=== PATIENT | female | born 1980 | race Caucasian/White ===

== ENCOUNTER 2016-06-01 08:57 | Emergency (ER) | payer OTHER ==
[2016-06-01 09:13] VITALS: BP 142/86
--- NOTE | 2016-06-01 10:06 | UC ---
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 today denies fever and chills left side of left neck pain that started 3 days ago has become painful with movement worse with coughing constant aching pain that radiates into top of her back taking ibuprofen for pain with some relief - History of Current Complaint Chief Complaint: UCGeneralIllness Stated Complaint: SINUS ISSUE NECK/EAR PAIN Time Seen by Provider: 06/01/16 10:04 Hx Obtained From: Patient Hx Last Menstrual Period: 05/28/16 - Allergies/Home Medications Allergies/Adverse Reactions: Allergies Allergy/AdvReac Type Severity Reaction Status Date / Time Latex Allergy Itching Verified 06/06/15 10:50 Home Medications: Home Medications Ibuprofen TAB* [Motrin TAB* 600 MG] 600 mg PO PRN 06/01/16 [History] PMH/Surg Hx/FS Hx/Imm Hx Previously Healthy: No - bronchitis Endocrine History Of: Reports: Diabetes - type 2 Denies: Thyroid Disease Cardiovascular History Of: Reports: Hypertension Denies: Cardiac Disorders, Pacemaker/ICD Respiratory History Of: Reports: Asthma, Bronchitis Denies: COPD GI/ History Of: Reports: Gall Bladder Disease - s/p cholecystectomy 2004 Denies: Gastroesophageal Reflux, Renal Disease Neurological History Of: Denies: CVA, Dementia, Seizures Psychological History Of: Reports: Depression Other History Of: Negative For: Anticoagulant Therapy - Surgical History Surgical History: Yes Surgery Procedure, Year, and Place: 1993 tonsils, 2003 , 2004 cholecystectomy, 2012 complete tooth extraction (uppers & lowers) - Family History Known Family History: Positive: None, Cardiac Disease, Other - Positive FMHx for URI Negative: Hypertension, Diabetes - Social History Occupation: Employed Full-time Lives: With Family Alcohol Use: None Substance Use Type: None Smoking Status (MU): Heavy Every Day Tobacco Smoker Amount Used/How Often: 1 pack /day Household Exposure Type: Cigarettes Cessation Counseling: Patient Advised to Stop Review of Systems Constitutional: Negative Skin: Negative Eyes: Negative ENT: Ear Ache, Nasal Discharge Respiratory: Cough Cardiovascular: Negative Gastrointestinal: Negative Genitourinary: Negative Motor: Negative Neurovascular: Negative Musculoskeletal: Negative Neurological: Negative Psychological: Negative All Other Systems Reviewed And Are Negative: Yes Physical Exam Triage Information Reviewed: Yes Appearance: No Pain Distress, Well-Nourished, Obese Vital Signs: Initial Vital Signs Temp 98.4 F 06/01/16 09:07 Pulse 80 06/01/16 09:07 Resp 18 06/01/16 09:07 BP 142/86 06/01/16 09:07 Pulse Ox 99 06/01/16 09:07 Vital Signs Reviewed: Yes Eyes: Positive: Conjunctiva Clear ENT: Positive: Pharyngeal erythema, Nasal congestion, Nasal drainage, TM bulging , TM red - left, Other: - frontal and maxillary sinus tenderness. Negative: Tonsillar swelling, Tonsillar exudate Neck: Positive: No Lymphadenopathy, Other: - Neck has no noted deformities . Curvature of cervical spine within normal limits. Spinous processes of cervical spine palpable, midline, and non-tender, No step-offs, Flexion, extension, of cervical spine causes no discomfort. turning head yto the laft causes slight discomfort, tenderness in trapezius left side Respiratory: Positive: Lungs clear, Normal breath sounds, No respiratory distress, No accessory muscle use Cardiovascular: Positive: RRR, No Murmur, Pulses Normal Abdomen Description: Positive: Nontender, Soft, Distended Bowel Sounds: Positive: Present Musculoskeletal: Positive: No Edema, Other: - see meck Neurological: Positive: Alert Psychological Exam: Normal Skin Exam: Normal Throat Pain/Nasal Course/Dx - Course Course Of Treatment: exam completed. will treat for otitis media and sinusitis secondary to viral illness, pt afebrile and lungs are clear -no imaging. neck pain - will rx for muscle relaxer NSAIDS and continue flexeril with PT followup if no improvement - Differential Dx/Diagnosis Differential Diagnosis/HQI/PQRI: Sinusitis, URI, Other - bronchitis,neck pain Provider Diagnoses: neck pain, sinusitis, otitis media-left Discharge - Discharge Plan Condition: Stable Disposition: HOME Prescriptions: Amoxicillin/Clavulanate TAB* [Augmentin TAB 875*] 875 mg PO BID #20 tab Benzonatate CAP* [Tessalon 100 MG CAP*] 100 mg PO TID PRN #30 cap PRN Reason: Cough Cyclobenzaprine TAB* [Flexeril 10 MG TAB*] 10 mg PO BID PRN #10 tab PRN Reason: Spasms - Muscle Patient Education Materials: Sinusitis (ED), Otitis Media (ED), Neck Pain (ED) Referrals: Tuyet Alvarado NP [Primary Care Provider] - Additional Instructions: Your blood pressure is elevated. Please contact your primary care provider within 1 day -4 weeks for further evaluation. Start flexeril as directed. Do not drink alcohol or drive while taking flexeril. Please call physical therapy for further evaluation and treatment if your neck pain doesn't improve apply heat, use massage or OTC icy hot patches for relief. Take ibuprofen for fever or pain. Please take antibiotic as directed Use your albuterol inhaler every 4-6 hours when needed for wheezing, shortness of breath or uncontrolled coughing. Increase fluids and rest Take acetaminophen or ibuprofen for fever or pain Please review your discharge instructions. If your symptoms do not improve please call your primary care provider or return to urgent care.
== END 2016-06-01 10:40 | disposition home or self-care (01) ==
LOC: UCEAST 08:57
DX: J32.1 Chronic frontal sinusitis (principal); J32.0 Chronic maxillary sinusitis; H66.92 Otitis media, unspecified, left ear; M54.2 Cervicalgia; E11.9 Type 2 diabetes mellitus without complications; I10 Essential (primary) hypertension; F17.210 Nicotine dependence, cigarettes, uncomplicated; Z71.6 Tobacco abuse counseling; E66.9 Obesity, unspecified; Z68.43 Body mass index [BMI] 50.0-59.9, adult; Z91.040 Latex allergy status
CPT/HCPCS: 99212; G0463

== ENCOUNTER 2016-12-04 10:33 | Emergency (ER) | payer OTHER ==
[2016-12-04 11:00] VITALS: BP 140/84
--- NOTE | 2016-12-04 11:04 | UC ---
Truncal Trauma HPI - HPI Summary HPI Summary: 36 YEAR OLD FEMALE PRESENTS WITH COMPLAINS OF LEFT RIB PAIN AFTER COUGHING. - History Of Current Complaint Chief Complaint: UCRespiratory Stated Complaint: RIB PAIN Time Seen by Provider: 12/04/16 11:03 Hx Obtained From: Patient Hx Last Menstrual Period: 11/29/16 Onset/Duration: Sudden Onset Severity Initially: Moderate Severity Currently: Moderate Pain Scale Used: 0-10 Numeric - 5 Mechanism Of Injury: Other - COUGH Aggravating Factor(s): Nothing Alleviating factor(s): Nothing Associated Signs And Symptoms: Positive: Negative - Allergies/Home Medications Allergies/Adverse Reactions: Allergies Allergy/AdvReac Type Severity Reaction Status Date / Time Hydrocodone Allergy Rash Verified 12/04/16 10:54 Latex Allergy Itching Verified 12/04/16 10:54 Home Medications: Home Medications Cetirizine* [ZyrTEC 10 MG TAB*] 5 mg PO DAILY 12/04/16 [History Confirmed ] Fluoxetine HCl [Prozac] 10 mg PO DAILY 12/04/16 [History Confirmed 12/04/16] Fluticasone-Salmeterol 500-50* [Advair Diskus 500-50*] 1 puff INH BID 12/04/16 [ History Confirmed 12/04/16] Insulin GLARGINE(*) [Lantus(*)] 0 units SUBCUT ONCE 12/04/16 [History Confirmed 12/04/16] Montelukast Sodium TAB* [Singulair TAB*] 5 mg PO DAILY 12/04/16 [History Confirmed 12/04/16] PMH/Surg Hx/FS Hx/Imm Hx Previously Healthy: Yes Other History Of: Negative For: Anticoagulant Therapy - Surgical History Surgical History: Yes Surgery Procedure, Year, and Place: 1993 tonsils, 2003 , 2004 cholecystectomy, 2013 complete tooth extraction (uppers & lowers) - Family History Known Family History: Positive: None, Cardiac Disease, Other - Positive FMHx for URI Negative: Hypertension, Diabetes - Social History Alcohol Use: None Substance Use Type: None Smoking Status (MU): Heavy Every Day Tobacco Smoker Amount Used/How Often: 1 pack /day Household Exposure Type: Cigarettes Review of Systems Constitutional: Negative Skin: Negative Eyes: Negative ENT: Negative Respiratory: Negative Cardiovascular: Negative Gastrointestinal: Negative Genitourinary: Negative Motor: Negative Neurovascular: Negative Musculoskeletal: Other: - LEFT RIB PAIN Neurological: Negative Psychological: Negative All Other Systems Reviewed And Are Negative: Yes Physical Exam Triage Information Reviewed: Yes Vital Signs: Initial Vital Signs Temp 36.6 C 12/04/16 10:55 Pulse 73 12/04/16 10:55 Resp 20 12/04/16 10:55 BP 140/84 12/04/16 10:55 Pulse Ox 100 12/04/16 10:55 Eye Exam: Normal ENT Exam: Normal Dental Exam: Normal Neck exam: Normal Neck: Positive: 1 Respiratory Exam: Normal Cardiovascular Exam: Normal Abdominal Exam: Normal Musculoskeletal: Positive: Other: - LEFT RIB PAIN Neurological Exam: Normal Psychological Exam: Normal Skin Exam: Normal Truncal Trauma Course/Dx - Differential Dx/Diagnosis Provider Diagnoses: LEFT RIB PAIN Discharge - Discharge Plan Condition: Stable Disposition: HOME Prescriptions: Methocarbamol TAB* [Robaxin 500 MG TAB*] 500 mg PO TID PRN #30 tab PRN Reason: Spasms Patient Education Materials: Rib Contusion (ED) Referrals: Tuyet Alvarado NP [Primary Care Provider] -
--- NOTE | 2016-12-04 11:49 | RAD ---
HISTORY: Left-sided rib pain, cough COMPARISONS: Chest x-ray dated November 29, 2016 VIEWS: 8, Frontal view of the chest with frontal and oblique views of the left hemithorax FINDINGS: There is no displaced rib fracture or pneumothorax. The visualized lungs are clear. IMPRESSION: NO DISPLACED RIB FRACTURE OR PNEUMOTHORAX.
== END 2016-12-04 12:09 | disposition home or self-care (01) ==
LOC: UCEAST 10:33
DX: M89.8X8 Other specified disorders of bone, other site (principal); Z79.4 Long term (current) use of insulin; F17.210 Nicotine dependence, cigarettes, uncomplicated
CPT/HCPCS: 99212; G0463

== ENCOUNTER 2016-12-04 19:58 | Emergency (ER) | payer OTHER ==
--- NOTE | 2016-12-04 20:44 | ED ---
HPI Cardiac - HPI Summary HPI Summary: Pt here w/ Lt sided rib pain s/p coughing earlier today. [place] a "pop" and has had pain w/ deep breath on Lt side of ribs since. Has had URI w/ cough this past week - cough is dry. Used nebulizer this morning to help her cough and this is when she had her incident - no pain prior to this. Was seen at and rib XR/CXR reveal no fx nor pneumothorax. She was diagnosed with a rib contusion. She is here today as she is still concerned about her pain. Denies fever, chills, chest pain, N/V/D, shortness of breath or trouble breathing. States she's fractured a rib coughing in this fashion before. - History of Current Complaint Chief Complaint: EDChestWallPain Stated Complaint: RIB PAIN Time Seen by Provider: 12/04/16 20:19 Hx Obtained From: Patient Hx Last Menstrual Period: 11/29/16 Pain Intensity: 10 - Allergy/Home Medications Allergies/Adverse Reactions: Allergies Allergy/AdvReac Type Severity Reaction Status Date / Time Hydrocodone Allergy Rash Verified 12/04/16 10:54 Latex Allergy Itching Verified 12/04/16 10:54 PMH/Surg Hx/FS Hx/Imm Hx Previously Healthy: Yes Endocrine/Hematology History: Reports: Hx Diabetes - type 2 Denies: Hx Anticoagulant Therapy, Hx Thyroid Disease Cardiovascular History: Reports: Hx Hypertension Denies: Hx Pacemaker/ICD Respiratory History: Reports: Hx Asthma - uses nebulizer treatments PRN, Other Respiratory Problems/Disorders - allergic rhinits, smoker Denies: Hx Chronic Obstructive Pulmonary Disease (COPD) GI History: Reports: Hx Gall Bladder Disease - s/p cholecystectomy 2004 History: Denies: Hx Renal Disease Musculoskeletal History: Reports: Other Musculoskeletal History - H/o rib fx - no residual Sensory History: Denies: Hx Contacts or Glasses Opthamlomology History: Denies: Hx Contacts or Glasses Neurological History: Denies: Hx Dementia, Hx Seizures Psychiatric History: Reports: Hx Depression Denies: Hx Substance Abuse - Surgical History Surgery Procedure, Year, and Place: 1993 tonsils, 2003 , 2004 cholecystectomy, 2012 complete tooth extraction (uppers & lowers) Infectious Disease History: No Infectious Disease History: Denies: Hx Clostridium Difficile, Hx Hepatitis, Hx Human Immunodeficiency Virus (HIV), Hx of Known/Suspected MRSA, Hx Shingles, Hx Tuberculosis, Hx Known/ Suspected VRE, Hx Known/Suspected VRSA, History Other Infectious Disease, Traveled Outside the [place] in Last 30 Days - Family History Known Family History: Positive: None, Cardiac Disease, Other - Positive FMHx for URI Negative: Hypertension, Diabetes - Social History Alcohol Use: None Hx Substance Use: No Substance Use Type: Reports: None Hx Tobacco Use: Yes Smoking Status (MU): Heavy Every Day Tobacco Smoker Amount Used/How Often: 1 pack /day Review of Systems Constitutional: Negative Negative: Fever, Chills, Fatigue Cardiovascular: Negative Negative: Chest Pain Positive: Cough. Negative: Shortness Of Breath Gastrointestinal: Negative Negative: Abdominal Pain, Vomiting, Diarrhea, Nausea Positive: no symptoms reported Skin: Negative Negative: Rash, Bruising Neurological: Negative Positive: Anxious - concerned All Other Systems Reviewed And Are Negative: Yes Physical Exam Triage Information Reviewed: Yes Vital Signs On Initial Exam: Initial Vitals Temp Pulse Resp BP Pulse Ox 98.8 F 78 14 147/68 98 12/04/16 20:09 12/04/16 20:09 12/04/16 20:09 12/04/16 20:09 12/04/16 20:09 Vital Signs Reviewed: Yes Appearance: Positive: Well-Appearing, No Pain Distress - tearful with anxiety but appears comfortable sitting and breathing otherwise, Obese Skin: Positive: Warm, Dry - no erythema, no ecchymosis Head/Face: Positive: Normal Head/Face Inspection Eyes: Positive: Normal, EOMI, Conjunctiva Clear. Negative: Conjunctiva Inflammed, Discharge ENT: Positive: Hearing grossly normal Respiratory/Lung Sounds: Positive: Clear to Auscultation, Breath Sounds Present , Other - Lt anterior/lateral ribs about level 9-11 TTP - no flail chest, no gross deformity. Negative: Rales, Rhonchi, Stridor, Tracheal Deviation, Wheezes Cardiovascular: Positive: Normal, RRR, S1, S2. Negative: Murmur, Rub Abdomen Description: Positive: Nontender, Soft Bowel Sounds: Positive: Present Musculoskeletal: Positive: Normal, Strength/ROM Intact - can lift arm w/o pain here Neurological: Positive: Normal, Sensory/Motor Intact, Alert, Oriented to Person Place, Time, CN Intact II-III Psychiatric: Positive: Anxious - [place] Coma Scale Coma Scale Total: 15 Diagnostics - Vital Signs Vital Signs Temp Pulse Resp BP Pulse Ox 12/04/16 20:09 98.8 F 78 14 147/68 98 - Laboratory Lab Statement: Any lab studies that have been ordered have been reviewed, and results considered in the medical decision making process. Disposition - Course Course Of Treatment: Pt appears to have intercostal rib sprain/strain. No clinical s/sx of anything more serious (ie. PE, etc). Advised supportive care and danger s/sx discussed for when to return to ED. Otherwise, f/u w/ PCP. - Diagnoses Provider Diagnoses: Intercostal muscle strain Discharge - Discharge Plan Condition: Stable Disposition: HOME Patient Education Materials: Muscle Strain (ED), Rib Contusion (ED) Forms: *Work Release Referrals: Tuyet Alvarado NP [Primary Care Provider] - Additional Instructions: Rest, ice You have received a lidoderm pain patch here tonight - if this helps, you may request more through PCP You may also take ibuprofen with food alternating with acetaminophen for pain Use a pillow to brace ribs when sneezing or coughing Follow-up with PCP this week if same or worse *If you develop shortness of breath, bloody cough, fever, chills, fatigue, chest or back pain, return to ED
[2016-12-04] MEDS ORDERED: Lidocaine PATCH 5%* 1 PATCH ONE (21:28)
[2016-12-04] MEDS ORDERED: Lidocaine PATCH 5%* 1 PATCH TRANSDERM SCH (22:00)
[2016-12-04 22:43] VITALS: BP 136/67
[2016-12-05] MEDS ORDERED: Lidocaine Patch REMOVE* 1 NOTE MISC SCH (21:00)
== END 2016-12-04 22:35 | disposition home or self-care (01) ==
LOC: ED 19:58
DX: S29.019A Strain of muscle and tendon of unspecified wall of thorax, initial encounter (principal); X50.9XXA Other and unspecified overexertion or strenuous movements or postures, initial encounter; Y92.9 Unspecified place or not applicable; E11.9 Type 2 diabetes mellitus without complications; I10 Essential (primary) hypertension; J45.909 Unspecified asthma, uncomplicated; F17.210 Nicotine dependence, cigarettes, uncomplicated
CPT/HCPCS: 99282; A9270-GY

== ENCOUNTER 2017-02-11 01:32 | Emergency (ER) | payer OTHER ==
[2017-02-11] MEDS ORDERED: Ibuprofen TAB* 600 MG PO ONE (02:08)
[2017-02-11] MEDS ORDERED: traMADol TAB* 50 MG PO ONE (02:08)
--- NOTE | 2017-02-11 02:53 | ED ---
Lower Extremity - HPI Summary HPI Summary: Patient presents to the ED with CC of right thigh redness, pain, swelling with a definite line from just below the knee extending to the anterior thigh with a palpable cord. Denies trauma or puncture wounds. Denies drug use. Patient is a smoker, on bedrest most of the time. Denies recent travel or hx of PE or DVT. PMHX significant for diabetes, obesity and HTN. She states she first noticed the erythema just below the knee on the lateral side as a small bump. In the past few days it has extended through the lateral side of the knee and to the anterior thigh. Now also having warmth and erythema surrounding suggestive of a co-existing cellulitis. She denies fevers, sweats, chills or recent illness. She has been feeling otherwise well. She denies numbness, tingling. She has been ambulating, but states the area is painful on palpation and standing. Better with rest. She has not taken anything for relief. - History of Current Complaint Chief Complaint: EDExtremityLower Stated Complaint: RT LEG PAIN Time Seen by Provider: 02/11/17 01:41 Hx Obtained From: Patient Hx Last Menstrual Period: 11/29/16 Mechanism Of Injury: Unknown Onset of Pain: Days Onset/Duration: Days Severity Initially: Severe Severity Currently: Severe Pain Intensity: 10 Pain Scale Used: 0-10 Numeric Timing: Constant Location: Is Discrete @ - right leg Associated Signs And Symptoms: Positive: Swelling, Redness Aggravating Factor(s): Standing, Ambulation Alleviating Factor(s): Rest Able to Bear Weight: No - Risk Factors Gout Risk Factors: Diabetes, Hypertension, Renal Disease, Hyperlipidemia, Obesity, Peripherial Vascular Disease DVT Risk Factors: Smoking, Recent Period Of Bedrest Septic Arthritis Risk Factor: Negative - Allergies/Home Medications Allergies/Adverse Reactions: Allergies Allergy/AdvReac Type Severity Reaction Status Date / Time Hydrocodone Allergy Rash Verified 12/04/16 10:54 Latex Allergy Itching Verified 12/04/16 10:54 PMH/Surg Hx/FS Hx/Imm Hx Previously Healthy: Yes Endocrine/Hematology History: Reports: Hx Diabetes - type 2 Denies: Hx Anticoagulant Therapy, Hx Thyroid Disease Cardiovascular History: Reports: Hx Hypertension Denies: Hx Pacemaker/ICD Respiratory History: Reports: Hx Asthma - uses nebulizer treatments PRN, Other Respiratory Problems/Disorders - allergic rhinits, smoker Denies: Hx Chronic Obstructive Pulmonary Disease (COPD) GI History: Reports: Hx Gall Bladder Disease - s/p cholecystectomy 2004 History: Denies: Hx Renal Disease Musculoskeletal History: Reports: Other Musculoskeletal History - H/o rib fx - no residual Sensory History: Denies: Hx Contacts or Glasses Opthamlomology History: Denies: Hx Contacts or Glasses Neurological History: Denies: Hx Dementia, Hx Seizures Psychiatric History: Reports: Hx Depression Denies: Hx Substance Abuse - Surgical History Surgery Procedure, Year, and Place: 1993 tonsils, 2003 , 2004 cholecystectomy, 2012 complete tooth extraction (uppers & lowers) - Immunization History Hx Pertussis Vaccination: No Immunizations Up to Date: Unable to Obtain/Confirm Infectious Disease History: No Infectious Disease History: Denies: Hx Clostridium Difficile, Hx Hepatitis, Hx Human Immunodeficiency Virus (HIV), Hx of Known/Suspected MRSA, Hx Shingles, Hx Tuberculosis, Hx Known/ Suspected VRE, Hx Known/Suspected VRSA, History Other Infectious Disease, Traveled Outside the [place] in Last 30 Days - Family History Known Family History: Positive: None, Cardiac Disease, Other - Positive FMHx for URI Negative: Hypertension, Diabetes - Social History Occupation: Unemployed Lives: Alone Alcohol Use: None Hx Substance Use: No Substance Use Type: Reports: None Hx Tobacco Use: Yes Smoking Status (MU): Heavy Every Day Tobacco Smoker Amount Used/How Often: 1 pack /day Review of Systems Constitutional: Negative Negative: Fever, Chills, Fatigue, Skin Diaphoresis Eyes: Negative Cardiovascular: Negative Respiratory: Negative Genitourinary: Negative Positive: no symptoms reported, see HPI Positive: Other - erythema and warm upper right upper thigh with swelling. Palpable cord from just below the knee to the upper thigh measruing 8inches. Psychological: Normal All Other Systems Reviewed And Are Negative: Yes Physical Exam Triage Information Reviewed: Yes Vital Signs On Initial Exam: Initial Vitals Temp Pulse Resp BP Pulse Ox 97.7 F 75 18 101/76 98 02/11/17 01:35 02/11/17 01:35 02/11/17 01:35 02/11/17 01:35 02/11/17 01:35 Vital Signs Reviewed: Yes Appearance: Positive: Well-Appearing, Well-Nourished, Obese Skin: Positive: Warm, Skin Color Reflects Adequate Perfusion, Other - erythema and warm upper right upper thigh with swelling. Palpable cord from just below the knee to the upper thigh measruing 8inches Head/Face: Positive: Normal Head/Face Inspection Eyes: Positive: EOMI, JANY, Conjunctiva Clear Neck: Positive: Supple, Nontender, No Lymphadenopathy Respiratory/Lung Sounds: Positive: Clear to Auscultation, Breath Sounds Present Cardiovascular: Positive: RRR, Pulses are Symmetrical in both Upper and Lower Extremities Musculoskeletal: Positive: Normal Neurological: Positive: Speech Normal Psychiatric: Positive: Affect/Mood Appropriate - [place] Coma Scale Coma Scale Total: 15 Diagnostics - Vital Signs Vital Signs Temp Pulse Resp BP Pulse Ox 02/11/17 01:35 97.7 F 75 18 101/76 98 - Laboratory Result Diagrams: 02/11/17 02:45 02/11/17 02:45 Lab Statement: Any lab studies that have been ordered have been reviewed, and results considered in the medical decision making process. Lower Extremity Course/Dx - Course Course Of Treatment: Patient is evaluated for superficial thrombophlebitis vs. DVT vs. suppurative thrombophlembitis or other pathology. Erythema and warm upper right upper thigh with slight swelling, although unable to definitevely say d/t obesity. Palpable cord from just below the knee to the upper thigh measruing 8 inches. Painful to palpation. Unable to complete US on the weekend/ overnights. I have informed the patient we will await labs in the hopes to begin a 3-day course of xarelto. I have also encouraged her to use ice, elevation and take ibuprofen for phlebitis. Signed out to Dr. Bahena pending d- dimer and labs. Given tramadol 50mg in ED for pain. Patient remains tearful on exam. - Diagnoses Differential Diagnosis/HQI/PQRI: Positive: Phlebitis Provider Diagnoses: Phlebitis Discharge - Discharge Plan Condition: Good Disposition: HOME Prescriptions: Rivaroxaban TAB(*) [Xarelto 15 mg(*)] 15 mg PO BID 3 Days #6 tab Patient Education Materials: Superficial Thrombophlebitis (ED) Referrals: Tuyet Alvarado NP [Primary Care Provider] - Additional Instructions: d/c ibuprofen, warm compresses, elevation ultrasound of the right leg in AM Monday
[2017-02-11 03:00] LABS: Hematocrit 40 % (35-47); Hemoglobin 13.4 g/dl (12.0-16.0); Mean Corpuscular HGB Conc 33 g/dl (31-36); Mean Corpuscular Hemoglobin 28 pg (27-31); Mean Corpuscular Volume 83 fL (80-97); Mean Platelet Volume 8 um3 (7.4-10.4); Red Blood Count 4.82 10^6/ul (4.0-5.4); Red Cell Distribution Width 14 % (10.5-15); White Blood Count 12.2 10^3/ul (3.5-10.8)
[2017-02-11 03:13] LABS: Albumin 3.6 g/dL (3.2-5.2); BUN/Creatinine Ratio 23.3 (8-20); C Reactive Protein 24.63 mg/L (< 5.00); Calcium 8.9 mg/dL (8.6-10.3); EGFR African American 95.5 (>60); EGFR Non-African American 74.2 (>60); Potassium 3.9 mmol/L (3.5-5.0); Total Bilirubin 0.5 mg/dL (0.2-1.0); Total Protein 6.6 g/dL (6.4-8.9)
[2017-02-11] MEDS ORDERED: Rivaroxaban TAB(*) 15 MG PO ONE (03:48)
[2017-02-11 04:41] VITALS: BP 110/79
== END 2017-02-11 04:39 | disposition home or self-care (01) ==
LOC: ED 01:32
DX: I80.9 Phlebitis and thrombophlebitis of unspecified site (principal); F17.210 Nicotine dependence, cigarettes, uncomplicated; E11.9 Type 2 diabetes mellitus without complications; I10 Essential (primary) hypertension; E66.9 Obesity, unspecified
CPT/HCPCS: 36415; 80053; 85025; 85379; 86140; 99285; A9270-GY

== ENCOUNTER 2017-03-03 14:23 | Emergency (ER) | payer OTHER ==
[2017-03-03 14:31] VITALS: BP 141/74
--- OUTSIDE RECORDS SUMMARY | 2017-03-03 15:03 | XMS REPORT ---
:1980 External Reference #:[id number] Author Organization [facility] Address [address] [address] Phone [phone] Care Team Providers Name Role Phone Karla Rich MD Primary Care Physician Unavailable Payers Type Date Identification Numbers Payment Provider Subscriber Commercial Effective: Policy Number: [id number] [facility] [id number] [address] [address] [place] [address] Medigap Part B Expires: 2016 Policy Number: [id number] Medicaid Marya Pina Group Name: 1 1 [address] PayID: [id number] [place] [address] Commercial Expires: 2016 Policy Number: [employer] MNG Marya Pina [id number] [facility] Group Name: [id number] [address] [address] PayID: [id number] [place] [address] Commercial Effective: 2009 Policy Number: Total Care/[place] MNG Marya Pina [id number] [facility] Expires: 2012 PayID: [id number] [address] [address] [place] [address] Problems Date Description Provider Status Onset: 05/12/2011 Type II diabetes mellitus uncontrolled Constance Larkin M.D. Active Onset: 05/12/2011 Allergic rhinitis Constance Larkin M.D. Active Onset: 05/12/2011 Morbid obesity Constance Larkin M.D. Active Onset: 05/12/2011 Tobacco user Constance Larkin M.D. Active Onset: 03/14/2012 Benign essential hypertension Cristina Garcia M.D. Active Family History Date Family Member(s) Problem(s) Comments General Diabetes General Hypertension Social History Type Date Description Comments Marital Status Lives With Son Occupation [employer] Smoking Patient is a current smoker, 15 yrs smokes every day Smoking 1 pack/day tried quitting with patches which caused allergic contact dermatitis Allergies, Adverse Reactions, Alerts Date Description Reaction Status Severity Comments 05/21/2012 Hydrocodone Pt states she itch all over. active 08/17/2015 Latex active 05/12/2011 NKDA inactive Medications Medication Date Status Form Strength Qnty SIG Indications Ordering Provider Aspirin 02/13 Active Tablets 325mg 30tab 1 by mouth Karla /2017 s every day Bereket Rich Diclofenac 01/11 Active Solution 1.5% 150ml apply 5-10 Tuyet Sodium drops to Varn, N.P. affected area, 3-4 times a day Diclofenac 01/09 Active Gel 1% 100gm Apply 4 Gms Tuyet Sodium qid prn for Varn, N.P. pain Ibuprofen 10 Active Tablets 800mg 90tab by mouth I80.02 s three times Varn, N.P. a day as needed Lidocaine 10/ Active Ointment 5% 35uni apply ts externally Varn, N.P. as needed once daily Doxepin HCL 10/ Active Cream 5% 135gm Apply 2 - 3 Gms bid _ Varn, N.P. tid prn for neuropathic pain Advair Diskus 11/29 Active Aerosol 500-50mcg 60uni inhale one J45.909 /Dose ts dose by Varn, N.P. mouth twice daily Montelukast 11/29 Active Tablets 10mg 30tab 1 by mouth J45.41 Sodium s every day Varn, N.P. Nicorette 11/29 Active Gum 4mg 160un Chew 1 piece F17.218 its and tuck in Varn, N.P. your gums as needed. Freestyle Lite 10/19 Active 300un 2 times its daily or as Varn, N.P. needed dx e11.9 Freestyle 10/19 Active Misc 300un test up to 2 Tuyet Lancets its times a day Varn, N.P. or as needed Splint Wrist 10/04 Active Misc 1unit Wear this at M79.641 [place] Brace/Left-Rig s night Varn, N.P. ht/Reversible Basaglar 09/20 Active Solution 100Unit/M 30ml 64 units sc Tuyet Kwik Pen-Inject L daily in Am Varn, N.P. Metformin HCL 07/14 Active Tablets ER 500mg 120ta 4 by mouth E11.65 Tuyet ER /2016 24HR bs with dinner Varn, N.P. Fluconazole 05/27 Active Tablets 150mg 2tabs one by mouth may repeat Varn, N.P. in 3 days as needed Simethicone 04/29 Active Capsules 180mg 30cap 1 by mouth R19.7 s after each Varn, N.P. meal Fluoxetine HCL 03/02 Active Tablets 20mg 30tab take 1 F43.23 s tablet by Varn, N.P. mouth every day Ventolin HFA 02/14 Active Aerosol 108(90Bas 18uni 2 puffs by e) ts mouth four Varn, N.P. mcg/Act times a day as needed Freestyle Lite 12/28 Active Device 1unit check E11.65 Tuyet Blood Glucose s fingerstick Varn, N.P. Monitoring three times System daily or as needed, DX - E11.65 Januvia 10/11 Active Tablets 100mg 30tab 1 by mouth s every day Varn, N.P. Ipratropium 08/16 Active Solution 0.5-2.5(3 180un 1 vial in J20.9 [place] )mg/3ML its nebulizer Varn, N.P. rol Sulfate three times a day as needed for asthma Nebulizer 08/16 Active Device 1unit use three J20.9 s times a day Varn, N.P. as needed Nexium 06/[address] 20mg 30cap 1 by mouth R10.13 s every day Varn, N.P. Senna Laxative 06/06 Active Tablets 25mg 15tab 1 tab by K59.00 Noemy s mouth 1-2 MD Graeme times as needed Compression 04/22 Active Misc 2unit knee high I80.02 Stockings s stockings 20 Varn, N.P. - 30 mm Cetirizine HCL 04/22 Active Tablets 10mg 30tab 1 by mouth J30.9 s every day Varn, N.P. Ramipril 12/17 Active Capsules 5mg 30cap 1 by mouth I10 s every day Varn, N.P. Pen [place] 09/02 Active Misc 31G X 5 90uni use with Tuyet mm ts lantus subq Varn, N.P. everyday Lantus 08/30 Active Solution 100Unit/M 15ml inject 66 E11.65 Solostar Pen-Inject L units sc Varn, N.P. once daily Fluticasone 04/25 Active Suspension 50mcg/Act 16gm 1 spray each Tuyet Propionate nostril Varn, N.P. daily as needed Nebulizer 11/28 Active Kit J45.909 Cristina Compressor/Sean /2012 sagar Garciailter/7' M.D. Tubing/Aerosol T/Mthpiece Freestyle Lite 04/12 Active 100un use as Cristina Test Strip /2012 its directed Radha, every day or M.D. as needed dx: 250.02 Methocarbamol Active Tablets 1 by mouth Unknown /0000 twice a day as needed for spasm Xarelto 02/13 Hx Tablets 15mg 30tab (Not Karla /2017 s Taking)1 by Cotton, - mouth every M.D. /2016 Diclofenac 12/23 Hx Gel 3% 100gm Apply 0.5 Gm Tuyet Sodium gel bid Varn, N.P. - 01/09 Celebrex 12/09 Hx Capsules 200mg 30cap 1 by mouth R07.89 s every day Varn, N.P. Augmentin 12/09 Hx Tablets 875-125mg 20tab one by mouth R05 s every 12 Varn, N.P. - hours for 12/19 Benzonatate 12/09 Hx Capsules 200mg 60cap one by mouth s three times Varn, N.P. - daily as 01/08 needed for cough Lidocaine-Pril 12/05 Hx Cream 2.5-2.5% 30gm apply 10 gm Tuyet ocaine-Cream every 3 Varn, N.P. Base - hours as 12/23 needed for pain Prednisone 11/11 Hx Tablets 10mg 40tab 4 tablets by J20.9 s mouth for 4 Varn, N.P. - days 3 11/27 tablets by mouth for 4 days 2 tablets by mouth for 4 days 1 tablet by mouth for 4 days Augmentin 11/11 Hx Tablets 875-125mg 20tab one by mouth J20.9 s every 12 Varn, N.P. - hours for 11/21 Benzonatate 11/11 Hx Capsules 100mg 30cap one by mouth J20.9 s three times Varn, N.P. - daily as 11/25 needed for cough Pulmicort 10/04 Hx Aerosol 180mcg/Ac 1unit 2 puffs hal t s twice daily Varn, N.P. - 11/11 Doxycycline 09/29 Hx Tablets 100mg 20tab 1 tablet by Tuyet Hyclate s mouth bid x Varn, N.P. - 10 days 10/09 Augmentin 08/22 Hx Tablets 875-125mg 20tab one by mouth J20.9 s every 12 Varn, N.P. - hours for 09/01 Benzonatate 08/22 Hx Capsules 100mg 30cap one by mouth J20.9 s three times Varn, N.P. - daily as 09/06 needed for cough Prednisone 05/12 Hx Tablets 5mg 60tab 4 tabs po qd s x 4d then 3 Varn, N.P. - tabs po qd x 05/28 3d then tabs po qd x 2d then 1 tab po qd x 1 d then 1/2 tab po qd x 2d. Azithromycin 04/29 Hx Tablets 250mg 6tabs two tabs day J20.9 one, one Varn, N.P. - daily till 05/09 Vistaril 03/02 Hx Capsules 50mg 30cap one by mouth F43.23 s at bedtime Varn, N.P. - 11/29 Lotrisone 03/02 Hx Cream 1-0.05% 15gm apply B37.3 externally Varn, N.P. - bid-tid 03/16 Fluconazole 01/25 Hx Tablets 150mg 2tabs one by mouth July repeat Varn, N.P. - in 3 days as 04/29 Azithromycin 12/30 Hx Tablets 250mg 6tabs two tabs day J20.9 one, one Varn, N.P. - daily till 01/09 Prednisone 12/30 Hx Tablets 10mg J20.9 Ordering - Provider 01/13 Azithromycin 10/25 Hx Tablets 250mg 6tabs two tabs day H66.93 one, one Varn, N.P. - daily till 11/04 Tobramycin 08/24 Hx Solution 0.3% 5ml 1 drop in affected eye Varn, N.P. - every 4hours 08/31 x 7 Nystatin 08/16 Hx Suspension [id number] 16oz 4 B37.0 t/ML milliliters Varn, N.P. - four times a 07/25 day, swi and swallow for 14 days Azithromycin 08/16 Hx Tablets 250mg 6tabs two tabs day J20.9 one, one Varn, N.P. - daily till 08/26 Fluconazole 08/16 Hx Tablets 150mg 2tabs one by mouth July repeat Varn, N.P. - in 3 days as 01/02 Prednisone 08/01 Hx Tablets 10mg 30tab 5tabx s 2days,4 [place]ach[place]ara, - uths5gmog M.D. 08/16 [id number], kgzr4rmpt,1t abxday. Azithromycin 07/23 Hx Tablets 250mg 6tabs two tabs day J20.9 one, one Varn, N.P. - daily till 08/02 Benzonatate 07/23 Hx Capsules 200mg 30cap one by mouth J20.9 s three times Varn, N.P. - daily as 09/07 needed for cough Nicotine Mini 06/14 Hx Lozenges 2mg 81uni For weeks 1 F17.210 ts to 6: One Varn, N.P. - lozenge po q 04/29 1 - 2 hours /2016 prn Colace 06/06 Hx Capsules 100mg 30cap 1 tab by K59.00 Noemy s mouth twice MD Graeme - daily 07/25 Ibuprofen 04/22 Hx Tablets 600mg 120ta 1 by mouth I80.02 bs every 6 Varn, N.P. - hours as 12/23 needed for pain Nicotine 01/20 Hx Lozenges 4mg 216un 1 lozenge F17.210 Polacrilex its every 1 - 2 Varn, N.P. - hours 04/22 Doxycycline 12/23 Hx Tablets 100mg 20tab one po bid x Hycl s 10 days Varn, N.P. - 01/02 Azithromycin 12/17 Hx Tablets 250mg 6tabs two tabs day J20.9 one, one Varn, N.P. - daily till 12/23 Benzonatate 12/17 Hx Capsules 100mg 30cap one by mouth J20.9 s three times Varn, N.P. - daily as 12/31 needed for cough Lantus 12/17 Hx Solution 100Unit/M 45ml Use 22 units J20.9 Solost Pen-Inject L daily Varn, N.P. - 01/19 Chantix 12/17 Hx Tablets 0.5mg X 1tabs take as Z72.0 Tuyet Starting 11 & directed Varn, N.P. Charlie - 1 mg X 42 (0.5 mg by 01/19 mouth daily x3 days, 0.5 mg twice a day x 4 days, then 1 mg twice a day up to three months) Paroxetine HCL 05/09 Hx Tablets 40mg 30tab 1 by mouth F32.9 s every day Varn, N.P. - 08/16 Azithromycin 05/09 Hx Tablets 250mg 6tabs two tabs day 466.0 one, one Varn, N.P. - daily till 05/19 Benzonatate 05/09 Hx Capsules 100mg 30cap one by mouth 466.0 s three times Varn, N.P. - daily as 05/19 needed cough Amoxicillin 08/30 Hx Tablets 500mg 14tab 1 by mouth 382.9 s twice a day Rebekah Garcia.DJessica 09/06 Metformin HCL 08/30 Hx Tablets ER 1000mg 60tab take 2 E11.65 Tuyet ER (Osm) 24HR s tablets once Varn, N.P. - daily 07/14 Amoxicillin/Cl 05/03 Hx Tablets 500-125mg 14tab take 1 381.4 s tablet twice Radha, Potassium - daily until M.D. 08/30 Chantix 05/03 Hx Tablets 0.5mg X QS take as 305.1 Cristina Starting 11 & directed Charlie Garcia - 1 mg X 42 M.D. 05/09 Azithromycin 04/15 Hx Tablets 250mg 6tabs two tabs day 381.4 richar, richar Garcia, - daily till M.D. 05/03 Prednisone 01/22 Hx Tablets 5mg 40tab as directed 466.0 s Varn, N.P. - 04/15 Fluticasone 01/22 Hx Suspension 50mcg/Act 16gm 2 sprays 381.81 Tuyet each nostril Varn, N.P. - daily as 02/21 needed Azithromycin 11/28 Hx Tablets 250mg 6tabs two tabs day 493.90 one, one Radha, - daily till M.D. 01/07 Gabapentin 10/29 Hx Capsules 300mg 90cap 1-2 capsules 729.5 s by mouth Radha, - three times M.D. 04/15 Escitalopram 10/29 Hx Tablets 10mg 60tab take 10mg 311 Cristina Oxalate s daily x 7 Radha, - days and M.D. 10/29 increase to 20mg daily Escitalopram 10/29 Hx Tablets 20mg 30tab Take 1 311 Tuyet Oxalate s Tablet By Varn, N.P. - Mouth Every Nicotrol 08/17 Hx Inhaler 10mg 168un inhale 1 305.1 Inhaler its cartridge Radha, - inhaled M.D. 05/03 orally repeatedly like a cigarette 7 times per day as needed for smoking cessation Chantix 06/25 Hx Tablets 1mg 60tab take one 305.1 Continuing s tablet by Jv Garcia - mouth twice M.D. 08/17 a Advair Diskus 05/21 Hx Aerosol 250-50mcg 14uni 1 puff by Radha45Lorin Benz /Dose ts mouth twice Varn, N.P. - a day 11/29 Proair HFA 05/21 Hx Aerosol 108(90Bas 1unit two puffs J45.909 Tuyet /2013 e) s every 4 Varn, N.P. - mcg/Act hours as 09/22 needed for wheeze and chest tightness. Chantix 05/21 Hx Tablets 0.5mg X QS take as 305.1 Cristina Starting 11 & directed Charlie Garcia - 1 mg X 42 M.D. 06/25 Amoxicillin/Po 05/21 Hx Tablets 875-125mg 20tab take 1 382.9 Cristina tassium s tablet by Radha Clavulanate - mouth every M.D. 08/17 12 hours /2012 Freestyle Lite 04/12 Hx 100un once daily Cristina Lanc its or as needed Radha - M.DJessica 10/19 Augmentin 04/06 Hx Tablets 500-125mg 20tab Take 1 Cristina s tablet by Radha, - mouth every M.D. 05/21 12 hours Acetaminophen/ 04/06 Hx Tablets 300-30mg 30tab 1 tab po 521.08 Cristina Codeine #3 s every 4-6 Radha, - hours as M.D. 05/21 needed for pain Clindamycin 04/04 Hx Capsules 300mg 60cap take 2 Cristina HCL s capsules by Radha, - mouth every M.D. 04/06 8 hours for 10 days Metformin HCL 03/28 Hx Tablets 500mg 60tab 1 po bid 250.02 s Radha - M.D. 05/21 Nicorette 03/28 Hx Gum 2mg 100un Chew one 305.1 Cristina Starter Kit its piece as Radha, - needed. M.D. 08/17 Oxycodone/Acet 03/14 Hx Capsules 5-500mg 10cap take 1 521.08 Cristina aminophen s tablet every Radha, - 8hrs as M.D. 04/06 needed for acute pain Fluticasone 06/12 Hx Suspension 50mcg/Act 1unit 1 squirts Constance Propionate s each nostril Chaya, - qd M.D. 03/28 Fexofenadine 05/11 Hx Tablets 180mg 90tab 1 po qd 477.9 Constance HCL /2011 s Chaya, - M.D. 03/28 Nasonex 05/11 Hx Suspension 50mcg/Act 1unit 1 squirt 477.9 Constance s intranasal Chaya, - every day M.D. 03/28 Metformin HCL 05/11 Hx Tablets 1000mg 180ta 1 po bid 250.02 bs Radha, - M.D. 08/30 Loratadine Hx Tablets 10mg 1 po qd Unknown /0000 - 03/28 Sertraline HCL Hx Tablets 50mg 90tab 1 po qd Unknown /0000 s - 03/28 Metformin HCL Hx Tablets ER 500mg 30tab 1 po qd Unknown ER /0000 24HR s - 03/14 Lisinopril Hx Tablets 5mg 30tab 1 po qd Cristina /0000 s Rebekah Garcia M.D. 08/30 Albuterol Hx Aerosol 90mcg/Act 3unit 2 puffs po 493.90 Cristina /0000 s qid prn Rebekah Garcia M.D. 05/21 Ipratropium Hx Solution 0.03% 30ml instill 2 Unknown [place] /0000 sprays in - each nostril 03/28 twice a day /2012 Nasonex Hx Suspension 50mcg/Act 1unit 2 sprays to Unknown /0000 s each nostril - twice daily 05/15 Ibuprofen Hx Tablets 800mg 30tab by mouth Cristina / s three times Radha - a day as M.DJessica 09/12 Albuterol Hx Nebulizer (2.5mg/3M 100un 1 vial via Tuyet Sulfate /0000 L) 0.083% its nebulizer 4 Varn, N.P. - times daily 11/29 as needed Hydrocodone/Ac Hx Tablets 5-500mg 30tab one or two Unknown etaminophen /0000 s po every 4 - - 6 hours prn 08/17 Vitamin C CR Hx Tablets ER 1000mg 1 po qd Unknown /0000 - 01/19 Vitamin B-12 00 Hx Tablets ER 1000mcg 1 po qd Unknown CR /0000 - 12/17 Januvia Hx Tablets 100mg 30tab take 1 Tuyet /0000 s tablet by Varn, N.P. - mouth every Amoxicillin Hx Tablets 500mg 1 tab by Unknown /0000 mouth twice - a day times 12/30 Benzonatate Hx Capsules 100mg one by mouth Unknown /0000 three times - daily as 12/09 needed for cough Immunizations CPT Code Status Date Vaccine Lot # [id number] Given 10/04/2016 Tdap - Tetanus/Diptheria/Acellular Pertussis [id number] Given 01/20/2015 Flu Vaccine Split Virus Preservative Free For [id number] Indiv 3Yr Older [id number] Given 05/21/2012 Pneumonia Vaccine [id number] Vital Signs Date Vital Result Comment 02/14/2017 Weight 313.25 lb Heart Rate 86 /min BP Systolic 140 mmHg BP Diastolic 80 mmHg Body Temperature 95.6 F O2 % BldC Oximetry 98 % 11/29/2016 Weight 314.00 lb Heart Rate 82 /min BP Systolic 130 mmHg BP Diastolic 70 mmHg Body Temperature 97.4 F O2 % BldC Oximetry 98 % 11/11/2016 Height 62.5 inches 5'2.50" Weight 301.00 lb Heart Rate 88 /min BP Systolic 118 mmHg BP Diastolic 70 mmHg Body Temperature 97.7 F O2 % BldC Oximetry 98 % BMI (Body Mass Index) 54.2 kg/m2 10/31/2016 Height 62.5 inches 5'2.50" Weight 301.00 lb BP Systolic 130 mmHg BP Diastolic 74 mmHg Body Temperature 97.8 F BMI (Body Mass Index) 54.2 kg/m2 10/04/2016 Weight 307.50 lb Heart Rate 75 /min BP Systolic 104 mmHg BP Diastolic 60 mmHg Body Temperature 97.4 F O2 % BldC Oximetry 98 % 08/22/2016 Weight 306.00 lb Heart Rate 91 /min BP Systolic 116 mmHg BP Diastolic 74 mmHg Body Temperature 98.5 F O2 % BldC Oximetry 97 % 04/29/2016 Weight 288.00 lb Heart Rate 90 /min BP Systolic Sitting 138 mmHg BP Diastolic Sitting 72 mmHg Respiratory Rate 16 /min Body Temperature 98.4 F O2 % BldC Oximetry 98 % 03/02/2016 Weight 288.00 lb with shoes Heart Rate 94 /min BP Systolic Sitting 140 mmHg BP Diastolic Sitting 94 mmHg Body Temperature 97.9 F O2 % BldC Oximetry 98 % 12/31/2015 Weight 291.00 lb Heart Rate 88 /min BP Systolic Sitting 138 mmHg BP Diastolic Sitting 84 mmHg Respiratory Rate 15 /min Body Temperature 98.5 F O2 % BldC Oximetry 98 % 10/26/2015 Weight 299.50 lb Heart Rate 77 /min BP Systolic Sitting 133 mmHg BP Diastolic Sitting 77 mmHg Body Temperature 98.2 F O2 % BldC Oximetry 99 % 08/17/2015 Weight 296.00 lb with shoes Heart Rate 113 /min BP Systolic Sitting 130 mmHg BP Diastolic Sitting 70 mmHg Body Temperature 98.8 F O2 % BldC Oximetry 99 % 07/24/2015 Weight 293.00 lb Heart Rate 90 /min BP Systolic Sitting 140 mmHg BP Diastolic Sitting 90 mmHg Respiratory Rate 15 /min O2 % BldC Oximetry 98 % 06/11/2015 Weight 291.00 lb Heart Rate 78 /min BP Systolic Sitting 124 mmHg BP Diastolic Sitting 76 mmHg Body Temperature 98.2 F 04/22/2015 Height 61.5 inches 5'1.50" Weight 310.50 lb Heart Rate 77 /min BP Systolic Sitting 130 mmHg BP Diastolic Sitting 74 mmHg Body Temperature 97.5 F O2 % BldC Oximetry 98 % BMI (Body Mass Index) 57.7 kg/m2 01/20/2015 Height 61.5 inches 5'1.50" Weight 298.50 lb Heart Rate 79 /min BP Systolic Sitting 134 mmHg BP Diastolic Sitting 86 mmHg Body Temperature 96.8 F O2 % BldC Oximetry 98 % BMI (Body Mass Index) 55.5 kg/m2 12/17/2014 Height 61.5 inches 5'1.50" Weight 301.00 lb Heart Rate 99 /min BP Systolic 146 mmHg BP Diastolic 90 mmHg O2 % BldC Oximetry 99 % BMI (Body Mass Index) 55.9 kg/m2 05/09/2014 Weight 318.00 lb Heart Rate 78 /min BP Systolic Sitting 120 mmHg BP Diastolic Sitting 74 mmHg Body Temperature 97.7 F 09/12/2013 Weight 321.50 lb Heart Rate 84 /min BP Systolic Sitting 122 mmHg BP Diastolic Sitting 78 mmHg Body Temperature 97.8 F 08/30/2013 Weight 317.00 lb Heart Rate 88 /min BP Systolic Sitting 128 mmHg BP Diastolic Sitting 80 mmHg 05/03/2013 Weight 317.00 lb Heart Rate 87 /min BP Systolic Sitting 126 mmHg BP Diastolic Sitting 80 mmHg Respiratory Rate 18 /min Body Temperature 97.6 F O2 % BldC Oximetry 98 % 04/15/2013 Weight 321.00 lb Heart Rate 80 /min BP Systolic Sitting 124 mmHg BP Diastolic Sitting 82 mmHg Body Temperature 98.0 F O2 % BldC Oximetry 98 % 01/22/2013 Weight 318.00 lb Heart Rate 80 /min BP Systolic Sitting 130 mmHg BP Diastolic Sitting 84 mmHg Body Temperature 98.3 F 01/07/2013 Weight 328.00 lb Heart Rate 79 /min BP Systolic Sitting 130 mmHg BP Diastolic Sitting 80 mmHg Body Temperature 97.5 F O2 % BldC Oximetry 98 % 11/28/2012 Weight 316.00 lb Heart Rate 81 /min BP Systolic Sitting 112 mmHg BP Diastolic Sitting 80 mmHg Body Temperature 97.0 F 11/14/2012 Weight 315.00 lb Heart Rate 80 /min BP Systolic Sitting 124 mmHg BP Diastolic Sitting 80 mmHg 10/29/2012 Weight 319.00 lb Heart Rate 80 /min BP Systolic Sitting 124 mmHg BP Diastolic Sitting 78 mmHg 08/17/2012 Weight 321.00 lb Heart Rate 80 /min BP Systolic Sitting 128 mmHg BP Diastolic Sitting 84 mmHg 06/25/2012 Weight 324.00 lb Heart Rate 80 /min BP Systolic Sitting 122 mmHg BP Diastolic Sitting 84 mmHg 05/21/2012 Height 63 inches 5'3" Weight 330.00 lb Heart Rate 110 /min BP Systolic Sitting 140 mmHg BP Diastolic Sitting 80 mmHg Body Temperature 98.1 F O2 % BldC Oximetry 98 % BMI (Body Mass Index) 58.5 kg/m2 03/28/2012 Height 63 inches 5'3" Weight 326.00 lb Heart Rate 76 /min BP Systolic Sitting 130 mmHg BP Diastolic Sitting 80 mmHg BMI (Body Mass Index) 57.7 kg/m2 03/14/2012 Height 63 inches 5'3" Weight 326.00 lb Heart Rate 80 /min BP Systolic Standing 130 mmHg lg BP Diastolic Standing 80 mmHg lg BMI (Body Mass Index) 57.7 kg/m2 01/18/2012 Height 63 inches 5'3" Weight 321.00 lb Heart Rate 70 /min BP Systolic Sitting 126 mmHg BP Diastolic Sitting 82 mmHg BMI (Body Mass Index) 56.9 kg/m2 05/12/2011 Height 63 inches 5'3" Weight 330.00 lb Heart Rate 72 /min BP Systolic Sitting 138 mmHg l BP Diastolic Sitting 68 mmHg l BMI (Body Mass Index) 58.5 kg/m2 Results Test Date Test Result H/L Range Note CBC Auto Diff 02/11/2017 White Blood Count 12.2 10^3/uL High 3.5-10.8 Red Blood Count 4.82 10^6/uL 4.0-5.4 Hemoglobin 13.4 g/dL 12.0-16.0 Hematocrit 40 % 35-47 Mean Corpuscular Volume 83 fL 80-97 Mean Corpuscular Hemoglobin 28 pg 27-31 Mean Corpuscular HGB Conc 33 g/dL 31-36 Red Cell Distribution Width 14 % 10.5-15 Platelet Count 314 10^3/uL 150-450 Mean Platelet Volume 8 um3 7.4-10.4 Abs Neutrophils 7.4 10^3/uL 1.5-7.7 Abs Lymphocytes 3.4 10^3/uL 1.0-4.8 Abs Monocytes 0.7 10^3/uL 0-0.8 Abs Eosinophils 0.5 10^3/uL 0-0.6 Abs Basophils 0.1 10^3/uL 0-0.2 Abs Nucleated RBC 0.01 10^3/uL Granulocyte % 60.9 % 38-83 Lymphocyte % 28.0 % 25-47 Monocyte % 6.0 % 1-9 Eosinophil % 4.1 % 0-6 Basophil % 1.0 % 0-2 Nucleated Red Blood Cells % 0.1 Laboratory test 02/11/2017 D Dimer Quantitative 533 ng/mL High Less Than 230 1 finding Comp Metabolic Panel 02/11/2017 Sodium 132 mmol/L Low 133-145 Potassium 3.9 mmol/L 3.5-5.0 Chloride 98 mmol/L Low 101-111 Co2 Carbon Dioxide 26 mmol/L 22-32 Anion Gap 8 mmol/L 2-11 Glucose 313 mg/dL High 70-100 Blood Urea Nitrogen 20 mg/dL 6-24 Creatinine 0.86 mg/dL 0.51-0.95 BUN/Creatinine Ratio 23.3 High 8-20 Calcium 8.9 mg/dL 8.6-10.3 Total Protein 6.6 g/dL 6.4-8.9 Albumin 3.6 g/dL 3.2-5.2 Globulin 3.0 g/dL 2-4 Albumin/Globulin Ratio 1.2 1-3 Total Bilirubin 0.50 mg/dL 0.2-1.0 Alkaline Phosphatase 108 U/L High 34-104 Alt 19 U/L 7-52 Ast 14 U/L 13-39 Egfr Non- 74.2 >60 Egfr 95.5 >60 2 Laboratory test finding 02/11/2017 C Reactive Protein 24.63 mg/L High &lt ; 5.00 3 Urine Microalbumin Random 10/04/2016 Urine Creatinine 145.66 mg/dL 4 Ur Microalbumin (mg/L) < 15.0 mg/L 4 Urine Microalbumin/Creatinine TNP ug/mg <31 4, 5 Laboratory test 10/04/2016 Hemoglobin A1c 9.8 High 5-7 finding Laboratory test 08/22/2016 Hemoglobin A1c 11.3 High 5-7 finding Laboratory test 03/02/2016 HIV 1&2 AB Self Nonreactive Nonreactive 6 finding Referred Syphillis Igg W/Reflex RPR Nonreactive Nonreactive 7 GC/Chlamydia Amplified Rna 03/02/2016 Chlamydia trachomatis Rna Negative Negative 8 Neisseria gonorrhoeae (GC) Rna Negative Negative 8 Ua Routine 12/31/2015 Ua Specific [place] 1.005 Ua PH 6 Ua Color yellow Ua Appera clear Ua WBC neg Ua Protein neg Ua Glucose 1000+ Ua Ketones neg Ua Bilirubin neg Ua Urobilinogen neg Ua Nitrite neg Ua Occult Blood small Laboratory test finding 10/26/2015 Hemoglobin A1c 9.1 High 5-7 Laboratory test finding 07/24/2015 Hemoglobin A1c 10.6 High 5-7 Laboratory test finding 06/06/2015 Point of Care 320 mg/dL High 74-106 9 Glucose Urine Culture And 06/06/2015 Urine Culture SEE RESULT 10 Sensitivities BELOW Comp Metabolic Panel 06/06/2015 Sodium 131 mmol/L Low 133-145 Potassium 4.0 mmol/L 3.5-5.0 Chloride 101 mmol/L 101-111 Co2 Carbon Dioxide 23 mmol/L 22-32 Anion Gap 7 mmol/L 2-11 Glucose 343 mg/dL High 70-100 Blood Urea Nitrogen 18 mg/dL 6-24 Creatinine 0.90 mg/dL 0.51-0.95 BUN/Creatinine Ratio 20.0 8-20 Calcium 8.7 mg/dL 8.6-10.3 Total Protein 6.1 g/dL Low 6.4-8.9 Albumin 3.4 g/dL 3.2-5.2 Globulin 2.7 g/dL 2-4 Albumin/Globulin Ratio 1.3 1-3 Total Bilirubin 0.40 mg/dL 0.2-1.0 Alkaline Phosphatase 74 U/L 34-104 Alt 22 U/L 7-52 Ast 42 U/L High 13-39 Egfr Non- 71.3 >60 Egfr 91.6 >60 11 Urinalysis Profile 06/06/2015 Urine Color Yellow Urine Appearance Clear Urine Specific [place] 1.036 High 1.010-1.030 Urine pH 5.0 5-9 Urine Urobilinogen Negative Negative Urine Ketones Trace Negative Urine Protein Negative Negative Urine Leukocytes Negative Negative Urine Blood Negative Negative Urine Nitrite Negative Negative Urine Bilirubin Negative Negative Urine Glucose 3+(>=500 mg/dL) Negative CBC Auto Diff 06/06/2015 White Blood Count 16.3 10^3/uL High 3.5-10.8 Red Blood Count 5.44 10^6/uL High 4.0-5.4 Hemoglobin 15.5 g/dL 12.0-16.0 Hematocrit 46 % 35-47 Mean Corpuscular Volume 84 fL 80-97 Mean Corpuscular Hemoglobin 28 pg 27-31 Mean Corpuscular HGB Conc 34 g/dL 31-36 Red Cell Distribution Width 13 % 10.5-15 Platelet Count 327 10^3/uL 150-450 Mean Platelet Volume 8 um3 7.4-10.4 Abs Neutrophils 13.1 10^3/uL High 1.5-7.7 Abs Lymphocytes 2.0 10^3/uL 1.0-4.8 Abs Monocytes 0.8 10^3/uL 0-0.8 Abs Eosinophils 0.1 10^3/uL 0-0.6 Abs Basophils 0.3 10^3/uL High 0-0.2 Abs Nucleated RBC 0 10^3/uL Granulocyte % 80.5 % 38-83 Lymphocyte % 12.1 % Low 25-47 Monocyte % 5.0 % 1-9 Eosinophil % 0.8 % 0-6 Basophil % 1.6 % 0-2 Nucleated Red Blood Cells % 0 Laboratory test finding 04/22/2015 Hemoglobin A1c 9.6 High 5-7 GC/Chlamydia Amplified 01/20/2015 Chlamydia trachomatis Negative Negative Rna Rna Neisseria gonorrhoeae (GC) Rna Negative Negative 12 Laboratory test 01/20/2015 Hemoglobin A1c 12.0 High 5-7 finding Laboratory test 10/01/2014 Wound Culture/Sensi SEE RESULT BELOW 13, 14 finding Lipid Profile 06/11/2014 Triglycerides 318 mg/dL 15 (Trig/Chol/HDL) Cholesterol 211 mg/dL 16 HDL Cholesterol 44.2 mg/dL 17 LDL Cholesterol 103 mg/dL 18 Comp Metabolic Panel 06/11/2014 Sodium 136 mmol/L 133-145 Potassium 4.5 mmol/L 3.5-5.0 Chloride 103 mmol/L 101-111 Co2 Carbon Dioxide 27 mmol/L 22-32 Anion Gap 6 mmol/L 2-11 Glucose 324 mg/dL High 70-100 Blood Urea Nitrogen 12 mg/dL 6-24 Creatinine 0.61 mg/dL 0.51-0.95 BUN/Creatinine Ratio 19.7 8-20 Calcium 9.3 mg/dL 8.6-10.3 Total Protein 6.3 g/dL Low 6.4-8.9 Albumin 3.7 g/dL 3.2-5.2 Globulin 2.6 g/dL 2-4 Albumin/Globulin Ratio 1.4 1-3 Total Bilirubin 0.30 mg/dL 0.2-1.0 Alkaline Phosphatase 88 U/L 34-104 Alt 26 U/L 7-52 Ast 21 U/L 13-39 Egfr Non- 112.3 >60 Egfr 144.4 >60 19 Urine Microalbumin Random 06/11/2014 Ur Microalbumin (mg/L) 20.0 mg/L Urine Creatinine 75.70 mg/dL Urine Microalbumin/Creatinine 26.4 Less Than 31 Laboratory test finding 05/09/2014 Hemoglobin A1c 13.5 High 5-7 Laboratory test finding 08/30/2013 Hemoglobin A1c 11.1 High 5-7 Lipid Profile (Trig/Chol/HDL) 04/26/2013 Triglycerides 241 mg/dL 20 Cholesterol 187 mg/dL 21 HDL Cholesterol 37.2 mg/dL 22 LDL Cholesterol 102 mg/dL 23 Laboratory test finding 04/26/2013 Hemoglobin 14.4 g/dL 12.0-16.0 Hemoglobin A1c 10.2 % High Less than 6.0 24 Comp Metabolic Panel 04/26/2013 Sodium 138 mmol/L 133-145 Potassium 4.8 mmol/L 3.7-5.6 Chloride 104 mmol/L 101-111 Co2 Carbon Dioxide 27 mmol/L 22-32 Anion Gap 7 mmol/L 2-11 Glucose 250 mg/dL High 70-100 Blood Urea Nitrogen 15 mg/dL 6-24 Creatinine 0.70 mg/dL 0.51-0.95 BUN/Creatinine Ratio 21.4 High 8-20 Calcium 8.9 mg/dL 8.6-10.3 Total Protein 6.2 g/dL Low 6.4-8.9 Albumin 3.7 g/dL 3.2-5.2 Globulin 2.5 g/dL 2-4 Albumin/Globulin Ratio 1.5 1-3 Total Bilirubin 0.30 mg/dL 0.2-1.0 Alkaline Phosphatase 74 U/L 34-104 Alt 17 U/L 7-52 Ast 14 U/L 13-39 Egfr Non- 96.4 >60 Egfr 123.9 >60 25 Urine Microalbumin Random 04/26/2013 Ur Microalbumin (mg/L) 22.0 mg/dL & lt;30 26 Urine Creatinine 113.88 mg/dL Urine Microalbumin/Creatinine 19.3 Less Than 31 Rapid Influenza A B 03/06/2013 Rapid Influenza A B (SEE NOTE) 27 Antigen Antigen Laboratory test finding 11/14/2012 Vitamin B12 388 pg/mL 180-914 Vitamin D, 25 Hydroxy 11/14/2012 25-Hydroxy Vitamin D2 <4.0 ng/mL 25-Hydroxy Vitamin D3 32 ng/mL 25-Hydroxy Vitamin D Total 32 ng/mL 28 Laboratory test finding 11/14/2012 TSH (Thyroid Stimulating 2.04 miu/mL 0.34-5.60 Horm) Free T4 0.80 ng/mL 0.61-1.24 Laboratory test finding 11/14/2012 Hemoglobin A1c 8.6 High 5-7 Laboratory test finding 05/21/2012 Hemoglobin A1c 8.8 High 5-7 Lipid Profile (Trig/Chol/HDL) 03/28/2012 Triglycerides 156 mg/dL 40-200 Cholesterol 199 mg/dL Less than 200 HDL Cholesterol 43 mg/dL 40-60 29 Cholesterol/HDL Ratio 4.6 Average High 1-4.44 LDL Cholesterol 124.8 mg/dL High Less Than 100 30 Laboratory test finding 03/28/2012 Glucose 168 mg/dL High 70-100 Comp Metabolic Panel 03/28/2012 Sodium 138 mmol/L 133-145 Potassium 4.0 mmol/L 3.5-5.0 Chloride 102 mmol/L 101-111 Co2 Carbon Dioxide 28.0 mmol/L 22-32 Anion Gap 8.0 mmol/L 2-11 Blood Urea Nitrogen 15 mg/dL 6-24 Creatinine 0.70 mg/dL 0.50-1.40 BUN/Creatinine Ratio 21.4 High 8-20 Calcium 9.0 mg/dL 8.1-9.9 Total Protein 6.8 g/dL 6.2-8.1 Albumin 3.7 g/dL 3.6-5.4 Globulin 3.1 g/dL 2-4 Albumin/Globulin Ratio 1.2 1-3 Total Bilirubin 0.6 mg/dL 0.4-1.5 Alkaline Phosphatase 79 U/L 30-110 Alt 18 U/L 14-54 Ast 19 U/L 12-42 Egfr Non- 97.0 >60 Egfr 124.7 >60 31 Urine Microalbumin Random 03/28/2012 Ur Microalbumin (Mg/L) 6.0 mg/L 32 Urine Creatinine 132.6 mg/dL Urine Microalbumin/Creatinine 4.5 ug/mg Less Than 31 Laboratory test finding 03/14/2012 Hemoglobin A1c 8.9 High 5-7 Order 03/14/2012 peak flow x 3 275,300,300 CBC Auto Diff 02/22/2012 White Blood Count 12.7 10^3/uL High 4.8-10.8 Red Blood Count 4.84 10^6/uL 4.0-5.4 Hemoglobin 13.9 g/dL 12.0-16.0 Hematocrit 43 % 35-47 Mean Corpuscular Volume 89 fL 80-97 Mean Corpuscular Hemoglobin 29 pg 27-31 Mean Corpuscular HGB Conc 32 g/dL 31-36 Red Cell Distribution Width 14 % 10.5-15 Platelet Count 288 10^3/uL 150-450 Mean Platelet Volume 8 um3 7.4-10.4 Abs Neutrophils 8.2 10^3/uL High 1.5-7.7 Abs Lymphocytes 3.4 10^3/uL 1.0-4.8 Abs Monocytes 0.6 10^3/uL 0-0.8 Abs Eosinophils 0.3 10^3/uL 0-0.6 Abs Basophils 0.2 10^3/uL 0-0.2 Abs Nucleated RBC 0 10^3/uL Granulocyte % 64.5 % 38-83 Lymphocyte % 26.9 % 25-47 Monocyte % 4.9 % 1-9 Eosinophil % 2.2 % 0-6 Basophil % 1.5 % 0-2 Nucleated Red Blood Cells % 0 Comp Metabolic Panel 02/22/2012 Sodium 136 mmol/L 133-145 Potassium 4.1 mmol/L 3.5-5.0 Chloride 103 mmol/L 101-111 Co2 Carbon Dioxide 25.0 mmol/L 22-32 Anion Gap 8.0 mmol/L 2-11 Glucose 220 mg/dL High 70-100 Blood Urea Nitrogen 14 mg/dL 6-24 Creatinine 0.80 mg/dL 0.50-1.40 BUN/Creatinine Ratio 17.5 8-20 Calcium 8.4 mg/dL 8.1-9.9 Total Protein 6.4 g/dL 6.2-8.1 Albumin 3.5 g/dL Low 3.6-5.4 Globulin 2.9 g/dL 2-4 Albumin/Globulin Ratio 1.2 1-3 Total Bilirubin 0.5 mg/dL 0.4-1.5 Alkaline Phosphatase 73 U/L 30-110 Alt 20 U/L 14-54 Ast 22 U/L 12-42 Egfr Non- 83.1 >60 Egfr 106.9 >60 33 Rapid Influenza A B 02/22/2012 Rapid Influenza A B (SEE NOTE) 34 Antigen Antigen Laboratory test finding 05/12/2011 Hemoglobin A1c 7.3 High 5-7 1 Please note: The following may produce a false positive D Dimer test: - Rheumatoid factor greater than 60 IU/ml - Plasma hemoglobin greater than 0.05 gm/dl - Bilirubin greater than 50 mg/dl - Lipids greater than 1000 mg/dl - FDP greater than 20 ug/ml 2 Because ethnic data is not always readily available, this report includes an eGFR for both -Americans and non- Americans. The National Kidney Disease Education Program (NKDEP) does not endorse the use of the MDRD equation for patients that are not between the ages of 18 and 70, are , have extremes of body size, muscle mass, or nutritional status, or are non- or non-. According to the National Kidney Foundation, irrespective of diagnosis, the stage of the disease is based on the level of kidney function: Stage Description GFR(mL/min/1.73 m(2)) 1 Kidney damage with normal or decreased GFR 90 2 Kidney damage with mild decrease in GFR 60-89 3 Moderate decrease in GFR 30-59 4 Severe decrease in GFR 15-29 5 Kidney failure <15 (or dialysis) 3 Acute inflammation: >10.00 4 [id number] Unable to calculate due to low microalbumin 6 It is recognized that currently available assays for the detection of antibodies to HIV-1 and/or HIV-2 may not detect all infected individuals. HIV antibodies may be undetectable in some stages of the infection and in some clinical conditions. The performance of this assay has not been established for populations of infants or children. Assayed by Chemiluminescence Microparticle Immunoassay on the Siemens Advia Centaur CP. Values obtained with different methods or kits cannot be used interchangeably.The diagnostic specificity of the ADVIA Centaur 1/O/2 Enhanced assay in the low risk population was 99.90% (6052/6058) with a 95% confidence interval of 99.78 to 99.96%. 7 Warning: A positive result is not useful for establishing a diagnosis of syphilis. In most situations, such a result may reflect a prior treated infection; a negative result can exclude a diagnosis of syphilis except for incubating or early primary disease. 8 [id number] RYLEE JOHNSON to be notified Furnace Loader: [id number] CHUY STEPHEN 10 SEE RESULT BELOW Name: MARYA PINA I : [address]: Ana Jeffers MD Acct: [id number] Unit: [id number] AGE: 34 Location: ED Re06/06/15 SEX: F Status: DEP ER SPEC: [id number] LAMBERTO: 06/06/[address] [facility] [address]: Heidi Avery MD REQ: [id number] RECD: 06/06/15 STATUS: EDUARDO LANGFORD DR: [facility] Karla Rich MD _ SOURCE: URINE SPDESC: ORDERED: Urine Culture Procedure Result Reported Site Urine Culture Final 06/07/15- 1122 ML No growth of clinically significant organisms * ML - MAIN LAB ([facility]) . END OF REPORT * ML=Testing performed at Main Lab DEPARTMENT OF PATHOLOGY, [address] [place] [address] Reese Fu M.D. Director [facility] # [id number] 11 Because ethnic data is not always readily available, this report includes an eGFR for both -Americans and non- Americans. The National Kidney Disease Education Program (NKDEP) does not endorse the use of the MDRD equation for patients that are not between the ages of 18 and 70, are , have extremes of body size, muscle mass, or nutritional status, or are non- or non-. According to the National Kidney Foundation, irrespective of diagnosis, the stage of the disease is based on the level of kidney function: Stage Description GFR(mL/min/1.73 m(2)) 1 Kidney damage with normal or decreased GFR 90 2 Kidney damage with mild decrease in GFR 60-89 3 Moderate decrease in GFR 30-59 4 Severe decrease in GFR 15-29 5 Kidney failure <15 (or dialysis) 12 Female urine specimens have been self-validated by [facility] and have been granted conditional assay approval by [facility]. 13 Comment: right armpit abscess 14 SEE RESULT BELOW Name: MARYA PINA I : [address]: Ana Jeffers MD Acct: [id number] Unit: [id number] AGE: 34 Location: ED Re10/01/14 SEX: F Status: DEP ER SPEC: [id number] LAMBERTO: 10/01/14-[address]: Brian ELIZABETH REQ: [id number] RECD: 10/01/14 STATUS: EDUARDO LANGFORD DR: Ana Jeffers MD _ SOURCE: ALEXANDRE SHEFFIELD SPDC: ORDERED: Culture Stain COMMENTS: Comment: right armpit abscess Procedure Result Verified Site Wound/Misc Gram Stain Final 10/02/14- 0840 ML 4+ Neutrophils 3+ Gram Positive Cocci Wound/Misc Culture Final 10/03/14- 1001 ML Organism 1 STAPHYLOCOCCUS AUREUS Quantity 2+ 1. STAPHYLOCOCCUS AUREUS M.I.C. RX --------- ------ Penicillin >=0.5 R Clindamycin <=0.25 S Erythromycin <=0.25 S Gentamicin <=0.5 S Linezolid 2 S Nitrofurantoin <=16 S Oxacillin 0.5 S * Quinupristin/Dalfopristin <=0.25 S Rifampin <=0.5 S Tetracycline <=1 S Doxycycline - Deduced S * Minocycline - Deduced S Trimethoprim/Sulfamethoxazole <=10 S Vancomycin 1 S CONTINUED ON NEXT PAGE * ML=Testing performed at Main Lab DEPARTMENT OF PATHOLOGY, [address] [place] [address] Reese Fu M.D. Director [facility] # [id number] Patient: MARYA PINA I [id number] (Continued) Specimen: [id number] Collected: 10/01/14 Received: 10/01/14 (Continued) Procedure Result Verified Site Wound/Misc Culture Final (continued) 10/03/14- 100 1. STAPHYLOCOCCUS AUREUS (continued) M.I.C. RX --------- ------ Imipenem-Deduced S * Ampicillin/Sulbactam-Deduced S Cefazolin-Deduced S * These antibiotics are not available in the [facility] Formulary Contact the Microbiology Department for any additional antibiotic reporting. * ML - MAIN LAB ([facility]) . END OF REPORT * ML=Testing performed at Main Lab DEPARTMENT OF PATHOLOGY, [address] [place] [address] Reese Fu M.D. Director [facility] # [id number] 15 Desirable <150 Borderline high 150-199 High 200-499 Very High >500 16 Desirable <200 Borderline high 200-239 High >239 17 Low <40 Desirable: 40-60 High: >60 18 Desirable: <100 mg/dL Near Optimal: 100-129 mg/dL Borderline High: 130-159 mg/dL High: 160-189 mg/dL Very High: >189 mg/dL 19 Because ethnic data is not always readily available, this report includes an eGFR for both -Americans and non- Americans. The National Kidney Disease Education Program (NKDEP) does not endorse the use of the MDRD equation for patients that are not between the ages of 18 and 70, are , have extremes of body size, muscle mass, or nutritional status, or are non- or non-. According to the National Kidney Foundation, irrespective of diagnosis, the stage of the disease is based on the level of kidney function: Stage Description GFR(mL/min/1.73 m(2)) 1 Kidney damage with normal or decreased GFR 90 2 Kidney damage with mild decrease in GFR 60-89 3 Moderate decrease in GFR 30-59 4 Severe decrease in GFR 15-29 5 Kidney failure <15 (or dialysis) 20 Desirable <150 Borderline high 150-199 High 200-499 Very High >500 21 Desirable <200 Borderline high 200-239 High >239 22 Low <40 Desirable: 40-60 High: >60 23 Desirable <100 Near Optimal 100-129 Borderline high 130-159 High 160-189 Very High >189 24 Therapeutic target for the treatment of diabetes Mellitus patients is <7% HBA1C, and in selective patients <6.0%.Please refer to [place] [employer] Diabetic care guidelines for further information. 25 Because ethnic data is not always readily available, this report includes an eGFR for both -Americans and non- Americans. The National Kidney Disease Education Program (NKDEP) does not endorse the use of the MDRD equation for patients that are not between the ages of 18 and 70, are , have extremes of body size, muscle mass, or nutritional status, or are non- or non-. According to the National Kidney Foundation, irrespective of diagnosis, the stage of the disease is based on the level of kidney function: Stage Description GFR(mL/min/1.73 m(2)) 1 Kidney damage with normal or decreased GFR 90 2 Kidney damage with mild decrease in GFR 60-89 3 Moderate decrease in GFR 30-59 4 Severe decrease in GFR 15-29 5 Kidney failure <15 (or dialysis) 26 Microalbuminuria in a random sample is defined as: Microalbumin/Creatinine ratio of 30-299 ug/mg. 27 RUN DATE: 03/06/13 [facility] LIVE PAGE 1 RUN TIME: [address] [place] [id number] Specimen Inquiry Name: MARYA PINA I : [address]: Popeye Argueta DO Acct: [id number] Unit: [id number] AGE: 32 Location: ED Re03/06/13 SEX: F Status: REG ER SPEC: [id number] LAMBERTO: 03/06/13-[address]: Babs ARTHUR REQ: [id number] RECD: 03/06/13 STATUS: EDUARDO LANGFORD DR: Popeye Doan MD _ SOURCE: [facility]: ORDERED: Rapid Flu A B Procedure Result Verified Site Rapid Influenza A B Antigen Final 03/06/13- 1241 ML Organism 1 Negative Influenza A B Antigen testing by enzyme immunoassay. Cell culture testing can be performed to confirm negative test results and to assist in detecting other viruses that can produce similar clinical symptoms. Please notify Microbiology Lab if further testing is desired. END OF REPORT * ML=Testing performed at Main Lab DEPARTMENT OF PATHOLOGY, [address] [place] [address] Reese Fu M.D. Director [facility] Permit #[id number] 28 -- REFERENCE VALUE -- 25-HYDROXY D TOTAL (D2+D3) Optimum levels in the healthy population are 20-50, patients with bone disease may benefit from higher levels within this range. Test Performed by: [address] [address] Skull Grinder: Krish Mckinnon III, M.D. 29 HDL Interpretation: Undesirable: High Risk: Less than 40 MG/DL Desirable: Low Risk: Greater than 60 MG/DL 30 LDL Interpretation: Low Risk Optimal Level: LDL Less than 100 MG/DL Near or Above Optimal: LDL 100-129 MG/DL Borderline High Risk: LDL 130-159 MG/DL High Risk: LDL 160-189 MG/DL Very High Risk: LDL Greater than 189 MG/DL 31 Because ethnic data is not always readily available, this report includes an eGFR for both -Americans and non- Americans. The National Kidney Disease Education Program (NKDEP) does not endorse the use of the MDRD equation for patients that are not between the ages of 18 and 70, are , have extremes of body size, muscle mass, or nutritional status, or are non- or non-. According to the National Kidney Foundation, irrespective of diagnosis, the stage of the disease is based on the level of kidney function: Stage Description GFR(mL/min/1.73 m(2)) 1 Kidney damage with normal or decreased GFR 90 2 Kidney damage with mild decrease in GFR 60-89 3 Moderate decrease in GFR 30-59 4 Severe decrease in GFR 15-29 5 Kidney failure <15 (or dialysis) 32 Microalbuminuria in a random sample is defined as: Microalbumin/Creatinine ratio of 30-299 ug/mg. 33 Because ethnic data is not always readily available, this report includes an eGFR for both -Americans and non- Americans. The National Kidney Disease Education Program (NKDEP) does not endorse the use of the MDRD equation for patients that are not between the ages of 18 and 70, are , have extremes of body size, muscle mass, or nutritional status, or are non- or non-. According to the National Kidney Foundation, irrespective of diagnosis, the stage of the disease is based on the level of kidney function: Stage Description GFR(mL/min/1.73 m(2)) 1 Kidney damage with normal or decreased GFR 90 2 Kidney damage with mild decrease in GFR 60-89 3 Moderate decrease in GFR 30-59 4 Severe decrease in GFR 15-29 5 Kidney failure <15 (or dialysis) 34 RUN DATE: 02/22/12 [facility] LIVE PAGE 1 RUN TIME: 1631 [address] [facility], [place], [place] [address] Specimen Inquiry Name: MARYA PINA I : [address]: Sukumar Madera DO Acct: [id number] Unit: [id number] AGE: 31 Location: ED Re02/22/12 SEX: F Status: REG ER SPEC: [id number] LAMBERTO: 02/22/12-[address] [facility] [address]: Deepthi Corona RPA REQ: [id number] RECD: 02/22/12 STATUS: EDUARDO LANGFORD DR: Sukumar Madera DO, MD,[facility] _ SOURCE: [facility]: ORDERED: Rapid Flu A B Procedure Result Verified Site Rapid Influenza A B Antigen Final 02/22/12- 1631 ML Influenza A Antigen Negative by Enzyme Immunoassay Influenza B Antigen Negative by Enzyme Immunoassay Cell culture testing can be performed to confirm negative test results and to assist in detecting other viruses that can produce similar clinical symptoms. Please notify Microbiology Lab if further testing is desired. END OF REPORT * ML=Testing performed at Main Lab DEPARTMENT OF PATHOLOGY, [address] [place] [address] Reese Fu M.D. Director [facility] Permit #[id number] Procedures Date CPT Code Description Status 04/25/2016 Diabetic Retinal Eye Exam Completed 01/21/2015 Diabetic Retinal Eye Exam Completed 09/20/2012 01625 Polysomnography Sleep Staging 4+ Parameters Completed 03/28/2012 48295 Pulmonary Function><Bronchodilator Completed Encounters Type Date Location Provider CPT E/M Dx Office Visit 12/09/2016 11:40a [facility] Tuyet Alvarado, N.P. 12568 R05 - [place] R07.89 Office Visit 11/29/2016 10:20a [facility] Tuyet Alvarado, N.P. 75327 J45.41 - [place] E11.65 F17.218 Office Visit 11/11/2016 10:20a [facility] Tuyet Alvarado, N.P. 02635 J20.9 - [place] Office Visit 10/31/2016 10:30a [facility] Yennifer Naylor, 19419 G56.03 Of [place] G56.23 Office Visit 10/04/2016 1:00p [facility] Tuyet Alvarado, N.P. 47407 E11.65 - [place] J45.30 J30.9 M79.641 Z23 Office Visit 08/22/2016 2:00p [facility] Tuyet Alvarado, N.P. 16745 E11.65 - [place] J20.9 Office Visit 04/29/2016 1:00p [facility] Tuyet Alvarado, N.P. 44698 R19.7 - [place] J20.9 Office Visit 03/02/2016 11:20a [facility] Tuyet Alvarado, N.P. 86287 F43.23 - [place] B37.3 Z11.3 R19.7 Office Visit 12/31/2015 10:40a [facility] Tuyet Alvarado, N.P. 26635 J20.9 - [place] M54.89 Office Visit 10/26/2015 10:00a [facility] Tuyet Alvarado, N.P. 94763 Z79.4 - [place] E11.65 F17.210 H66.93 Office Visit 08/17/2015 11:40a [facility] Tuyet Alvarado, N.P. 97863 B37.0 - [place] J20.9 J45.901 Office Visit 07/24/2015 10:00a [facility] Tuyet Alvarado, N.P. 10652 J20.9 - [place] E11.65 Office Visit 06/11/2015 2:40p [facility] Wilfredo Patel, 50642 R10.13 - [place] M.D. Office Visit 04/22/2015 10:00a [facility] Tuyet Alvarado, N.P. 79672 E11.65 - [place] I80.02 J30.9 F17.210 Office Visit 01/20/2015 11:20a [facility] Tuyet Alvarado, N.P. 96596 Z11.3 - [place] E11.65 I10 F17.210 Z23 Office Visit 12/17/2014 11:20a [facility] Tuyet Alvarado, N.P. 43166 Z79.4 - [place] E11.65 J20.9 I10 L02.421 L02.422 F17.210 Office Visit 05/09/2014 1:00p [facility] Tuyet Alvarado, N.P. 59710 250.02 - [place] 401.1 305.1 311 493.90 477.9 110.1 466.0 493.92 V58.67 Office Visit 09/12/2013 10:30a [facility] Cassidy Lua, N.P. 55440 250.02 - [place] 278.01 Office Visit 08/30/2013 11:20a [facility] - Cristina Garcia M.D. 52413 250.02 [place] 382.9 477.9 Office Visit 05/03/2013 11:00a [facility] - Cristina Garcia M.D. 18966 250.02 [place] 381.4 278.01 305.1 327.23 Office Visit 04/15/2013 10:20a [facility] - Cristina Garcia M.D. 83254 493.90 [place] 466.0 381.4 250.02 Office Visit 01/22/2013 11:20a [facility] Tuyet Alvarado, N.P. 18752 466.0 - [place] 381.81 Office Visit 01/07/2013 9:40a [facility] Tuyet Alvarado N.P. 87362 466.0 - [place] 686.8 727.03 Office Visit 11/28/2012 11:00a [facility] - Cristina Garcia M.D. 93199 493.90 [place] Office Visit 11/14/2012 2:40p [facility] - Cristina Garcia M.D. 76924 250.02 [place] 278.01 311 782.0 Office Visit 10/29/2012 8:40a [facility] - Cristina Garcia M.D. 64036 278.01 [place] 729.5 250.02 311 Office Visit 08/17/2012 11:00a [facility] - Cristina Garcia M.D. 64438 305.1 [place] 278.01 729.5 Office Visit 07/18/2012 4:17p [facility] Emanuel [place], 32334 786.09 [facility] [place] Office Visit 06/25/2012 11:40a [facility] Cristina Garcia M.D. 91850 278.01 - [place] 305.1 250.02 Office Visit 05/21/2012 9:20a [facility] - Cristina Garcia M.D. 17907 250.02 [place] 493.90 305.1 278.01 401.1 307.49 382.9 V03.82 Office Visit 03/28/2012 1:40p [facility] - Cristina Garcia M.D. 63113 250.02 [place] 493.90 305.1 Office Visit 03/14/2012 2:20p [facility] - Cristina Garcia M.D. 89117 250.02 [place] 278.01 305.1 493.90 401.1 307.49 521.08 Office Visit 01/18/2012 9:40a [facility] Tuyte Alvarado, N.P. 15143 682.8 - [place] Office Visit 05/12/2011 9:30a [facility] Constance Larkin M.D. 14212 278.01 - [place] 477.9 250.02 305.1 Plan of Care 02/14/2017 - Karla Rich M.D.I82.819 Embolism and thrombosis of superficial vn unsp low extrmComments:Start on aspirin - 325 mg once daily Walking is fineStanding is going to be uncomfortable Call me ifthe redness and swelling spreads above the line I popeye on your legFollow up:Monday add on at 8: 00 AME11.65 Type 2 diabetes mellitus with hyperglycemiaNew Labs:Comp Metabolic PanelLipid Profile (Trig/Chol/HDL)Hemoglobin A1c (Glyco HGB)Comments:Please do fasting blood test
--- OUTSIDE RECORDS SUMMARY | 2017-03-03 15:04 | XMS REPORT ---
:1980 External Reference #:[id number] Author Organization [facility] Address [address] [address] Phone [phone] Care Team Providers Name Role Phone Karla Rich MD Primary Care Physician Unavailable Payers Type Date Identification Numbers Payment Provider Subscriber Commercial Effective: Policy Number: [id number] [facility] [facility] [id number] [address] [address] [place] [address] Medigap Part B Expires: 2016 Policy Number: [id number] Medicaid Marya Pina Group Name: 1 1 [address] PayID: [id number] [place] [address] Commercial Expires: 2016 Policy Number: Total Care/[place] MNG Marya Pina [id number] [facility] Group Name: [id number] [address] [address] PayID: [id number] [place] [address] Commercial Effective: 2009 Policy Number: Total Care/[place] MNG Marya Pina [id number] [facility] Expires: 2012 PayID: [id number] [address] [address] [place] [address] Problems Date Description Provider Status Onset: 05/12/2011 [...] Comments Marital Status Lives With Son 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 ht/Reversible Basaglar [...] Solution 0.5-2.5(3 180un 1 vial in J20.9 [place] Stout/[place] )mg/3ML its nebulizer Varn, N.P. rol Sulfate [...] I10 s every day Varn, N.P. Pen [place] 09/02 Active Misc 31G X 5 90uni [...] 08/31 x 7 Nystatin 08/16 Hx Suspension 212963Uqh 16oz 4 B37.0 t/ML milliliters Varn, N.P. [...] 10mg 30tab 5tabx s 2days,4 [place], - prnq3yytr M.D. 08/16 5xgdk6jywp, elzd7kgao,1t abxday. Azithromycin 07/23 Hx Tablets 250mg 6tabs [...] Hx Solution 0.03% 30ml instill 2 Unknown Stout /0000 sprays in - each nostril 03/28 [...] CPT Code Status Date Vaccine Lot # [id number] Given 10/04/2016 Tdap - Tetanus/Diptheria/Acellular Pertussis [id number] Given 01/20/2015 Flu Vaccine Split Virus Preservative Free For [id number] Indiv 3Yr Older [id number] Given 05/21/2012 Pneumonia Vaccine [id number] Vital Signs Date Vital Result Comment 02/14/2017 [...] Negative 8 Ua Routine 12/31/2015 Ua Specific Parrish 1.005 Ua PH 6 Ua Color yellow [...] Color Yellow Urine Appearance Clear Urine Specific Parrish 1.036 High 1.010-1.030 Urine pH 5.0 5-9 [...] (or dialysis) 3 Acute inflammation: >10.00 4 [id number] Unable to calculate due to low [...] for incubating or early primary disease. 8 [id number] RYLEE JOHNSON to be notified Water Filtration Technician: [id number] CHUY STEPHEN 10 SEE RESULT BELOW Name: MARYA PINA I : [address]: Ana Jeffers MD Acct: [id number] Unit: [id number] AGE: 34 Location: ED Re06/06/15 SEX: F Status: DEP ER SPEC: [id number] LAMBERTO: 06/06/[address] [facility] [address]: Heidi Avery MD REQ: [id number] RECD: 06/06/15 STATUS: EDUARDO LANGFORD DR: Damon Physicians Karla Rich MD _ SOURCE: URINE SPDESC: ORDERED: Urine Culture Procedure Result Reported Site Urine Culture Final 06/07/15- 1122 ML No growth of clinically significant organisms * ML - MAIN LAB ([facility]) . END OF REPORT * ML=Testing performed at Main Lab DEPARTMENT OF PATHOLOGY, [address] [place] [address] Reese Fu M.D. Director [facility] # [id number] 11 Because ethnic data is not always [...] Female urine specimens have been self-validated by [facility] and have been granted conditional assay approval by [facility]. 13 Comment: right armpit abscess 14 SEE RESULT BELOW Name: MARYA PINA I : [address]: Ana Jeffers MD Acct: [id number] Unit: [id number] AGE: 34 Location: ED Re10/01/14 SEX: F Status: DEP ER SPEC: [id number] LAMBERTO: 10/01/14-[address]: Brian ELIZABETH REQ: [id number] RECD: 10/01/14 STATUS: EDUARDO LANGFORD DR: Ana [...] performed at Main Lab DEPARTMENT OF PATHOLOGY, [address] [place] [address] Reese Fu M.D. Director EUGENIE # [id number] Patient: MARYA PINA I [id number] (Continued) Specimen: [id number] Collected: 10/01/14 Received: 10/01/14 (Continued) Procedure Result Verified Site Wound/Misc Culture Final (continued) 10/03/14- 100 1. STAPHYLOCOCCUS AUREUS (continued) M.I.C. RX --------- ------ Imipenem-Deduced S * Ampicillin/Sulbactam-Deduced S Cefazolin-Deduced S * These antibiotics are not available in the [facility] Contact the Microbiology Department for any additional antibiotic reporting. * ML - MAIN LAB ([facility]) . END OF REPORT * ML=Testing performed at Main Lab DEPARTMENT OF PATHOLOGY, [address] [place] [address] Resee Fu M.D. Director [facility] # [id number] 15 Desirable <150 Borderline high 150-199 High [...] and in selective patients <6.0%.Please refer to [place] [employer] Diabetic care guidelines for further [...] of 30-299 ug/mg. 27 RUN DATE: 03/06/13 [facility] LIVE PAGE 1 RUN TIME: [address] [place] [address] Specimen Inquiry Name: MARYA PINA I : [address]: Popeye Argueta DO Acct: [id number] Unit: [id number] AGE: 32 Location: ED Re03/06/13 SEX: F Status: REG ER SPEC: [id number] LAMBERTO: 03/06/13-[address]: Babs ARTHUR REQ: [id number] RECD: 03/06/13 STATUS: EDUARDO LANGFORD DR: Popeye Doan MD _ SOURCE: [facility]: ORDERED: Rapid Flu A B Procedure Result [...] performed at Main Lab DEPARTMENT OF PATHOLOGY, [address] [place] [address] Reese Fu M.D. Director [facility] Permit #[id number] 28 -- REFERENCE VALUE -- 25-HYDROXY D TOTAL (D2+D3) Optimum levels in the healthy population are 20-50, patients with bone disease may benefit from higher levels within this range. Test Performed by: [address] [address] Extruding Press Adjuster: Krish Mckinnon III, M.D. 29 HDL Interpretation: [...] <15 (or dialysis) 34 RUN DATE: 02/22/12 [facility] LIVE PAGE 1 RUN TIME: 1631 [address], [place], [place] [address] Specimen Inquiry Name: MARYA PINA I : [address]: Sukumar Madera DO Acct: [id number] Unit: [id number] AGE: 31 Location: ED Re02/22/12 SEX: F Status: REG ER SPEC: [id number] LAMBERTO: 02/22/12-[address] [facility] [address]: Deepthi Corona RPA REQ: [id number] RECD: 02/22/12 STATUS: EDUARDO LANGFORD DR: Sukumar Madera DO, MD,[facility] _ SOURCE: [facility]: ORDERED: Rapid Flu A B Procedure Result [...] performed at Main Lab DEPARTMENT OF PATHOLOGY, [address] [place] [address] Reese Fu M.D. Director [facility] Permit #[id number] Procedures Date CPT Code Description Status 04/25/2016 Diabetic Retinal Eye Exam Completed 01/21/2015 Diabetic Retinal Eye Exam Completed 09/20/2012 98028 Polysomnography Sleep Staging 4+ Parameters Completed 03/28/2012 24348 Pulmonary Function><Bronchodilator Completed Encounters Type Date Location Provider CPT E/M Dx Office Visit 12/09/2016 11:40a [facility] Internal Medicine Tuyet Alvarado, N.P. 65146 R05 - [place] R07.89 Office Visit 11/29/2016 10:20a [facility] Internal Medicine Tuyet Alvarado, N.P. 19844 J45.41 - [place] E11.65 F17.218 Office Visit 11/11/2016 10:20a [facility] Internal Medicine Tuyet Alvarado, N.P. 07055 J20.9 - [place] Office Visit 10/31/2016 10:30a [facility] Yennifer Naylor, 49774 G56.03 Of [place]a [place] G56.23 Office Visit 10/04/2016 1:00p [facility] Internal Medicine Tuyet Alvarado, N.P. 19706 E11.65 - [place] J45.30 J30.9 M79.641 Z23 Office Visit 08/22/2016 2:00p [facility] Internal Medicine Tuyet Alvarado, N.P. 09096 E11.65 - [place] J20.9 Office Visit 04/29/2016 1:00p [facility] Internal Medicine Tuyet Alvarado, N.P. 81281 R19.7 - [place] J20.9 Office Visit 03/02/2016 11:20a [facility] Internal Medicine Tuyet Alvarado, N.P. 07148 F43.23 - [place] B37.3 Z11.3 R19.7 Office Visit 12/31/2015 10:40a [facility] Internal Medicine Tuyet Alvarado, N.P. 25941 J20.9 - [place] M54.89 Office Visit 10/26/2015 10:00a [facility] Internal Medicine Tuyet Alvarado, N.P. 09526 Z79.4 - [place] E11.65 F17.210 H66.93 Office Visit 08/17/2015 11:40a [facility] Internal Medicine Tuyet Alvarado, N.P. 00933 B37.0 - [place] J20.9 J45.901 Office Visit 07/24/2015 10:00a [facility] Internal Medicine Tuyet Alvarado, N.P. 63403 J20.9 - [place] E11.65 Office Visit 06/11/2015 2:40p [facility] Internal Medicine Wilfredo Patel, 91482 R10.13 - [place] M.D. Office Visit 04/22/2015 10:00a [facility] Internal Medicine Tuyet Alvarado, N.P. 19259 E11.65 - [place] I80.02 J30.9 F17.210 Office Visit 01/20/2015 11:20a [facility] Internal Medicine Tuyet Alvarado, N.P. 40687 Z11.3 - [place] E11.65 I10 F17.210 Z23 Office Visit 12/17/2014 11:20a [facility] Internal Medicine Tuyet Alvarado, N.P. 34924 Z79.4 - [place] E11.65 J20.9 I10 L02.421 L02.422 F17.210 Office Visit 05/09/2014 1:00p [facility] Internal Medicine Tuyet Alvarado, N.P. 45910 250.02 - [place] 401.1 305.1 311 493.90 477.9 110.1 466.0 493.92 V58.67 Office Visit 09/12/2013 10:30a [facility] Internal Medicine Cassidy Lua, N.P. 59475 250.02 - [place] 278.01 Office Visit 08/30/2013 11:20a [facility] Internal Medicine - Cristina Garcia M.D. 05870 250.02 [place] 382.9 477.9 Office Visit 05/03/2013 11:00a [facility] Internal Medicine - Cristina Garcia M.D. 45994 250.02 [place] 381.4 278.01 305.1 327.23 Office Visit 04/15/2013 10:20a [facility] Internal Medicine - Cristina Garcia M.D. 10206 493.90 [place] 466.0 381.4 250.02 Office Visit 01/22/2013 11:20a [facility] Internal Medicine Tuyet Alvarado, N.P. 96269 466.0 - [place] 381.81 Office Visit 01/07/2013 9:40a [facility] Internal Medicine Tuyet Alvarado N.P. 77962 466.0 - [place] 686.8 727.03 Office Visit 11/28/2012 11:00a [facility] Internal Medicine - Cristina Garcia M.D. 06267 493.90 [place] Office Visit 11/14/2012 2:40p [facility] Internal Medicine - Cristina Garcia M.D. 59375 250.02 [place] 278.01 311 782.0 Office Visit 10/29/2012 8:40a [facility] Internal Medicine - Cristina Garcia M.D. 38073 278.01 [place] 729.5 250.02 311 Office Visit 08/17/2012 11:00a [facility] Internal Medicine - Cristina Garcia M.D. 21795 305.1 [place] 278.01 729.5 Office Visit 07/18/2012 4:17p [facility] Emanuel [place], 62182 786.09 [facility] [place] Office Visit 06/25/2012 11:40a [facility] Internal Medicine Cristina Garcia M.D. 48423 278.01 - [place] 305.1 250.02 Office Visit 05/21/2012 9:20a [facility] Internal Medicine - Cristina Garcia M.D. 61000 250.02 [place] 493.90 305.1 278.01 401.1 307.49 382.9 V03.82 Office Visit 03/28/2012 1:40p [facility] Internal Medicine - Cristina Garcia M.D. 70622 250.02 [place] 493.90 305.1 Office Visit 03/14/2012 2:20p [facility] Internal Medicine - Cristina Garcia M.D. 57156 250.02 [place] 278.01 305.1 493.90 401.1 307.49 521.08 Office Visit 01/18/2012 9:40a [facility] Internal Medicine Tuyet Alvarado, N.P. 80286 682.8 - [place] Office Visit 05/12/2011 9:30a [facility] Internal Medicine Constance Larkin M.D. 66471 278.01 - [place] 477.9 250.02 305.1 Plan of Care 02/14/2017 [...]
--- NOTE | 2017-03-03 15:57 | ED ---
Xander Mello Natalie, scribed for Avery Colorado MD on 03/03/17 at 1444 . Lower Extremity - HPI Summary HPI Summary: The pt is a 36 y/o F presenting to the ED c/o edema in BLE after waking up this morning. Starting in the beginning of February, she has had BLE blood clots and varicose veins, for which she was prescribed Xarelto. The pain is rated 3/10 in severity. The clots are described as red, hot to touch. Pt additionally c/o cold feet and hardness in BLE. Pt denies CP, SOB, erythema. She is a smoker. - History of Current Complaint Chief Complaint: EDExtremityLower Stated Complaint: BOTH LEGS SWOLLEN Time Seen by Provider: 03/03/17 14:29 Hx Obtained From: Patient Hx Last Menstrual Period: 11/29/16 Mechanism Of Injury: Other - previous history of BLE blood clots Onset/Duration: Worse Since - this morning Pain Intensity: 3 Pain Scale Used: 0-10 Numeric Associated Signs And Symptoms: Positive: Other - POSITIVE Aggravating Factor(s): Nothing Alleviating Factor(s): Nothing - Allergies/Home Medications Allergies/Adverse Reactions: Allergies Allergy/AdvReac Type Severity Reaction Status Date / Time Hydrocodone Allergy Rash Verified 03/03/17 14:31 Latex Allergy Itching Verified 03/03/17 14:31 PMH/Surg Hx/FS Hx/Imm Hx Previously Healthy: No Endocrine/Hematology History: Reports: Hx Diabetes - type 2 Denies: Hx Anticoagulant Therapy, Hx Thyroid Disease Cardiovascular History: Reports: Hx Hypertension Denies: Hx Pacemaker/ICD Respiratory History: Reports: Hx Asthma - uses nebulizer treatments PRN, Other Respiratory Problems/Disorders - allergic rhinits, smoker Denies: Hx Chronic Obstructive Pulmonary Disease (COPD) GI History: Reports: Hx Gall Bladder Disease - s/p cholecystectomy 2004 History: Denies: Hx Renal Disease Musculoskeletal History: Reports: Other Musculoskeletal History - H/o rib fx - no residual Sensory History: Denies: Hx Contacts or Glasses Opthamlomology History: Denies: Hx Contacts or Glasses Neurological History: Denies: Hx Dementia, Hx Seizures Psychiatric History: Reports: Hx Depression Denies: Hx Substance Abuse - Surgical History Surgery Procedure, Year, and Place: 1993 tonsils, 2003 , 2004 cholecystectomy, 2012 complete tooth extraction (uppers & lowers) Infectious Disease History: No Infectious Disease History: Denies: Hx Clostridium Difficile, Hx Hepatitis, Hx Human Immunodeficiency Virus (HIV), Hx of Known/Suspected MRSA, Hx Shingles, Hx Tuberculosis, Hx Known/ Suspected VRE, Hx Known/Suspected VRSA, History Other Infectious Disease, Traveled Outside the [place] in Last 30 Days - Family History Known Family History: Positive: Cardiac Disease, Other - Positive FMHx for URI Negative: Hypertension, Diabetes - Social History Alcohol Use: None Hx Substance Use: No Substance Use Type: Reports: None Hx Tobacco Use: Yes Smoking Status (MU): Heavy Every Day Tobacco Smoker Amount Used/How Often: 1 pack /day Review of Systems Negative: Chest Pain Negative: Shortness Of Breath Positive: Other - POSITIVE: cold feed, hardness in BLE; NEGATIVE: erythema All Other Systems Reviewed And Are Negative: Yes Physical Exam Triage Information Reviewed: Yes Vital Signs On Initial Exam: Initial Vitals Temp Pulse Resp BP Pulse Ox 98.2 F 74 18 141/74 100 03/03/17 14:30 03/03/17 14:30 03/03/17 14:30 03/03/17 14:30 03/03/17 14:30 Vital Signs Reviewed: Yes Appearance: Positive: No Pain Distress, Obese Skin: Positive: Warm, Skin Color Reflects Adequate Perfusion, Dry Head/Face: Positive: Normal Head/Face Inspection Eyes: Positive: EOMI, JANY ENT: Positive: Normal ENT inspection Neck: Positive: Supple, Nontender Respiratory/Lung Sounds: Positive: Clear to Auscultation, Breath Sounds Present Cardiovascular: Positive: RRR, Pulses are Symmetrical in both Upper and Lower Extremities Abdomen Description: Positive: Nontender, Soft Bowel Sounds: Positive: Present Musculoskeletal: Positive: Other - discolored palpable cord to anterior thigh which does not extend to proximal thigh, no edema to lower extremeties, no tenderness to palpitation Neurological: Positive: Normal, Sensory/Motor Intact, Alert, Oriented to Person Place, Time - Nedra Coma Scale Coma Scale Total: 15 Diagnostics - Vital Signs Vital Signs Temp Pulse Resp BP Pulse Ox 03/03/17 14:30 98.2 F 74 18 141/74 100 - Laboratory Lab Statement: Any lab studies that have been ordered have been reviewed, and results considered in the medical decision making process. - Additional Comments Diagnostic Additional Comments: reviewed last 2 vasc US both done this month. +SVT only, involves only superficial branches of the saphenous. Lower Extremity Course/Dx - Course Course Of Treatment: pt referred here for reeval of possbile enlarging blood clot. This pt has had 2 similar US this month, neither demonstrating a DVT. She is on Xarelto regardless. She has palp cord which stops in the mid thigh. Will add keflex, warm compresses and compression socks. - Diagnoses Provider Diagnoses: Bilateral lower extremity pain, superficial venous thrombosis Discharge - Discharge Plan Condition: Good Disposition: HOME Prescriptions: Cephalexin CAP* [Keflex CAP*] 500 mg PO TID #30 cap Patient Education Materials: Varicose Veins (ED) Referrals: Tuyet Alvarado NP [Primary Care Provider] - Additional Instructions: there is no deep venous thrombosis. Use warm compresses, compression socks/ stockings, massage to the area. Your doctor will likely stop blood thinner quickly. Ibuprofen for discomfort. Return if worse, new symptoms or other concerns. The documentation as recorded by the Xander hensley Natalie accurately reflects the service I personally performed and the decisions made by me, Avery [place] MD.
== END 2017-03-03 15:00 | disposition home or self-care (01) ==
LOC: ED 14:23
DX: I82.813 Embolism and thrombosis of superficial veins of lower extremities, bilateral (principal); F17.200 Nicotine dependence, unspecified, uncomplicated; Z79.01 Long term (current) use of anticoagulants; Z88.5 Allergy status to narcotic agent
CPT/HCPCS: 99282

== ENCOUNTER 2017-06-03 13:51 | Emergency (ER) | payer OTHER ==
[2017-06-03 15:46] VITALS: BP 155/89
--- OUTSIDE RECORDS SUMMARY | 2017-06-03 15:46 | XMS REPORT ---
:1980 External Reference #:[id number] Author Organization [facility] Address [address] [address] Phone [phone] Care Team Providers Name Role Phone Karla Rich MD Primary Care Physician Unavailable Payers Type Date Identification Numbers Payment Provider Subscriber Commercial Effective: Policy Number: [id number] Castellano/[employer] Marya Bates Silvana 2016 Medicaid PayID: [id number] [address] [address] [place] [address] Medigap Part B Expires: 2016 Policy Number: [id number] Medicaid Marya Pina Group Name: 1 1 [address] PayID: [id number] [place] [address] Commercial Expires: 2016 Policy Number: Gray/[employer]care Marya Pina [id number] Medicaid Group Name: [id number] [address] [address] PayID: [id number] [place] [address] Commercial Effective: Policy Number: Gray/[employer] Marya Bates Silvana 2009 [id number] Medicaid Expires: 2012 PayID: [id number] [address] [address] [place] [address] Problems Date Description Provider Status Onset: 05/12/2011 Type II diabetes mellitus Constance Larkin M.D. Active uncontrolled Onset: 05/12/2011 Allergic rhinitis Constance Larkin M.D. Active Onset: 05/12/2011 Morbid obesity Constance Larkin M.D. Active Onset: 05/12/2011 Tobacco user Constance Larkin M.D. Active Onset: 03/14/2012 Benign essential hypertension Cristina Garcia M.D. Active Onset: 03/06/2012 Sleep apnea Karla Rich M.D. Active Onset: 02/21/2017 Asthma Karla Rich M.D. Active Onset: 02/21/2017 Superficial thrombophlebitis Karla Rich M.D. 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 Has tried quitting with patches which caused allergic contact dermatitis Allergies, Adverse Reactions, Alerts Date Description Reaction Status Severity Comments 05/21/2012 Hydrocodone Pt states she itch all over. active 08/17/2015 Latex active 05/12/2011 NKDA inactive Medications Medication Date Status Form Strength Qnty SIG Indications Ordering Provider Doxycycline 05/22 Hx Capsules 100mg 20cap one tablet J01.90 Shane Hyclate /2017 s twice daily LORI Anderson - for 10 days. 06/01 Xarelto 04/04 Active Tablets 15mg 28tab 1 by mouth I82.819 s every day Bereket Rich Omeprazole 03/[address] 20mg 30cap 1 by mouth R10.13 s every day Varn, N.P. Diclofenac 01/11 Active Solution 1.5% 150ml apply 5-10 Sodium drops to Varn, N.P. affected area, 3-4 times a day Diclofenac 01/09 Active Gel 1% 100gm Apply 4 Gms Tuyet Sodium qid prn for Varn, N.P. pain Lidocaine 12/23 Active Ointment 5% 35uni apply ts externally Varn, N.P. as needed once daily Doxepin HCL 10/20 Active Cream 5% 135gm Apply 2 - [...] Freestyle Lite 10/19 Active 300un 2 times Lanc its daily or as Varn, N.P. needed dx e11.9 Freestyle 10/19 Active Misc 300un test up to 2 Lanc its times a day Varn, N.P. or as needed Splint Wrist 10/04 Active Misc 1unit Wear this at M79.641 Brace/Left-Rig s night Varn, N.P. ht/Reversible Basaglar 09/20 Active Solution 100Unit/M 30ml 78 units sc E11.65 Pen-Inject L daily in Am Julio Rich. Metformin HCL 07/14 Active Tablets ER 500mg 120ta 4 by mouth E11.65 ER 24HR bs with dinner Varn, N.P. Fluconazole 05/27 Active Tablets 150mg 2tabs one by mouth July repeat Varn, N.P. in 3 days as needed Simethicone 04/29 Active Capsules 180mg 30cap 1 by mouth R19.7 s after each Varn, N.P. meal Fluoxetine HCL 03/02 Active Tablets 20mg 30tab take 1 F43.23 s tablet by Varn, N.P. mouth every day Ventolin HFA 02/14 Active Aerosol 108(90Bas 18uni 2 puffs by e) ts mouth four Cotton, mcg/Act times a day M.D. as needed Freestyle Lite 12/28 Active Device 1unit check E11.65 Blood Glucose s fingerstick Varn, N.P. Monitoring three times System daily or as needed, DX - E11.65 Januvia 10/11 Active Tablets 100mg 30tab 1 by mouth E11.65 s every day Varn, N.P. Ipratropium 08/16 Active Solution 0.5-2.5(3 180un 1 vial in J20.9 Shane [place] )mg/3ML its nebulizer LORI Anderson rol Sulfate three times a day as needed for asthma Nebulizer 08/16 Active Device 1unit use three J20.9 s times a day Varn, N.P. as needed Senna Laxative 06/06 Active Tablets 25mg 15tab 1 tab by K59.00 Noemy s mouth 1-2 MD Graeme times as needed Compression 04/22 Active Misc 2unit knee high I80.02 Tuyet Stockings s stockings 20 Varn, N.P. - 30 mm Cetirizine HCL 04/22 Active Tablets 10mg 30tab 1 by mouth J30.9 s every day Varn, N.P. Ramipril 12/17 Active Capsules 5mg 30cap 1 by mouth I10 s every day Varn, N.P. Pen Mohall 09/02 Active Misc 31G X 5 90uni use with Tuyet 05/19" mm ts insulin pen Varn, N.P. subq everyday Fluticasone 04/25 Active Suspension 50mcg/Act 16gm 1 spray each nostril Cotton, daily as M.D. needed Nebulizer 11/28 Active Kit J45.909 Cristina Compressor/Sean /2012 sagar Garciailter/7' M.D. Tubing/Aerosol T/Mthpiece Freestyle Lite 04/12 Active 100un use as Cristina Test Strip /2012 its directed Radha, every day or M.D. as needed dx: 250.02 Methocarbamol Active Tablets 1 by mouth Unknown /0000 twice a day as needed for spasm Prednisone 04/13 Hx Tablets 10mg 40tab 4 tablets by J20.9 s mouth for 4 Varn, N.P. - days 3 04/29 tablets by /2017 mouth for 4 days 2 tablets by mouth for 4 days 1 tablet by mouth for 4 days Levaquin 04/13 Hx Tablets 500mg 10tab 1 by mouth J20.9 s daily for 10 Varn, N.P. - days 04/23 Augmentin 03/30 Hx Tablets 875-125mg 20tab 1 tablet by J01.90 Shane s mouth q12 Monica, [facility] - hours for Xarelto 02/17 Hx Tablets 10mg 30tab 1 by mouth I82.819 s every day, Hilario, - take with M.D. 04/04 evening meal Xarelto 02/13 Hx Tablets 15mg 30tab (Not s Taking)1 by Cotton, - mouth every M.D. Aspirin 02/13 Hx Tablets 325mg 30tab 1 by mouth s every day Cotton, - M.D. 02/17 Ibuprofen 12/23 Hx Tablets 800mg 90tab by mouth I80.02 s three times Varn, N.P. - a day as 04/26 needed Diclofenac 12/23 Hx Gel 3% 100gm Apply [...] 2.5-2.5% 30gm apply 10 gm Tuyet ocaine-Cream /2016 every 3 Varn, N.P. Base - hours as 12/23 needed pain Prednisone 11/11 Hx Tablets 10mg 40tab [...] 10/04 Hx Aerosol 180mcg/Ac 1unit 2 puffs Flexhaler t s twice daily Varn, N.P. - 11/11 Doxycycline 09/29 Hx Tablets 100mg 20tab 1 tablet by Tuyet Hyclate /2016 s mouth bid x Varn, N.P. - [...] 08/31 x 7 Nystatin 08/16 Hx Suspension [id number] 16oz 4 B37.0 t/ML milliliters Varn, N.P. [...] 10mg 30tab 5tabx s 2days,4 Pachikara, - [id number] M.D. 08/16 [id number], isyl2advs,1t abxday. Azithromycin 07/23 Hx Tablets 250mg 6tabs two tabs day J20.9 one, one Varn, N.P. - daily till 08/02 Benzonatate 07/23 Hx Capsules 200mg 30cap one by mouth J20.9 s three times Varn, N.P. - daily as 09/07 needed cough Nexium 06/[address] 20mg 30cap 1 by mouth R10.13 s every day Varn, N.P. - 03/21 Nicotine Mini 06/14 Hx Lozenges 2mg 81uni [...] Solution 100Unit/M 45ml Use 22 units J20.9 Pen-Inject L daily Varn, N.P. - 01/19 Chantix 12/17 Hx Tablets 0.5mg X 1tabs take as Z72.0 Whitecone Starting 11 & directed Varn, N.P. Charlie - 1 mg X 42 (0.5 mg by 01/19 mouth daily /2014 x3 days, 0.5 mg twice a day [...] Varn, N.P. - daily as 05/19 needed for cough Amoxicillin 08/30 Hx Tablets 500mg 14tab 1 by mouth 382.9 s twice a day Radha, - M.D. 09/06 Lantus 08/30 Hx Solution 100Unit/M 15ml inject 66 E11.65 Tuyet Solostar Pen-Inject L units sc Varn, N.P. - once daily 02/21 Metformin HCL 08/30 Hx Tablets ER 1000mg 60tab take 2 E11.65 Tuyet ER (Osm) 24HR s tablets once Varn, N.P. - daily 07/14 Amoxicillin/Cl 05/03 Hx Tablets 500-125mg 14tab take 1 381.4 Cristina avulanate s tablet twice Radha, Potassium - daily until M.D. 08/30 Chantix 05/03 Hx Tablets 0.5mg X QS take as 305.1 Cristina Starting 11 & directed Charlie Garcai - 1 mg X 42 M.D. 05/09 Azithromycin 04/15 Hx Tablets 250mg 6tabs two tabs day 381.4 richar mcqueen, - daily till M.D. 05/03 Prednisone 01/22 Hx Tablets 5mg 40tab as directed 466.0 s Varn, N.P. - 04/15 Fluticasone 01/22 Hx Suspension 50mcg/Act 16gm 2 sprays 381.81 each nostril Varn, N.P. - daily as 02/21 needed Azithromycin 11/28 Hx Tablets 250mg 6tabs two tabs day 493.90 richar mcqueen, - daily till M.D. 01/07 Gabapentin 10/29 Hx Capsules 300mg 90cap 1-2 capsules 729.5 s by mouth Rebekah Garcia three times M.D. 04/15 daily /2013 Escitalopram 10/29 Hx Tablets 10mg 60tab take 10mg 311 Cristina Oxalate s daily x 7 Rebekah Garcia and M.D. 10/29 increase to 20mg daily Escitalopram 10/29 Hx Tablets 20mg 30tab Take 1 311 Tuyet Oxalate s Tablet By Varn, N.P. - Mouth Every 05/09 Day /2014 Nicotrol 08/17 Hx Inhaler 10mg 168un inhale 1 305.1 Cristina Inhaler /2012 its cartridge Rebekah Garcia inhaled M.D. 05/03 orally repeatedly like a cigarette 7 times per day as needed for smoking cessation Chantix 06/25 Hx Tablets 1mg 60tab take one 305.1 Cristina Continuing s tablet by Jv Garcia Charlie - mouth twice M.D. 08/17 a day /2012 Advair Diskus 05/21 Hx Aerosol 250-50mcg 14uni 1 puff by J45.909 Tuyet /Dose ts mouth twice Varn, N.P. - [...] Lite 04/12 Hx 100un once daily Cristina Lancets its or as needed Rebekah Garcia M.D. 10/19 Augmentin 04/06 Hx Tablets 500-125mg 20tab Take 1 s tablet by Radha - mouth every M.D. 05/21 12 hours /2012 Acetaminophen/ 04/06 Hx Tablets 300-30mg 30tab 1 tab po 521.08 Cristina Codeine #3 s every 4-6 Garcia, - hours as M.D. 05/21 needed for pain Clindamycin 04/04 Hx Capsules 300mg 60cap take 2 Cristina HCL s capsules by Radha, - mouth every M.D. 04/06 8 hours for 10 days Metformin HCL 03/28 Hx Tablets 500mg 60tab 1 po bid 250.02 Cristina s Radha, - M.D. 05/21 Nicorette 03/28 Hx Gum [...] Suspension 50mcg/Act 1unit 1 squirt 477.9 Constance /2011 s intranasal Chaya, - every day M.D. 03/28 Metformin HCL 05/11 Hx Tablets 1000mg 180ta 1 po bid 250.02 bs Rebekah Garcia M.DJessica 08/30 Loratadine Hx Tablets 10mg 1 po qd Unknown /0000 - 03/28 Sertraline HCL Hx Tablets 50mg 90tab 1 po qd Unknown / s - 03/28 Metformin HCL Hx Tablets ER 500mg 30tab 1 po qd Unknown ER /0000 24HR s - 03/14 Lisinopril Hx Tablets 5mg 30tab 1 po qd Cristina / s Rebekah Garcia M.D. 08/30 Albuterol Hx Aerosol 90mcg/Act 3unit 2 puffs po 493.90 Cristina / s qid prn Rebekah Garcia M.D. 05/21 Ipratropium Hx Solution 0.03% 30ml instill 2 Unknown [place] /0000 sprays in - each nostril 03/28 twice a day /2012 Nasonex Hx Suspension 50mcg/Act 1unit 2 sprays to Unknown /0000 s each nostril - twice daily 05/15 Ibuprofen Hx Tablets 800mg 30tab by mouth Cristina /0000 s three times Radha, - a day as M.DJessica 09/12 needed Albuterol Hx Nebulizer (2.5mg/3M 100un 1 vial via Tuyet Sulfate /0000 L) 0.083% its nebulizer 4 Varn, N.P. - times daily 11/29 as needed Hydrocodone/Ac Hx Tablets 5-500mg 30tab one or two Unknown etaminophen /0000 s po every 4 - - 6 hours prn 08/17 pain Vitamin C CR Hx Tablets ER 1000mg 1 po qd Unknown /0000 - 01/19 Vitamin B-12 Hx Tablets ER 1000mcg 1 po qd Unknown CR /0000 - 12/17 Januvia Hx Tablets 100mg 30tab take 1 Tuyet /0000 s tablet by Varn, N.P. - mouth every Amoxicillin Hx Tablets 500mg 1 tab by Unknown /0000 mouth twice - a day times 12/30 Benzonatate Hx Capsules 100mg one by mouth Unknown /0000 three times - daily as 12/09 needed for /2016 cough Immunizations CPT Code Status Date Vaccine Lot # [id number] Given 10/04/2016 Tdap - Tetanus/Diptheria/Acellular Pertussis [id number] Given 01/20/2015 Flu Vaccine Split Virus Preservative Free For [id number] Indiv [id number] Older [id number] Given 05/21/2012 Pneumonia Vaccine [id number] Vital Signs Date Vital Result Comment 05/22/2017 Weight 313.50 lb Heart Rate 83 /min BP Systolic 118 mmHg BP Diastolic 64 mmHg Body Temperature 98.4 F O2 % BldC Oximetry 98 % 04/13/2017 Weight 318.75 lb Heart Rate 84 /min BP Systolic 96 mmHg BP Diastolic 62 mmHg Body Temperature 98.3 F O2 % BldC Oximetry 97 % 03/30/2017 Weight 312.00 lb Heart Rate 72 /min BP Systolic 132 mmHg BP Diastolic 70 mmHg Body Temperature 97.5 F O2 % BldC Oximetry 98 % 02/21/2017 Height 61.5 inches 5'1.50" Weight 312.00 lb Heart Rate 79 /min BP Systolic Sitting 120 mmHg BP Diastolic Sitting 84 mmHg Body Temperature 97.0 F O2 % BldC Oximetry 97 % BMI (Body Mass Index) 58.0 kg/m2 02/14/2017 Weight 313.25 lb Heart Rate 86 [...] Test Date Test Result H/L Range Note Rapid Influenza A & 04/13/2017 Influenza A Molecular NEGATIVE Negative 1 B Molecular Influenza B Molecular NEGATIVE Negative Laboratory test 04/13/2017 Rapid Influenza A B SEE RESULT 2, 3 finding Antigen BELOW Laboratory test 02/21/2017 Cytology SEE RESULT 4, 5 finding BELOW Laboratory test 02/21/2017 Hemoglobin A1c 12.9 High 5-7 finding CBC Auto Diff 02/11/2017 White Blood Count [...] Quantitative 533 ng/mL High Less Than 230 6 finding Comp Metabolic Panel 02/11/2017 Sodium 132 [...] Egfr Non- 74.2 >60 Egfr 95.5 >60 7 Laboratory test finding 02/11/2017 C Reactive Protein 24.63 mg/L High &lt ; 5.00 8 Urine Microalbumin Random 10/04/2016 Urine Creatinine 145.66 mg/dL 9 Ur Microalbumin (mg/L) < 15.0 mg/L 9 Urine Microalbumin/Creatinine TNP ug/mg <31 9, 10 Laboratory test 10/04/2016 Hemoglobin A1c 9.8 High 5-7 finding Laboratory test 08/22/2016 Hemoglobin A1c 11.3 High 5-7 finding Laboratory test 03/02/2016 HIV 1&2 AB Self Nonreactive Nonreactive 11 finding Referred Syphillis Igg W/Reflex RPR Nonreactive Nonreactive 12 GC/Chlamydia Amplified Rna 03/02/2016 Chlamydia trachomatis Negative Negative 13 Rna Neisseria gonorrhoeae (GC) Rna Negative Negative 13 Ua Routine 12/31/2015 Ua Specific [place] 1.005 Ua PH 6 Ua Color yellow [...] Point of Care 320 mg/dL High 74-106 14 Glucose Urine Culture And 06/06/2015 Urine Culture SEE RESULT 15 Sensitivities BELOW Comp Metabolic Panel 06/06/2015 Sodium [...] Egfr Non- 71.3 >60 Egfr 91.6 >60 16 Urinalysis Profile 06/06/2015 Urine Color Yellow Urine Appearance Clear Urine Specific [place] 1.036 High 1.010-1.030 Urine pH 5.0 5-9 [...] Rna Neisseria gonorrhoeae (GC) Rna Negative Negative 17 Laboratory test 01/20/2015 Hemoglobin A1c 12.0 High 5-7 finding Laboratory test 10/01/2014 Wound Culture/Sensi SEE RESULT BELOW 18, 19 finding Lipid Profile 06/11/2014 Triglycerides 318 mg/dL 20 (Trig/Chol/HDL) Cholesterol 211 mg/dL 21 HDL Cholesterol 44.2 mg/dL 22 LDL Cholesterol 103 mg/dL 23 Comp Metabolic Panel 06/11/2014 Sodium 136 mmol/L [...] Egfr Non- 112.3 >60 Egfr 144.4 >60 24 Urine Microalbumin Random 06/11/2014 Ur Microalbumin (mg/L) 20.0 mg/L Urine Creatinine 75.70 mg/dL Urine Microalbumin/Creatinine 26.4 Less Than 31 Laboratory test finding 05/09/2014 Hemoglobin A1c 13.5 High 5-7 Laboratory test finding 08/30/2013 Hemoglobin A1c 11.1 High 5-7 Lipid Profile (Trig/Chol/HDL) 04/26/2013 Triglycerides 241 mg/dL 25 Cholesterol 187 mg/dL 26 HDL Cholesterol 37.2 mg/dL 27 LDL Cholesterol 102 mg/dL 28 Laboratory test finding 04/26/2013 Hemoglobin 14.4 g/dL 12.0-16.0 Hemoglobin A1c 10.2 % High Less than 6.0 29 Comp Metabolic Panel 04/26/2013 Sodium 138 mmol/L [...] Egfr Non- 96.4 >60 Egfr 123.9 >60 30 Urine Microalbumin Random 04/26/2013 Ur Microalbumin (mg/L) 22.0 mg/dL & lt;30 31 Urine Creatinine 113.88 mg/dL Urine Microalbumin/Creatinine 19.3 Less Than 31 Rapid Influenza A B 03/06/2013 Rapid Influenza A B (SEE NOTE) 32 Antigen Antigen Laboratory test finding 11/14/2012 Vitamin B12 388 pg/mL 180-914 Vitamin D, 25 Hydroxy 11/14/2012 25-Hydroxy Vitamin D2 <4.0 ng/mL 25-Hydroxy Vitamin D3 32 ng/mL 25-Hydroxy Vitamin D Total 32 ng/mL 33 Laboratory test finding 11/14/2012 TSH (Thyroid Stimulating 2.04 miu/mL 0.34-5.60 Horm) Free T4 0.80 ng/mL 0.61-1.24 Laboratory test finding 11/14/2012 Hemoglobin A1c 8.6 High 5-7 Laboratory test finding 05/21/2012 Hemoglobin A1c 8.8 High 5-7 Lipid Profile (Trig/Chol/HDL) 03/28/2012 Triglycerides 156 mg/dL 40-200 Cholesterol 199 mg/dL Less than 200 HDL Cholesterol 43 mg/dL 40-60 34 Cholesterol/HDL Ratio 4.6 Average High 1-4.44 LDL Cholesterol 124.8 mg/dL High Less Than 100 35 Laboratory test finding 03/28/2012 Glucose 168 mg/dL [...] Egfr Non- 97.0 >60 Egfr 124.7 >60 36 Urine Microalbumin Random 03/28/2012 Ur Microalbumin (Mg/L) 6.0 mg/L 37 Urine Creatinine 132.6 mg/dL Urine Microalbumin/Creatinine 4.5 [...] Egfr Non- 83.1 >60 Egfr 106.9 >60 38 Rapid Influenza A B 02/22/2012 Rapid Influenza A B (SEE NOTE) 39 Antigen Antigen Laboratory test finding 05/12/2011 Hemoglobin A1c 7.3 High 5-7 1 Burn Out Tender Lace: [id number] SEE RESULT BELOW Name: SILVANAANNYFN Bates : [address]: Tuyet Alvarado NP Acct: [id number] Unit: [id number] AGE: 36 Location: [facility] Re04/13/17 SEX: F Status: REG REF SPEC: [id number] LAMBERTO: 04/13/[address]: Tuyet Alvarado NP REQ: [id number] RECD: 04/13/17 STATUS: COMP _ SOURCE: JOSHUAMelany [facility]: ORDERED: Flu A B Request COMMENTS: [id number] Procedure Result Reported Site Rapid Influenza A B Request Final 04/13/17- 1950 ML Specimen received for Influenza A/B Molecular testing * ML - MAIN LAB ([facility]) . END OF REPORT * ML=Testing performed at Main Lab DEPARTMENT OF PATHOLOGY, [address] [place] [address] eRese Fu M.D. Director [facility] # [id number] 4 [id number] SEE RESULT BELOW Name: SILVANAANNYFN Mello : [address]: Karla Rich MD Acct: [id number] Unit: [id number] AGE: 36 Location: [facility] Re02/21/17 SEX: F Status: REG REF SPEC: [id number] LAMBERTO: 02/21/[address]: Karla Rich MD REQ: [id number] RECD: 02/21/17 STATUS: SOUT _ ORDERED: TP IMAGE ANAL, HPV/Thin Prep, HPV 16/18 GENE COMMENTS: [id number] Negative for Intraepithelial lesion or Malignancy A. Ectocervical/Endocervical Specimen Adequacy: Satisfactory of evaluation Transformation zone component identified Patient Information: HPV: High risk HPV RNA testing regardless of pap results. HPV 16/18 Genotype Reflex Actual Specimen Date: 02/21/17 LMP If Unknown: 02/17 Spec Date if unknown: 2010 ?: N Post Menopausal?: N Hysterectomy?: N Date Time Test Result Flag (u) Normal Range 02/21/17 0904 @ HPV RNA RFLX GE Negative Negative @ @ The high-risk HPV types detected by the assay include: 16, @ 18, 31, 33, 35, 39, 45, 51, 52, 56, 58, 59, 66, and 68. Signed (signature on file) SUHAIL Krause(ASCP) 02/22 1318 This Pap test was evaluated with the assistance of the MIOXPrep Test Imaging System. Due to cytologic findings at the part time receptionist microscope, comprehensive manual rescreening by a Bird Keeper may be required. The Pap Smear is a screening test designed to aid in the detection of premalignant and malignant conditions of the uterine cervix. It is not a diagnostic procedure and should not be used as the sole means of detecting cervical cancer. Both false- positive and false- negative reports do occur. Depending on your risk status, a Pap smear should be obtained and evaluated every 1-3 years. END OF REPORT * ML=Testing performed at Main Lab DEPARTMENT OF PATHOLOGY, [address] [place] [address] Reese Fu M.D. Director [facility] # [id number] Please note: The following may produce a false positive D Dimer test: - Rheumatoid factor greater than 60 IU/ml - Plasma hemoglobin greater than 0.05 gm/dl - Bilirubin greater than 50 mg/dl - Lipids greater than 1000 mg/dl - FDP greater than 20 ug/ml 7 Because ethnic data is not always readily [...] 15-29 5 Kidney failure <15 (or dialysis) 8 Acute inflammation: >10.00 9 [id number] 10 Unable to calculate due to low microalbumin 11 It is recognized that currently available assays [...] 95% confidence interval of 99.78 to 99.96%. 12 Warning: A positive result is not useful for establishing a diagnosis of syphilis. In most situations, such a result may reflect a prior treated infection; a negative result can exclude a diagnosis of syphilis except for incubating or early primary disease. 13 [id number] 14 RYLEE JOHNSON to be notified Burn Out Tender Lace: [id number] CHUY STEPHEN 15 SEE RESULT BELOW Name: MARYA PINA I : [address]: Ana Jeffers MD Acct: [id number] Unit: [id number] AGE: 34 Location: ED Re06/06/15 SEX: F Status: DEP ER SPEC: [id number] LAMBERTO: 06/06/15 [facility] DR: Heidi Avery MD REQ: [id number] RECD: 06/06/15 STATUS: EDUARDO LANGFORD DR: [facility]on [facility] Karla Rich MD _ SOURCE: URINE SPDESC: ORDERED: Urine Culture Procedure Result Reported Site Urine Culture Final 06/07/15- 1122 ML No growth of clinically significant organisms * ML - MAIN LAB ([facility]) . END OF REPORT * ML=Testing performed at Main Lab DEPARTMENT OF PATHOLOGY, [address] [place] [address] Reese Fu M.D. Director [facility] # [id number] 16 Because ethnic data is not always readily [...] 15-29 5 Kidney failure <15 (or dialysis) 17 Female urine specimens have been self-validated by [facility] and have been granted conditional assay approval by [facility]. 18 Comment: right félix martinez 19 SEE RESULT BELOW Name: MARYA PINA I : [address]: Ana Jeffers MD Acct: [id number] Unit: [id number] AGE: 34 Location: ED Re10/01/14 SEX: F Status: DEP ER SPEC: [id number] LAMBERTO: 10/01/14-1729 [facility] DR: Brian ELIZABETH REQ: [id number] RECD: 10/01/14-1810 STATUS: EDUARDO LANGFORD DR: Ana Jeffers MD _ SOURCE: ALEXANDRE SHEFF[place] SPDESC: ORDERED: Culture Stain COMMENTS: Comment: right armpit [...] performed at Main Lab DEPARTMENT OF PATHOLOGY, [address] [place] [address] Bereket Harper [facility] # [id number] Patient: MARYA PINA I [id number] (Continued) Specimen: [id number] Collected: 10/01/14 Received: 10/01/14 (Continued) Procedure Result Verified Site Wound/Misc Culture Final (continued) 10/03/14- 1000 1. STAPHYLOCOCCUS AUREUS (continued) M.I.C. RX --------- ------ Imipenem-Deduced S * Ampicillin/Sulbactam-Deduced S Cefazolin-Deduced S * These antibiotics are not available in the [facility] Formulary Contact the Microbiology Department for any additional antibiotic reporting. * ML - MAIN LAB ([facility]) . END OF REPORT * ML=Testing performed at Main Lab DEPARTMENT OF PATHOLOGY, [address] [place] [address] Reese Fu M.D. Director [facility] # [id number] 20 Desirable <150 Borderline high 150-199 High 200-499 Very High >500 21 Desirable <200 Borderline high 200-239 High >239 22 Low <40 Desirable: 40-60 High: >60 23 Desirable: <100 mg/dL Near Optimal: 100-129 mg/dL Borderline High: 130-159 mg/dL High: 160-189 mg/dL Very High: >189 mg/dL 24 Because ethnic data is not always readily [...] 15-29 5 Kidney failure <15 (or dialysis) 25 Desirable <150 Borderline high 150-199 High 200-499 Very High >500 26 Desirable <200 Borderline high 200-239 High >239 27 Low <40 Desirable: 40-60 High: >60 28 Desirable <100 Near Optimal 100-129 Borderline high 130-159 High 160-189 Very High >189 29 Therapeutic target for the treatment of diabetes Mellitus patients is <7% HBA1C, and in selective patients <6.0%.Please refer to [place] Diabetes Association Diabetic care guidelines for further information. 30 Because ethnic data is not always readily [...] 15-29 5 Kidney failure <15 (or dialysis) 31 Microalbuminuria in a random sample is defined as: Microalbumin/Creatinine ratio of 30-299 ug/mg. 32 RUN DATE: 03/06/13 [facility] LAB LIVE PAGE 1 RUN TIME: [address] [place] [id number] Specimen Inquiry Name: MARYA PINA I : [address]: Damien rAgueta DO Acct: [id number] Unit: [id number] AGE: 32 Location: ED Re03/06/13 SEX: F Status: REG ER SPEC: [id number] LAMBERTO: 03/06/13-1215 [facility] DR: Babs ARTHUR REQ: [id number] RECD: 03/06/13 STATUS: EDUARDO LANGFORD DR: Damien Doan MD _ SOURCE: FAROOQ [facility]: ORDERED: Rapid Flu A B Procedure Result [...] performed at Main Lab DEPARTMENT OF PATHOLOGY, [address] [place] [address] Reese Fu M.D. Director [facility] Permit #[id number] 33 -- REFERENCE VALUE -- 25-HYDROXY D TOTAL (D2+D3) [employer] levels in the healthy population are 20-50, patients with bone disease may benefit from higher levels within this range. Test Performed by: [address] [address] [employer] Machine Operator Helper: Krish Mckinnon III, M.D. 34 HDL Interpretation: Undesirable: High Risk: Less than 40 MG/DL Desirable: Low Risk: Greater than 60 MG/DL 35 LDL Interpretation: Low Risk Optimal Level: LDL Less than 100 MG/DL Near or Above Optimal: LDL 100-129 MG/DL Borderline High Risk: LDL 130-159 MG/DL High Risk: LDL 160-189 MG/DL Very High Risk: LDL Greater than 189 MG/DL 36 Because ethnic data is not always readily [...] 15-29 5 Kidney failure <15 (or dialysis) 37 Microalbuminuria in a random sample is defined as: Microalbumin/Creatinine ratio of 30-299 ug/mg. 38 Because ethnic data is not always readily [...] 15-29 5 Kidney failure <15 (or dialysis) 39 RUN DATE: 02/22/12 [facility] LAB LIVE PAGE 1 RUN TIME: [address] [place] [id number] Specimen Inquiry Name: MARYA PINA DOB: [address]: Sukumar Madera DO Acct: [id number] Unit: [id number] AGE: 31 Location: ED Re02/22/12 SEX: F Status: REG ER SPEC: [id number] LAMBERTO: 02/22/12-152 [facility] DR: Deepthi Corona RPA REQ: [id number] RECD: 02/22/12-1607 STATUS: EDUARDO LANGFORD DR: Sukumar Madera DO, MD,[facility] _ SOURCE: FAROOQ [facility]: ORDERED: Rapid Flu A B Procedure Result [...] performed at Main Lab DEPARTMENT OF PATHOLOGY, [address] [place] [address] Reese Fu M.D. Director [facility] Permit #[id number] Procedures Date CPT Code Description Status 04/25/2016 Diabetic Retinal Eye Exam Completed 01/21/2015 Diabetic Retinal Eye Exam Completed 09/20/2012 03817 Polysomnography Sleep Staging 4+ Parameters Completed 03/28/2012 62217 Pulmonary Function><Bronchodilator Completed Encounters Type Date Location Provider CPT E/M Dx Office Visit 04/13/2017 [facility] Internal Medicine Tuyet Alvarado, N.PJessica 34808 F17.200 11:40a - [place] J20.9 E11.65 Office Visit 03/30/2017 9:00a [facility] [place] [address] I82.819 [place] J01.90 Office Visit 02/21/2017 8:00a [facility] Internal Medicine Karla Rich 79079 Z00.00 - [place] Z12.4 E11.65 Z72.0 I82.819 R05 F32.89 Office Visit 02/14/2017 8:40a [facility] Internal Karla Rich 98333 I82.819 Medicine - Linette [place] E11.65 Office Visit 12/09/2016 11:40a [facility] Internal Medicine - Tuyet Alvarado N.PJessica 88190 R05 [place] R07.89 Office Visit 11/29/2016 10:20a [facility] Internal Medicine Tuyet Alvarado N.PJessica 70588 J45.41 - [place] E11.65 F17.218 Office Visit 11/11/2016 10:20a [facility] Internal Medicine Tuyet Alvarado N.PJessica 47870 J20.9 - [place] Office Visit 10/31/2016 10:30a [facility] Yennifer Naylor, 31990 G56.03 Of [place]a [place] G56.23 Office Visit 10/04/2016 1:00p [facility] Internal Medicine Tuyet Alvarado, N.P. 61575 E11.65 - [place] J45.30 J30.9 M79.641 Z23 Office Visit 08/22/2016 2:00p [facility] Internal Medicine Tuyet Alvarado, N.P. 96921 E11.65 - [place] J20.9 Office Visit 04/29/2016 1:00p [facility] Internal Medicine Tuyet Alvarado, N.P. 65287 R19.7 - [place] J20.9 Office Visit 03/02/2016 11:20a [facility] Internal Medicine Tuyet Alvarado, N.P. 32122 F43.23 - [place] B37.3 Z11.3 R19.7 Office Visit 12/31/2015 10:40a [facility] Internal Medicine Tuyet Alvarado, N.P. 24168 J20.9 - [place] M54.89 Office Visit 10/26/2015 10:00a [facility] Internal Medicine Tuyet Alvarado, N.P. 48426 Z79.4 - [place] E11.65 F17.210 H66.93 Office Visit 08/17/2015 11:40a [facility] Internal Medicine Tuyet Alvarado, N.P. 96032 B37.0 - [place] J20.9 J45.901 Office Visit 07/24/2015 10:00a [facility] Internal Medicine Tuyet Alvarado, N.P. 81742 J20.9 - [place] E11.65 Office Visit 06/11/2015 2:40p [facility] Internal Medicine Wilfredo Patel, 10753 R10.13 - [place] M.D. Office Visit 04/22/2015 10:00a [facility] Internal Medicine Tuyet Alvarado, N.P. 99409 E11.65 - [place] I80.02 J30.9 F17.210 Office Visit 01/20/2015 11:20a [facility] Internal Medicine Tuyet Alvarado, N.P. 53391 Z11.3 - [place] E11.65 I10 F17.210 Z23 Office Visit 12/17/2014 11:20a [facility] Internal Medicine Tuyet Alvarado N.P. 05802 Z79.4 - [place] E11.65 J20.9 I10 L02.421 L02.422 F17.210 Office Visit 05/09/2014 1:00p [facility] Internal Medicine Tuyet Alvarado, N.P. 34225 250.02 - [place] 401.1 305.1 311 493.90 477.9 110.1 466.0 493.92 V58.67 Office Visit 09/12/2013 10:30a [facility] Internal Medicine Cassidy Lua N.P. 30426 250.02 - [place] 278.01 Office Visit 08/30/2013 11:20a [facility] Internal Medicine - Cristina Garcia M.D. 06865 250.02 [place] 382.9 477.9 Office Visit 05/03/2013 11:00a [facility] Internal Medicine - Cristina Garcia M.D. 19099 250.02 [place] 381.4 278.01 305.1 327.23 Office Visit 04/15/2013 10:20a [facility] Internal Medicine - Cristina Garcia M.D. 20667 493.90 [place] 466.0 381.4 250.02 Office Visit 01/22/2013 11:20a [facility] Internal Medicine Tuyet Alvarado, N.P. 69622 466.0 - [place] 381.81 Office Visit 01/07/2013 9:40a [facility] Internal Medicine Tuyet Alvarado, N.P. 48635 466.0 - [place] 686.8 727.03 Office Visit 11/28/2012 11:00a [facility] Internal Medicine - Cristina Garcia M.D. 72592 493.90 [place] Office Visit 11/14/2012 2:40p [facility] Internal Medicine - Cristina Garcia M.D. 81594 250.02 [place] 278.01 311 782.0 Office Visit 10/29/2012 8:40a [facility] Internal Medicine - Cristina Garcia M.D. 77656 278.01 [place] 729.5 250.02 311 Office Visit 08/17/2012 11:00a [facility] Internal Medicine - Cristina Garcia M.D. 66672 305.1 [place] 278.01 729.5 Office Visit 07/18/2012 4:17p [facility] Emanuel [place], 31256 786.09 [facility] [place] Office Visit 06/25/2012 11:40a [facility] Internal Medicine Cristina Garcia M.D. 80999 278.01 - [place] 305.1 250.02 Office Visit 05/21/2012 9:20a [facility] Internal Medicine - Cristina Garcia M.D. 01936 250.02 [place] 493.90 305.1 278.01 401.1 307.49 382.9 V03.82 Office Visit 03/28/2012 1:40p [facility] Internal Medicine - Cristina Garcia M.D. 82374 250.02 [place] 493.90 305.1 Office Visit 03/14/2012 2:20p [facility] Internal Medicine - Cristina Garcia M.D. 53862 250.02 [place] 278.01 305.1 493.90 401.1 307.49 521.08 Office Visit 01/18/2012 9:40a [facility] Internal Medicine Tuyet Alvarado, N.P. 27043 682.8 - [place] Office Visit 05/12/2011 9:30a [facility] Internal Medicine Constance Larkin M.D. 31556 278.01 - [place] 477.9 250.02 305.1 Plan of Care 05/22/2017 - Shane Anderson, NPJ01.90 Acute sinusitis, unspecifiedNew Medication: Doxycycline Hyclate 100 mgComments:Complete the entire course of antibiotics, even if feeling better.Continue to use the Flonase. You can use the benzonatate that you have for the cough.Follow up:prnJ20.9 Acute bronchitis, unspecifiedComments:Continue using your Advair daily.Try to increase the nebulizer treatments to three times daily whileyou are sick.
--- NOTE | 2017-06-03 16:23 | UC ---
Lower Extremity/Ankle HPI - HPI Summary HPI Summary: Patient states she had right lower extremity vein surgery on 05-31-17, she applied a band-aid that possibly had latex on it (she is allergic to it) and later developed a rash and soreness on the area. Has been applying bacitracin ointment ever since. Denies fever, induration of the area or problems with ambulation, although area is in the inner thigh and when she walks there is some chaffing of the skin. She also states she is about to start her second course of antibiotics due to b/l ear infection. - History of Current Complaint Chief Complaint: Ramón Stated Complaint: WOUND RECHECK Time Seen by Provider: 06/03/17 15:50 Hx Obtained From: Patient Hx Last Menstrual Period: one week ago ?: No Onset/Duration: Sudden Onset, Lasting Days Severity Initially: Mild Severity Currently: Moderate Pain Intensity: 8 Aggravating Factor(s): Ambulation - Risk Factors Gout Risk Factors: Negative DVT Risk Factors: Negative Septic Arthritis Risk Factor: Negative - Allergies/Home Medications Allergies/Adverse Reactions: Allergies Allergy/AdvReac Type Severity Reaction Status Date / Time hydrocodone Allergy Rash Verified 06/03/17 15:47 latex Allergy Itching Verified 06/03/17 15:47 PMH/Surg Hx/FS Hx/Imm Hx Previously Healthy: Yes Endocrine History: Diabetes, Dyslipidemia Respiratory History: Asthma Psychological History: Depression Other History Of: Negative For: Anticoagulant Therapy - Surgical History Surgical History: Yes Surgery Procedure, Year, and Place: 1993 tonsils, 2003 , 2004 cholecystectomy, 2012 complete tooth extraction (uppers & lowers). 05/31/17 vein - Family History Known Family History: Positive: None, Cardiac Disease, Other - Positive FMHx for URI Negative: Hypertension, Diabetes - Social History Alcohol Use: None Substance Use Type: None Smoking Status (MU): Heavy Every Day Tobacco Smoker Amount Used/How Often: 1 pack /day Household Exposure Type: Cigarettes Review of Systems Constitutional: Negative Skin: Rash, Bruising Musculoskeletal: Myalgia All Other Systems Reviewed And Are Negative: Yes Physical Exam Triage Information Reviewed: Yes Appearance: Well-Appearing, No Pain Distress, Obese Vital Signs: Initial Vital Signs Temp 98 F 06/03/17 15:42 Pulse 92 06/03/17 15:42 Resp 18 06/03/17 15:42 BP 155/89 06/03/17 15:42 Pulse Ox 99 06/03/17 15:42 Vital Signs Reviewed: Yes Eyes: Positive: Conjunctiva Clear ENT: Positive: Hearing grossly normal, Pharynx normal, TMs normal, Uvula midline Neck: Positive: Supple, Nontender, No Lymphadenopathy Respiratory: Positive: Chest non-tender, Lungs clear, Normal breath sounds, No respiratory distress Cardiovascular: Positive: RRR, No Murmur, Pulses Normal, Brisk Capillary Refill Abdomen Description: Positive: Nontender, No Organomegaly, Soft Bowel Sounds: Positive: Present Musculoskeletal: Positive: Other: - tender on insertion of medial tendons of thigh adductors on pubis ramus right LE Skin Exam: Other - echymosis on dermis on right medial thigh, no induration, non tender to palpation. A suture noted on area, no surrounding erythema Lower Extremity Course/Dx - Differential Dx/Diagnosis Provider Diagnoses: Tendinitis. Hematoma. Latex allergy Discharge - Sign-Out/Discharge Documenting (check all that apply): Discharge - Discharge Plan Condition: Stable Disposition: HOME Patient Education Materials: Latex Allergy (ED), Hematoma (ED), Tendinitis (ED) Referrals: Tuyet Alvarado NP [Primary Care Provider] - - Billing Disposition and Condition Condition: STABLE Disposition: HOME
== END 2017-06-03 16:15 | disposition home or self-care (01) ==
LOC: UCEAST 13:51
DX: L76.32 Postprocedural hematoma of skin and subcutaneous tissue following other procedure (principal); M76.9 Unspecified enthesopathy, lower limb, excluding foot; T65.811A Toxic effect of latex, accidental (unintentional), initial encounter; L23.1 Allergic contact dermatitis due to adhesives; Y92.9 Unspecified place or not applicable; E11.9 Type 2 diabetes mellitus without complications; Z79.84 Long term (current) use of oral hypoglycemic drugs; E78.5 Hyperlipidemia, unspecified; J45.909 Unspecified asthma, uncomplicated; F32.9 Major depressive disorder, single episode, unspecified; Z88.5 Allergy status to narcotic agent; Z91.040 Latex allergy status; F17.210 Nicotine dependence, cigarettes, uncomplicated
CPT/HCPCS: 99212; G0463

== ENCOUNTER 2017-12-16 09:05 | Emergency (ER) | payer OTHER ==
[2017-12-16 09:13] VITALS: BP 128/85
--- NOTE | 2017-12-16 09:32 | UC ---
Lower Extremity/Ankle HPI - HPI Summary HPI Summary: Pt c/o worening lower leg edema. Pt has known hx of lymphadema and has hx DVT. Pt has hx of Von willebrand. Denies fever or chills or abnormal bleeding. Pt denies SOB or chest pain. - History of Current Complaint Chief Complaint: UCLowerExtremity Stated Complaint: SWELLING BOTH LEGS W/ RED SPOTS Time Seen by Provider: 12/16/17 09:23 Hx Obtained From: Patient Hx Last Menstrual Period: 11/24/17 ?: No Onset/Duration: Gradual Onset, Lasting Days, Still Present, Worse Since - onset Severity Initially: Mild Severity Currently: Severe Pain Intensity: 10 Aggravating Factor(s): Standing, Ambulation Alleviating Factor(s): Nothing Able to Bear Weight: No - Risk Factors Gout Risk Factors: Obesity DVT Risk Factors: Prior DVT, Family Hx of Clotting Disorder Septic Arthritis Risk Factor: Negative - Allergies/Home Medications Allergies/Adverse Reactions: Allergies Allergy/AdvReac Type Severity Reaction Status Date / Time hydrocodone Allergy Rash Verified 12/16/17 09:14 latex Allergy Itching Verified 12/16/17 09:14 Home Medications: Home Medications Acetaminophen TAB* [Tylenol TAB*] 650 mg PO Q4H PRN 12/16/17 [History Confirmed 12/16/17] Aspirin [Aspirin Childrens 81 MG] 81 mg PO DAILY 12/16/17 [History Confirmed ] Sitagliptin Phosphate [Januvia] 100 mg PO DAILY 12/16/17 [History Confirmed ] PMH/Surg Hx/FS Hx/Imm Hx Previously Healthy: Yes - obese Other History Of: Negative For: Anticoagulant Therapy - DVT and VIII (von willebrand) - Surgical History Surgical History: Yes Surgery Procedure, Year, and Place: 1993 tonsils, 2003 , 2004 cholecystectomy, 2013 complete tooth extraction (uppers & lowers). 05/31/17 vein - Family History Known Family History: Positive: None, Cardiac Disease, Other - Positive FMHx for URI Negative: Hypertension, Diabetes - Social History Occupation: Works From/At Home Lives: With Family Alcohol Use: None Substance Use Type: None Smoking Status (MU): Heavy Every Day Tobacco Smoker Amount Used/How Often: 1 pack /day Have You Smoked in the Last Year: Yes Household Exposure Type: Cigarettes - Immunization History Vaccination Up to Date: No Review of Systems Constitutional: Negative, Fatigue - states she is alwasy tired Skin: Other - erythema bilateral lower extremities ENT: Negative Respiratory: Negative Cardiovascular: Negative Gastrointestinal: Negative Genitourinary: Negative Motor: Negative Neurovascular: Negative Musculoskeletal: Edema - bilateral lower extremities and feet Neurological: Negative Psychological: Negative Is Patient Immunocompromised?: No All Other Systems Reviewed And Are Negative: Yes Physical Exam Triage Information Reviewed: Yes Appearance: Well-Appearing, Obese Vital Signs: Initial Vital Signs Temp 97.8 F 12/16/17 09:09 Pulse 86 12/16/17 09:09 Resp 16 12/16/17 09:09 BP 128/85 12/16/17 09:09 Pulse Ox 99 12/16/17 09:09 Vital Signs Reviewed: Yes Eye Exam: Normal ENT: Positive: Hearing grossly normal Dental Exam: Normal Neck exam: Normal Respiratory Exam: Normal Respiratory: Positive: Normal breath sounds Cardiovascular Exam: Normal Cardiovascular: Positive: RRR, No Murmur Musculoskeletal: Positive: Strength Intact - at baseline, ROM Intact - at baseline, Edema @ - bilateral lower extremities non pitting edema. bialteral lower feet significant sweling to "top of feet". skin mild erythematous. Neurological Exam: Normal Psychological Exam: Normal Skin Exam: Other - mild erythema bilateral lower extremities "tops of bilateral feet" and distal lower leg/anterior. No calf tenderness. Erythema is blanchable. not evidence of ITP. Lower Extremity Course/Dx - Course Course Of Treatment: Pt was instructed to monitor for worsening condition including but not limited to: swelling, SOB, chest pain, fever, chills or increased in pain. If symptoms worsen, pt was instructed ot go directly to ER. Pt was also instructed to elevate lower extremities above heart for prolonged periods of time but to make sure she is not sedemtary for long periods of time. Pt verbalized understanding and agreed to plan of care. - Differential Dx/Diagnosis Differential Diagnosis/HQI/PQRI: Cellulitis, DVT, Phlebitis, Other - ITP Provider Diagnoses: exacerbation of lylmphedema. cellulitis Discharge - Sign-Out/Discharge Documenting (check all that apply): Patient Departure All imaging exams completed and their final reports reviewed: No Studies - Discharge Plan Condition: Stable Disposition: HOME Prescriptions: Cephalexin CAP* [Keflex 500 CAP*] 500 mg PO Q8H #21 cap Compress.stocking,Knee,Reg,Lrg [Truform Compression Stocking] 1 each MC DAILY # 1 each Patient Education Materials: Cellulitis (ED), Leg Edema (ED) Referrals: Tuyet Alvarado NP [Nurse Practitioner] - As Soon As Possible Galo De Paz MD [Primary Care Provider] - - Billing Disposition and Condition Condition: STABLE Disposition: Home
== END 2017-12-16 09:38 | disposition home or self-care (01) ==
LOC: UCEAST 09:05
DX: L03.116 Cellulitis of left lower limb (principal); L03.115 Cellulitis of right lower limb; R59.0 Localized enlarged lymph nodes; D68.0 Von Willebrand disease; E66.9 Obesity, unspecified; F17.210 Nicotine dependence, cigarettes, uncomplicated; Z91.040 Latex allergy status; Z88.5 Allergy status to narcotic agent; Z79.82 Long term (current) use of aspirin; Z86.79 Personal history of other diseases of the circulatory system; Z79.84 Long term (current) use of oral hypoglycemic drugs
CPT/HCPCS: 99212; G0463

== ENCOUNTER 2018-05-16 11:24 | Emergency (ER) | payer OTHER ==
--- NOTE | 2018-05-16 13:52 | UC ---
Neck Pain HPI - HPI Summary HPI Summary: 37-year-old female presents with complaints of right neck and shoulder pain after accidentally falling off of her couch 5 days ago. States pain has progressively worsened over the last 5 days and is a constant ache that worsens with any movement. She took one dose of acetaminophen and ibuprofen at around 8 :00 this morning with no relief in the pain. Denies hitting head, loss of consciousness, visual disturbances, dizziness, numbness or tingling in the extremities, chest pain, palpitations, shortness of breath, abdominal pain, nausea, vomiting. - History of Current Complaint Chief Complaint: UCUpperExtremity Stated Complaint: SHOULDER AND NECK PAIN Time Seen by Provider: 05/16/18 13:22 Hx Obtained From: Patient Hx Last Menstrual Period: 05/14/18 Pain Intensity: 10 - Allergies/Home Medications Allergies/Adverse Reactions: Allergies Allergy/AdvReac Type Severity Reaction Status Date / Time hydrocodone Allergy Rash Verified 05/16/18 12:52 latex Allergy Itching Verified 05/16/18 12:52 Home Medications: Home Medications Ibuprofen TAB* [Motrin TAB* 400 MG] 400 mg PO Q6H PRN 05/16/18 [History Confirmed 05/16/18] PMH/Surg Hx/FS Hx/Imm Hx - Additional Past Medical History Additional PMH: Environmental allergies Endocrine History: Diabetes Respiratory History: COPD Psychological History: Depression Other History Of: Negative For: Anticoagulant Therapy - DVT and VIII (von willebrand) - Surgical History Surgical History: Yes Surgery Procedure, Year, and Place: 1993 tonsils, 2003 , 2004 cholecystectomy, 2012 complete tooth extraction (uppers & lowers). 05/31/17 vein - Family History Known Family History: Positive: None, Cardiac Disease, Other - Positive FMHx for URI Negative: Hypertension, Diabetes - Social History Occupation: Unemployed Lives: Alone Alcohol Use: None Substance Use Type: None Smoking Status (MU): Heavy Every Day Tobacco Smoker Amount Used/How Often: 1 pack /day Have You Smoked in the Last Year: Yes Household Exposure Type: Cigarettes - Immunization History Vaccination Up to Date: No Review of Systems All Other Systems Reviewed And Are Negative: Yes Constitutional: Positive: Negative Skin: Negative: Bruising Respiratory: Negative: Shortness Of Breath, Cough Cardiovascular: Negative: Palpitations, Chest Pain Gastrointestinal: Negative: Abdominal Pain, Vomiting, Diarrhea, Nausea Genitourinary: Positive: Negative Musculoskeletal: Positive: Other: - See HPI Neurological: Positive: Negative Is Patient Immunocompromised?: No Physical Exam - Summary Physical Exam Summary: GENERAL APPEARANCE: Well developed, obese, alert and cooperative, and appears to be in no acute distress. HEAD: Atraumatic. normocephalic. NECK: Neck supple. No tenderness or deformity of the cervical spine. Tenderness with mild spasm over the right trapezius. CARDIAC: Normal S1 and S2. No S3, S4 or murmurs. Rhythm is regular. There is no peripheral edema, cyanosis or pallor. Extremities are warm and well perfused. Capillary refill is less than 2 seconds. Peripheral pulses intact. LUNGS: Clear to auscultation without rales, rhonchi, wheezing or diminished breath sounds. ABDOMEN: Positive bowel sounds. Soft, nondistended, nontender. No guarding or rebound. No masses or hepatosplenomegally. MUSKULOSKELETAL: Normal muscular development. Normal gait. BACK: Examination of the spine reveals normal posture, no spinal deformity or tenderness, decreased range of motion or muscular spasm. EXTREMITIES: Full passive ROM to right shoulder with mild discomfort especially with abduction. No deformity or crepitus noted. NEUROLOGICAL: Strength and sensation symmetric and intact throughout. SKIN: Skin normal color, texture and turgor with no lesions or eruptions. Triage Information Reviewed: Yes Vital Signs: Initial Vital Signs Temp 98 F 05/16/18 12:48 Pulse 100 05/16/18 12:48 Resp 20 05/16/18 12:48 BP 120/64 05/16/18 12:48 Pulse Ox 100 05/16/18 12:48 Vital Signs Reviewed: Yes Diagnostics - Radiology No standard instances Radiology Interpretation Completed By: Radiologist Summary of Radiographic Findings: Order Information: SP CERVICAL 4+VWS. Accession Number: [id number]. CPT: 32982. HISTORY: pain s/p fall from couch. COMPARISONS: None relevant available at the time of dictation. VIEWS: 6, Frontal, lateral, swimmer's, open-mouth odontoid, and bilateral oblique views of the cervical spine. FINDINGS: The cervical spine is visualized from the skull base through C7-T1. ALIGNMENT: There is straightening of the normal cervical lordosis. VERTEBRAL BODIES: The odontoid process is intact. The atlantoaxial intervals are symmetric. JOINTS: There is no subluxation or dislocation. The facet joints are unremarkable. INTERVERTEBRAL DISCS: There is mild diffuse loss of intervertebral disc height. SOFT TISSUE: The prevertebral soft tissues are normal. OTHER: The skull base is normal. The lung apices are clear. IMPRESSION: STRAIGHTENING OF THE CERVICAL LORDOSIS. NO ACUTE OSSEOUS INJURY TO THE CERVICAL SPINE. Order Information: SHOULDER RIGHT 2+ VWS. Accession Number: [id number]. CPT: 82124. INDICATION: Right shoulder injury. TECHNIQUE: 4 views of the right shoulder were obtained. FINDINGS: The bones are in normal alignment. No fracture is seen. There is a calcification adjacent to the superior lateral aspect of the humeral head suggestive of calcific tendinitis. There is moderate osteoarthritic change in the acromioclavicular joint. IMPRESSION: NO EVIDENCE OF FRACTURE. Neck Pain Course/Dx - Course Course Of Treatment: 37-year-old female presents with complaints of right neck and shoulder pain after accidentally falling off of her couch 5 days ago. States pain has progressively worsened over the last 5 days and is a constant ache that worsens with any movement. She took one dose of acetaminophen and ibuprofen at around 8:00 this morning with no relief in the pain. Denies hitting head, loss of consciousness, visual disturbances, dizziness, numbness or tingling in the extremities, chest pain, palpitations, shortness of breath, abdominal pain, nausea, vomiting. Afebrile. Vital signs stable. Exam reveals an adult female in no acute distress with mild tenderness over the right trapezius with mild spasm, no tenderness or deformities noticed over the cervical spine, cervical range of motion is mildly decreased especially with rotation to the left due to pain, no gross deformity to the right shoulder, full passive range of motion without crepitus although some pain is elicited particularly with abduction, no erythema or bruising is noted, and otherwise unremarkable exam. Patient was given Toradol 30 mg IM and cyclobenzaprine 10 mg by mouth for pain. Cervical spine x-ray showed no acute osseous injury. Right shoulder x-ray showed no evidence of acute fracture or dislocation. Recommending conservative treatment for a cervical and right shoulder strain including NSAIDs, muscle relaxant, and heat therapy. She is to follow-up with her primary care provider in 5-7 days if symptoms do not improve. Anticipatory guidance warning symptoms were reviewed with the patient. Verbalizes understanding and agrees with plan of care. - Differential Dx/Diagnosis Differential Dx/HQI/PQRI: Cervical Fracture, Sprain, Strain, Torticollis Provider Diagnosis: Cervical strain, acute, Sprain of right shoulder Discharge - Sign-Out/Discharge Documenting (check all that apply): Patient Departure All imaging exams completed and their final reports reviewed: Yes - Discharge Plan Condition: Stable Disposition: HOME Prescriptions: Cyclobenzaprine TAB* [Flexeril 10 MG TAB*] 10 mg PO TID PRN #30 tab PRN Reason: Spasms Naproxen [Naproxen 500 mg tab] 500 mg PO Q12HR #30 tablet Patient Education Materials: Cervical Strain (ED), Shoulder Sprain (ED) Referrals: Galo De Paz MD [Primary Care Provider] - 7 Days (If no improvement.) Additional Instructions: The x-rays of your neck and shoulder performed in the clinic today showed no evidence of fracture or dislocation. I suspect that you have a cervical strain and right shoulder sprain. You were given an anti-inflammatory pain medication called ketoralac (Toradol) in the clinic. Do not take any other anti-inflammatory medications such as ibuprofen (Advil, Motrin), naproxen (Aleve), or aspirin for at least 8 hours after receiving. You received your injection around 2:30 pm. Take naproxen 1 tab with food every 12 hours for next 5-7 days then may take every 12 hours as needed for pain. Use cyclobenzaprine 1 tab every 8 hours as needed for severe pain or spasm. Your received a dose of this at 2:30 pm. This medication will cause drowsiness so do not take and drive or operate machinery. Use a heating pad to the affected area for 15-20 minutes at least 4 times a day to help relax the muscles and improve the pain. Follow up with your primary care provider in 5-7 days if no improvement in symptoms. Seek immediate medical attention in the emergency room if you have severe pain that is not managed with your pain medication, develop numbness or tingling in your extremities, lose function of the arm, have chest pain, shortness of breath , abdominal pain, or any worsening of symptoms. - Billing Disposition and Condition Condition: STABLE Disposition: Home
[2018-05-16] MEDS ORDERED: Ketorolac INJ* 30 MG/ML 1 ML VIAL IM ONE (13:55)
[2018-05-16] MEDS ORDERED: Cyclobenzaprine TAB* 10 MG PO ONE (13:55)
[2018-05-16 15:05] VITALS: BP 169/82
== END 2018-05-16 15:02 | disposition home or self-care (01) ==
LOC: UCEAST 11:24
DX: S16.1XXA Strain of muscle, fascia and tendon at neck level, initial encounter (principal); S43.401A Unspecified sprain of right shoulder joint, initial encounter; E11.9 Type 2 diabetes mellitus without complications; J44.9 Chronic obstructive pulmonary disease, unspecified; E66.9 Obesity, unspecified; F17.210 Nicotine dependence, cigarettes, uncomplicated; Z91.040 Latex allergy status; Z88.5 Allergy status to narcotic agent; Z91.09 Other allergy status, other than to drugs and biological substances; W08.XXXA Fall from other furniture, initial encounter; Y92.9 Unspecified place or not applicable
CPT/HCPCS: 72050; 99212; A9270-GY; G0463; J1885

== ENCOUNTER 2018-05-19 13:45 | Emergency (ER) | payer OTHER ==
[2018-05-19 14:51] VITALS: BP 138/80
--- NOTE | 2018-05-19 15:34 | UC ---
Skin Complaint HPI - HPI Summary HPI Summary: PATIENT NOTICED A SMALL SPOT ON HER RIGHT JOHNSON A COUPLE OF DAYS AGO THAT HAS BEEN OOZING CLEAR FLUID. NO SURROUNDING REDNESS OF THE SKIN. NO FEVER. ONLY MILD TENDERNESS. HAS A HISTORY OF OBESITY, UNCONTROLLED DIABETES AND LYMPHEDEMA. NO KNOWN TRAUMA. - History of Current Complaint Chief Complaint: UCSkin Time Seen by Provider: 05/19/18 15:27 Stated Complaint: WOUND ON LEG THAT IS LEAKING Hx Obtained From: Patient Hx Last Menstrual Period: one week ago Onset/Duration: Lasting Days, Still Present Timing: Constant Onset Severity: Mild Current Severity: Mild Pain Intensity: 0 Pain Scale Used: 0-10 Numeric Character: Swelling Aggravating Factor(s): Nothing Alleviating Factor(s): Nothing Associated Signs & Symptoms: Positive: Drainage. Negative: Fever, Chills, Tenderness, Red Streaks - Allergy/Home Medications Allergies/Adverse Reactions: Allergies Allergy/AdvReac Type Severity Reaction Status Date / Time hydrocodone Allergy Rash Verified 05/16/18 12:52 latex Allergy Itching Verified 05/16/18 12:52 PMH/Surg Hx/FS Hx/Imm Hx Endocrine History: Diabetes Cardiovascular History: Hypertension Respiratory History: Asthma Other History Of: Negative For: Anticoagulant Therapy - DVT and VIII (von willebrand) - Surgical History Surgical History: Yes Surgery Procedure, Year, and Place: 1993 tonsils, 2003 , 2004 cholecystectomy, 2012 complete tooth extraction (uppers & lowers). 05/31/17 vein - Family History Known Family History: Positive: Cardiac Disease, Other - Positive FMHx for URI Negative: Hypertension, Diabetes - Social History Alcohol Use: None Substance Use Type: None Smoking Status (MU): Heavy Every Day Tobacco Smoker Amount Used/How Often: 1 pack /day Have You Smoked in the Last Year: Yes Household Exposure Type: Cigarettes - Immunization History Vaccination Up to Date: No Review of Systems All Other Systems Reviewed And Are Negative: Yes Constitutional: Positive: Negative Skin: Positive: Other - WOUND RIGHT JOHNSON Respiratory: Positive: Negative Cardiovascular: Positive: Negative Gastrointestinal: Positive: Negative Musculoskeletal: Positive: Edema Physical Exam Triage Information Reviewed: Yes Appearance: Well-Appearing, No Pain Distress, Well-Nourished Vital Signs: Initial Vital Signs Temp 97.9 F 05/19/18 14:49 Pulse 80 05/19/18 14:49 Resp 18 05/19/18 14:49 BP 138/80 05/19/18 14:49 Pulse Ox 99 05/19/18 14:49 Vital Signs Reviewed: Yes Eyes: Positive: Conjunctiva Clear ENT: Positive: Hearing grossly normal Neck: Positive: Supple Respiratory: Positive: No respiratory distress, No accessory muscle use Cardiovascular: Positive: Pulses Normal Abdomen Description: Positive: Soft Musculoskeletal: Positive: Edema @ - 2+ PITTING EDEMA BILATERAL ANKLES Neurological: Positive: Alert Psychological: Positive: Age Appropriate Behavior Skin: Positive: Other - 3MM WOUND OOZING CLEAR FLUID RIGHT SJIN.. Negative: Rashes Course/Dx - Course Course Of Treatment: SMALL WOUND ON RIGHT JOHNSON OOZING CLEAR FLUID. NO SIGN ON INFECTION. CLOSED WITH GLUE AND STERISTRIPS. PT WITH LYMPHEDEMA AND UNCONTROLLED DM. PT TO KEEP LEGS ELEVATED. WILL GIVE ABX TO HELP PREVENT INFECTION. FOLLOW-UP WITH SENIOR FINANCIAL REPORTING ACCOUNTANT SCHEDULED. - Diagnoses Provider Diagnosis: Leg wound, right Discharge - Sign-Out/Discharge Documenting (check all that apply): Patient Departure All imaging exams completed and their final reports reviewed: No Studies - Discharge Plan Condition: Stable Disposition: HOME Prescriptions: Cephalexin CAP* [Keflex 500 CAP*] 500 mg PO BID #10 cap Patient Education Materials: Abrasion (ED) Referrals: Galo De Paz MD [Primary Care Provider] - Additional Instructions: YOU HAVE A SMALL OPENING IN THE SKIN OF YOUR RIGHT JOHNSON THAT IS OOZING CLEAR FLUID. THERE IS NO SIGN OF INFECTION AT PRESENT. WOUND WAS CLOSED WITH GLUE AND STERI-STRIPS. KEEP YOUR LEGS ELEVATED WHENEVER SEATED. ANTIBIOTICS TO HELP PREVENT INFECTION. IDEALLY THE WOUND WILL HEAL OVER AND YOU WILL NOT EXPERIENCE ANY COMPLICATIONS. SEEK REEVALUATION IF YOU DEVELOP INCREASING PAIN , FEVER, PURULENT DRAINAGE, SPREADING REDNESS OF THE SKIN OR ANY OTHER CONCERNING SYMPTOMS. WITH UNCONTROLLED DIABETES YOU ARE MORE AT RISK FOR DEVELOPING SECONDARY INFECTION. KEEP YOUR APPOINTMENT WITH YOUR SENIOR FINANCIAL REPORTING ACCOUNTANT. - Billing Disposition and Condition Condition: STABLE Disposition: Home
== END 2018-05-19 16:00 | disposition home or self-care (01) ==
LOC: UCEAST 13:45
DX: S81.801A Unspecified open wound, right lower leg, initial encounter (principal); I10 Essential (primary) hypertension; J45.909 Unspecified asthma, uncomplicated; E11.9 Type 2 diabetes mellitus without complications; F17.210 Nicotine dependence, cigarettes, uncomplicated; Z91.040 Latex allergy status; Z88.5 Allergy status to narcotic agent; X58.XXXA Exposure to other specified factors, initial encounter; Y92.9 Unspecified place or not applicable
CPT/HCPCS: 99212; G0463

== ENCOUNTER 2018-09-30 17:51 | Emergency (ER) | payer OTHER ==
--- OUTSIDE RECORDS SUMMARY | 2018-09-30 18:05 | XMS REPORT | Continuity of Care Document ---
:1980 External Reference #:[id number] Author Name Mellissa Magaña Care Team Providers Name Role Phone Karla Rich MD Primary Care Physician Unavailable Payers Date Identification Numbers Payment Provider Subscriber Policy Number: [id number] [employer] Marya Pina Group Name: [id number] [address] [address] PayID: [id number] [place] [address] Expires: 2017 Policy Number: [id number] Medicaid Marya Pina Group Name: 1 1 [address] PayID: [id number] [place] [address] Effective: 2016 Policy Number: [id number] [employer] Marya Pina Expires: 2017 PayID: [id number] [address] [address] [place] [address] Problems Active Problems Provider Date Type II diabetes mellitus uncontrolled Constance Larkin M.D. Onset: 05/12/2011 Note: on insulin since 2018 Blood coagulation disorder Tuyet Alvarado, N.PJessica Onset: 07/18/2017 Morbid obesity Constance Larkin M.D. Onset: 05/12/2011 Tobacco user Constance Larkin M.D. Onset: 05/12/2011 Benign essential hypertension Cristina Garcia M.D. Onset: 03/14/2012 Sleep apnea Karla Rich M.D. Onset: 03/06/2012 Note: PFTs October 2017 normal with FVC 105% DLCO 70%; Asthma Karla Rich M.D. Onset: 02/21/2017 Lymphedema Tuyet Alvarado, N.Lori Onset: 09/04/2017 Allergic rhinitis Constance Larkin M.D. Onset: 05/12/2011 Gastroesophageal reflux disease Joshua Arita MD Onset: 09/13/2010 Resolved Problems Superficial thrombophlebitis Karla Rich M.D. 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 Has tried quitting with patches which caused allergic contact dermatitis Smoking Status Reviewed: 09/21/18 1 pack/day variable amounts. Has tried quitting with patches which caused allergic contact dermatitis Exercise Type/Frequency Exercises regularly walking, limited by leg swelling Allergies, Adverse Reactions, Alerts Active Allergies Reaction Severity Comments Date Hydrocodone Pt states she itch all over. 05/21/2012 Latex itchy and rash 08/17/2015 Inactive Allergies NKDA 05/12/2011 Medications Active Medications SIG Qnty Indications Ordering Date Provider Topiramate 1 qhs for 1 week 120tabs G43.009 Felice Jessica 25mg Tablets then 2 qhs for 1 Bereket Billingsley 9 week then 3 qhs for 1 week then 4 qhs Lyrica 1 by mouth twice 120caps G62.9 Felice Oconnell 50mg Capsules a day for 2 weeks Bereket Billingsley 9 then 2 twice a day Atorvastatin Calcium take 1 tablet by 90tabs E78.00 Langley 20mg mouth at bedtime Varn, N.P. 9 Tablets Ibuprofen 1 by mouth every 90tabs M54.5 Langley 600mg Tablets 6 hours as needed Varn, N.P. 9 for pain Advair Diskus inhale 1 dose by 60units J45.41 Langley 06/14/201 500-50mcg/Dose mouth twice daily Varn, N.P. 9 Aerosol (not taking) Humulin N 40 units QHS or 20ml E11.65 [facility], 100Unit/ML Suspension as directed, MDD 9 60 Humulin R 40 units tid-ac 50ml [facility], 100Unit/ML Solution or as directed, MD Blake MDD 180 Onetouch Verio test four times 150units [facility], Strips daily and as MD Blake needed Onetouch Ultrasoft use to test blood 300units [facility], Lancets glucose three MD Blake Misc times a day and as needed Ozempic Hold On File, 1mg 3ml E11.65 [facility], 1mg/Dose Solution injection once MD Blake Pen-Inject weekly, hold on file for second month Amitriptyline HCL 2 tablets, (20 60tabs E11.40 [facility], 10mg Tablets mg) at bedtime MD Blake Insulin Syringe/0.5ML/30G 4 times daily for 150units E11.40 [facility], X 1/2" insulin MD Blake 30G X 1/2" [facility].5 [facility] Gl[facility] test blood sugars 1units E11.65 Tuyet System once fasting and Varn, N.P. 9 W/Device Kit 2 hours after dinner meal Blood Glucose Test test blood sugar 100units E11.65 Langley Strips fasting in in the Varn, N.P. 9 morning and 2 hours after dinner meal Lancet Device use when testing 100units E11.65 Tuyet Misc blood gluose Varn, N.P. 9 Pantoprazole Sodium Take One Tablet 30tabs Tuyet 20mg By Mouth Every Varn, N.P. [address] Day SM Aspirin Adult Low Take One Tablet 30tabs Tuyet Strength By Mouth Every Varn, N.P. [address] Day Mucinex twice a day as 20tabs J20.9 Tuyet 600mg Tablets ER 12HR needed Varn, N.P. 8 Ranitidine HCL Take One Tablet 60tabs Langley 150mg Tablets By Mouth Twice A Varn, N.P. 8 Day Hydrochlorothiazide Take One Tablet 30tabs Langley 25mg By Mouth Every Varn, N.P. 8 Tablets Day Glucose Meter Test Strips for use 3-4 times 100units Langley Advanced daily Varn, N.P. 8 Strips Gabapentin 2 capsules 3 180caps E11.40 Langley 300mg Capsules times Varn, N.P. 8 daily(coming off of) Nebulizer use three times a 1units Langley Kit/Tubing/Mouthpiece day as needed Varn, N.P. 8 Kit Fluoxetine HCL Take One Capsule 30caps F43.23 Langley 20mg Capsules By Mouth Every Varn, N.P. 8 Day Montelukast Sodium Take One Tablet 30tabs J45.41 Langley 10mg Tablets By Mouth Every Varn, N.P. 7 Day Freestyle Lancets test up to 2 300units L[place]y Misc times a day or as Varn, N.P. 7 needed Metformin HCL ER Take 4 Tablets By 120tabs E11.65 Langley 500mg Tablets Mouth With Dinner Varn, N.P. 7 ER 24HR Fluconazole Take 1 Tablet By 2tabs Langley 150mg Tablets Mouth Then May Varn, N.P. 7 Repeat In 3 Days as Needed Simethicone 1 by mouth after 30caps R19.7 Langley 180mg Capsules each meal as Varn, N.P. 7 needed Ventolin HFA Inhale Two Puffs 18units Langley 108(90Base) By Mouth Four Varn, N.P. 6 mcg/Act Aerosol Times A Day as Needed Freestyle Lite Blood check fingerstick 1units E11.65 Langley Glucose Monitoring System three times daily Varn, N.P. 6 or as needed, DX Device - E11.65 Ipratropium inhale the 180units J20.9 Langley [place]/Albuterol Sulfate contents of one Varn, N.P. 6 vial via 0.5-2.5(3)mg/3ML Solution nebulizer three times a day as needed for asthma Nebulizer use three times a 1units J20.9 L[place]y Device day as needed Varn, N.P. 6 Senna Laxative 1 tab by mouth 15tabs K59.00 Noemy 25mg Tablets 1-2 times as MD Graeme 6 needed Compression Stockings knee high 2units I80.02 Langley Misc stockings 20 - 30 Varn, N.P. 6 mm Cetirizine HCL 1 by mouth every 30tabs J30.9 Langley 10mg Tablets day Varn, N.P. 6 Ramipril Take One Capsule 30caps I10 L[place]y 5mg Capsules By Mouth Every Varn, N.P. 5 Day Fluticasone Propionate Thornton One Thornton 16units Langley In Each Nostril Varn, N.P. 4 50mcg/Act Suspension Every Day as Needed Nebulizer J45.909 Cristina Garcia, Compressor/Dualfilter/7' M.DJessica 3 Tubing/Aerosol T/Mthpiece Kit Methocarbamol 1 by mouth twice Unknown 00/00/000 Tablets a day as needed 0 for spasm History Medications Lyrica 1 by mouth every 120caps G62.9 Felice SJessica 09/17/2018 - 25mg night at bedtime Bereket Billingsley 09/17/2018 Capsules for 1 week then 1 twice a day for 1 week then 2 twice a day mdd 4 Pen [place] 1/2" use 1 pen needle 3 100units E11.65 Luis Murdock MD 2018 - times daily with 08/07/2018 29G X 12mm Misc insulin and Ozempic Humulin 70/30 50 units Am, 30 30ml E11.65 Luis Murdock MD 08/02/2018 - Kwikpen units PM, MDD 100 08/07/2018 (70-30)100Unit/ML Supn Ozempic inject 0.25mg 1.500ml E11.40 Luis Murdock MD 07/09/2018 - 0.25or 0.5 weekly for 2 08/02/2018 mg/Dose Solution weeks, then Pen-Inject increase to 0.5mg weekly Novolin N 30 units at 10ml E11.40 Luis Murdock MD 06/21/2018 - bedtime 08/02/2018 100Unit/ML Suspension Novolin R 30 units with 30ml E11.40 Luis Murdock MD 06/21/2018 - meals, MDD 100 08/02/2018 100Unit/ML Solution Byetta 5 mcg Pen 5mcg injection 1.200ml E11.40 Luis Murdock MD 06/21/2018 - twice daily 07/09/2018 5mcg/0.02ML Solution Pen-Inject Doxycycline 1 by mouth twice a 20tabs L08.9 Tuyet Alvarado, 05/03/2018 - Monohydrate day x 10 days N.P. 05/13/2018 100mg Tablets Sulfamethoxazole/Tr one by mouth twice 20tabs Tuyet Alvarado, 12/22/2017 - imethoprim DS a day for 10 days N.P. 01/01/2018 800-160mg Tablets Prednisone 4 tablets by mouth 40tabs Tuyet Alvarado, 11/23/2017 - 10mg for 4 days 3 N.P. 12/09/2017 Tablets tablets by mouth for 4 days 2 tablets by mouth for 4 days 1 tablet by mouth for 4 days Azithromycin two tabs day one, 6tabs Tuyet Alvarado, 11/17/2017 - 250mg one daily till N.P. 11/27/2017 Tablets gone Azithromycin two tabs day one, 6tabs J20.9 Tuyet Alvarado, 11/02/2017 - 250mg one daily till N.P. 11/12/2017 Tablets gone Pantoprazole Sodium 1 by mouth every 30tabs K21.9 Tuyet Alvarado, 2017 - day N.P. 09/04/2017 20mg Tablets Aspirin Low Dose One po daily 30tabs Tuyet Alvarado, 07/28/2017 - N.P. 02/09/2018 81mg Tablets Leg Compression use this every 1units I89.0 Tuyet Alvarado, 07/14/2017 - Machine evening N.P. 09/13/2018 Azithromycin two tabs day one, 6tabs J20.9 Tuyet Castrejoncarlin, 07/14/2017 - 250mg one daily till N.P. 07/24/2017 Tablets gone Benzonatate one by mouth three 30caps J20.9 Tuyet Castrejoncarlin, 07/14/2017 - 100mg times daily as N.P. 07/28/2017 Capsules needed for cough Augmentin one by mouth every 14tabs Tuyet Christiano, 06/02/2017 - 875-125mg 12 hours for 7 N.P. 06/09/2017 Tablets days Doxycycline Hyclate one tablet twice 20caps J01.90 Shane Anderson NP 2017 - daily for 10 days. 06/01/2017 100mg Capsules Prednisone 4 tablets by mouth 40tabs J20.9 Tuyet Castrejoncarlin, 04/13/2017 - 10mg for 4 days 3 N.P. 04/29/2017 Tablets tablets by mouth for 4 days 2 tablets by mouth for 4 days 1 tablet by mouth for 4 days Levaquin 1 by mouth daily 10tabs J20.9 Tuyet Castrejoncarlin, 04/13/2017 - 500mg for 10 days N.P. 04/23/2017 Tablets Xarelto 1 by mouth every 35tabs I82.819 Tuyet Alvarado, 04/04/2017 - 15mg day N.P. 07/28/2017 Tablets Augmentin 1 tablet by mouth 20tabs J01.90 Shane Anderson NP 03/30/2017 - 875-125mg q12 hours for 10 04/05/2017 Tablets days Omeprazole 1 by mouth every 30caps R10.13 Tuyet Alvarado, 03/21/2017 - 20mg day N.P. 08/24/[address] Andujar 1 by mouth every 30tabs I82.819 Karla 02/17/2017 - 10mg day, take with Bereket Rich 04/04/2017 Tablets evening meal Xarelto (Not Taking)1 by 30tabs Karla 02/13/2017 - 15mg mouth every day Bereket Rich 02/14/2017 Tablets Aspirin 1 by mouth every 30tabs Karla 02/13/2017 - 325mg day Bereket Rich 02/17/2017 Tablets Diclofenac Sodium apply 5-10 drops 150ml Tuyet Christiano, 01/11/2017 - to affected area, N.P. 11/02/2017 1.5% Solution 3-4 times a day Diclofenac Sodium Apply 4 Gms qid 100gm Tuyet Christiano, 01/09/2017 - prn for pain N.P. 05/23/2017 1% Gel Ibuprofen by mouth three 90tabs I80.02 Tuyet Alvarado, 12/23/2016 - 800mg times a day as N.P. 04/26/2017 Tablets needed Diclofenac Sodium Apply 0.5 Gm gel 100gm Tuyet Alvarado, 12/23/2016 - bid N.P. 01/09/2017 3% Gel Lidocaine apply externally 35units Tuyet Alvarado, 12/23/2016 - 5% as needed once N.P. 05/23/2017 Ointment daily Doxepin HCL Apply 2 - 3 Gms 135gm Tuyet Christiano, 12/23/2016 - 5% bid _ tid prn for N.P. 11/02/2017 Cream neuropathic pain Benzonatate one by mouth three 60caps Tuyet Christiano, 12/09/2016 - 200mg times daily as N.P. 01/08/2017 Capsules needed for cough Augmentin one by mouth every 20tabs R05 Tuyet Christiano, 12/09/2016 - 875-125mg 12 hours for ten N.P. 12/19/2016 Tablets days Celebrex 1 by mouth every 30caps R07.89 Tuyet Varcarlin, 12/09/2016 - 200mg day N.P. Unknown Capsules Lidocaine-Prilocain apply 10 gm every 30gm Tuyet Christiano, 12/05/2016 - e-Cream Base 3 hours as needed N.P. 12/23/2016 for pain 2.5-2.5% Cream Advair Diskus inhale one dose by 60units J45.909 Tuyet Alvarado, 2016 - mouth twice daily N.P. 08/17/2018 500-50mcg/Dose Aerosol Nicorette Chew 1 piece and 160units F17.218 Tuyet Alvarado, 11/29/2016 - 4mg Gum tuck in your gums N.P. 11/02/2017 as needed. Prednisone 4 tablets by mouth 40tabs J20.9 Tuyet Christiano, 11/11/2016 - 10mg for 4 days 3 N.P. 11/27/2016 Tablets tablets by mouth for 4 days 2 tablets by mouth for 4 days 1 tablet by mouth for 4 days Augmentin one by mouth every 20tabs J20.9 Tuyet Christiano, 11/11/2016 - 875-125mg 12 hours for ten N.P. 11/21/2016 Tablets days Benzonatate one by mouth three 30caps J20.9 Tuyet Varn, 11/11/2016 - 100mg times daily as N.P. 11/25/2016 Capsules needed for cough Freestyle Lite 2 times daily or 300units Tuyet Alvarado, 10/19/2016 - Lancets as needed dx e11.9 N.P. 06/20/2018 Pulmicort Flexhaler 2 puffs twice 1units Tuyet Alvarado, 10/04/2016 - daily N.P. 11/11/2016 180mcg/Act Aerosol Splint Wrist Wear this at night 1units M79.641 Tuyet Alvarado, 10/04/2016 - Brace/Left-Right/Re N.P. 10/05/2016 versible Misc Doxycycline Hyclate 1 tablet by mouth 20tabs Tuyet Alvarado, 09/29/2016 - bid x 10 days N.P. 10/09/2016 100mg Tablets Basaglar Kwikpen inject 84 units 6ml E11.65 Tuyet Alvarado, 09/20/2016 - under the skin N.P. 06/21/2018 100Unit/ML Solution every morning Pen-Inject Augmentin one by mouth every 20tabs J20.9 Tuyet Varn, 08/22/2016 - 875-125mg 12 hours for ten N.P. 09/01/2016 Tablets days Benzonatate one by mouth three 30caps J20.9 Tuyet Varcarlin, 08/22/2016 - 100mg times daily as N.P. 09/06/2016 Capsules needed for cough Prednisone 4 tabs po qd x 4d 60tabs Tuyet Alvarado, 05/12/2016 - 5mg then 3 tabs po qd N.P. 05/28/2016 Tablets x 3d then 2 tabs po qd x 2d then 1 tab po qd x 1 d then 1/2 tab po qd x 2d. Azithromycin two tabs day one, 6tabs J20.9 Tuyet Alvarado, 04/29/2016 - 250mg one daily till N.P. 05/09/2016 Tablets gone Vistaril one by mouth at 30caps F43.23 Tuyet Castrejoncarlin, 03/02/2016 - 50mg bedtime N.P. 11/29/2016 Capsules Lotrisone apply externally 15gm B37.3 Tuyet Castrejoncarlin, 03/02/2016 - 1-0.05% bid-tid N.P. 03/16/2016 Cream Fluoxetine HCL take 1 tablet by 30tabs F43.23 Tuyet Castrejoncarlin, 03/02/2016 - 20mg mouth every day N.P. 05/23/2017 Tablets Fluconazole one by mouth may 2tabs Tuyet Castrejoncarlin, 01/26/2016 - 150mg repeat in 3 days N.P. 04/29/2016 Tablets as needed Azithromycin two tabs day one, 6tabs J20.9 Tuyet Castrejoncarlin, 12/31/2015 - 250mg one daily till N.P. 01/10/2016 Tablets gone Prednisone J20.9 Other Ordering 12/31/2015 - 10mg Provider 01/14/2016 Tablets Azithromycin two tabs day one, 6tabs H66.93 Tuyet Castrejoncarlin, 10/26/2015 - 250mg one daily till N.P. 11/05/2015 Tablets gone Januvia Take One Tablet By 30tabs E11.65 Tuyet Varcarlin, 10/12/2015 - 100mg Mouth Every Day N.P. 06/21/2018 Tablets Tobramycin 1 drop in affected 5ml Tuyet Christiano, 08/25/2015 - 0.3% eye every 4hours x N.P. 09/01/2015 Solution 7 days Nystatin 4 milliliters four 16oz B37.0 Tuyet Varcarlin, 08/17/2015 - times a day, swish N.P. 07/26/2015 720791Dzny/ML and swallow for 14 Suspension days Azithromycin two tabs day one, 6tabs J20.9 Tuyet Castrejoncarlin, 08/17/2015 - 250mg one daily till N.P. 08/27/2015 Tablets gone Fluconazole one by mouth july 2tabs Tuyet Castrejoncarlin, 08/17/2015 - 150mg repeat in 3 days N.P. 01/03/2016 Tablets as needed Prednisone 5tabx 2days,4 30tabs John 08/02/2015 - 10mg [id number] Bereket Rubin 08/17/2015 Tablets [id number] ays,1tabxday. Benzonatate one by mouth three 30caps J20.9 Tuyet Christiano, 07/24/2015 - 200mg times daily as N.P. 09/08/2015 Capsules needed for cough Azithromycin two tabs day one, 6tabs J20.9 Tuyet Christiano, 07/24/2015 - 250mg one daily till N.P. 08/03/2015 Tablets gone Nexium 1 by mouth every 30caps R10.13 Tuyet Alvarado, 06/22/2015 - 20mg day N.P. 03/21/[address] Jose Gupta For weeks 1 to 6: 81units F17.210 Tuyet Alvarado, 2015 - 2mg One lozenge po q 1 N.P. 04/29/2016 Lozenges - 2 hours prn Colace 1 tab by mouth 30caps K59.00 Noemy Graeme, 06/07/2015 - 100mg twice daily MD 07/26/2015 Capsules Ibuprofen 1 by mouth every 6 120tabs I80.02 Tuyet Alvarado, 04/22/2015 - 600mg hours as needed N.P. 12/23/2016 Tablets for pain Nicotine Polacrilex 1 lozenge every 1 216units F17.210 Tuyet Alvarado, - - 2 hours N.P. 04/22/2015 4mg Lozenges Doxycycline Hyclate one po bid x 10 20tabs Tuyet Alvarado, 12/23/2014 - days N.P. 01/02/2015 100mg Tablets Chantix Starting take as directed 1tabs Z72.0 Tuyet Alvarado, 12/17/2014 - Month Charlie (0.5 mg by mouth N.P. 01/19/2015 0.5mg X daily x3 days, 0.5 11 & 1 mg X 42 mg twice a day x 4 Tablets days, then 1 mg twice a day up to three months) Lantus Solostar Use 22 units daily 45ml J20.9 Tuyet Christiano, 12/17/2014 - N.P. 01/19/2015 100Unit/ML Solution Pen-Inject Benzonatate one by mouth three 30caps J20.9 Tuyet Christiano, 12/17/2014 - 100mg times daily as N.P. 12/31/2014 Capsules needed for cough Azithromycin two tabs day one, 6tabs J20.9 Tuyet Christiano, 12/17/2014 - 250mg one daily till N.P. 12/23/2014 Tablets gone Paroxetine HCL 1 by mouth every 30tabs F32.9 Tuyet Alvarado, 05/09/2014 - 40mg day N.P. 08/17/2015 Tablets Azithromycin two tabs day one, 6tabs 466.0 Tuyet Christiano, 05/09/2014 - 250mg one daily till N.P. 05/19/2014 Tablets gone Benzonatate one by mouth three 30caps 466.0 Tuyet Christiano, 05/09/2014 - 100mg times daily as N.P. 05/19/2014 Capsules needed for cough Pen [place] 05/19" use with insulin 90units Tuyet Alvarado, 09/02/2013 - pen subq everyday N.P. 08/07/2018 31G X 5 mm Misc Amoxicillin 1 by mouth twice a 14tabs 382.9 Cristina Garcia, 08/30/2013 - 500mg day M.D. 09/06/2013 Tablets Lantus Solostar inject 66 units sc 15ml E11.65 Tuyet Alvarado, 08/30/2013 - once daily N.P. 02/21/2017 100Unit/ML Solution Pen-Inject Metformin HCL ER take 2 tablets 60tabs E11.65 Tuyet Alvarado, 08/30/2013 - (Osm) once daily N.P. 07/14/2016 1000mg Tablets ER 24HR Amoxicillin/Clavula take 1 tablet 14tabs 381.4 Cristina Garcia, 05/03/2013 - davie Potassium twice daily until M.D. 08/30/2013 gone. 500-125mg Tablets Chantix Starting take as directed QS 305.1 Cristina Garcia, 05/03/2013 - Month Charlie M.D. 05/09/2014 0.5mg X 11 & 1 mg X 42 Tablets Azithromycin two tabs day one, 6tabs 381.4 Cristina Garcia, 04/15/2013 - 250mg one daily till M.D. 05/03/2013 Tablets gone Prednisone as directed 40tabs 466.0 Tuyet Alvarado, 01/22/2013 - 5mg N.P. 04/15/2013 Tablets Fluticasone 2 sprays each 16gm 381.81 Tuyet Alvarado, 01/22/2013 - Propionate nostril daily as N.P. 02/21/2013 needed 50mcg/Act Suspension Azithromycin two tabs day one, 6tabs 493.90 Cristina Garcia, 11/28/2012 - 250mg one daily till M.D. 01/07/2013 Tablets gone Gabapentin 1-2 capsules by 90caps 729.5 Cristina Garcia, 10/29/2012 - 300mg mouth three times M.D. 04/15/2013 Capsules daily Escitalopram take 10mg daily x 60tabs 311 Cristina Garcia, 10/29/2012 - Oxalate 7 days and then M.D. 10/29/2012 10mg increase to 20mg Tablets daily Escitalopram Take 1 Tablet By 30tabs 311 Tuyet Alvarado, 10/29/2012 - Oxalate Mouth Every Day N.P. 05/09/2014 20mg Tablets Nicotrol Inhaler inhale 1 cartridge 168units 305.1 Cristina Garcia, 2012 - inhaled orally M.D. 05/03/2013 10mg Inhaler repeatedly like a cigarette 7 times per day as needed for smoking cessation Chantix Continuing take one tablet by 60tabs 305.1 Cristina Garcia, 2012 - Month Charlie mouth twice a day M.D. 08/17/2012 1mg Tablets Amoxicillin/Potassi take 1 tablet by 20tabs 382.9 Cristina Garcia, 05/21/2012 - um Clavulanate mouth every 12 M.D. 08/17/2012 hours 875-125mg Tablets Chantix Starting take as directed QS 305.1 Cristina Garcia, 05/21/2012 - Month Charlie M.D. 06/25/2012 0.5mg X 11 & 1 mg X 42 Tablets Proair HFA two puffs every 4 1units J45.909 Tuyet Christiano, 05/21/2012 - hours as needed N.P. 09/22/2016 108(90Base) mcg/Act for wheeze and Aerosol chest tightness. Advair Diskus 1 puff by mouth 14units J45.909 Tuyet Christiano, 05/21/2012 - twice a day N.P. 11/29/2016 250-50mcg/Dose Aerosol Freestyle Lite Test use as directed 100units Tuyet Alvarado, 04/12/2012 - Strip every day or as N.P. 08/07/2017 needed dx: 250.02 Freestyle Lite once daily or as 100units Cristina Garcia, 04/12/2012 - Lancets needed M.D. 10/19/2016 Augmentin Take 1 tablet by 20tabs Cristina Garcia, 04/06/2012 - 500-125mg mouth every 12 M.D. 05/21/2012 Tablets hours Acetaminophen/Codei 1 tab po every 4-6 30tabs 521.08 Cristina Garcia, 2012 - ne #3 hours as needed M.D. 05/21/2012 300-30mg for pain Tablets Clindamycin HCL take 2 capsules by 60caps Cristina Garcia, 04/04/2012 - mouth every 8 M.D. 04/06/2012 300mg Capsules hours for 10 days Metformin HCL 1 po bid 60tabs 250.02 Cristina Garcia, 03/28/2012 - 500mg M.D. 05/21/2012 Tablets Nicorette Starter Chew one piece as 100units 305.1 Cristina Garcia, 2012 - Kit needed. M.D. 08/17/2012 2mg Gum Oxycodone/Acetamino take 1 tablet 10caps 521.08 Cristina Garcia, 03/14/2012 - phen every 8hrs as M.D. 04/06/2012 5-500mg needed for acute Capsules pain Fluticasone 1 squirts each 1units Constance Larkin, 06/13/2011 - Propionate nostril qd M.D. 03/28/2012 50mcg/Act Suspension Fexofenadine HCL 1 po qd 90tabs 477.9 Constance Beltranan, 05/12/2011 - M.D. 03/28/2012 180mg Tablets Nasonex 1 squirt 1units 477.9 Constance Larkin, 05/12/2011 - 50mcg/Act intranasal every M.D. 03/28/2012 Suspension day morning Metformin HCL 1 po bid 180tabs 250.02 Cristina Garcia, 05/12/2011 - M.D. 08/30/2013 1000mg Tablets Cephalexin Unknown - 500mg 05/03/2018 Capsules Benzonatate one by mouth three Unknown - 100mg times daily as 12/09/2016 Capsules needed for cough Amoxicillin 1 tab by mouth Unknown - 500mg twice a day times 12/31/2015 Tablets 7 days Januvia take 1 tablet by 30tabs Tuyet Alvarado, - 100mg mouth every day N.P. 06/11/2015 Tablets Vitamin B-12 CR 1 po qd Unknown - 12/17/2014 1000mcg Tablets ER Vitamin C CR 1 po qd Unknown - 1000mg 01/19/2015 Tablets ER Hydrocodone/Acetami one or two po 30tabs Unknown - nophen every 4 - 6 hours 08/17/2012 5-500mg prn pain Tablets Albuterol Sulfate 1 vial via 100units Tuyet Alvarado, - nebulizer 4 times N.P. 11/29/2016 (2.5mg/3ML) 0.083% daily as needed Nebulizer Ibuprofen by mouth three 30tabs Cristina Garcia, - 800mg times a day as M.D. 09/12/2013 Tablets needed Nasonex 2 sprays to each 1units Unknown - 50mcg/Act nostril twice 05/16/2011 Suspension daily Ipratropium [place] instill 2 sprays 30ml Unknown - in each nostril 03/28/2012 0.03% Solution twice a day Albuterol 2 puffs po qid prn 3units 493.90 Cristina Garcia, - 90mcg/Act M.D. 05/21/2012 Aerosol Lisinopril 1 po qd 30tabs Cristina Garcia, - 5mg M.D. 08/30/2013 Tablets Metformin HCL ER 1 po qd 30tabs Unknown - 03/14/2012 500mg Tablets ER 24HR Sertraline HCL 1 po qd 90tabs Unknown - 50mg 03/28/2012 Tablets Loratadine 1 po qd Unknown - 10mg 03/28/2012 Tablets Medications Administered in Office Medication SIG Qnty Indications Ordering Provider Date Records Fee Carlin Breen.Lori 08/29/2018 Injection Immunizations CPT Code Status Date Vaccine Lot # [id number] Given 10/04/2016 Tdap - Tetanus/Diptheria/Acellular Pertussis [id number] Given 01/20/2015 Flu Vaccine Split Virus Preservative Free For [id number] Indiv [id number] Older [id number] Given 05/21/2012 Pneumonia Vaccine [id number] Vital Signs Date Vital Result Comment 09/21/2018 8:58am Height 62.75 inches 5'2.75" Weight 313.00 lb Heart Rate 86 /min BP Systolic 124 mmHg BP Diastolic 82 mmHg Respiratory Rate 18 /min O2 % BldC Oximetry 97 % BMI (Body Mass Index) 55.9 kg/m2 09/17/2018 9:39am Height 62.75 inches 5'2.75" Weight 311.25 lb Heart Rate 80 /min BP Systolic 122 mmHg BP Diastolic 86 mmHg BMI (Body Mass Index) 55.6 kg/m2 09/13/2018 2:51pm Height 62.75 inches 5'2.75" Weight 313.00 lb Heart Rate 82 /min BP Systolic 131 mmHg BP Diastolic 79 mmHg O2 % BldC Oximetry 97 % BMI (Body Mass Index) 55.9 kg/m2 08/17/2018 10:21am Height 62.75 inches 5'2.75" Weight 319.50 lb Heart Rate 81 /min BP Systolic 120 mmHg BP Diastolic 85 mmHg Body Temperature 97.3 F O2 % BldC Oximetry 96 % BMI (Body Mass Index) 57.0 kg/m2 08/02/2018 8:37am Height 62.75 inches 5'2.75" Weight 313.00 lb w/ shoes Heart Rate 94 /min BP Systolic Sitting 139 mmHg BP Diastolic Sitting 72 mmHg BMI (Body Mass Index) 55.9 kg/m2 06/21/2018 10:29am Height 62.75 inches 5'2.75" Weight 322.00 lb w shoes Heart Rate 80 /min BP Systolic Sitting 123 mmHg BP Diastolic Sitting 81 mmHg BMI (Body Mass Index) 57.5 kg/m2 05/03/2018 11:11am Height 62.75 inches 5'2.75" Weight 316.00 lb Heart Rate 88 /min BP Systolic 116 mmHg BP Diastolic 66 mmHg Body Temperature 98.3 F O2 % BldC Oximetry 97 % BMI (Body Mass Index) 56.4 kg/m2 12/19/2017 1:30pm Height 63 inches 5'3" Weight 315.00 lb Heart Rate 91 /min BP Systolic 122 mmHg BP Diastolic 76 mmHg Body Temperature 98.7 F O2 % BldC Oximetry 98 % BMI (Body Mass Index) 55.8 kg/m2 11/02/2017 10:45am Height 63 inches 5'3" Weight 311.00 lb Heart Rate 86 /min BP Systolic Sitting 127 mmHg BP Diastolic Sitting 77 mmHg Body Temperature 97.6 F O2 % BldC Oximetry 95 % BMI (Body Mass Index) 55.1 kg/m2 09/28/2017 12:51pm Height 63 inches 5'3" Weight 315.00 lb Heart Rate 88 /min BP Systolic Sitting 108 mmHg BP Diastolic Sitting 84 mmHg Respiratory Rate 14 /min O2 % BldC Oximetry 98 % BMI (Body Mass Index) 55.8 kg/m2 Neck Circumference in inches 16.5 09/13/2017 2:15pm Height 63 inches 5'3" Weight 329.75 lb Heart Rate 93 /min BP Systolic 122 mmHg BP Diastolic 66 mmHg Body Temperature 97.5 F O2 % BldC Oximetry 97 % BMI (Body Mass Index) 58.4 kg/m2 08/24/2017 9:33am Weight 318.00 lb Heart Rate 103 /min BP Systolic 122 mmHg BP Diastolic 70 mmHg Body Temperature 98.0 F O2 % BldC Oximetry 97 % 08/07/2017 11:00am Weight 324.00 lb Heart Rate 88 /min BP Systolic 100 mmHg BP Diastolic 60 mmHg Body Temperature 97.6 F O2 % BldC Oximetry 96 % 07/14/2017 1:16pm Weight 329.75 lb Heart Rate 100 /min BP Systolic 120 mmHg BP Diastolic 68 mmHg Body Temperature 98.3 F O2 % BldC Oximetry 95 % 05/22/2017 1:59pm Weight 313.50 lb Heart Rate 83 /min BP Systolic 118 mmHg BP Diastolic 64 mmHg Body Temperature 98.4 F O2 % BldC Oximetry 98 % 04/13/2017 11:59am Weight 318.75 lb Heart Rate 84 /min BP Systolic 96 mmHg BP Diastolic 62 mmHg Body Temperature 98.3 F O2 % BldC Oximetry 97 % 03/30/2017 8:50am Weight 312.00 lb Heart Rate 72 /min BP Systolic 132 mmHg BP Diastolic 70 mmHg Body Temperature 97.5 F O2 % BldC Oximetry 98 % 02/21/2017 8:12am Height 61.5 inches 5'1.50" Weight 312.00 lb Heart Rate 79 /min BP Systolic Sitting 120 mmHg BP Diastolic Sitting 84 mmHg Body Temperature 97.0 F O2 % BldC Oximetry 97 % BMI (Body Mass Index) 58.0 kg/m2 02/14/2017 8:42am Weight 313.25 lb Heart Rate 86 /min BP Systolic 140 mmHg BP Diastolic 80 mmHg Body Temperature 95.6 F O2 % BldC Oximetry 98 % 11/29/2016 10:17am Weight 314.00 lb Heart Rate 82 /min BP Systolic 130 mmHg BP Diastolic 70 mmHg Body Temperature 97.4 F O2 % BldC Oximetry 98 % 11/11/2016 10:49am Height 62.5 inches 5'2.50" Weight 301.00 lb Heart Rate 88 /min BP Systolic 118 mmHg BP Diastolic 70 mmHg Body Temperature 97.7 F O2 % BldC Oximetry 98 % BMI (Body Mass Index) 54.2 kg/m2 10/31/2016 10:22am Height 62.5 inches 5'2.50" Weight 301.00 lb BP Systolic 130 mmHg BP Diastolic 74 mmHg Body Temperature 97.8 F BMI (Body Mass Index) 54.2 kg/m2 10/04/2016 12:01pm Weight 307.50 lb Heart Rate 75 /min BP Systolic 104 mmHg BP Diastolic 60 mmHg Body Temperature 97.4 F O2 % BldC Oximetry 98 % 08/22/2016 1:48pm Weight 306.00 lb Heart Rate 91 /min BP Systolic 116 mmHg BP Diastolic 74 mmHg Body Temperature 98.5 F O2 % BldC Oximetry 97 % 04/29/2016 12:50pm Weight 288.00 lb Heart Rate 90 /min BP Systolic Sitting 138 mmHg BP Diastolic Sitting 72 mmHg Respiratory Rate 16 /min Body Temperature 98.4 F O2 % BldC Oximetry 98 % 03/02/2016 11:23am Weight 288.00 lb with shoes Heart Rate 94 /min BP Systolic Sitting 140 mmHg BP Diastolic Sitting 94 mmHg Body Temperature 97.9 F O2 % BldC Oximetry 98 % 12/31/2015 10:45am Weight 291.00 lb Heart Rate 88 /min BP Systolic Sitting 138 mmHg BP Diastolic Sitting 84 mmHg Respiratory Rate 15 /min Body Temperature 98.5 F O2 % BldC Oximetry 98 % 10/26/2015 9:49am Weight 299.50 lb Heart Rate 77 /min BP Systolic Sitting 133 mmHg BP Diastolic Sitting 77 mmHg Body Temperature 98.2 F O2 % BldC Oximetry 99 % 08/17/2015 11:32am Weight 296.00 lb with shoes Heart Rate 113 /min BP Systolic Sitting 130 mmHg BP Diastolic Sitting 70 mmHg Body Temperature 98.8 F O2 % BldC Oximetry 99 % 07/24/2015 10:30am Weight 293.00 lb Heart Rate 90 /min BP Systolic Sitting 140 mmHg BP Diastolic Sitting 90 mmHg Respiratory Rate 15 /min O2 % BldC Oximetry 98 % 06/11/2015 2:49pm Weight 291.00 lb Heart Rate 78 /min BP Systolic Sitting 124 mmHg BP Diastolic Sitting 76 mmHg Body Temperature 98.2 F 04/22/2015 9:41am Height 61.5 inches 5'1.50" Weight 310.50 lb Heart Rate 77 /min BP Systolic Sitting 130 mmHg BP Diastolic Sitting 74 mmHg Body Temperature 97.5 F O2 % BldC Oximetry 98 % BMI (Body Mass Index) 57.7 kg/m2 01/20/2015 11:22am Height 61.5 inches 5'1.50" Weight 298.50 lb Heart Rate 79 /min BP Systolic Sitting 134 mmHg BP Diastolic Sitting 86 mmHg Body Temperature 96.8 F O2 % BldC Oximetry 98 % BMI (Body Mass Index) 55.5 kg/m2 12/17/2014 11:31am Height 61.5 inches 5'1.50" Weight 301.00 lb Heart Rate 99 /min BP Systolic 146 mmHg BP Diastolic 90 mmHg O2 % BldC Oximetry 99 % BMI (Body Mass Index) 55.9 kg/m2 05/09/2014 1:08pm Weight 318.00 lb Heart Rate 78 /min BP Systolic Sitting 120 mmHg BP Diastolic Sitting 74 mmHg Body Temperature 97.7 F 09/12/2013 10:22am Weight 321.50 lb Heart Rate 84 /min BP Systolic Sitting 122 mmHg BP Diastolic Sitting 78 mmHg Body Temperature 97.8 F 08/30/2013 11:40am Weight 317.00 lb Heart Rate 88 /min BP Systolic Sitting 128 mmHg BP Diastolic Sitting 80 mmHg 05/03/2013 10:26am Weight 317.00 lb Heart Rate 87 /min BP Systolic Sitting 126 mmHg BP Diastolic Sitting 80 mmHg Respiratory Rate 18 /min Body Temperature 97.6 F O2 % BldC Oximetry 98 % 04/15/2013 9:53am Weight 321.00 lb Heart Rate 80 /min BP Systolic Sitting 124 mmHg BP Diastolic Sitting 82 mmHg Body Temperature 98.0 F O2 % BldC Oximetry 98 % 01/22/2013 11:03am Weight 318.00 lb Heart Rate 80 /min BP Systolic Sitting 130 mmHg BP Diastolic Sitting 84 mmHg Body Temperature 98.3 F 01/07/2013 9:50am Weight 328.00 lb Heart Rate 79 /min BP Systolic Sitting 130 mmHg BP Diastolic Sitting 80 mmHg Body Temperature 97.5 F O2 % BldC Oximetry 98 % 11/28/2012 10:55am Weight 316.00 lb Heart Rate 81 /min BP Systolic Sitting 112 mmHg BP Diastolic Sitting 80 mmHg Body Temperature 97.0 F 11/14/2012 1:49pm Weight 315.00 lb Heart Rate 80 /min BP Systolic Sitting 124 mmHg BP Diastolic Sitting 80 mmHg 10/29/2012 8:41am Weight 319.00 lb Heart Rate 80 /min BP Systolic Sitting 124 mmHg BP Diastolic Sitting 78 mmHg 08/17/2012 11:04am Weight 321.00 lb Heart Rate 80 /min BP Systolic Sitting 128 mmHg BP Diastolic Sitting 84 mmHg 06/25/2012 10:41am Weight 324.00 lb Heart Rate 80 /min BP Systolic Sitting 122 mmHg BP Diastolic Sitting 84 mmHg 05/21/2012 9:44am Height 63 inches 5'3" Weight 330.00 lb Heart Rate 110 /min BP Systolic Sitting 140 mmHg BP Diastolic Sitting 80 mmHg Body Temperature 98.1 F O2 % BldC Oximetry 98 % BMI (Body Mass Index) 58.5 kg/m2 03/28/2012 2:20pm Height 63 inches 5'3" Weight 326.00 lb Heart Rate 76 /min BP Systolic Sitting 130 mmHg BP Diastolic Sitting 80 mmHg BMI (Body Mass Index) 57.7 kg/m2 03/14/2012 2:41pm Height 63 inches 5'3" Weight 326.00 lb Heart Rate 80 /min BP Systolic Standing 130 mmHg lg BP Diastolic Standing 80 mmHg lg BMI (Body Mass Index) 57.7 kg/m2 01/18/2012 9:42am Height 63 inches 5'3" Weight 321.00 lb Heart Rate 70 /min BP Systolic Sitting 126 mmHg BP Diastolic Sitting 82 mmHg BMI (Body Mass Index) 56.9 kg/m2 05/12/2011 8:55am Height 63 inches 5'3" Weight 330.00 lb Heart Rate 72 /min BP Systolic Sitting 138 mmHg l BP Diastolic Sitting 68 mmHg l BMI (Body Mass Index) 58.5 kg/m2 Results Test Date Facility Test Result H/L Range Note Lipid Profile 09/17/2018 [facility] Triglycerides 173 mg/dL 1 (Trig/Chol/HDL) [place] [address] [phone] Cholesterol 128 mg/dL 2 HDL Cholesterol 34.8 mg/dL 3 LDL Cholesterol 59 mg/dL 4 Liver Function 09/17/2018 [facility] Total Protein 6.5 g/dL N 6.4-8.[address] [place] [address] [phone] Albumin 3.8 g/dL N 3.2-5.2 Globulin 2.7 g/dL N 2-4 Albumin/Globulin Ratio 1.4 N 1-3 Total Bilirubin 0.50 mg/dL N 0.2-1.0 Direct Bilirubin 0.10 mg/dL N 0.03-0.18 Indirect Bilirubin 0.4 mg/dL N 0.3-1.0 Alkaline Phosphatase 91 U/L N 34-104 Alt 14 U/L N 7-52 Ast 14 U/L N 13-39 Laboratory test 09/17/2018 [facility] Folic Acid 11.94 ng/mL >3.[address] (Folate) [place] [address] [phone] Vitamin B12 398 pg/mL N 180-914 6 Lyme Screen W/ Reflex To WB Negative Negative 7 Methylmalonic Acid Mma 0.20 nmol/mL <=0.40 8 Protein 09/17/2018 [facility] Total 6.5 g/dL 6.3 - Electrophoresis [address] Protein(Pep) 7.9 [place] [address] [phone] Albumin 3.0 g/dL Abnormal 3.4-4.7 Alpha-1 Globulin 0.3 g/dL 0.1-0.3 Alpha-2 Globulin 1.2 g/dL Abnormal 0.6-1.0 Beta Globulin 1.2 g/dL 0.7-1.2 Gamma Globulin 0.9 g/dL 0.6-1.6 Albumin/Globulin Ratio 0.85 Impression See Comment 9 Lipid Panel - 08/17/2018 [facility] Creatine 172 U/L N 10-[address] Kinase(CK) [place] [address] [phone] Comp Metabolic 08/17/2018 [facility] Sodium 138 N 135-[address] mmol/[place] [address] [phone] Potassium 4.5 mmol/L N 3.5-5.0 Chloride 103 mmol/L N 101-111 Co2 Carbon Dioxide 28 mmol/L N 22-32 Anion Gap 7 mmol/L N 2-11 Glucose 185 mg/dL High 70-100 Blood Urea Nitrogen 16 mg/dL N 6-24 Creatinine 0.77 mg/dL N 0.51-0.95 BUN/Creatinine Ratio 20.8 High 8-20 Calcium 9.2 mg/dL N 8.6-10.3 Total Protein 6.7 g/dL N 6.4-8.9 Albumin 3.7 g/dL N 3.2-5.2 Globulin 3.0 g/dL N 2-4 Albumin/Globulin Ratio 1.2 N 1-3 Total Bilirubin 0.40 mg/dL N 0.2-1.0 Alkaline Phosphatase 93 U/L N 34-104 Alt 17 U/L N 7-52 Ast 14 U/L N 13-39 Egfr Non- 83.5 >60 Egfr 101.0 >60 10 Lipid Profile 08/17/2018 [facility] Triglycerides 180 mg/dL 11 (Trig/Chol/HDL) [address] [place], [place] [id number] [phone] Cholesterol 209 mg/dL 12 HDL Cholesterol 42.0 mg/dL 13 LDL Cholesterol 131 mg/dL 14 Liver 08/17/2018 [facility] Direct Bilirubin 0.00 Low 0.03- 0.18 Function mg/[place] [address] [phone] Lipid Profile 08/02/2018 [facility] Triglycerides 208 mg/dL 15 (Trig/Chol/HD DRIVE L) [place] [address] [phone] Cholesterol 200 mg/dL 16 HDL Cholesterol 38.1 mg/dL 17 LDL Cholesterol 120 mg/dL 18 Comp Metabolic Panel 08/02/2018 [facility] Sodium 136 mmol/L N 135-145 [place] [address] [phone] Potassium 4.4 mmol/L N 3.5-5.0 Chloride 103 mmol/L N 101-111 Co2 Carbon Dioxide 25 mmol/L N 22-32 Anion Gap 8 mmol/L N 2-11 Glucose 232 mg/dL High 70-100 Blood Urea Nitrogen 22 mg/dL N 6-24 Creatinine 0.86 mg/dL N 0.51-0.95 BUN/Creatinine Ratio 25.6 High 8-20 Calcium 9.0 mg/dL N 8.6-10.3 Total Protein 6.9 g/dL N 6.4-8.9 Albumin 3.9 g/dL N 3.2-5.2 Globulin 3.0 g/dL N 2-4 Albumin/Globulin Ratio 1.3 N 1-3 Total Bilirubin 0.60 mg/dL N 0.2-1.0 Alkaline Phosphatase 101 U/L N 34-104 Alt 18 U/L N 7-52 Ast 17 U/L N 13-39 Egfr Non- 73.8 >60 Egfr 89.4 >60 19 Laboratory test 08/02/2018 [facility] Hemoglobin A1c 9.0 % High 4.0-5.6 20 finding (Glyco HGB) [place] [address] [phone] Laboratory test 06/21/2018 [facility] TSH (Thyroid 2.14 N 0.34 -5.[address] Stim Horm) mcIU/[place] [address] [phone] Comp Metabolic 06/21/2018 [facility] Sodium 137 N 135-[address] mmol/[place] [address] [phone] Potassium 4.2 mmol/L N 3.5-5.0 Chloride 101 mmol/L N 101-111 Co2 Carbon Dioxide 26 mmol/L N 22-32 Anion Gap 10 mmol/L N 2-11 Glucose 146 mg/dL High 70-100 Blood Urea Nitrogen 17 mg/dL N 6-24 Creatinine 0.71 mg/dL N 0.51-0.95 BUN/Creatinine Ratio 23.9 High 8-20 Calcium 9.3 mg/dL N 8.6-10.3 Total Protein 6.6 g/dL N 6.4-8.9 Albumin 3.8 g/dL N 3.2-5.2 Globulin 2.8 g/dL N 2-4 Albumin/Globulin Ratio 1.4 N 1-3 Total Bilirubin 0.40 mg/dL N 0.2-1.0 Alkaline Phosphatase 93 U/L N 34-104 Alt 22 U/L N 7-52 Ast 19 U/L N 13-39 Egfr Non- 92.1 >60 Egfr 111.5 >60 21 Laboratory test 06/21/2018 [facility] C-Peptide 2.2 ng/mL 1.1 - 4.4 [address] [place] [address] [phone] Lipid Profile 06/21/2018 [facility] Triglycerides 186 mg/dL 23 (Trig/Chol/HDL) [address] [place] [address] [phone] Cholesterol 211 mg/dL 24 HDL Cholesterol 44.1 mg/dL 25 LDL Cholesterol 130 mg/dL 26 Laboratory test 06/21/2018 [facility] Cortisol 5.08 [address] g/[place] [address] [phone] Laboratory test 05/03/2018 [facility] Hemoglobin A1c 11.1 High 5-7 finding Laboratory test 11/02/2017 [facility] Hemoglobin A1c 14 High 5-7 finding Urine 11/02/2017 [facility] Ur Microalbumin 46.[address] (mg/L) [place] [address] [phone] Urine Creatinine 86.59 mg/dL Urine Microalbumin/Creatinine 53.1 High <31 Laboratory 08/02/2017 [facility] Hemoglobin 11.2 % High 4.0- 5.6 28 test finding [address] A1c ([place] [address] HGB) [phone] Laboratory 04/13/2017 [facility] Rapid SEE RESULT 29, test finding [address] Influenza A B BELOW 30 [place] [address] Antigen [phone] Rapid 04/13/2017 [facility] Influenza A NEGATIVE Negative 31 Influenza A & [address] [place] [place] [address] [phone] Influenza B Molecular NEGATIVE Negative Laboratory test 02/21/2017 [facility] Cytology SEE RESULT 32, [address] [place] [address] [phone] Laboratory test 02/21/2017 [facility] Hemoglobin A1c 12.9 High 5-7 finding CBC Auto Diff 02/11/2017 [facility] White Blood 12.2 High 3.5 - [address] Count 10^3/uL 10.8 [place] [address] [phone] Red Blood Count 4.82 10^6/uL N 4.0-5.4 Hemoglobin 13.4 g/dL N 12.0-16.0 Hematocrit 40 % N 35-47 Mean Corpuscular Volume 83 fL N 80-97 Mean Corpuscular Hemoglobin 28 pg N 27-31 Mean Corpuscular HGB Conc 33 g/dL N 31-36 Red Cell Distribution Width 14 % N 10.5-15 Platelet Count 314 10^3/uL N 150-450 Mean Platelet Volume 8 um3 N 7.4-10.4 Abs Neutrophils 7.4 10^3/uL N 1.5-7.7 Abs Lymphocytes 3.4 10^3/uL N 1.0-4.8 Abs Monocytes 0.7 10^3/uL N 0-0.8 Abs Eosinophils 0.5 10^3/uL N 0-0.6 Abs Basophils 0.1 10^3/uL N 0-0.2 Abs Nucleated RBC 0.01 10^3/uL Granulocyte % 60.9 % N 38-83 Lymphocyte % 28.0 % N 25-47 Monocyte % 6.0 % N 1-9 Eosinophil % 4.1 % N 0-6 Basophil % 1.0 % N 0-2 Nucleated Red Blood Cells % 0.1 Laboratory test 02/11/2017 [facility] D Dimer 533 ng/mL High Less [address] Quantitative Than 230 [place] [address] [phone] Comp Metabolic 02/11/2017 [facility] Sodium 132 Low 133-[address] mmol/[place] [address] [phone] Potassium 3.9 mmol/L N 3.5-5.0 Chloride 98 mmol/L Low 101-111 Co2 Carbon Dioxide 26 mmol/L N 22-32 Anion Gap 8 mmol/L N 2-11 Glucose 313 mg/dL High 70-100 Blood Urea Nitrogen 20 mg/dL N 6-24 Creatinine 0.86 mg/dL N 0.51-0.95 BUN/Creatinine Ratio 23.3 High 8-20 Calcium 8.9 mg/dL N 8.6-10.3 Total Protein 6.6 g/dL N 6.4-8.9 Albumin 3.6 g/dL N 3.2-5.2 Globulin 3.0 g/dL N 2-4 Albumin/Globulin Ratio 1.2 N 1-3 Total Bilirubin 0.50 mg/dL N 0.2-1.0 Alkaline Phosphatase 108 U/L High 34-104 Alt 19 U/L N 7-52 Ast 14 U/L N 13-39 Egfr Non- 74.2 >60 Egfr 95.5 >60 35 Laboratory test 02/11/2017 [facility] C Reactive 24.63 High < 5.00 [address] Protein mg/[place] [address] [phone] Urine 10/04/2016 [facility] Urine 145.66 N [address] Creatinine mg/[place] [address] [phone] Ur Microalbumin (mg/L) < 15.0 mg/L N Urine Microalbumin/Creatinine TNP ug/mg N <31 38 Laboratory test 10/04/2016 [facility] Hemoglobin A1c 9.8 High 5-7 finding Laboratory test 08/22/2016 [facility] Hemoglobin A1c 11.3 High 5-7 finding GC/Chlamydia 03/02/2016 [facility] Chlamydia Negative N Negative 39 [address] [place] [address] [phone] Neisseria gonorrhoeae (GC) Rna Negative N Negative Laboratory 03/02/2016 [facility] HIV 1&2 AB Nonreactive N Nonreactive 40 test finding [address] [place] [address] Referred [phone] Syphillis Igg W/Reflex RPR Nonreactive N Nonreactive 41 Ua Routine 12/31/2015 [facility] Ua Specific Maurice 1.005 Ua PH 6 Ua Color yellow Ua Appera clear Ua WBC neg Ua Protein neg Ua Glucose 1000+ Ua Ketones neg Ua Bilirubin neg Ua Urobilinogen neg Ua Nitrite neg Ua Occult Blood small Laboratory test 10/26/2015 [facility] Hemoglobin A1c 9.1 High 5-7 finding Laboratory test 07/24/2015 [facility] Hemoglobin A1c 10.6 High 5-7 finding Laboratory test 06/06/2015 [facility] Point of Care 320 mg/dL High 74-106 [address] Glucose [place], [place] [id number] [phone] Urine Culture And 06/06/2015 [facility] Urine Culture SEE RESULT [address] [place] [address] [phone] Comp Metabolic 06/06/2015 [facility] Sodium 131 mmol/L Low 133 -[address] [place], [place] [id number] [phone] Potassium 4.0 mmol/L N 3.5-5.0 Chloride 101 mmol/L N 101-111 Co2 Carbon Dioxide 23 mmol/L N 22-32 Anion Gap 7 mmol/L N 2-11 Glucose 343 mg/dL High 70-100 Blood Urea Nitrogen 18 mg/dL N 6-24 Creatinine 0.90 mg/dL N 0.51-0.95 BUN/Creatinine Ratio 20.0 N 8-20 Calcium 8.7 mg/dL N 8.6-10.3 Total Protein 6.1 g/dL Low 6.4-8.9 Albumin 3.4 g/dL N 3.2-5.2 Globulin 2.7 g/dL N 2-4 Albumin/Globulin Ratio 1.3 N 1-3 Total Bilirubin 0.40 mg/dL N 0.2-1.0 Alkaline Phosphatase 74 U/L N 34-104 Alt 22 U/L N 7-52 Ast 42 U/L High 13-39 Egfr Non- 71.3 N >60 Egfr 91.6 N >60 44 Urinalysis Profile 06/06/2015 [facility] Urine Color Yellow N [address] [place] [address] [phone] Urine Appearance Clear N Urine Specific Maurice 1.036 High 1.010-1.030 Urine pH 5.0 N 5-9 Urine Urobilinogen Negative N Negative Urine Ketones Trace Abnormal Negative Urine Protein Negative N Negative Urine Leukocytes Negative N Negative Urine Blood Negative N Negative Urine Nitrite Negative N Negative Urine Bilirubin Negative N Negative Urine Glucose 3+(>=500 mg/dL) Abnormal Negative CBC Auto 06/06/2015 [facility] White Blood 16.3 10^3/uL High 3.5-10.[address] [place] [address] [phone] Red Blood Count 5.44 10^6/uL High 4.0-5.4 Hemoglobin 15.5 g/dL N 12.0-16.0 Hematocrit 46 % N 35-47 Mean Corpuscular Volume 84 fL N 80-97 Mean Corpuscular Hemoglobin 28 pg N 27-31 Mean Corpuscular HGB Conc 34 g/dL N 31-36 Red Cell Distribution Width 13 % N 10.5-15 Platelet Count 327 10^3/uL N 150-450 Mean Platelet Volume 8 um3 N 7.4-10.4 Abs Neutrophils 13.1 10^3/uL High 1.5-7.7 Abs Lymphocytes 2.0 10^3/uL N 1.0-4.8 Abs Monocytes 0.8 10^3/uL N 0-0.8 Abs Eosinophils 0.1 10^3/uL N 0-0.6 Abs Basophils 0.3 10^3/uL High 0-0.2 Abs Nucleated RBC 0 10^3/uL N Granulocyte % 80.5 % N 38-83 Lymphocyte % 12.1 % Low 25-47 Monocyte % 5.0 % N 1-9 Eosinophil % 0.8 % N 0-6 Basophil % 1.6 % N 0-2 Nucleated Red Blood Cells % 0 N Laboratory test 04/22/2015 [facility] Hemoglobin A1c 9.6 High 5-7 finding GC/Chlamydia 01/20/2015 [facility] Chlamydia Negative N Negative Amplified Rna [address] [place] [address] [phone] Neisseria gonorrhoeae (GC) Rna Negative N Negative 45 Laboratory test 01/20/2015 [facility] Hemoglobin A1c 12.0 High 5-7 finding Laboratory test 10/01/2014 [facility] Wound SEE RESULT 46, [address] Culture/[place] [address] [phone] Urine Microalbumin 06/11/2014 [facility] Ur Microalbumin 20.0 mg /L N Random [address] (mg/L) [place] [address] [phone] Urine Creatinine 75.70 mg/dL N Urine Microalbumin/Creatinine 26.4 N Less Than 31 Comp Metabolic Panel 06/11/2014 [facility] Sodium 136 mmol/L N 133-[address] [place] [address] [phone] Potassium 4.5 mmol/L N 3.5-5.0 Chloride 103 mmol/L N 101-111 Co2 Carbon Dioxide 27 mmol/L N 22-32 Anion Gap 6 mmol/L N 2-11 Glucose 324 mg/dL High 70-100 Blood Urea Nitrogen 12 mg/dL N 6-24 Creatinine 0.61 mg/dL N 0.51-0.95 BUN/Creatinine Ratio 19.7 N 8-20 Calcium 9.3 mg/dL N 8.6-10.3 Total Protein 6.3 g/dL Low 6.4-8.9 Albumin 3.7 g/dL N 3.2-5.2 Globulin 2.6 g/dL N 2-4 Albumin/Globulin Ratio 1.4 N 1-3 Total Bilirubin 0.30 mg/dL N 0.2-1.0 Alkaline Phosphatase 88 U/L N 34-104 Alt 26 U/L N 7-52 Ast 21 U/L N 13-39 Egfr Non- 112.3 N >60 Egfr 144.4 N >60 48 Lipid Profile 06/11/2014 [facility] Triglycerides 318 mg/dL N 49 (Trig/Chol/HDL) [address] [place] [address] [phone] Cholesterol 211 mg/dL N 50 HDL Cholesterol 44.2 mg/dL N 51 LDL Cholesterol 103 mg/dL N 52 Laboratory test 05/09/2014 [facility] Hemoglobin A1c 13.5 High 5-7 finding Laboratory test 08/30/2013 [facility] Hemoglobin A1c 11.1 High 5-7 finding Lipid Profile 04/26/2013 [facility] Triglycerides 241 mg/dL 53 (Trig/Chol/HDL) [address] [place] [address] [phone] Cholesterol 187 mg/dL 54 HDL Cholesterol 37.2 mg/dL 55 LDL Cholesterol 102 mg/dL 56 Laboratory test 04/26/2013 [facility] Hemoglobin 14.4 g/dL 12.0-16.[address] [place] [address] [phone] Hemoglobin A1c 10.2 % High Less than 6.0 57 Comp Metabolic Panel 04/26/2013 [facility] Sodium 138 mmol/L 133-[address] [place] [address] [phone] Potassium 4.8 mmol/L 3.7-5.6 Chloride 104 mmol/L [...] Egfr Non- 96.4 >60 Egfr 123.9 >60 58 Urine Microalbumin 04/26/2013 [facility] Ur Microalbumin 22.0 mg /dL <30 [address] (mg/L) [place] [address] [phone] Urine Creatinine 113.88 mg/dL Urine Microalbumin/Creatinine 19.3 Less Than 31 Rapid Influenza A 03/06/2013 [facility] Rapid Influenza (SEE NOTE) 60 B [address] A B Antigen [place], [place] [address] [phone] Laboratory test 11/14/2012 [facility] Vitamin B12 388 pg/mL 180-[address] [place] [address] [phone] Vitamin D, 25 11/14/2012 [facility] 25-Hydroxy <4.0 ng/mL Hydroxy [address] Vitamin [place]2 [place] [address] [phone] 25-Hydroxy Vitamin D3 32 ng/mL 25-Hydroxy Vitamin D Total 32 ng/mL 61 Laboratory test 11/14/2012 [facility] TSH (Thyroid 2.04 0.34- 5.[address] Stimulating miu/mL [place] [id number] Horm) [phone] Free T4 0.80 ng/mL 0.61-1.24 Laboratory test 11/14/2012 [facility] Hemoglobin A1c 8.6 High 5-7 finding Laboratory test 05/21/2012 [facility] Hemoglobin A1c 8.8 High 5-7 finding Urine Microalbumin 03/28/2012 [facility] Ur Microalbumin 6.0 mg/ L [address] (Mg/L) [place] [address] [phone] Urine Creatinine 132.6 mg/dL Urine Microalbumin/Creatinine 4.5 ug/mg Less Than 31 Comp Metabolic Panel 03/28/2012 [facility] Sodium 138 mmol/L 133-[address] [place] [address] [phone] Potassium 4.0 mmol/L 3.5-5.0 Chloride 102 mmol/L [...] Egfr Non- 97.0 >60 Egfr 124.7 >60 63 Laboratory test 03/28/2012 [facility] Glucose 168 mg/dL High 70-[address] [place] [address] [phone] Lipid Profile 03/28/2012 [facility] Triglycerides 156 mg/dL 40-200 (Trig/Chol/HDL) [address] [place] [address] [phone] Cholesterol 199 mg/dL Less than 200 HDL Cholesterol 43 mg/dL 40-60 64 Cholesterol/HDL Ratio 4.6 Average High 1-4.44 LDL Cholesterol 124.8 mg/dL High Less Than 100 65 Order 03/14/2012 [facility] In-House peak flow x 3 [phone] Laboratory test 03/14/2012 [facility] In House Hemoglobin A1c 8.9 High 5-7 finding Rapid Influenza A 02/22/2012 [facility] Rapid Influenza (SEE NOTE) 66 [address]igen [address] [place] [address] [phone] Comp Metabolic 02/22/2012 [facility] Sodium 136 mmol/L 133- [address] [place] [address] [phone] Potassium 4.1 mmol/L 3.5-5.0 Chloride 103 mmol/L [...] Egfr Non- 83.1 >60 Egfr 106.9 >60 67 CBC Auto 02/22/2012 [facility] White Blood 12.7 10^3/uL High 4.8-10.[address] Count [place], [place] [id number] [phone] Red Blood Count 4.84 10^6/uL 4.0-5.4 Hemoglobin [...] Blood Cells % 0 Laboratory test finding 05/12/2011 [facility] In House Hemoglobin A1c 7.3 High 5 -7 1 Desirable: <150 Borderline High: 150-199 High: 200-499 Very High: >500 2 Desirable: <200 Borderline High: 200-239 High: >239 3 Low: <40 Desirable: 40-60 High: >60 4 Desirable: <100 Near Optimal: 100-129 Borderline High: 130-159 High: 160-189 Very High: >189 5 accidently received on batch 18. but specimen was not sent with batch 18. 6 Normal Range 180 to 914 Indeterminate Range 145 to 180 Deficient Range <145 7 accidently received on batch 18. but specimen was not sent with batch 18. 8 ADDITIONAL INFORMATION This test was developed and its performance characteristics determined by [facility] in a manner consistent with CLIA requirements. This test has not been cleared or approved by the U.S. Food and Drug Administration. Test Performed by: [facility] [address] [place] [address] 9 RESULT: No apparent monoclonal protein on serum electrophoresis. Test Performed by: [facility] [address] [place] [address] 10 Because ethnic data is not always readily [...] 15-29 5 Kidney failure <15 (or dialysis) 11 Desirable: <150 Borderline High: 150-199 High: 200-499 Very High: >500 12 Desirable: <200 Borderline High: 200-239 High: >239 13 Low: <40 Desirable: 40-60 High: >60 14 Desirable: <100 Near Optimal: 100-129 Borderline High: 130-159 High: 160-189 Very High: >189 15 Desirable: <150 Borderline High: 150-199 High: 200-499 Very High: >500 16 Desirable: <200 Borderline High: 200-239 High: >239 17 Low: <40 Desirable: 40-60 High: >60 18 Desirable: <100 Near Optimal: 100-129 Borderline High: 130-159 High: 160-189 Very High: >189 19 Because ethnic data is not always [...] 5 Kidney failure <15 (or dialysis) 20 Therapeutic target for the treatment of diabetes mellitus patients is <7% HBA1C, and in selective patients <6.0%. Please refer to [place] [employer] diabetic care guidelines for further information. 21 Because ethnic data is not always readily [...] 15-29 5 Kidney failure <15 (or dialysis) 22 Test Performed by: [facility] [address] [place] [address] 23 Desirable: <150 Borderline High: 150-199 High: 200-499 Very High: >500 24 Desirable: <200 Borderline High: 200-239 High: >239 25 Low: <40 Desirable: 40-60 High: >60 26 Desirable: <100 Near Optimal: 100-129 Borderline High: 130-159 High: 160-189 Very High: >189 27 AM 8.7-22.4 PM <10 28 Therapeutic target for the treatment of diabetes mellitus patients is <7% HBA1C, and in selective patients <6.0%. Please refer to [place] [employer] diabetic care guidelines for further information. 29 [id number] 30 SEE RESULT BELOW Name: MARYA PINA : [address]: Tuyet Alvarado NP Acct: [id number] Unit: [id number] AGE: 36 Location: [facility] Re04/13/17 SEX: F Status: REG REF SPEC: [id number] LAMBERTO: 04/13/17-[address]: Tuyet Alvarado NP REQ: [id number] RECD: 04/13/17 STATUS: COMP _ SOURCE: [facility]: ORDERED: Kiana Smith Request COMMENTS: [id number] Procedure Result Reported Site Rapid Influenza A B Request Final 04/13/17- 1950 ML Specimen received for Influenza A/B Molecular testing * ML - MAIN LAB ([facility]) . END OF REPORT * ML=Testing performed at Main Lab DEPARTMENT OF PATHOLOGY, [address] [place] [address] Reese Fu M.D. Director [place] # [id number] [employer] Tinning Supervisor: [id number] SEE RESULT BELOW Name: MARYA PINA I : [address]: Karla Rich MD Acct: [id number] Unit: [id number] AGE: 36 Location: [facility] Re02/21/17 SEX: F Status: REG REF SPEC: [id number] LAMBERTO: 02/21/17-[address] [facility] [address]: Karla Rich MD REQ: [id number] RECD: 02/21/17-1013 STATUS: SOUT _ ORDERED: TP IMAGE ANAL, HPV/Thin Prep, HPV 16/18 GENE COMMENTS: [id number] Negative for Intraepithelial lesion or Malignancy A. [...] Signed (signature on file) SUHAIL Krause(ASCP) 02/22 9004 This Pap test was evaluated with the assistance of the Om[employer], [employer] Test Imaging System. Due to cytologic findings at the polymer tester microscope, comprehensive manual rescreening by a Hotel Maid may be required. The Pap Smear is [...] performed at Main Lab DEPARTMENT OF PATHOLOGY, [address] [place] [address] Reese Fu M.D. Director [facility] # [id number] 34 Please note: The following may produce a false positive D Dimer test: - Rheumatoid factor greater than 60 IU/ml - Plasma hemoglobin greater than 0.05 gm/dl - Bilirubin greater than 50 mg/dl - Lipids greater than 1000 mg/dl - FDP greater than 20 ug/ml 35 Because ethnic data is not always readily [...] 15-29 5 Kidney failure <15 (or dialysis) 36 Acute inflammation: >10.00 37 [id number] 38 Unable to calculate due to low microalbumin 39 [id number] 40 It is recognized that currently available assays [...] 95% confidence interval of 99.78 to 99.96%. 41 Warning: A positive result is not useful for establishing a diagnosis of syphilis. In most situations, such a result may reflect a prior treated infection; a negative result can exclude a diagnosis of syphilis except for incubating or early primary disease. 42 RYLEE JOHNSON to be notified Hot Dip Tinning Supervisor: [id number] CHUY STEPHEN 43 SEE RESULT BELOW Name: MARYA PINA I : [address]: Ana Jeffers MD Acct: [id number] Unit: [id number] AGE: 34 Location: ED Re06/06/15 SEX: F Status: DEP ER SPEC: [id number] LAMBERTO: 06/06/15-[address]: Heidi Avery MD REQ: [id number] RECD: 06/06/15 STATUS: EDUARDO LANGFORD DR: [facility] Karla Rich MD _ SOURCE: URINE SPDESC: ORDERED: Urine Culture Procedure Result Reported Site Urine Culture Final 06/07/15- 1122 ML No growth of clinically significant organisms * ML - MAIN LAB ([facility]) . END OF REPORT * ML=Testing performed at Main Lab DEPARTMENT OF PATHOLOGY, [address] [place] [address] Reese Fu M.D. Director [facility] # [id number] 44 Because ethnic data is not always readily [...] 15-29 5 Kidney failure <15 (or dialysis) 45 Female urine specimens have been self-validated by [facility] and have been granted conditional assay approval by [facility]. 46 Comment: right armpit abscess 47 SEE RESULT BELOW Name: MARYA PINA I : [address]: Ana Jeffers MD Acct: [id number] Unit: [id number] AGE: 34 Location: ED Re10/01/14 SEX: F Status: DEP ER SPEC: [id number] LAMBERTO: 10/01/14-[address]: Brian ELIZABETH REQ: [id number] RECD: 10/01/14-1810 STATUS: EDUARDO LANGFORD DR: Ana Jeffers MD _ SOURCE: [facility]: ORDERED: Culture Stain COMMENTS: Comment: right armpit [...] performed at Main Lab DEPARTMENT OF PATHOLOGY, [address] [place] [address] Reese Fu M.D. Director EUGENIE # [id number] Patient: MARYA PINA I [id number] (Continued) Specimen: [id number] Collected: 10/01/14 Received: 10/01/14 (Continued) Procedure Result Verified Site Wound/Misc Culture Final (continued) 10/03/14- 100 1. STAPHYLOCOCCUS AUREUS (continued) M.I.C. RX --------- ------ Imipenem-Deduced S * Ampicillin/Sulbactam-Deduced S Cefazolin-Deduced S * These antibiotics are not available in the [facility] Formulary Contact the Microbiology Department for any additional antibiotic reporting. * ML - MAIN LAB ([facility]) . END OF REPORT * ML=Testing performed at Main Lab DEPARTMENT OF PATHOLOGY, [address] [place] [address] Reese Fu M.D. Director [facility] # [id number] 48 Because ethnic data is not always readily [...] 15-29 5 Kidney failure <15 (or dialysis) 49 Desirable <150 Borderline high 150-199 High 200-499 Very High >500 50 Desirable <200 Borderline high 200-239 High >239 51 Low <40 Desirable: 40-60 High: >60 52 Desirable: <100 mg/dL Near Optimal: 100-129 mg/dL Borderline High: 130-159 mg/dL High: 160-189 mg/dL Very High: >189 mg/dL 53 Desirable <150 Borderline high 150-199 High 200-499 Very High >500 54 Desirable <200 Borderline high 200-239 High >239 55 Low <40 Desirable: 40-60 High: >60 56 Desirable <100 Near Optimal 100-129 Borderline high 130-159 High 160-189 Very High >189 57 Therapeutic target for the treatment of diabetes Mellitus patients is <7% HBA1C, and in selective patients <6.0%.Please refer to [place] [employer] Diabetic care guidelines for further information. 58 Because ethnic data is not always readily [...] 15-29 5 Kidney failure <15 (or dialysis) 59 Microalbuminuria in a random sample is defined as: Microalbumin/Creatinine ratio of 30-299 ug/mg. 60 RUN DATE: 03/06/13 [facility] LAB LIVE PAGE 1 RUN TIME: [address] [place] [address] Specimen Inquiry Name: MARYA PINA I : [address]: Damien Argueta DO Acct: [id number] Unit: [id number] AGE: 32 Location: ED Re03/06/13 SEX: F Status: REG ER SPEC: [id number] LAMBERTO: 03/06/13-[address] [facility] [address]: Babs ARTHUR REQ: [id number] RECD: 03/06/13-1220 STATUS: EDUARDO LANGFORD DR: Damien Doan MD _ SOURCE: [facility]: ORDERED: Rapid Flu A B Procedure [...] performed at Main Lab DEPARTMENT OF PATHOLOGY, [address] [place] [address] Reese Fu M.D. Director [facility] Permit #[id number] 61 -- REFERENCE VALUE -- 25-HYDROXY D TOTAL (D2+D3) Optimum levels in the healthy population are 20-50, patients with bone disease may benefit from higher levels within this range. Test Performed by: [address] [address] Rocket Engine Tester: Krish Mckinnon III, M.D. 62 Microalbuminuria in a random sample is defined as: Microalbumin/Creatinine ratio of 30-299 ug/mg. 63 Because ethnic data is not always readily [...] 15-29 5 Kidney failure <15 (or dialysis) 64 HDL Interpretation: Undesirable: High Risk: Less than 40 MG/DL Desirable: Low Risk: Greater than 60 MG/DL 65 LDL Interpretation: Low Risk Optimal Level: LDL Less than 100 MG/DL Near or Above Optimal: LDL 100-129 MG/DL Borderline High Risk: LDL 130-159 MG/DL High Risk: LDL 160-189 MG/DL Very High Risk: LDL Greater than 189 MG/DL 66 RUN DATE: 02/22/12 [facility] LAB LIVE PAGE 1 RUN TIME: [address] [place] [address] Specimen Inquiry Name: MARYA PINA I : [address]: Sukumar Madera DO Acct: [id number] Unit: [id number] AGE: 31 Location: ED Re02/22/12 SEX: F Status: REG ER SPEC: [id number] LAMBERTO: 02/22/12-[address] [facility] [address]: Chloe Deepthi ALAS REQ: [id number] RECD: 02/22/12 STATUS: EDUARDO LANGFORD DR: Santy GODWIN,Sukumar Larkin MD,[facility] _ SOURCE: [facility]: ORDERED: Rapid Flu A B Procedure [...] performed at Main Lab DEPARTMENT OF PATHOLOGY, [address] [place] [address] Reese Fu M.D. Director [facility] Permit #[id number] 67 Because ethnic data is not always readily [...] 15-29 5 Kidney failure <15 (or dialysis) Procedures Date Code Description Status 10/12/2017 99164 Diffusing Capacity Completed 10/12/2017 57803 Plethysmography Determination Lung Volumes & Per Completed Airway Resist 10/12/2017 61093 Pulmonary Function><Bronchodil Completed 08/10/2017 782211722 Diabetic Retinal Eye Exam Completed 08/02/2017 88271 ECHO Transthorasic Realtime 2D W Doppler & Color Flow Completed Hosp 04/25/2016 [id number] Diabetic Retinal Eye Exam Completed 01/21/2015 733316307 Diabetic Retinal Eye Exam Completed 09/20/2012 65569 Polysomnography Sleep Staging 4+ Parameters Completed 03/28/2012 10283 Pulmonary Function><Bronchodilator Completed Encounters Type Date Location Provider Dx Diagnosis Office Visit 09/21/2018 Pulmonology And Sleep Noemy Bedolla MD R06.83 Snoring 9:15a [facility] J45.909 Unspecified asthma, uncomplicated F17.210 Nicotine dependence, cigarettes, uncomplicated Office Visit 09/13/2018 [facility] Gastroenterology Joshua Aguayo E66.01 Morbid 2:45p MD Juan J (severe) obesity due to excess calories E11.65 Type 2 diabetes mellitus with hyperglycemia K21.9 Gastro-esophageal reflux disease without esophagitis Office 08/17/2018 [facility] Internal Tuyet E78.00 Pure hypercholesterolemia, Visit 10:20a Medicine - Varn, N.P. unspecified Ccmob E11.65 Type 2 diabetes mellitus with hyperglycemia M25.569 Pain in unspecified knee M54.5 Low back pain J45.41 Moderate persistent asthma with (acute) exacerbation F17.210 Nicotine dependence, cigarettes, uncomplicated Office Visit 08/02/2018 8:40a [facility] Luis Murdock, Z79.4 senior living Endocrinology [facility] (current) use of insulin E11.65 Type 2 diabetes mellitus with hyperglycemia Office Visit 06/21/2018 11:00a [facility] Luis Murdock, E11.40 Type 2 diabetes Endocrinology of mellitus with [facility] diabetic neuropathy, unsp E11.65 Type 2 diabetes mellitus with hyperglycemia E04.9 Nontoxic goiter, unspecified Office Visit 05/03/2018 11:20a [facility] Internal Tuyet Alvarado, Z00.01 Encounter for Medicine - Ccmob N.P. general adult medical exam w abnormal findings E11.40 Type 2 diabetes mellitus with diabetic neuropathy, unsp E11.65 Type 2 diabetes mellitus with hyperglycemia J45.901 Unspecified asthma with (acute) exacerbation L03.116 Cellulitis of left lower limb L02.416 Cutaneous abscess of left lower limb F17.210 Nicotine dependence, cigarettes, uncomplicated Z79.4 senior living (current) use of insulin E66.01 Morbid (severe) obesity due to excess calories Z68.43 Body mass index (BMI) 50-59.9, adult G47.33 Obstructive sleep apnea (adult) (pediatric) I89.0 Lymphedema, not elsewhere classified Office Visit 12/19/2017 1:40p [facility] Internal Tuyet Alvarado, I89.0 Lymphedema, not Medicine - N.P. elsewhere Ccmob classified L03.818 Cellulitis of other sites Office Visit 11/02/2017 10:40a [facility] Emiliano Alvarado Z79.84 senior living Medicine - N.P. 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 elsewhere Ccmob classified E11.65 Type 2 diabetes mellitus with hyperglycemia Office Visit 08/24/2017 9:40a [facility] Internal Tuyet Christiano, I89.0 Lymphedema, not Medicine - N.P. elsewhere Ccmob classified E11.65 Type 2 diabetes mellitus with hyperglycemia J45.22 Mild intermittent asthma with status asthmaticus K21.9 Gastro-esophageal reflux disease without esophagitis Office Visit 08/07/2017 11:20a [facility] Internal Tuyet Castrejonn, E11.65 Type 2 diabetes Medicine - N.P. mellitus with Ccmob hyperglycemia H92.09 Otalgia, unspecified ear Z68.44 Body mass index (BMI) 60.0-69.9, adult Office Visit 07/14/2017 1:40p [facility] Internal Tuyet Castrejonn, E11.65 Type 2 diabetes Medicine - N.P. mellitus with Ccmob hyperglycemia E11.40 Type 2 diabetes mellitus with diabetic neuropathy, unsp I89.0 Lymphedema, not elsewhere classified J45.40 Moderate persistent asthma, uncomplicated J20.9 Acute bronchitis, unspecified Office Visit 05/22/2017 2:20p [facility] Internal Shane Anderson, J01.90 Acute sinusitis, Medicine - [facility] OBSTETRICS GYN unspecified J20.9 Acute bronchitis, unspecified Office Visit 04/13/2017 11:40a [facility] Internal Tuyet Alvarado, F17.200 Nicotine Medicine - N.P. dependence, Ccmob unspecified, uncomplicated J20.9 Acute bronchitis, unspecified E11.65 Type 2 diabetes mellitus with hyperglycemia Office Visit 03/30/2017 9:00a [facility] Internal Shane Anderson, I82.819 Embolism and Medicine - [facility] OBSTETRICS GYN thrombosis of superficial vn unsp low extrm J01.90 Acute sinusitis, unspecified Office Visit 02/21/2017 8:00a [facility] Internal Karla Z00.00 Encntr for Medicine - [facility] Cotton, M.D. general adult medical exam w/o abnormal findings Z12.4 Encounter for screening for malignant neoplasm of cervix E11.65 Type 2 diabetes mellitus with hyperglycemia Z72.0 Tobacco use I82.819 Embolism and thrombosis of superficial vn unsp low extrm R05 Cough F32.89 Other specified depressive episodes Office Visit 02/14/2017 8:40a [facility] Internal Karla I82.819 Embolism and Medicine - [place]re[place] Rich thrombosis of Ccmob superficial vn unsp low extrm E11.65 Type 2 diabetes mellitus with hyperglycemia Office Visit 12/09/2016 11:40a [facility] Internal Medicine - Tuyet Varcarlin, N.P. R05 Cough Ccmob R07.89 Other chest pain Office Visit 11/29/2016 10:20a [facility] Internal Tuyet Alvarado, J45.41 Moderate Medicine - N.P. persistent asthma Ccmob with (acute) exacerbation E11.65 Type 2 diabetes mellitus with hyperglycemia F17.218 Nicotine dependence, cigarettes, w oth disorders Office Visit 11/11/2016 10:20a [facility] Internal Tuyet Alvarado, J20.9 Acute bronchitis, Medicine - Ccmob N.P. 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 bilateral upper limbs G56.23 Lesion of ulnar nerve, bilateral upper limbs Office Visit 10/04/2016 1:00p [facility] Internal Tuyet Alvarado, E11.65 Type 2 diabetes Medicine - N.P. mellitus with Ccmob hyperglycemia J45.30 Mild persistent asthma, uncomplicated J30.9 Allergic rhinitis, unspecified M79.641 Pain in right hand Z23 Encounter for immunization Office Visit 08/22/2016 2:00p [facility] Internal Tuyet Alvarado, E11.65 Type 2 diabetes Medicine - N.P. mellitus with Ccmob hyperglycemia J20.9 Acute bronchitis, unspecified Office Visit 04/29/2016 1:00p [facility] Internal Tuyet Alvarado, R19.7 Diarrhea, Medicine - N.P. unspecified Ccmob J20.9 Acute bronchitis, unspecified Office Visit 03/02/2016 11:20a [facility] Internal Tuyet Alvarado, F43.23 Adjustment Medicine - N.P. disorder with Ccmob mixed anxiety and depressed mood B37.3 Candidiasis of vulva and vagina Z11.3 Encntr screen for infections w sexl mode of transmiss R19.7 Diarrhea, unspecified Office Visit 12/31/2015 10:40a [facility] Internal Tuyet Christiano, J20.9 Acute bronchitis, Medicine - N.P. unspecified Ccmob M54.89 Other dorsalgia Office Visit 10/26/2015 10:00a [facility] Internal Tuyet Alvarado, Z79.4 emt intermediate Medicine - Ccmob N.P. (current) use of insulin E11.65 Type 2 diabetes mellitus with hyperglycemia F17.210 Nicotine dependence, cigarettes, uncomplicated H66.93 Otitis media, unspecified, bilateral Office Visit 08/17/2015 11:40a [facility] Internal Tuyet Alvarado, B37.0 Candidal Medicine - Ccmob N.P. stomatitis J20.9 Acute bronchitis, unspecified J45.901 Unspecified asthma with (acute) exacerbation Office Visit 07/24/2015 10:00a [facility] Internal Tuyet Alvarado, J20.9 Acute bronchitis, Medicine - N.P. unspecified Ccmob E11.65 Type 2 diabetes mellitus with hyperglycemia Office Visit 06/11/2015 2:40p [facility] Internal Wilfredo Haile R10.13 Epigastric pain Roberto Patel M.D. Ccmob Office Visit 04/22/2015 10:00a [facility] Internal Tuyet Christiano, E11.65 Type 2 diabetes Medicine - N.P. mellitus with Ccmob hyperglycemia I80.02 Phlebitis and thombophlb of superfic vessels of l low extrem J30.9 Allergic rhinitis, unspecified F17.210 Nicotine dependence, cigarettes, uncomplicated Office Visit 01/20/2015 11:20a [facility] Internal Tuyet Alvarado, Z11.3 Encntr screen for Medicine - Ccmob N.P. infections w sexl mode of transmiss E11.65 Type 2 diabetes mellitus with hyperglycemia I10 Essential (primary) hypertension F17.210 Nicotine dependence, cigarettes, uncomplicated Z23 Encounter for immunization Office Visit 12/17/2014 11:20a [facility] Internal Tuyet Alvarado, Z79.4 senior living Medicine - Ccmob N.P. (current) use of insulin E11.65 Type 2 diabetes mellitus with hyperglycemia J20.9 Acute bronchitis, unspecified I10 Essential (primary) hypertension L02.421 Furuncle of right axilla L02.422 Furuncle of left axilla F17.210 Nicotine dependence, cigarettes, uncomplicated Office Visit 05/09/2014 1:00p [facility] Internal Tuyet Alavrado, 250.02 Diabetes Medicine - Ccmob N.P. Mellitus W/O Compl Type II Or Unspec Type Uncontrol 401.1 Hypertension Benign 305.1 Tobacco Use Disorder 311 Depressive Disorder Not Elsewhere Spec 493.90 Asthma Unspec W/O Status Asthmaticus 477.9 Rhinitis Allergic Cause Unspec 110.1 Dermatophytosis Nail 466.0 Bronchitis Acute 493.92 Asthma Unspec W/ Acute Exacerbation V58.67 Long-Term Use Of Insulin Office Visit 09/12/2013 10:30a [facility] Internal Cassidy Lua, 250.02 Diabetes Medicine - N.P. Mellitus W/O Ccmob Compl Type II Or Unspec Type Uncontrol 278.01 Obesity Morbid Office Visit 08/30/2013 11:20a [facility] Internal Cristina Garcia, 250.02 Diabetes Medicine - Ccm[facility] M.D. Mellitus W/O Compl Type II Or Unspec Type Uncontrol 382.9 Otitis Media Unspec 477.9 Rhinitis Allergic Cause Unspec Office Visit 05/03/2013 11:00a [facility] Internal Cristina Garcia, 250.02 Diabetes Medicine - Ccmob M.D. Mellitus W/O Compl Type II Or Unspec Type Uncontrol 381.4 Otitis Media Acute Or Chronic Nonsuppurative 278.01 Obesity Morbid 305.1 Tobacco Use Disorder 327.23 Obstructive Sleep Apnea Adult & Pediatric Office Visit 04/15/2013 10:20a [facility] Internal Cristina Garcia, 493.90 Asthma Unspec W/O Medicine - M.D. Status Asthmaticus Ccmob 466.0 Bronchitis Acute 381.4 Otitis Media Acute Or Chronic Nonsuppurative 250.02 Diabetes Mellitus W/O Compl Type II Or Unspec Type Uncontrol Office Visit 01/22/2013 11:20a [facility] Internal Tuyet Alvarado, 466.0 Bronchitis Acute Medicine - Ccmob N.P. 381.81 Eustachian Tube Dysfunction Office Visit 01/07/2013 9:40a [facility] Internal Tuyet Alvarado, 466.0 Bronchitis Acute Medicine - Ccmob N.P. 686.8 Local Infection Skin & Subcutaneous Tissue Other Spec 727.03 Trigger Finger Acquired Office Visit 11/28/2012 11:00a [facility] Internal Cristina Garcia, 493.90 Asthma Unspec W/O Medicine - M.D. Status Asthmaticus Ccmob Office Visit 11/14/2012 2:40p [facility] Cristina Garcia, 250.02 Diabetes Mellitus Roberto Welch M.D. W/O Compl Type II Ccmob Or Unspec Type Uncontrol 278.01 Obesity Morbid 311 Depressive Disorder Not Elsewhere Spec 782.0 Skin Sensation Disturbance Office Visit 10/29/2012 8:40a [facility] Emiliano Garcia, 278.01 Obesity Morbid Medicine - Amanda Melendrez.Zahra 729.5 Pain In Limb 250.02 Diabetes Mellitus W/O Compl Type II Or Unspec Type Uncontrol 311 Depressive Disorder Not Elsewhere Spec Office Visit 08/17/2012 11:00a [facility] Cristina Garcia, 305.1 Tobacco Use Medicine - Amanda [place] Disorder 278.01 Obesity Morbid 729.5 Pain In Limb Office Visit 07/18/2012 4:17p Alethea Castellanos 786.09 Dyspnea & Disorder [facility] Abnormalities Other Office Visit 06/25/2012 11:40a [facility] Emiliano Garcia, 278.01 Obesity Morbid Medicine - [place] Ccmob 305.1 Tobacco Use Disorder 250.02 Diabetes Mellitus W/O Compl Type II Or Unspec Type Uncontrol Office Visit 05/21/2012 9:20a [facility] Emiliano Garcia, 250.02 Diabetes Medicine - Amanda [place] Mellitus W/O Compl Type II Or Unspec Type Uncontrol 493.90 Asthma Unspec W/O Status Asthmaticus 305.1 Tobacco Use Disorder 278.01 Obesity Morbid 401.1 Hypertension Benign 307.49 Sleep Disorder Other 382.9 Otitis Media Unspec V03.82 Streptococcus Pneumoniae Vaccination Spec Other Office Visit 03/28/2012 1:40p [facility] Emiliano Garcia, 250.02 Diabetes Medicine - Amanda Melendrez.DJessica Mellitus W/O Compl Type II Or Unspec Type Uncontrol 493.90 Asthma Unspec W/O Status Asthmaticus 305.1 Tobacco Use Disorder Office Visit 03/14/2012 2:20p [facility] Emiliano Garcia 250.02 Diabetes Medicine - Amanda PiñaDJessica Mellitus W/O Compl Type II Or Unspec Type Uncontrol 278.01 Obesity Morbid 305.1 Tobacco Use Disorder 493.90 Asthma Unspec W/O Status Asthmaticus 401.1 Hypertension Benign 307.49 Sleep Disorder Other 521.08 Dental Caries-Root Surface Office Visit 01/18/2012 9:40a [facility] Emiliano Galdameze Varn, 682.8 Cellulitis & Medicine - N.P. Abscess Other [facility] Spec Sites Office Visit 05/12/2011 9:30a [facility] Constance Larkin, 278.01 Obesity Morbid Medicine - M.DJessica Ccmob 477.9 Rhinitis Allergic Cause Unspec 250.02 Diabetes Mellitus W/O Compl Type II Or Unspec Type Uncontrol 305.1 Tobacco Use Disorder Plan of Treatment Future Appointment(s):11/08/2018 9:30 am - Yennifer Painting NP at [facility]10/23/2018 2:30 pm - Felice Billingsley M.D. at [facility]10/09/2018 8:15 am - Joshua Arita MD at [facility] Iffktcvdwnkqprfg70/19/2019 11:00 am - Tuyet Alvarado, N.P. at [facility] 9:40 am - Luis Murdock MD at [facility]09/21/2018 - Noemy Bedolla, MDR06.83 SnoringNew Orders:Sleep Study, Ordered: 09/21/18Follow up:6 weeks SMJ45.909 Unspecified asthma, [id number] Nicotine dependence, cigarettes, uncomplicated
--- OUTSIDE RECORDS SUMMARY | 2018-09-30 18:06 | XMS REPORT | Continuity of Care Document ---
:1980 External Reference #:[id number] Author Name Yenifer Bauman Care Team Providers Name Role Phone Karla Rich MD Primary Care Physician Unavailable Payers Date Identification Numbers Payment Provider Subscriber Policy Number: [id number] [employer] Marya Pina Group Name: [id number] [address] [address] PayID: [id number] [place] [address] Expires: 2017 Policy Number: [id number] Medicaid Marya Pina Group Name: 1 1 [address] PayID: [id number] [place] [address] Effective: 2016 Policy Number: [id number] [employer] Marya Pina Expires: 2017 PayID: [id number] [address] [address] [place] [address] Problems Active Problems Provider Date Type II diabetes mellitus uncontrolled Constance Larkin M.D. Onset: 05/12/2011 Note: on insulin since 2018 Blood coagulation disorder Tuyet Alvarado N.Lori Onset: 07/18/2017 Morbid obesity Constance Larkin M.D. Onset: 05/12/2011 Tobacco user Constance Larkin M.D. Onset: 05/12/2011 Benign essential hypertension Cristina Garcia M.D. Onset: 03/14/2012 Sleep apnea Karla Rich M.D. Onset: 03/06/2012 Note: PFTs October 2017 normal with FVC 105% DLCO 70%; Asthma Karla Rich M.D. Onset: 02/21/2017 Lymphedema Tuyet Alvarado N.P. Onset: 09/04/2017 Allergic rhinitis Constance Larkin M.D. 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 Has tried quitting with patches which caused allergic contact dermatitis Smoking Status Reviewed: 09/17/18 1 pack/day variable amounts. Has tried quitting [...] Calcium take 1 tablet by 90tabs E78.00 [place] 20mg mouth at bedtime Varn, N.P. 9 Tablets Ibuprofen 1 by mouth every 90tabs M54.5 [place] 600mg Tablets 6 hours as needed Varn, N.P. 9 for pain Advair Diskus inhale 1 dose by 60units J45.41 [place] 500-50mcg/Dose mouth twice daily Varn, N.P. 9 Aerosol (not taking) Humulin N 40 units QHS or 20ml E11.65 [facility], 100Unit/ML Suspension as directed, MDD 9 60 Humulin R 40 units tid-ac 50ml [facility], 100Unit/ML Solution or as directed, MD Blake MDD 180 Onet[employer] Verio test four times 150units [facility], Strips daily and as MD Blake needed Onetouch Ultrasoft use to test blood 300units [facility], Lancets glucose three MD Blake Misc times a day and as needed Ozempic Hold On File, 1mg 3ml E11.65 [facility], 1mg/Dose Solution injection once MD Blake Pen-Inject weekly, hold on file for second month Amitriptyline HCL 2 tablets, (20 60tabs E11.40 [facility], 10mg Tablets mg) at bedtime MD Blake Insulin Syringe/0.5ML/30G 4 times daily for 150units E11.40 [facility], X 1/2" insulin MD Blake 30G X 1/2" 0.5 ML [facility] Blood [facility]ucose Monitoring test blood sugars 1units E11.65 [place] System once fasting and Varn, N.P. 9 W/Device Kit 2 hours after dinner meal Blood Glucose Test test blood sugar 100units E11.65 Tuyet Strips fasting in in the Varn, N.P. 9 morning and 2 hours after dinner meal Lancet Device use when testing 100units E11.65 [facility] blood gluose Varn, N.P. 9 Pantoprazole Sodium [...] 8 Ranitidine HCL Take One Tablet 60tabs Tuyet 150mg Tablets By Mouth Twice A Varn, N.P. 8 Day Hydrochlorothiazide Take One Tablet 30tabs [place] 25mg By Mouth Every Varn, N.P. 8 Tablets Day Glucose Meter Test Strips for use 3-4 times 100units [employer] Advanced daily Varn, N.P. 8 Strips Gabapentin 2 capsules 3 180caps E11.40 [place] [employer] 300mg Capsules times daily Varn, N.P. 8 Nebulizer use three times a 1units [place] Kit/Tubing/Mouthpiece day as needed Varn, N.P. 8 Kit Fluoxetine HCL Take One Capsule 30caps F43.23 [place] 20mg Capsules By Mouth Every Varn, N.P. 8 Day Montelukast Sodium Take One Tablet 30tabs J45.41 [place] 10mg Tablets By Mouth Every Varn, N.P. 7 Day Freestyle Lancets test up to 2 300units [place] [employer] Misc times a day or as Varn, N.P. 7 needed Metformin HCL ER Take 4 Tablets By 120tabs E11.65 [place] [employer] 500mg Tablets Mouth With Dinner Varn, N.P. 7 ER 24HR Fluconazole Take 1 Tablet By 2tabs [place] 150mg Tablets Mouth Then May Varn, N.P. 7 Repeat In 3 Days as Needed Simethicone 1 by mouth after 30caps R19.7 [place] [employer] 180mg Capsules each meal Varn, N.P. 7 Ventolin HFA Inhale Two Puffs 18units [place] [employer] 108(90Base) By Mouth Four Varn, N.P. 6 mcg/Act Aerosol Times A Day as Needed Freestyle Lite Blood check fingerstick 1units E11.65 [place] [employer] Glucose Monitoring System three times daily Varn, N.P. 6 or as needed, DX Device - E11.65 Ipratropium inhale the 180units J20.9 [place] [employer]/Albuterol Sulfate contents of one Varn, N.P. 6 vial via 0.5-2.5(3)mg/3ML Solution nebulizer three times a day as needed for asthma Nebulizer use three times a 1units J20.9 [place] Device day as needed Varn, N.P. 6 Senna Laxative 1 tab by mouth 15tabs K59.00 Noemy 25mg Tablets 1-2 times as MD Graeme 6 needed Compression Stockings knee high 2units I80.02 [place] [employer] Misc stockings 20 - 30 Varn, N.P. 6 mm Cetirizine HCL 1 by mouth every 30tabs J30.9 [place] 10mg Tablets day Varn, N.P. 6 Ramipril Take One Capsule 30caps I10 [place] 5mg Capsules By Mouth Every Varn, N.P. 5 Day Fluticasone Propionate [place] One [place] 16units [place] [employer] In Each Nostril Varn, N.P. 4 50mcg/Act Suspension Every Day as Needed Nebulizer J45.909 Cristina Garcia, Compressor/Dualfilter/7' MJessicaDJessica 3 Tubing/Aerosol T/Mthpiece Kit Methocarbamol 1 by mouth twice Unknown 00/00/000 Tablets a day as needed 0 for spasm History Medications Lyrica 1 by mouth every 120caps G62.9 Felice SJessica 09/17/2018 - 25mg night at bedtime Bereket Billingsley 09/17/2018 Capsules for 1 week then 1 twice a day for 1 week then 2 twice a day mdd 4 Pen [place] 1/2" use 1 pen needle 3 100units [...] Novolin R 30 units with 30ml E11.40 Lius Murdock MD 06/21/2018 - meals, MDD 100 [...] Tablets Prednisone 4 tablets by mouth 40tabs Tyuet Alvarado, 11/23/2017 - 10mg for 4 days [...] tabs day one, 6tabs J20.9 Tuyet Christiano, 07/14/2017 - 250mg one daily till N.P. 07/24/2017 Tablets gone Benzonatate one by mouth three 30caps J20.9 Tuyet Christiano, 07/14/2017 - 100mg times daily as N.P. 07/28/2017 Capsules needed for cough Augmentin one by mouth every 14tabs Tuyet Alvarado, 06/02/2017 - 875-125mg 12 hours for 7 N.P. 06/09/2017 Tablets days Doxycycline Hyclate one tablet twice 20caps J01.90 Shane Anderson NP 2017 - daily for 10 days. 06/01/2017 100mg Capsules Prednisone 4 tablets by mouth 40tabs J20.9 Tuyet Alvarado, 04/13/2017 - 10mg for 4 days 3 N.P. 04/29/2017 Tablets tablets by mouth for 4 days 2 tablets by mouth for 4 days 1 tablet by mouth for 4 days Levaquin 1 by mouth daily 10tabs J20.9 Tuyet Alvarado, 04/13/2017 - 500mg for 10 days N.P. [...] Sodium Apply 4 Gms qid 100gm Tuyet Castrejoncarlin, 01/09/2017 - prn for pain N.P. 05/23/2017 1% Gel Ibuprofen by mouth three 90tabs I80.02 Tuyet Christiano, 12/23/2016 - 800mg times a day as N.P. 04/26/2017 Tablets needed Diclofenac Sodium Apply 0.5 Gm gel 100gm Tuyet Castrejoncarlin, 12/23/2016 - bid N.P. 01/09/2017 3% Gel Lidocaine apply externally 35units Tuyet Christiano, 12/23/2016 - 5% as needed once N.P. 05/23/2017 Ointment daily Doxepin HCL Apply 2 - 3 Gms 135gm Tuyet Castrejoncarlin, 12/23/2016 - 5% bid _ tid prn for N.P. 11/02/2017 Cream neuropathic pain Benzonatate one by mouth three 60caps Tuyet Christiano, 12/09/2016 - 200mg times daily as N.P. 01/08/2017 Capsules needed for cough Augmentin one by mouth every 20tabs R05 Tuyet Christiano, 12/09/2016 - 875-125mg 12 hours for ten N.P. 12/19/2016 Tablets days Celebrex 1 by mouth every 30caps R07.89 Tuyet Christiano, 12/09/2016 - 200mg day N.P. Unknown Capsules [...] 4 tablets by mouth 40tabs J20.9 Tuyet Cashn, 11/11/2016 - 10mg for 4 days 3 N.P. 11/27/2016 Tablets tablets by mouth for 4 days 2 tablets by mouth for 4 days 1 tablet by mouth for 4 days Augmentin one by mouth every 20tabs J20.9 Tuyet Varn, 11/11/2016 - 875-125mg 12 hours for ten N.P. 11/21/2016 Tablets days Benzonatate one by mouth three 30caps J20.9 Tuyet Varn, 11/11/2016 - 100mg times daily as N.P. 11/25/2016 Capsules needed for cough Freestyle Lite 2 times daily or 300units Tuyet Christiano, 10/19/2016 - Lancets as needed dx e11.9 N.P. 06/20/2018 Pulmicort Flexhaler 2 puffs twice 1units Tuyet Christiano, 10/04/2016 - daily N.P. 11/11/2016 180mcg/Act Aerosol Splint Wrist Wear this at night 1units M79.641 Tuyet Christiano, 10/04/2016 - Brace/Left-Right/Re N.P. 10/05/2016 versible Misc Doxycycline Hyclate 1 tablet by mouth 20tabs Tuyet Christiano, 09/29/2016 - bid x 10 days N.P. 10/09/2016 100mg Tablets Basaglar Kwikpen inject 84 units 6ml E11.65 Tuyet Christiano, 09/20/2016 - under the skin N.P. 06/21/2018 100Unit/ML Solution every morning Pen-Inject Augmentin one by mouth every 20tabs J20.9 Tuyet Varn, 08/22/2016 - 875-125mg 12 hours for ten N.P. 09/01/2016 Tablets days Benzonatate one by mouth three 30caps J20.9 Tuyet Varn, 08/22/2016 - 100mg times daily as N.P. 09/06/2016 Capsules needed for cough Prednisone 4 tabs po qd x 4d 60tabs Tuyet Christiano, 05/12/2016 - 5mg then 3 tabs po qd N.P. 05/28/2016 Tablets x 3d then 2 tabs po qd x 2d then 1 tab po qd x 1 d then 1/2 tab po qd x 2d. Azithromycin two tabs day one, 6tabs J20.9 Tuyet Castrejoncarlin, 04/29/2016 - 250mg one daily till N.P. 05/09/2016 Tablets gone Vistaril one by mouth at 30caps F43.23 Tuyet Castrejoncarlin, 03/02/2016 - 50mg bedtime N.P. 11/29/2016 Capsules Lotrisone apply externally 15gm B37.3 Tuyet Varcarlin, 03/02/2016 - 1-0.05% bid-tid N.P. 03/16/2016 Cream Fluoxetine HCL take 1 tablet by 30tabs F43.23 Tuyet Castrejoncarlin, 03/02/2016 - 20mg mouth every day N.P. 05/23/2017 Tablets Fluconazole one by mouth july 2tabs Tuyet Varcarlin, 01/26/2016 - 150mg repeat in 3 days N.P. 04/29/2016 Tablets as needed Azithromycin two tabs day one, 6tabs J20.9 Tuyet Castrejoncarlin, 12/31/2015 - 250mg one daily till N.P. 01/10/2016 Tablets gone Prednisone J20.9 Other Ordering 12/31/2015 - 10mg Provider 01/14/2016 Tablets Azithromycin two tabs day one, 6tabs H66.93 Tuyet Varcarlin, 10/26/2015 - 250mg one daily till N.P. 11/05/2015 Tablets gone Januvia Take One Tablet By 30tabs E11.65 Tuyet Christiano, 10/12/2015 - 100mg Mouth Every Day N.P. 06/21/2018 Tablets Tobramycin 1 drop in affected 5ml Tuyet Christiano, 08/25/2015 - 0.3% eye every 4hours x N.P. 09/01/2015 Solution 7 days Nystatin 4 milliliters four 16oz B37.0 Tuyet Christiano, 08/17/2015 - times a day, swish N.P. 07/26/2015 [id number]/ML and swallow for 14 Suspension days Azithromycin two tabs day one, 6tabs J20.9 Tuyet Christiano, 08/17/2015 - 250mg one daily till N.P. 08/27/2015 Tablets gone Fluconazole one by mouth july 2tabs Tuyet Castrejoncarlin, 08/17/2015 - 150mg repeat in 3 days N.P. 01/03/2016 Tablets as needed Prednisone 5tabx 2days,4 30tabs [place] 08/02/2015 - 10mg [id number] Bereket Rubin 08/17/2015 Tablets [id number] ays,1tabxday. Benzonatate one by mouth three 30caps J20.9 Tuyet Castrejoncarlin, 07/24/2015 - 200mg times daily as N.P. 09/08/2015 Capsules needed for cough Azithromycin two tabs day one, 6tabs J20.9 Tuyet Christiano, 07/24/2015 - 250mg one daily till N.P. 08/03/2015 Tablets gone Nexium 1 by mouth every 30caps R10.13 Tuyet Christiano, 06/22/2015 - 20mg day N.P. 03/21/[address] Jose Gupta For weeks 1 to 6: 81units F17.210 Tuyet Christiano, 2015 - 2mg One lozenge po q 1 N.P. 04/29/2016 Lozenges - 2 hours prn Colace 1 tab by mouth 30caps K59.00 Noemyanastacia Bedolla, 06/07/2015 - 100mg twice daily MD 07/26/2015 Capsules Ibuprofen 1 by mouth every 6 120tabs I80.02 Tuyet Christiano, 04/22/2015 - 600mg hours as needed N.P. 12/23/2016 Tablets for pain Nicotine Polacrilex 1 lozenge every 1 216units F17.210 Tuyet Christiano, - - 2 hours N.P. 04/22/2015 4mg [...] Use 22 units daily 45ml J20.9 Tuyet Castrejoncarlin, 12/17/2014 - N.P. 01/19/2015 100Unit/ML Solution Pen-Inject Benzonatate one by mouth three 30caps J20.9 Tuyet Castrejoncarlin, 12/17/2014 - 100mg times daily as N.P. 12/31/2014 Capsules needed for cough Azithromycin two tabs day one, 6tabs J20.9 Tuyet Castrejoncarlin, 12/17/2014 - 250mg one daily till N.P. 12/23/2014 Tablets gone Paroxetine HCL 1 by mouth every 30tabs F32.9 Tuyet Castrejoncarlin, 05/09/2014 - 40mg day N.P. 08/17/2015 Tablets Azithromycin two tabs day one, 6tabs 466.0 Tuyet Christiano, 05/09/2014 - 250mg one daily till N.P. 05/19/2014 Tablets gone Benzonatate one by mouth three 30caps 466.0 Tuyet Castrejoncarlin, 05/09/2014 - 100mg times daily as N.P. 05/19/2014 Capsules needed for cough Pen [place] 05/19" use with insulin 90units Tuyet Alvarado, [...] Starting take as directed QS 305.1 Cristina Garcai, 05/21/2012 - Month Charlie M.D. 06/25/2012 0.5mg X 11 & 1 mg X 42 Tablets Proair HFA two puffs every 4 1units J45.909 Tuyet Alvarado, 05/21/2012 - hours as needed N.P. 09/22/2016 108(90Base) mcg/Act for wheeze and Aerosol chest tightness. Advair Diskus 1 puff by mouth 14units J45.909 Tuyet Alvarado, 05/21/2012 - twice a day N.P. 11/29/2016 [...] 50mcg/Act nostril twice 05/16/2011 Suspension daily Ipratropium [place] instill 2 sprays 30ml Unknown - in each nostril 03/28/2012 0.03% Solution twice a day Albuterol 2 puffs po qid prn 3units 493.90 Cristina Garcia, - 90mcg/Act M.D. 05/21/2012 Aerosol Lisinopril 1 po qd 30tabs Cristina Radha, - 5mg M.D. 08/30/2013 Tablets Metformin HCL ER 1 po qd 30tabs Unknown - 03/14/2012 500mg Tablets ER 24HR Sertraline HCL 1 po qd 90tabs Unknown - 50mg 03/28/2012 Tablets Loratadine 1 po qd Unknown - 10mg 03/28/2012 Tablets Medications Administered in Office Medication SIG Qnty Indications Ordering Provider Date Records Fee Tuyet Alvarado N.P. 08/29/2018 Injection Immunizations CPT Code Status Date Vaccine Lot # [id number] Given 10/04/2016 Tdap - Tetanus/Diptheria/Acellular Pertussis [id number] Given 01/20/2015 Flu Vaccine Split Virus Preservative Free For [id number] Indiv [id number] Older [id number] Given 05/21/2012 Pneumonia Vaccine [id number] Vital Signs Date Vital Result Comment 09/17/2018 9:39am Height 62.75 inches 5'2.75" Weight [...] Facility Test Result H/L Range Note Lipid Panel - 08/17/2018 [facility] Creatine 172 U/L N 10-[address] Kinase(CK) [place] [address] [phone] Comp Metabolic 08/17/2018 [facility] Sodium 138 mmol/L N 135- [address] [place] [address] [phone] Potassium 4.5 mmol/L N 3.5-5.0 Chloride 103 [...] Egfr Non- 83.5 >60 Egfr 101.0 >60 1 Lipid Profile 08/17/2018 [facility] Triglycerides 180 mg/dL 2 (Trig/Chol/HDL) [address] [place] [address] [phone] Cholesterol 209 mg/dL 3 HDL Cholesterol 42.0 mg/dL 4 LDL Cholesterol 131 mg/dL 5 Liver 08/17/2018 [facility] Direct Bilirubin 0.00 Low 0.03- 0.[address] mg/[place] [address] [phone] Lipid Profile 08/02/2018 [facility] Triglycerides 208 mg/dL 6 (Trig/Chol/HD [address] L) [place] [address] [phone] Cholesterol 200 mg/dL 7 HDL Cholesterol 38.1 mg/dL 8 LDL Cholesterol 120 mg/dL 9 Comp Metabolic Panel 08/02/2018 [facility] Sodium 136 mmol/L N 135-[address] [place] [address] [phone] Potassium 4.4 mmol/L N 3.5-5.0 Chloride 103 [...] Egfr Non- 73.8 >60 Egfr 89.4 >60 10 Laboratory test 08/02/2018 [facility] Hemoglobin A1c 9.0 % High 4.0-5.[address] (Glyco HGB) [place] [address] [phone] Laboratory test 06/21/2018 [facility] TSH (Thyroid 2.14 N 0.34 -5.[address] Stim Horm) mcIU/[place] [address] [phone] Comp Metabolic 06/21/2018 [facility] Sodium 137 N 135-[address] mmol/[place] [address] [phone] Potassium 4.2 mmol/L N 3.5-5.0 Chloride 101 [...] Egfr Non- 92.1 >60 Egfr 111.5 >60 12 Laboratory test 06/21/2018 [facility] C-Peptide 2.2 ng/mL 1.1 - 4.4 [address] [place] [address] [phone] Lipid Profile 06/21/2018 [facility] Triglycerides 186 mg/dL 14 (Trig/Chol/HDL) [address] [place] [address] [phone] Cholesterol 211 mg/dL 15 HDL Cholesterol 44.1 mg/dL 16 LDL Cholesterol 130 mg/dL 17 Laboratory test 06/21/2018 [facility] Cortisol 5.08 [address] g/[place] [address] [phone] Laboratory test 05/03/2018 [facility] Hemoglobin A1c 11.1 High 5-7 finding Laboratory test 11/02/2017 [facility] Hemoglobin A1c 14 High 5-7 finding Urine 11/02/2017 [facility] Ur Microalbumin 46.[address] (mg/L) [place] [address] [phone] Urine Creatinine 86.59 mg/dL Urine Microalbumin/Creatinine 53.1 High <31 Laboratory 08/02/2017 [facility] Hemoglobin 11.2 % High 4.0- 5.6 19 test finding [address] A1c ([place] [address] HGB) [phone] Laboratory 04/13/2017 [facility] Rapid SEE RESULT 20, test finding [address] Influenza A B BELOW 21 [place] [address] Antigen [phone] Rapid 04/13/2017 [facility] Influenza A NEGATIVE Negative 22 Influenza A & [address] [place] [place] [address] [phone] Influenza B Molecular NEGATIVE Negative Laboratory test 02/21/2017 [facility] Cytology SEE RESULT 23, [address] [place] [address] [phone] Laboratory test 02/21/2017 [facility] Hemoglobin A1c 12.9 High 5-7 finding CBC Auto Diff 02/11/2017 [facility] White Blood 12.2 High 3.5 - [address] Count 10^3/uL 10.8 [place] [address] [phone] Red Blood Count 4.82 10^6/uL N 4.0-5.4 [...] Blood Cells % 0.1 Laboratory test 02/11/2017 [facility] D Dimer 533 ng/mL High Less [address] Quantitative Than 230 [place] [address] [phone] Comp Metabolic 02/11/2017 [facility] Sodium 132 Low 133-[address] mmol/[place] [address] [phone] Potassium 3.9 mmol/L N 3.5-5.0 Chloride 98 [...] Egfr Non- 74.2 >60 Egfr 95.5 >60 26 Laboratory test 02/11/2017 [facility] C Reactive 24.63 High < 5.00 [address] Protein mg/[place] [address] [phone] Urine 10/04/2016 [facility] Urine 145.66 N [address] Creatinine mg/[place] [address] [phone] Ur Microalbumin (mg/L) < 15.0 mg/L N Urine Microalbumin/Creatinine TNP ug/mg N <31 29 Laboratory test 10/04/2016 [facility] Hemoglobin A1c 9.8 High 5-7 finding Laboratory test 08/22/2016 [facility] Hemoglobin A1c 11.3 High 5-7 finding Laboratory test 03/02/2016 [facility] HIV 1&2 AB Nonreactive N Nonreactive [address] [place] [address] [phone] Syphillis Igg W/Reflex RPR Nonreactive N Nonreactive 31 GC/Chlamydia 03/02/2016 [facility] Chlamydia Negative N Negative 32 Amplified Rna [address] [place] [address] [phone] Neisseria gonorrhoeae (GC) Rna Negative N Negative Ua Routine 12/31/2015 [facility] Ua Specific [place] 1.005 Ua PH 6 Ua Color yellow Ua Appera clear Ua WBC neg Ua Protein neg Ua Glucose 1000+ Ua Ketones neg Ua Bilirubin neg Ua Urobilinogen neg Ua Nitrite neg Ua Occult Blood small Laboratory test 10/26/2015 [facility] Hemoglobin A1c 9.1 High 5-7 finding Laboratory test 07/24/2015 [facility] Hemoglobin A1c 10.6 High 5-7 finding CBC Auto Diff 06/06/2015 [facility] White Blood Count 16.3 High 3.5-10.[address] 10^3/[place] [address] [phone] Red Blood Count 5.44 10^6/uL High 4.0-5.4 [...] Nucleated Red Blood Cells % 0 N Urinalysis Profile 06/06/2015 [facility] Urine Color Yellow N [address] [place] [address] [phone] Urine Appearance Clear N Urine Specific [place] 1.036 High 1.010-1.030 Urine pH 5.0 N 5-9 Urine Urobilinogen Negative N Negative Urine Ketones Trace Abnormal Negative Urine Protein Negative N Negative Urine Leukocytes Negative N Negative Urine Blood Negative N Negative Urine Nitrite Negative N Negative Urine Bilirubin Negative N Negative Urine Glucose 3+(>=500 mg/dL) Abnormal Negative Comp Metabolic Panel 06/06/2015 [facility] Sodium 131 mmol/L Low 133-[address] [place] [address] [phone] Potassium 4.0 mmol/L N 3.5-5.0 Chloride 101 [...] 71.3 N >60 Egfr 91.6 N >60 33 Urine Culture 06/06/2015 [facility] Urine Culture SEE RESULT [address] [place] [address] [phone] Laboratory test 06/06/2015 [facility] Point of Care 320 mg/dL High 74-106 [address] [place] [address] [phone] Laboratory test 04/22/2015 [facility] Hemoglobin A1c 9.6 High 5-7 finding GC/Chlamydia 01/20/2015 [facility] Chlamydia Negative N Negative Amplified Rna [address] [place] [address] Rna [phone] Neisseria gonorrhoeae (GC) Rna Negative N Negative 36 Laboratory test 01/20/2015 [facility] Hemoglobin A1c 12.0 High 5-7 finding Laboratory test 10/01/2014 [facility] Wound SEE RESULT 37, [address] Culture/[place] [address] [phone] Lipid Profile 06/11/2014 [facility] Triglycerides 318 mg/dL N 39 (Trig/Chol/HDL) [address] [place] [address] [phone] Cholesterol 211 mg/dL N 40 HDL Cholesterol 44.2 mg/dL N 41 LDL Cholesterol 103 mg/dL N 42 Comp Metabolic Panel 06/11/2014 [facility] Sodium 136 mmol/L N 133-[address] [place] [address] [phone] Potassium 4.5 mmol/L N 3.5-5.0 Chloride 103 [...] 112.3 N >60 Egfr 144.4 N >60 43 Urine Microalbumin 06/11/2014 [facility] Ur Microalbumin 20.0 mg /L N Random [address] (mg/L) [place] [address] [phone] Urine Creatinine 75.70 mg/dL N Urine Microalbumin/Creatinine 26.4 N Less Than 31 Laboratory test 05/09/2014 [facility] Hemoglobin A1c 13.5 High 5-7 finding Laboratory test 08/30/2013 [facility] Hemoglobin A1c 11.1 High 5-7 finding Lipid Profile 04/26/2013 [facility] Triglycerides 241 mg/dL 44 (Trig/Chol/HDL) [address] [place] [address] [phone] Cholesterol 187 mg/dL 45 HDL Cholesterol 37.2 mg/dL 46 LDL Cholesterol 102 mg/dL 47 Laboratory test 04/26/2013 [facility] Hemoglobin 14.4 g/dL 12.0-16.[address] [place] [address] [phone] Hemoglobin A1c 10.2 % High Less than 6.0 48 Comp Metabolic Panel 04/26/2013 [facility] Sodium 138 mmol/L 133-[address] [place] [address] [phone] Potassium 4.8 mmol/L 3.7-5.6 Chloride 104 mmol/L [...] Egfr Non- 96.4 >60 Egfr 123.9 >60 49 Urine Microalbumin 04/26/2013 [facility] Ur Microalbumin 22.0 mg /dL <[address] (mg/L) [place] [address] [phone] Urine Creatinine 113.88 mg/dL Urine Microalbumin/Creatinine 19.3 Less Than 31 Rapid Influenza 03/06/2013 [facility] Rapid Influenza A (SEE NOTE) 51 A B Antigen [address] [place] [address] [phone] Laboratory test 11/14/2012 [facility] TSH (Thyroid 2.04 miu/mL 0.34- finding [address] Stimulating Horm) 5.60 [place] [address] [phone] Free T4 0.80 ng/mL 0.61-1.24 Laboratory test 11/14/2012 [facility] Hemoglobin A1c 8.6 High 5-7 finding Vitamin D, 25 11/14/2012 [facility] 25-Hydroxy Vitamin <4.0 ng/ mL [address] D2 [place] [address] [phone] 25-Hydroxy Vitamin D3 32 ng/mL 25-Hydroxy Vitamin D Total 32 ng/mL 52 Laboratory test 11/14/2012 [facility] Vitamin B12 388 [address] pg/[place] [address] [phone] Laboratory test 05/21/2012 [facility] In House Hemoglobin A1c 8.8 High 5-7 finding Urine 03/28/2012 [facility] Ur Microalbumin 6.0 mg/L [address] (Mg/L) [place] [address] [phone] Urine Creatinine 132.6 mg/dL Urine Microalbumin/Creatinine 4.5 ug/mg Less Than 31 Comp Metabolic Panel 03/28/2012 [facility] Sodium 138 mmol/L 133-[address] [place] [address] [phone] Potassium 4.0 mmol/L 3.5-5.0 Chloride 102 mmol/L [...] Egfr Non- 97.0 >60 Egfr 124.7 >60 54 Laboratory test 03/28/2012 [facility] Glucose 168 mg/dL High 70-100 finding [address] [place] [address] [phone] Lipid Profile 03/28/2012 [facility] Triglycerides 156 mg/dL 40-200 (Trig/Chol/HDL) [address] [place] [address] [phone] Cholesterol 199 mg/dL Less than 200 HDL Cholesterol 43 mg/dL 40-60 55 Cholesterol/HDL Ratio 4.6 Average High 1-4.44 LDL Cholesterol 124.8 mg/dL High Less Than 100 56 Laboratory test 03/14/2012 [facility] In House Hemoglobin A1c 8.9 High 5-7 finding Order 03/14/2012 [facility] In-House peak flow x 3 275,300,30 0 Rapid Influenza A 02/22/2012 [facility] Rapid Influenza A (SEE NOTE) 57 B Antigen 101 [facility] [place] [address] [phone] Comp Metabolic 02/22/2012 [facility] Sodium 136 mmol/L 133- 145 Panel [address] [place] [address] [phone] Potassium 4.1 mmol/L 3.5-5.0 Chloride 103 mmol/L [...] Egfr Non- 83.1 >60 Egfr 106.9 >60 58 CBC Auto 02/22/2012 [facility] White Blood 12.7 10^3/uL High 4.8-10.[address] [place] [address] [phone] Red Blood Count 4.84 10^6/uL 4.0-5.4 Hemoglobin [...] Cells % 0 Laboratory test finding 05/12/2011 [facility] In House Hemoglobin A1c 7.3 High 5 -7 1 Because ethnic data is not always readily [...] 15-29 5 Kidney failure <15 (or dialysis) 2 Desirable: <150 Borderline High: 150-199 High: 200-499 Very High: >500 3 Desirable: <200 Borderline High: 200-239 High: >239 4 Low: <40 Desirable: 40-60 High: >60 5 Desirable: <100 Near Optimal: 100-129 Borderline High: 130-159 High: 160-189 Very High: >189 6 Desirable: <150 Borderline High: 150-199 High: 200-499 Very High: >500 7 Desirable: <200 Borderline High: 200-239 High: >239 8 Low: <40 Desirable: 40-60 High: >60 9 Desirable: <100 Near Optimal: 100-129 Borderline High: 130-159 High: 160-189 Very High: >189 10 Because ethnic data is not always [...] 5 Kidney failure <15 (or dialysis) 11 Therapeutic target for the treatment of diabetes mellitus patients is <7% HBA1C, and in selective patients <6.0%. Please refer to [place] [employer] diabetic care guidelines for further information. 12 Because ethnic data is not always readily [...] 15-29 5 Kidney failure <15 (or dialysis) 13 Test Performed by: [facility] [address] [place] [address] 14 Desirable: <150 Borderline High: 150-199 High: 200-499 Very High: >500 15 Desirable: <200 Borderline High: 200-239 High: >239 16 Low: <40 Desirable: 40-60 High: >60 17 Desirable: <100 Near Optimal: 100-129 Borderline High: 130-159 High: 160-189 Very High: >189 18 AM 8.7-22.4 PM <10 19 Therapeutic target for the treatment of diabetes mellitus patients is <7% HBA1C, and in selective patients <6.0%. Please refer to [place] [employer] diabetic care guidelines for further information. 20 [id number] 21 SEE RESULT BELOW Name: MARYA PINA : [address]: Tuyet Alvarado NP Acct: [id number] Unit: [id number] AGE: 36 Location: [facility] Re04/13/17 SEX: F Status: REG REF SPEC: [id number] LAMBERTO: 04/13/17-[address]: Tuyet Alvarado NP REQ: [id number] RECD: 04/13/17 STATUS: COMP _ SOURCE: FAROOQ SPDESC: ORDERED: Flu A B Request COMMENTS: [id number] Procedure Result Reported Site Rapid Influenza A B Request Final 04/13/17- 1950 ML Specimen received for Influenza A/B Molecular testing * ML - MAIN LAB ([facility]) . END OF REPORT * ML=Testing performed at Main Lab DEPARTMENT OF PATHOLOGY, [address] [place] [address] Reese Fu M.D. Director [facility] # [id number] 22 [employer]: [id number] SEE RESULT BELOW Name: MARYA PINA I : [address]: Karla Rich MD Acct: [id number] Unit: [id number] AGE: 36 Location: [facility] Re02/21/17 SEX: F Status: REG REF SPEC: [id number] LAMBERTO: 02/21/[address]: Karla Rich MD REQ: [id number] RECD: 02/21/17 STATUS: SOUT _ ORDERED: TP IMAGE ANAL, HPV/Thin Prep, HPV 16/18 GENE COMMENTS: [id number] Negative for Intraepithelial lesion or Malignancy A. [...] was evaluated with the assistance of the ThinPrep Test Imaging System. Due to cytologic findings at the food stand manager microscope, comprehensive manual rescreening by a Food Preparation Worker may be required. The Pap Smear is [...] performed at Main Lab DEPARTMENT OF PATHOLOGY, [address] [place] [address] Reese Fu M.D. Director [facility] # [id number] 25 Please note: The following may produce a false positive D Dimer test: - Rheumatoid factor greater than 60 IU/ml - Plasma hemoglobin greater than 0.05 gm/dl - Bilirubin greater than 50 mg/dl - Lipids greater than 1000 mg/dl - FDP greater than 20 ug/ml 26 Because ethnic data is not always readily [...] 15-29 5 Kidney failure <15 (or dialysis) 27 Acute inflammation: >10.00 28 [id number] 29 Unable to calculate due to low microalbumin 30 It is recognized that currently available assays [...] 95% confidence interval of 99.78 to 99.96%. 31 Warning: A positive result is not useful for establishing a diagnosis of syphilis. In most situations, such a result may reflect a prior treated infection; a negative result can exclude a diagnosis of syphilis except for incubating or early primary disease. 32 [id number] 33 Because ethnic data is not always [...] 5 Kidney failure <15 (or dialysis) 34 SEE RESULT BELOW Name: MARYA PINA I : [address]: Ana Jeffers MD Acct: [id number] Unit: [id number] AGE: 34 Location: ED Re06/06/15 SEX: F Status: DEP ER SPEC: [id number] LAMBERTO: 06/06/[address] [facility] DR: Heidi [place] MD REQ: [id number] RECD: 06/06/15 STATUS: EDUARDO LANGFORD DR: [facility] Karla Rich MD _ SOURCE: URINE SPDESC: ORDERED: Urine Culture Procedure Result Reported Site Urine Culture Final 06/07/15- 1122 ML No growth of clinically significant organisms * ML - MAIN LAB ([facility]) . END OF REPORT * ML=Testing performed at Main Lab DEPARTMENT OF PATHOLOGY, [address] [place] [address] Reese Fu M.D. Director [facility] # [id number] 35 RYLEE JOHNSON to be notified [employer]: [id number] CHUY STEPHEN 36 Female urine specimens have been self-validated by [facility] and have been granted conditional assay approval by [facility]. 37 Comment: right félix martinez 38 SEE RESULT BELOW Name: MARYA PINA I : [address]: Ana Jeffers MD Acct: [id number] Unit: [id number] AGE: 34 Location: ED Re10/01/14 SEX: F Status: DEP ER SPEC: [id number] LAMBERTO: 10/01/[address] [facility] DR: Brian ELIZABETH REQ: [id number] RECD: 10/01/14 STATUS: EDUARDO CHO DR: Ana Jeffers MD _ SOURCE: ALEXANDRE SHEFF[facility]: ORDERED: Culture Stain COMMENTS: Comment: right armpit [...] performed at Main Lab DEPARTMENT OF PATHOLOGY, [address], [place], [place] [address] Reese Fu M.D. Director [facility] # [id number] Patient: MARYA PINA Funmilayo [id number] (Continued) Specimen: [id number] Collected: 10/01/14-1729 Received: 10/01/14-1810 (Continued) Procedure Result Verified Site Wound/Misc Culture Final (continued) 10/03/14- 1001 1. STAPHYLOCOCCUS AUREUS (continued) M.I.C. RX --------- ------ Imipenem-Deduced S * Ampicillin/Sulbactam-Deduced S Cefazolin-Deduced S * These antibiotics are not available in the [facility] Formulary Contact the Microbiology Department for any additional antibiotic reporting. * ML - MAIN LAB ([facility]) . END OF REPORT * ML=Testing performed at Main Lab DEPARTMENT OF PATHOLOGY, [address] [place] [address] Reese Fu M.D. Director [facility] # [id number] 39 Desirable <150 Borderline high 150-199 High 200-499 Very High >500 40 Desirable <200 Borderline high 200-239 High >239 41 Low <40 Desirable: 40-60 High: >60 42 Desirable: <100 mg/dL Near Optimal: 100-129 mg/dL Borderline High: 130-159 mg/dL High: 160-189 mg/dL Very High: >189 mg/dL 43 Because ethnic data is not always readily [...] 15-29 5 Kidney failure <15 (or dialysis) 44 Desirable <150 Borderline high 150-199 High 200-499 Very High >500 45 Desirable <200 Borderline high 200-239 High >239 46 Low <40 Desirable: 40-60 High: >60 47 Desirable <100 Near Optimal 100-129 Borderline high 130-159 High 160-189 Very High >189 48 Therapeutic target for the treatment of diabetes Mellitus patients is <7% HBA1C, and in selective patients <6.0%.Please refer to [place] [employer] Diabetic care guidelines for further information. 49 Because ethnic data is not always readily [...] 15-29 5 Kidney failure <15 (or dialysis) 50 Microalbuminuria in a random sample is defined as: Microalbumin/Creatinine ratio of 30-299 ug/mg. 51 RUN DATE: 03/06/13 [facility] LAB LIVE PAGE 1 RUN TIME: 99[address] [place], [place] [address] Specimen Inquiry Name: MARYA PINA I : [address]: Damien Argueta DO Acct: [id number] Unit: [id number] AGE: 32 Location: ED Re03/06/13 SEX: F Status: REG ER SPEC: [id number] LAMBERTO: 03/06/13-[address] [facility] DR: Babs ARTHUR REQ: [id number] RECD: 03/06/13 STATUS: EDUARDO LANGFORD DR: Damien Doan MD _ SOURCE: FAROOQ [facility]: ORDERED: Rapid Flu A B Procedure Result [...] performed at Main Lab DEPARTMENT OF PATHOLOGY, [address] [place], [place] [address] Reese Fu M.D. Director [facility] Permit #[id number] 52 -- REFERENCE VALUE -- 25-HYDROXY D TOTAL (D2+D3) Optimum levels in the healthy population are 20-50, patients with bone disease may benefit from higher levels within this range. Test Performed by: [facility] - [address] [address] [facility] [employer]: Krish Mckinnon III, M.D. 53 Microalbuminuria in a random sample is defined as: Microalbumin/Creatinine ratio of 30-299 ug/mg. 54 Because ethnic data is not always readily [...] 15-29 5 Kidney failure <15 (or dialysis) 55 HDL Interpretation: Undesirable: High Risk: Less than 40 MG/DL Desirable: Low Risk: Greater than 60 MG/DL 56 LDL Interpretation: Low Risk Optimal Level: LDL Less than 100 MG/DL Near or Above Optimal: LDL 100-129 MG/DL Borderline High Risk: LDL 130-159 MG/DL High Risk: LDL 160-189 MG/DL Very High Risk: LDL Greater than 189 MG/DL 57 RUN DATE: 02/22/12 [facility] LAB LIVE PAGE 1 RUN TIME: [address] [place], [place] [address] Specimen Inquiry Name: MARYA PINA I : [address]: Sukumar Madera DO Acct: [id number] Unit: [id number] AGE: 31 Location: ED Re02/22/12 SEX: F Status: REG ER SPEC: [id number] LAMBERTO: 02/22/12-[address] [facility] DR: Deepthi Corona RPA REQ: [id number] RECD: 02/22/12 STATUS: EDUARDO LANGFORD DR: Sukumar Madera DO, MD,[facility] _ SOURCE: FAROOQ [facility]: ORDERED: Rapid Flu A B Procedure Result [...] performed at Main Lab DEPARTMENT OF PATHOLOGY, [address] [place] [address] Reese Fu M.D. Director [facility] Permit #[id number] 58 Because ethnic data is not always [...] dialysis) Procedures Date Code Description Status 10/12/2017 35968 Diffusing Capacity Completed 10/12/2017 24360 Plethysmography Determination Lung Volumes & Per Completed Airway Resist 10/12/2017 92687 Pulmonary Function><Bronchodil Completed 08/10/2017 [id number] Diabetic Retinal Eye Exam Completed 08/02/2017 08804 ECHO Transthorasic Realtime 2D W Doppler & Color Flow Completed Hosp 04/25/2016 [id number] Diabetic Retinal Eye Exam Completed 01/21/2015 [id number] Diabetic Retinal Eye Exam Completed 09/20/2012 79581 Polysomnography Sleep Staging 4+ Parameters Completed 03/28/2012 84853 Pulmonary Function><Bronchodilator Completed Encounters Type Date Location Provider Dx Diagnosis Office Visit 08/17/2018 [facility] Internal Tuyet Alvarado, E78.00 Pure 10:20a Medicine - [facility] N.P. 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 general adult medical exam w abnormal findings E11.40 Type 2 diabetes mellitus with diabetic neuropathy, unsp E11.65 Type 2 diabetes mellitus with hyperglycemia J45.901 Unspecified asthma with (acute) exacerbation L03.116 Cellulitis of left lower limb L02.416 Cutaneous abscess of left lower limb F17.210 Nicotine dependence, cigarettes, uncomplicated Z79.4 [facility] (current) use of insulin E66.01 Morbid (severe) obesity due to excess calories Z68.43 Body mass index (BMI) 50-59.9, adult G47.33 Obstructive sleep apnea (adult) (pediatric) I89.0 Lymphedema, not elsewhere classified Office Visit 12/19/2017 1:40p [facility] Internal Tuyet Alvarado, I89.0 Lymphedema, not Medicine - N.P. elsewhere [facility] classified L03.818 Cellulitis of other sites Office Visit 11/02/2017 10:40a [facility] Internal Tuyet Alvarado, Z79.84 [facility] Medicine - N.P. (current) use of [facility] oral hypoglycemic drugs Z79.4 [facility] (current) use of insulin E11.65 Type 2 diabetes mellitus with hyperglycemia J20.9 Acute bronchitis, unspecified Office Visit 09/28/2017 [facility] J45.909 Unspecified asthma , 1:00p [facility] uncomplicated [facility] F17.200 Nicotine dependence, unspecified, uncomplicated G47.33 Obstructive sleep apnea (adult) (pediatric) E66.01 Morbid (severe) obesity due to excess calories Z68.43 Body mass index (BMI) 50-59.9 , adult Office Visit 09/13/2017 2:20p [facility] Tuyet Alvarado, I89.0 Lymphedema, not Medicine - N.P. elsewhere [facility] classified E11.65 Type 2 diabetes mellitus with hyperglycemia Office Visit 08/24/2017 9:40a [facility] Tuyet Alvarado, I89.0 Lymphedema, not Medicine - N.P. elsewhere [facility] classified E11.65 Type 2 diabetes mellitus with hyperglycemia J45.22 Mild intermittent asthma with status asthmaticus K21.9 Gastro-esophageal reflux disease without esophagitis Office Visit 08/07/2017 11:20a [facility] Tuyet Alvarado, E11.65 Type 2 diabetes Medicine - N.P. mellitus with [facility] hyperglycemia H92.09 Otalgia, unspecified ear Z68.44 Body mass index (BMI) 60.0-69.9, adult Office Visit 07/14/2017 1:40p [facility] Tuyet Alvarado, E11.65 Type 2 diabetes Medicine - N.P. mellitus with [facility] hyperglycemia E11.40 Type 2 diabetes mellitus with diabetic neuropathy, unsp I89.0 Lymphedema, not elsewhere classified J45.40 Moderate persistent asthma, uncomplicated J20.9 Acute bronchitis, unspecified Office Visit 05/22/2017 2:20p [facility] Shane Anderson, J01.90 Acute sinusitis, Medicine - [facility] SLINGER SEQUINS unspecified J20.9 Acute bronchitis, unspecified Office Visit 04/13/2017 11:40a [facility] Tuyet Alvarado, F17.200 Nicotine Medicine - N.P. dependence, [facility] unspecified, uncomplicated J20.9 Acute bronchitis, unspecified E11.65 Type 2 diabetes mellitus with hyperglycemia Office Visit 03/30/2017 9:00a [facility] Shane Monica, I82.819 Embolism and Medicine - [facility] SLINGER SEQUINS thrombosis of superficial vn unsp low extrm J01.90 Acute sinusitis, unspecified Office Visit 02/21/2017 8:00a [facility] Karla Z00.00 Encntr for Medicine - [facility]anche[facility]a Rich M.D. general adult medical exam w/o abnormal findings Z12.4 Encounter for screening for malignant neoplasm of cervix E11.65 Type 2 diabetes mellitus with hyperglycemia Z72.0 Tobacco use I82.819 Embolism and thrombosis of superficial vn unsp low extrm R05 Cough F32.89 Other specified depressive episodes Office Visit 02/14/2017 8:40a [facility] Karla I82.819 Embolism and Medicine - [place] Rich thrombosis of [facility] superficial vn unsp low extrm E11.65 Type 2 diabetes mellitus with hyperglycemia Office Visit 12/09/2016 11:40a [facility] Internal Medicine - Tuyet Alvarado, N.P. R05 Cough [facility] R07.89 Other chest pain Office Visit 11/29/2016 10:20a [facility] Tuyet Alvarado, J45.41 Moderate Medicine - N.P. persistent asthma [facility] with (acute) exacerbation E11.65 Type 2 diabetes mellitus with hyperglycemia F17.218 Nicotine dependence, cigarettes, w oth disorders Office Visit 11/11/2016 10:20a [facility] Tuyet Alvarado, J20.9 Acute bronchitis, Medicine - [facility] N.P. 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 bilateral upper limbs G56.23 Lesion of ulnar nerve, bilateral upper limbs Office Visit 10/04/2016 1:00p [facility] Internal Tuyet Alvarado, E11.65 Type 2 diabetes Medicine - N.P. mellitus with [facility] hyperglycemia J45.30 Mild persistent asthma, uncomplicated J30.9 Allergic rhinitis, unspecified M79.641 Pain in right hand Z23 Encounter for immunization Office Visit 08/22/2016 2:00p [facility] Tuyet Alvarado, E11.65 Type 2 diabetes Medicine - N.P. mellitus with [facility] hyperglycemia J20.9 Acute bronchitis, unspecified Office Visit 04/29/2016 1:00p [facility] Tuyet Alvarado, R19.7 Diarrhea, Medicine - N.P. unspecified [facility] J20.9 Acute bronchitis, unspecified Office Visit 03/02/2016 11:20a [facility] Tuyet Alvarado, F43.23 Adjustment Medicine - N.P. disorder with [facility] mixed anxiety and depressed mood B37.3 Candidiasis of vulva and vagina Z11.3 Encntr screen for infections w sexl mode of transmiss R19.7 Diarrhea, unspecified Office Visit 12/31/2015 10:40a [facility] Tuyet Castrejoncarlin, J20.9 Acute bronchitis, Medicine - N.P. unspecified [facility] M54.89 Other dorsalgia Office Visit 10/26/2015 10:00a [facility] Tuyet Castrejoncarlin, Z79.4 [facility] Medicine - [facility] N.P. (current) use of insulin E11.65 Type 2 diabetes mellitus with hyperglycemia F17.210 Nicotine dependence, cigarettes, uncomplicated H66.93 Otitis media, unspecified, bilateral Office Visit 08/17/2015 11:40a [facility] Tuyet Castrejoncarlin, B37.0 Candidal Medicine - [facility] N.P. stomatitis J20.9 Acute bronchitis, unspecified J45.901 Unspecified asthma with (acute) exacerbation Office Visit 07/24/2015 10:00a [facility] Tuyet Castrejoncarlin, J20.9 Acute bronchitis, Medicine - N.P. unspecified [facility] E11.65 Type 2 diabetes mellitus with hyperglycemia Office Visit 06/11/2015 2:40p [facility] Wilfredo Haile R10.13 Epigastric pain Roberto Patel M.D. [facility] Office Visit 04/22/2015 10:00a [facility] Tuyet Christiano, E11.65 Type 2 diabetes Medicine - N.P. mellitus with [facility] hyperglycemia I80.02 Phlebitis and thombophlb of superfic vessels of l low extrem J30.9 Allergic rhinitis, unspecified F17.210 Nicotine dependence, cigarettes, uncomplicated Office Visit 01/20/2015 11:20a [facility] Tuyet Christiano, Z11.3 Encntr screen for Medicine - [facility] N.P. infections w sexl mode of transmiss E11.65 Type 2 diabetes mellitus with hyperglycemia I10 Essential (primary) hypertension F17.210 Nicotine dependence, cigarettes, uncomplicated Z23 Encounter for immunization Office Visit 12/17/2014 11:20a [facility] Tuyet Christiano, Z79.4 [facility] Medicine - [facility] N.P. (current) use of insulin E11.65 Type 2 diabetes mellitus with hyperglycemia J20.9 Acute bronchitis, unspecified I10 Essential (primary) hypertension L02.421 Furuncle of right axilla L02.422 Furuncle of left axilla F17.210 Nicotine dependence, cigarettes, uncomplicated Office Visit 05/09/2014 1:00p [facility] Tuyet Alvarado, 250.02 Diabetes Medicine - [facility] N.P. Mellitus W/O Compl Type II Or Unspec Type Uncontrol 401.1 Hypertension Benign 305.1 Tobacco Use Disorder 311 Depressive Disorder Not Elsewhere Spec 493.90 Asthma Unspec W/O Status Asthmaticus 477.9 Rhinitis Allergic Cause Unspec 110.1 Dermatophytosis Nail 466.0 Bronchitis Acute 493.92 Asthma Unspec W/ Acute Exacerbation V58.67 Long-Term Use Of Insulin Office Visit 09/12/2013 10:30a [facility] Cassidy Lua, 250.02 Diabetes Medicine - N.P. Mellitus W/O [facility] Compl Type II Or Unspec Type Uncontrol 278.01 Obesity Morbid Office Visit 08/30/2013 11:20a [facility] Cristina Garcia, 250.02 [facility] Mellitus W/O Compl Type II Or Unspec Type Uncontrol 382.9 Otitis Media Unspec 477.9 Rhinitis Allergic Cause Unspec Office Visit 05/03/2013 11:00a [facility] Cristina Garcia, 250.02 Diabetes Medicine - [facility] M.D. Mellitus W/O Compl Type II Or Unspec Type Uncontrol 381.4 Otitis Media Acute Or Chronic Nonsuppurative 278.01 Obesity Morbid 305.1 Tobacco Use Disorder 327.23 Obstructive Sleep Apnea Adult & Pediatric Office Visit 04/15/2013 10:20a [facility] Cristina Garcia, 493.90 Asthma Unspec W/O Medicine - M.D. Status Asthmaticus [facility] 466.0 Bronchitis Acute 381.4 Otitis Media Acute Or Chronic Nonsuppurative 250.02 Diabetes Mellitus W/O Compl Type II Or Unspec Type Uncontrol Office Visit 01/22/2013 11:20a [facility] Tuyet Alvarado, 466.0 Bronchitis Acute Medicine - [facility] N.P. 381.81 Eustachian Tube Dysfunction Office Visit 01/07/2013 9:40a [facility] Tuyet Alvarado, 466.0 Bronchitis Acute Medicine - [facility] N.P. 686.8 Local Infection Skin & Subcutaneous Tissue Other Spec 727.03 Trigger Finger Acquired Office Visit 11/28/2012 11:00a [facility] Cristina Garcia, 493.90 Asthma Unspec W/O Medicine - M.D. Status Asthmaticus [facility] Office Visit 11/14/2012 2:40p [facility] Cristina Garcia, 250.02 Diabetes Mellitus Medicine - M.D. W/O Compl Type II [facility] Or Unspec Type Uncontrol 278.01 Obesity Morbid 311 Depressive Disorder Not Elsewhere Spec 782.0 Skin Sensation Disturbance Office Visit 10/29/2012 8:40a [facility] Cristina Garcia, 278.01 Obesity Morbid Medicine - [facility] M.D. 729.5 Pain In Limb 250.02 Diabetes Mellitus W/O Compl Type II Or Unspec Type Uncontrol 311 Depressive Disorder Not Elsewhere Spec Office Visit 08/17/2012 11:00a [facility] Cristina Garcia, 305.1 Tobacco Use Medicine - [facility] M.D. Disorder 278.01 Obesity Morbid 729.5 Pain In Limb Office Visit 07/18/2012 4:17p Alethea Castellanos 786.09 Dyspnea & Disorder [facility] Abnormalities Other Office Visit 06/25/2012 11:40a [facility] Internal Cristina Garcia, 278.01 Obesity Morbid Medicine - M.D. [facility] 305.1 Tobacco Use Disorder 250.02 Diabetes Mellitus W/O Compl Type II Or Unspec Type Uncontrol Office Visit 05/21/2012 9:20a [facility] Cristina Garcia, 250.02 Diabetes Medicine - [facility] M.DJessica Mellitus W/O Compl Type II Or Unspec Type Uncontrol 493.90 Asthma Unspec W/O Status Asthmaticus 305.1 Tobacco Use Disorder 278.01 Obesity Morbid 401.1 Hypertension Benign 307.49 Sleep Disorder Other 382.9 Otitis Media Unspec V03.82 Streptococcus Pneumoniae Vaccination Spec Other Office Visit 03/28/2012 1:40p [facility] Emiliano Garcia, 250.02 Diabetes Medicine - [facility] M.D. Mellitus W/O Compl Type II Or Unspec Type Uncontrol 493.90 Asthma Unspec W/O Status Asthmaticus 305.1 Tobacco Use Disorder Office Visit 03/14/2012 2:20p [facility] Cristina Garcia, 250.02 Diabetes Medicine - [facility] M.D. Mellitus W/O Compl Type II Or Unspec Type Uncontrol 278.01 Obesity Morbid 305.1 Tobacco Use Disorder 493.90 Asthma Unspec W/O Status Asthmaticus 401.1 Hypertension Benign 307.49 Sleep Disorder Other 521.08 Dental Caries-Root Surface Office Visit 01/18/2012 9:40a [facility] Tuyet Alvarado, 682.8 Cellulitis & Medicine - N.P. Abscess Other [facility] Spec Sites Office Visit 05/12/2011 9:30a [facility] Constance Larkin, 278.01 Obesity Morbid Medicine - M.D. [facility] 477.9 Rhinitis Allergic Cause Unspec 250.02 Diabetes Mellitus W/O Compl Type II Or Unspec Type Uncontrol 305.1 Tobacco Use Disorder Plan of Treatment Future Appointment(s):10/23/2018 2:30 pm - Felice Billingsley M.D. at [facility]10/09/2018 8:15 am - Joshua Arita MD at [facility]04/19/2019 11:00 am - Tuyet Alvarado NJessicaPJessica at [facility] 9:40 am - Luis Murdock MD at [facility]09/17/2018 - Felice Billingsley M.D.G62.9 Polyneuropathy, unspecifiedNew Medication:Lyrica 50 mg - 1 by mouth twice a day for 2 weeks then 2 twice a dayLyrica 25 mg - 1 by mouth every night at bedtime for 1 week then 1 twice a day for 1 week then 2 twice a day mdd 4New Orders:EMG w/Nerve Conduct Study, Lower, Ordered: 09/17/18EMG w/Nerve Conduct Study, Upper, Ordered : 09/17/18Follow up:1-2 MONTHSRecommendations:Titrate Gabapentin 300 mg to one capsule three times a day for one week, then decrease to one capsule twice a day for one week, then [id number] Migraine without aura, not intractable , without status migraNew Medication:Topiramate 25 mg - 1 qhs for 1 week then 2 qhs for 1 week then 3 qhs for 1 week then 4 qhs
--- OUTSIDE RECORDS SUMMARY | 2018-09-30 18:07 | XMS REPORT | Continuity of Care Document ---
:1980 External Reference #:[id number] Author Name Yenifer Bauman Care Team Providers Name Role Phone Karla Rich MD Primary Care Physician Unavailable Payers Date Identification Numbers Payment Provider Subscriber Policy Number: [id number] [employer] Medicaid Marya Pina Group Name: [id number] [address] [address] PayID: [id number] [place] [address] Expires: 2017 Policy Number: [id number] Medicaid Marya Pina Group Name: 1 1 [address] PayID: [id number] [place] [address] Effective: 2016 Policy Number: [id number] [employer] Medicaid Marya Pina Expires: 2017 PayID: [id number] [address] [address] [place] [address] Problems Active Problems Provider Date Type II [...] Calcium take 1 tablet by 90tabs E78.00 [place] 20mg mouth at bedtime Varn, N.P. 9 Tablets Ibuprofen 1 by mouth every 90tabs M54.5 [place] 600mg Tablets 6 hours as needed Varn, N.P. 9 for pain Advair Diskus inhale 1 dose by 60units J45.41 [place] 500-50mcg/Dose mouth twice daily Varn, N.P. 9 Aerosol (not taking) Humulin N 40 units QHS or 20ml E11.65 [facility], 100Unit/ML Suspension as directed, MDD 9 60 Humulin R 40 units tid-ac 50ml [facility], 100Unit/ML Solution or as directed, MD Blake MDD 180 Onetouch Verio test four times 150units [facility], Strips daily and as MD Blake needed Onetouch Ultrasoft use to test blood 300units [facility], Lancets glucose three MD Blake Misc times a day and as needed Ozempic Hold On File, 1mg 3ml E11.65 [facility], 1mg/Dose Solution injection once MD Blake Pen-Inject weekly, hold on file for second month Amitriptyline HCL 2 tablets, (20 60tabs E11.40 [facility], 10mg Tablets mg) at bedtime MD Blake Insulin Syringe/0.5ML/30G 4 times daily for 150units E11.40 [facility], X 1/2" insulin MD Blake 30G X 1/2" 0.5 ML [facility] Gl[facility] Monitoring test blood sugars 1units E11.65 [place] System once fasting and Varn, N.P. 9 W/Device Kit 2 hours after dinner meal Blood Glucose Test test blood sugar 100units E11.65 Tuyet Strips fasting in in the Varn, N.P. 9 morning and 2 hours after dinner meal Lancet Device use when testing 100units E11.65 Tuyet [facility] blood gluose Varn, N.P. 9 Pantoprazole Sodium [...] 8 Day Hydrochlorothiazide Take One Tablet 30tabs [place] 25mg By Mouth Every Varn, N.P. 8 Tablets Day Glucose Meter Test Strips for use 3-4 times 100units [place] Advanced daily Varn, N.P. 8 Strips Gabapentin 2 capsules 3 180caps E11.40 [place] 300mg Capsules times daily Varn, N.P. 8 Nebulizer use three times a 1units [place] Kit/Tubing/Mouthpiece day as needed Varn, N.P. 8 Kit Fluoxetine HCL Take One Capsule 30caps F43.23 [place] 20mg Capsules By Mouth Every Varn, N.P. 8 Day Montelukast Sodium Take One Tablet 30tabs J45.41 [place] 10mg Tablets By Mouth Every Varn, N.P. 7 Day Freestyle Lancets test up to 2 300units [place] Misc times a day or as Varn, N.P. 7 needed Metformin HCL ER Take 4 Tablets By 120tabs E11.65 [place] 500mg Tablets Mouth With Dinner Varn, N.P. 7 ER 24HR Fluconazole Take 1 Tablet By 2tabs [place] 150mg Tablets Mouth Then May Varn, N.P. 7 Repeat In 3 Days as Needed Simethicone 1 by mouth after 30caps R19.7 [place] 180mg Capsules each meal Varn, N.P. 7 Ventolin HFA Inhale Two Puffs 18units [place] 108(90Base) By Mouth Four Varn, N.P. 6 mcg/Act Aerosol Times A Day as Needed Freestyle Lite Blood check fingerstick 1units E11.65 [place] Glucose Monitoring System three times daily Varn, N.P. 6 or as needed, DX Device - E11.65 Ipratropium inhale the 180units J20.9 [place]/Albuterol Sulfate contents of one Varn, N.P. 6 vial via 0.5-2.5(3)mg/3ML Solution nebulizer three times a day as needed for asthma Nebulizer use three times a 1units J20.9 [place] Device day as needed Varn, N.P. 6 Senna Laxative 1 tab by mouth 15tabs K59.00 Noemy 25mg Tablets 1-2 times as MD Graeme 6 needed Compression Stockings knee high 2units I80.02 [place] Misc stockings 20 - 30 Varn, N.P. 6 mm Cetirizine HCL 1 by mouth every 30tabs J30.9 [place] 10mg Tablets day Varn, N.P. 6 Ramipril Take One Capsule 30caps I10 [place] 5mg Capsules By Mouth Every Varn, N.P. 5 Day Fluticasone Propionate [place] One [place] 16units [place] In Each Nostril Varn, N.P. 4 50mcg/Act [...] 2 twice a day mdd 4 Pen [place] 1/2" use 1 pen needle 3 100units [...] Doxycycline Hyclate one tablet twice 20caps J01.90 hSane Anderson NP 2017 - daily for 10 [...] - times a day, swish N.P. 07/26/2015 [id number] and swallow for 14 Suspension days Azithromycin two tabs day one, 6tabs J20.9 Tuyet Christiano, 08/17/2015 - 250mg one daily till N.P. 08/27/2015 Tablets gone Fluconazole one by mouth july 2tabs Tuyet Castrejoncarlin, 08/17/2015 - 150mg repeat in 3 days N.P. 01/03/2016 Tablets as needed Prednisone 5tabx 2days,4 30tabs [place] 08/02/2015 - 10mg [id number] Bereket Rubin 08/17/2015 Tablets [id number] ays,1tabxday. Benzonatate one by mouth three 30caps [...] N.P. 05/19/2014 Capsules needed for cough Pen [place] 05/19" use with insulin 90units Tuyet Alvarado, [...] 50mcg/Act nostril twice 05/16/2011 Suspension daily Ipratropium [place] instill 2 sprays 30ml Unknown - in [...] CPT Code Status Date Vaccine Lot # [id number] Given 10/04/2016 Tdap - Tetanus/Diptheria/Acellular Pertussis [id number] Given 01/20/2015 Flu Vaccine Split Virus Preservative Free For [id number] Indiv [id number] Older [id number] Given 05/21/2012 Pneumonia Vaccine [id number] Vital Signs Date Vital Result Comment 09/17/2018 [...] H/L Range Note Lipid Panel - 08/17/2018 [facility] Creatine 172 U/L N 10-[address] Kinase(CK) [place] [address] [phone] Comp Metabolic 08/17/2018 [facility] Sodium 138 mmol/L N 135- [address] [place] [address] [phone] Potassium 4.5 mmol/L N 3.5-5.0 Chloride 103 [...] Egfr 101.0 >60 1 Lipid Profile 08/17/2018 [facility] Triglycerides 180 mg/dL 2 (Trig/Chol/HDL) [address] [place] [address] [phone] Cholesterol 209 mg/dL 3 HDL Cholesterol 42.0 mg/dL 4 LDL Cholesterol 131 mg/dL 5 Liver 08/17/2018 [facility] Direct Bilirubin 0.00 Low 0.03- 0.[address] mg/[place] [address] [phone] Lipid Profile 08/02/2018 [facility] Triglycerides 208 mg/dL 6 (Trig/Chol/HD [address] L) [place] [address] [phone] Cholesterol 200 mg/dL 7 HDL Cholesterol 38.1 mg/dL 8 LDL Cholesterol 120 mg/dL 9 Comp Metabolic Panel 08/02/2018 [facility] Sodium 136 mmol/L N 135-[address] [place] [address] [phone] Potassium 4.4 mmol/L N 3.5-5.0 Chloride 103 [...] Egfr 89.4 >60 10 Laboratory test 08/02/2018 [facility] Hemoglobin A1c 9.0 % High 4.0-5.6 [address] (Glyco HGB) [place] [address] [phone] Laboratory test 06/21/2018 [facility] TSH (Thyroid 2.14 N 0.34 -5.[address] Stim Horm) mcIU/[place] [address] [phone] Comp Metabolic 06/21/2018 [facility] Sodium 137 N 135-[address] mmol/[place] [address] [phone] Potassium 4.2 mmol/L N 3.5-5.0 Chloride 101 [...] Egfr 111.5 >60 12 Laboratory test 06/21/2018 [facility] C-Peptide 2.2 ng/mL 1.1 - 4.4 [address] [place] [address] [phone] Lipid Profile 06/21/2018 [facility] Triglycerides 186 mg/dL 14 (Trig/Chol/HDL) [address] [place] [address] [phone] Cholesterol 211 mg/dL 15 HDL Cholesterol 44.1 mg/dL 16 LDL Cholesterol 130 mg/dL 17 Laboratory test 06/21/2018 [facility] Cortisol 5.08 [address] g/[place] [address] [phone] Laboratory test 05/03/2018 [facility] Hemoglobin A1c 11.1 High 5-7 finding Laboratory test 11/02/2017 [facility] Hemoglobin A1c 14 High 5-7 finding Urine 11/02/2017 [facility] Ur Microalbumin 46.[address] (mg/L) [place] [address] [phone] Urine Creatinine 86.59 mg/dL Urine Microalbumin/Creatinine 53.1 High <31 Laboratory 08/02/2017 [facility] Hemoglobin 11.2 % High 4.0- 5.6 19 test finding [address] A1c ([place] [address] HGB) [phone] Laboratory 04/13/2017 [facility] Rapid SEE RESULT 20, test finding [address] Influenza A B BELOW 21 [place] [address] Antigen [phone] Rapid 04/13/2017 [facility] Influenza A NEGATIVE Negative 22 Influenza A & [address] Molecular [place] [address] [phone] Influenza B Molecular NEGATIVE Negative Laboratory test 02/21/2017 [facility] Cytology SEE RESULT 23, [address] [place] [address] [phone] Laboratory test 02/21/2017 [facility] Hemoglobin A1c 12.9 High 5-7 finding CBC Auto Diff 02/11/2017 [facility] White Blood 12.2 High 3.5 - [address] Count 10^3/uL 10.8 [place] [address] [phone] Red Blood Count 4.82 10^6/uL N 4.0-5.4 [...] Blood Cells % 0.1 Laboratory test 02/11/2017 [facility] D Dimer 533 ng/mL High Less [address] Quantitative Than 230 [place] [address] [phone] Comp Metabolic 02/11/2017 [facility] Sodium 132 Low 133-[address] mmol/[place] [address] [phone] Potassium 3.9 mmol/L N 3.5-5.0 Chloride 98 [...] Egfr 95.5 >60 26 Laboratory test 02/11/2017 [facility] C Reactive 24.63 High < 5.00 [address] Protein mg/[place] [address] [phone] Urine 10/04/2016 [facility] Urine 145.66 N [address] Creatinine mg/[place] [address] [phone] Ur Microalbumin (mg/L) < 15.0 mg/L N Urine Microalbumin/Creatinine TNP ug/mg N <31 29 Laboratory test 10/04/2016 [facility] Hemoglobin A1c 9.8 High 5-7 finding Laboratory test 08/22/2016 [facility] Hemoglobin A1c 11.3 High 5-7 finding Laboratory test 03/02/2016 [facility] HIV 1&2 AB Nonreactive N Nonreactive [address] [place] [address] [phone] Syphillis Igg W/Reflex RPR Nonreactive N Nonreactive 31 GC/Chlamydia 03/02/2016 [facility] Chlamydia Negative N Negative 32 Amplified Rna [address] [place] [address] [phone] Neisseria gonorrhoeae (GC) Rna Negative N Negative Ua Routine 12/31/2015 [facility] Ua Specific [place] 1.005 Ua PH 6 Ua Color yellow Ua Appera clear Ua WBC neg Ua Protein neg Ua Glucose 1000+ Ua Ketones neg Ua Bilirubin neg Ua Urobilinogen neg Ua Nitrite neg Ua Occult Blood small Laboratory test 10/26/2015 [facility] Hemoglobin A1c 9.1 High 5-7 finding Laboratory test 07/24/2015 [facility] Hemoglobin A1c 10.6 High 5-7 finding CBC Auto Diff 06/06/2015 [facility] White Blood Count 16.3 High 3.5-10.[address] 10^3/[place] [address] [phone] Red Blood Count 5.44 10^6/uL High 4.0-5.4 [...] Cells % 0 N Urinalysis Profile 06/06/2015 [facility] Urine Color Yellow N [address] [place] [address] [phone] Urine Appearance Clear N Urine Specific [place] 1.036 High 1.010-1.030 Urine pH 5.0 N 5-9 Urine Urobilinogen Negative N Negative Urine Ketones Trace Abnormal Negative Urine Protein Negative N Negative Urine Leukocytes Negative N Negative Urine Blood Negative N Negative Urine Nitrite Negative N Negative Urine Bilirubin Negative N Negative Urine Glucose 3+(>=500 mg/dL) Abnormal Negative Comp Metabolic Panel 06/06/2015 [facility] Sodium 131 mmol/L Low 133-[address] [place] [address] [phone] Potassium 4.0 mmol/L N 3.5-5.0 Chloride 101 [...] 91.6 N >60 33 Urine Culture 06/06/2015 [facility] Urine Culture SEE RESULT [address] [place] [address] [phone] Laboratory test 06/06/2015 [facility] Point of Care 320 mg/dL High 74-106 [address] [place] [address] [phone] Laboratory test 04/22/2015 [facility] Hemoglobin A1c 9.6 High 5-7 finding GC/Chlamydia 01/20/2015 [facility] Chlamydia Negative N Negative Amplified Rna [address] [place] [place] [address] Rna [phone] Neisseria gonorrhoeae (GC) Rna Negative N Negative 36 Laboratory test 01/20/2015 [facility] Hemoglobin A1c 12.0 High 5-7 finding Laboratory test 10/01/2014 [facility] Wound SEE RESULT 37, [address] Culture/[place] [address] [phone] Lipid Profile 06/11/2014 [facility] Triglycerides 318 mg/dL N 39 (Trig/Chol/HDL) [address] [place] [address] [phone] Cholesterol 211 mg/dL N 40 HDL Cholesterol 44.2 mg/dL N 41 LDL Cholesterol 103 mg/dL N 42 Comp Metabolic Panel 06/11/2014 [facility] Sodium 136 mmol/L N 133-[address] [place] [address] [phone] Potassium 4.5 mmol/L N 3.5-5.0 Chloride 103 [...] 144.4 N >60 43 Urine Microalbumin 06/11/2014 [facility] Ur Microalbumin 20.0 mg /L N Random [address] (mg/L) [place] [address] [phone] Urine Creatinine 75.70 mg/dL N Urine Microalbumin/Creatinine 26.4 N Less Than 31 Laboratory test 05/09/2014 [facility] Hemoglobin A1c 13.5 High 5-7 finding Laboratory test 08/30/2013 [facility] Hemoglobin A1c 11.1 High 5-7 finding Lipid Profile 04/26/2013 [facility] Triglycerides 241 mg/dL 44 (Trig/Chol/HDL) [address] [place] [address] [phone] Cholesterol 187 mg/dL 45 HDL Cholesterol 37.2 mg/dL 46 LDL Cholesterol 102 mg/dL 47 Laboratory test 04/26/2013 [facility] Hemoglobin 14.4 g/dL 12.0-16.[address] [place] [address] [phone] Hemoglobin A1c 10.2 % High Less than 6.0 48 Comp Metabolic Panel 04/26/2013 [facility] Sodium 138 mmol/L 133-[address] [place] [address] [phone] Potassium 4.8 mmol/L 3.7-5.6 Chloride 104 mmol/L [...] Egfr 123.9 >60 49 Urine Microalbumin 04/26/2013 [facility] Ur Microalbumin 22.0 mg /dL <[address] (mg/L) [place] [address] [phone] Urine Creatinine 113.88 mg/dL Urine Microalbumin/Creatinine 19.3 Less Than 31 Rapid Influenza 03/06/2013 [facility] Rapid Influenza A (SEE NOTE) 51 A B Antigen [address] [place] [place] [address] [phone] Laboratory test 11/14/2012 [facility] TSH (Thyroid 2.04 miu/mL 0.34- finding [address] Stimulating Horm) 5.60 [place] [address] [phone] Free T4 0.80 ng/mL 0.61-1.24 Laboratory test 11/14/2012 [facility] Hemoglobin A1c 8.6 High 5-7 finding Vitamin D, 25 11/14/2012 [facility] 25-Hydroxy Vitamin <4.0 ng/ mL Hydroxy DRIVE D2 [place] [address] [phone] 25-Hydroxy Vitamin D3 32 ng/mL 25-Hydroxy Vitamin D Total 32 ng/mL 52 Laboratory test 11/14/2012 [facility] Vitamin B12 [phone] pg/[place] [address] [phone] Laboratory test 05/21/2012 [facility] Hemoglobin A1c 8.8 High 5-7 finding Urine 03/28/2012 [facility] Ur Microalbumin 6.0 mg/L [address] (Mg/L) [place] [address] [phone] Urine Creatinine 132.6 mg/dL Urine Microalbumin/Creatinine 4.5 ug/mg Less Than 31 Comp Metabolic Panel 03/28/2012 [facility] Sodium 138 mmol/L 133-[address] [place] [address] [phone] Potassium 4.0 mmol/L 3.5-5.0 Chloride 102 mmol/L [...] Egfr 124.7 >60 54 Laboratory test 03/28/2012 [facility] Glucose 168 mg/dL High 70-100 finding [address] [place] [address] [phone] Lipid Profile 03/28/2012 [facility] Triglycerides 156 mg/dL 40-200 (Trig/Chol/HDL) [address] [place] [address] [phone] Cholesterol 199 mg/dL Less than 200 HDL Cholesterol 43 mg/dL 40-60 55 Cholesterol/HDL Ratio 4.6 Average High 1-4.44 LDL Cholesterol 124.8 mg/dL High Less Than 100 56 Laboratory test 03/14/2012 [facility] Hemoglobin A1c 8.9 High 5-7 finding Order 03/14/2012 [facility] peak flow x 3 275,300,30 0 Rapid Influenza A 02/22/2012 [facility] Rapid Influenza A (SEE NOTE) 57 B Antigen 101 [facility] [place] [address] [phone] Comp Metabolic 02/22/2012 [facility] Sodium 136 mmol/L 133- 145 Panel [address] [place] [address] [phone] Potassium 4.1 mmol/L 3.5-5.0 Chloride 103 mmol/L [...] Egfr 106.9 >60 58 CBC Auto 02/22/2012 [facility] White Blood 12.7 10^3/uL High 4.8-10.[address] [place] [address] [phone] Red Blood Count 4.84 10^6/uL 4.0-5.4 Hemoglobin [...] Cells % 0 Laboratory test finding 05/12/2011 [facility] Hemoglobin A1c 7.3 High 5 [...] in selective patients <6.0%. Please refer to [place] [employer] diabetic care guidelines for further [...] <15 (or dialysis) 13 Test Performed by: [facility] [address] [place] [address] 14 Desirable: <150 Borderline High: 150-199 High: [...] in selective patients <6.0%. Please refer to [place] [employer] diabetic care guidelines for further information. 20 [id number] 21 SEE RESULT BELOW Name: MARYA PINA : [address]: Tuyet Alvarado NP Acct: [id number] Unit: [id number] AGE: 36 Location: [facility] Re04/13/17 SEX: F Status: REG REF SPEC: [id number] LAMBERTO: 04/13/17-[address]: Tuyet Alvarado NP REQ: [id number] RECD: 04/13/17 STATUS: COMP _ SOURCE: FAROOQ SPDESC: ORDERED: Flu A B Request COMMENTS: [id number] Procedure Result Reported Site Rapid Influenza A B Request Final 04/13/17- 1950 ML Specimen received for Influenza A/B Molecular testing * ML - MAIN LAB ([facility]) . END OF REPORT * ML=Testing performed at Main Lab DEPARTMENT OF PATHOLOGY, [address] [place] [address] Reese Fu M.D. Director [facility] # [id number] 22 Field Radio Technician: [id number] 24 SEE RESULT BELOW Name: MARYA PINA I : [address]: Karla Rich MD Acct: [id number] Unit: [id number] AGE: 36 Location: [facility] Re02/21/17 SEX: F Status: REG REF SPEC: [id number] LAMBERTO: 02/21/[address]: Karla Rich MD REQ: [id number] RECD: 02/21/17 STATUS: SOUT _ ORDERED: TP IMAGE ANAL, HPV/Thin Prep, HPV 16/18 GENE COMMENTS: [id number] Negative for Intraepithelial lesion or Malignancy A. [...] System. Due to cytologic findings at the rotary surface grinder microscope, comprehensive manual rescreening by a Game Engineer may be required. The Pap Smear is [...] performed at Main Lab DEPARTMENT OF PATHOLOGY, [address] [place] [address] Reese Fu M.D. Director [facility] # [id number] 25 Please note: The following may produce [...] (or dialysis) 27 Acute inflammation: >10.00 28 [id number] 29 Unable to calculate due to low [...] for incubating or early primary disease. 32 [id number] 33 Because ethnic data is not always [...] [address]: Ana Jeffers MD Acct: [id number] Unit: [id number] AGE: 34 Location: ED Re06/06/15 SEX: F Status: DEP ER SPEC: [id number] LAMBERTO: 06/06/[address] [facility] [address]: Heidi Avery MD REQ: [id number] RECD: 06/06/15 STATUS: EDUARDO LANGFORD DR: [facility] Karla Rich MD _ SOURCE: URINE SPDESC: ORDERED: Urine Culture Procedure Result Reported Site Urine Culture Final 06/07/15- 1122 ML No growth of clinically significant organisms * ML - MAIN LAB ([facility]) . END OF REPORT * ML=Testing performed at Main Lab DEPARTMENT OF PATHOLOGY, [address] [place] [address] Reese Fu M.D. Director [facility] # [id number] 35 RYLEE JOHNSON to be notified Field Radio Technician: [id number] CHUY STEPHEN 36 Female urine specimens have been self-validated by [facility] Laboratory and have been granted conditional assay approval by [facility]. 37 Comment: right félix martinez 38 SEE RESULT BELOW Name: MARYA PINA I : [address]: Ana Jeffers MD Acct: [id number] Unit: [id number] AGE: 34 Location: ED Re10/01/14 SEX: F Status: DEP ER SPEC: [id number] LAMBERTO: 10/01/[address] [facility] [address]: Brian ELIZABETH REQ: [id number] RECD: 10/01/14 STATUS: EDUARDO CHO DR: Ana Jeffers MD _ SOURCE: [facility]: ORDERED: Culture Stain COMMENTS: Comment: [...] PATHOLOGY, [address], [place], [place] [address] Reese uF M.D. Director [facility] # [id number] Patient: MARYA PINA Funmilayo [id number] (Continued) Specimen: [id number] Collected: 10/01/14-1729 Received: 10/01/14-1810 (Continued) Procedure Result Verified Site Wound/Misc Culture Final (continued) 10/03/14- 1001 1. STAPHYLOCOCCUS AUREUS (continued) M.I.C. RX --------- ------ Imipenem-Deduced S * Ampicillin/Sulbactam-Deduced S Cefazolin-Deduced S * These antibiotics are not available in the [facility] Formulary Contact the Microbiology Department for any additional antibiotic reporting. * ML - MAIN LAB ([facility]) . END OF REPORT * ML=Testing performed at Main Lab DEPARTMENT OF PATHOLOGY, [address] [place] [address] Reese Fu M.D. Director [facility] # [id number] 39 Desirable <150 Borderline high 150-199 High [...] and in selective patients <6.0%.Please refer to [place] [employer] Diabetic care guidelines for further [...] of 30-299 ug/mg. 51 RUN DATE: 03/06/13 [facility] LAB LIVE PAGE 1 RUN TIME: 4532 [address] [place], [place] [address] Specimen Inquiry Name: MARYA PINA I : [address]: Damien Argueta DO Acct: [id number] Unit: [id number] AGE: 32 Location: ED Re03/06/13 SEX: F Status: REG ER SPEC: [id number] LAMBERTO: 03/06/13-[address] [facility] [address]: Babs ARTHUR REQ: [id number] RECD: 03/06/13 STATUS: EDUARDO LANGFORD DR: Damien Doan MD _ SOURCE: [facility]AROOQ [facility]: ORDERED: Rapid Flu A B [...] performed at Main Lab DEPARTMENT OF PATHOLOGY, [address] [place], [place] [address] Reese Fu M.D. Director [facility] Permit #[id number] 52 -- REFERENCE VALUE -- 25-HYDROXY D TOTAL (D2+D3) Optimum levels in the healthy population are 20-50, patients with bone disease may benefit from higher levels within this range. Test Performed by: [facility] - [address] [address] Boilers And Pressure Vessels Inspector: Krish Mckinnon III, M.D. 53 Microalbuminuria in [...] than 189 MG/DL 57 RUN DATE: 02/22/12 [facility] LAB LIVE PAGE 1 RUN TIME: 1630 [employer] [place], [place] [address] Specimen Inquiry Name: MARYA PINA I : [address]: Sukumar Madera DO Acct: [id number] Unit: [id number] AGE: 31 Location: ED Re02/22/12 SEX: F Status: REG ER SPEC: [id number] LAMBERTO: 02/22/12-[address] [facility] [address]: Deepthi Corona RPA REQ: [id number] RECD: 02/22/12 STATUS: EDUARDO LANGFORD DR: Sukumar Madera DO, MD,[facility] _ SOURCE: FAROOQ [facility]: ORDERED: Rapid Flu A B [...] performed at Main Lab DEPARTMENT OF PATHOLOGY, [address] [place] [address] Reese Fu M.D. Director [facility] Permit #[id number] Because ethnic data is not always [...] dialysis) Procedures Date Code Description Status 10/12/2017 46097 Diffusing Capacity Completed 10/12/2017 43713 Plethysmography Determination Lung Volumes & Per Completed Airway Resist 10/12/2017 81613 Pulmonary Function><Bronchodil Completed 08/10/2017 [id number] Diabetic Retinal Eye Exam Completed 08/02/2017 80980 ECHO Transthorasic Realtime 2D W Doppler & Color Flow Completed Hosp 04/25/2016 [id number] Diabetic Retinal Eye Exam Completed 01/21/2015 [id number] Diabetic Retinal Eye Exam Completed 09/20/2012 90729 Polysomnography Sleep Staging 4+ Parameters Completed 03/28/2012 04853 Pulmonary Function><Bronchodilator Completed Encounters Type Date Location Provider Dx Diagnosis Office Visit 08/17/2018 [facility] Tuyet Alvarado, E78.00 Pure 10:20a Medicine - [facility] N.P. 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 general adult medical exam w abnormal findings E11.40 Type 2 diabetes mellitus with diabetic neuropathy, unsp E11.65 Type 2 diabetes mellitus with hyperglycemia J45.901 Unspecified asthma with (acute) exacerbation L03.116 Cellulitis of left lower limb L02.416 Cutaneous abscess of left lower limb F17.210 Nicotine dependence, cigarettes, uncomplicated Z79.4 [facility] (current) use of insulin E66.01 Morbid (severe) obesity due to excess calories Z68.43 Body mass index (BMI) 50-59.9, adult G47.33 Obstructive sleep apnea (adult) (pediatric) I89.0 Lymphedema, not elsewhere classified Office Visit 12/19/2017 1:40p [facility] Tuyet Alvarado, I89.0 Lymphedema, not Medicine - N.P. elsewhere [facility] classified L03.818 Cellulitis of other sites Office Visit 11/02/2017 10:40a [facility] Tuyet Alvarado, Z79.84 [facility] Medicine - N.P. (current) use of [facility] oral hypoglycemic drugs Z79.4 [facility] (current) use of insulin E11.65 Type 2 diabetes mellitus with hyperglycemia J20.9 Acute bronchitis, unspecified Office Visit 09/28/2017 [facility] J45.909 Unspecified asthma , 1:00p [facility] uncomplicated [facility] F17.200 Nicotine dependence, unspecified, uncomplicated G47.33 Obstructive sleep apnea (adult) (pediatric) E66.01 Morbid (severe) obesity due to excess calories Z68.43 Body mass index (BMI) 50-59.9 , adult Office Visit 09/13/2017 2:20p [facility] Tuyet Alvarado, I89.0 Lymphedema, not Medicine - N.P. elsewhere [facility] classified E11.65 Type 2 diabetes mellitus with hyperglycemia Office Visit 08/24/2017 9:40a [facility] Tuyet Alvarado, I89.0 Lymphedema, not Medicine - N.P. elsewhere [facility] classified E11.65 Type 2 diabetes mellitus with hyperglycemia J45.22 Mild intermittent asthma with status asthmaticus K21.9 Gastro-esophageal reflux disease without esophagitis Office Visit 08/07/2017 11:20a [facility] Tuyet Alvarado, E11.65 Type 2 diabetes Medicine - N.P. mellitus with [facility] hyperglycemia H92.09 Otalgia, unspecified ear Z68.44 Body mass index (BMI) 60.0-69.9, adult Office Visit 07/14/2017 1:40p [facility] Tuyet Alvarado, E11.65 Type 2 diabetes Medicine - N.P. mellitus with [facility] hyperglycemia E11.40 Type 2 diabetes mellitus with diabetic neuropathy, unsp I89.0 Lymphedema, not elsewhere classified J45.40 Moderate persistent asthma, uncomplicated J20.9 Acute bronchitis, unspecified Office Visit 05/22/2017 2:20p [facility] Shane Anderson, J01.90 Acute sinusitis, Medicine - [facility] FRONT FACER unspecified J20.9 Acute bronchitis, unspecified Office Visit 04/13/2017 11:40a [facility] Tuyet Alvarado, F17.200 Nicotine Medicine - N.P. dependence, [facility] unspecified, uncomplicated J20.9 Acute bronchitis, unspecified E11.65 Type 2 diabetes mellitus with hyperglycemia Office Visit 03/30/2017 9:00a [facility] Shane Monica, I82.819 Embolism and Medicine - [facility] FRONT FACER thrombosis of superficial vn unsp low extrm J01.90 Acute sinusitis, unspecified Office Visit 02/21/2017 8:00a [facility] Karla Z00.00 Encntr for Medicine - Ccm[facility]anchesca Rich M.D. general adult medical exam w/o abnormal findings Z12.4 Encounter for screening for malignant neoplasm of cervix E11.65 Type 2 diabetes mellitus with hyperglycemia Z72.0 Tobacco use I82.819 Embolism and thrombosis of superficial vn unsp low extrm R05 Cough F32.89 Other specified depressive episodes Office Visit 02/14/2017 8:40a [facility] Karla I82.819 Embolism and Medicine - [place] Rich thrombosis of [facility] superficial vn unsp low extrm E11.65 Type 2 diabetes mellitus with hyperglycemia Office Visit 12/09/2016 11:40a [facility] Medicine - Tuyet Alvarado, N.P. R05 Cough [facility] R07.89 Other chest pain Office Visit 11/29/2016 10:20a [facility] Tuyet Alvarado, J45.41 Moderate Medicine - N.P. persistent asthma [facility] with (acute) exacerbation E11.65 Type 2 diabetes mellitus with hyperglycemia F17.218 Nicotine dependence, cigarettes, w oth disorders Office Visit 11/11/2016 10:20a [facility] Tuyet Alvarado, J20.9 Acute bronchitis, Medicine - [facility] N.P. 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 bilateral upper limbs G56.23 Lesion of ulnar nerve, bilateral upper limbs Office Visit 10/04/2016 1:00p [facility] Tuyet Alvarado, E11.65 Type 2 diabetes Medicine - N.P. mellitus with [facility] hyperglycemia J45.30 Mild persistent asthma, uncomplicated J30.9 Allergic rhinitis, unspecified M79.641 Pain in right hand Z23 Encounter for immunization Office Visit 08/22/2016 2:00p [facility] Tuyet Alvarado, E11.65 Type 2 diabetes Medicine - N.P. mellitus with [facility] hyperglycemia J20.9 Acute bronchitis, unspecified Office Visit 04/29/2016 1:00p [facility] Tuyet Alvarado, R19.7 Diarrhea, Medicine - N.P. unspecified [facility] J20.9 Acute bronchitis, unspecified Office Visit 03/02/2016 11:20a [facility] Tuyet Alvarado, F43.23 Adjustment Medicine - N.P. disorder with [facility] mixed anxiety and depressed mood B37.3 Candidiasis of vulva and vagina Z11.3 Encntr screen for infections w sexl mode of transmiss R19.7 Diarrhea, unspecified Office Visit 12/31/2015 10:40a [facility] Tuyet Castrejoncarlin, J20.9 Acute bronchitis, Medicine - N.P. unspecified [facility] M54.89 Other dorsalgia Office Visit 10/26/2015 10:00a [facility] Tuyet Castrejoncarlin, Z79.4 [facility] Medicine - [facility] N.P. (current) use of insulin E11.65 Type 2 diabetes mellitus with hyperglycemia F17.210 Nicotine dependence, cigarettes, uncomplicated H66.93 Otitis media, unspecified, bilateral Office Visit 08/17/2015 11:40a [facility] Tuyet Castrejoncarlin, B37.0 Candidal Medicine - [facility] N.P. stomatitis J20.9 Acute bronchitis, unspecified J45.901 Unspecified asthma with (acute) exacerbation Office Visit 07/24/2015 10:00a [facility] Tuyet Castrejoncarlin, J20.9 Acute bronchitis, Medicine - N.P. unspecified [facility] E11.65 Type 2 diabetes mellitus with hyperglycemia Office Visit 06/11/2015 2:40p [facility] Wilfredo Haile R10.13 Epigastric pain Roberto Patel M.D. [facility] Office Visit 04/22/2015 10:00a [facility] Tuyet Christiano, E11.65 Type 2 diabetes Medicine - N.P. mellitus with [facility] hyperglycemia I80.02 Phlebitis and thombophlb of superfic vessels of l low extrem J30.9 Allergic rhinitis, unspecified F17.210 Nicotine dependence, cigarettes, uncomplicated Office Visit 01/20/2015 11:20a [facility] Tuyet Christiano, Z11.3 Encntr screen for Medicine - [facility] N.P. infections w sexl mode of transmiss E11.65 Type 2 diabetes mellitus with hyperglycemia I10 Essential (primary) hypertension F17.210 Nicotine dependence, cigarettes, uncomplicated Z23 Encounter for immunization Office Visit 12/17/2014 11:20a [facility] Tuyet Christiano, Z79.4 [facility] Medicine - [facility] N.P. (current) use of insulin E11.65 Type 2 diabetes mellitus with hyperglycemia J20.9 Acute bronchitis, unspecified I10 Essential (primary) hypertension L02.421 Furuncle of right axilla L02.422 Furuncle of left axilla F17.210 Nicotine dependence, cigarettes, uncomplicated Office Visit 05/09/2014 1:00p [facility] Tuyet Alvarado, 250.02 Diabetes Medicine [...] Use Of Insulin Office Visit 09/12/2013 10:30a [facility] Cassidy Lua, 250.02 Diabetes Medicine - N.P. Mellitus W/O [facility] Compl Type II Or Unspec Type Uncontrol 278.01 Obesity Morbid Office Visit 08/30/2013 11:20a [facility] Cristina Garcia, 250.02 [facility] Mellitus W/O Compl Type II Or Unspec Type Uncontrol 382.9 Otitis Media Unspec 477.9 Rhinitis Allergic Cause Unspec Office Visit 05/03/2013 11:00a [facility] Cristina Garcia, 250.02 Diabetes Medicine - [facility] M.D. Mellitus W/O Compl Type II Or Unspec Type Uncontrol 381.4 Otitis Media Acute Or Chronic Nonsuppurative 278.01 Obesity Morbid 305.1 Tobacco Use Disorder 327.23 Obstructive Sleep Apnea Adult & Pediatric Office Visit 04/15/2013 10:20a [facility] Cristina Garcia, 493.90 Asthma Unspec W/O Medicine - M.D. Status Asthmaticus [facility] 466.0 Bronchitis Acute 381.4 Otitis Media Acute Or Chronic Nonsuppurative 250.02 Diabetes Mellitus W/O Compl Type II Or Unspec Type Uncontrol Office Visit 01/22/2013 11:20a [facility] Tuyet Alvarado, 466.0 Bronchitis Acute Medicine - [facility] N.P. 381.81 Eustachian Tube Dysfunction Office Visit 01/07/2013 9:40a [facility] Tuyet Alvarado, 466.0 Bronchitis Acute Medicine - [facility] N.P. 686.8 Local Infection Skin & Subcutaneous Tissue Other Spec 727.03 Trigger Finger Acquired Office Visit 11/28/2012 11:00a [facility] Cristina Garcia, 493.90 Asthma Unspec W/O Medicine - M.D. Status Asthmaticus [facility] Office Visit 11/14/2012 2:40p [facility] Cristina Garcia, 250.02 Diabetes Mellitus Medicine - M.D. W/O Compl Type II [facility] Or Unspec Type Uncontrol 278.01 Obesity Morbid 311 Depressive Disorder Not Elsewhere Spec 782.0 Skin Sensation Disturbance Office Visit 10/29/2012 8:40a [facility] Cristina Garcia, 278.01 Obesity Morbid Medicine - [facility] M.D. 729.5 Pain In Limb 250.02 Diabetes Mellitus W/O Compl Type II Or Unspec Type Uncontrol 311 Depressive Disorder Not Elsewhere Spec Office Visit 08/17/2012 11:00a [facility] Cristina Garcia, 305.1 Tobacco Use Medicine - [facility] M.D. Disorder 278.01 Obesity Morbid 729.5 Pain In Limb Office Visit 07/18/2012 4:17p Alethea Castellanos 786.09 Dyspnea & Disorder [facility] Abnormalities Other Office Visit 06/25/2012 11:40a [facility] Cristina Garcia, 278.01 Obesity Morbid Medicine - M.D. [facility] 305.1 Tobacco Use Disorder 250.02 Diabetes Mellitus W/O Compl Type II Or Unspec Type Uncontrol Office Visit 05/21/2012 9:20a [facility] Cristina Garcia, 250.02 Diabetes Medicine - [facility] M.DJessica Mellitus W/O Compl Type II Or Unspec Type Uncontrol 493.90 Asthma Unspec W/O Status Asthmaticus 305.1 Tobacco Use Disorder 278.01 Obesity Morbid 401.1 Hypertension Benign 307.49 Sleep Disorder Other 382.9 Otitis Media Unspec V03.82 Streptococcus Pneumoniae Vaccination Spec Other Office Visit 03/28/2012 1:40p [facility] Emiliano Garcia, 250.02 Diabetes Medicine - [facility] M.D. Mellitus W/O Compl Type II Or Unspec Type Uncontrol 493.90 Asthma Unspec W/O Status Asthmaticus 305.1 Tobacco Use Disorder Office Visit 03/14/2012 2:20p [facility] Cristina Garcia, 250.02 Diabetes Medicine - [facility] M.D. Mellitus W/O Compl Type II Or Unspec Type Uncontrol 278.01 Obesity Morbid 305.1 Tobacco Use Disorder 493.90 Asthma Unspec W/O Status Asthmaticus 401.1 Hypertension Benign 307.49 Sleep Disorder Other 521.08 Dental Caries-Root Surface Office Visit 01/18/2012 9:40a [facility] Tuyet Alvarado, 682.8 Cellulitis & Medicine - N.P. Abscess Other [facility] Spec Sites Office Visit 05/12/2011 9:30a [facility] Constance Larkin, 278.01 Obesity Morbid Medicine - M.D. [facility] 477.9 Rhinitis Allergic Cause Unspec 250.02 Diabetes Mellitus W/O Compl Type II Or Unspec Type Uncontrol 305.1 Tobacco Use Disorder Plan of Treatment Future Appointment(s):10/09/2018 8:15 am - Joshua Arita MD at [facility]01/19/2019 11:00 am - Tuyet Alvarado, N.P. at [facility]2018 9:40 am - Luis Murdock MD at [place] [facility]09/17/2018 - Felice Billingsley M.D.G62.9 Polyneuropathy, unspecifiedNew [...] twice a day for one week, then othhideuextR66.009 Migraine without aura, not intractable , without status migraNew Medication:Topiramate 25 mg - 1 qhs for 1 week then 2 qhs for 1 week then 3 qhs for 1 week then 4 qhs
[2018-09-30] MEDS ORDERED: Ibuprofen TAB* 600 MG PO ONE (19:06)
[2018-09-30 19:19] LABS: ABS Basophils 0.1 10^3/ul (0-0.2); ABS Eosinophils 0.2 10^3/ul (0-0.6); ABS Lymphocytes 2.9 10^3/ul (1.0-4.8); ABS Monocytes 0.9 10^3/ul (0-0.8); Eosinophil % 1.3 %; Hematocrit 42 % (35-47); Hemoglobin 14.1 g/dL (12.0-16.0); Lymphocyte % 18.9 %; Mean Corpuscular HGB Conc 33 g/dL (31-36); Mean Corpuscular Hemoglobin 28 pg (27-31); Mean Corpuscular Volume 83 fL (80-97); Mean Platelet Volume 7.7 fL (7.4-10.4); Platelet Count 377 10^3/uL (150-450); Red Blood Count 5.13 10^6 /uL (3.70-4.87); Red Cell Distribution Width 15 % (10-15); White Blood Count 15.1 10^3/uL (3.5-10.8)
[2018-09-30 19:26] LABS: INR 0.97 (0.82-1.09)
[2018-09-30 19:39] LABS: ALT 13 U/L (7-52); AST 14 U/L (13-39); Albumin 4.1 g/dL (3.2-5.2); Albumin/Globulin Ratio 1.2 (1-3); Alkaline Phosphatase 84 U/L (34-104); Anion Gap 7 mmol/L (2-11); BUN/Creatinine Ratio 28.3 (8-20); Blood Urea Nitrogen 26 mg/dL (6-24); C Reactive Protein 13.99 mg/L (<8.01); CO2 Carbon Dioxide 28 mmol/L (22-32); Calcium 9.5 mg/dL (8.6-10.3); Chloride 104 mmol/L (101-111); EGFR African American 82.2 (>60); Globulin 3.4 g/dL (2-4); Glucose 52 mg/dL (70-100); Potassium 3.9 mmol/L (3.5-5.0); Sodium 139 mmol/L (135-145); Total Protein 7.5 g/dL (6.4-8.9)
[2018-09-30 19:45] LABS: HCG Pregnancy < 0.60 mIU/mL
--- NOTE | 2018-09-30 20:08 | ED ---
Lower Extremity - HPI Summary HPI Summary: Patient complains of sudden onset anterior left martinez pain 2 days. Denies trauma, fever, cough, sore throat, CP, SOB, N/V/D, abdominal pain, change in urine, change in BM. Admits to history of blood clots. Not currently on anticoagulation. Patient advised to come to ED by her "vein Doctor" Dr. Richmond. Medical history is DM, HTN. - History of Current Complaint Chief Complaint: EDExtremityLower Stated Complaint: BLOOD CLOT IN MY LEG PER PT Time Seen by Provider: 09/30/18 18:15 Hx Obtained From: Patient Hx Last Menstrual Period: one week ago Mechanism Of Injury: Unknown Onset of Pain: Days Onset/Duration: Days Severity Initially: Severe Severity Currently: Severe Pain Intensity: 9 Pain Scale Used: 0-10 Numeric Timing: Constant Location: Is Discrete @ Character Of Pain: Sharp Associated Signs And Symptoms: Positive: Negative Aggravating Factor(s): Standing, Ambulation, Movement, Weight Bearing Alleviating Factor(s): Rest Able to Bear Weight: Yes - Allergies/Home Medications Allergies/Adverse Reactions: Allergies Allergy/AdvReac Type Severity Reaction Status Date / Time hydrocodone Allergy Rash Verified 09/30/18 18:19 latex Allergy Rash And Verified 09/30/18 18:19 Itching Home Medications: Home Medications Aspirin [Aspirin EC] 81 mg PO DAILY 09/30/18 [History Confirmed 09/30/18] Cetirizine* [ZyrTEC 10 MG TAB*] 10 mg PO DAILY 09/30/18 [History Confirmed 09/30] Insulin REGULAR(TPN)* 10 - 15 units SUBCUT SEE INSTRUCTIONS 09/30/18 [History Confirmed 09/30/18] Pantoprazole Sodium 20 mg PO DAILY 09/30/18 [History Confirmed 09/30/18] Pregabalin [Lyrica] 1 cap PO BID 09/30/18 [History Confirmed 09/30/18] Topiramate TAB(*) [Topamax 25 MG tab] 25 mg PO SEE INSTRUCTIONS 09/30/18 [ History Confirmed 09/30/18] PMH/Surg Hx/FS Hx/Imm Hx Endocrine/Hematology History: Reports: Hx Diabetes - type 2 Denies: Hx Anticoagulant Therapy - DVT and VIII (von willebrand), Hx Thyroid Disease Cardiovascular History: Reports: Hx Hypertension Denies: Hx Pacemaker/ICD Respiratory History: Reports: Hx Asthma - uses nebulizer treatments PRN, Other Respiratory Problems/Disorders - allergic rhinits, smoker Denies: Hx Chronic Obstructive Pulmonary Disease (COPD) GI History: Reports: Hx Gall Bladder Disease - s/p cholecystectomy 2004 History: Denies: Hx Renal Disease Musculoskeletal History: Reports: Other Musculoskeletal History - H/o rib fx - no residual Sensory History: Denies: Hx Contacts or Glasses Opthamlomology History: Denies: Hx Contacts or Glasses Neurological History: Denies: Hx Dementia, Hx Seizures Psychiatric History: Reports: Hx Depression Denies: Hx Substance Abuse - Surgical History Surgery Procedure, Year, and Place: 1993 tonsils, 2003 , 2004 cholecystectomy, 2012 complete tooth extraction (uppers & lowers). 05/31/17 vein Infectious Disease History: No Infectious Disease History: Denies: Hx Clostridium Difficile, Hx Hepatitis, Hx Human Immunodeficiency Virus (HIV), Hx of Known/Suspected MRSA, Hx Shingles, Hx Tuberculosis, Hx Known/ Suspected VRE, Hx Known/Suspected VRSA, History Other Infectious Disease, Traveled Outside the [place] in Last 30 Days - Family History Known Family History: Positive: Cardiac Disease, Other - Positive FMHx for URI Negative: Hypertension, Diabetes - Social History Alcohol Use: None Hx Substance Use: No Substance Use Type: Reports: None Hx Tobacco Use: Yes Smoking Status (MU): Heavy Every Day Tobacco Smoker Amount Used/How Often: 1 pack /day Have You Smoked in the Last Year: Yes Review of Systems Constitutional: Negative Eyes: Negative ENT: Negative Cardiovascular: Negative Respiratory: Negative Gastrointestinal: Negative Genitourinary: Negative Musculoskeletal: Other Skin: Negative Neurological: Negative Psychological: Normal All Other Systems Reviewed And Are Negative: Yes Physical Exam - Summary Physical Exam Summary: No erythema, ecchymosis, deformity, swelling or wound noted to right lower extremity. Tenderness to palpation over anterior proximal martinez. Full range of motion of knee without erythema, ecchymosis, deformity, swelling noted to knee joint. Right calf soft nontender. Full range of motion of right ankle. Triage Information Reviewed: Yes Vital Signs On Initial Exam: Initial Vitals Temp Pulse Resp BP Pulse Ox 97.5 F 89 20 130/83 99 09/30/18 17:55 09/30/18 17:55 09/30/18 17:55 09/30/18 17:55 09/30/18 17:55 Vital Signs Reviewed: Yes Skin: Positive: Warm Head/Face: Positive: Normal Head/Face Inspection Eyes: Positive: Normal Neck: Positive: Supple Respiratory/Lung Sounds: Positive: Clear to Auscultation Cardiovascular: Positive: Normal Abdomen Description: Positive: Nontender Musculoskeletal: Positive: Normal Neurological: Positive: Normal Psychiatric: Positive: Normal AVPU Assessment: Alert - Nedra Coma Scale Best Eye Response: 4 - Spontaneous Best Motor Response: 6 - Obeys Commands Best Verbal Response: 5 - Oriented Coma Scale Total: 15 Diagnostics - Vital Signs Vital Signs Temp Pulse Resp BP Pulse Ox 09/30/18 17:55 97.5 F 89 20 130/83 99 - Laboratory Lab Results: Lab Results 09/30/18 09/30/18 09/30/18 Range/Units 18:59 18:59 18:59 WBC 15.1 H (3.5-10.8) 10^3/uL RBC 5.13 H (3.70-4.87) 10^6 /uL Hgb 14.1 (12.0-16.0) g/dL Hct 42 (35-47) % MCV 83 (80-97) fL MCH 28 (27-31) pg MCHC 33 (31-36) g/dL RDW 15 (10-15) % Plt Count 377 (150-450) 10^3/uL MPV 7.7 (7.4-10.4) fL Neut % (Auto) 72.8 % Lymph % (Auto) 18.9 % [place] % (Auto) 6.1 % Eos % (Auto) 1.3 % Baso % (Auto) 0.9 % Absolute Neuts (auto) 11.0 H (1.5-7.7) 10^3/ul Absolute Lymphs (auto) 2.9 (1.0-4.8) 10^3/ul Absolute Monos (auto) 0.9 H (0-0.8) 10^3/ul Absolute Eos (auto) 0.2 (0-0.6) 10^3/ul Absolute Basos (auto) 0.1 (0-0.2) 10^3/ul Absolute Nucleated RBC 0.0 10^3/ul Nucleated RBC % 0.0 INR (Anticoag Therapy) 0.97 (0.82-1.09) Sodium 139 (135-145) mmol/L Potassium 3.9 (3.5-5.0) mmol/L Chloride 104 (101-111) mmol/L Carbon Dioxide 28 (22-32) mmol/L Anion Gap 7 (2-11) mmol/L BUN 26 H (6-24) mg/dL Creatinine 0.92 (0.51-0.95) mg/dL Est GFR ( Amer) 82.2 (>60) Est GFR (Non-Af Amer) 68.0 (>60) BUN/Creatinine Ratio 28.3 H (8-20) Glucose 52 L (70-100) mg/dL Calcium 9.5 (8.6-10.3) mg/dL Total Bilirubin 0.30 (0.2-1.0) mg/dL AST 14 (13-39) U/L ALT 13 (7-52) U/L Alkaline Phosphatase 84 (34-104) U/L C-Reactive Protein 13.99 H (<8.01) mg/L Total Protein 7.5 (6.4-8.9) g/dL Albumin 4.1 (3.2-5.2) g/dL Globulin 3.4 (2-4) g/dL Albumin/Globulin Ratio 1.2 (1-3) Beta HCG, Quant < 0.60 mIU/mL Result Diagrams: 09/30/18 18:59 09/30/18 18:59 Lab Statement: Any lab studies that have been ordered have been reviewed, and results considered in the medical decision making process. Lower Extremity Course/Dx - Course Course Of Treatment: Patient complains of sudden onset anterior left martinez pain 2 days. Denies trauma, fever, cough, sore throat, CP, SOB, N/V/D, abdominal pain, change in urine, change in BM. Admits to history of blood clots. Not currently on anticoagulation. Patient advised to come to ED by her "vein Doctor " Dr. Richmond. Medical history is DM, HTN. Vital signs within normal limits. WBC 15.1. Per prior records, history of elevated WBC. BUN 26. Labs otherwise unremarkable. Ultrasound negative for DVT. No known trauma. Incidental finding of BGL 52. Patient was provided food and oral glucose. BGL 93 prior to discharge. - Diagnoses Provider Diagnoses: Musculoskeletal pain of right lower extremity, Hypoglycemia Discharge - Sign-Out/Discharge Documenting (check all that apply): Patient Departure Patient Received Moderate/Deep Sedation with Procedure: No - Discharge Plan Condition: Stable Disposition: HOME Patient Education Materials: Hypoglycemia in a Person with Diabetes (ED), Musculoskeletal Pain (ED) Referrals: Tuyet Alvarado NP [Primary Care Provider] - Additional Instructions: Alternate ibuprofen and Tylenol every 3 hours. Ice right leg for 15 minutes at a time. Rest right leg. If symptoms persist more than a couple days follow-up with orthopedics Dr. Macedo for further evaluation. Return to the ED for any new or worsening symptoms. - Billing Disposition and Condition Condition: STABLE Disposition: Home
[2018-09-30] MEDS ORDERED: Glucose ORAL* 15 GM TUBE PO ONE (21:34)
[2018-09-30 22:48] VITALS: BP 156/64
== END 2018-09-30 22:47 | disposition home or self-care (01) ==
LOC: ED 17:51
DX: M79.18 Myalgia, other site (principal); E11.649 Type 2 diabetes mellitus with hypoglycemia without coma; Z79.4 Long term (current) use of insulin; I10 Essential (primary) hypertension; Z86.718 Personal history of other venous thrombosis and embolism; J45.909 Unspecified asthma, uncomplicated; F32.9 Major depressive disorder, single episode, unspecified; Z79.82 Long term (current) use of aspirin; Z88.5 Allergy status to narcotic agent; Z91.040 Latex allergy status; F17.200 Nicotine dependence, unspecified, uncomplicated
CPT/HCPCS: 36415; 80053; 84702; 85025; 85610; 86140; 99282; A9270-GY

== ENCOUNTER 2018-12-17 13:06 | Emergency (ER) | payer OTHER ==
--- OUTSIDE RECORDS SUMMARY | 2018-12-17 14:11 | XMS REPORT | Continuity of Care Document ---
:1980 External Reference #:[id number] Author Name Tuyet Alvarado N.P. (transmitted by agent of provider Cornelia Loredo) Address [address], [place] [address] Care Team Providers Name Role Phone Galo Fritz MD - Ophthalmology Care Team Information Intensive Care Nurse Ronald Nunez MD - Surgery Care Team Information Intensive Care Nurse [phone] Karla Rich MD - Internal Care Team Information Intensive Care Nurse [phone] [facility] Lili Herrera FNP-e - Family Care Team Information Intensive Care Nurse [facility] - Care Team Information Intensive Care Nurse [employer] Yennifer Naylor M.D. - Surgery of Care Team Information Intensive Care Nurse the Hand Problems Active Problems Provider Date Type II diabetes mellitus uncontrolled Constance Larkin M.D. Onset: 05/12/2011 Note: on insulin since 2018 Blood coagulation disorder Tuyet Alvarado N.P. Onset: 07/18/2017 Morbid obesity Constance Larkin M.D. [...] reflux disease Joshua Arita MD Onset: 09/13/2010 Localized, primary osteoarthritis Nhi Hamilton M.D. Onset: 10/24/2018 Strain of rotator cuff capsule Alfonso Torres MD Onset: 11/22/2018 Social History Type Date Description Comments Sex Unknown Tobacco Use Start: Unknown Heavy tobacco smoker (more than 10 cigarettes/day) ETOH Use Denies alcohol use Recreational Drug Use Denies Drug Use Tobacco Use Start: Unknown Heavy tobacco smoker (more than 10 cigarettes/day) Recreational Drug Use Regularly uses Marijuana Smoking Status Reviewed: 12/13/18 Heavy tobacco smoker (more than 10 cigarettes/day) Exercise Type/Frequency Exercises sporadically Allergies, Adverse Reactions, Alerts Active Allergies Reaction Severity Comments Date Hydrocodone Pt states she itch all over. 05/21/2012 Latex itchy and rash 08/17/2015 Inactive Allergies NKDA 05/12/2011 Medications Active Medications SIG Qnty Indications Ordering Date Provider Benzonatate one by mouth 30caps J06.9 [place] 200mg Capsules three times daily Varn, N.P. 9 as needed for cough Adjust Bath/Shower Seat 62" 307lbs dx: 1units Nhi Hamilton, Misc left knee M.D. 9 meniscus tear, left knee pain Vitamin D Take 1 Tablet By 4caps [place] (Ergocalciferol) Mouth Once A Week Varn, N.P. 9 [id number] For 8 Weeks Capsules Tylenol With Codeine #3 1 tablet by mouth 21tabs M25.562 [place] every 8 hours as Varn, N.P. 9 300-30mg Tablets needed cough Topiramate 1 po qhs 30tabs G43.009 Felice Jessica 100mg Tablets Bereket Billingsley 9 Lyrica take two caps by 120caps G62.9 Felice Jessica 50mg Capsules mouth twice a Bereket Billingsley 9 day. brand name necessary. code c Atorvastatin Calcium take 1 tablet by 90tabs E78.00 [place] 20mg mouth at bedtime Varn, N.P. 9 Tablets Ibuprofen 1 by mouth every 90tabs M54.5 [place] 600mg Tablets 6 hours as needed Varn, N.P. 9 for pain Advair Diskus inhale 1 dose by 60units J45.41 [place] 500-50mcg/Dose mouth twice daily Varn, N.P. 9 Aerosol (not taking) Humulin N 35 units QHS or 20ml E11.65 [facility], 100Unit/ML Suspension as directed, ANASTASIA Blake 60 Humulin R 30 units tid-ac 50ml [facility], 100Unit/ML Solution or as directed, MD Blake MDD 180 Ozempic Hold On File, 1mg 3ml E11.65 [facility], 1mg/Dose Solution injection once MD Blake Pen-Inject weekly, hold on file for second month Onetouch Ultrasoft use to test blood 300units [facility], Lancets glucose three MD Blake Misc times a day and as needed Onetouch Verio test four times 150units [facility], Strips daily and as MD Blake needed Insulin Syringe/0.5ML/30G 4 times daily for 150units E11.40 [facility], X 1/2" insulin MD Blake 30G X 1/2" 0.5 ML [facility] Blood Glucose Monitoring test blood sugars 1units E11.65 [facility] System once fasting and Varn, N.P. 9 W/Device Kit 2 hours after dinner meal Blood Glucose Test test blood sugar 100units E11.65 [facility] Strips fasting in in the Varn, N.P. 9 morning and 2 hours after dinner meal Lancet Device use when testing 100units E11.65 Home[facility] blood gluose Varn, N.P. 9 Pantoprazole Sodium Take One Tablet 30tabs Tuyet 20mg By Mouth Every Varn, N.P. [address] Day SM Aspirin Adult Low Take One Tablet 30tabs Tuyet Strength By Mouth Every Varn, N.P. [address] Day Mucinex twice a day as 20tabs J20.9 [facility] 600mg Tablets ER 12HR needed Varn, N.P. 8 Ranitidine HCL Take One Tablet 60tabs Shane Monica, 150mg Tablets By Mouth Twice [employer] 8 Day Hydrochlorothiazide Take One Tablet 30tabs [place] 25mg By Mouth Every Varn, N.P. 8 Tablets Day Glucose Meter Test Strips for use 3-4 times 100units [facility] Advanced daily Varn, N.P. 8 Strips Nebulizer use three times a 1units [facility] Kit/Tubing/Mouthpiece day as needed Varn, N.P. 8 Kit Fluoxetine HCL Take One Capsule 30caps F43.23 [facility] 20mg Capsules By Mouth Every Varn, N.P. 8 Day Montelukast Sodium Take One Tablet 30tabs J45.41 [facility] 10mg Tablets By Mouth Every Varn, N.P. 7 Day Freestyle Lancets test up to 2 300units [facility] Misc times a day or as Varn, N.P. 7 needed Metformin HCL ER Take 4 Tablets By 120tabs E11.65 [facility] 500mg Tablets Mouth With Dinner Varn, N.P. 7 ER 24HR Fluconazole Take 1 Tablet By 2tabs [facility] 150mg Tablets Mouth Then May Varn, N.P. 7 Repeat In 3 Days as Needed Simethicone 1 by mouth after 30caps R19.7 [facility] 180mg Capsules each meal as Varn, N.P. 7 needed Ventolin HFA Inhale Two Puffs 18units Homeworth 108(90Base) By Mouth Four Varn, N.P. 6 mcg/Act Aerosol Times A Day as Needed Freestyle Lite Blood check fingerstick 1units E11.65 [facility] Glucose Monitoring System three times daily Varn, N.P. 6 or as needed, DX Device - E11.65 Nebulizer use three times a 1units J20.9 [facility] Device day as needed Varn, N.P. 6 Ipratropium inhale the 180units J20.9 [facility] [place]/Albuterol Sulfate contents of one Varn, N.P. 6 vial via 0.5-2.5(3)mg/3ML Solution nebulizer three times a day as needed for asthma Senna Laxative 1 tab by mouth 15tabs K59.00 Noemy 25mg Tablets 1-2 times as MD Graeme 6 needed Compression Stockings knee high 2units I80.02 [facility] Misc stockings 20 - 30 Varn, N.P. 6 mm Cetirizine HCL 1 by mouth every 30tabs J30.9 [facility] 10mg Tablets day Varn, N.P. 6 Ramipril Take One Capsule 30caps I10 [facility] 5mg Capsules By Mouth Every Varn, N.P. 5 Day Fluticasone Propionate [place] One [place] 16units [facility] In Each Nostril Varn, N.P. 4 50mcg/Act Suspension Every Day as Needed Nebulizer J45.909 Cristina Garcia, Compressor/Dualfilter/7' M.D. 3 Tubing/Aerosol T/Mthpiece Kit Methocarbamol 1 by mouth twice Unknown 00/00/000 Tablets a day as needed 0 for spasm History Medications Diclofenac Sodium apply 4 gms to 100gm M25.562 Tuyet Varn, 10/10/2018 - 1% both knees every N.P. 10/11/2018 Gel 6 hours as needed pain Tramadol HCL 1 tablet three 21tabs M25.562 Tuyet Varn, 10/10/2018 - 50mg times daily as N.P. 10/26/2018 Tablets needed Topiramate 1 qhs for 1 week 120tabs G43.009 Felice Oconnell 09/17/2018 - 25mg then 2 qhs for 1 Bereket Billingsley 10/23/2018 Tablets week then 3 qhs for 1 week then 4 qhs Lyrica 1 by mouth every 120caps G62.9 Felice Oconnell 09/17/2018 - 25mg Capsules night at bedtime Bereket Billingsley 09/17/2018 for 1 week then 1 twice a day for 1 week then 2 twice a day mdd 4 Humulin 70/30 50 units Am, 30 30ml E11.65 Luis Murdock MD 08/02/2018 - Kwikpen units PM, MDD 08/07/2018 100 (70-30)100Unit/ML Supn Pen [place] 1/2" use 1 pen needle 100units E11.65 Luis Murdock MD 2018 - 29G 3 times daily 08/07/2018 X 12mm Misc with insulin and Ozempic Ozempic inject 0.25mg 1.500ml E11.40 Luis Murdock MD 07/09/2018 - 0.25or 0.5 weekly for 2 08/02/2018 mg/Dose Solution weeks, then Pen-Inject increase to 0.5mg weekly Novolin N 30 units at 10ml E11.40 Luis Murdock MD 06/21/2018 - 100Unit/ML bedtime 08/02/2018 Suspension Novolin R 30 units with 30ml E11.40 Luis Murdock MD 06/21/2018 - 100Unit/ML meals, MDD 100 08/02/2018 Solution Byetta 5 mcg Pen 5mcg injection 1.200ml E11.40 Luis Murdock MD 06/21/2018 - twice daily 07/09/2018 5mcg/0.02ML Solution Pen-Inject Amitriptyline HCL 2 tablets, (20 60tabs E11.Mari Murdock MD 06/21/2018 - mg) at bedtime 10/18/2018 10mg Tablets Medications Administered in Office Medication SIG Qnty Indications Ordering Provider Date Depomedrol 40MG Alfonso Torres MD 11/22/2018 Injection Depomedrol 40MG SHAMIKA Villarreal 11/21/2018 Injection Depomedrol 40MG Nhi Hamilton M.D. 10/17/2018 Injection Records Fee Tuyet Alvarado NElliott. 08/29/2018 Injection Immunizations CPT Code Status Date Vaccine Lot # [id number] Given 10/04/2016 Tdap - Tetanus/Diptheria/Acellular Pertussis [id number] Given 01/20/2015 Flu Vaccine Split Virus Preservative Free For [id number] Indiv [id number] Older [id number] Given 05/21/2012 Pneumonia Vaccine [id number] Vital Signs Date Vital Result Comment 12/13/2018 9:43am Weight 292.50 lb Heart Rate 74 /min BP Systolic 119 mmHg BP Diastolic 78 mmHg Body Temperature 98.5 F O2 % BldC Oximetry 97 % 12/12/2018 8:55am Height 63.25 inches 5'3.25" Weight 290.00 lb Heart Rate 83 /min BP Systolic 128 mmHg BP Diastolic 82 mmHg Body Temperature 95.4 F Pain Level 7 BMI (Body Mass Index) 51.0 kg/m2 Results Test Date Facility Test Result H/L Range Note Urine Culture And 11/28/2018 [facility] Urine Culture SEE RESULT 1, [address] [place] [address] [phone] Ua Routine 11/28/2018 [facility] Ua Specific 1.020 [place] Ua PH 5 Ua Color dark yellow Ua Appera cloudy Ua WBC trace Ua Protein trace Ua Glucose normal Ua Ketones negative Ua Bilirubin + Ua Urobilinogen normal Ua Nitrite + Ua Occult Blood negative HIV 1&2 p24 11/22/2018 [facility] HIV 4th Nonreactive Nonreactive Screen [address] [place] [address] [phone] Laboratory 11/22/2018 [facility] Syphillis Igg Negative Negative test finding [address] W/Reflex RPR [place], [place] [id number] [phone] GC/Chlamydia 11/22/2018 [facility] Chlamydia Negative Negative Amplified Rna [address] [place] [address] Abby [phone] Neisseria gonorrhoeae (GC) Abby Negative Negative CBC Auto 11/22/2018 [facility] White Blood 15.3 10^3/uL High 3.5-10.[address] [place] [address] [phone] Red Blood Count 5.06 10^6/uL High 3.70-4.87 Hemoglobin 14.0 g/dL Normal 12.0-16.0 Hematocrit 43 % Normal 35-47 Mean Corpuscular Volume 84 fL Normal 80-97 Mean Corpuscular Hemoglobin 28 pg Normal 27-31 Mean Corpuscular HGB Conc 33 g/dL Normal 31-36 Red Cell Distribution Width 15 % Normal 10-15 Platelet Count 399 10^3/uL Normal 150-450 Mean Platelet Volume 8.6 fL Normal 7.4-10.4 Abs Neutrophils 10.7 10^3/uL High 1.5-7.7 Abs Lymphocytes 3.3 10^3/uL Normal 1.0-4.8 Abs Monocytes 0.9 10^3/uL High 0-0.8 Abs Eosinophils 0.2 10^3/uL Normal 0-0.6 Abs Basophils 0.1 10^3/uL Normal 0-0.2 Abs Nucleated RBC 0.0 10^3/uL Granulocyte % 70.0 % Lymphocyte % 21.4 % Monocyte % 6.1 % Eosinophil % 1.6 % Basophil % 0.9 % Nucleated Red Blood Cells % 0.0 Laboratory test 11/22/2018 [facility] Partial 31.5 Normal 26.0 -38.[address] [place] [address] Time PTT [phone] Inr/Protime 11/22/2018 [facility] Inr 0.95 Normal 0.82-1.[address] [place] [address] [phone] Urinalysis 11/22/2018 [facility] Urine Color Yellow [place] [address] [place] [address] [phone] Urine Appearance Cloudy Urine Specific [place] 1.022 Normal 1.010-1.030 Urine pH 5.0 Normal 5-9 Urine Urobilinogen Negative Negative Urine Ketones Negative Negative Urine Protein Negative Negative Urine Leukocytes Negative Negative Urine Blood Negative Negative Urine Nitrite Negative Negative Urine Bilirubin Negative Negative Urine Glucose 3+(>=500 mg/dL) Abnormal Negative Laboratory test 11/20/2018 [facility] Hemoglobin A1c 7.3 % High 4.0-5.[address] (Glyco HGB) [place] [address] [phone] Comp Metabolic 11/20/2018 [facility] Sodium 139 Normal 135- [address] mmol/[place] [address] [phone] Potassium 4.1 mmol/L Normal 3.5-5.0 Chloride 106 mmol/L Normal 101-111 Co2 Carbon Dioxide 27 mmol/L Normal 22-32 Anion Gap 6 mmol/L Normal 2-11 Glucose 138 mg/dL High 70-100 Blood Urea Nitrogen 25 mg/dL High 6-24 Creatinine 0.92 mg/dL Normal 0.51-0.95 BUN/Creatinine Ratio 27.2 High 8-20 Calcium 9.2 mg/dL Normal 8.6-10.3 Total Protein 6.6 g/dL Normal 6.4-8.9 Albumin 4.0 g/dL Normal 3.2-5.2 Globulin 2.6 g/dL Normal 2-4 Albumin/Globulin Ratio 1.5 Normal 1-3 Total Bilirubin 0.40 mg/dL Normal 0.2-1.0 Alkaline Phosphatase 92 U/L Normal 34-104 Alt 16 U/L Normal 7-52 Ast 16 U/L Normal 13-39 Egfr Non- 68.0 >60 Egfr 82.2 >60 5 Laboratory test 10/09/2018 [facility] Surgical SEE RESULT [address] [place] [address] [phone] Laboratory test 10/09/2018 [facility] Clotest SEE RESULT [address] [place] [address] [phone] Laboratory test 10/09/2018 [facility] Point of Care 119 mg/dL High 70-10 [address] Glucose 0 [place] [address] [phone] Laboratory test 09/30/2018 [facility] Point of Care 93 mg/dL Normal 70-10 [address] Glucose 0 [place] [address] [phone] Laboratory test 09/30/2018 [facility] Point of Care 60 mg/dL Low 70-10 [address] Glucose 0 [place] [address] [phone] Laboratory test 09/30/2018 [facility] Point of Care 60 mg/dL Low 70-10 [address] Glucose 0 [place] [address] [phone] CBC Auto Diff 09/30/2018 [facility] White Blood 15.1 High 3.5- [address] Count 10^3/uL 0.8 [place] [address] [phone] Red Blood Count 5.13 10^6/uL High 3.70-4.87 Hemoglobin 14.1 g/dL Normal 12.0-16.0 Hematocrit 42 % Normal 35-47 Mean Corpuscular Volume 83 fL Normal 80-97 Mean Corpuscular Hemoglobin 28 pg Normal 27-31 Mean Corpuscular HGB Conc 33 g/dL Normal 31-36 Red Cell Distribution Width 15 % Normal 10-15 Platelet Count 377 10^3/uL Normal 150-450 Mean Platelet Volume 7.7 fL Normal 7.4-10.4 Abs Neutrophils 11.0 10^3/uL High 1.5-7.7 Abs Lymphocytes 2.9 10^3/uL Normal 1.0-4.8 Abs Monocytes 0.9 10^3/uL High 0-0.8 Abs Eosinophils 0.2 10^3/uL Normal 0-0.6 Abs Basophils 0.1 10^3/uL Normal 0-0.2 Abs Nucleated RBC 0.0 10^3/uL Granulocyte % 72.8 % Lymphocyte % 18.9 % Monocyte % 6.1 % Eosinophil % 1.3 % Basophil % 0.9 % Nucleated Red Blood Cells % 0.0 Comp Metabolic 09/30/2018 [facility] Sodium 139 mmol/L Normal 135-[address] [place] [address] [phone] Potassium 3.9 mmol/L Normal 3.5-5.0 Chloride 104 mmol/L Normal 101-111 Co2 Carbon Dioxide 28 mmol/L Normal 22-32 Anion Gap 7 mmol/L Normal 2-11 Glucose 52 mg/dL Low 70-100 Blood Urea Nitrogen 26 mg/dL High 6-24 Creatinine 0.92 mg/dL Normal 0.51-0.95 BUN/Creatinine Ratio 28.3 High 8-20 Calcium 9.5 mg/dL Normal 8.6-10.3 Total Protein 7.5 g/dL Normal 6.4-8.9 Albumin 4.1 g/dL Normal 3.2-5.2 Globulin 3.4 g/dL Normal 2-4 Albumin/Globulin Ratio 1.2 Normal 1-3 Total Bilirubin 0.30 mg/dL Normal 0.2-1.0 Alkaline Phosphatase 84 U/L Normal 34-104 Alt 13 U/L Normal 7-52 Ast 14 U/L Normal 13-39 Egfr Non- 68.0 >60 Egfr 82.2 >60 12 Laboratory test 09/30/2018 [facility] C Reactive 13.99 mg/L High <8.[address] [place] [address] [phone] HCG < 0.60 mIU/mL 13 Inr/Protime 09/30/2018 [facility] Inr 0.97 Normal 0.82-1.[address] [place] [address] [phone] Lipid Profile 09/17/2018 [facility] Triglycerides 173 15 (Trig/Chol/HDL) [address] mg/[place] [address] [phone] Cholesterol 128 mg/dL 16 HDL Cholesterol 34.8 mg/dL 17 LDL Cholesterol 59 mg/dL 18 Liver Function 09/17/2018 [facility] Total Protein 6.5 g/dL Normal 6.4-8.[address] [place] [address] [phone] Albumin 3.8 g/dL Normal 3.2-5.2 Globulin 2.7 g/dL Normal 2-4 Albumin/Globulin Ratio 1.4 Normal 1-3 Total Bilirubin 0.50 mg/dL Normal 0.2-1.0 Direct Bilirubin 0.10 mg/dL Normal 0.03-0.18 Indirect Bilirubin 0.4 mg/dL Normal 0.3-1.0 Alkaline Phosphatase 91 U/L Normal 34-104 Alt 14 U/L Normal 7-52 Ast 14 U/L Normal 13-39 Laboratory test 09/17/2018 [facility] Folic Acid 11.94 ng/mL >3.99 19 finding 101 (Folate) [place] [address] [phone] Vitamin B12 398 pg/mL Normal 180-914 20 Lyme Screen W/ Reflex To WB Negative Negative 21 Methylmalonic Acid Mma 0.20 nmol/mL <=0.40 22 Protein 09/17/2018 [facility] Total 6.5 g/dL 6.3 - Electrophoresis [address] Protein(Pep) 7.9 [place] [address] [phone] Albumin 3.0 g/dL Abnormal 3.4-4.7 Alpha-1 Globulin 0.3 g/dL 0.1-0.3 Alpha-2 Globulin 1.2 g/dL Abnormal 0.6-1.0 Beta Globulin 1.2 g/dL 0.7-1.2 Gamma Globulin 0.9 g/dL 0.6-1.6 Albumin/Globulin Ratio 0.85 Impression See Comment 23 Liver 08/17/2018 [facility] Direct Bilirubin 0.00 Low 0.03- 0.[address] mg/[place] [address] [phone] Lipid Profile 08/17/2018 [facility] Triglycerides 180 mg/dL 24 (Trig/Chol/HD [address] L) [place] [address] [phone] Cholesterol 209 mg/dL 25 HDL Cholesterol 42.0 mg/dL 26 LDL Cholesterol 131 mg/dL 27 Comp Metabolic 08/17/2018 [facility] Sodium 138 mmol/L Normal 135-[address] [place] [address] [phone] Potassium 4.5 mmol/L Normal 3.5-5.0 Chloride 103 mmol/L Normal 101-111 Co2 Carbon Dioxide 28 mmol/L Normal 22-32 Anion Gap 7 mmol/L Normal 2-11 Glucose 185 mg/dL High 70-100 Blood Urea Nitrogen 16 mg/dL Normal 6-24 Creatinine 0.77 mg/dL Normal 0.51-0.95 BUN/Creatinine Ratio 20.8 High 8-20 Calcium 9.2 mg/dL Normal 8.6-10.3 Total Protein 6.7 g/dL Normal 6.4-8.9 Albumin 3.7 g/dL Normal 3.2-5.2 Globulin 3.0 g/dL Normal 2-4 Albumin/Globulin Ratio 1.2 Normal 1-3 Total Bilirubin 0.40 mg/dL Normal 0.2-1.0 Alkaline Phosphatase 93 U/L Normal 34-104 Alt 17 U/L Normal 7-52 Ast 14 U/L Normal 13-39 Egfr Non- 83.5 >60 Egfr 101.0 >60 28 Lipid Panel - 08/17/2018 [facility] Creatine 172 U/L Normal 10 -[address] Kinase(CK) [place] [address] [phone] Comp Metabolic 08/02/2018 [facility] Sodium 136 Normal 135- [address] mmol/[place] [address] [phone] Potassium 4.4 mmol/L Normal 3.5-5.0 Chloride 103 mmol/L Normal 101-111 Co2 Carbon Dioxide 25 mmol/L Normal 22-32 Anion Gap 8 mmol/L Normal 2-11 Glucose 232 mg/dL High 70-100 Blood Urea Nitrogen 22 mg/dL Normal 6-24 Creatinine 0.86 mg/dL Normal 0.51-0.95 BUN/Creatinine Ratio 25.6 High 8-20 Calcium 9.0 mg/dL Normal 8.6-10.3 Total Protein 6.9 g/dL Normal 6.4-8.9 Albumin 3.9 g/dL Normal 3.2-5.2 Globulin 3.0 g/dL Normal 2-4 Albumin/Globulin Ratio 1.3 Normal 1-3 Total Bilirubin 0.60 mg/dL Normal 0.2-1.0 Alkaline Phosphatase 101 U/L Normal 34-104 Alt 18 U/L Normal 7-52 Ast 17 U/L Normal 13-39 Egfr Non- 73.8 >60 Egfr 89.4 >60 29 Laboratory test 08/02/2018 [facility] Hemoglobin A1c 9.0 % High 4.0-5.6 30 finding 101 (Glyco HGB) [place] [address] [phone] Lipid Profile 08/02/2018 [facility] Triglycerides 208 31 (Trig/Chol/HDL) mg/[place] [address] [phone] Cholesterol 200 mg/dL 32 HDL Cholesterol 38.1 mg/dL 33 LDL Cholesterol 120 mg/dL 34 Laboratory 06/21/2018 [facility] TSH (Thyroid 2.14 Normal 0.34 -5.[address] Stim Horm) mcIU/[place] [address] [phone] Comp Metabolic 06/21/2018 [facility] Sodium 137 mmol/L Normal 135-[address] [place] [address] [phone] Potassium 4.2 mmol/L Normal 3.5-5.0 Chloride 101 mmol/L Normal 101-111 Co2 Carbon Dioxide 26 mmol/L Normal 22-32 Anion Gap 10 mmol/L Normal 2-11 Glucose 146 mg/dL High 70-100 Blood Urea Nitrogen 17 mg/dL Normal 6-24 Creatinine 0.71 mg/dL Normal 0.51-0.95 BUN/Creatinine Ratio 23.9 High 8-20 Calcium 9.3 mg/dL Normal 8.6-10.3 Total Protein 6.6 g/dL Normal 6.4-8.9 Albumin 3.8 g/dL Normal 3.2-5.2 Globulin 2.8 g/dL Normal 2-4 Albumin/Globulin Ratio 1.4 Normal 1-3 Total Bilirubin 0.40 mg/dL Normal 0.2-1.0 Alkaline Phosphatase 93 U/L Normal 34-104 Alt 22 U/L Normal 7-52 Ast 19 U/L Normal 13-39 Egfr Non- 92.1 >60 Egfr 111.5 >60 35 Laboratory test 06/21/2018 [facility] C-Peptide 2.2 ng/mL 1.1 - 4.4 36 finding [address] [place] [address] [phone] Lipid Profile 06/21/2018 [facility] Triglycerides 186 mg/dL 37 (Trig/Chol/HDL) [address] [place] [address] [phone] Cholesterol 211 mg/dL 38 HDL Cholesterol 44.1 mg/dL 39 LDL Cholesterol 130 mg/dL 40 Laboratory test finding 06/21/2018 [facility] Cortisol 5.08 g/ dL 41 [address] [place] [address] [phone] 1 [id number] 2 SEE RESULT BELOW Name: MARYA PINA : [address]: Kaylah Villanueva NP Acct: [id number] Unit: [id number] AGE: 38 Location: [facility] Re11/28/18 SEX: F Status: REG REF SPEC: [id number] LAMBERTO: 11/28/18-[address]: Kaylah Villanueva NP REQ: [id number] RECD: 11/28/18 STATUS: COMP _ SOURCE: URINE SPDESC: ORDERED: Urine Culture COMMENTS: [id number] Urine Source: Random Procedure Result Reported Site Urine Culture Final 11/29/18- 1609 ML No growth of clinically significant organisms * ML - Main Lab . END OF REPORT DEPARTMENT OF PATHOLOGY, [address] [place] [address] Reese Fu M.D. Director [facility] # [id number] 3 Standard intensity warfarin therapeutic range: 2.0-3.0 High intensity warfarin therapeutic range: 2.5-3.5 4 Therapeutic target for the treatment of diabetes mellitus patients is <7% HBA1C, and in selective patients <6.0%. Please refer to [employer] diabetic care guidelines for further information. 5 Because ethnic data is not always readily [...] 15-29 5 Kidney failure <15 (or dialysis) 6 SEE RESULT BELOW Name: SILVANAANNYFN Bates : [address]: Joshua Arita MD Acct: [id number] Unit: [id number] AGE: 38 Location: ENDO Re10/09/18 SEX: F Status: DEP REF SPEC: [id number] LAMBERTO: 10/09/18- [facility] DR: Joshua Arita MD REQ: [id number] RECD: 10/09/18-5134 STATUS: MARYLOU LANGFORD DR: Tuyet Alvarado [employer] _ ORDERED: LEVEL 4 FINAL DIAGNOSIS Stomach, greater curvature, biopsy: -- Body-type gastric mucosa with mild chronic gastritis. -- No evidence of Helicobacter organisms. CLINICAL HISTORY Screening/Surveillance for malignancy in asymptomatic patient; prebariatric; no gastroesophageal reflux disease; no dysphagia; no emesis POST-OPERATIVE DIAGNOSIS EGD: larynx - symmetric; esophagus - normal; esophagogastric 38-39 cm; loose ; stomach - normal; duodenum - normal; DEEDEE test, biopsy; conclusions: loose hiatus; normal otherwise GROSS DESCRIPTION The specimen is received in formalin labeled, Biopsy Gastric Body Greater Curvature, and consists of two estevez-pink irregular to polypoid soft tissue fragments measuring 0.4 x 0.3 x 0.3 cm and 0.5 x 0.4 x 0.3cm, which are entirely submitted in one cassette. Signed by and Reported on: Corie Bhatia MD 10/10/18 1120 END OF REPORT DEPARTMENT OF PATHOLOGY, [address] [place] [address] Reese Fu M.D. Director [facility] # [id number] 7 SEE RESULT BELOW Name: MARYA PINA : [address]: Joshua Arita MD Acct: [id number] Unit: [id number] AGE: 38 Location: ENDO Re10/09/18 SEX: F Status: DEP REF SPEC: [id number] LAMBERTO: 10/09/18-[address]: Joshua Arita MD REQ: [id number] RECD: 10/09/18 STATUS: EDUARDO LANGFORD DR: Tuyet Alvarado [employer] DRIVER _ SOURCE: GAS ANTRUM SPDESC: ORDERED: Clotest Procedure Result Reported Site Clotest Final 08/07/19- 0846 ML Clotest Negative * ML - Main Lab . END OF REPORT DEPARTMENT OF PATHOLOGY, [address] [place] [address] Reese Fu M.D. Director [facility] # [id number] Bundler: [id number] Bundler: [id number] Bundler: [id number] Bundler: [id number] 12 Because ethnic data is not always [...] 5 Kidney failure <15 (or dialysis) 13 <5.0 Negative 5.0 - 25.0 Indeterminate (Repeat testing recommended after 72 hours) >25.0 Positive Perimenopausal women can display HCG levels of up to 20 mIU/mL 14 Standard intensity warfarin therapeutic range: 2.0-3.0 High intensity warfarin therapeutic range: 2.5-3.5 15 Desirable: <150 Borderline High: 150-199 High: 200-499 Very High: >500 16 Desirable: <200 Borderline High: 200-239 High: >239 17 Low: <40 Desirable: 40-60 High: >60 18 Desirable: <100 Near Optimal: 100-129 Borderline High: 130-159 High: 160-189 Very High: >189 19 accidently received on batch 18. but specimen was not sent with batch 18. 20 Normal Range 180 to 914 Indeterminate Range 145 to 180 Deficient Range <145 21 accidently received on batch 18. but specimen was not sent with batch 18. 22 ADDITIONAL INFORMATION This test was developed and its performance characteristics determined by [facility] in a manner consistent with CLIA requirements. This test has not been cleared or approved by the U.S. Food and Drug Administration. Test Performed by: [facility] - [facility] [address] [place] [address] 23 RESULT: No apparent monoclonal protein on serum electrophoresis. Test Performed by: [facility] - [facility] [address] [place] [address] 24 Desirable: <150 Borderline High: 150-199 High: 200-499 Very High: >500 25 Desirable: <200 Borderline High: 200-239 High: >239 26 Low: <40 Desirable: 40-60 High: >60 27 Desirable: <100 Near Optimal: 100-129 Borderline High: 130-159 High: 160-189 Very High: >189 28 Because ethnic data is not always readily [...] 15-29 5 Kidney failure <15 (or dialysis) 29 Because ethnic data is not always readily [...] 15-29 5 Kidney failure <15 (or dialysis) 30 Therapeutic target for the treatment of diabetes mellitus patients is <7% HBA1C, and in selective patients <6.0%. Please refer to [employer] diabetic care guidelines for further information. 31 Desirable: <150 Borderline High: 150-199 High: 200-499 Very High: >500 32 Desirable: <200 Borderline High: 200-239 High: >239 33 Low: <40 Desirable: 40-60 High: >60 34 Desirable: <100 Near Optimal: 100-129 Borderline High: 130-159 High: 160-189 Very High: >189 35 Because ethnic data is not always [...] 5 Kidney failure <15 (or dialysis) 36 Test Performed by: [facility] [employer] [address] [place] [address] 37 Desirable: <150 Borderline High: 150-199 High: 200-499 Very High: >500 38 Desirable: <200 Borderline High: 200-239 High: >239 39 Low: <40 Desirable: 40-60 High: >60 40 Desirable: <100 Near Optimal: 100-129 Borderline High: 130-159 High: 160-189 Very High: >189 41 AM 8.7-22.4 PM <10 Procedures Date Code Description Status 11/30/2018 69151 EKG Tracing & Interpretation Completed 11/22/2018 17487 EKG Tracing & Interpretation Completed 11/22/2018 59168 Inject/Drain Joint/Bursa Major W/O US Completed 11/21/2018 90949 Inject Tendon Sheath Or Ligament Aponeurosis Eg Completed Plantar Fascia 11/13/2018 33259 Polysomnography Sleep Staging 4+ Parameters Completed 10/17/201869483 Inject/Drain Joint/Bursa Major W/O US Completed 10/09/2018 73870 Endoscopy Upper GI Biopsy Completed 08/10/2017 [id number] Diabetic Retinal Eye Exam Completed 04/25/2016 [id number] Diabetic Retinal Eye Exam Completed 01/21/2015 [id number] Diabetic Retinal Eye Exam Completed Medical Devices Description No Information Available Encounters Type Date Location Provider Dx Diagnosis Office Visit 11/30/2018 [facility] Ronald Oconnell Z01.810 Encounter for 8:20a Of Chalino Funez DO FACDunia preprocedural cardiovascular examination M17.10 Unilateral primary osteoarthritis, unspecified knee R06.02 Shortness of breath R94.31 Abnormal electrocardiogram [ECG] [EKG] Z72.0 Tobacco use Z68.43 Body mass index (BMI) 50.0-59.9, adult E66.8 Other obesity E11.9 Type 2 diabetes mellitus without complications I10 Essential (primary) hypertension E78.5 Hyperlipidemia, unspecified Office Visit 11/28/2018 11:40a [facility] Internal Zsofia Rich, R35.0 Frequency of Medicine - [facility] LAB ASSOCIATE micturition E11.65 Type 2 diabetes mellitus with hyperglycemia Office Visit 11/22/2018 1:30p Damon Smith S46.011A Strain of Orthopedics at [facility] Brian musc/tend the [facility] [place] rotator cuff of right shoulder, init M75.51 Bursitis of right shoulder Office Visit 11/21/2018 1:45p [facility] Gabrielle Main G56.03 Carpal tunnel at [facility] RPA-C syndrome, bilateral upper limbs M65.311 Trigger thumb, right thumb Office Visit 11/20/2018 [facility] Smith Coch, E11.42 Type 2 diabetes 9:00a Endocrinology of MD mellitus with Chalino diabetic polyneuropathy M25.562 Pain in left knee Z79.4 senior care (current) use of insulin E78.5 Hyperlipidemia, unspecified Office Visit 11/14/2018 11:15a [facility] Nhi Hamilton, M25.562 Pain in left at [facility] [place] M.D. knee M25.462 Effusion, left knee E66.01 Morbid (severe) obesity due to excess calories M17.0 Bilateral primary osteoarthritis of knee S83.242A Oth tear of medial meniscus, current injury, left knee, init Office Visit 10/24/2018 9:45a [facility] Nhi Hamilton, M25.562 Pain in left at [place] M.D. knee M25.561 Pain in right knee M25.462 Effusion, left knee M25.461 Effusion, right knee E66.01 Morbid (severe) obesity due to excess calories M17.0 Bilateral primary osteoarthritis of knee M23.8x2 Other internal derangements of left knee Office Visit 10/23/2018 2:30p [facility] Felice Oconnell E66.01 Morbid ( severe) Services Of Chalino Billignsley M.D. obesity due to excess calories E11.42 Type 2 diabetes mellitus with diabetic polyneuropathy G43.009 Migraine w/o aura, not intractable, w/o status migrainosus Office Visit 10/17/2018 11:15a [facility] Nhi Hamilton, M25.562 Pain in left at [facility].D. knee M25.462 Effusion, left knee M17.12 Unilateral primary osteoarthritis, left knee Z68.43 Body mass index (BMI) 50.0-59.9, adult E66.01 Morbid (severe) obesity due to excess calories Office Visit 10/10/2018 10:00a [facility] Internal Tuyet Alvarado, M25.562 Pain in left Medicine - [facility] N.P. knee Office Visit 09/21/2018 9:15a Pulmonology And Noemy Graeme, R06.83 Snoring Sleep Services Of [facility] Allred J45.909 Unspecified asthma, uncomplicated F17.210 Nicotine dependence, cigarettes, uncomplicated Office Visit 09/17/2018 [facility] O[facility] E11.42 Type 2 diabetes 10:00a Neurologic Bereket Billingsley mellitus with Services Of [facility] diabetic polyneuropathy G43.009 Migraine w/o aura, not intractable, w/o status migrainosus Office Visit 09/13/2018 [facility] Gastroenterology Joshua BatesJessica E66.01 Morbid 2:45p MD Juan J (severe) obesity due to excess calories E11.65 Type 2 diabetes mellitus with hyperglycemia Office 08/17/2018 [facility] Internal Tuyet E78.00 Pure hypercholesterolemia, Visit 10:20a Medicine - Varn, N.P. 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 unspecified 12/13/2018 M17.0 Bilateral primary osteoarthritis of knee Tuyet Varn, N.P. 12/13/2018 E11.65 Type 2 diabetes mellitus with Tuyet Varn, N.P. hyperglycemia 12/12/2018 M17.10 Unilateral primary osteoarthritis, Nhi Hamilton M.D. unspecified knee 12/12/2018 M25.562 Pain in left knee Nhi Hamilton M.D. 12/12/2018 M23.8x2 Other internal derangements of left knee Nhi Hamilton M.D. 11/30/2018 Z01.810 Encounter for preprocedural Ronald Funez, DO [facility] cardiovascular examination 11/30/2018 M17.10 Unilateral primary osteoarthritis, Ronald Funez, DO [facility] unspecified knee 11/30/2018 R06.02 Shortness of breath Ronald Funez, DO [facility] 11/30/2018 R94.31 Abnormal electrocardiogram [ECG] [EKG] Ronald Funez, DO [facility] 11/30/2018 Z72.0 Tobacco use Ronald Funez [facility] 11/30/2018 Z68.43 Body mass index (BMI) 50.0-59.9, adult Ronald Funez, [facility] 11/30/2018 E66.8 Other obesity Ronald Funez, DO [facility] 11/30/2018 E11.9 Type 2 diabetes mellitus without Ronald Funez, [facility] complications 11/30/2018 I10 Essential (primary) hypertension Ronald Funez, [facility] 11/30/2018 E78.5 Hyperlipidemia, unspecified Ronald Funez, [facility] 11/28/2018 R35.0 Frequency of micturition Zsofia Rich, LAB ASSOCIATE 11/28/2018 E11.65 Type 2 diabetes mellitus with Zsofia Rich, LAB ASSOCIATE hyperglycemia 11/22/2018 R94.31 Abnormal electrocardiogram [ECG] [EKG] Christina Dunlap MD 11/22/2018 S46.011A Strain of muscle(s) and tendon(s) of the Alfonso Torres MD rotator cuff of right shoulder, initial encounter 11/22/2018 Z01.818 Encounter for other preprocedural Tuyet Varn, N.P. examination 11/22/2018 M75.51 Bursitis of right shoulder Alfonso Torres MD 11/22/2018 S83.242A Other tear of medial meniscus, current Tuyet Varn, N.P. injury, left knee, initial encounter 11/22/2018 E11.42 Type 2 diabetes mellitus with diabetic Tuyet Varn, N.P. polyneuropathy 11/22/2018 Z68.43 Body mass index (BMI) 50.0-59.9, adult Tuyet Varn, N.P. 11/22/2018 E78.5 Hyperlipidemia, unspecified Tuyet Varn, N.P. 11/22/2018 J45.40 Moderate persistent asthma, Tuyet Varn, N.P. uncomplicated 11/22/2018 R94.31 Abnormal electrocardiogram [ECG] [EKG] Tuyet Alvarado N.P. 11/22/2018 Z11.3 Encounter for screening for infections Tuyet Alvarado N.P. with a predominantly sexual mode of transmission 11/22/2018 D68.9 Coagulation defect, unspecified Tuyet Alvarado, N.P. 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 11/14/2018 M25.462 Effusion, left knee Nhi Hamilton M.D. 11/14/2018 E66.01 Morbid (severe) obesity due to excess Nhi Hamilton M.D. calories 11/14/2018 M17.0 Bilateral primary osteoarthritis of knee Nhi Haimlton M.D. 11/14/2018 S83.242A Other tear of medial meniscus, current Nhi Hamilton M.D. injury, left knee, initial encounter 11/13/2018 G47.33 Obstructive sleep apnea (adult) Noemy Bedolla MD (pediatric) 10/24/2018 M25.562 Pain in left knee Nhi Hamilton M.D. 10/24/2018 M25.561 Pain in right knee Nhi Hamilton M.D. 10/24/2018 M25.462 Effusion, left knee Nhi Hamilton M.D. 10/24/2018 M25.461 Effusion, left knee Nhi Hamilton M.D. 10/24/2018 E66.01 Morbid (severe) obesity due to excess Nhi Hamilton M.D. calories 10/24/2018 M17.0 Bilateral primary osteoarthritis of knee Nhi Hamilton M.D. 10/24/2018 M23.8x2 Other internal derangements of left knee Nhi Hamilton M.D. 10/23/2018 E66.01 Morbid (severe) obesity due to excess Felice Billingsley M.D. calories 10/23/2018 E11.42 Type 2 diabetes mellitus with diabetic Felice Billingsley M.D. polyneuropathy 10/23/2018 G43.009 Migraine without aura, not intractable, Felice Billingsley M.D. without status migrainosus 10/17/2018 M25.562 Pain in left knee Nhi Hamilton M.D. 10/17/2018 M25.462 Effusion, left knee Nhi Hamilton M.D. 10/17/2018 M17.12 Unilateral primary osteoarthritis, left Nhi Hamilton M.D. knee 10/17/2018 Z68.43 Body mass index (BMI) 50.0-59.9, adult Nhi Hamilton M.D. 10/17/2018 E66.01 Morbid (severe) obesity due to excess Nhi Hamilton M.D. calories 10/10/2018 M25.562 Pain in left knee Tuyet Alvarado, N.P. 10/09/2018 Z01.818 Encounter for other preprocedural Joshua Arita MD examination 10/09/2018 K21.9 Gastro-esophageal reflux disease without Joshua Arita MD esophagitis 10/09/2018 K22.8 Other specified diseases of esophagus Joshua Arita MD 10/09/2018 K44.9 Diaphragmatic hernia without obstruction Joshua Arita MD or gangrene 10/09/2018 E66.01 Morbid (severe) obesity due to excess Joshua Arita MD calories 09/21/2018 R06.83 Snoring Noemy Bedolla MD 09/21/2018 J45.909 Unspecified asthma, uncomplicated Noemy Bedolla MD 09/21/2018 F17.210 Nicotine dependence, cigarettes, Noemy Bedolla MD uncomplicated 09/17/2018 E11.42 Type 2 diabetes mellitus with diabetic Felice Billingsley M.D. polyneuropathy 09/17/2018 G43.009 Migraine without aura, not intractable, Felice Billingsley M.D. without status migra 09/13/2018 E66.01 Morbid (severe) obesity due to excess Joshua Arita MD calories 09/13/2018 E11.65 Type 2 diabetes mellitus with Joshua Arita MD hyperglycemia 08/29/2018 H66.93 Otitis media, unspecified, bilateral Tuyet Varn, N.P. 08/29/2018 J20.9 Acute bronchitis, unspecified Tuyet Varn, N.P. 08/29/2018 J45.901 Unspecified asthma with (acute) Tuyet Varn, N.P. exacerbation 08/29/2018 L03.116 Cellulitis of left lower limb Tuyet Varn, N.P. 08/17/2018 E78.00 Pure hypercholesterolemia, unspecified Tuyet Varn, N.P. 08/17/2018 E11.65 Type 2 diabetes mellitus with Tuyet Varn, N.P. hyperglycemia 08/17/2018 M25.569 Pain in unspecified knee Tuyet Varn, N.P. 08/17/2018 M54.5 Low back pain Tuyet Varn, N.P. 08/17/2018 J45.41 Moderate persistent asthma with (acute) Tuyet Varn, N.P. exacerbation 08/17/2018 F17.210 Nicotine dependence, cigarettes, Tuyet Varn, N.P. 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 at [facility]12/18/2018 7:30 am - Joby Ledezma PA-C at [facility] at [id number]/18/2018 7:30 am - GLENN Reyes at [facility] at [id number]/17/2018 11:30 am - Ronald Funez DO FACC at [facility] AT [facility]/01/2019 3:00 pm - Yennifer Painting NP at [facility]12/27/2018 9:45 am - Alfonso Torres MD at [facility] at Msxiam3302/20/2019 9:00 am - Luis Murdock MD at [facility]12/18/2018 7:30 am - Nhi Hamilton M.D. at [facility] at [email or web address]/29/2019 11:45 am - Felice Billingsley M.D. at [facility]02/21/2019 11:00 am - Tuyet Alvarado NDomenico at [facility] Internal Medicine - Ccm12/13/2018 - Tuyet Alvarado NDomenicoJ06.9 Acute upper respiratory infection, unspecifiedNew Medication:Benzonatate 200 mg - one by mouth three times daily as needed for coughComments:You have a viral upper respiratory infection. I have prescribed Benzonatate 200 mg to help your cough. You may take 1 every 8 hours.Use your Fluticasone nasal spray.If your symptoms do not improve, please give the office a call.M17.0 Bilateral primary osteoarthritis of kneeE11.65 Type 2 diabetes mellitus with hyperglycemia Functional Status Description No Information Available Mental Status Description No Information Available Referrals Refer to Reason for Referral Status Appt Date Ronald Funez DO, [facility] Patient is a 38 year old morbidly obese [place] woman with diabetes, hypertension, and asthma. Her EKG is abnormal. I have referred her for cardiac evaluation. Thank you for seeing this complex patient. [address] [place] [address] [phone] Irving Quiroga MD diabetic neuropathy [address] [place] [address] [phone] Yennifer Naylor M.D. bilateral CTS [facility] [address] [place] [address] [phone] Nhi Hamilton MD Patient with bilateral knee pain, particularly Sent 2018 left, referred for evaluation and treatment. Thank you for seeing this very pleasant patient. [address] [place] [address] [phone]
--- OUTSIDE RECORDS SUMMARY | 2018-12-17 14:12 | XMS REPORT | Continuity of Care Document ---
:1980 External Reference #:[id number] Author Name Alfonso Torres MD (transmitted by agent of provider Darwin Nichole) Address [address] [place] [address] Care Team Providers Name Role Phone Galo Fritz MD - Ophthalmology Care Team Information Plant Pathologist Ronald Nunez MD - Surgery Care Team Information Plant Pathologist [phone] Karla Rich MD - Internal Care Team Information Plant Pathologist [facility] Lili Herrera FNP-e - Family Care Team Information Plant Pathologist [facility] - Care Team Information Plant Pathologist [facility] Yennifer Naylor M.D. - Surgery of Care Team Information Plant Pathologist [phone] the Hand Problems Active Problems Provider Date Type II diabetes mellitus uncontrolled Constance Larkin M.D. Onset: 05/12/2011 Note: on insulin since 2018 Blood coagulation disorder Tuyet Alvarado, N.P. Onset: 07/18/2017 Morbid obesity Constance Larkin M.D. Onset: 05/12/2011 Tobacco user Constance Larkin M.D. Onset: 05/12/2011 Benign essential hypertension Cristina Garcia M.D. Onset: 03/14/2012 Sleep apnea Karla Rich M.D. Onset: 03/06/2012 Note: PFTs October 2017 normal with FVC 105% DLCO 70%; Asthma Karla Rich M.D. Onset: 02/21/2017 Lymphedema Tuyet Alvarado, N.Brie. Onset: 09/04/2017 Allergic rhinitis Constance Larkin M.D. [...] Heavy tobacco smoker (more than 10 cigarettes/day) Smoking Status Reviewed: 11/22/18 Heavy tobacco smoker (more than 10 cigarettes/day) Exercise Type/Frequency Exercises sporadically Allergies, Adverse Reactions, Alerts Active Allergies Reaction Severity Comments Date Hydrocodone Pt states she itch all over. 05/21/2012 Latex itchy and rash 08/17/2015 Inactive Allergies NKDA 05/12/2011 Medications Active Medications SIG Qnty Indications Ordering Date Provider Vitamin D Take 1 Tablet By 4caps [place] (Ergocalciferol) Mouth Once A Week Varn, N.P. 9 [id number] For 8 Weeks Capsules Tylenol With Codeine #3 1 tablet by mouth 21tabs M25.562 [place] every 8 hours as Varn, N.P. 9 300-30mg Tablets needed cough Topiramate 1 po qhs 30tabs G43.009 Felice . 100mg Tablets Bereket Billingsley 9 Lyrica take two caps by 120caps G62.9 Felice . 50mg Capsules mouth twice a Bereket Billingsley 9 day. brand name necessary. Atorvastatin Calcium take 1 tablet by 90tabs E78.00 [place] 20mg mouth at bedtime Varn, N.P. 9 Tablets Ibuprofen 1 by mouth every 90tabs M54.5 [place] 600mg Tablets 6 hours as needed Varn, N.P. 9 for pain Advair Diskus inhale 1 dose by 60units J45.41 [place] 500-50mcg/Dose mouth twice daily Varn, N.P. 9 Aerosol (not taking) Humulin N 30 units QHS or 20ml E11.65 [facility], 100Unit/ML Suspension as directed, MDD 9 60 Humulin R 30 units tid-ac [facility]ml [facility], [facility]Unit/ML Solution or as directed, MD Blake MDD 180 Onetouch Verio test four times 150units [facility], Strips daily and as MD Blake needed Onetouch Ultrasoft use to test blood 300units [facility], Lancets glucose three MD Blake Misc times a day and as needed Ozempic Hold On File, 1mg 3ml E11.65 [facility], 1mg/Dose Solution injection once MD Blake Pen-Inject weekly, hold on file for second month Insulin Syringe/0.5ML/30G 4 times daily for 150units E11.40 [facility], X 1/2" insulin MD Blake 30G X 1/2" 0.5 ML [facility] Blood Glucose Monitoring test blood sugars 1units E11.65 [place] System once fasting and Varn, N.P. 9 W/Device Kit 2 hours after dinner meal Blood Glucose Test test blood sugar 100units E11.65 [place] Strips fasting in in the Varn, N.P. 9 morning and 2 hours after dinner meal Lancet Device use when testing 100units E11.65 [place] [facility] blood gluose Varn, N.P. 9 Pantoprazole Sodium [...] Monica, 150mg Tablets By Mouth Twice A SPEECH COACH 8 Day Hydrochlorothiazide Take One Tablet 30tabs Tuyet 25mg By Mouth Every Varn, N.P. 8 Tablets Day Glucose Meter Test Strips for use 3-4 times 100units [place] Advanced daily Varn, N.P. 8 Strips Nebulizer use three times a 1units [place] Kit/Tubing/Mouthpiece day as needed Varn, N.P. 8 Kit Fluoxetine HCL Take One Capsule 30caps F43.23 [place] 20mg Capsules By Mouth Every Varn, N.P. 8 Day Montelukast Sodium Take One Tablet 30tabs J45.41 [place] 10mg Tablets By Mouth Every Varn, N.P. 7 Day Freestyle Lancets test up to 2 300units [place] Misc times a day or as Varn, N.P. 7 needed Metformin HCL ER Take 4 Tablets By 120tabs E11.65 [place] 500mg Tablets Mouth With Dinner Varn, N.P. 7 ER 24HR Fluconazole Take 1 Tablet By 2tabs [place] 150mg Tablets Mouth Then May Varn, N.P. 7 Repeat In 3 Days as Needed Simethicone 1 by mouth after 30caps R19.7 [place] 180mg Capsules each meal as Varn, N.P. 7 needed Ventolin HFA Inhale Two Puffs 18units [place] 108(90Base) By Mouth Four Varn, N.P. 6 mcg/Act Aerosol Times A Day as Needed Freestyle Lite Blood check fingerstick 1units E11.65 [place] Glucose Monitoring System three times daily Varn, N.P. 6 or as needed, DX Device - E11.65 Nebulizer use three times a 1units J20.9 [place] Device day as needed Varn, N.P. 6 Ipratropium inhale the 180units J20.9 [place]/Albuterol Sulfate contents of one Varn, N.P. 6 vial via 0.5-2.5(3)mg/3ML Solution nebulizer three times a day as needed for asthma Senna Laxative 1 tab by mouth 15tabs K59.00 Noemy 25mg Tablets 1-2 times as MD Graeme 6 needed Compression Stockings knee high 2units I80.02 [place] Misc stockings 20 - 30 Varn, N.P. 6 mm Cetirizine HCL 1 by mouth every 30tabs J30.9 [place] 10mg Tablets day Varn, N.P. 6 Ramipril Take One Capsule 30caps I10 [place] 5mg Capsules By Mouth Every Varn, N.P. 5 Day Fluticasone Propionate Carter One Carter 16units [place] In Each Nostril Varn, N.P. 4 50mcg/Act Suspension Every Day as Needed Nebulizer J45.909 Cristina Garcia, Compressor/Dualfilter/7' M.D. 3 Tubing/Aerosol T/Mthpiece Kit Methocarbamol 1 by mouth twice Unknown 00/000 Tablets a day as needed 0 for [...] PM, MDD 08/07/2018 100 (70-30)100Unit/ML Supn Pen [place] 1/2" use 1 pen needle 100units E11.65 [...] Pen-Inject Amitriptyline HCL 2 tablets, (20 60tabs E11.40 Luis Murdock MD 06/21/2018 - mg) at bedtime 10/18/2018 10mg Tablets Medications Administered in Office Medication SIG Qnty Indications Ordering Provider Date Depomedrol 40MG SHAMIKA Villarreal 11/21/2018 Injection Depomedrol 40MG Nhi Hamilton M.D. 10/17/2018 Injection Records Fee Tuyet Alvarado N.P. 08/29/2018 Injection Immunizations CPT Code Status Date Vaccine Lot # [id number] Given 10/04/2016 Tdap - Tetanus/Diptheria/Acellular Pertussis [id number] Given 01/20/2015 Flu Vaccine Split Virus Preservative Free For [id number] Indiv [id number] Older [id number] Given 05/21/2012 Pneumonia Vaccine [id number] Vital Signs Date Vital Result Comment 11/22/2018 1:45pm Height 63.25 inches 5'3.25" Heart Rate 81 /min BP Systolic 120 mmHg BP Diastolic 60 mmHg Respiratory Rate 18 /min Body Temperature 98.0 F Pain Level 8 11/22/2018 10:15am Height 63.25 inches 5'3.25" Weight 298.12 lb Heart Rate 78 /min BP Systolic 115 mmHg BP Diastolic 70 mmHg Body Temperature 96.9 F O2 % BldC Oximetry 98 % BMI (Body Mass Index) 52.4 kg/m2 Results Test Date Facility Test Result H/L Range Note Laboratory test 11/20/2018 [facility] Hemoglobin A1c 7.3 % High 4.0-5.[address] (Glyco HGB) [place] [address] [phone] Comp Metabolic 11/20/2018 [facility] Sodium 139 mmol/L Normal 135-[address] [place] [address] [phone] Potassium 4.1 mmol/L Normal 3.5-5.0 Chloride 106 [...] Egfr Non- 68.0 >60 Egfr 82.2 >60 2 Laboratory test 10/09/2018 [facility] Surgical SEE RESULT [address] [place] [address] [phone] Laboratory test 10/09/2018 [facility] Clotest SEE RESULT [address] [place] [address] [phone] Laboratory test 10/09/2018 [facility] Point of Care 119 mg/dL High 70-10 [address] Glucose 0 [place] [address] [phone] Inr/Protime 09/30/2018 [facility] Inr 0.97 Normal 0.82- [address] 1.09 [place] [address] [phone] Laboratory test 09/30/2018 [facility] Point of Care 93 mg/dL Normal 70-10 [address] Glucose 0 [place] [address] [phone] Laboratory test 09/30/2018 [facility] Point of Care 60 mg/dL Low 70-10 [address] Glucose 0 [place] [address] [phone] Laboratory test 09/30/2018 [facility] Point of Care 60 mg/dL Low 70-10 [address] Glucose 0 [place] [address] [phone] CBC Auto Diff 09/30/2018 [facility] White Blood 15.1 High 3.5- [address] Count 10^3/uL 0.8 [place] [address] [phone] Red Blood Count 5.13 10^6/uL High 3.70-4.87 [...] Red Blood Cells % 0.0 Laboratory test 09/30/2018 [facility] C Reactive 13.99 mg/L High <8.[address] [place] [address] [phone] HCG < 0.60 mIU/mL 10 Comp Metabolic 09/30/2018 [facility] Sodium 139 mmol/L Normal 135-145 Panel [address] [place] [address] [phone] Potassium 3.9 mmol/L Normal 3.5-5.0 Chloride 104 [...] Egfr Non- 68.0 >60 Egfr 82.2 >60 11 Lipid Profile 09/17/2018 [facility] Triglycerides 173 mg/dL 12 (Trig/Chol/HDL) [address] [place] [address] [phone] Cholesterol 128 mg/dL 13 HDL Cholesterol 34.8 mg/dL 14 LDL Cholesterol 59 mg/dL 15 Liver Function 09/17/2018 [facility] Total Protein 6.5 g/dL Normal 6.4-8.9 Panel [address] [place] [address] [phone] Albumin 3.8 g/dL Normal 3.2-5.2 Globulin 2.7 g/dL Normal 2-4 Albumin/Globulin Ratio 1.4 Normal 1-3 Total Bilirubin 0.50 mg/dL Normal 0.2-1.0 Direct Bilirubin 0.10 mg/dL Normal 0.03-0.18 Indirect Bilirubin 0.4 mg/dL Normal 0.3-1.0 Alkaline Phosphatase 91 U/L Normal 34-104 Alt 14 U/L Normal 7-52 Ast 14 U/L Normal 13-39 Protein 09/17/2018 [facility] Total 6.5 g/dL 6.3 - Electrophoresis 101 Protein(Pep) 7.9 [place] [address] [phone] Albumin 3.0 g/dL Abnormal 3.4-4.7 Alpha-1 Globulin 0.3 g/dL 0.1-0.3 Alpha-2 Globulin 1.2 g/dL Abnormal 0.6-1.0 Beta Globulin 1.2 g/dL 0.7-1.2 Gamma Globulin 0.9 g/dL 0.6-1.6 Albumin/Globulin Ratio 0.85 Impression See Comment 16 Laboratory test 09/17/2018 [facility] Folic Acid 11.94 ng/mL >3.99 17 finding 101 (Folate) [place] [address] [phone] Vitamin B12 398 pg/mL Normal 180-914 18 Lyme Screen W/ Reflex To WB Negative Negative 19 Methylmalonic Acid Mma 0.20 nmol/mL <=0.40 20 Lipid Profile 08/17/2018 [facility] Triglycerides 180 mg/dL 21 (Trig/Chol/HDL) [address] [place] [address] [phone] Cholesterol 209 mg/dL 22 HDL Cholesterol 42.0 mg/dL 23 LDL Cholesterol 131 mg/dL 24 Liver Function 08/17/2018 [facility] Direct 0.00 Low 0.03- 0.18 Panel 101 Bilirubin mg/[place] [address] [phone] Comp Metabolic 08/17/2018 [facility] Sodium 138 Normal 135- [address] mmol/[place] [address] [phone] Potassium 4.5 mmol/L Normal 3.5-5.0 Chloride 103 [...] Egfr Non- 83.5 >60 Egfr 101.0 >60 25 Lipid Panel 08/17/2018 [facility] Creatine 172 U/L Normal 10- 223 - JFM [address] Kinase(CK) [place] [address] [phone] Lipid 08/02/2018 [facility] Triglycerides 208 [address] mg/dL (Trig/Chol/[place] [address] DL) [phone] Cholesterol 200 mg/dL 27 HDL Cholesterol 38.1 mg/dL 28 LDL Cholesterol 120 mg/dL 29 Comp Metabolic 08/02/2018 [facility] Sodium 136 mmol/L Normal 135-[address] [place] [address] [phone] Potassium 4.4 mmol/L Normal 3.5-5.0 Chloride 103 [...] Egfr Non- 73.8 >60 Egfr 89.4 >60 30 Laboratory test 08/02/2018 [facility] Hemoglobin A1c 9.0 % High 4.0-5.6 [address] (Glyco HGB) [place] [address] [phone] Laboratory test 06/21/2018 [facility] TSH (Thyroid 2.14 Normal 0.34-5.[address] Stim Horm) mcIU/[place] [address] [phone] Comp Metabolic 06/21/2018 [facility] Sodium 137 Normal 135- [address] mmol/[place] [address] [phone] Potassium 4.2 mmol/L Normal 3.5-5.0 Chloride 101 [...] Egfr Non- 92.1 >60 Egfr 111.5 >60 32 Laboratory test 06/21/2018 [facility] C-Peptide 2.2 ng/mL 1.1 - 4.4 33 finding [address] [place] [address] [phone] Lipid Profile 06/21/2018 [facility] Triglycerides 186 mg/dL 34 (Trig/Chol/HDL) [address] [place] [address] [phone] Cholesterol 211 mg/dL 35 HDL Cholesterol 44.1 mg/dL 36 LDL Cholesterol 130 mg/dL 37 Laboratory test finding 06/21/2018 [facility] Cortisol 5.08 g/ dL [address] [place] [address] [phone] 1 Therapeutic target for the treatment of diabetes mellitus patients is <7% HBA1C, and in selective patients <6.0%. Please refer to [employer] diabetic care guidelines for further information. 2 Because ethnic data is not always [...] 5 Kidney failure <15 (or dialysis) 3 SEE RESULT BELOW Name: MARYA PINA : [address]: Joshua Arita MD Acct: [id number] Unit: [id number] AGE: 38 Location: ENDO Re10/09/18 SEX: F Status: DEP REF SPEC: [id number] LAMBERTO: 10/09/18- SUBM DR: Joshua Arita MD REQ: [id number] RECD: 10/09/18105 STATUS: MARYLOU LANGFORD DR: Tuyet Alvarado SPEECH COACH _ ORDERED: LEVEL 4 FINAL DIAGNOSIS Stomach, [...] 1120 END OF REPORT DEPARTMENT OF PATHOLOGY, [address] [place] [address] Reese Fu M.D. Director EUGENIE # [id number] 4 SEE RESULT BELOW Name: MARYA PINA : [address]: Joshua Ariat MD Acct: [id number] Unit: [id number] AGE: 38 Location: ENDO Re10/09/18 SEX: F Status: DEP REF SPEC: [id number] LAMBERTO: 10/09/[address] [facility] [address]: Joshua Arita MD REQ: [id number] RECD: 10/09/18 STATUS: EDUARDO LANGFORD DR: Tuyet Alvarado SPEECH COACH _ SOURCE: GAS ANTRUM SPDESC: ORDERED: Clotest Procedure Result Reported Site Clotest Final 10/10/18- 0846 ML Clotest Negative * ML - Main Lab . END OF REPORT DEPARTMENT OF PATHOLOGY, [address] [place] [address] Reese Fu M.D. Director [facility] # [id number] 5 Obiee Architect: [id number] 6 Standard intensity warfarin therapeutic range: 2.0-3.0 High intensity warfarin therapeutic range: 2.5-3.5 7 Obiee Architect: [id number] Obiee Architect: [id number] 9 Obiee Architect: [id number] 10 <5.0 Negative 5.0 - 25.0 Indeterminate (Repeat testing recommended after 72 hours) >25.0 Positive Perimenopausal women can display HCG levels of up to 20 mIU/mL 11 Because ethnic data is not always [...] 5 Kidney failure <15 (or dialysis) 12 Desirable: <150 Borderline High: 150-199 High: 200-499 Very High: >500 13 Desirable: <200 Borderline High: 200-239 High: >239 14 Low: <40 Desirable: 40-60 High: >60 15 Desirable: <100 Near Optimal: 100-129 Borderline High: 130-159 High: 160-189 Very High: >189 16 RESULT: No apparent monoclonal protein on serum electrophoresis. Test Performed by: [facility] [address] [place] [address] 17 accidently received on batch 18. but specimen was not sent with batch 18. 18 Normal Range 180 to 914 Indeterminate Range 145 to 180 Deficient Range <145 19 accidently received on batch 18. but specimen was not sent with batch 18. 20 ADDITIONAL INFORMATION This test was developed and its performance characteristics determined by [facility] in a manner consistent with CLIA requirements. This test has not been cleared or approved by the U.S. Food and Drug Administration. Test Performed by: [facility] [address] [place] [address] 21 Desirable: <150 Borderline High: 150-199 High: 200-499 Very High: >500 22 Desirable: <200 Borderline High: 200-239 High: >239 23 Low: <40 Desirable: 40-60 High: >60 24 Desirable: <100 Near Optimal: 100-129 Borderline High: 130-159 High: 160-189 Very High: >189 25 Because ethnic data is not always [...] 5 Kidney failure <15 (or dialysis) 26 Desirable: <150 Borderline High: 150-199 High: 200-499 Very High: >500 27 Desirable: <200 Borderline High: 200-239 High: >239 28 Low: <40 Desirable: 40-60 High: >60 29 Desirable: <100 Near Optimal: 100-129 Borderline High: 130-159 High: 160-189 Very High: >189 30 Because ethnic data is not always [...] 5 Kidney failure <15 (or dialysis) 31 Therapeutic target for the treatment of diabetes mellitus patients is <7% HBA1C, and in selective patients <6.0%. Please refer to [employer] diabetic care guidelines for further information. 32 Because ethnic data is not always readily [...] 15-29 5 Kidney failure <15 (or dialysis) 33 Test Performed by: [facility] [address] [facility] [address] [place] [address] 34 Desirable: <150 Borderline High: 150-199 High: 200-499 Very High: >500 35 Desirable: <200 Borderline High: 200-239 High: >239 36 Low: <40 Desirable: 40-60 High: >60 37 Desirable: <100 Near Optimal: 100-129 Borderline High: 130-159 High: 160-189 Very High: >189 38 AM 8.7-22.4 PM <10 Procedures Date Code Description Status 11/22/2018 58822 EKG Tracing & Interpretation Completed 11/21/2018 60918 Inject Tendon Sheath Or Ligament Aponeurosis Eg Completed Plantar Fascia 10/17/2018 81182 Inject/Drain Joint/Bursa Major W/O US Completed 10/09/2018 27598 Endoscopy Upper GI Biopsy Completed 08/10/2017 997267189 Diabetic Retinal Eye Exam Completed 04/25/2016 647155195 Diabetic Retinal Eye Exam Completed 01/21/2015 817245464 Diabetic Retinal Eye Exam Completed Medical Devices Description No Information Available Encounters Type Date Location Provider Dx Diagnosis Office Visit 10/24/2018 Orthopedic Nhi Hamilton, M25.562 Pain in left knee 9:45a Services Of [place]a [place] M25.561 Pain in right knee M25.462 Effusion, left knee M25.461 Effusion, right knee E66.01 Morbid (severe) obesity due to excess calories M17.0 Bilateral primary osteoarthritis of knee M23.8x2 Other internal derangements of left knee Office Visit 10/23/2018 2:30p [facility] S. E66.01 Morbid ( severe) Services Of Chalino Billingsley M.D. obesity due to excess calories E11.42 Type 2 diabetes mellitus with diabetic polyneuropathy G43.009 Migraine w/o aura, not intractable, w/o status migrainosus Office Visit 10/17/2018 11:15a Orthopedic Services Nhi Hamilton M25.562 Pain in left Of [facility] M.[facility]. knee M25.462 Effusion, left knee M17.12 Unilateral primary osteoarthritis, left knee Z68.43 Body mass index (BMI) 50.0-59.9, adult E66.01 Morbid (severe) obesity due to excess calories Office Visit 10/10/2018 10:00a [facility] Internal Tuyet Alvarado, M25.562 Pain in left Medicine - Ccmob N.P. knee Office Visit 09/21/2018 9:15a Pulmonology And Noemy Graeme, R06.83 Snoring Sleep Services Of MD Allred J45.909 Unspecified asthma, uncomplicated F17.210 Nicotine dependence, cigarettes, uncomplicated Office Visit 09/17/2018 Damon Oconnell E11.42 Type 2 diabetes 10:00a Neurologic Bereket Billingsley mellitus with Services Of [facility] diabetic polyneuropathy G43.009 Migraine w/o aura, not intractable, w/o status migrainosus Office Visit 09/13/2018 [facility] Gastroenterology Joshua JanaJessica E66.01 Morbid 2:45p MD Juan J (severe) obesity due to excess calories E11.65 Type 2 diabetes mellitus with hyperglycemia Office 08/17/2018 [facility] Internal Tuyet E78.00 Pure hypercholesterolemia, Visit 10:20a Medicine - Varn, N.P. unspecified Ccmob E11.65 Type 2 diabetes mellitus with hyperglycemia M25.569 Pain in unspecified knee M54.5 Low back pain J45.41 Moderate persistent asthma with (acute) exacerbation F17.210 Nicotine dependence, cigarettes, uncomplicated Office Visit 08/02/2018 8:40a [facility] and Luis Murdock, Z79.4 alf Endocrinology of [facility] (current) use of insulin E11.65 Type 2 diabetes mellitus with hyperglycemia Office Visit 06/21/2018 11:00a [facility] and Luis Murdock, E11.40 Type 2 diabetes Endocrinology of MD mellitus with [facility] diabetic neuropathy, unsp E11.65 Type 2 diabetes mellitus with hyperglycemia E04.9 Nontoxic goiter, unspecified Assessments Date Code Description Provider 11/22/2018 S46.011A Strain of muscle(s) and tendon(s) of the Alfonso Torres MD rotator cuff of right shoulder, initial encounter 11/22/2018 Z01.818 Encounter for other preprocedural Tuyet Varn, N.P. examination 11/22/2018 S83.242A Other tear of medial meniscus, current Tuyet Varn, N.P. injury, left knee, initial encounter 11/22/2018 E11.42 Type 2 diabetes mellitus with diabetic Tuyet Varn, N.P. polyneuropathy 11/22/2018 Z68.43 Body mass index (BMI) 50.0-59.9, adult Tuyet Varn, N.P. 11/22/2018 E78.5 Hyperlipidemia, unspecified Tuyet Varn, N.P. 11/22/2018 J45.40 Moderate persistent asthma, uncomplicated Tuyet Varn, N.P. 11/22/2018 R94.31 Abnormal electrocardiogram [ECG] [EKG] Tuyet [...] in left knee Luis Murdock MD 11/20/2018 E78.5 Hyperlipidemia, unspecified Luis Murdock MD 11/14/2018 M25.562 Pain in left knee Nhi Hamilton M.D. 11/14/2018 M25.462 Effusion, left knee Nhi Hamilton M.D. 11/14/2018 E66.01 Morbid (severe) obesity due to kera Hamilton M.D. calories 11/14/2018 M17.0 Bilateral primary osteoarthritis of knee Nhi Hamilton M.D. 11/14/2018 S83.242A Other tear of medial meniscus, current Nhi Hamilton M.D. injury, left knee, initial encounter 10/24/2018 M25.562 Pain in left knee Nhi Hamilton M.D. 10/24/2018 M25.561 Pain in right knee Nhi Hamilton M.D. 10/24/2018 M25.462 Effusion, left knee Nhi Hamilton M.D. 10/24/2018 M25.461 Effusion, left knee Nhi Hamilton M.D. 10/24/2018 E66.01 Morbid (severe) obesity due to kera Hamilton M.D. calories 10/24/2018 M17.0 Bilateral primary [...] 10/10/2018 M25.562 Pain in left knee Tuyet Christiano, N.P. 10/09/2018 Z01.818 Encounter for other preprocedural [...] cigarettes, Tuyet Varn, N.P. uncomplicated 08/02/2018 Z79.4 long term care social worker (current) use of insulin Luis Murdock MD 08/02/2018 E11.65 Type 2 diabetes mellitus with Luis Murdock MD hyperglycemia 06/21/2018 E11.40 Type 2 diabetes mellitus with diabetic Luis Murdock MD neuropathy, unspecifi 06/21/2018 E11.65 Type 2 diabetes mellitus with Luis Murdock MD hyperglycemia 06/21/2018 E04.9 Nontoxic goiter, unspecified Luis Murdock MD Plan of Treatment Future Appointment(s):12/27/2018 9:45 am - Alfonso Torres MD at [facility]11/30/2018 8:20 am - Ronald Funez DO FAC at [facility]02/20/2019 9:00 am - Luis Murdock MD at [facility]12/18/2018 7:30 am - Nhi Hamilton M.D. at [facility]12/12/2018 9:15 am - Nhi Hamilton M.D. at [facility]01/29/2019 11:45 am - Felice Billingsley M.D. at [place] [facility]11/29/2018 10:30 am - Yennifer Painting NP at [facility]02/21/2019 11:00 am - Tuyet Alvarado N.P. at [facility] Internal Medicine - [facility] Centerob11/22/2018 - Alfonso Torres, MDS46.011A Strain of muscle(s) and tendon(s) of the rotator cuff of right shoulder, initial encounterNew Therapy:Physical TherapyFollow up:Follow up: 4- 6 weeks - PT Functional Status Description No Information Available Mental Status Description No Information Available Referrals Refer to Dr Reason for Referral Status Appt Date Ronald Funez, DO, [facility] Patient is a 38 year old morbidly obese [place] woman with diabetes, hypertension, and asthma. Her EKG is abnormal. I have referred her for cardiac evaluation. Thank you for seeing this complex patient. [address] [place] [address] [phone] Irving Quiroga MD diabetic neuropathy [address] [place] [address] [phone] Yennifer Naylor M.D. bilateral CTS [address] [place] [address] [phone] Nhi Hamilton MD Patient with bilateral knee pain, particularly Sent 2018 left, referred for evaluation and treatment. Thank you for seeing this very pleasant patient. [address] [place], [place] [id number] [phone]
--- OUTSIDE RECORDS SUMMARY | 2018-12-17 14:12 | XMS REPORT | Continuity of Care Document ---
:1980 External Reference #:[id number] Author Name Nhi Hamilton M.D. (transmitted by agent of provider Cecilia Victor) Address [address] [facility] [address] [facility] [place] [address] Care Team Providers Name Role Phone Galo Fritz MD - Ophthalmology Care Team Information Ems Coordinator Ronald Nunez MD - Surgery Care Team Information Ems Coordinator [phone] Karla Rich MD - Internal Care Team Information Ems Coordinator [facility] Lili Herrera FNP-e - Family Care Team Information Ems Coordinator [facility] - Care Team Information Ems Coordinator Administrative Supervisor Yennifer Naylor M.D. - Surgery of Care Team Information Ems Coordinator the Hand Problems Active Problems Provider Date [...] Rich M.D. Onset: 02/21/2017 Lymphedema Tuyet Alvarado, N.P. Onset: 09/04/2017 Allergic rhinitis Constance Larkin [...] Use Regularly uses Marijuana Smoking Status Reviewed: 12/12/18 Heavy tobacco smoker (more than 10 cigarettes/day) Exercise Type/Frequency Exercises sporadically Allergies, Adverse Reactions, Alerts Active Allergies Reaction Severity Comments Date Hydrocodone Pt states she itch all over. 05/21/2012 Latex itchy and rash 08/17/2015 Inactive Allergies NKDA 05/12/2011 Medications Active Medications SIG Qnty Indications Ordering Date Provider Vitamin D Take 1 Tablet By 4caps [place] (Ergocalciferol) Mouth Once A Week Varn, N.P. 9 [id number] For 8 Weeks Capsules Tylenol With Codeine #3 1 tablet by mouth 21tabs M25.562 [place] every 8 hours as Varn, N.P. 9 300-30mg Tablets needed cough Topiramate 1 po qhs 30tabs G43.009 [facility]. 100mg Tablets Bereket Billingsley 9 Lyrica take two caps by 120caps G62.9 [facility]. 50mg Capsules mouth twice a Bereket Billingsley 9 day. brand name necessary. code c Atorvastatin Calcium take 1 tablet by 90tabs E78.00 [place] 20mg mouth at bedtime Varn, N.P. 9 Tablets Ibuprofen 1 by mouth every 90tabs M54.5 [place] 600mg Tablets 6 hours as needed Varn, N.P. 9 for pain Advair Diskus inhale 1 dose by 60units J45.41 [place] 500-50mcg/Dose mouth twice daily Varn, N.P. 9 Aerosol (not taking) Humulin N 35 units QHS or 20ml E11.65 [facility], 100[facility]/ML Suspension as directed, MDD 9 60 Humulin R 30 units tid-ac 50ml [facility], 100Unit/ML Solution or as directed, MD Blake MDD 180 Onetouch Verio test four times 150units [facility], Strips daily and as MD Blake needed Onetouch Ultrasoft use to test blood 300units [facility], Lancets glucose three MD Blake Misc times a day and as needed Ozempic Hold On File, 1mg 3ml E11.65 [facility], 1mg/Dose Solution injection once MD Blake Pen-Inject weekly, hold on file for second month Insulin Syringe/0.5ML/30G 4 times daily for 150units E11.40 [facility], X 1/2" insulin MD Blake 30G X 1/2" 0.5 ML [facility] Blood Glucose Monitoring test blood sugars 1units E11.65 [place] System once fasting and Varn, N.P. 9 W/Device Kit 2 hours after dinner meal Blood Glucose Test test blood sugar 100units E11.65 [place] Strips fasting in in the Varn, N.P. 9 morning and 2 hours after dinner meal Lancet Device use when testing 100units E11.65 [place] [facility] blood gluose Varn, N.P. 9 Pantoprazole Sodium [...] Monica, 150mg Tablets By Mouth Twice A [employer] INSPECTOR 8 Day Hydrochlorothiazide Take One Tablet 30tabs [place] 25mg By Mouth Every Varn, N.P. 8 Tablets Day Glucose Meter Test Strips for use 3-4 times 100units [place] Advanced daily Varn, N.P. 8 Strips Nebulizer use three times a 1units [place] Kit/Tubing/Mouthpiece day as needed Varn, N.P. 8 Kit Fluoxetine HCL Take One Capsule 30caps F43.23 [place] 20mg Capsules By Mouth Every Varn, N.P. 8 Day Montelukast Sodium Take One Tablet 30tabs J45.41 [place] 10mg Tablets By Mouth Every Varn, N.P. 7 Day Freestyle Lancets test up to 2 300units [place] Misc times a day or as Varn, N.P. 7 needed Metformin HCL ER Take 4 Tablets By 120tabs E11.65 [place] 500mg Tablets Mouth With Dinner Varn, N.P. 7 ER 24HR Fluconazole Take 1 Tablet By 2tabs [place] 150mg Tablets Mouth Then May Varn, N.P. 7 Repeat In 3 Days as Needed Simethicone 1 by mouth after 30caps R19.7 [place] 180mg Capsules each meal as Varn, N.P. 7 needed Ventolin HFA Inhale Two Puffs 18units [place] 108(90Base) By Mouth Four Varn, N.P. 6 mcg/Act Aerosol Times A Day as Needed Freestyle Lite Blood check fingerstick 1units E11.65 [place] Glucose Monitoring System three times daily Varn, N.P. 6 or as needed, DX Device - E11.65 Nebulizer use three times a 1units J20.9 [place] Device day as needed Varn, N.P. 6 Ipratropium inhale the 180units J20.9 [place]/Albuterol Sulfate contents of one Varn, N.P. 6 vial via 0.5-2.5(3)mg/3ML Solution nebulizer three times a day as needed for asthma Senna Laxative 1 tab by mouth 15tabs K59.00 Noemy 25mg Tablets 1-2 times as MD Graeme 6 needed Compression Stockings knee high 2units I80.02 [place] Misc stockings 20 - 30 Varn, N.P. 6 mm Cetirizine HCL 1 by mouth every 30tabs J30.9 [place] 10mg Tablets day Varn, N.P. 6 Ramipril Take One Capsule 30caps I10 [place] 5mg Capsules By Mouth Every Varn, N.P. 5 Day Fluticasone Propionate Stevens One Stevens 16units [place] In Each Nostril Varn, N.P. 4 50mcg/Act Suspension Every Day as Needed Nebulizer J45.909 Cristina Garcia, Compressor/Dualfilter/7' M.D. 3 Tubing/Aerosol T/Mthpiece Kit Methocarbamol 1 by mouth twice Unknown 0000/ Tablets a day as needed 0 for spasm History Medications Diclofenac Sodium apply 4 gms to 100gm M25.562 Tuyet Alvarado, 10/10/2018 - 1% both knees every N.P. 10/11/2018 Gel 6 hours as needed pain Tramadol HCL 1 tablet three 21tabs M25.562 Tuyet Cashn, 10/10/2018 - 50mg times daily as N.P. [...] PM, MDD 08/07/2018 100 (70-30)100Unit/ML Supn Pen [place] 1/2" use 1 pen needle 100units E11.65 [...] CPT Code Status Date Vaccine Lot # [id number] Given 10/04/2016 Tdap - Tetanus/Diptheria/Acellular Pertussis [id number] Given 01/20/2015 Flu Vaccine Split Virus Preservative Free For [id number] Indiv [id number] Older [id number] Given 05/21/2012 Pneumonia Vaccine [id number] Vital Signs Date Vital Result Comment 12/12/2018 8:55am Height 63.25 inches 5'3.25" Weight 290.00 lb Heart Rate 83 /min BP Systolic 128 mmHg BP Diastolic 82 mmHg Body Temperature 95.4 F Pain Level 7 BMI (Body Mass Index) 51.0 kg/m2 11/30/2018 7:52am Height 63.25 inches 5'3.25" Weight 289.00 lb with shoes Heart Rate 71 /min BP Systolic 112 mmHg Rue reg cuff BP Diastolic 76 mmHg Rue reg cuff BP Systolic Sitting 116 mmHg Lue reg cuff BP Diastolic Sitting 68 mmHg Lue reg cuff BP Systolic Standing 92 mmHg Lue reg cuff BP Diastolic Standing 70 mmHg Lue reg cuff Respiratory Rate 14 /min BMI (Body Mass Index) 50.8 kg/m2 Results Test Date Facility Test Result H/L Range Note Urine Culture And 11/28/2018 [facility] Urine Culture SEE RESULT 1, [address] [place] [address] [phone] Ua Routine 11/28/2018 Hr Director In House Ua Specific 1.020 [place] Ua PH 5 Ua Color dark yellow Ua Appera cloudy Ua WBC trace Ua Protein trace Ua Glucose normal Ua Ketones negative Ua Bilirubin + Ua Urobilinogen normal Ua Nitrite + Ua Occult Blood negative HIV 1&2 p24 11/22/2018 [facility] HIV 4th Nonreactive Nonreactive Screen [address] [place] [address] [phone] Laboratory 11/22/2018 [facility] Syphillis Igg Negative Negative test finding [address] W/[place] [address] [phone] GC/Chlamydia 11/22/2018 [facility] Chlamydia Negative Negative Amplified Rna [address] [place] [address] Abby [phone] Neisseria gonorrhoeae (GC) Abby Negative Negative CBC Auto 11/22/2018 [facility] White Blood 15.3 10^3/uL High 3.5-10.[address] [place] [address] [phone] Red Blood Count 5.06 10^6/uL High 3.70-4.87 [...] Blood Cells % 0.0 Laboratory test 11/22/2018 [facility] Partial 31.5 Normal 26.0 -38.[address] [place] [address] Time PTT [phone] Inr/Protime 11/22/2018 [facility] Inr 0.95 Normal 0.82-1.[address] [place], [place] [address] [phone] Urinalysis 11/22/2018 [facility] Urine Color Yellow [place] [address] [place] [address] [phone] Urine Appearance Cloudy Urine Specific [place] 1.022 Normal 1.010-1.030 Urine pH 5.0 Normal 5-9 Urine Urobilinogen Negative Negative Urine Ketones Negative Negative Urine Protein Negative Negative Urine Leukocytes Negative Negative Urine Blood Negative Negative Urine Nitrite Negative Negative Urine Bilirubin Negative Negative Urine Glucose 3+(>=500 mg/dL) Abnormal Negative Laboratory test 11/20/2018 [facility] Hemoglobin A1c 7.3 % High 4.0-5.[address] (Glyco HGB) [place] [address] [phone] Comp Metabolic 11/20/2018 [facility] Sodium 139 Normal 135- [address] mmol/[place] [address] [phone] Potassium 4.1 mmol/L Normal 3.5-5.0 Chloride 106 [...] Egfr 82.2 >60 5 Laboratory test 10/09/2018 [facility] Surgical SEE RESULT [address] [place] [address] [phone] Laboratory test 10/09/2018 [facility] Clotest SEE RESULT [address] [place], [place] [address] [phone] Laboratory test 10/09/2018 [facility] Point of Care 119 mg/dL High 70-10 [address] Glucose 0 [place] [address] [phone] Laboratory test 09/30/2018 [facility] Point of Care 93 mg/dL Normal 70-10 [address] Glucose 0 [place], [place] [address] [phone] Laboratory test 09/30/2018 [facility] Point of Care 60 mg/dL Low 70-10 [address] Glucose 0 [place], [place] [address] [phone] Laboratory test 09/30/2018 [facility] Point of Care 60 mg/dL Low 70-10 [address] Glucose 0 [place] [address] [phone] CBC Auto Diff 09/30/2018 [facility] White Blood 15.1 High 3.5- [address] Count 10^3/uL 0.8 [place], [place] [address] [phone] Red Blood Count 5.13 10^6/uL High 3.70-4.87 [...] Blood Cells % 0.0 Comp Metabolic 09/30/2018 [facility] Sodium 139 mmol/L Normal 135-[address] [place] [address] [phone] Potassium 3.9 mmol/L Normal 3.5-5.0 Chloride 104 [...] Egfr 82.2 >60 12 Laboratory test 09/30/2018 [facility] C Reactive 13.99 mg/L High <8.[address] [place] [address] [phone] HCG < 0.60 mIU/mL 13 Inr/Protime 09/30/2018 [facility] Inr 0.97 Normal 0.82-1.[address] [place] [address] [phone] Lipid Profile 09/17/2018 [facility] Triglycerides 173 15 (Trig/Chol/HDL) 101 mg/[place] [address] [phone] Cholesterol 128 mg/dL 16 HDL Cholesterol 34.8 mg/dL 17 LDL Cholesterol 59 mg/dL 18 Liver Function 09/17/2018 [facility] Total Protein 6.5 g/dL Normal 6.4-8.[address] [place] [address] [phone] Albumin 3.8 g/dL Normal 3.2-5.2 Globulin 2.7 g/dL Normal 2-4 Albumin/Globulin Ratio 1.4 Normal 1-3 Total Bilirubin 0.50 mg/dL Normal 0.2-1.0 Direct Bilirubin 0.10 mg/dL Normal 0.03-0.18 Indirect Bilirubin 0.4 mg/dL Normal 0.3-1.0 Alkaline Phosphatase 91 U/L Normal 34-104 Alt 14 U/L Normal 7-52 Ast 14 U/L Normal 13-39 Laboratory test 09/17/2018 [facility] Folic Acid 11.94 ng/mL >3.[address] (Folate) [place] [address] [phone] Vitamin B12 398 pg/mL Normal 180-914 20 Lyme Screen W/ Reflex To WB Negative Negative 21 Methylmalonic Acid Mma 0.20 nmol/mL <=0.40 22 Protein 09/17/2018 [facility] Total 6.5 g/dL 6.3 - Electrophoresis [address] Protein(Pep) 7.9 [place] [address] [phone] Albumin 3.0 g/dL Abnormal 3.4-4.7 Alpha-1 Globulin 0.3 g/dL 0.1-0.3 Alpha-2 Globulin 1.2 g/dL Abnormal 0.6-1.0 Beta Globulin 1.2 g/dL 0.7-1.2 Gamma Globulin 0.9 g/dL 0.6-1.6 Albumin/Globulin Ratio 0.85 Impression See Comment 23 Liver 08/17/2018 [facility] Direct Bilirubin 0.00 Low 0.03- 0.[address] mg/[place] [address] [phone] Lipid Profile 08/17/2018 [facility] Triglycerides 180 mg/dL 24 (Trig/Chol/HD [address] L) [place] [address] [phone] Cholesterol 209 mg/dL 25 HDL Cholesterol 42.0 mg/dL 26 LDL Cholesterol 131 mg/dL 27 Comp Metabolic 08/17/2018 [facility] Sodium 138 mmol/L Normal 135-[address] [place] [address] [phone] Potassium 4.5 mmol/L Normal 3.5-5.0 Chloride 103 [...] 101.0 >60 28 Lipid Panel - 08/17/2018 [facility] Creatine 172 U/L Normal 10 -[address] Kinase(CK) [place] [address] [phone] Comp Metabolic 08/02/2018 [facility] Sodium 136 Normal 135- [address] mmol/[place] [address] [phone] Potassium 4.4 mmol/L Normal 3.5-5.0 Chloride 103 [...] Egfr 89.4 >60 29 Laboratory test 08/02/2018 [facility] Hemoglobin A1c 9.0 % High 4.0-5.6 30 finding 101 (Glyco HGB) [place] [address] [phone] Lipid Profile 08/02/2018 [facility] Triglycerides 208 31 (Trig/Chol/HDL) [address] DR[address] mg/[place] [address] [phone] Cholesterol 200 mg/dL 32 HDL Cholesterol 38.1 mg/dL 33 LDL Cholesterol 120 mg/dL 34 Laboratory 06/21/2018 [facility] TSH (Thyroid 2.14 Normal 0.34 -5.60 test finding 101 Stim Horm) mcIU/[place] [address] [phone] Comp Metabolic 06/21/2018 [facility] Sodium 137 mmol/L Normal 135-[address] [place] [address] [phone] Potassium 4.2 mmol/L Normal 3.5-5.0 Chloride 101 [...] Egfr 111.5 >60 35 Laboratory test 06/21/2018 [facility] C-Peptide 2.2 ng/mL 1.1 - 4.4 36 finding [address] [place] [address] [phone] Lipid Profile 06/21/2018 [facility] Triglycerides 186 mg/dL 37 (Trig/Chol/HDL) [address] [place] [address] [phone] Cholesterol 211 mg/dL 38 HDL Cholesterol 44.1 mg/dL 39 LDL Cholesterol 130 mg/dL 40 Laboratory test finding 06/21/2018 [facility] Cortisol 5.08 g/ dL 41 [address] [place] [address] [phone] 1 [id number] 2 SEE RESULT BELOW Name: MARYA PINA : [address]: Kaylah Villanueva NP Acct: [id number] Unit: [id number] AGE: 38 Location: [facility] Re11/28/18 SEX: F Status: REG REF SPEC: [id number] LAMBERTO: 11/28/18-1315 [facility] [address]: Kaylah Villanueva NP REQ: [id number] RECD: 11/28/18 STATUS: COMP _ SOURCE: URINE SPDESC: ORDERED: Urine Culture COMMENTS: [id number] Urine Source: Random Procedure Result Reported Site Urine Culture Final 11/29/18- 1609 ML No growth of clinically significant organisms * ML - Main Lab . END OF REPORT DEPARTMENT OF PATHOLOGY, [address] [place] [address] Reese Fu M.D. Director [facility] # [id number] 3 Standard intensity warfarin therapeutic range: 2.0-3.0 High intensity warfarin therapeutic range: 2.5-3.5 4 Therapeutic target for the treatment of diabetes mellitus patients is <7% HBA1C, and in selective patients <6.0%. Please refer to [place] [employer] Association diabetic care guidelines for further [...] (or dialysis) 6 SEE RESULT BELOW Name: MARYA PINA : [address]: Joshua Arita MD Acct: [id number] Unit: [id number] AGE: 38 Location: ENDO Re10/09/18 SEX: F Status: DEP REF SPEC: [id number] LAMBERTO: 10/09/18- [facility] DR: Joshua Arita MD REQ: [id number] RECD: 08/ STATUS: MARYLOU LANGFORD DR: Tuyet Alvarado [employer] _ ORDERED: LEVEL 4 FINAL DIAGNOSIS Stomach, [...] 1120 END OF REPORT DEPARTMENT OF PATHOLOGY, [address] [place] [address] Reese Fu M.D. Director [facility] # [id number] 7 SEE RESULT BELOW Name: MARYA PINA : [address]: Joshua Arita MD Acct: [id number] Unit: [id number] AGE: 38 Location: ENDO Re10/09/18 SEX: F Status: DEP REF SPEC: [id number] LAMBERTO: 10/09/18 [facility] [address]: Joshua Arita MD REQ: [id number] RECD: 10/09/18 STATUS: EDUARDO LANGFORD DR: Tuyet Alvarado [employer] INS[employer] _ SOURCE: GAS ANTRUM SPDESC: ORDERED: Clotest Procedure Result Reported Site Clotest Final 10/10/18- 0846 ML Clotest Negative * ML - Main Lab . END OF REPORT DEPARTMENT OF PATHOLOGY, [address] [place] [address] Reese Fu M.D. Director [facility] # [id number] 8 Sound System Installer: [id number] 9 Sound System Installer: [id number] 10 Sound System Installer: [id number] 11 Sound System Installer: [id number] 12 Because ethnic data is not always [...] developed and its performance characteristics determined by [facility] in a manner consistent with CLIA requirements. This test has not been cleared or approved by the U.S. Food and Drug Administration. Test Performed by: [facility] [address] [place] [address] 23 RESULT: No apparent monoclonal protein on serum electrophoresis. Test Performed by: [facility] [address] [place] [address] 24 Desirable: <150 Borderline High: 150-199 High: [...] in selective patients <6.0%. Please refer to [place] Diabetes Association diabetic care guidelines for further [...] <15 (or dialysis) 36 Test Performed by: [facility] [address] [place] [address] 37 Desirable: <150 Borderline High: 150-199 High: 200-499 Very High: >500 38 Desirable: <200 Borderline High: 200-239 High: >239 39 Low: <40 Desirable: 40-60 High: >60 40 Desirable: <100 Near Optimal: 100-129 Borderline High: 130-159 High: 160-189 Very High: >189 41 AM 8.7-22.4 PM <10 Procedures Date Code Description Status 11/30/2018 94453 EKG Tracing & Interpretation Completed 11/22/2018 22055 EKG Tracing & Interpretation Completed 11/22/2018 98289 Inject/Drain Joint/Bursa Major W/O US Completed 11/21/2018 43400 Inject Tendon Sheath Or Ligament Aponeurosis Eg Completed Plantar Fascia 11/13/2018 53456 Polysomnography Sleep Staging 4+ Parameters Completed 10/17/201834090 Inject/Drain Joint/Bursa Major W/O US Completed 10/09/2018 37384 Endoscopy Upper GI Biopsy Completed 08/10/2017 282088157 Diabetic Retinal Eye Exam Completed 04/25/2016 646030370 Diabetic Retinal Eye Exam Completed 01/21/2015 920484121 Diabetic Retinal Eye Exam Completed Medical Devices Description No Information Available Encounters Type Date Location Provider Dx Diagnosis Office Visit 11/30/2018 [facility] Ronald Oconnell Z01.810 Encounter for 8:20a Of Chalino Funez DO FACDunia preprocedural cardiovascular examination M17.10 Unilateral primary osteoarthritis, unspecified knee R06.02 Shortness of breath R94.31 Abnormal electrocardiogram [ECG] [EKG] Z72.0 Tobacco use Z68.43 Body mass index (BMI) 50.0-59.9, adult E66.8 Other obesity E11.9 Type 2 diabetes mellitus without complications I10 Essential (primary) hypertension E78.5 Hyperlipidemia, unspecified Office Visit 11/28/2018 11:40a [facility] Internal Zsofia Rich, R35.0 Frequency of Medicine - Ccmob MANAGER LABOR DELIVERY micturition E11.65 Type 2 diabetes mellitus with hyperglycemia Office Visit 11/22/2018 1[place]p [place] S46.011A Strain of Orthopedics at [facility] Brian musc/tend the [place] rotator cuff of right shoulder, init M75.51 Bursitis of right shoulder Office Visit 11/21/2018 1:45p [facility] Gabrielle Main, 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 knee M25.462 Effusion, left knee E66.01 Morbid (severe) obesity due to excess calories M17.0 Bilateral primary osteoarthritis of knee S83.242A Oth tear of medial meniscus, current injury, left knee, init Office Visit 10/24/2018 9:45a [facility] Nhi Hamilton, M25.562 Pain in left at [place] M.D. knee M25.561 Pain in right knee M25.462 Effusion, left knee M25.461 Effusion, right knee E66.01 Morbid (severe) obesity due to excess calories M17.0 Bilateral primary osteoarthritis of knee M23.8x2 Other internal derangements of left knee Office Visit 10/23/2018 2:30p [place]awan Oconnell E66.01 Morbid ( severe) Services Of Chalino Billingsley M.D. obesity due to excess calories E11.42 Type 2 diabetes mellitus with diabetic polyneuropathy G43.009 Migraine w/o aura, not intractable, w/o status migrainosus Office Visit 10/17/2018 11:15a [facility] Nhi Hamilton, M25.562 Pain in left at [place] M.D. knee M25.462 Effusion, left knee M17.12 Unilateral primary osteoarthritis, left knee Z68.43 Body mass index (BMI) 50.0-59.9, adult E66.01 Morbid (severe) obesity due to excess calories Office Visit 10/10/2018 10:00a [facility] Internal Tuyet Alvarado, M25.562 Pain in left Medicine - Ccmob N.P. knee Office Visit 09/21/2018 9:15a Pulmonology And Noemy Bedolla, R06.83 Snoring Sleep Services Of [facility] Allred J45.909 Unspecified asthma, uncomplicated F17.210 Nicotine dependence, cigarettes, uncomplicated Office Visit 09/17/2018 [place] E11.42 Type 2 diabetes 10:00a Neurologic Bereket Billingsley mellitus with Services [facility] diabetic polyneuropathy G43.009 Migraine w/o aura, not intractable, w/o status migrainosus Office Visit 09/13/2018 [facility] Gastroenterology Joshua JanaJessica E66.01 Morbid 2:45p MD Juan J (severe) obesity due to excess calories E11.65 Type 2 diabetes mellitus with hyperglycemia Office 08/17/2018 [facility] Internal Tuyet E78.00 Pure hypercholesterolemia, Visit 10:20a Medicine - Varn, N.P. unspecified Ccmob E11.65 Type 2 diabetes mellitus with hyperglycemia M25.569 Pain in unspecified knee M54.5 Low back pain J45.41 Moderate persistent asthma with (acute) exacerbation F17.210 Nicotine dependence, cigarettes, uncomplicated Office Visit 08/02/2018 8:40a [facility] Luis Murdock, Z79.4 skilled nursing Endocrinology of [facility] (current) use of insulin E11.65 Type 2 diabetes mellitus with hyperglycemia Office Visit 06/21/2018 11:00a [facility] Luis Murdock, E11.40 Type 2 diabetes Endocrinology of MD mellitus with [facility] diabetic neuropathy, unsp E11.65 Type 2 diabetes mellitus with hyperglycemia E04.9 Nontoxic goiter, unspecified Assessments Date Code Description Provider 12/12/2018 M17.10 Unilateral primary osteoarthritis, Nhi Hamilton M.D. unspecified knee 12/12/2018 M25.562 Pain in left knee Nhi Hamilton M.D. 12/12/2018 M23.8x2 Other internal derangements of left knee Nhi Hamilton M.D. 11/30/2018 Z01.810 Encounter for preprocedural Ronald Funez DO [facility] cardiovascular examination 11/30/2018 M17.10 Unilateral primary osteoarthritis, Ronald Funez, DO [facility] unspecified knee 11/30/2018 R06.02 Shortness of breath Ronald Funez DO [facility] 11/30/2018 R94.31 Abnormal electrocardiogram [ECG] [EKG] Ronald Funez DO [facility]AC 11/30/2018 Z72.0 Tobacco use Ronald Funez DO [facility] 11/30/2018 Z68.43 Body mass index (BMI) 50.0-59.9, adult Ronald Funez, DO [facility] 11/30/2018 E66.8 Other obesity Ronald Funez, DO [facility] 11/30/2018 E11.9 Type 2 diabetes mellitus without Ronald Funez, DO [facility] complications 11/30/2018 I10 Essential (primary) hypertension Ronald Funez, DO [facility] 11/30/2018 E78.5 Hyperlipidemia, unspecified Ronald Funez, DO [facility] 11/28/2018 R35.0 Frequency of micturition Zsofia Rich, [employer]NA[employer] 11/28/2018 E11.65 Type 2 diabetes mellitus with Zsofia Rich, MANAGER [employer]IVERY hyperglycemia 11/22/2018 R94.31 Abnormal electrocardiogram [ECG] [EKG] [...] 11/22/2018 R94.31 Abnormal electrocardiogram [ECG] [EKG] Tuyet Varn, N.P. 11/22/2018 Z11.3 Encounter for screening for infections Tuyet Varn, N.P. with a predominantly sexual mode of transmission 11/22/2018 D68.9 Coagulation defect, unspecified Tuyet Varn, N.P. 11/21/2018 G56.03 Carpal tunnel syndrome, bilateral upper Gabrielle Bitting, RPA-C limbs 11/21/2018 M65.311 Trigger thumb, right thumb Gabrielle Bitemma, RPA-C 11/20/2018 E11.42 Type 2 diabetes mellitus with diabetic Luis Murdock MD polyneuropathy 11/20/2018 M25.562 Pain in left knee Luis Murdock MD 11/20/2018 Z79.4 skilled nursing (current) use of insulin Luis Murdock MD [...] cigarettes, Tuyet Varn, N.P. uncomplicated 08/02/2018 Z79.4 skilled nursing (current) use of insulin Luis Murdock MD 08/02/2018 E11.65 Type 2 diabetes mellitus with Luis Murdock MD hyperglycemia 06/21/2018 E11.40 Type 2 diabetes mellitus with diabetic Luis Murdock MD neuropathy, unspecifi 06/21/2018 E11.65 Type 2 diabetes mellitus with Luis Murdock MD hyperglycemia 06/21/2018 E04.9 Nontoxic goiter, unspecified Luis Murdock MD Plan of Treatment Future Appointment(s):12/31/2018 2:15 pm - Nhi Hamilton M.D. at [facility] at [id number]/18/2018 7:30 am - Joby Ledezma PA-C at [facility] at [email or web address]/18/2018 7:30 am - GLENN Reyes at [facility] at [email or web address]/17/2018 11:30 am - Ronald Funez DO FAC at [facility] [place] 3:00 pm - Yennifer Painting NP at [facility]12/27/2018 9:45 am - Alfonso Torres MD at [facility] at Oycnjr5302/20/2019 9:00 am - Luis Murdock MD at [facility]12/18/2018 7:30 am - Nhi Hamilton M.D. at [facility] at [email or web address]/29/2019 11:45 am - Felice Billingsley M.D. at [facility]02/21/2019 11:00 am - Tuyet Alvarado N.P. at [facility] - Nhi Hamilton M.D.M17.10 Unilateral primary osteoarthritis, unspecified kneeFollow up:Follow up: 2 weeks after bstggqkB89.562 Pain in left kneeM23.8x2 Other internal derangements of left knee Functional Status Description No Information Available Mental Status Description No Information Available Referrals Refer to Dr Reason for Referral Status Appt Date Ronald Funez, DO, [facility] Patient is a 38 year old morbidly obese [place] woman with diabetes, hypertension, and asthma. Her EKG is abnormal. I have referred her for cardiac evaluation. Thank you for seeing this complex patient. [address] [place] [address] [phone] Irving Quiroga MD diabetic neuropathy [address] [place] [address] [phone] Yennifer Naylor M.D. bilateral CTS [address] [place] [address] [phone] Nhi Hamilton MD Patient with bilateral knee pain, particularly Sent 2018 left, referred for evaluation and treatment. Thank you for seeing this very pleasant patient. [address] [id number] [phone]
--- OUTSIDE RECORDS SUMMARY | 2018-12-17 14:12 | XMS REPORT | Continuity of Care Document ---
:1980 External Reference #:[id number] Author Name Tuyet Alvarado N.P. (transmitted by agent of provider Jenniffer Washington) Address [address], [place] [address] Care Team Providers Name Role Phone Galo Fritz MD - Ophthalmology Care Team Information Lapel Stitcher Ronald Nunez MD - Surgery Care Team Information Lapel Stitcher [phone] Karla Rich MD - Internal Care Team Information Lapel Stitcher [facility] Lili Herrera FNP-e - Family Care Team Information Lapel Stitcher [phone] [facility] - Care Team Information Lapel Stitcher [phone] [facility] [place] Yennifer Naylor M.D. - Surgery of Care Team Information Lapel Stitcher the Hand Problems Active Problems Provider Date [...] primary osteoarthritis Nhi Hamilton M.D. Onset: 10/24/2018 Social History Type Date Description Comments Sex [...] Vitamin D Take 1 Tablet By 4caps Natalbany (Ergocalciferol) Mouth Once A Week Varn, N.P. 9 [id number] For 8 Weeks Capsules Tylenol With Codeine #3 1 tablet by mouth 21tabs M25.562 Natalbany every 8 hours as Varn, N.P. 9 300-30mg Tablets needed cough Topiramate 1 po qhs 30tabs G43.009 [facility]. 100mg Tablets Bereket Billingsley 9 Lyrica take two caps by 120caps G62.9 [facility]. 50mg Capsules mouth twice a Bereket Billingsley 9 day. brand name necessary. Atorvastatin Calcium take 1 tablet by 90tabs E78.00 Natalbany 20mg mouth at bedtime Varn, N.P. 9 Tablets Ibuprofen 1 by mouth every 90tabs M54.5 Natalbany 600mg Tablets 6 hours as needed Varn, N.P. 9 for pain Advair Diskus inhale 1 dose by 60units J45.41 Natalbany 500-50mcg/Dose mouth twice daily Varn, N.P. 9 Aerosol (not taking) Humulin N 30 units QHS or 20ml E11.65 [facility], 100Unit/ML Suspension as directed, ANASTASIA Blake 60 Humulin R 30 units tid-ac 50ml [facility], 100Unit/ML Solution or as directed, MD Blake MDD 180 Onetouch Verio test four times 150units [facility], Strips daily and as MD Blake needed Onetouch Ultrasoft use to test blood 300units [facility], Lancets glucose three MD Blake Misc times a day and as needed Ozempic Hold On File, 1mg 3ml E11.65 [facility], 1mg/Dose Solution injection once MD Blake Pen-Inject weekly, hold on file for second month Insulin Syringe/0.5ML/30G 4 times daily for 150units E11.40 [facility], X 1/2" insulin MD Blake 30G X 1/2" 0.5 [facility] Blood Gl[facility] Monitoring test blood sugars 1units E11.65 Tuyet System once fasting and Varn, N.P. 9 W/Device Kit 2 hours after dinner meal Blood Glucose Test test blood sugar 100units E11.65 Natalbany Strips fasting in in the Varn, N.P. 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 8 Tablets Day Glucose Meter Test Strips for use 3-4 times 100units Natalbany Advanced daily Varn, N.P. 8 Strips Nebulizer use three times a 1units Natalbany Kit/Tubing/Mouthpiece day as needed Varn, N.P. 8 Kit Fluoxetine HCL Take One Capsule 30caps F43.23 Natalbany 20mg Capsules By Mouth Every Varn, N.P. 8 Day Montelukast Sodium Take One Tablet 30tabs J45.41 Natalbany 10mg Tablets By Mouth Every Varn, N.P. 7 Day Freestyle Lancets test up to 2 300units Natalbany Misc times a day or as Varn, N.P. 7 needed Metformin HCL ER Take 4 Tablets By 120tabs E11.65 Natalbany 500mg Tablets Mouth With Dinner Varn, N.P. 7 ER 24HR Fluconazole Take 1 Tablet By 2tabs Natalbany 150mg Tablets Mouth Then May Varn, N.P. 7 Repeat In 3 Days as Needed Simethicone 1 by mouth after 30caps R19.7 Natalbany 180mg Capsules each meal as Varn, N.P. 7 needed Ventolin HFA Inhale Two Puffs 18units Natalbany 108(90Base) By Mouth Four Varn, N.P. 6 mcg/Act Aerosol Times A Day as Needed Freestyle Lite Blood check fingerstick 1units E11.65 Natalbany Glucose Monitoring System three times daily Varn, N.P. 6 or as needed, DX Device - E11.65 Nebulizer use three times a 1units J20.9 Natalbany Device day as needed Varn, N.P. 6 Ipratropium inhale the 180units J20.9 Natalbany [place]/Albuterol Sulfate contents of one Varn, N.P. 6 vial via 0.5-2.5(3)mg/3ML Solution nebulizer three times a day as needed for asthma Senna Laxative 1 tab by mouth 15tabs K59.00 Noemy 25mg Tablets 1-2 times as MD Graeme 6 needed Compression Stockings knee high 2units I80.02 Natalbany Misc stockings 20 - 30 Varn, N.P. 6 mm Cetirizine HCL 1 by mouth every 30tabs J30.9 Natalbany 10mg Tablets day Varn, N.P. 6 Ramipril Take One Capsule 30caps I10 Natalbany 5mg Capsules By Mouth Every Varn, N.P. 5 Day Fluticasone Propionate [place] One [place] 16units Natalbany In Each Nostril Varn, N.P. 4 50mcg/Act Suspension Every Day as Needed Nebulizer J45.909 Cristina Garcia, Compressor/Dualfilter/7' M.D. 3 Tubing/Aerosol T/Mthpiece Kit Methocarbamol 1 by mouth twice Unknown /000 Tablets a day as needed 0 for spasm History Medications Diclofenac Sodium apply 4 gms to 100gm M25.562 Tuyet Alvarado, 10/10/2018 - 1% both knees every N.P. 10/11/2018 Gel 6 hours as needed pain Tramadol HCL 1 tablet three 21tabs M25.562 Tuyet Alvarado, 10/10/2018 - 50mg times daily as N.P. 10/26/2018 Tablets needed Topiramate 1 qhs for 1 week 120tabs G43.009 Felice Oconnell 09/17/2018 - 25mg then 2 qhs for 1 Bereket Billingsley 10/23/2018 Tablets week then 3 qhs for 1 week then 4 qhs Lyrica 1 by mouth every 120caps G62.9 Felice Mcmahon. 09/17/2018 - 25mg Capsules night at bedtime Bereket Billingsley 09/17/2018 for 1 week then 1 twice a day for 1 week then 2 twice a day mdd 4 Humulin 70/30 50 units Am, 30 30ml E11.65 Luis Murdock MD 08/02/2018 - Kwikpen units PM, MDD 08/07/2018 100 (70-30)100Unit/ML Supn Pen [place] 1/2" use 1 pen needle 100units E11.65 [...] CPT Code Status Date Vaccine Lot # [id number] Given 10/04/2016 Tdap - Tetanus/Diptheria/Acellular Pertussis [id number] Given 01/20/2015 Flu Vaccine Split Virus Preservative Free For [id number] Indiv [id number] Older [id number] Given 05/21/2012 Pneumonia Vaccine [id number] Vital Signs Date Vital Result Comment 11/22/2018 10:15am Height 63.25 inches 5'3.25" Weight 298.12 lb Heart Rate 78 /min BP Systolic 115 mmHg BP Diastolic 70 mmHg Body Temperature 96.9 F O2 % BldC Oximetry 98 % BMI (Body Mass Index) 52.4 kg/m2 11/21/2018 1:30pm Height 63.25 inches 5'3.25" Weight 298.00 lb Heart Rate 76 /min BP Systolic 128 mmHg BP Diastolic 68 mmHg BMI (Body Mass Index) 52.4 kg/m2 Results Test Date Facility Test Result H/L Range Note Order 11/22/2018 [facility] In-House EKG <pending> Laboratory test 11/20/2018 [facility] Hemoglobin A1c 7.3 % High 4.0-5.[address] (Glyco HGB) [place] [address] [phone] Comp Metabolic 11/20/2018 [facility] Sodium 139 mmol/L Normal 135-[address] [place] [address] [phone] Potassium 4.1 mmol/L Normal 3.5-5.0 Chloride 106 [...] Egfr 82.2 >60 2 Laboratory test 10/09/2018 [facility] Surgical SEE RESULT [address] [place] [address] [phone] Laboratory test 10/09/2018 [facility] Clotest SEE RESULT [address] [place] [address] [phone] Laboratory test 10/09/2018 [facility] Point of Care 119 mg/dL High 70-10 [address] Glucose 0 [place] [address] [phone] Laboratory test 09/30/2018 [facility] Point of Care 93 mg/dL Normal 70-10 [address] Glucose 0 [place] [address] [phone] Laboratory test 09/30/2018 [facility] Point of Care 60 mg/dL Low 70-10 [address] Glucose 0 [place], [place] [id number] [phone] Inr/Protime 09/30/2018 [facility] Inr 0.97 Normal 0.82- [address] 1.09 [place] [address] [phone] Laboratory test 09/30/2018 [facility] Point of Care 60 mg/dL Low 70-10 [address] Glucose 0 [place] [address] [phone] CBC Auto Diff 09/30/2018 [facility] White Blood 15.1 High 3.5- [address] Count 10^3/uL 0.8 [place] [address] [phone] Red Blood Count 5.13 10^6/uL High 3.70-4.87 [...] Blood Cells % 0.0 Comp Metabolic 09/30/2018 [facility] Sodium 139 mmol/L Normal 135-[address] [place] [address] [phone] Potassium 3.9 mmol/L Normal 3.5-5.0 Chloride 104 [...] Egfr Non- 68.0 >60 Egfr 82.2 >60 10 Laboratory test 09/30/2018 [facility] C Reactive 13.99 mg/L High <8.[address] [facility] [place] [address] [phone] HCG < 0.60 mIU/mL 11 Lipid Profile 09/17/2018 [facility] Triglycerides 173 mg/dL 12 (Trig/Chol/HDL) [address] [place] [address] [phone] Cholesterol 128 mg/dL 13 HDL Cholesterol 34.8 mg/dL 14 LDL Cholesterol 59 mg/dL 15 Liver Function 09/17/2018 [facility] Total Protein 6.5 g/dL Normal 6.4-8.9 Panel [address] [place] [address] [phone] Albumin 3.8 g/dL Normal 3.2-5.2 Globulin 2.7 g/dL Normal 2-4 Albumin/Globulin Ratio 1.4 Normal 1-3 Total Bilirubin 0.50 mg/dL Normal 0.2-1.0 Direct Bilirubin 0.10 mg/dL Normal 0.03-0.18 Indirect Bilirubin 0.4 mg/dL Normal 0.3-1.0 Alkaline Phosphatase 91 U/L Normal 34-104 Alt 14 U/L Normal 7-52 Ast 14 U/L Normal 13-39 Protein 09/17/2018 [facility] Total 6.5 g/dL 6.3 - Electrophoresis [address] Protein(Pep) 7.9 [place] [address] [phone] Albumin 3.0 g/dL Abnormal 3.4-4.7 Alpha-1 Globulin 0.3 g/dL 0.1-0.3 Alpha-2 Globulin 1.2 g/dL Abnormal 0.6-1.0 Beta Globulin 1.2 g/dL 0.7-1.2 Gamma Globulin 0.9 g/dL 0.6-1.6 Albumin/Globulin Ratio 0.85 Impression See Comment 16 Laboratory test 09/17/2018 [facility] Folic Acid 11.94 ng/mL >3.[address] (Folate) [place] [address] [phone] Vitamin B12 398 pg/mL Normal 180-914 18 Lyme Screen W/ Reflex To WB Negative Negative 19 Methylmalonic Acid Mma 0.20 nmol/mL <=0.40 20 Comp Metabolic 08/17/2018 [facility] Sodium 138 mmol/L Normal 135-[address] [place] [address] [phone] Potassium 4.5 mmol/L Normal 3.5-5.0 Chloride 103 [...] Egfr Non- 83.5 >60 Egfr 101.0 >60 21 Lipid Profile 08/17/2018 [facility] Triglycerides 180 mg/dL 22 (Trig/Chol/HDL) [address] [place] [address] [phone] Cholesterol 209 mg/dL 23 HDL Cholesterol 42.0 mg/dL 24 LDL Cholesterol 131 mg/dL 25 Liver 08/17/2018 [facility] Direct Bilirubin 0.00 Low 0.03- 0.[address] mg/[place] [address] [phone] Lipid Panel 08/17/2018 [facility] Creatine 172 U/L Normal 10- 223 - JFM [address] Kinase(CK) [place] [address] [phone] Lipid 08/02/2018 [facility] Triglycerides 208 [address] mg/dL (Trig/Chol/[place] [address] DL) [phone] Cholesterol 200 mg/dL 27 HDL Cholesterol 38.1 mg/dL 28 LDL Cholesterol 120 mg/dL 29 Comp Metabolic 08/02/2018 [facility] Sodium 136 mmol/L Normal 135-[address] [place] [address] [phone] Potassium 4.4 mmol/L Normal 3.5-5.0 Chloride 103 [...] Egfr 89.4 >60 30 Laboratory test 08/02/2018 [facility] Hemoglobin A1c 9.0 % High 4.0-5.6 [address] (Glyco HGB) [place] [address] [phone] Laboratory test 06/21/2018 [facility] TSH (Thyroid 2.14 Normal 0.34-5.[address] Stim Horm) mcIU/[place] [address] [phone] Comp Metabolic 06/21/2018 [facility] Sodium 137 Normal 135- [address] mmol/[place] [address] [phone] Potassium 4.2 mmol/L Normal 3.5-5.0 Chloride 101 [...] Egfr 111.5 >60 32 Laboratory test 06/21/2018 [facility] C-Peptide 2.2 ng/mL 1.1 - 4.4 33 finding [address] [place] [address] [phone] Lipid Profile 06/21/2018 [facility] Triglycerides 186 mg/dL 34 (Trig/Chol/HDL) [address] [place] [address] [phone] Cholesterol 211 mg/dL 35 HDL Cholesterol 44.1 mg/dL 36 LDL Cholesterol 130 mg/dL 37 Laboratory test finding 06/21/2018 [facility] Cortisol 5.08 g/ dL [address] [place] [address] [phone] 1 Therapeutic target for the treatment of diabetes mellitus patients is <7% HBA1C, and in selective patients <6.0%. Please refer to [employer] diabetic care guidelines for further [...] [address]: Joshua Arita MD Acct: [id number] Unit: [id number] AGE: 38 Location: ENDO Re10/09/18 SEX: F Status: DEP REF SPEC: [id number] LAMBERTO: 10/09/18- SUBM DR: Joshua Arita MD REQ: [id number] RECD: 10/09/18105 STATUS: MARYLOU LANGFORD DR: Tuyet Alvarado [employer] ENGINEER _ ORDERED: LEVEL 4 FINAL DIAGNOSIS Stomach, [...] 1120 END OF REPORT DEPARTMENT OF PATHOLOGY, [address] [place] [address] Reese Fu M.D. Director EUGENIE # [id number] 4 SEE RESULT BELOW Name: MARYA PINA : [address]: Joshua Arita MD Acct: [id number] Unit: [id number] AGE: 38 Location: ENDO Re10/09/18 SEX: F Status: DEP REF SPEC: [id number] LAMBERTO: 10/09/18-[address] [facility] [address]: Joshua Arita MD REQ: [id number] RECD: 10/09/18 STATUS: COMP TAMMIEHR DR: Tuyet Alvarado [employer] ENGINEER _ SOURCE: GAS ANTRUM SPDESC: ORDERED: Clotest Procedure Result Reported Site Clotest Final 10/10/18- 0846 ML Clotest Negative * ML - Main Lab . END OF REPORT DEPARTMENT OF PATHOLOGY, [address] [place] [address] Reese Fu M.D. Director [facility] # [id number] 5 Permit Review Assistant: [id number] Permit Review Assistant: [id number] Permit Review Assistant: [id number] Standard intensity warfarin therapeutic range: 2.0-3.0 High intensity warfarin therapeutic range: 2.5-3.5 9 Permit Review Assistant: [id number] 10 Because ethnic data is not always [...] 5 Kidney failure <15 (or dialysis) 11 <5.0 Negative 5.0 - 25.0 Indeterminate (Repeat testing recommended after 72 hours) >25.0 Positive Perimenopausal women can display HCG levels of up to 20 mIU/mL 12 Desirable: <150 Borderline High: 150-199 High: 200-499 Very High: >500 13 Desirable: <200 Borderline High: 200-239 High: >239 14 Low: <40 Desirable: 40-60 High: >60 15 Desirable: <100 Near Optimal: 100-129 Borderline High: 130-159 High: 160-189 Very High: >189 16 RESULT: No apparent monoclonal protein on serum electrophoresis. Test Performed by: [facility] - [facility] [address] [place] [address] 17 accidently received on batch 18. but specimen was not sent with batch 18. 18 Normal Range 180 to 914 Indeterminate Range 145 to 180 Deficient Range <145 19 accidently received on batch 18. but specimen was not sent with batch 18. 20 ADDITIONAL INFORMATION This test was developed and its performance characteristics determined by [facility] in a manner consistent with CLIA requirements. This test has not been cleared or approved by the U.S. Food and Drug Administration. Test Performed by: [facility] - [facility] [address] [place] [address] 21 Because ethnic data is not always [...] 5 Kidney failure <15 (or dialysis) 22 Desirable: <150 Borderline High: 150-199 High: 200-499 Very High: >500 23 Desirable: <200 Borderline High: 200-239 High: >239 24 Low: <40 Desirable: 40-60 High: >60 25 Desirable: <100 Near Optimal: 100-129 Borderline High: 130-159 High: 160-189 Very High: >189 26 Desirable: <150 Borderline High: 150-199 High: [...] in selective patients <6.0%. Please refer to [employer] diabetic care guidelines for further [...] <15 (or dialysis) 33 Test Performed by: [facility] [address] [place] [address] 34 Desirable: <150 Borderline High: 150-199 High: 200-499 Very High: >500 35 Desirable: <200 Borderline High: 200-239 High: >239 36 Low: <40 Desirable: 40-60 High: >60 37 Desirable: <100 Near Optimal: 100-129 Borderline High: 130-159 High: 160-189 Very High: >189 38 AM 8.7-22.4 PM <10 Procedures Date Code Description Status 11/22/2018 74511 EKG Tracing & Interpretation Completed 11/21/2018 04343 Inject Tendon Sheath Or Ligament Aponeurosis Eg Completed Plantar Fascia 10/17/2018 52981 Inject/Drain Joint/Bursa Major W/O US Completed 10/09/2018 58651 Endoscopy Upper GI Biopsy Completed 08/10/2017 280201072 Diabetic Retinal Eye Exam Completed 04/25/2016 480030474 Diabetic Retinal Eye Exam Completed 01/21/2015 492765528 Diabetic Retinal Eye Exam Completed Medical Devices Description No Information Available Encounters Type Date Location Provider Dx Diagnosis Office Visit 10/24/2018 Orthopedic Nhi Hamilton, M25.562 Pain in left knee 9:45a [facility] [place] M25.561 Pain in right knee M25.462 Effusion, left knee M25.461 Effusion, right knee E66.01 Morbid (severe) obesity due to excess calories M17.0 Bilateral primary osteoarthritis of knee M23.8x2 Other internal derangements of left knee Office Visit 10/23/2018 2:30p [facility] Felice Oconnell E66.01 Morbid ( severe) Services [...] to excess calories Office Visit 10/10/2018 10:00a [facility] Internal Tuyet Alvarado, M25.562 Pain in left Medicine - Ccm[facility] N.P. knee Office Visit 09/21/2018 9:15a Pulmonology And Noemy Graeme, R06.83 [facility] MD Allred J45.909 Unspecified asthma, uncomplicated F17.210 Nicotine dependence, cigarettes, uncomplicated Office Visit 09/17/2018 Damon Oconnell E11.42 Type 2 diabetes 10:00a Neurologic Bereket Billingsley mellitus with [facility] diabetic polyneuropathy G43.009 Migraine w/o aura, not intractable, w/o status migrainosus Office Visit 09/13/2018 [facility] Gastroenterology Joshua JanaJessica E66.01 Morbid 2:45p MD Juan J (severe) obesity due to excess calories E11.65 Type 2 diabetes mellitus with hyperglycemia Office 08/17/2018 [facility] Internal Tuyet E78.00 Pure hypercholesterolemia, Visit 10:20a Medicine - Varn, N.P. unspecified [facility]cmob E11.65 Type 2 diabetes mellitus with hyperglycemia M25.569 Pain in unspecified knee M54.5 Low back pain J45.41 Moderate persistent asthma with (acute) exacerbation F17.210 Nicotine dependence, cigarettes, uncomplicated Office Visit 08/02/2018 8:40a [place] [facility] Luis Murdock, Z79.4 [facility] (current) use of insulin E11.65 Type 2 diabetes mellitus with hyperglycemia Office Visit 06/21/2018 11:00a [facility] Luis Murdock, E11.40 Type 2 diabetes Endocrinology of MD mellitus with [facility] diabetic neuropathy, unsp E11.65 Type 2 diabetes mellitus with hyperglycemia E04.9 Nontoxic goiter, unspecified Assessments Date Code Description Provider 11/22/2018 Z01.818 Encounter for other preprocedural Tuyet [...] Encounter for screening for infections Tuyet Alvarado N.Brie. with a predominantly sexual mode of transmission 11/21/2018 G56.03 Carpal tunnel syndrome, bilateral upper [...] cigarettes, Tuyet Varn, N.P. uncomplicated 08/02/2018 Z79.4 [facility] (current) use of insulin Luis Murdock MD 08/02/2018 E11.65 Type 2 diabetes mellitus with Luis Murdock MD hyperglycemia 06/21/2018 E11.40 Type 2 diabetes mellitus with diabetic Luis Murdock MD neuropathy, unspecifi 06/21/2018 E11.65 Type 2 diabetes mellitus with Luis Murdock MD hyperglycemia 06/21/2018 E04.9 Nontoxic goiter, unspecified Luis Murdock MD Plan of Treatment Future Appointment(s):02/20/2019 9:00 am - Luis Murdock MD at [place] [facility]12/18/2018 7:30 am - Nhi Hamilton M.D. at [facility]12/12/2018 9:15 am - Nhi Hamilton M.D. at [facility]01/29/2019 11:45 am - Felice Billingsley M.D. at [place] [facility]11/29/2018 10:30 am - Yennifer Painting NP at [facility]02/21/2019 11:00 am - Tuyet Alvarado N.P. at [facility] Internal Medicine - [facility]11/22/2018 - Tuyet Alvarado N.P.Z01.818 Encounter for other preprocedural examinationComments:I am ordering some routine preoperative lab work. I also ordered a chest Xray. The office will contact you with your results. You may take all of your usual medications the morning of your surgery, unless your surgeon tells you otherwise. Please stop taking Aspirin, or Aspirin like products and supplements for 1 week prior to your surgery.S83.242A Other tear of medial meniscus, current injury, left knee, initial rmayqjfqzM60.42 Type 2 diabetes mellitus with diabetic dejniajffssgdmI67.43 Body mass index (BMI) 50.0-59.9, jsuroD56.5 Hyperlipidemia , wqztilpxkpjD58.40 Moderate persistent asthma, krgpsxalrpxnoG38.31 Abnormal electrocardiogram [ECG] [EKG]Comments:To further evaluate your abnormal EKG I am referring you to a orthotics technician, Dr Funez.Referral:Ronald Funez DO, FACC, Cardiovsclr OwamplcF46.3 Encounter for screening for infections with a predominantly sexual mode of transmission Functional Status Description No Information Available Mental Status Description No Information Available Referrals Refer to Reason for Referral Status Appt Date Ronald Funez DO, FACC Patient is a 38 year old morbidly obese [place] woman with diabetes, hypertension, and asthma. Her EKG is abnormal. I have referred her for cardiac evaluation. Thank you for seeing this complex patient. [address] [place] [address] [phone] Irving Quiroga MD diabetic neuropathy [address] [place] [address] [phone] Yennifer Naylor M.D. bilateral CTS [address] [place] [address] [phone] Nhi Hamilton MD Patient with bilateral knee pain, particularly Sent 2018 left, referred for evaluation and treatment. Thank you for seeing this very pleasant patient. [address] [place] [id number] [phone]
--- OUTSIDE RECORDS SUMMARY | 2018-12-17 14:12 | XMS REPORT | Continuity of Care Document ---
:1980 External Reference #:[id number] Author Name SHAMIKA Villarreal (transmitted by agent of provider Bety Rodriguez) Address [address] [place] [address] Care Team Providers Name Role Phone Galo Fritz MD - Ophthalmology Care Team Information Carpenter Form Ronald Nunez MD - Surgery Care Team Information Carpenter Form [phone] Karla Rich MD - Internal Care Team Information Carpenter Form [phone] [facility] Lili Herrera FNP-e - Family Care Team Information Carpenter Form [facility] - Care Team Information Carpenter Form [phone] Director Of Automation Yennifer Naylor M.D. - Surgery of Care Team Information Carpenter Form the Hand Problems Active Problems Provider Date [...] (more than 10 cigarettes/day) Smoking Status Reviewed: 11/21/18 Heavy tobacco smoker (more than 10 cigarettes/day) Exercise Type/Frequency Exercises sporadically Allergies, Adverse Reactions, Alerts Active Allergies Reaction Severity Comments Date Hydrocodone Pt states she itch all over. 05/21/2012 Latex itchy and rash 08/17/2015 Inactive Allergies NKDA 05/12/2011 Medications Active Medications SIG Qnty Indications Ordering Date Provider Vitamin D Take 1 Tablet By 4caps [place] (Ergocalciferol) Mouth Once A Week Varn, N.P. 9 22563Gamu For 8 Weeks Capsules Tylenol With Codeine #3 1 tablet by mouth 21tabs M25.562 [place] every 8 hours as Varn, N.P. 9 300-30mg Tablets needed cough Topiramate 1 po qhs 30tabs G43.009 [facility]. 100mg Tablets Bereket Billingsley 9 Lyrica take two caps by 120caps G62.9 [facility]. 50mg Capsules mouth twice a Bereket Billingsley 9 day. brand name necessary. Atorvastatin Calcium take 1 tablet by 90tabs E78.00 [place] 20mg mouth at bedtime Varn, N.P. 9 Tablets Ibuprofen 1 by mouth every 90tabs M54.5 [place] 600mg Tablets 6 hours as needed Varn, N.P. 9 for pain Advair Diskus inhale 1 dose by 60units J45.41 [place] 500-50mcg/Dose mouth twice daily Varn, N.P. 9 Aerosol (not taking) Humulin N 30 units QHS or 20ml E11.65 [facility], 100Unit/ML Suspension as directed, ANASTASIA Blake 60 Humulin R 30 units tid-ac 50ml [facility], 100Unit/ML Solution or as directed, MD Blake MDD 180 Onetouch Verio test four times 150units [place], Strips daily and as MD Blake needed Onetouch Ultrasoft use to test blood 300units [facility], Lancets glucose three MD Blake Misc times a day and as needed Ozempic Hold On File, 1mg 3ml E11.65 [place], 1mg/Dose Solution injection once MD Blake Pen-Inject weekly, hold on file for second month Insulin Syringe/0.5ML/30G 4 times daily for 150units E11.40 [place], X 1/2" insulin MD Blake 30G X 1/2" 0.5 [facility] Gl[facility] test blood sugars 1units E11.65 Tuyet System once fasting and Varn, N.P. 9 W/Device Kit 2 hours after dinner meal Blood Glucose Test test blood sugar 100units E11.65 [place] Strips fasting in in the Varn, N.P. [...] Monica, 150mg Tablets By Mouth Twice A SHELL MOLDER 8 Day Hydrochlorothiazide Take One Tablet 30tabs Tuyet 25mg By Mouth Every Varn, N.P. 8 Tablets Day Glucose Meter Test Strips for use 3-4 times 100units [place] Advanced daily Varn, N.P. 8 Strips Nebulizer use three times a 1units [place] Kit/Tubing/Mouthpiece day as needed Varn, N.P. 8 Kit Fluoxetine HCL Take One Capsule 30caps F43.23 [place] 20mg Capsules By Mouth Every Varn, N.P. 8 Day Montelukast Sodium Take One Tablet 30tabs J45.41 [place] 10mg Tablets By Mouth Every Varn, N.P. 7 Day Freestyle Lancets test up to 2 300units [place] Misc times a day or as Varn, N.P. 7 needed Metformin HCL ER Take 4 Tablets By 120tabs E11.65 [place] 500mg Tablets Mouth With Dinner Varn, N.P. 7 ER 24HR Fluconazole Take 1 Tablet By 2tabs [place] 150mg Tablets Mouth Then May Varn, N.P. 7 Repeat In 3 Days as Needed Simethicone 1 by mouth after 30caps R19.7 [place] 180mg Capsules each meal as Varn, N.P. 7 needed Ventolin HFA Inhale Two Puffs 18units [place] 108(90Base) By Mouth Four Varn, N.P. 6 mcg/Act Aerosol Times A Day as Needed Freestyle Lite Blood check fingerstick 1units E11.65 [place] Glucose Monitoring System three times daily Varn, N.P. 6 or as needed, DX Device - E11.65 Nebulizer use three times a 1units J20.9 [place] Device day as needed Varn, N.P. 6 Ipratropium inhale the 180units J20.9 [place]/Albuterol Sulfate contents of one Varn, N.P. 6 vial via 0.5-2.5(3)mg/3ML Solution nebulizer three times a day as needed for asthma Senna Laxative 1 tab by mouth 15tabs K59.00 Noemy 25mg Tablets 1-2 times as MD Graeme 6 needed Compression Stockings knee high 2units I80.02 [place] Misc stockings 20 - 30 Varn, N.P. 6 mm Cetirizine HCL 1 by mouth every 30tabs J30.9 [place] 10mg Tablets day Varn, N.P. 6 Ramipril Take One Capsule 30caps I10 [place] 5mg Capsules By Mouth Every Varn, N.P. 5 Day Fluticasone Propionate [place] One [place] 16units [place] In Each Nostril Varn, N.P. 4 50mcg/Act [...] PM, MDD 08/07/2018 100 (70-30)100Unit/ML Supn Pen [place] 1/2" use 1 pen needle 100units E11.65 [...] Qnty Indications Ordering Provider Date Depomedrol 40MG Nhi Hamilton M.D. 10/17/2018 Injection Records Fee Tuyet Alvarado NElliott. 08/29/2018 Injection Immunizations CPT Code Status Date Vaccine Lot # [id number] Given 10/04/2016 Tdap - Tetanus/Diptheria/Acellular Pertussis [id number] Given 01/20/2015 Flu Vaccine Split Virus Preservative Free For [id number] Indiv [id number] Older [id number] Given 05/21/2012 Pneumonia Vaccine [id number] Vital Signs Date Vital Result Comment 11/21/2018 1:30pm Height 63.25 inches 5'3.25" Weight 298.00 lb Heart Rate 76 /min BP Systolic 128 mmHg BP Diastolic 68 mmHg BMI (Body Mass Index) 52.4 kg/m2 11/20/2018 8:49am Height 62.75 inches 5'2.75" Weight 298.00 lb w/ shoes Heart Rate 70 /min BP Systolic Sitting 116 mmHg BP Diastolic Sitting 76 mmHg BMI (Body Mass Index) 53.2 kg/m2 Results Test Date Facility Test Result H/L Range Note Laboratory test 11/20/2018 [facility] Hemoglobin A1c 7.3 % High 4.0-5.[address] (Glyco HGB) [place] [address] [phone] Comp Metabolic 11/20/2018 [facility] Sodium 139 mmol/L Normal 135-[address] [place] [address] [phone] Potassium 4.1 mmol/L Normal 3.5-5.0 Chloride 106 [...] Egfr 82.2 >60 2 Laboratory test 10/09/2018 [facility] Surgical SEE RESULT [address] [place] [address] [phone] Laboratory test 10/09/2018 [facility] Clotest SEE RESULT [address] [place] [address] [phone] Laboratory test 10/09/2018 [facility] Point of Care 119 mg/dL High 70-10 [address] Glucose 0 [place] [address] [phone] Inr/Protime 09/30/2018 [facility] Inr 0.97 Normal 0.82- [address] 1.09 [place] [address] [phone] Laboratory test 09/30/2018 [facility] C Reactive 13.99 mg/L High <8.[address] [place] [address] [phone] HCG < 0.60 mIU/mL 7 Laboratory test 09/30/2018 [facility] Point of 93 mg/dL Normal 70-100 [address] [place] [address] [phone] Laboratory test 09/30/2018 [facility] Point of 60 mg/dL Low 70 -100 [address] [place] [address] [phone] Comp Metabolic 09/30/2018 [facility] Sodium 139 mmol/L Normal 135-[address] [place] [address] [phone] Potassium 3.9 mmol/L Normal 3.5-5.0 Chloride 104 [...] Non- 68.0 >60 Egfr 82.2 >60 10 CBC Auto 09/30/2018 [facility] White Blood 15.1 10^3/uL High 3.5-10.[address] [place] [address] [phone] Red Blood Count 5.13 10^6/uL High 3.70-4.87 [...] Blood Cells % 0.0 Laboratory test 09/30/2018 [facility] Point of Care 60 mg/dL Low 70-100 [address] [place] [address] [phone] Lipid Profile 09/17/2018 [facility] Triglycerides 173 mg/dL 12 (Trig/Chol/HDL) [address] [place] [address] [phone] Cholesterol 128 mg/dL 13 HDL Cholesterol 34.8 mg/dL 14 LDL Cholesterol 59 mg/dL 15 Protein 09/17/2018 [facility] Total 6.5 g/dL 6.3 - Electrophoresis [address] Protein(Pep) 7.9 [place] [address] [phone] Albumin 3.0 g/dL Abnormal 3.4-4.7 Alpha-1 Globulin 0.3 g/dL 0.1-0.3 Alpha-2 Globulin 1.2 g/dL Abnormal 0.6-1.0 Beta Globulin 1.2 g/dL 0.7-1.2 Gamma Globulin 0.9 g/dL 0.6-1.6 Albumin/Globulin Ratio 0.85 Impression See Comment 16 Laboratory test 09/17/2018 [facility] Folic Acid 11.94 ng/mL >3.99 [address] (Folate) [place] [address] [phone] Vitamin B12 398 pg/mL Normal 180-914 18 Lyme Screen W/ Reflex To WB Negative Negative 19 Methylmalonic Acid Mma 0.20 nmol/mL <=0.40 20 Liver Function 09/17/2018 [facility] Total Protein 6.5 g/dL Normal 6.4-8.[address] [place] [address] [phone] Albumin 3.8 g/dL Normal 3.2-5.2 Globulin 2.7 g/dL Normal 2-4 Albumin/Globulin Ratio 1.4 Normal 1-3 Total Bilirubin 0.50 mg/dL Normal 0.2-1.0 Direct Bilirubin 0.10 mg/dL Normal 0.03-0.18 Indirect Bilirubin 0.4 mg/dL Normal 0.3-1.0 Alkaline Phosphatase 91 U/L Normal 34-104 Alt 14 U/L Normal 7-52 Ast 14 U/L Normal 13-39 Lipid Panel - 08/17/2018 [facility] Creatine 172 U/L Normal 10 -[address] Kinase(CK) [place] [address] [phone] Comp Metabolic 08/17/2018 [facility] Sodium 138 Normal 135- [address] mmol/[place] [address] [phone] Potassium 4.5 mmol/L Normal 3.5-5.0 Chloride 103 [...] Egfr 101.0 >60 21 Lipid Profile 08/17/2018 [facility] Triglycerides 180 mg/dL 22 (Trig/Chol/HDL) [address] [place] [address] [phone] Cholesterol 209 mg/dL 23 HDL Cholesterol 42.0 mg/dL 24 LDL Cholesterol 131 mg/dL 25 Liver 08/17/2018 [facility] Direct Bilirubin 0.00 Low 0.03- 0.[address] mg/[place] [address] [phone] Lipid Profile 08/02/2018 [facility] Triglycerides 208 mg/dL 26 (Trig/Chol/HD [address] L) [place] [address] [phone] Cholesterol 200 mg/dL 27 HDL Cholesterol 38.1 mg/dL 28 LDL Cholesterol 120 mg/dL 29 Comp Metabolic 08/02/2018 [facility] Sodium 136 mmol/L Normal 135-145 [place] [address] [phone] Potassium 4.4 mmol/L Normal 3.5-5.0 Chloride 103 [...] Egfr 89.4 >60 30 Laboratory test 08/02/2018 [facility] Hemoglobin A1c 9.0 % High 4.0-5.[address] (Glyco HGB) [place] [address] [phone] Laboratory test 06/21/2018 [facility] TSH (Thyroid 2.14 Normal 0.34-5.[address] Stim Horm) mcIU/mL [place], [place] [address] [phone] Comp Metabolic 06/21/2018 [facility] Sodium 137 Normal 135- 145 Panel 101 mmol/[place] [address] [phone] Potassium 4.2 mmol/L Normal 3.5-5.0 Chloride 101 [...] Egfr 111.5 >60 32 Laboratory test 06/21/2018 [facility] C-Peptide 2.2 ng/mL 1.1 - 4.4 33 finding [address] [place] [address] [phone] Lipid Profile 06/21/2018 [facility] Triglycerides 186 mg/dL 34 (Trig/Chol/HDL) [address] [place] [address] [phone] Cholesterol 211 mg/dL 35 HDL Cholesterol 44.1 mg/dL 36 LDL Cholesterol 130 mg/dL 37 Laboratory test finding 06/21/2018 [facility] Cortisol 5.08 g/ dL 38 [address] [place] [address] [phone] 1 Therapeutic target for the treatment of diabetes mellitus patients is <7% HBA1C, and in selective patients <6.0%. Please refer to [place] [employer] Association diabetic care guidelines for further [...] (or dialysis) 3 SEE RESULT BELOW Name: ANN PINAYFN Bates : [address]: Joshua Arita MD Acct: [id number] Unit: [id number] AGE: 38 Location: ENDO Re10/09/18 SEX: F Status: DEP REF SPEC: [id number] LAMBERTO: 10/09/18- SUBM DR: Joshua Arita MD REQ: [id number] RECD: 10/09/181054 STATUS: MARYLOU LANGFORD DR: Tuyet Alvarado SHELL MOLDER _ ORDERED: LEVEL 4 FINAL DIAGNOSIS Stomach, [...] 1120 END OF REPORT DEPARTMENT OF PATHOLOGY, [address] [place] [address] Reese Fu M.D. Director [facility] # [id number] 4 SEE RESULT BELOW Name: MARYA PINA : [address]: Joshua Arita MD Acct: [id number] Unit: [id number] AGE: 38 Location: ENDO Re10/09/18 SEX: F Status: DEP REF SPEC: [id number] LAMBERTO: 10/09/[address]: Joshua Arita MD REQ: [id number] RECD: 10/09/18 STATUS: COMP OTHR DR: Tuyet Alvarado SHELL MOLDER _ SOURCE: GAS ANTRUM SPDESC: ORDERED: Clotest Procedure Result Reported Site Clotest Final 10/10/18- 845 ML Clotest Negative * ML - Main Lab . END OF REPORT DEPARTMENT OF PATHOLOGY, [address] [place] [address] Reese Fu M.D. Director [facility] # [id number] 5 Tree Farmer: [id number] 6 Standard intensity warfarin therapeutic range: 2.0-3.0 High intensity warfarin therapeutic range: 2.5-3.5 7 <5.0 Negative 5.0 - 25.0 Indeterminate (Repeat testing recommended after 72 hours) >25.0 Positive Perimenopausal women can display HCG levels of up to 20 mIU/mL 8 Tree Farmer: [id number] 9 Tree Farmer: [id number] 10 Because ethnic data is not always [...] 5 Kidney failure <15 (or dialysis) 11 Tree Farmer: [id number] 12 Desirable: <150 Borderline High: 150-199 High: 200-499 Very High: >500 13 Desirable: <200 Borderline High: 200-239 High: >239 14 Low: <40 Desirable: 40-60 High: >60 15 Desirable: <100 Near Optimal: 100-129 Borderline High: 130-159 High: 160-189 Very High: >189 16 RESULT: No apparent monoclonal protein on serum electrophoresis. Test Performed by: [facility] [address] [place] [address] 17 accidently received on batch 18. but specimen was not sent with batch 18. 18 Normal Range 180 to 914 Indeterminate Range 145 to 180 Deficient Range <145 19 accidently received on batch 18. but specimen was not sent with batch 18. 20 ADDITIONAL INFORMATION This test was developed and its performance characteristics determined by [facility] in a manner consistent with CLIA requirements. This test has not been cleared or approved by the U.S. Food and Drug Administration. Test Performed by: [address] [address] 21 Because ethnic data is not always [...] in selective patients <6.0%. Please refer to [place] [employer] diabetic care guidelines for further [...] <15 (or dialysis) 33 Test Performed by: [facility] [address] [place] [address] 34 Desirable: <150 Borderline High: 150-199 High: 200-499 Very High: >500 35 Desirable: <200 Borderline High: 200-239 High: >239 36 Low: <40 Desirable: 40-60 High: >60 37 Desirable: <100 Near Optimal: 100-129 Borderline High: 130-159 High: 160-189 Very High: >189 38 AM 8.7-22.4 PM <10 Procedures Date Code Description Status 11/21/2018 14825 Inject Tendon Sheath Or Ligament Aponeurosis Eg Completed Plantar Fascia 10/17/2018 80143 Inject/Drain Joint/Bursa Major W/O US Completed 10/09/2018 02631 Endoscopy Upper GI Biopsy Completed 08/10/2017 787972879 Diabetic Retinal Eye Exam Completed 04/25/2016 525033415 Diabetic Retinal Eye Exam Completed 01/21/2015 998578102 Diabetic Retinal Eye Exam Completed Medical Devices Description No Information Available Encounters Type Date Location Provider Dx Diagnosis Office Visit 10/24/2018 Orthopedic Nhi Hamilton, M25.562 Pain in left knee 9:45a Services Of LarryAJessica MStefanie. M25.561 Pain in right knee M25.462 Effusion, left knee M25.461 Effusion, right knee E66.01 Morbid (severe) obesity due to excess calories M17.0 Bilateral primary osteoarthritis of knee M23.8x2 Other internal derangements of left knee Office Visit 10/23/2018 2:30p Damon Oconnell E66.01 Morbid ( severe) Services Of Chalino Billingsley M.D. obesity due to excess calories E11.42 Type 2 diabetes mellitus with diabetic polyneuropathy G43.009 Migraine w/o aura, not intractable, w/o status migrainosus Office Visit 10/17/2018 11:15a Orthopedic Services Nhi Alfonso, M25.562 Pain in left Of C.M.A. M.D. knee M25.462 Effusion, left knee M17.12 Unilateral primary osteoarthritis, left knee Z68.43 Body mass index (BMI) 50.0-59.9, adult E66.01 Morbid (severe) obesity due to excess calories Office Visit 10/10/2018 10:00a [facility] Internal Tuyet Castrejoncarlin, M25.562 Pain in left Medicine - Ccmob N.P. knee Office Visit 09/21/2018 9:15a Pulmonology And Noemy Bedolla, R06.83 Snoring Sleep Services Of MD Allred J45.909 Unspecified asthma, uncomplicated F17.210 Nicotine dependence, cigarettes, uncomplicated Office Visit 09/17/2018 Damon Oconnell E11.42 Type 2 diabetes 10:00a Neurologic Bereket Billingsley mellitus with Services Of Chalino diabetic polyneuropathy G43.009 Migraine w/o aura, not intractable, w/o status migrainosus Office Visit 09/13/2018 [facility] Gastroenterology Joshua TJessica E66.01 Morbid 2:45p MD Juan J (severe) obesity due to excess calories E11.65 Type 2 diabetes mellitus with hyperglycemia Office 08/17/2018 [facility] Internal Tuyet E78.00 Pure hypercholesterolemia, Visit 10:20a Medicine - Varn, N.P. unspecified Ccmob E11.65 Type 2 diabetes mellitus with hyperglycemia M25.569 Pain in unspecified knee M54.5 Low back pain J45.41 Moderate persistent asthma with (acute) exacerbation F17.210 Nicotine dependence, cigarettes, uncomplicated Office Visit 08/02/2018 8:40a [facility] Luis Murdock, Z79.4 [facility] (current) use of insulin E11.65 Type 2 diabetes mellitus with hyperglycemia Office Visit 06/21/2018 11:00a [facility] Luis Murdock, E11.40 Type 2 diabetes Endocrinology of MD mellitus with [facility] diabetic neuropathy, unsp E11.65 Type 2 diabetes mellitus with hyperglycemia E04.9 Nontoxic goiter, unspecified Assessments Date Code Description Provider 11/21/2018 G56.03 Carpal tunnel syndrome, bilateral upper [...] 10/24/2018 M25.562 Pain in left knee Nhi Ferreirake, M.D. 10/24/2018 M25.561 Pain in right knee Nhi Alfonso, M.D. 10/24/2018 M25.462 Effusion, left knee Nhi Alfonso, M.D. 10/24/2018 M25.461 Effusion, left knee Nhi Alfonso, M.D. 10/24/2018 E66.01 Morbid (severe) obesity due to excess Nhi Hamilton M.D. calories 10/24/2018 M17.0 Bilateral primary osteoarthritis of knee Nhi Alfonso, M.D. 10/24/2018 M23.8x2 Other internal derangements of left knee NhiParvin Espino.DJessica 10/23/2018 E66.01 Morbid (severe) obesity due to excess Felice Billingsley M.D. calories 10/23/2018 E11.42 Type 2 diabetes mellitus with diabetic Felice Billingsley M.D. polyneuropathy 10/23/2018 G43.009 Migraine without aura, not intractable, Felice Billingsley M.D. without status migrainosus 10/17/2018 M25.562 Pain in left knee Nhikatherine Hamilton M.D. 10/17/2018 M25.462 Effusion, left knee NhiParvin Espino.DJessica 10/17/2018 M17.12 Unilateral primary osteoarthritis, left NhiParvin Espino.D. knee 10/17/2018 Z68.43 Body mass index (BMI) [...] 9:00 am - Luis Murdock MD at [facility]11/22/2018 1:30 pm - Alfonso Torres MD at [facility] [address]11/22/2018 10:40 am - Tuyet Alvarado N.P. at [facility] Internal Medicine - [facility]12/18/2018 7:30 am - Nhi Hamilton M.D. at [facility] [address].12/12/2018 9:15 am - Nhi Hamilton M.D. at [facility]01/29/2019 11:45 am - Felice Billingsley M.D. at [facility]11/29/2018 10:30 am - Yennifer Painting NP at [facility]02/21/2019 11:00 am - Tuyet Alvarado N.PJessica at [facility] Internal Medicine - [facility]11/21/2018 - Gabrielle Main [facility]-CG56.03 Carpal tunnel syndrome, bilateral upper lrmqhR47.311 Trigger thumb, right thumbFollow up:Follow up: 1 week Functional Status Description No Information Available Mental Status Description No Information Available Referrals Refer to Dr Reason for Referral Status Appt Date Irvnig Quiroga MD diabetic neuropathy Sent [address] [place] [address] [phone] Yennifer Naylor M.D. bilateral CTS Sent [address] [place] [address] [phone] Nhi Hamilton MD Patient with bilateral knee pain, particularly Sent 2018 left, referred for evaluation and treatment. Thank you for seeing this very pleasant patient. [address] [place] [address] [phone]
--- OUTSIDE RECORDS SUMMARY | 2018-12-17 14:12 | XMS REPORT | Continuity of Care Document ---
:1980 External Reference #:[id number] Author Name ETHAN Harris (transmitted by agent of provider Jenniffer Washington) Address [address] [place] [address] Care Team Providers Name Role Phone Galo Fritz MD - Ophthalmology Care Team Information Emotional Support Teacher [phone] Ronald Nunez MD - Surgery Care Team Information Emotional Support Teacher [phone] Karla Rich MD - Internal Care Team Information Emotional Support Teacher Medicine Lili Herrera FNP-Cde - Family Care Team Information Emotional Support Teacher [facility] - Care Team Information Emotional Support Teacher [employer]assemblies Wirer Yennifer Naylor M.D. - Surgery of Care Team Information Emotional Support Teacher the Hand Problems Active Problems Provider Date [...] (more than 10 cigarettes/day) Smoking Status Reviewed: 11/28/18 Heavy tobacco smoker (more than 10 cigarettes/day) Exercise Type/Frequency Exercises sporadically Allergies, Adverse Reactions, Alerts Active Allergies Reaction Severity Comments Date Hydrocodone Pt states she itch all over. 05/21/2012 Latex itchy and rash 08/17/2015 Inactive Allergies NKDA 05/12/2011 Medications Active Medications SIG Qnty Indications Ordering Date Provider Vitamin D Take 1 Tablet By 4caps [place] (Ergocalciferol) Mouth Once A Week Varn, N.P. 9 62620Lihe For 8 Weeks Capsules Tylenol With Codeine #3 1 tablet by mouth 21tabs M25.562 [place] every 8 hours as Varn, N.P. 9 300-30mg Tablets needed cough Topiramate 1 po qhs 30tabs G43.009 [facility]. 100mg Tablets Bereket Billingsley 9 Lyrica take two caps by 120caps G62.9 [facility]. 50mg Capsules mouth twice a Bereket Billingsley 9 day. brand name necessary. Code C Atorvastatin Calcium take 1 tablet by 90tabs E78.00 [place] 20mg mouth at bedtime Varn, N.P. 9 Tablets Ibuprofen 1 by mouth every 90tabs M54.5 [place] 600mg Tablets 6 hours as needed Varn, N.P. 9 for pain Advair Diskus inhale 1 dose by 60units J45.41 [place] 500-50mcg/Dose mouth twice daily Varn, N.P. 9 Aerosol (not taking) Humulin N 30 units QHS or 20ml E11.65 [facility], 100Unit/ML Suspension as directed, MDD 9 60 Humulin R 30 units tid-ac 50ml [facility], 100Unit/ML Solution or as directed, MD Blake MDD 180 Onetouch Verio test four times 150units [facility], Strips daily and as MD Blake needed Onetouch Ultrasoft use to test blood 300units [facility], Lancets glucose three MD Blake Misc times a day and as needed Ozempic Hold On File, 1mg 3ml E11.65 [facility], 1mg/Dose Solution injection once MD Blake Pen-Inject weekly, hold on file for second month Insulin Syringe/0.5ML/30G 4 times daily for 150units E11.40 [facility], X 1/2" insulin MD Blake 30G X 1/2" 0.5 ML [facility] Blood Glucose Monitoring test blood sugars 1units E11.65 S[place]eston System once fasting and Varn, N.P. 9 W/Device Kit 2 hours after dinner meal Blood Glucose Test test blood sugar 100units E11.65 [place] Strips fasting in in the Varn, N.P. 9 morning and 2 hours after dinner meal Lancet Device use when testing 100units E11.65 S[place] [facility] blood gluose Varn, N.P. 9 Pantoprazole Sodium [...] Monica, 150mg Tablets By Mouth Twice A TEST DATA DEVELOPER 8 Day Hydrochlorothiazide Take One Tablet 30tabs [place] 25mg By Mouth Every Varn, N.P. 8 Tablets Day Glucose Meter Test Strips for use 3-4 times 100units Sikeston Advanced daily Varn, N.P. 8 Strips Nebulizer use three times a 1units [place] Kit/Tubing/Mouthpiece day as needed Varn, N.P. 8 Kit Fluoxetine HCL Take One Capsule 30caps F43.23 [place] 20mg Capsules By Mouth Every Varn, N.P. 8 Day Montelukast Sodium Take One Tablet 30tabs J45.41 [place] 10mg Tablets By Mouth Every Varn, N.P. 7 Day Freestyle Lancets test up to 2 300units [place] Misc times a day or as Varn, N.P. 7 needed Metformin HCL ER Take 4 Tablets By 120tabs E11.65 [place] 500mg Tablets Mouth With Dinner Varn, N.P. 7 ER 24HR Fluconazole Take 1 Tablet By 2tabs [place] 150mg Tablets Mouth Then May Varn, N.P. 7 Repeat In 3 Days as Needed Simethicone 1 by mouth after 30caps R19.7 S[place] 180mg Capsules each meal as Varn, N.P. 7 needed Ventolin HFA Inhale Two Puffs 18units [place] 108(90Base) By Mouth Four Varn, N.P. 6 mcg/Act Aerosol Times A Day as Needed Freestyle Lite Blood check fingerstick 1units E11.65 [place] Glucose Monitoring System three times daily Varn, N.P. 6 or as needed, DX Device - E11.65 Nebulizer use three times a 1units J20.9 [place]eston Device day as needed Varn, N.P. 6 Ipratropium inhale the 180units J20.9 S[place]/Albuterol Sulfate contents of one Varn, N.P. 6 vial via 0.5-2.5(3)mg/3ML Solution nebulizer three times a day as needed for asthma Senna Laxative 1 tab by mouth 15tabs K59.00 Noemy 25mg Tablets 1-2 times as MD Graeme 6 needed Compression Stockings knee high 2units I80.02 S[place] Misc stockings 20 - 30 Varn, N.P. 6 mm Cetirizine HCL 1 by mouth every 30tabs J30.9 [place] 10mg Tablets day Varn, N.P. 6 Ramipril Take One Capsule 30caps I10 [place] 5mg Capsules By Mouth Every Varn, N.P. 5 Day Fluticasone Propionate [place] One [place] 16units [place] In Each Nostril Varn, N.P. 4 50mcg/Act Suspension Every Day as Needed Nebulizer J45.909 Cristina Garcia, Compressor/Dualfilter/7' M.D. 3 Tubing/Aerosol T/Mthpiece Kit Methocarbamol 1 by mouth twice Unknown 0000/000 Tablets a day as needed 0 for [...] PM, MDD 08/07/2018 100 (70-30)100Unit/ML Supn Pen [place] 1/2" use 1 pen needle 100units E11.65 [...] CPT Code Status Date Vaccine Lot # [id number] Given 10/04/2016 Tdap - Tetanus/Diptheria/Acellular Pertussis [id number] Given 01/20/2015 Flu Vaccine Split Virus Preservative Free For [id number] Indiv [id number] Older [id number] Given 05/21/2012 Pneumonia Vaccine [id number] Vital Signs Date Vital Result Comment 11/28/2018 11:50am Height 63.25 inches 5'3.25" Weight 288.38 lb Heart Rate 83 /min BP Systolic 124 mmHg BP Diastolic 78 mmHg Body Temperature 97.1 F O2 % BldC Oximetry 99 % BMI (Body Mass Index) 50.7 kg/m2 11/22/2018 1:45pm Height 63.25 inches 5'3.25" Heart Rate 81 /min BP Systolic 120 mmHg BP Diastolic 60 mmHg Respiratory Rate 18 /min Body Temperature 98.0 F Pain Level 8 Results Test Date Facility Test Result H/L Range Note Ua Routine 11/28/2018 [facility] In House Ua Specific Howes 1.020 Ua PH 5 Ua Color dark yellow Ua Appera cloudy Ua WBC trace Ua Protein trace Ua Glucose normal Ua Ketones negative Ua Bilirubin + Ua Urobilinogen normal Ua Nitrite + Ua Occult Blood negative HIV 1&2 p24 11/22/2018 [facility] HIV 4th Nonreactive Nonreactive Screen [address] [place] [address] [phone] Laboratory 11/22/2018 [facility] Syphillis Igg Negative Negative test finding [address] W/[place] [address] [phone] GC/Chlamydia 11/22/2018 [facility] Chlamydia Negative Negative Amplified Rna [address] [place] [address] Abby [phone] Neisseria gonorrhoeae (GC) Abby Negative Negative CBC Auto 11/22/2018 [facility] White Blood 15.3 10^3/uL High 3.5-10.[address] [place] [address] [phone] Red Blood Count 5.06 10^6/uL High 3.70-4.87 [...] Blood Cells % 0.0 Laboratory test 11/22/2018 [facility] Partial 31.5 Normal 26.0 -38.[address] [address] Time PTT [phone] Inr/Protime 11/22/2018 [facility] Inr 0.95 Normal 0.82-1.[address] [place] [address] [phone] Urinalysis 11/22/2018 [facility] Urine Color Yellow Profile [address] [place] [address] [phone] Urine Appearance Cloudy Urine Specific Howes 1.022 Normal 1.010-1.030 Urine pH 5.0 Normal 5-9 Urine Urobilinogen Negative Negative Urine Ketones Negative Negative Urine Protein Negative Negative Urine Leukocytes Negative Negative Urine Blood Negative Negative Urine Nitrite Negative Negative Urine Bilirubin Negative Negative Urine Glucose 3+(>=500 mg/dL) Abnormal Negative Laboratory test 11/20/2018 [facility] Hemoglobin A1c 7.3 % High 4.0-5.[address] (Glyco HGB) [place] [address] [phone] Comp Metabolic 11/20/2018 [facility] Sodium 139 Normal 135- [address] mmol/[place] [address] [phone] Potassium 4.1 mmol/L Normal 3.5-5.0 Chloride 106 [...] Egfr Non- 68.0 >60 Egfr 82.2 >60 3 Laboratory test 10/09/2018 [facility] Surgical SEE RESULT [address] [place] [address] [phone] Laboratory test 10/09/2018 [facility] Clotest SEE RESULT [address] BELOW [place], [place] [id number] [phone] Laboratory test 10/09/2018 [facility] Point of Care 119 mg/dL High 70-10 [address] Glucose 0 [place] [address] [phone] Inr/Protime 09/30/2018 [facility] Inr 0.97 Normal 0.82- [address] 1.09 [place] [address] [phone] Laboratory test 09/30/2018 [facility] Point of Care 93 mg/dL Normal 70-10 [address] Glucose 0 [place] [address] [phone] Laboratory test 09/30/2018 [facility] Point of Care 60 mg/dL Low 70-10 [address] Glucose 0 [place] [address] [phone] Laboratory test 09/30/2018 [facility] Point of Care 60 mg/dL Low 70-10 [address] Glucose 0 [place] [address] [phone] CBC Auto Diff 09/30/2018 [facility] White Blood 15.1 High 3.5- [address] Count 10^3/uL 0.8 [place] [address] [phone] Red Blood Count 5.13 10^6/uL High 3.70-4.87 [...] Blood Cells % 0.0 Laboratory test 09/30/2018 [facility] C Reactive 13.99 mg/L High <8.01 finding [address] [facility] [place] [address] [phone] HCG < 0.60 mIU/mL 11 Comp Metabolic 09/30/2018 [facility] Sodium 139 mmol/L Normal 135-145 Panel [address] [place] [address] [phone] Potassium 3.9 mmol/L Normal 3.5-5.0 Chloride 104 [...] Non- 68.0 >60 Egfr 82.2 >60 12 Lipid Profile 09/17/2018 [facility] Triglycerides 173 mg/dL 13 (Trig/Chol/HDL) [address] [place] [address] [phone] Cholesterol 128 mg/dL 14 HDL Cholesterol 34.8 mg/dL 15 LDL Cholesterol 59 mg/dL 16 Liver Function 09/17/2018 [facility] Total Protein 6.5 g/dL Normal 6.4-8.9 Panel [address] [place] [address] [phone] Albumin 3.8 g/dL Normal 3.2-5.2 Globulin 2.7 g/dL Normal 2-4 Albumin/Globulin Ratio 1.4 Normal 1-3 Total Bilirubin 0.50 mg/dL Normal 0.2-1.0 Direct Bilirubin 0.10 mg/dL Normal 0.03-0.18 Indirect Bilirubin 0.4 mg/dL Normal 0.3-1.0 Alkaline Phosphatase 91 U/L Normal 34-104 Alt 14 U/L Normal 7-52 Ast 14 U/L Normal 13-39 Protein 09/17/2018 [facility] Total 6.5 g/dL 6.3 - Electrophoresis [facility] Protein(Pep) 7.9 [place] [address] [phone] Albumin 3.0 g/dL Abnormal 3.4-4.7 Alpha-1 Globulin 0.3 g/dL 0.1-0.3 Alpha-2 Globulin 1.2 g/dL Abnormal 0.6-1.0 Beta Globulin 1.2 g/dL 0.7-1.2 Gamma Globulin 0.9 g/dL 0.6-1.6 Albumin/Globulin Ratio 0.85 Impression See Comment 17 Laboratory test 09/17/2018 [facility] Folic Acid 11.94 ng/mL >3.99 [address] [place] [address] (Folate) [place] [address] [phone] Vitamin B12 398 pg/mL Normal 180-914 19 Lyme Screen W/ Reflex To WB Negative Negative 20 Methylmalonic Acid Mma 0.20 nmol/mL <=0.40 21 Lipid Profile 08/17/2018 [facility] Triglycerides 180 mg/dL 22 (Trig/Chol/HDL) [address] [place] [address] [phone] Cholesterol 209 mg/dL 23 HDL Cholesterol 42.0 mg/dL 24 LDL Cholesterol 131 mg/dL 25 Liver Function 08/17/2018 [facility] Direct 0.00 Low 0.03- 0.[address] Bilirubin mg/[place] [address] [phone] Comp Metabolic 08/17/2018 [facility] Sodium 138 Normal 135- [address] mmol/[place] [address] [phone] Potassium 4.5 mmol/L Normal 3.5-5.0 Chloride 103 [...] Egfr Non- 83.5 >60 Egfr 101.0 >60 26 Lipid Panel 08/17/2018 [facility] Creatine 172 U/L Normal 10- 223 - JFM [address] Kinase(CK) [place], [place] [id number] [phone] Lipid 08/02/2018 [facility] Triglycerides 208 [address] mg/dL (Trig/Chol/[place] [address] DL) [phone] Cholesterol 200 mg/dL 28 HDL Cholesterol 38.1 mg/dL 29 LDL Cholesterol 120 mg/dL 30 Comp Metabolic 08/02/2018 [facility] Sodium 136 mmol/L Normal 135-[address] [place] [address] [phone] Potassium 4.4 mmol/L Normal 3.5-5.0 Chloride 103 [...] Egfr Non- 73.8 >60 Egfr 89.4 >60 31 Laboratory test 08/02/2018 [facility] Hemoglobin A1c 9.0 % High 4.0-5.6 [address] (Glyco HGB) [place] [address] [phone] Laboratory test 06/21/2018 [facility] TSH (Thyroid 2.14 Normal 0.34-5.[address] Stim Horm) mcIU/[place] [address] [phone] Comp Metabolic 06/21/2018 [facility] Sodium 137 Normal 135- [address] mmol/[place] [address] [phone] Potassium 4.2 mmol/L Normal 3.5-5.0 Chloride 101 [...] Egfr Non- 92.1 >60 Egfr 111.5 >60 33 Laboratory test 06/21/2018 [facility] C-Peptide 2.2 ng/mL 1.1 - 4.4 34 finding [address] [place] [address] [phone] Lipid Profile 06/21/2018 [facility] Triglycerides 186 mg/dL 35 (Trig/Chol/HDL) [address] [place] [address] [phone] Cholesterol 211 mg/dL 36 HDL Cholesterol 44.1 mg/dL 37 LDL Cholesterol 130 mg/dL 38 Laboratory test finding 06/21/2018 [facility] Cortisol 5.08 g/ dL 39 [address] [place] [address] [phone] 1 Standard intensity warfarin therapeutic range: 2.0-3.0 High intensity warfarin therapeutic range: 2.5-3.5 2 Therapeutic target for the treatment of diabetes mellitus patients is <7% HBA1C, and in selective patients <6.0%. Please refer to [place] [employer] diabetic care guidelines for further information. 3 Because ethnic data is not always readily [...] 15-29 5 Kidney failure <15 (or dialysis) 4 SEE RESULT BELOW Name: MARYA PINA : [address]: Joshua Arita MD Acct: [id number] Unit: [id number] AGE: 38 Location: ENDO Re10/09/18 SEX: F Status: DEP REF SPEC: [id number] LAMBERTO: 10/09/18- SUBM DR: Joshua Arita MD REQ: [id number] RECD: 10/09/18 STATUS: MARYLOU LANGFORD DR: Tuyet Alvarado TEST DATA DEVELOPER _ ORDERED: LEVEL 4 FINAL DIAGNOSIS Stomach, [...] 1120 END OF REPORT DEPARTMENT OF PATHOLOGY, [address] [place] [address] Reese Fu M.D. Director [facility] # [id number] 5 SEE RESULT BELOW Name: MARYA PINA : [address]: Joshua Arita MD Acct: [id number] Unit: [id number] AGE: 38 Location: ENDO Re10/09/18 SEX: F Status: DEP REF SPEC: [id number] LAMBERTO: 10/09/18-[address] [facility] [address]: Joshua Arita MD REQ: [id number] RECD: 10/09/18 STATUS: COMP TAMMIE DR: Tuyet Alvarado TEST DATA DEVELOPER _ SOURCE: GAS ANTRUM SPDESC: ORDERED: Clotest Procedure Result Reported Site Clotest Final 10/10/18- 0846 ML Clotest Negative * ML - Main Lab . END OF REPORT DEPARTMENT OF PATHOLOGY, [address] [place] [address] Reese Fu M.D. Director [facility] # [id number] 6 Shipping Team Leader: [id number] Standard intensity warfarin therapeutic range: 2.0-3.0 High intensity warfarin therapeutic range: 2.5-3.5 8 Shipping Team Leader: [id number] 9 Shipping Team Leader: [id number] Shipping Team Leader: [id number] 11 <5.0 Negative 5.0 - 25.0 Indeterminate (Repeat testing recommended after 72 hours) >25.0 Positive Perimenopausal women can display HCG levels of up to 20 mIU/mL 12 Because ethnic data is not always [...] 5 Kidney failure <15 (or dialysis) 13 Desirable: <150 Borderline High: 150-199 High: 200-499 Very High: >500 14 Desirable: <200 Borderline High: 200-239 High: >239 15 Low: <40 Desirable: 40-60 High: >60 16 Desirable: <100 Near Optimal: 100-129 Borderline High: 130-159 High: 160-189 Very High: >189 17 RESULT: No apparent monoclonal protein on serum electrophoresis. Test Performed by: [facility] [address] [place] [address] 18 accidently received on batch 18. but specimen was not sent with batch 18. 19 Normal Range 180 to 914 Indeterminate Range 145 to 180 Deficient Range <145 20 accidently received on batch 18. but specimen was not sent with batch 18. 21 ADDITIONAL INFORMATION This test was developed and its performance characteristics determined by [facility] in a manner consistent with CLIA requirements. This test has not been cleared or approved by the U.S. Food and Drug Administration. Test Performed by: [facility] [address] [place] [address] 22 Desirable: <150 Borderline High: 150-199 High: 200-499 Very High: >500 23 Desirable: <200 Borderline High: 200-239 High: >239 24 Low: <40 Desirable: 40-60 High: >60 25 Desirable: <100 Near Optimal: 100-129 Borderline High: 130-159 High: 160-189 Very High: >189 26 Because ethnic data is not always [...] 5 Kidney failure <15 (or dialysis) 27 Desirable: <150 Borderline High: 150-199 High: 200-499 Very High: >500 28 Desirable: <200 Borderline High: 200-239 High: >239 29 Low: <40 Desirable: 40-60 High: >60 30 Desirable: <100 Near Optimal: 100-129 Borderline High: 130-159 High: 160-189 Very High: >189 31 Because ethnic data is not always [...] 5 Kidney failure <15 (or dialysis) 32 Therapeutic target for the treatment of diabetes mellitus patients is <7% HBA1C, and in selective patients <6.0%. Please refer to [place] [employer] diabetic care guidelines for further information. 33 Because ethnic data is not always [...] 5 Kidney failure <15 (or dialysis) 34 Test Performed by: [facility] [address] [place] [address] 35 Desirable: <150 Borderline High: 150-199 High: 200-499 Very High: >500 36 Desirable: <200 Borderline High: 200-239 High: >239 37 Low: <40 Desirable: 40-60 High: >60 38 Desirable: <100 Near Optimal: 100-129 Borderline High: 130-159 High: 160-189 Very High: >189 39 AM 8.7-22.4 PM <10 Procedures Date Code Description Status 11/22/2018 73674 EKG Tracing & Interpretation Completed 11/21/2018 30547 Inject Tendon Sheath Or Ligament Aponeurosis Eg Completed Plantar Fascia 10/17/2018 44998 Inject/Drain Joint/Bursa Major W/O US Completed 10/09/2018 09061 Endoscopy Upper GI Biopsy Completed 08/10/2017 086565123 Diabetic Retinal Eye Exam Completed 04/25/2016 510127299 Diabetic Retinal Eye Exam Completed 01/21/2015 421677980 Diabetic Retinal Eye Exam Completed Medical Devices Description No Information Available Encounters Type Date Location Provider Dx Diagnosis Office Visit 11/20/2018 [place] [facility] and Lius Coch, E11.42 Type 2 diabetes 9:00a [facility] mellitus with diabetic polyneuropathy M25.562 Pain in left knee Z79.4 correction (current) use of insulin E78.5 Hyperlipidemia, unspecified Office Visit 10/24/2018 9:45a [facility] Nhi Hamilton, M25.562 Pain in left Of C.M.A. M.D. knee M25.561 Pain in right knee M25.462 Effusion, left knee M25.461 Effusion, right knee E66.01 Morbid (severe) obesity due to excess calories M17.0 Bilateral primary osteoarthritis of knee M23.8x2 Other internal derangements of left knee Office Visit 10/23/2018 2:30p [place] Pawan Oconnell E66.01 Morbid ( severe) Services [...] to excess calories Office Visit 10/10/2018 10:00a [facility] Internal Tuyet Alvarado, M25.562 Pain in left Medicine - Ccmob N.P. knee Office Visit 09/21/2018 9:15a Pulmonology And Noemy Bedolla, R06.83 Snoring [facility] J45.909 Unspecified asthma, uncomplicated F17.210 Nicotine dependence, cigarettes, uncomplicated Office Visit 09/17/2018 [place] Fleice Oconnell E11.42 Type 2 diabetes 10:00a Neurologic Bereket Billingsley mellitus with [facility] diabetic polyneuropathy G43.009 Migraine w/o aura, not intractable, w/o status migrainosus Office Visit 09/13/2018 [facility] Joshua Aguayo E66.01 Morbid 2:45p MD Juan J (severe) obesity due to excess calories E11.65 Type 2 diabetes mellitus with hyperglycemia Office 08/17/2018 [facility] Internal Tuyet E78.00 Pure hypercholesterolemia, Visit 10:20a Medicine - Varn, N.P. unspecified Ccmob E11.65 Type 2 diabetes mellitus with hyperglycemia M25.569 Pain in unspecified knee M54.5 Low back pain J45.41 Moderate persistent asthma with (acute) exacerbation F17.210 Nicotine dependence, cigarettes, uncomplicated Office Visit 08/02/2018 8:40a [place] [facility] and Luis Murdock, Z79.4 computer terminal operator [facility] (current) use of insulin E11.65 Type 2 diabetes mellitus with hyperglycemia Office Visit 06/21/2018 11:00a [place] [facility] Luis Murdock, E11.40 Type 2 diabetes Endocrinology of mellitus with [facility] diabetic neuropathy, unsp E11.65 Type 2 diabetes mellitus with hyperglycemia E04.9 Nontoxic goiter, unspecified Assessments Date Code Description Provider 11/28/2018 R35.0 Frequency of micturition Johanofimoustapha Villanueva, CARD PUNCHING MACHINE OPERATOR 11/28/2018 E11.65 Type 2 diabetes mellitus with Zsofia Rich, CARD PUNCHING MACHINE OPERATOR hyperglycemia 11/22/2018 R94.31 Abnormal electrocardiogram [ECG] [EKG] Christina Dunlap MD 11/22/2018 Z01.818 Encounter for other preprocedural Tuyet Varn, N.P. examination 11/22/2018 S46.011A Strain of muscle(s) and tendon(s) of the Alfonso Torres MD rotator cuff of right shoulder, initial encounter 11/22/2018 S83.242A Other tear of medial meniscus, [...] left knee Luis Murdock MD 11/20/2018 Z79.4 computer terminal operator (current) use of insulin Luis Murdock MD 11/20/2018 E78.5 Hyperlipidemia, unspecified Lusi Murdock MD 11/14/2018 M25.562 Pain in left knee Ayana OliverDJessica 11/14/2018 M25.462 Effusion, left knee Nhi Hamilton M.D. 11/14/2018 E66.01 Morbid (severe) obesity due to excess Nhi Hamilton M.D. calories 11/14/2018 M17.0 Bilateral primary osteoarthritis of knee Nhi Hamilton M.D. 11/14/2018 S83.242A Other tear of medial meniscus, current Nhi Hamilton M.D. injury, left knee, initial encounter 10/24/2018 M25.562 Pain in left knee Parvin Oliver.DJessica 10/24/2018 M25.561 Pain in right knee Parvin Oliver.DJessica 10/24/2018 M25.462 Effusion, left knee Nhi Hamilton [...] 10/17/2018 M25.562 Pain in left knee Nhi Alfonso, M.D. 10/17/2018 M25.462 Effusion, left knee Nhi Hamilton M.D. 10/17/2018 M17.12 Unilateral primary osteoarthritis, left Nhi Hamilton M.D. knee 10/17/2018 Z68.43 Body mass index (BMI) 50.0-59.9, adult Nhi Hamilton M.D. 10/17/2018 E66.01 Morbid (severe) obesity due to excess Nhi Hamilton M.D. calories 10/10/2018 M25.562 Pain in left knee Tuyet Varn, N.P. 10/09/2018 Z01.818 Encounter for other preprocedural [...] cigarettes, Tuyet Varn, N.P. uncomplicated 08/02/2018 Z79.4 computer terminal operator (current) use of insulin Luis Murdock MD 08/02/2018 E11.65 Type 2 diabetes mellitus with Luis Murdock MD hyperglycemia 06/21/2018 E11.40 Type 2 diabetes mellitus with diabetic Luis Murdock MD neuropathy, unspecifi 06/21/2018 E11.65 Type 2 diabetes mellitus with Luis uMrdock MD hyperglycemia 06/21/2018 E04.9 Nontoxic goiter, unspecified Luis Murdock MD Plan of Treatment Future Appointment(s):12/27/2018 9:45 am - Alfonso Torres MD at [facility]..11/30/2018 8:20 am - Ronald Funez DO [facility] at [place] [facility]02/20/2019 9:00 am - Luis Murdock MD at [place] [facility]12/18/2018 7:30 am - Nhi Hamilton M.D. at [facility].12/12/2018 9:15 am - Nhi Hamilton M.D. at [facility]A.01/29/2019 11:45 am - Felice Billingsley M.D. at [facility]02/21/2019 11:00 am - Tuyet Varn, N.P. at [facility] - [id number]/ - Kaylah Villanueva, [id number] Frequency of micturitionComments:I will call if you need to take antibiotics for a UTI.Make sure you increase your fluid intake.Follow up:as [id number] Type 2 diabetes mellitus with hyperglycemiaComments:I suspect that your high readings are caused by the recent steroid injection I do not think you needto change your insulin coverage because of this but you should cut back on carbs for nowIncrease your fluid intake alsoYour sugars should go back to normal in a few days. Functional Status Description No Information Available Mental Status Description No Information Available Referrals Refer to Dr Reason for Referral Status Appt Date Ronald Funez, DO, [facility] Patient is a 38 year old morbidly obese [place] woman with diabetes, hypertension, and asthma. Her EKG is abnormal. I have referred her for cardiac evaluation. Thank you for seeing this complex patient. [facility] [place] [address] [phone] Irving Quiroga MD diabetic neuropathy Sent [address] [place] [address] [phone] Yennifer Naylor M.D. bilateral CTS [facility] [address] [place] [address] [phone] Nhi Hamilton MD Patient with bilateral knee pain, particularly Sent 2018 left, referred for evaluation and treatment. Thank you for seeing this very pleasant patient. [address] [place] [address] [phone]
--- OUTSIDE RECORDS SUMMARY | 2018-12-17 14:12 | XMS REPORT | Continuity of Care Document ---
:1980 External Reference #:[id number] Author Name Ronald Funez DO FAC (transmitted by agent of provider Harini Gaston) Address [address] [place] [address] Care Team Providers Name Role Phone Galo Fritz MD - Ophthalmology Care Team Information Bakery Assistant Ronald Nunez MD - Surgery Care Team Information Bakery Assistant [phone] Karla Rich MD - Internal Care Team Information Bakery Assistant [facility] Lili Herrera FNP-Cde - Family Care Team Information Bakery Assistant [facility] - Care Team Information Bakery Assistant [phone] Retail Event Assistant Yennifer Naylor M.D. - Surgery of Care Team Information Bakery Assistant the Hand Problems Active Problems Provider Date [...] Use Regularly uses Marijuana Smoking Status Reviewed: 11/30/18 Heavy tobacco smoker (more than 10 cigarettes/day) Exercise Type/Frequency Exercises sporadically Allergies, Adverse Reactions, Alerts Active Allergies Reaction Severity Comments Date Hydrocodone Pt states she itch all over. 05/21/2012 Latex itchy and rash 08/17/2015 Inactive Allergies NKDA 05/12/2011 Medications Active Medications SIG Qnty Indications Ordering Date Provider Vitamin D Take 1 Tablet By 4caps Cerulean (Ergocalciferol) Mouth Once A Week Varn, N.P. 9 [id number] For 8 Weeks Capsules Tylenol With Codeine #3 1 tablet by mouth 21tabs M25.562 Cerulean every 8 hours as Varn, N.P. 9 300-30mg Tablets needed cough Topiramate 1 po qhs 30tabs G43.009 [facility]. 100mg Tablets Bereket Billingsley 9 Lyrica take two caps by 120caps G62.9 [facility]. 50mg Capsules mouth twice a Bereket Billingsley 9 day. brand name necessary. code c Atorvastatin Calcium take 1 tablet by 90tabs E78.00 Cerulean 20mg mouth at bedtime Varn, N.P. 9 Tablets Ibuprofen 1 by mouth every 90tabs M54.5 Cerulean 600mg Tablets 6 hours as needed Varn, N.P. 9 for pain Advair Diskus inhale 1 dose by 60units J45.41 Cerulean 500-50mcg/Dose mouth twice daily Varn, N.P. 9 Aerosol (not taking) Humulin N 30 units QHS or 20ml E11.65 [facility], [facility]/ML Suspension as directed, MDD 9 60 Humulin R 30 units tid-ac 50ml [facility], 100Unit/ML Solution or as directed, MD Blake MDD 180 Onetouch Verio test four times 150units [facility], Strips daily and as MD Blake needed Onetouch Ultrasoft use to test blood 300units [facility], Lancets glucose three MD Blake Misc times a day and as needed Ozempic Hold On File, 1mg 3ml E11.65 [facility], 1mg/Dose Solution injection once MD Blake Pen-Inject weekly, hold on file for second month Insulin Syringe/0.5ML/30G 4 times daily for 150units E11.40 [facility], X 1/2" insulin MD Blake 30G X 1/2" 0.5 ML [facility] Blood Glucose Monitoring test blood sugars 1units E11.65 Cerulean System once fasting and Varn, N.P. 9 W/Device Kit 2 hours after dinner meal Blood Glucose Test test blood sugar 100units E11.65 Cerulean Strips fasting in in the Varn, N.P. 9 morning and 2 hours after dinner meal Lancet Device use when testing 100units E11.65 Cerulean [facility] blood gluose Varn, N.P. 9 Pantoprazole Sodium [...] Monica, 150mg Tablets By Mouth Twice A STEM DRYER MAINTAINER 8 Day Hydrochlorothiazide Take One Tablet 30tabs Cerulean 25mg By Mouth Every Varn, N.P. 8 Tablets Day Glucose Meter Test Strips for use 3-4 times 100units Cerulean Advanced daily Varn, N.P. 8 Strips Nebulizer use three times a 1units Cerulean Kit/Tubing/Mouthpiece day as needed Varn, N.P. 8 Kit Fluoxetine HCL Take One Capsule 30caps F43.23 Cerulean 20mg Capsules By Mouth Every Varn, N.P. 8 Day Montelukast Sodium Take One Tablet 30tabs J45.41 Cerulean 10mg Tablets By Mouth Every Varn, N.P. 7 Day Freestyle Lancets test up to 2 300units Cerulean Misc times a day or as Varn, N.P. 7 needed Metformin HCL ER Take 4 Tablets By 120tabs E11.65 Cerulean 500mg Tablets Mouth With Dinner Varn, N.P. 7 ER 24HR Fluconazole Take 1 Tablet By 2tabs Cerulean 150mg Tablets Mouth Then May Varn, N.P. 7 Repeat In 3 Days as Needed Simethicone 1 by mouth after 30caps R19.7 Cerulean 180mg Capsules each meal as Varn, N.P. 7 needed Ventolin HFA Inhale Two Puffs 18units Cerulean 108(90Base) By Mouth Four Varn, N.P. 6 mcg/Act Aerosol Times A Day as Needed Freestyle Lite Blood check fingerstick 1units E11.65 Cerulean Glucose Monitoring System three times daily Varn, N.P. 6 or as needed, DX Device - E11.65 Nebulizer use three times a 1units J20.9 Cerulean Device day as needed Varn, N.P. 6 Ipratropium inhale the 180units J20.9 Cerulean Fulshear/Albuterol Sulfate contents of one Varn, N.P. 6 vial via 0.5-2.5(3)mg/3ML Solution nebulizer three times a day as needed for asthma Senna Laxative 1 tab by mouth 15tabs K59.00 Noemy 25mg Tablets 1-2 times as MD Graeme 6 needed Compression Stockings knee high 2units I80.02 Cerulean Misc stockings 20 - 30 Varn, N.P. 6 mm Cetirizine HCL 1 by mouth every 30tabs J30.9 Cerulean 10mg Tablets day Varn, N.P. 6 Ramipril Take One Capsule 30caps I10 Cerulean 5mg Capsules By Mouth Every Varn, N.P. 5 Day Fluticasone Propionate New Vineyard One New Vineyard 16units Cerulean In Each Nostril Varn, N.P. 4 50mcg/Act [...] HCL 1 tablet three 21tabs M25.562 Tuyet Christiano, 10/10/2018 - 50mg times daily as N.P. [...] PM, MDD 08/07/2018 100 (70-30)100Unit/ML Supn Pen Ekron 1/2" use 1 pen needle 100units E11.65 [...] CPT Code Status Date Vaccine Lot # [id number] Given 10/04/2016 Tdap - Tetanus/Diptheria/Acellular Pertussis [id number] Given 01/20/2015 Flu Vaccine Split Virus Preservative Free For [id number] Indiv [id number] Older [id number] Given 05/21/2012 Pneumonia Vaccine [id number] Vital Signs Date Vital Result Comment 11/30/2018 7:52am Height 63.25 inches 5'3.25" Weight [...] /min BMI (Body Mass Index) 50.8 kg/m2 11/28/2018 11:50am Height 63.25 inches 5'3.25" Weight 288.38 lb Heart Rate 83 /min BP Systolic 124 mmHg BP Diastolic 78 mmHg Body Temperature 97.1 F O2 % BldC Oximetry 99 % BMI (Body Mass Index) 50.7 kg/m2 Results Test Date Facility Test Result H/L Range Note Ua Routine 11/28/2018 [facility] In House Ua Specific Worth 1.020 Ua PH 5 Ua Color dark yellow Ua Appera cloudy Ua WBC trace Ua Protein trace Ua Glucose normal Ua Ketones negative Ua Bilirubin + Ua Urobilinogen normal Ua Nitrite + Ua Occult Blood negative HIV 1&2 p24 11/22/2018 [facility] HIV 4th Nonreactive Nonreactive Screen [address] [place] [address] [phone] Laboratory 11/22/2018 [facility] Syphillis Igg Negative Negative test finding [address] W/[place] [address] [phone] GC/Chlamydia 11/22/2018 [facility] Chlamydia Negative Negative Amplified Rna [address] [place] [address] Abby [phone] Neisseria gonorrhoeae (GC) Abby Negative Negative CBC Auto 11/22/2018 [facility] White Blood 15.3 10^3/uL High 3.5-10.[address] [place] [address] [phone] Red Blood Count 5.06 10^6/uL High 3.70-4.87 [...] Blood Cells % 0.0 Laboratory test 11/22/2018 [facility] Partial 31.5 Normal 26.0 -38.[address] [place] [address] Time PTT [phone] Inr/Protime 11/22/2018 [facility] Inr 0.95 Normal 0.82-1.[address] [place] [address] [phone] Urinalysis 11/22/2018 [facility] Urine Color Yellow Profile [address] [place] [address] [phone] Urine Appearance Cloudy Urine Specific Worth 1.022 Normal 1.010-1.030 Urine pH 5.0 Normal 5-9 Urine Urobilinogen Negative Negative Urine Ketones Negative Negative Urine Protein Negative Negative Urine Leukocytes Negative Negative Urine Blood Negative Negative Urine Nitrite Negative Negative Urine Bilirubin Negative Negative Urine Glucose 3+(>=500 mg/dL) Abnormal Negative Laboratory test 11/20/2018 [facility] Hemoglobin A1c 7.3 % High 4.0-5.[address] (Glyco HGB) [place] [address] [phone] Comp Metabolic 11/20/2018 [facility] Sodium 139 Normal 135- [address] mmol/[place] [address] [phone] Potassium 4.1 mmol/L Normal 3.5-5.0 Chloride 106 [...] Egfr 82.2 >60 3 Laboratory test 10/09/2018 [facility] Surgical SEE RESULT [address] [place] [address] [phone] Laboratory test 10/09/2018 [facility] Clotest SEE RESULT [address] [place] [address] [phone] Laboratory test 10/09/2018 [facility] Point of Care 119 mg/dL High 70-10 [address] Glucose 0 [place] [address] [phone] Laboratory test 09/30/2018 [facility] Point of Care 93 mg/dL Normal 70-10 [address] Glucose 0 [place] [address] [phone] Laboratory test 09/30/2018 [facility] Point of Care 60 mg/dL Low 70-10 [address] Glucose 0 [place] [address] [phone] Laboratory test 09/30/2018 [facility] Point of Care 60 mg/dL Low 70-10 [address] Glucose 0 [place] [address] [phone] CBC Auto Diff 09/30/2018 [facility] White Blood 15.1 High 3.5- [address] Count 10^3/uL 0.8 [place] [address] [phone] Red Blood Count 5.13 10^6/uL High 3.70-4.87 [...] Blood Cells % 0.0 Comp Metabolic 09/30/2018 [facility] Sodium 139 mmol/L Normal 135-[address] [place] [address] [phone] Potassium 3.9 mmol/L Normal 3.5-5.0 Chloride 104 [...] Egfr 82.2 >60 10 Laboratory test 09/30/2018 [facility] C Reactive 13.99 mg/L High <8.[address] [place] [address] [phone] HCG < 0.60 mIU/mL 11 Inr/Protime 09/30/2018 [facility] Inr 0.97 Normal 0.82-1.[address] [place] [address] [phone] Lipid Profile 09/17/2018 [facility] Triglycerides 173 13 (Trig/Chol/HDL) [address] mg/[place] [address] [phone] Cholesterol 128 mg/dL 14 HDL Cholesterol 34.8 mg/dL 15 LDL Cholesterol 59 mg/dL 16 Liver Function 09/17/2018 [facility] Total Protein 6.5 g/dL Normal 6.4-8.[address] [place] [address] [phone] Albumin 3.8 g/dL Normal 3.2-5.2 Globulin 2.7 g/dL Normal 2-4 Albumin/Globulin Ratio 1.4 Normal 1-3 Total Bilirubin 0.50 mg/dL Normal 0.2-1.0 Direct Bilirubin 0.10 mg/dL Normal 0.03-0.18 Indirect Bilirubin 0.4 mg/dL Normal 0.3-1.0 Alkaline Phosphatase 91 U/L Normal 34-104 Alt 14 U/L Normal 7-52 Ast 14 U/L Normal 13-39 Laboratory test 09/17/2018 [facility] Folic Acid 11.94 ng/mL >3.[address] (Folate) [place] [address] [phone] Vitamin B12 398 pg/mL Normal 180-914 18 Lyme Screen W/ Reflex To WB Negative Negative 19 Methylmalonic Acid Mma 0.20 nmol/mL <=0.40 20 Protein 09/17/2018 [facility] Total 6.5 g/dL 6.3 - Electrophoresis [address] Protein(Pep) 7.9 [place] [address] [phone] Albumin 3.0 g/dL Abnormal 3.4-4.7 Alpha-1 Globulin 0.3 g/dL 0.1-0.3 Alpha-2 Globulin 1.2 g/dL Abnormal 0.6-1.0 Beta Globulin 1.2 g/dL 0.7-1.2 Gamma Globulin 0.9 g/dL 0.6-1.6 Albumin/Globulin Ratio 0.85 Impression See Comment 21 Liver 08/17/2018 [facility] Direct Bilirubin 0.00 Low 0.03- 0.[address] mg/[place] [address] [phone] Lipid Profile 08/17/2018 [facility] Triglycerides 180 mg/dL 22 (Trig/Chol/HD [address] L) [place] [address] [phone] Cholesterol 209 mg/dL 23 HDL Cholesterol 42.0 mg/dL 24 LDL Cholesterol 131 mg/dL 25 Comp Metabolic 08/17/2018 [facility] Sodium 138 mmol/L Normal 135-[address] [place] [address] [phone] Potassium 4.5 mmol/L Normal 3.5-5.0 Chloride 103 [...] >60 Egfr 101.0 >60 26 Lipid Panel - 08/17/2018 [facility] Creatine 172 U/L Normal 10 -[address] Kinase(CK) [place] [address] [phone] Comp Metabolic 08/02/2018 [facility] Sodium 136 Normal 135- [address] mmol/[place] [address] [phone] Potassium 4.4 mmol/L Normal 3.5-5.0 Chloride 103 [...] Egfr Non- 73.8 >60 Egfr 89.4 >60 27 Laboratory test 08/02/2018 [facility] Hemoglobin A1c 9.0 % High 4.0-5.6 28 finding 101 (Glyco HGB) [place] [address] [phone] Lipid Profile 08/02/2018 [facility] Triglycerides 208 29 (Trig/Chol/HDL) [address] DR[address] mg/dL [place], [place] [address] [phone] Cholesterol 200 mg/dL 30 HDL Cholesterol 38.1 mg/dL 31 LDL Cholesterol 120 mg/dL 32 Laboratory 06/21/2018 [facility] TSH (Thyroid 2.14 Normal 0.34 -5.[address] Stim Horm) mcIU/[place] [address] [phone] Comp Metabolic 06/21/2018 [facility] Sodium 137 mmol/L Normal 135-[address] [place] [address] [phone] Potassium 4.2 mmol/L Normal 3.5-5.0 Chloride 101 [...] Egfr 111.5 >60 33 Laboratory test 06/21/2018 [facility] C-Peptide 2.2 ng/mL 1.1 - 4.4 34 finding [address] [place] [address] [phone] Lipid Profile 06/21/2018 [facility] Triglycerides 186 mg/dL 35 (Trig/Chol/HDL) [address] [place] [address] [phone] Cholesterol 211 mg/dL 36 HDL Cholesterol 44.1 mg/dL 37 LDL Cholesterol 130 mg/dL 38 Laboratory test finding 06/21/2018 [facility] Cortisol 5.08 g/ dL 39 [address] [place] [address] [phone] 1 Standard intensity warfarin therapeutic range: 2.0-3.0 High intensity warfarin therapeutic range: 2.5-3.5 2 Therapeutic target for the treatment of diabetes mellitus patients is <7% HBA1C, and in selective patients <6.0%. Please refer to [place] [employer] diabetic care guidelines for further [...] [address]: Joshua Arita MD Acct: [id number] Unit: [id number] AGE: 38 Location: ENDO Re10/09/18 SEX: F Status: DEP REF SPEC: [id number] LAMBERTO: 10/09/18- SUBM DR: Joshua Arita MD REQ: [id number] RECD: 10/09/18 STATUS: MARYLOU LANGFORD DR: Tuyet Alvarado STEM DRYER MAINTAINER _ ORDERED: LEVEL 4 FINAL DIAGNOSIS Stomach, [...] 1120 END OF REPORT DEPARTMENT OF PATHOLOGY, [address] [place] [address] Reese Fu M.D. Director [facility] # [id number] 5 SEE RESULT BELOW Name: MARYA PINA : [address]: Joshua Arita MD Acct: [id number] Unit: [id number] AGE: 38 Location: ENDO Re10/09/18 SEX: F Status: DEP REF SPEC: [id number] LAMBERTO: 10/09/[address] [facility] [address]: Joshua Arita MD REQ: [id number] RECD: 10/09/18 STATUS: EDUARDO LANGFORD DR: Tuyet Alvarado STEM DRYER MAINTAINER _ SOURCE: [employer] SPDC: ORDERED: Clotest Procedure Result Reported Site Clotest Final 10/10/18- 845 ML Clotest Negative * ML - Main Lab . END OF REPORT DEPARTMENT OF PATHOLOGY, [address] [place] [address] Reese Fu M.D. Director [facility] # [id number] 6 Production Gear Cutter: [id number] Production Gear Cutter: [id number] Production Gear Cutter: [id number] Production Gear Cutter: [id number] 10 Because ethnic data is not always [...] levels of up to 20 mIU/mL 12 Standard intensity warfarin therapeutic range: 2.0-3.0 High intensity warfarin therapeutic range: 2.5-3.5 13 Desirable: <150 Borderline High: 150-199 High: 200-499 Very High: >500 14 Desirable: <200 Borderline High: 200-239 High: >239 15 Low: <40 Desirable: 40-60 High: >60 16 Desirable: <100 Near Optimal: 100-129 Borderline High: 130-159 High: 160-189 Very High: >189 17 accidently received on batch 18. but specimen was not sent with batch 18. 18 Normal Range 180 to 914 Indeterminate Range 145 to 180 Deficient Range <145 19 accidently received on batch 18. but specimen was not sent with batch 18. 20 ADDITIONAL INFORMATION This test was developed and its performance characteristics determined by [facility] in a manner consistent with CLIA requirements. This test has not been cleared or approved by the U.S. Food and Drug Administration. Test Performed by: [facility] [address] [place] [address] 21 RESULT: No apparent monoclonal protein on serum electrophoresis. Test Performed by: [facility] [address] [place] [address] 22 Desirable: <150 Borderline High: 150-199 High: [...] 5 Kidney failure <15 (or dialysis) 27 Because ethnic data is not always readily [...] 15-29 5 Kidney failure <15 (or dialysis) 28 Therapeutic target for the treatment of diabetes mellitus patients is <7% HBA1C, and in selective patients <6.0%. Please refer to [place] [employer] diabetic care guidelines for further information. 29 Desirable: <150 Borderline High: 150-199 High: 200-499 Very High: >500 30 Desirable: <200 Borderline High: 200-239 High: >239 31 Low: <40 Desirable: 40-60 High: >60 32 Desirable: <100 Near Optimal: 100-129 Borderline High: 130-159 High: 160-189 Very High: >189 33 Because ethnic data is not always [...] <15 (or dialysis) 34 Test Performed by: [facility] [address] [place] [address] 35 Desirable: <150 Borderline High: 150-199 High: 200-499 Very High: >500 36 Desirable: <200 Borderline High: 200-239 High: >239 37 Low: <40 Desirable: 40-60 High: >60 38 Desirable: <100 Near Optimal: 100-129 Borderline High: 130-159 High: 160-189 Very High: >189 39 AM 8.7-22.4 PM <10 Procedures Date Code Description Status 11/30/2018 85555 EKG Tracing & Interpretation Completed 11/22/2018 08761 EKG Tracing & Interpretation Completed 11/21/2018 81336 Inject Tendon Sheath Or Ligament Aponeurosis Eg Completed Plantar Fascia 10/17/2018 93609 Inject/Drain Joint/Bursa Major W/O US Completed 10/09/2018 84216 Endoscopy Upper GI Biopsy Completed 08/10/2017 232049863 Diabetic Retinal Eye Exam Completed 04/25/2016 246048859 Diabetic Retinal Eye Exam Completed 01/21/2015 982064294 Diabetic Retinal Eye Exam Completed Medical Devices Description No Information Available Encounters Type Date Location Provider Dx Diagnosis Office Visit 11/30/2018 [facility] Ronald Funez, R06.02 Shortness of 8:20a Of [employer] Mix Operator DO FACC breath R94.31 Abnormal electrocardiogram [ECG] [EKG] Z01.810 Encounter for preprocedural cardiovascular examination Z72.0 Tobacco use Office Visit 11/21/2018 1:45p [facility] Gabrielle Main, 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 M25.462 Effusion, left knee E66.01 Morbid (severe) obesity due to excess calories M17.0 Bilateral primary osteoarthritis of knee S83.242A Oth tear of medial meniscus, current injury, left knee, init Office Visit 10/24/2018 9:45a [facility] Nhi Hamilton, M25.562 [facility] M25.561 Pain in right knee M25.462 Effusion, left knee M25.461 Effusion, right knee E66.01 Morbid (severe) obesity due to excess calories M17.0 Bilateral primary osteoarthritis of knee M23.8x2 Other internal derangements of left knee Office Visit 10/23/2018 2:30p [facility] Felice Oconnell E66.01 Morbid ( severe) Services Of Chalino Billingsley M.D. obesity due to excess calories E11.42 Type 2 diabetes mellitus with diabetic polyneuropathy G43.009 Migraine w/o aura, not intractable, w/o status migrainosus Office Visit 10/17/2018 11:15a [facility] Hamilton M25.562 [facility] M25.462 Effusion, left knee M17.12 Unilateral primary osteoarthritis, left knee Z68.43 Body mass index (BMI) 50.0-59.9, adult E66.01 Morbid (severe) obesity due to excess calories Office Visit 10/10/2018 10:00a [facility] Internal Tuyet Alvarado, M25.562 Pain in left Medicine - Ccmob N.P. knee Office Visit 09/21/2018 9:15a Pulmonology And Noemy Bedolla, R06.83 Snoring Sleep Services Of MD Allred J45.909 Unspecified asthma, uncomplicated F17.210 Nicotine dependence, cigarettes, uncomplicated Office Visit 09/17/2018 Damon Oconnell E11.42 Type 2 diabetes 10:00a Neurologic Bereket Billingsley mellitus with [facility] diabetic polyneuropathy G43.009 Migraine w/o aura, not intractable, w/o status migrainosus Office Visit 09/13/2018 [facility] Gastroenterology Joshua Aguayo E66.01 Morbid 2:45p MD Juan J (severe) obesity due to excess calories E11.65 Type 2 diabetes mellitus with hyperglycemia Office 08/17/2018 [facility] Internal Tuyet E78.00 Pure hypercholesterolemia, Visit 10:20a Medicine - Varn, N.P. unspecified Ccmob E11.65 Type 2 diabetes mellitus with hyperglycemia M25.569 Pain in unspecified knee M54.5 Low back pain J45.41 Moderate persistent asthma with (acute) exacerbation F17.210 Nicotine dependence, cigarettes, uncomplicated Office Visit 08/02/2018 8:40a [facility] Luis Murdock, Z79.4 intermission coordinator Endocrinology of [facility] (current) use of insulin E11.65 Type 2 diabetes mellitus with hyperglycemia Office Visit 06/21/2018 11:00a [facility] Luis Murdock, E11.40 Type 2 diabetes Endocrinology of MD mellitus with [facility] diabetic neuropathy, unsp E11.65 Type 2 diabetes mellitus with hyperglycemia E04.9 Nontoxic goiter, unspecified Assessments Date Code Description Provider 11/30/2018 R06.02 Shortness of breath Ronald Funez, DO FAC 11/30/2018 R94.31 Abnormal electrocardiogram [ECG] [EKG] Ronald Funez, DO FAC 11/30/2018 Z01.810 Encounter for preprocedural Ronald Funez, DO [facility] cardiovascular examination 11/30/2018 Z72.0 Tobacco use Ronald Funez, DO FAC 11/28/2018 R35.0 Frequency of micturition ETHAN Harris 11/28/2018 E11.65 Type 2 diabetes mellitus with Kaylah Villanueva, BAKERY CLERK hyperglycemia 11/22/2018 R94.31 Abnormal electrocardiogram [ECG] [EKG] Christina Dunlap MD 11/22/2018 Z01.818 Encounter for other preprocedural Tuyet Varn, N.P. examination 11/22/2018 S83.242A Other tear of medial meniscus, current Tuyet Varn, N.P. injury, left knee, initial encounter 11/22/2018 S46.011A Strain of muscle(s) and tendon(s) of the Alfonso Sarah Torres MD rotator cuff of right shoulder, initial encounter 11/22/2018 E11.42 Type 2 diabetes [...] left knee Luis Murdock MD 11/20/2018 Z79.4 prison (current) use of insulin Luis Murdock MD 11/20/2018 E78.5 Hyperlipidemia, unspecified Luis Murdock MD 11/14/2018 M25.562 Pain in left knee Nhi Hamilton M.D. 11/14/2018 M25.462 Effusion, left knee NhiAyana ParisiDJessica 11/14/2018 E66.01 Morbid (severe) obesity due to excess Nhi Hamilton M.D. calories 11/14/2018 M17.0 Bilateral primary osteoarthritis of knee Nhi Alfonso, M.D. 11/14/2018 S83.242A Other tear of medial meniscus, current Nhi Hamilton M.D. injury, left knee, initial encounter 10/24/2018 M25.562 Pain in left knee Nhi Alfonso, M.D. 10/24/2018 M25.561 Pain in right knee Nhi Alfonso, M.D. 10/24/2018 M25.462 Effusion, left knee Parvin Oliver.DJessica 10/24/2018 M25.461 Effusion, left knee Nhiedwar Hamilton, M.D. 10/24/2018 E66.01 Morbid (severe) obesity due to excess Nhi Hamilton M.D. calories 10/24/2018 M17.0 Bilateral primary osteoarthritis of knee Nhiedwar Hamilton, AyanaDJessica 10/24/2018 M23.8x2 Other internal derangements of left knee Ayana OliverDJessica 10/23/2018 E66.01 Morbid (severe) obesity due to excess Felice Billingsley M.D. calories 10/23/2018 E11.42 Type 2 diabetes mellitus with diabetic Felice Billingsley M.D. polyneuropathy 10/23/2018 G43.009 Migraine without aura, not intractable, Felice Billingsley M.D. without status migrainosus 10/17/2018 M25.562 Pain in left knee Nhi Hamilton M.D. 10/17/2018 M25.462 Effusion, left knee Nhi Hamilton M.DJessica 10/17/2018 M17.12 Unilateral primary osteoarthritis, left Nhi [...] J45.41 Moderate persistent asthma with (acute) Tuyet Varcarlin, N.P. exacerbation 08/17/2018 F17.210 Nicotine dependence, cigarettes, Tuyet Alvarado, N.P. uncomplicated 08/02/2018 Z79.4 prison (current) use of insulin Luis Murdock MD 08/02/2018 E11.65 Type 2 diabetes mellitus with Luis Murdock MD hyperglycemia 06/21/2018 E11.40 Type 2 diabetes mellitus with diabetic Luis Murdock MD neuropathy, unspecifi 06/21/2018 E11.65 Type 2 diabetes mellitus with Luis Murdock MD hyperglycemia 06/21/2018 E04.9 Nontoxic goiter, unspecified Luis Murdock MD Plan of Treatment Future Appointment(s):12/17/2018 11:30 am - Ronald Funez DO FAC at [facility] AT [facility]01/01/2019 3:00 pm - Yennifer Painting NP at [facility]12/27/2018 9:45 am - Alfonso Torres MD at [facility] at [id number]/20/2019 9:00 am - Luis Murdock MD at [facility]12/18/2018 7:30 am - Nhi Hamilton M.D. at [facility] at [id number]/12/2018 9:15 am - Nhi Hamilton M.D. at [facility] at [id number]/29/2019 11:45 am - Felice Billingsley M.D. at [facility]02/21/2019 11:00 am - Tuyet Alvarado, N.P. at [facility] Internal Medicine - [facility]11/30/2018 - Ronald Funez DO FACCR06.02 Shortness of breathNew Orders:Stress Test, Exercise Echocardiogram, Ordered: Follow up:Please schedule exercise stress echo with me at [facility] on Monday (may need definity or transition to dobutamine) f/u prnR94.31 Abnormal electrocardiogram [ECG] [EKG]Z01.810 Encounter for preprocedural cardiovascular bavpwgosmgpV05.0 Tobacco use Functional Status Description No Information Available Mental Status Description No Information Available Referrals Refer to Dr Reason for Referral Status Appt Date Ronald Funez, DO, [facility] Patient is a 38 year old morbidly obese [place] woman with diabetes, hypertension, and asthma. Her EKG is abnormal. I have referred her for cardiac evaluation. Thank you for seeing this complex patient. [address] [place] [address] [phone] Irving Quiroga MD diabetic neuropathy Sent [address] [place] [address] [phone] Yennifer Naylor M.D. bilateral CTS Sent [address] [place] [address] [phone] Nhi Hamilton MD Patient with bilateral knee pain, particularly Sent 2018 left, referred for evaluation and treatment. Thank you for seeing this very pleasant patient. [address] [place] [address] [phone]
--- OUTSIDE RECORDS SUMMARY | 2018-12-17 14:13 | XMS REPORT | Continuity of Care Document ---
:1980 External Reference #:[id number] Author Name ETHAN Dang (transmitted by agent of provider Maddison Maldonado) Address [address] [place] [address] Care Team Providers Name Role Phone Tuyet Alvarado NP - Obstetrics & Care Team Information Director Auto [phone] Gynecology Problems Active Problems Provider Date Pain in calf ETHAN Dang Onset: 04/19/2018 Lymphedema James Richmond Onset: 07/13/2017 Edema James Richmond Onset: 07/13/2017 H/O: coagulation defect James Richmond Onset: 07/13/2017 History of thrombophlebitis James Richmond Onset: 07/13/2017 Varicose veins of lower extremity James Richmond Onset: 05/31/2017 Social History Type Date Description Comments Sex Unknown ETOH Use Denies alcohol use Tobacco Use Start: Unknown Patient is a current smoker, smokes every day Smoking Status Reviewed: 05/29/18 Patient is a current smoker, smokes every day Allergies, Adverse Reactions, Alerts Active Allergies Reaction Severity Comments Date Latex Hives 08/17/2015 Hydrocodone Pt states she itch all over. 05/21/2012 Medications Active Medications SIG Qnty Indications Ordering Provider Date Compression Stockings Wear Daily 1pr I83.891 James Richmond 03/21/2017 For 6 Months 20-30[facility] K[facility] I80.01 Topiramate Felice Billingsley, 25mg Tablets M.D. Pantoprazole Sodium Tuyet Alvarado NP 20mg Tablets DR Isaacs Calcium Tuyet Alvarado NP 20mg Tablets Amitriptyline HCL Unknown 10mg Tablets Tramadol HCL po prn Tuyet Alvarado NP 50mg Tablets Lyrica Take One Capsule By Unknown 50mg Capsules Mouth Twice A Day For 2 Weeks Then Take Two Capsules By Mouthtwice A Day Maximum Daily Dose 4 Capsules Humulin N qd as directed Unknown 100Unit/ML Suspension Humulin R tid as directed Unknown 100Unit/ML Solution Simethicone po prn Unknown 180mg Capsules Senna Laxative po prn Unknown 25mg Tablets Cetirizine HCL po qd Unknown 10mg [place] HFA inh prn Tuyet Alvarado NP 108(90Base) mcg/Act Aerosol SM Aspirin Adult Low Strength Tuyet Alvarado NP 81mg Tablets DR Ranitidine HCL Take One Tablet By Unknown 150mg Tablets Mouth Twice A Day Ipratropium [place]/Albuterol Tuyet Alvarado NP Sulfate 0.5-2.5(3)mg/3ML Solution Hydrochlorothiazide po qd Tuyet Alvarado NP 25mg Tablets Advair Diskus inh bid Unknown 500-50mcg/Dose Aerosol Fluoxetine HCL po qd Unknown 20mg Capsules Fluticasone Propionate bid Unknown 50mcg/Act Suspension Metformin HCL ER po qd Unknown 500mg Tablets ER 24HR Montelukast Sodium po qd Unknown 10mg Tablets Ramipril po qd Unknown 5mg Capsules Immunizations CPT Code Status Date Vaccine Lot # [id number] Refused 03/21/2017 Influenza Vaccine 19451-039-02 Vital Signs Date Vital Result Comment 11/15/2018 9:06am Height 63 inches 5'3" Weight 298.00 lb BP Systolic 97 mmHg BP Diastolic 57 mmHg BMI (Body Mass Index) 52.8 kg/m2 Heart Rate 77 /min Respiratory Rate 18 /min Pain Level 9 out of 10 10/18/2018 8:48am Height 63 inches 5'3" Weight 330.00 lb BP Systolic 125 mmHg BP Diastolic 76 mmHg BMI (Body Mass Index) 58.5 kg/m2 Heart Rate 100 /min Pain Level 9 out of 10 Results Description No Information Available Procedures Date Code Description Status 10/18/2018 10564 Duplex Scan Extremity Veins, Unilateral Or Limited Study Completed 10/15/2018 45066 Therapeutic, Prophylactic Or Diagnostic Injection Subq/Im Completed 10/15/2018 88570 Endovenous Laser Therapy Completed Medical Devices Description No Information Available Encounters Type Date Location Provider Dx Diagnosis Office Visit 10/18/2018 [facility] ETHAN Dang I83.891 Varicose veins of r 9:30a low extrem with other complications G89.18 Other acute postprocedural pain Z86.72 Personal history of thrombophlebitis Z68.43 Body mass index (BMI) 50.0-59.9, adult Office Visit 09/13/2018 11:00a [facility] James Richmond R60.0 Localized edema I89.0 Lymphedema, not elsewhere classified D68.9 Coagulation defect, unspecified I83.892 Varicose veins of l low extrem with other complications I83.891 Varicose veins of r low extrem with other complications Z68.43 Body mass index (BMI) 50.0-59.9, adult Office Visit 07/31/2018 11:30a [facility] James Richmond M79.605 Pain in left leg M79.604 Pain in right leg R60.0 Localized edema I89.0 Lymphedema, not elsewhere classified Assessments Date Code Description Provider 11/15/2018 Z68.43 Body mass index (BMI) 50.0-59.9, adult ETHAN Dang 10/18/2018 I83.891 Varicose veins of right lower extremity with ETHAN Dang other complicat 10/18/2018 G89.18 Other acute postprocedural pain ETHAN Dang 10/18/2018 Z86.72 Personal history of thrombophlebitis ETHAN Dang 10/18/2018 Z68.43 Body mass index (BMI) 50-59.9, adult ETHAN Dang 10/15/2018 I83.891 Varicose veins of right lower extremity with James Richmond other complicat 10/15/2018 D68.9 Coagulation defect, unspecified Richmond, James 10/15/2018 I89.0 Lymphedema, not elsewhere classified Richmond, James 10/15/2018 R60.0 Localized edema Richmond, James 09/13/2018 R60.0 Localized edema Richmond, James 09/13/2018 I89.0 Lymphedema, not elsewhere classified Richmond, James 09/13/2018 D68.9 Coagulation defect, unspecified Richmond, James 09/13/2018 I83.892 Varicose veins of left lower extremity with Richmond, James other complicati 09/13/2018 I83.891 Varicose veins of right lower extremity with Richmond, James other complicat 09/13/2018 Z68.43 Body mass index (BMI) 50-59.9, adult Richmond, James 07/31/2018 M79.605 Pain in left leg Richmond, James 07/31/2018 M79.604 Pain in right leg Richmond, James 07/31/2018 R60.0 Localized edema Richmond, James 07/31/2018 I89.0 Lymphedema, not elsewhere classified Richmond James Plan of Treatment No Information Available Functional Status Description No Information Available Mental Status Description No Information Available Referrals Refer to Reason for Referral Status Appt Date James Richmond M.D. RIGHT LEG SURGERY Created [address] [place] [address] [place] [address] [phone]
--- OUTSIDE RECORDS SUMMARY | 2018-12-17 14:13 | XMS REPORT | Continuity of Care Document ---
:1980 External Reference #:[id number] Author Name Felice Billingsley M.D. (transmitted by agent of provider Jessica Haddad ) Address [address] [facility], [place] [address] Care Team Providers Name Role Phone Galo Fritz MD - Ophthalmology Care Team Information Reading Assistant Ronald Nunez MD - Surgery Care Team Information Reading Assistant [phone] Karla Rich MD - Internal Care Team Information Reading Assistant [facility] Lili Herrera FNP-e - Family Care Team Information Reading Assistant [phone] [facility] - Care Team Information Reading Assistant [phone] Key Account Coordinator Problems Active Problems Provider Date Type II diabetes mellitus uncontrolled Constance Larkin M.D. Onset: 05/12/2011 Note: on insulin since 2017 Blood coagulation disorder Tuyet Alvarado, N.PJessica Onset: 07/18/2017 Morbid obesity Cosntance Larkin M.D. Onset: 05/12/2011 Tobacco user Constance Larkin M.D. Onset: 05/12/2011 Benign essential hypertension Cristina Garcia M.D. Onset: 03/14/2012 Sleep apnea Karla Rich M.D. Onset: 03/06/2012 Note: PFTs October 2017 normal with FVC 105% DLCO 70%; Asthma Karla Rich M.D. Onset: 02/21/2017 Lymphedema Tuyet Alvarado, N.Lori Onset: 09/04/2017 Allergic rhinitis Constance Larkin M.D. Onset: 05/12/2011 Gastroesophageal reflux disease Joshua Arita MD Onset: 09/13/2010 Social History Type Date Description Comments Sex [...] caused allergic contact dermatitis Smoking Status Reviewed: 10/23/18 1 pack/day variable amounts. Has tried quitting with patches which caused allergic contact dermatitis Exercise Type/Frequency Exercises regularly walking, limited by leg swelling Allergies, Adverse Reactions, Alerts Active Allergies Reaction Severity Comments Date Hydrocodone Pt states she itch all over. 05/21/2012 Latex itchy and rash 08/17/2015 Inactive Allergies NKDA 05/12/2011 Medications Active Medications SIG Qnty Indications Ordering Date Provider Topiramate 1 po qhs 30tabs G43.009 [facility]. 100mg Tablets Bereket Billingsley 9 Tramadol HCL 1 tablet three 21tabs M25.562 [place] 50mg Tablets times daily as Varn, N.P. 9 needed Lyrica 1 by mouth twice 120caps G62.9 [facility]. 50mg Capsules a day for 2 weeks Bereket Billingsley 9 then 2 twice a day Atorvastatin Calcium take 1 tablet by 90tabs E78.00 [place] 20mg mouth at bedtime Varn, N.P. 9 Tablets Ibuprofen 1 by mouth every 90tabs M54.5 [place] 600mg Tablets 6 hours as needed Varn, N.P. 9 for pain Advair Diskus inhale 1 dose by 60units J45.41 [place] 500-50mcg/Dose mouth twice daily Varn, N.P. 9 Aerosol (not taking) Humulin N 40 units QHS or 20ml E11.65 Smith Mathieu, 100Unit/ML Suspension as directed, ANASTASIA JOHNSON 9 60 Humulin R 40 units tid-ac 50ml Luis Murdock, 100Unit/ML Solution or as directed, MD Blake MDD 180 Onetouch Verio test four times 150units [facility], Strips daily and as MD Blake needed Onetouch Ultrasoft use to test blood 300units Smith [facility], [place] glucose three MD Blake Misc times a day and as needed Ozempic Hold On File, 1mg 3ml E11.65 [facility], 1mg/Dose Solution injection once MD Blake Pen-Inject weekly, hold on file for second month Insulin Syringe/0.5ML/30G 4 times daily for 150units E11.40 [facility], X 1/2" insulin MD Blake 30G X 1/2" 0.5 ML Misc Lancet Device use when testing 100units E11.65 [place] Misc blood gluose Varn, N.P. 9 Blood Glucose Test test blood sugar 100units E11.65 [place] Strips fasting in in the Varn, N.P. 9 morning and 2 hours after dinner meal Blood Glucose Monitoring test blood sugars 1units E11.65 [place] System once fasting and Varn, N.P. 9 W/Device Kit 2 hours after dinner meal Pantoprazole Sodium Take One Tablet 30tabs Tuyet [...] Monica, 150mg Tablets By Mouth Twice A SILO PAINTER 8 Day Hydrochlorothiazide Take One Tablet 30tabs Tuyet 25mg By Mouth Every Varn, N.P. 8 Tablets Day Glucose Meter Test Strips for use 3-4 times 100units Tuyet Advanced daily Varn, N.P. 8 Strips Nebulizer use three times a 1units Tuyet Kit/Tubing/Mouthpiece day as needed Varn, N.P. 8 Kit Fluoxetine HCL Take One Capsule 30caps F43.23 [place] 20mg Capsules By Mouth Every Varn, N.P. 8 Day Montelukast Sodium Take One Tablet 30tabs J45.41 [place] 10mg Tablets By Mouth Every Varn, N.P. 7 Day Freestyle Lancets test up to 2 300units [place] Misc times a day or as Varn, N.P. 7 needed Metformin HCL ER Take 4 Tablets By 120tabs E11.65 [place] 500mg Tablets Mouth With Dinner Varn, N.P. 7 ER 24HR Fluconazole Take 1 Tablet By 2tabs [place] 150mg Tablets Mouth Then May Varn, N.P. 7 Repeat In 3 Days as Needed Simethicone 1 by mouth after 30caps R19.7 [place] 180mg Capsules each meal as Varn, N.P. 7 needed Ventolin HFA Inhale Two Puffs 18units [place] 108(90Base) By Mouth Four Varn, N.P. 6 mcg/Act Aerosol Times A Day as Needed Freestyle Lite Blood check fingerstick 1units E11.65 [place] Glucose Monitoring System three times daily Varn, N.P. 6 or as needed, DX Device - E11.65 Nebulizer use three times a 1units J20.9 [place] Device day as needed Varn, N.P. 6 Ipratropium inhale the 180units J20.9 [place]/Albuterol Sulfate contents of one Varn, N.P. 6 vial via 0.5-2.5(3)mg/3ML Solution nebulizer three times a day as needed for asthma Senna Laxative 1 tab by mouth 15tabs K59.00 Noemy 25mg Tablets 1-2 times as MD Graeme 6 needed Compression Stockings knee high 2units I80.02 [place] Misc stockings 20 - 30 Varn, N.P. 6 mm Cetirizine HCL 1 by mouth every 30tabs J30.9 [place] 10mg Tablets day Varn, N.P. 6 Ramipril Take One Capsule 30caps I10 [place] 5mg Capsules By Mouth Every Varn, N.P. 5 Day Fluticasone Propionate Trout One Trout 16units [place] In Each Nostril Varn, N.P. 4 50mcg/Act Suspension Every Day as Needed Nebulizer J45.909 Cristina Garcia, Compressor/Dualfilter/7' M.DJessica 3 Tubing/Aerosol T/Mthpiece Kit Methocarbamol 1 by mouth twice Unknown 0000/000 Tablets a day as needed 0 for spasm History Medications Diclofenac Sodium apply 4 gms to 100gm M25.562 Tuyet Varn, 10/10/2018 - 1% both knees every N.P. 10/11/2018 Gel 6 hours as needed pain Topiramate 1 qhs for 1 week 120tabs [...] PM, MDD 08/07/2018 100 (70-30)100Unit/ML Supn Pen Collyer 1/2" use 1 pen needle 100units E11.65 [...] - mg) at bedtime 10/18/2018 10mg Tablets Doxycycline 1 by mouth twice 20tabs L08.9 Tuyet Alvarado, 05/03/2018 - Monohydrate a day x 10 days N.P. 05/13/2018 100mg Tablets Medications Administered in Office Medication SIG Qnty Indications Ordering Provider Date Depomedrol 40MG Nhi Hamilton M.D. 10/17/2018 Injection Records Fee Tuyet Alvarado N.P. 08/29/2018 Injection Immunizations CPT Code Status Date Vaccine Lot # [id number] Given 10/04/2016 Tdap - Tetanus/Diptheria/Acellular Pertussis [id number] Given 01/20/2015 Flu Vaccine Split Virus Preservative Free For [id number] Indiv [id number] Older [id number] Given 05/21/2012 Pneumonia Vaccine [id number] Vital Signs Date Vital Result Comment 10/23/2018 2:43pm Height 62.75 inches 5'2.75" Weight 307.00 lb Heart Rate 76 /min BP Systolic 126 mmHg BP Diastolic 76 mmHg BMI (Body Mass Index) 54.8 kg/m2 10/17/2018 12:04pm Height 62.75 inches 5'2.75" Weight 307.00 lb Heart Rate 78 /min BP Systolic 114 mmHg BP Diastolic 76 mmHg Respiratory Rate 12 /min Pain Level 10 BMI (Body Mass Index) 54.8 kg/m2 Results Test Date Facility Test Result H/L Range Note Laboratory test 10/09/2018 [facility] Surgical SEE RESULT [address] [place] [address] [phone] Laboratory test 10/09/2018 [facility] Clotest SEE RESULT [address] [place] [address] [phone] Laboratory test 10/09/2018 [facility] Point of Care 119 mg/dL High 70-100 [address] [place] [address] [phone] Laboratory test 09/30/2018 [facility] Point of Care 93 mg/dL Normal 70-100 [address] [place] [address] [phone] Laboratory test 09/30/2018 [facility] Point of Care 60 mg/dL Low 70-100 [address] [place] [address] [phone] Laboratory test 09/30/2018 [facility] Point of Care 60 mg/dL Low 70-100 [address] [place] [address] [phone] CBC Auto Diff 09/30/2018 [facility] White Blood 15.1 High 3.5- 10.[address] Count 10^3/[place] [address] [phone] Red Blood Count 5.13 10^6/uL High 3.70-4.87 [...] Blood Cells % 0.0 Comp Metabolic 09/30/2018 [facility] Sodium 139 mmol/L Normal 135-[address] [place] [address] [phone] Potassium 3.9 mmol/L Normal 3.5-5.0 Chloride 104 [...] Egfr Non- 68.0 >60 Egfr 82.2 >60 7 Laboratory test 09/30/2018 [facility] C Reactive 13.99 mg/L High <8.[address] [place] [address] [phone] HCG < 0.60 mIU/mL 8 Inr/Protime 09/30/2018 [facility] Inr 0.97 Normal 0.82-1.[address] [place] [address] [phone] Lipid Profile 09/17/2018 [facility] Triglycerides 173 10 (Trig/Chol/HDL) 101 mg/[place] [address] [phone] Cholesterol 128 mg/dL 11 HDL Cholesterol 34.8 mg/dL 12 LDL Cholesterol 59 mg/dL 13 Liver Function 09/17/2018 [facility] Total Protein 6.5 g/dL Normal 6.4-8.[address] [place] [address] [phone] Albumin 3.8 g/dL Normal 3.2-5.2 Globulin 2.7 g/dL Normal 2-4 Albumin/Globulin Ratio 1.4 Normal 1-3 Total Bilirubin 0.50 mg/dL Normal 0.2-1.0 Direct Bilirubin 0.10 mg/dL Normal 0.03-0.18 Indirect Bilirubin 0.4 mg/dL Normal 0.3-1.0 Alkaline Phosphatase 91 U/L Normal 34-104 Alt 14 U/L Normal 7-52 Ast 14 U/L Normal 13-39 Laboratory test 09/17/2018 [facility] Folic Acid 11.94 ng/mL >3.99 14 finding 101 (Folate) [place] [address] [phone] Vitamin B12 398 pg/mL Normal 180-914 15 Lyme Screen W/ Reflex To WB Negative Negative 16 Methylmalonic Acid Mma 0.20 nmol/mL <=0.40 17 Protein 09/17/2018 [facility] Total 6.5 g/dL 6.3 - Electrophoresis 101 Protein(Pep) 7.9 [place] [address] [phone] Albumin 3.0 g/dL Abnormal 3.4-4.7 Alpha-1 Globulin 0.3 g/dL 0.1-0.3 Alpha-2 Globulin 1.2 g/dL Abnormal 0.6-1.0 Beta Globulin 1.2 g/dL 0.7-1.2 Gamma Globulin 0.9 g/dL 0.6-1.6 Albumin/Globulin Ratio 0.85 Impression See Comment 18 Liver 08/17/2018 [facility] Direct Bilirubin 0.00 Low 0.03- 0.[address] mg/[place] [address] [phone] Lipid Profile 08/17/2018 [facility] Triglycerides 180 mg/dL 19 (Trig/Chol/HD DRIVE L) [place] [address] [phone] Cholesterol 209 mg/dL 20 HDL Cholesterol 42.0 mg/dL 21 LDL Cholesterol 131 mg/dL 22 Comp Metabolic 08/17/2018 [facility] Sodium 138 mmol/L Normal 135-[address] [place] [address] [phone] Potassium 4.5 mmol/L Normal 3.5-5.0 Chloride 103 [...] Egfr Non- 83.5 >60 Egfr 101.0 >60 23 Lipid Panel 08/17/2018 [facility] Creatine 172 U/L Normal 10- 223 - JFM [address] Kinase(CK) [place], [place] [id number] [phone] Lipid 08/02/2018 [facility] Triglycerides [address] mg/dL (Trig/Chol/[place] [address] DL) [phone] Cholesterol 200 mg/dL 25 HDL Cholesterol 38.1 mg/dL 26 LDL Cholesterol 120 mg/dL 27 Comp Metabolic 08/02/2018 [facility] Sodium 136 mmol/L Normal 135-[address] [place], [place] [address] [phone] Potassium 4.4 mmol/L Normal 3.5-5.0 Chloride 103 [...] Egfr Non- 73.8 >60 Egfr 89.4 >60 28 Laboratory test 08/02/2018 [facility] Hemoglobin A1c 9.0 % High 4.0-5.6 29 finding 101 (Glyco HGB) [place] [address] [phone] Laboratory test 06/21/2018 [facility] TSH (Thyroid 2.14 Normal 0.34-5.60 finding 101 Stim Horm) mcIU/[place] [address] [phone] Comp Metabolic 06/21/2018 [facility] Sodium 137 Normal 135- 145 Panel mmol/[place] [address] [phone] Potassium 4.2 mmol/L Normal 3.5-5.0 Chloride 101 [...] Egfr Non- 92.1 >60 Egfr 111.5 >60 30 Laboratory test 06/21/2018 [facility] C-Peptide 2.2 ng/mL 1.1 - 4.4 31 finding 101 [place] [address] [phone] Lipid Profile 06/21/2018 [facility] Triglycerides 186 mg/dL 32 (Trig/Chol/HDL) [address] [place] [address] [phone] Cholesterol 211 mg/dL 33 HDL Cholesterol 44.1 mg/dL 34 LDL Cholesterol 130 mg/dL 35 Laboratory test 06/21/2018 [facility] Cortisol 5.08 g/dL [address] [place] [address] [phone] Laboratory test 05/03/2018 [facility] In House Hemoglobin A1c 11.1 High 5-7 finding 1 SEE RESULT BELOW Name: SILVANAANNYFN Bates : [address]: Joshua Arita MD Acct: [id number] Unit: [id number] AGE: 38 Location: ENDO Re10/09/18 SEX: F Status: DEP REF SPEC: [id number] LAMBERTO: 10/09/18- SUBM DR: Joshua Arita MD REQ: [id number] RECD: 10/09/18 STATUS: MARYLOU [place] DR: Tuyet Alvarado SILO PAINTER _ ORDERED: LEVEL 4 FINAL DIAGNOSIS Stomach, [...] 1120 END OF REPORT DEPARTMENT OF PATHOLOGY, [address] [place] [address] Reese Fu M.D. Director [facility] # [id number] 2 SEE RESULT BELOW Name: MARYA PINA : [address]: Joshua Arita MD Acct: [id number] Unit: [id number] AGE: 38 Location: ENDO Re10/09/18 SEX: F Status: DEP REF SPEC: [id number] LAMBERTO: 10/09/18 [facility] DR: Joshua Arita MD REQ: [id number] RECD: 10/09/18 STATUS: EDUARDO LANGFORD DR: Tuyet Alvarado SILO PAINTER _ SOURCE: GAS ANTRUM SPDESC: ORDERED: Clotest Procedure Result Reported Site Clotest Final 10/10/18845 ML Clotest Negative * ML - Main Lab . END OF REPORT DEPARTMENT OF PATHOLOGY, [address] [place] [address] Reese Fu M.D. Director [facility] # [id number] 3 Mica Spreader: [id number] 4 Mica Spreader: [id number] 5 Mica Spreader: [id number] 6 Mica Spreader: [id number] 7 Because ethnic data is not always [...] 5 Kidney failure <15 (or dialysis) 8 <5.0 Negative 5.0 - 25.0 Indeterminate (Repeat testing recommended after 72 hours) >25.0 Positive Perimenopausal women can display HCG levels of up to 20 mIU/mL 9 Standard intensity warfarin therapeutic range: 2.0-3.0 High intensity warfarin therapeutic range: 2.5-3.5 10 Desirable: <150 Borderline High: 150-199 High: 200-499 Very High: >500 11 Desirable: <200 Borderline High: 200-239 High: >239 12 Low: <40 Desirable: 40-60 High: >60 13 Desirable: <100 Near Optimal: 100-129 Borderline High: 130-159 High: 160-189 Very High: >189 14 accidently received on batch 18. but specimen was not sent with batch 18. 15 Normal Range 180 to 914 Indeterminate Range 145 to 180 Deficient Range <145 16 accidently received on batch 18. but specimen was not sent with batch 18. 17 ADDITIONAL INFORMATION This test was developed and its performance characteristics determined by [facility] in a manner consistent with CLIA requirements. This test has not been cleared or approved by the U.S. Food and Drug Administration. Test Performed by: [facility] [place] [address] [place] [address] 18 RESULT: No apparent monoclonal protein on serum electrophoresis. Test Performed by: [facility] [address] [place] [address] 19 Desirable: <150 Borderline High: 150-199 High: 200-499 Very High: >500 20 Desirable: <200 Borderline High: 200-239 High: >239 21 Low: <40 Desirable: 40-60 High: >60 22 Desirable: <100 Near Optimal: 100-129 Borderline High: 130-159 High: 160-189 Very High: >189 23 Because ethnic data is not always readily [...] 15-29 5 Kidney failure <15 (or dialysis) 24 Desirable: <150 Borderline High: 150-199 High: [...] 5 Kidney failure <15 (or dialysis) 29 Therapeutic target for the treatment of diabetes mellitus patients is <7% HBA1C, and in selective patients <6.0%. Please refer to [place] [employer] diabetic care guidelines for further information. 30 Because [...] 5 Kidney failure <15 (or dialysis) 31 Test Performed by: [facility] [address] [place] [address] 32 Desirable: <150 Borderline High: 150-199 High: 200-499 Very High: >500 33 Desirable: <200 Borderline High: 200-239 High: >239 34 Low: <40 Desirable: 40-60 High: >60 35 Desirable: <100 Near Optimal: 100-129 Borderline High: 130-159 High: 160-189 Very High: >189 36 AM 8.7-22.4 PM <10 Procedures Date Code Description Status 10/17/2018 73318 Inject/Drain Joint/Bursa Major W/O US Completed 08/10/2017 027758390 Diabetic Retinal Eye Exam Completed 04/25/2016 584879550 Diabetic Retinal Eye Exam Completed 01/21/2015 659733364 Diabetic Retinal Eye Exam Completed Medical Devices Description No Information Available Encounters Type Date Location Provider Dx Diagnosis Office Visit 10/10/2018 [facility] Internal Tuyet Alvarado, M25.562 Pain [facility] left [facility] 10:[facility] 09/21/2018 Pulmonology And Noemy Bedolla, R06.83 Snoring 9:15a [facility] J45.909 Unspecified asthma, uncomplicated F17.210 Nicotine dependence, cigarettes, uncomplicated Office Visit 09/17/2018 Damon Oconnell E11.42 Type 2 diabetes 10:00a Neurologic Bereket Billingsley mellitus with Services Of [facility] diabetic polyneuropathy G43.009 Migraine w/o aura, not intractable, w/o status migrainosus Office Visit 09/13/2018 [facility] Gastroenterology Joshua Aguayo E66.01 Morbid 2:45p MD Juan J (severe) obesity due to excess calories E11.65 Type 2 diabetes mellitus with hyperglycemia Office 08/17/2018 [facility] Internal Tuyet E78.00 Pure hypercholesterolemia, Visit 10:20a Medicine - [place], N.P. unspecified Ccmob E11.65 Type 2 diabetes mellitus with hyperglycemia M25.569 Pain in unspecified knee M54.5 Low back pain J45.41 Moderate persistent asthma with (acute) exacerbation F17.210 Nicotine dependence, cigarettes, uncomplicated Office Visit 08/02/2018 8:40a [place] [facility] and Luis Murdock, Z79.4 snf Endocrinology of [facility] (current) use of insulin E11.65 Type 2 diabetes mellitus with hyperglycemia Office Visit 06/21/2018 11:00a [place] [facility] and Luis Murdock, E11.40 Type 2 diabetes Endocrinology of MD mellitus with [facility] diabetic neuropathy, unsp E11.65 Type 2 diabetes mellitus with hyperglycemia E04.9 Nontoxic goiter, unspecified Office Visit 05/03/2018 11:20a [facility] Internal Tuyet Alvarado, Z00.01 [facility] 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 knee 10/17/2018 E66.01 Morbid (severe) obesity due to excess Nhi Hamilton M.D. calories 10/10/2018 M25.562 Pain in left knee Tuyet Alvarado, N.P. 09/21/2018 R06.83 Snoring Noemy Bedolla MD 09/21/2018 [...] 09/13/2018 E11.65 Type 2 diabetes mellitus with hyperglycemia Joshua Arita MD 08/29/2018 H66.93 Otitis media, unspecified, bilateral Tuyet Varn, N.P. 08/29/2018 J20.9 Acute bronchitis, unspecified Tuyet Varn, N.P. 08/29/2018 J45.901 Unspecified asthma with (acute) Tuyet Varn, N.P. exacerbation 08/29/2018 L03.116 Cellulitis of left lower limb Tuyet Varn, N.P. 08/17/2018 E78.00 Pure hypercholesterolemia, unspecified Tuyet Varn, N.P. 08/17/2018 E11.65 Type 2 diabetes mellitus with hyperglycemia Tuyet Varn , N.P. 08/17/2018 M25.569 Pain in unspecified knee Tuyet Varn, N.P. 08/17/2018 M54.5 Low back pain Tuyet Varn, N.P. 08/17/2018 J45.41 Moderate persistent asthma with (acute) Tuyet Varn, N.P. exacerbation 08/17/2018 F17.210 Nicotine dependence, cigarettes, Tuyet Varn, N.P. 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 examination with abnorma 05/03/2018 E11.40 Type 2 diabetes mellitus with diabetic Tuyet Varn, N.P. neuropathy, unspecifi 05/03/2018 E11.65 dings Tuyet Varn, N.P. 05/03/2018 J45.901 Unspecified asthma with (acute) Tuyet Varn, N.P. exacerbation 05/03/2018 L03.116 Cellulitis of left lower limb Tuyet Varn, N.P. 05/03/2018 L02.416 Cutaneous abscess of left lower limb Tuyet Varn, N.P. 05/03/2018 F17.210 Nicotine dependence, cigarettes, Tuyet Varn, N.P. uncomplicated 05/03/2018 Z79.4 snf (current) use of insulin Tuyet Varn, N.P. 05/03/2018 E66.01 Morbid (severe) obesity due to excess Tuyet Alvarado N.P. calories 05/03/2018 Z68.43 Body mass index (BMI) 50-59.9, adult Tuyet Alvarado N.P. 05/03/2018 G47.33 Obstructive sleep apnea (adult) (pediatric) Tuyet Alvarado N.P. 05/03/2018 I89.0 Lymphedema, not elsewhere classified Tuyet Alvarado N.Brie. Plan of Treatment Future Appointment(s):01/29/2019 11:45 am - Felice Billingsley M.D. at [place] [facility]11/29/2018 10:30 am - Yennifer Painting NP at Pul[facility]ology [facility]10/24/2018 9:45 am - Nhi Hamilton M.D. at [facility]02/21/2019 11:00 am - Tuyet Alvarado N.P. at [facility] Internal Medicine - [facility]11/01/2018 9:40 am - Luis Murdock MD at [place] [facility]10/23/2018 - Felice Billingsley M.D.E66.01 Morbid (severe) obesity due to excess puikkksuW36.42 Type 2 diabetes mellitus with diabetic polyneuropathyFollow up:3 - 4 EFYVEOT03.009 Migraine without aura , not intractable, without status migrainosusNew Medication:Topiramate 100 mg - 1 po qhsRecommendations:Once you get to 100 mg of Topamax switch to the 100 mg tablets and take just one at night Functional Status Description No Information Available Mental Status Description No Information Available Referrals Refer to Reason for Referral Status Appt Nhi Hamilton MD Patient with bilateral knee pain, particularly Sent 2018 left, referred for evaluation and treatment. Thank you for seeing this very pleasant patient. [address] [facility] [place] [address] [phone] Luis Murdock MD Patient with uncontrolled diabetes referred for Sent 2018 management. [address] [facility] [address] [place] [address] [phone] [facility] Healthy Patient with uncontrolled diabetes Closed Living and morbid obesity referred for possible weight loss surgery. [address] [facility] [address] [place] [address] [phone]
--- OUTSIDE RECORDS SUMMARY | 2018-12-17 14:13 | XMS REPORT | Continuity of Care Document ---
:1980 External Reference #:[id number] Author Name ETHAN Dang (transmitted by agent of provider Maddison Maldonado) Address [address] [place] [address] Care Team Providers Name Role Phone Tuyet Alvarado NP - Obstetrics & Care Team Information [employer] Gynecology Problems Active Problems Provider Date Pain in calf Felicia ETHAN Hunt Onset: 04/19/2018 Lymphedema James Richmond Onset: 07/13/2017 [...] 03/21/2017 For 6 Months 20-30MMHG Knee Highs Misc I80.01 Tramadol HCL Tuyet Alvarado NP 50mg Tablets Lyrica 50mg Take One Capsule By Unknown Capsules Mouth Twice A Day For 2 Weeks Then Take Two Capsules By Mouthtwice A Day Maximum Daily Dose 4 Capsules Humulin N Unknown 100Unit/ML Suspension Humulin R Unknown 100Unit/ML Solution Simethicone Unknown 180mg Capsules Senna Laxative po prn Unknown 25mg Tablets Cetirizine HCL po qd Unknown 10mg [place] HFA Tuyet Alvarado NP 108(90Base) mcg/Act Aerosol SM Aspirin Adult Low Strength Tuyet Alvarado NP 81mg Tablets DR Ranitidine HCL Take One Tablet By Unknown 150mg Tablets Mouth Twice A Day Ipratropium [place]/Albuterol Tuyet Alvarado NP Sulfate 0.5-2.5(3)mg/3ML Solution Hydrochlorothiazide Tuyet Alvarado NP 25mg Tablets Advair Diskus Unknown 500-50mcg/Dose Aerosol Fluoxetine HCL Unknown 20mg Capsules Fluticasone Propionate Unknown 50mcg/Act Suspension Metformin HCL ER Unknown 500mg Tablets ER 24HR Montelukast Sodium Unknown 10mg Tablets Ramipril Unknown 5mg Capsules Immunizations CPT Code Status Date Vaccine Lot # [id number] Refused 03/21/2017 Influenza Vaccine 39037-147-41 Vital Signs Date Vital Result Comment 10/18/2018 8:48am Height 63 inches 5'3" Weight 330.00 lb BP Systolic 125 mmHg BP Diastolic 76 mmHg BMI (Body Mass Index) 58.5 kg/m2 Heart Rate 100 /min Pain Level 9 out of 10 09/13/2018 10:52am Height 63 inches 5'3" Weight 330.00 lb BP Systolic 129 mmHg BP Diastolic 46 mmHg BMI (Body Mass Index) 58.5 kg/m2 Heart Rate 95 /min Respiratory Rate 18 /min Results Description No Information Available Procedures Date Code Description Status 10/18/2018 12934 Duplex Scan Extremity Veins, Unilateral Or Limited Study Completed 10/15/2018 29882 Therapeutic, Prophylactic Or Diagnostic Injection Subq/Im Completed 10/15/2018 80597 Endovenous Laser Therapy Completed Medical Devices Description No Information Available Encounters Type Date Location Provider Dx Diagnosis Office Visit 10/18/2018 [facility] Felicia Hunt [facility] I83.891 Varicose veins of r 9:30a low extrem with other complications G89.18 Other acute postprocedural pain Z86.72 Personal history of thrombophlebitis Z68.43 Body mass index (BMI) 50.0-59.9, adult Office Visit 09/13/2018 11:00a [facility] Marco Richmondmo R60.0 Localized edema I89.0 Lymphedema, not elsewhere [...] elsewhere classified Assessments Date Code Description Provider 10/18/2018 I83.891 Varicose veins of right lower extremity with Felicia Hunt [facility] other complicat 10/18/2018 G89.18 Other acute postprocedural pain Feliciaaleida Hunt [facility] 10/18/2018 Z86.72 Personal history of thrombophlebitis Feliciaaleida Hunt [facility] 10/18/2018 Z68.43 Body mass index (BMI) 50-59.9, adult Felicia Hunt [facility] 10/15/2018 I83.891 Varicose veins of right lower extremity with James Richmond other complicat 10/15/2018 D68.9 Coagulation defect, unspecified Richmond, James 10/15/2018 I89.0 Lymphedema, not elsewhere classified RichmondMagdaJames 10/15/2018 R60.0 Localized edema Richmond, James 09/13/2018 R60.0 Localized edema Richmond, James 09/13/2018 I89.0 Lymphedema, not elsewhere classified Richmond, James 09/13/2018 D68.9 Coagulation defect, unspecified Richmond, James 09/13/2018 I83.892 Varicose veins of left lower extremity with James Richmond other complicati 09/13/2018 I83.891 Varicose veins of right lower extremity with James Richmond other complicat 09/13/2018 Z68.43 Body mass index (BMI) 50-59.9, adult RichmondJames 07/31/2018 M79.605 Pain in left leg Richmond, James 07/31/2018 M79.604 Pain in right leg James Richmond 07/31/2018 R60.0 Localized edema Richmond, James 07/31/2018 I89.0 Lymphedema, not elsewhere classified James Richmond Plan of Treatment Future Appointment(s):11/15/2018 9:00 am - [facility]AN [facility]ang [facility] Functional Status Description No Information Available Mental Status Description No Information Available Referrals Refer to Reason for Referral Status Appt Date James Richmond M.D. RIGHT LEG SURGERY Created [address] [facility] [place] [address] [place] [address] [phone]
--- OUTSIDE RECORDS SUMMARY | 2018-12-17 14:13 | XMS REPORT | Continuity of Care Document ---
:1980 External Reference #:[id number] Author Name Felicia ETHAN Hunt Address [address] [facility] [place] [address] [place] [address] Care Team Providers Name Role Phone Tuyet Alvarado NP - Obstetrics & Care Team Information [employer] [place] [phone] Gynecology Problems Active Problems Provider Date Pain [...] 6 Months 20-30MMHG Knee Highs Misc I80.01 Topiramate Felice Billingsley, 25mg Tablets M.D. [...] 150mg Tablets Mouth Twice A Day Ipratropium [place]/Albuterol Tuyet Alvarado NP Sulfate 0.5-2.5(3)mg/3ML Solution Hydrochlorothiazide [...] CPT Code Status Date Vaccine Lot # [id number] Refused 03/21/2017 Influenza Vaccine [id number] Vital Signs Date Vital Result Comment 11/15/2018 [...] Information Available Procedures Date Code Description Status 11/15/2018 59511 Duplex Scan Extremity Veins, Unilateral Or Limited Study Completed 10/18/2018 16616 Duplex Scan Extremity Veins, Unilateral Or Limited Study Completed 10/15/2018 91094 Therapeutic, Prophylactic Or Diagnostic Injection Subq/Im Completed 10/15/2018 40795 Endovenous Laser Therapy Completed Medical Devices Description No Information Available Encounters Type Date Location Provider Dx Diagnosis Office Visit 11/15/2018 [facility] ETHAN Dang I83.891 Varicose veins of r 9:00a low extrem with other complications Z68.43 Body mass index (BMI) 50.0-59.9, adult Office Visit 10/18/2018 9:30a [facility] Felicia Hunt I83.891 Varicose veins of r [employer] low extrem with other complications G89.18 Other [...] classified Assessments Date Code Description Provider 11/15/2018 I83.891 Varicose veins of right lower extremity with ETHAN Dang other complicat 11/15/2018 Z68.43 Body mass index (BMI) 50.0-59.9, adult ETHAN Dang 10/18/2018 I83.891 Varicose veins of right lower extremity with ETHAN Dang other complicat 10/18/2018 G89.18 Other acute postprocedural pain ETHAN Dang 10/18/2018 Z86.72 Personal history of thrombophlebitis Felicia [facility] 10/18/2018 Z68.43 Body mass index (BMI) 50-59.9, adult Felicia Hunt, [facility] 10/15/2018 I83.891 Varicose veins of right lower extremity with Richmond, James other complicat 10/15/2018 D68.9 Coagulation defect, unspecified [...] classified James Richmond Plan of Treatment Future Appointment(s):01/10/2019 9:00 am - James Richmond [facility] Functional Status Description No Information Available Mental Status Description No Information Available Referrals Refer to Reason for Referral Status Appt Date James Richmond M.D. RIGHT LEG SURGERY Created [address] [place] [address] [address] [facility] [place] [address] [phone]
--- OUTSIDE RECORDS SUMMARY | 2018-12-17 14:13 | XMS REPORT | Continuity of Care Document ---
:1980 External Reference #:[id number] Author Name Nhi Hamilton M.D. (transmitted by agent of provider Darwin Nichole) Address [address] [facility] [address] Care Team Providers Name Role Phone Galo Fritz MD - Ophthalmology Care Team Information Last Marker [phone] Ronald Nunez MD - Surgery Care Team Information Last Marker [phone] Karla Rich MD - Internal Care Team Information Last Marker [facility] Lili Herrera FNP-e - Family Care Team Information Last Marker [phone] [facility] - Care Team Information Last Marker Vp Delivery Problems Active Problems Provider Date Type II [...] caused allergic contact dermatitis Smoking Status Reviewed: 10/24/18 1 pack/day variable amounts. Has tried quitting [...] Provider Topiramate 1 po qhs 30tabs G43.009 [facility] 100mg Tablets Bereket Billingsley 9 Tramadol HCL 1 tablet three 21tabs M25.562 Anvik 50mg Tablets times daily as Varn, N.P. 9 needed Lyrica 1 by mouth twice 120caps G62.9 [facility] 50mg Capsules a day for 2 weeks Bereket Billingsley 9 then 2 twice a day Atorvastatin Calcium take 1 tablet by 90tabs E78.00 Anvik 20mg mouth at bedtime Varn, N.P. 9 Tablets Ibuprofen 1 by mouth every 90tabs M54.5 Anvik 600mg Tablets 6 hours as needed Varn, N.P. 9 for pain Advair Diskus inhale 1 dose by 60units J45.41 Anvik 500-50mcg/Dose mouth twice daily Varn, N.P. 9 Aerosol (not taking) Humulin N 40 units QHS or 20ml E11.65 [facility], 100Unit/ML Suspension as directed, ANASTASIA JOHNSON 9 60 Humulin R 40 units tid-ac 50ml Smith Coch, 100Unit/ML Solution or as directed, MD Blake MDD 180 Onetouch Verio test four times 150units Smith [facility], Strips daily and as MD Blake needed Onetouch Ultrasoft use to test blood 300units Smith [facility], Lancets glucose three MD Blake Misc times a day and as needed Ozempic Hold On File, 1mg 3ml E11.65 [facility], 1[facility]/Dose Solution injection once MD Blake Pen-Inject weekly, hold on file for second month Insulin Syringe/0.5ML/30G 4 times daily for 150units E11.40 Smith [facility], X 1/2" insulin MD Blake 30G X 1/2" 0.5 ML Misc Lancet Device use when testing 100units E11.65 Anvik Misc blood gluose Varn, N.P. 9 Blood Glucose Test test blood sugar 100units E11.65 Anvik Strips fasting in in the Varn, N.P. 9 morning and 2 hours after dinner meal Blood Glucose Monitoring test blood sugars 1units E11.65 Anvik System once fasting and Varn, N.P. 9 W/Device Kit 2 hours after dinner meal Pantoprazole Sodium Take One Tablet 30tabs Tuyet 20mg By Mouth Every Varn, N.P. [address] Day SM Aspirin Adult Low Take One Tablet 30tabs Tuyet Strength By Mouth Every Varn, N.P. [address] Day Mucinex twice a day as 20tabs J20.9 Anvik 600mg Tablets ER 12HR needed Varn, N.P. 8 Ranitidine HCL Take One Tablet 60tabs Shane Monica, 150mg Tablets By Mouth Twice A HEALTH MANAGER 8 Day Hydrochlorothiazide Take One Tablet 30tabs Tuyet 25mg By Mouth Every Varn, N.P. 8 Tablets Day Glucose Meter Test Strips for use 3-4 times 100units Tuyet Advanced daily Varn, N.P. 8 Strips Nebulizer use three times a 1units Anvik Kit/Tubing/Mouthpiece day as needed Varn, N.P. 8 Kit Fluoxetine HCL Take One Capsule 30caps F43.23 Anvik 20mg Capsules By Mouth Every Varn, N.P. 8 Day Montelukast Sodium Take One Tablet 30tabs J45.41 Anvik 10mg Tablets By Mouth Every Varn, N.P. 7 Day Freestyle Lancets test up to 2 300units Anvik Misc times a day or as Varn, N.P. 7 needed Metformin HCL ER Take 4 Tablets By 120tabs E11.65 Anvik 500mg Tablets Mouth With Dinner Varn, N.P. 7 ER 24HR Fluconazole Take 1 Tablet By 2tabs Anvik 150mg Tablets Mouth Then May Varn, N.P. 7 Repeat In 3 Days as Needed Simethicone 1 by mouth after 30caps R19.7 Anvik 180mg Capsules each meal as Varn, N.P. 7 needed Ventolin HFA Inhale Two Puffs 18units Anvik 108(90Base) By Mouth Four Varn, N.P. 6 mcg/Act Aerosol Times A Day as Needed Freestyle Lite Blood check fingerstick 1units E11.65 Anvik Glucose Monitoring System three times daily Varn, N.P. 6 or as needed, DX Device - E11.65 Nebulizer use three times a 1units J20.9 Anvik Device day as needed Varn, N.P. 6 Ipratropium inhale the 180units J20.9 Anvik Proctor/Albuterol Sulfate contents of one Varn, N.P. 6 vial via 0.5-2.5(3)mg/3ML Solution nebulizer three times a day as needed for asthma Senna Laxative 1 tab by mouth 15tabs K59.00 Noemy 25mg Tablets 1-2 times as MD Graeme 6 needed Compression Stockings knee high 2units I80.02 Anvik Misc stockings 20 - 30 Varn, N.P. 6 mm Cetirizine HCL 1 by mouth every 30tabs J30.9 Anvik 10mg Tablets day Varn, N.P. 6 Ramipril Take One Capsule 30caps I10 Anvik 5mg Capsules By Mouth Every Varn, N.P. 5 Day Fluticasone Propionate [facility] 16units Anvik In Each Nostril Varn, N.P. 4 50mcg/Act Suspension Every Day as Needed Nebulizer J45.909 Cristina Garcia, Compressor/Dualfilter/7' M.D. 3 Tubing/Aerosol T/Mthpiece Kit Methocarbamol 1 by mouth twice Unknown Tablets a day as needed 0 for [...] PM, MDD 08/07/2018 100 (70-30)100Unit/ML Supn Pen [place] 1/2" use 1 pen needle 100units E11.65 [...] CPT Code Status Date Vaccine Lot # [id number] Given 10/04/2016 Tdap - Tetanus/Diptheria/Acellular Pertussis [id number] Given 01/20/2015 Flu Vaccine Split Virus Preservative Free For [id number] Indiv [id number] Older [id number] Given 05/21/2012 Pneumonia Vaccine [id number] Vital Signs Date Vital Result Comment 10/24/2018 9:56am Height 62.75 inches 5'2.75" Weight 307.00 lb Heart Rate 72 /min BP Systolic 132 mmHg BP Diastolic 78 mmHg Respiratory Rate 14 /min Pain Level 10 BMI (Body Mass Index) 54.8 kg/m2 10/23/2018 2:43pm Height 62.75 inches 5'2.75" Weight 307.00 lb Heart Rate 76 /min BP Systolic 126 mmHg BP Diastolic 76 mmHg BMI (Body Mass Index) 54.8 kg/m2 Results Test Date Facility Test Result H/L Range Note Laboratory test 10/09/2018 [facility] Surgical SEE RESULT [address] Pathology BELOW [place], [place] [id number] [phone] Laboratory test 10/09/2018 [facility] Clotest SEE RESULT [address] [place] [address] [phone] Laboratory test 10/09/2018 [facility] Point of Care 119 mg/dL High 70-100 [address] [place] [address] [phone] Laboratory test 09/30/2018 [facility] Point of Care 93 mg/dL Normal 70-100 [address] Glucose [place], [place] [id number] [phone] Laboratory test 09/30/2018 [facility] Point of Care 60 mg/dL Low 70-100 [address] [place] [address] [phone] Laboratory test 09/30/2018 [facility] Point of Care 60 mg/dL Low 70-100 [address] [place] [address] [phone] CBC Auto Diff 09/30/2018 [facility] White Blood 15.1 High 3.5- 10.[address] Count 10^3/uL [place], [place] [address] [phone] Red Blood Count 5.13 10^6/uL High 3.70-4.87 [...] Sodium 139 mmol/L Normal 135-145 Panel [address] [place] [address] [phone] Potassium 3.9 mmol/L Normal 3.5-5.0 Chloride 104 [...] Egfr 82.2 >60 7 Laboratory test 09/30/2018 [facility] C Reactive 13.99 mg/L High <8.01 finding [address] [place] [address] [phone] HCG < 0.60 mIU/mL 8 Inr/Protime 09/30/2018 [facility] Inr 0.97 Normal 0.82-1.[address] [place] [address] [phone] Lipid Profile 09/17/2018 [facility] Triglycerides 173 10 (Trig/Chol/HDL) 101 mg/[place] [address] [phone] Cholesterol 128 mg/dL 11 HDL Cholesterol 34.8 mg/dL 12 LDL Cholesterol 59 mg/dL 13 Liver Function 09/17/2018 [facility] Total Protein 6.5 g/dL Normal 6.4-8.[address] [place] [address] [phone] Albumin 3.8 g/dL Normal 3.2-5.2 Globulin 2.7 g/dL Normal 2-4 Albumin/Globulin Ratio 1.4 Normal 1-3 Total Bilirubin 0.50 mg/dL Normal 0.2-1.0 Direct Bilirubin 0.10 mg/dL Normal 0.03-0.18 Indirect Bilirubin 0.4 mg/dL Normal 0.3-1.0 Alkaline Phosphatase 91 U/L Normal 34-104 Alt 14 U/L Normal 7-52 Ast 14 U/L Normal 13-39 Laboratory test 09/17/2018 [facility] Folic Acid 11.94 ng/mL >3.[address] (Folate) [place] [address] [phone] Vitamin B12 398 pg/mL Normal 180-914 15 Lyme Screen W/ Reflex To WB Negative Negative 16 Methylmalonic Acid Mma 0.20 nmol/mL <=0.40 17 Protein 09/17/2018 [facility] Total 6.5 g/dL 6.3 - Electrophoresis [address] Protein(Pep) 7.9 [place] [address] [phone] Albumin 3.0 g/dL Abnormal 3.4-4.7 Alpha-1 Globulin 0.3 g/dL 0.1-0.3 Alpha-2 Globulin 1.2 g/dL Abnormal 0.6-1.0 Beta Globulin 1.2 g/dL 0.7-1.2 Gamma Globulin 0.9 g/dL 0.6-1.6 Albumin/Globulin Ratio 0.85 Impression See Comment 18 Liver 08/17/2018 [facility] Direct Bilirubin 0.00 Low 0.03- 0.[address] mg/[place] [address] [phone] Lipid Profile 08/17/2018 [facility] Triglycerides 180 mg/dL 19 (Trig/Chol/HD [address] L) [place] [address] [phone] Cholesterol 209 mg/dL 20 HDL Cholesterol 42.0 mg/dL 21 LDL Cholesterol 131 mg/dL 22 Comp Metabolic 08/17/2018 [facility] Sodium 138 mmol/L Normal 135-[address] [place] [address] [phone] Potassium 4.5 mmol/L Normal 3.5-5.0 Chloride 103 [...] Egfr 101.0 >60 23 Lipid Panel 08/17/2018 [facility] Creatine 172 U/L Normal 10- 223 - JFM [address] Kinase(CK) [place], [place] [address] [phone] Lipid 08/02/2018 [facility] Triglycerides 208 [address] mg/dL (Trig/Chol/[place] [address] DL) [phone] Cholesterol 200 mg/dL 25 HDL Cholesterol 38.1 mg/dL 26 LDL Cholesterol 120 mg/dL 27 Comp Metabolic 08/02/2018 [facility] Sodium 136 mmol/L Normal 135-[address] [place], [place] [address] [phone] Potassium 4.4 mmol/L Normal 3.5-5.0 Chloride 103 [...] Egfr 89.4 >60 28 Laboratory test 08/02/2018 [facility] Hemoglobin A1c 9.0 % High 4.0-5.6 [address] (Glyco HGB) [place] [address] [phone] Laboratory test 06/21/2018 [facility] TSH (Thyroid 2.14 Normal 0.34-5.[address] Stim Horm) mcIU/[place] [address] [phone] Comp Metabolic 06/21/2018 [facility] Sodium 137 Normal 135- [address] mmol/[place] [address] [phone] Potassium 4.2 mmol/L Normal 3.5-5.0 Chloride 101 [...] Egfr 111.5 >60 30 Laboratory test 06/21/2018 [facility] C-Peptide 2.2 ng/mL 1.1 - 4.4 [address] [place] [address] [phone] Lipid Profile 06/21/2018 [facility] Triglycerides 186 mg/dL 32 (Trig/Chol/HDL) [address] [place] [address] [phone] Cholesterol 211 mg/dL 33 HDL Cholesterol 44.1 mg/dL 34 LDL Cholesterol 130 mg/dL 35 Laboratory test 06/21/2018 [facility] Cortisol 5.08 g/dL [address] [place] [address] [phone] Laboratory test 05/03/2018 [facility] Hemoglobin A1c 11.1 High 5-7 finding 1 SEE RESULT BELOW Name: MARYA PINA : [address]: Joshua Arita MD Acct: [id number] Unit: [id number] AGE: 38 Location: ENDO Re10/09/18 SEX: F Status: DEP REF SPEC: [id number] LAMBERTO: 10/09/18- SUBM DR: Joshua Arita MD REQ: [id number] RECD: 10/09/181054 STATUS: MARYLOU LANGFORD DR: Tuyet Alvarado HEALTH MANAGER _ ORDERED: LEVEL 4 FINAL DIAGNOSIS Stomach, [...] 1120 END OF REPORT DEPARTMENT OF PATHOLOGY, [address] [place] [address] Reese Fu M.D. Director [facility] # [id number] 2 SEE RESULT BELOW Name: MARYA PINA : [address]: Joshua Arita MD Acct: [id number] Unit: [id number] AGE: 38 Location: ENDO Re10/09/18 SEX: F Status: DEP REF SPEC: [id number] LAMBERTO: 10/09/[address] [facility] [address]: Joshua Arita MD REQ: [id number] RECD: 10/09/18 STATUS: COMP OTHR DR: Tuyet Alvarado HEALTH MANAGER _ SOURCE: GAS ANTRUM SPDESC: ORDERED: Clotest Procedure Result Reported Site Clotest Final 10/10/18- 845 ML Clotest Negative * ML - Main Lab . END OF REPORT DEPARTMENT OF PATHOLOGY, [address] [place] [address] Reese Fu M.D. Director [facility] # [id number] 3 Traveling Inventory Associate: [id number] 4 Traveling Inventory Associate: [id number] 5 Traveling Inventory Associate: [id number] 6 Traveling Inventory Associate: [id number] 7 Because ethnic data is not always [...] developed and its performance characteristics determined by [facility] in a manner consistent with CLIA requirements. This test has not been cleared or approved by the U.S. Food and Drug Administration. Test Performed by: [facility] [address] [place] [address] 18 RESULT: No apparent monoclonal protein on serum electrophoresis. Test Performed by: [facility] - [facility] [address] [place] [address] 19 Desirable: <150 Borderline High: 150-199 High: [...] in selective patients <6.0%. Please refer to [place] [employer] diabetic care guidelines for further [...] <15 (or dialysis) 31 Test Performed by: [facility] [address] [place] [address] 32 Desirable: <150 Borderline High: 150-199 High: 200-499 Very High: >500 33 Desirable: <200 Borderline High: 200-239 High: >239 34 Low: <40 Desirable: 40-60 High: >60 35 Desirable: <100 Near Optimal: 100-129 Borderline High: 130-159 High: 160-189 Very High: >189 36 AM 8.7-22.4 PM <10 Procedures Date Code Description Status 10/17/2018 45710 Inject/Drain Joint/Bursa Major W/O US Completed 08/10/2017 838118472 Diabetic Retinal Eye Exam Completed 04/25/2016 515075362 Diabetic Retinal Eye Exam Completed 01/21/2015 979374405 Diabetic Retinal Eye Exam Completed Medical Devices Description No Information Available Encounters Type Date Location Provider Dx Diagnosis Office Visit 10/10/2018 [facility] Tuyet Alvarado, M25.562 Pain in left knee 10:00a Medicine - Ccm[facility] N.P. Office Visit 09/21/2018 [facility] And Noemy Bedolla, R06.83 Snoring 9:15a [facility] J45.909 Unspecified asthma, uncomplicated F17.210 Nicotine dependence, cigarettes, uncomplicated Office Visit 09/17/2018 Damon Oconnell E11.42 Type 2 diabetes 10:00a Neurologic Bereket Billingsley mellitus with [facility] diabetic polyneuropathy G43.009 Migraine w/o aura, not intractable, w/o status migrainosus Office Visit 09/13/2018 [facility] Gastro[facility] Joshua Aguayo E66.01 Morbid 2:45p MD Juan J (severe) obesity due to excess calories E11.65 Type 2 diabetes mellitus with hyperglycemia Office 08/17/2018 [facility] Tuyet E78.00 Pure hypercholesterolemia, Visit 10:20a Medicine - Varcarlin, N.P. unspecified [facility] E11.65 Type 2 diabetes mellitus with hyperglycemia M25.569 Pain in unspecified knee M54.5 Low back pain J45.41 Moderate persistent asthma with (acute) exacerbation F17.210 Nicotine dependence, cigarettes, uncomplicated Office Visit 08/02/2018 8:40a [facility] Luis Murdock, Z79.4 [facility] (current) use of insulin E11.65 Type 2 diabetes mellitus with hyperglycemia Office Visit 06/21/2018 11:00a [facility] and Luis Murdock E11.40 Type 2 diabetes Endocrinology of MD mellitus with [facility] diabetic neuropathy, unsp E11.65 Type 2 diabetes mellitus with hyperglycemia E04.9 Nontoxic goiter, unspecified Office Visit 05/03/2018 11:20a [facility] Tuyet Alvarado, Z00.01 Encounter for Medicine - [facility] N.P. 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 10/24/2018 M25.561 Pain in right knee Ayana OliverDJessica 10/24/2018 M25.462 Effusion, left knee Nhi Hamilton M.D. 10/24/2018 M25.461 Effusion, right knee Nhi Hamilton M.D. 10/24/2018 E66.01 Morbid (severe) obesity due to excess Nhi Hamilton M.D. calories 10/24/2018 M17.0 Bilateral primary osteoarthritis of knee Nhi Hamilton M.D. 10/23/2018 E66.01 Morbid (severe) obesity due to excess Felice Billingsley M.D. calories 10/23/2018 E11.42 Type 2 diabetes mellitus with diabetic Felice Billingsley M.D. polyneuropathy 10/23/2018 G43.009 Migraine without aura, not intractable, Felice Billingsley M.D. without status migrainosus 10/17/2018 M25.562 Pain in left knee Ayana OliverDJessica 10/17/2018 M25.462 Effusion, left knee Nhi Hamilton [...] cigarettes, Tuyet Varn, N.P. uncomplicated 08/02/2018 Z79.4 [facility] (current) use of insulin Luis Murdock MD 08/02/2018 E11.65 Type 2 diabetes mellitus with hyperglycemia Luis Murdock MD 06/21/2018 E11.40 Type 2 diabetes mellitus with diabetic Luis Murdock MD neuropathy, unspecifi 06/21/2018 E11.65 Type 2 diabetes mellitus with hyperglycemia Lusi Murdock MD 06/21/2018 E04.9 Nontoxic goiter, unspecified Luis Murdock MD 05/03/2018 Z00.01 Encounter for general adult medical Tuyet Alvarado, N.P. examination with abnorma 05/03/2018 E11.40 Type [...] cigarettes, Tuyet Varn, N.P. uncomplicated 05/03/2018 Z79.4 [facility] (current) use of insulin Tuyet Varn, N.P. 05/03/2018 E66.01 Morbid (severe) obesity due to excess Tuyet Varn, N.P. calories 05/03/2018 Z68.43 Body mass index (BMI) 50-59.9, adult Tuyet Varn, N.P. 05/03/2018 G47.33 Obstructive sleep apnea (adult) (pediatric) Tuyet Varn , N.P. 05/03/2018 I89.0 Lymphedema, not elsewhere classified Tuyet Varn, N.P. Plan of Treatment Future Appointment(s):01/29/2019 11:45 am - Felice Billingsley M.D. at [facility]11/29/2018 10:30 am - Yennifer Painting NP at [facility]02/21/2019 11:00 am - Tuyet Alvarado, N.P. at [facility] Internal Medicine - [facility]11/01/2018 9:40 am - Luis Murdock MD at [facility]10/24/2018 - Nhi Hamilton M.D.M25.562 Pain in left kneeFollow up:Follow up: after testing is completed - l knee mriM25.561 Pain in right kneeM25.462 Effusion, left kneeM25.461 Effusion, right kneeNew Xrays:MRI Knee Left W/O, Ordered: 10/24/18E66.01 Morbid (severe) obesity due to excess [id number] Bilateral primary osteoarthritis of knee Functional Status Description No Information Available Mental Status Description No Information Available Referrals Refer to Reason for Referral Status Appt Nhi Hamilton MD Patient with bilateral knee pain, particularly Sent 2018 left, referred for evaluation and treatment. Thank you for seeing this very pleasant patient. [address] [facility] [address] [place], [place] [address] [phone] Luis Murdock MD Patient with uncontrolled diabetes referred for Sent 2018 management. [address] [facility] [address] [place] [address] [phone] [facility] Patient with uncontrolled diabetes Closed Living and morbid obesity referred for possible weight loss surgery. [address] [facility] [address] [place] [address] [phone]
--- OUTSIDE RECORDS SUMMARY | 2018-12-17 14:13 | XMS REPORT | Continuity of Care Document ---
:1980 External Reference #:[id number] Author Name Felicia ETHAN Hunt Address [address] [facility] [place] [address] Care Team Providers Name Role Phone Tuyet Alvarado NP - Obstetrics & Care Team Information [employer] [phone] Gynecology Problems Active Problems Provider Date Pain [...] po qd Unknown 10mg [place] Ventolin HFA Denice AlvaradoLORI gold 108(90Base) mcg/Act Aerosol SM Aspirin Adult Low Strength Tuyet Alvarado NP 81mg Tablets DR Ranitidine HCL Take One Tablet By Unknown 150mg Tablets Mouth Twice A Day Ipratropium Central/Albuterol Tuyet Alvarado NP Sulfate 0.5-2.5(3)mg/3ML Solution Hydrochlorothiazide Tuyet Alvarado NP 25mg Tablets Advair Diskus Unknown 500-50mcg/Dose Aerosol Fluoxetine HCL Unknown 20mg Capsules Fluticasone Propionate Unknown 50mcg/Act Suspension Metformin HCL ER Unknown 500mg Tablets ER 24HR Montelukast Sodium Unknown 10mg Tablets Ramipril Unknown 5mg Capsules Immunizations CPT Code Status Date Vaccine Lot # [id number] Refused 03/21/2017 Influenza Vaccine [id number] Vital Signs Date Vital Result Comment 10/18/2018 [...] Available Procedures Date Code Description Status 10/18/2018 12251 Duplex Scan Extremity Veins, Unilateral Or Limited Study Completed 10/15/2018 49547 Therapeutic, Prophylactic Or Diagnostic Injection Subq/Im Completed 10/15/2018 14090 Endovenous Laser Therapy Completed Medical Devices Description [...] veins of right lower extremity with Felicia Gilbert [facility] other complicat 10/18/2018 G89.18 Other acute postprocedural pain Feliciaaleida Hunt [facility] 10/18/2018 Z86.72 Personal history of thrombophlebitis Felicia Gilbert [facility] 10/18/2018 Z68.43 Body mass index (BMI) 50-59.9, adult Felicia Hunt 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 RIGHT LEG SURGERY Created [address] [facility] [place] [place] [address] [place] [address] [phone]
[2018-12-17 15:18] LABS: ABS Eosinophils 0.3 10^3/ul (0-0.6); ABS Lymphocytes 4.1 10^3/ul (1.0-4.8); ABS Monocytes 0.8 10^3/ul (0-0.8); ABS Neutrophils 10.7 10^3/ul (1.5-7.7); Eosinophil % 2.1 %; Hematocrit 43 % (35-47); Hemoglobin 14.2 g/dL (12.0-16.0); Lymphocyte % 25.7 %; Mean Corpuscular HGB Conc 33 g/dL (31-36); Mean Corpuscular Hemoglobin 28 pg (27-31); Mean Corpuscular Volume 84 fL (80-97); Mean Platelet Volume 7.6 fL (7.4-10.4); Platelet Count 405 10^3/uL (150-450); Red Cell Distribution Width 15 % (10-15); White Blood Count 15.9 10^3/uL (3.5-10.8)
[2018-12-17 15:32] LABS: Activated Partial Thrombo Time 41.7 seconds (26.0-38.0); INR 1.33 (0.82-1.09)
[2018-12-17 15:35] LABS: ALT 12 U/L (7-52); AST 13 U/L (13-39); Albumin 3.9 g/dL (3.2-5.2); Albumin/Globulin Ratio 1.3 (1-3); Alkaline Phosphatase 83 U/L (34-104); Anion Gap 5 mmol/L (2-11); BUN/Creatinine Ratio 22.2 (8-20); Blood Urea Nitrogen 18 mg/dL (6-24); CO2 Carbon Dioxide 30 mmol/L (22-32); Calcium 9.1 mg/dL (8.6-10.3); Chloride 106 mmol/L (101-111); EGFR African American 95.2 (>60); EGFR Non-African American 78.7 (>60); Globulin 3.1 g/dL (2-4); Magnesium 1.9 mg/dL (1.9-2.7); Potassium 3.2 mmol/L (3.5-5.0); Sodium 141 mmol/L (135-145)
[2018-12-17 15:41] LABS: HCG Pregnancy < 0.60 mIU/mL
[2018-12-17] MEDS ORDERED: Iodixanol* (CONTRAST) 320 MG/ML 100 ML SDV IV ONE (15:44)
--- NOTE | 2018-12-17 15:52 | ED ---
Lower Extremity - HPI Summary HPI Summary: Pt is a 38 y/o F presenting to the ED with a hx of a blood clot. She was previously on Xarelto, which her ferry captain stopped. She was instead placed on Aspirin. She was getting an echocardiogram done today, which showed a 3cm mass inside the IVC, and another mobile mass inside of the R atria concerning for thrombus. Her ferry captain placed her back on Xarelto, gave her one dose in office, and advised her to come here for a CTA of her chest and bilateral DVT. Per the pt, she states she has had a blood clot in her leg, and her Xarelto was stopped about 2 years ago after taking it for less than 6 months. She was going for a stress test and stress echo to clear her for surgery tomorrow. She denies CP, N/V, or BOSE. She notes shes been more fatigued/short of breath on exertion recently, and noted a feeling of heart flutter recently. Pt also told RYLEE Locke, that she has been experiencing pain in the back of her bilateral legs intermittently for the last 7 years. - History of Current Complaint Chief Complaint: EDGeneral Stated Complaint: BLOOD CLOT IN PT'S HEART PER NURSE Time Seen by Provider: 12/17/18 13:54 Hx Obtained From: Patient Hx Last Menstrual Period: one week ago Mechanism Of Injury: Unknown Onset of Pain: Hours Onset/Duration: Still Present Severity Currently: None Pain Intensity: 0 Pain Scale Used: 0-10 Numeric Timing: Constant Location: Is Diffuse Associated Signs And Symptoms: Positive: Negative Aggravating Factor(s): Nothing Alleviating Factor(s): Nothing Able to Bear Weight: Yes - Allergies/Home Medications Allergies/Adverse Reactions: Allergies Allergy/AdvReac Type Severity Reaction Status Date / Time hydrocodone Allergy Intermediate Rash And Verified 12/17/18 13:17 Itching latex Allergy Intermediate Rash And Verified 12/17/18 13:17 Itching Home Medications: Home Medications Albuterol HFA INHALER* [Ventolin HFA Inhaler*] 2 puff INH QID 12/17/18 [History Confirmed 12/17/18] Benzonatate CAP* [Tessalon 100 MG CAP*] 200 mg PO TID PRN 12/17/18 [History Confirmed 12/17/18] Cholecalciferol TAB* [Vitamin D TAB*] 50,000 units PO WEEKLY 12/17/18 [History Confirmed 12/17/18] Insulin REGULAR(TPN)* 30 units SUBCUT TID AC 12/17/18 [History Confirmed ] Rivaroxaban TAB(*) [Xarelto 15 mg(*)] 15 mg PO BID 12/17/18 [History Confirmed 12/17/18] PMH/Surg Hx/FS Hx/Imm Hx Previously Healthy: Yes Endocrine/Hematology History: Reports: Hx Diabetes - type 2 Denies: Hx Anticoagulant Therapy - DVT and VIII (von willebrand), Hx Thyroid Disease Cardiovascular History: Reports: Hx Hypertension Denies: Hx Angina, Hx Pacemaker/ICD Respiratory History: Reports: Hx Asthma - uses nebulizer treatments PRN, Other Respiratory Problems/Disorders - allergic rhinits, smoker Denies: Hx Chronic Obstructive Pulmonary Disease (COPD) GI History: Reports: Hx Gall Bladder Disease - s/p cholecystectomy 2004 History: Denies: Hx Renal Disease Musculoskeletal History: Reports: Other Musculoskeletal History - H/o rib fx - no residual Sensory History: Denies: Hx Contacts or Glasses, Hx Hearing Aid Opthamlomology History: Denies: Hx Contacts or Glasses Neurological History: Denies: Hx Dementia, Hx Seizures Psychiatric History: Reports: Hx Depression Denies: Hx Panic Disorder, Hx Substance Abuse - Surgical History Surgery Procedure, Year, and Place: 1993 tonsils, 2003 , 2004 cholecystectomy, 2012 complete tooth extraction (uppers & lowers). 05/31/17 vein Infectious Disease History: No Infectious Disease History: Denies: Hx Clostridium Difficile, Hx Hepatitis, Hx Human Immunodeficiency Virus (HIV), Hx of Known/Suspected MRSA, Hx Shingles, Hx Tuberculosis, Hx Known/ Suspected VRE, Hx Known/Suspected VRSA, History Other Infectious Disease, Traveled Outside the [place] in Last 30 Days - Family History Known Family History: Positive: Cardiac Disease, Other - Positive FMHx for URI Negative: Hypertension, Diabetes - Social History Alcohol Use: None Hx Substance Use: No Substance Use Type: Reports: Marijuana Hx Tobacco Use: Yes Smoking Status (MU): Heavy Every Day Tobacco Smoker Amount Used/How Often: 1 pack /day Have You Smoked in the Last Year: Yes Review of Systems Positive: Fatigue. Negative: Fever Positive: Palpitations. Negative: Chest Pain Positive: Shortness Of Breath Negative: Vomiting, Nausea Positive: Myalgia Negative: Headache All Other Systems Reviewed And Are Negative: Yes Physical Exam - Summary Physical Exam Summary: Constitutional: Well-developed, Well-nourished, Alert. (-) Distressed Skin: Warm, Dry HENT: Normocephalic; Atraumatic Eyes: Conjunctiva normal Neck: Musculoskeletal ROM normal neck. (-) JVD, (-) Stridor, (-) Tracheal deviation Cardio: Rhythm regular, rate normal, Heart sounds normal; Intact distal pulses; The pedal pulses are 2+ and symmetric. Radial pulses are 2+ and symmetric. Can hear S1 S2, somewhat distant probably because of habitus. Pulses intact. Pulmonary/Chest wall: Very faint wheezing at the end of the expiratory phase. On forced exhalation, it is more obvious. Abd: Soft, (-) tenderness, (-) Distension, (-) Guarding, (-) Rebound Musculoskeletal: No bony tenderness of L knee. Some varicosities to bilateral LE. No significant edema. Neuro: Alert, Oriented x3 Psych: Mood and affect Normal Triage Information Reviewed: Yes Vital Signs On Initial Exam: Initial Vitals Temp Pulse Resp BP Pulse Ox 97.4 F 73 18 126/83 100 12/17/18 13:14 12/17/18 13:14 12/17/18 13:14 12/17/18 13:14 12/17/18 13:14 Vital Signs Reviewed: Yes Procedures - Sedation Patient Received Moderate/Deep Sedation with Procedure: No Diagnostics - Vital Signs Vital Signs Temp Pulse Resp BP Pulse Ox 12/17/18 15:11 74 15 100 12/17/18 14:37 13 12/17/18 13:14 97.4 F 73 18 126/83 100 - Laboratory Lab Results: Lab Results 12/17/18 12/17/18 12/17/18 Range/Units 15:06 15:06 15:06 WBC 15.9 H (3.5-10.8) 10^3/uL RBC 5.10 H (3.70-4.87) 10^6 /uL Hgb 14.2 (12.0-16.0) g/dL Hct 43 (35-47) % MCV 84 (80-97) fL MCH 28 (27-31) pg MCHC 33 (31-36) g/dL RDW 15 (10-15) % Plt Count 405 (150-450) 10^3/uL MPV 7.6 (7.4-10.4) fL Neut % (Auto) 66.9 % Lymph % (Auto) 25.7 % [place] % (Auto) 5.1 % Eos % (Auto) 2.1 % Baso % (Auto) 0.2 % Absolute Neuts (auto) 10.7 H (1.5-7.7) 10^3/ul Absolute Lymphs (auto) 4.1 (1.0-4.8) 10^3/ul Absolute Monos (auto) 0.8 (0-0.8) 10^3/ul Absolute Eos (auto) 0.3 (0-0.6) 10^3/ul Absolute Basos (auto) 0.0 (0-0.2) 10^3/ul Absolute Nucleated RBC 0.0 10^3/ul Nucleated RBC % 0.0 INR (Anticoag Therapy) 1.33 H (0.82-1.09) APTT 41.7 H (26.0-38.0) seconds Sodium 141 (135-145) mmol/L Potassium 3.2 L (3.5-5.0) mmol/L Chloride 106 (101-111) mmol/L Carbon Dioxide 30 (22-32) mmol/L Anion Gap 5 (2-11) mmol/L BUN 18 (6-24) mg/dL Creatinine 0.81 (0.51-0.95) mg/dL Est GFR ( Amer) 95.2 (>60) Est GFR (Non-Af Amer) 78.7 (>60) BUN/Creatinine Ratio 22.2 H (8-20) Glucose Pending Calcium 9.1 (8.6-10.3) mg/dL Magnesium 1.9 (1.9-2.7) mg/dL Total Bilirubin 0.30 (0.2-1.0) mg/dL Direct Bilirubin 0.00 L (0.03-0.18) mg/dL Indirect Bilirubin Vessel Liner AST 13 (13-39) U/L ALT 12 (7-52) U/L Alkaline Phosphatase 83 (34-104) U/L Troponin I 0.00 (<0.04) ng/mL Total Protein 7.0 (6.4-8.9) g/dL Albumin 3.9 (3.2-5.2) g/dL Globulin 3.1 (2-4) g/dL Albumin/Globulin Ratio 1.3 (1-3) Lipase 18 (11.0-82.0) U/L Beta HCG, Quant < 0.60 mIU/mL Result Diagrams: 12/17/18 15:06 12/17/18 15:06 Lab Statement: Any lab studies that have been ordered have been reviewed, and results considered in the medical decision making process. - CT CTA Chest/Thorax CT Interpretation Completed By: Radiologist Summary of CT Findings: 1. NO PULMONARY ARTERIAL FILLING DEFECT TO SUGGEST PULMONARY EMBOLISM. 2. THERE IS A FILLING DEFECT WITHIN THE RIGHT ATRIUM MEASURING UP TO 2.5 CM IN SIZE. THIS IS CONSISTENT WITH THE HISTORY OF RIGHT ATRIAL THROMBUS, THOUGH RIGHT ATRIAL NEOPLASM MAY GIVE A SIMILAR APPEARANCE. 3. THERE IS A CONTRAST ADMINISTRATION IS NONDIAGNOSTIC FOR EVALUATION OF THE SYSTEMIC VENOUS CIRCULATION. THERE IS CALCIFICATION ALONG THE HEPATIC PORTION OF THE INFERIOR VENA CAVA WHICH MAY REFLECT CHRONIC THROMBOSIS. THESE FINDINGS ARE NOT SEEN ON PREVIOUS CT EXAMINATION OF 2013. 4. LEFT NEPHROLITHIASIS. ED physician has reviewed this report. - Ultrasound Venous Doppler Study Ultrasound Interpretation Completed By: Radiologist Summary of Ultrasound Findings: 1. LIMITED STUDY. 2. DIMINISHED FLOW WITHIN ONE BRANCH OF THE RIGHT POSTERIOR TIBIAL VEIN WHICH MAY INDICATE NONOCCLUSIVE CALF VEIN THROMBUS. THERE IS NO THROMBUS NOTED WITHIN THE RIGHT LOWER EXTREMITY ABOVE THE CALF. 3. NO LEFT LOWER EXTREMITY DEEP VEIN THROMBOSIS. ED physician has reviewed this report. Lower Extremity Course/Dx - Course Course Of Treatment: Pt is a 38 y/o F presenting to the ED with a hx of a blood clot. She was getting an echocardiogram done today, which showed a 3cm mass inside the IVC, and another mobile mass inside of the R atria concerning for thrombus. Per the pt, she states she has had a blood clot in her leg, and her Xarelto was stopped about 2 years ago after taking it for less than 6 months. She was going for a stress test and stress echo to clear her for surgery tomorrow. She denies CP, N/V, or BOSE. She notes shes been more fatigued/short of breath on exertion recently, and noted a feeling of heart flutter recently. Pt also told RYLEE Locke, that she has been experiencing pain in the back of her bilateral legs intermittently for the last 7 years. On exam, pt has very faint wheezing at the end of the expiratory phase. On forced exhalation, it is more obvious. She also has no bony tenderness of L knee, some varicosities to bilateral LE. No significant edema. Pts lab results show WBC of 15.9, RBC of 5.10, INR of 1.33, APTT of 41.7, Potassium of 3.2. Venous Doppler Study shows: 1. LIMITED STUDY. 2. DIMINISHED FLOW WITHIN ONE BRANCH OF THE RIGHT POSTERIOR TIBIAL VEIN WHICH MAY INDICATE NONOCCLUSIVE CALF VEIN THROMBUS. THERE IS NO THROMBUS NOTED WITHIN THE RIGHT LOWER EXTREMITY ABOVE THE CALF. 3. NO LEFT LOWER EXTREMITY DEEP VEIN THROMBOSIS. CTA Chest/Thorax shows: 1. NO PULMONARY ARTERIAL FILLING DEFECT TO SUGGEST PULMONARY EMBOLISM. 2. THERE IS A FILLING DEFECT WITHIN THE RIGHT ATRIUM MEASURING UP TO 2.5 CM IN SIZE. THIS IS CONSISTENT WITH THE HISTORY OF RIGHT ATRIAL THROMBUS, THOUGH RIGHT ATRIAL NEOPLASM MAY GIVE A SIMILAR APPEARANCE. 3. THERE IS A CONTRAST ADMINISTRATION IS NONDIAGNOSTIC FOR EVALUATION OF THE SYSTEMIC VENOUS CIRCULATION. THERE IS CALCIFICATION ALONG THE HEPATIC PORTION OF THE INFERIOR VENA CAVA WHICH MAY REFLECT CHRONIC THROMBOSIS. THESE FINDINGS ARE NOT SEEN ON PREVIOUS CT EXAMINATION OF 2013. 4. LEFT NEPHROLITHIASIS. I spoke with Dr. Funez at 1730 who states that based on what I told him about the pt, there is no other tx that is needed in the ED, as the pt already has a script for the Xarelto. He would still like her to follow up with him for the TTE tomorrow. He also states that the pt does have factor 5 leiden. She will be d/c'ed with dx of coagulopathy, factor 5 leiden, and acute mural thrombus. Prior to discharge , we will be giving the patient a dose of her Xarelto to be taken in the morning , as she is having issues with her insurance pre-authorizing the Xarelto. She has received her evening dose and will be given another tablet to take in the morning. - Diagnoses Provider Diagnoses: Coagulopathy, Factor V Leiden, Mural thrombus of right atrium Discharge ED - Sign-Out/Discharge Documenting (check all that apply): Patient Departure - Discharge Plan Condition: Stable Disposition: HOME Patient Education Materials: Rivaroxaban (By mouth), Hypercoagulation (ED) Referrals: Karla Rcih MD [Primary Care Provider] - Ronald Funez DO [Medical Doctor] - Additional Instructions: Follow up as scheduled with Dr. Funez tomorrow. - Billing Disposition and Condition Condition: STABLE Disposition: Home - Attestation Statements Document Initiated by Viridianaibe: Yes Documenting Scribe: Jasmine Ko Provider For Whom Samanthae is Documenting (Include Credential): Iker García MD. Scribe Attestation: I, Jasmine Ko, scribed for Iker García MD. on 12/17/18 at 1856. Scribe Documentation Reviewed: Yes Provider Attestation: The documentation as recorded by the viridianaibe, Jasmine Ko accurately reflects the service I personally performed and the decisions made by me, Iker García MD. Status of Scribe Document: Viewed Consult Consult: I spoke with Dr. Funez at 1730 who states that based on what I told him about the pt, there is no other tx that is needed in the ED, as the pt already has a script for the Xarelto. He would still like her to follow up with him for the TTE tomorrow. He also states that the patient does have factor 5 leiden.
[2018-12-17 16:05] LABS: Glucose 48 mg/dL (70-100)
[2018-12-17] MEDS ORDERED: Rivaroxaban TAB(*) 15 MG PO ONE (17:42)
[2018-12-17 18:05] VITALS: BP 102/54
== END 2018-12-17 18:04 | disposition home or self-care (01) ==
LOC: ED 13:06
DX: I21.9 Acute myocardial infarction, unspecified (principal); D68.9 Coagulation defect, unspecified; D68.51 Activated protein C resistance; N20.0 Calculus of kidney; E11.9 Type 2 diabetes mellitus without complications; I10 Essential (primary) hypertension; J45.909 Unspecified asthma, uncomplicated; F17.200 Nicotine dependence, unspecified, uncomplicated; Z86.718 Personal history of other venous thrombosis and embolism; Z90.49 Acquired absence of other specified parts of digestive tract; Z79.4 Long term (current) use of insulin; Z79.01 Long term (current) use of anticoagulants; Z79.82 Long term (current) use of aspirin; Z79.899 Other long term (current) drug therapy
CPT/HCPCS: 36415; 71275; 80048; 80076; 83690; 83735; 84484; 84702; 85025; 85610; 85730; 93970; 99283; Q9967

== ENCOUNTER 2019-01-02 11:46 | Emergency (ER) | payer OTHER ==
--- OUTSIDE RECORDS SUMMARY | 2019-01-02 12:39 | XMS REPORT | Continuity of Care Document ---
:1980 External Reference #:[id number] Author Name Alfonso Torres MD (transmitted by agent of provider Shea Hernandez) Address [address] [place] [address] Care Team Providers Name Role Phone Galo Fritz MD - Ophthalmology Care Team Information [employer] Ronald Nunez MD - Surgery Care Team Information [employer] [phone] Karla Rich MD - Internal Care Team Information [employer] Teacher [facility] Lili Herrera FNP-e - Family Care Team Information [employer] [facility] - Care Team Information [employer] Acid Remover Yennifer Naylor M.D. - Surgery of Care Team Information [employer] [phone] the Hand Problems Active Problems Provider Date [...] Use Regularly uses Marijuana Smoking Status Reviewed: 12/27/18 Heavy tobacco smoker (more than 10 cigarettes/day) Exercise Type/Frequency Exercises sporadically Allergies, Adverse Reactions, Alerts Active Allergies Reaction Severity Comments Date Hydrocodone Pt states she itch all over. 05/21/2012 Latex itchy and rash 08/17/2015 Inactive Allergies NKDA 05/12/2011 Medications Active Medications SIG Qnty Indications Ordering Date Provider Nicorette 1 piece of gum 220units [place] 4mg Gum every 2 - 4 Varn, N.P. 9 hours. not more than 24 per day Xarelto 1 by mouth twice 42tabs Ronald SJessica 15mg Tablets daily DO Armin 9 FACC Adjust Bath/Shower Seat 62" 307lbs dx: 1units Nhi Hamilton, Misc left knee M.D. 9 meniscus tear, left knee pain Vitamin D Take 1 Tablet By 4caps Tuyet (Ergocalciferol) Mouth Once A Week Varn, N.P. 9 [id number] For 8 Weeks Capsules Tylenol With Codeine #3 1 tablet by mouth 21tabs M25.562 Tuyet every 8 hours as Varn, N.P. 9 300-30mg Tablets needed cough Topiramate 1 po qhs 30tabs G43.009 Felice S. 100mg Tablets Bereket Billnigsley 9 Lyrica take two caps by 120caps G62.9 Felice SJessica 50mg Capsules mouth twice a Bereket Billingsley 9 day. brand name necessary. code c Atorvastatin Calcium take 1 tablet by 90tabs E78.00 [place] 20mg mouth at bedtime Varn, N.P. 9 Tablets Advair Diskus inhale 1 dose by 60units J45.41 [place] 500-50mcg/Dose mouth twice daily Varn, N.P. 9 Aerosol (not taking) Humulin N 35 units QHS or 20ml E11.65 [facility], 100Unit/ML Suspension as directed, ANASTASIA Blake 60 Humulin R 30 units tid-ac 50ml [facility], 100Unit/ML Solution or as directed, MD Hayden OCONNOR 180 Ozempic Hold On File, 1mg 3ml E1165 [facility], 1mg/Dose Solution injection once MD Blake Pen-Inject weekly, hold on file for second month Onetouch Ultrasoft use to test blood 300units [facility], Lancets glucose three MD Blake Misc times a day and as needed Onetouch Verio test four times 150units [facility], Strips daily and as MD Blake needed Insulin Syringe/0.5ML/30G 4 times daily for 150units E11.40 [facility], X 1/2" insulin MD Blake 30G X 1/2" 0.[address] [facility] Blood Glucose Monitoring test blood sugars 1units E11.65 [place] System once fasting and Varn, N.P. 9 W/Device Kit 2 hours after dinner meal Blood Glucose Test test blood sugar 100units E11.65 [place] Strips fasting in in the Varn, N.P. 9 morning and 2 hours after dinner meal Lancet Device use when testing 100units E11.65 [place] Misc blood gluose Varn, N.P. 9 Pantoprazole Sodium Take One Tablet 30tabs [place] 20mg By Mouth Every Varn, N.P. [address] Day Mucinex twice a day as 20tabs J20.9 [place] 600mg Tablets ER 12HR needed Varn, N.P. 8 Ranitidine HCL Take One Tablet 60tabs Shane Anderson, 150mg Tablets By Mouth Twice A [employer] 8 Day Hydrochlorothiazide take 1/2 by mouth 30tabs Ronald Kourtney 25mg daily Funez, DO 8 Tablets FACC Glucose Meter Test Strips for use 3-4 times 100units [place] Advanced daily Varn, N.P. 8 Strips Nebulizer use three times a 1units [place] Kit/Tubing/Mouthpiece day as needed Varn, N.P. 8 Kit Fluoxetine HCL Take One Capsule 30caps F43.23 [place] 20mg Capsules By Mouth Every Varn, N.P. 8 Day Montelukast Sodium Take One Tablet 30tabs J45.41 [place] 10mg Tablets By Mouth Every Varn, N.P. 7 Day Freestyle Lancets test up to 2 300units [place] Misc times a day or as Varn, N.P. 7 needed Metformin HCL ER Take 4 Tablets By 120tabs E11.65 [place] 500mg Tablets Mouth With Dinner Varn, N.P. 7 ER 24HR Fluconazole Take 1 Tablet By 2tabs [place] 150mg Tablets Mouth Then May Varn, N.P. 7 Repeat In 3 Days as Needed Simethicone 1 by mouth after 30caps R19.7 [place] 180mg Capsules each meal as Varn, N.P. 7 needed Ventolin HFA Inhale Two Puffs 18units [place] 108(90Base) By Mouth Four Varn, N.P. 6 mcg/Act Aerosol Times A Day as Needed Freestyle Lite Blood check fingerstick 1units E11.65 [place] Glucose Monitoring System three times daily Varn, N.P. 6 or as needed, DX Device - E11.65 Nebulizer use three times a 1units J20.9 [place] Device day as needed Varn, N.P. 6 Ipratropium inhale the 180units J20.9 [place] Imboden/Albuterol Sulfate contents of one Varn, N.P. 6 vial via 0.5-2.5(3)mg/3ML Solution nebulizer three times a day as needed for asthma Senna Laxative 1 tab by mouth 15tabs K59.00 Noemy 25mg Tablets 1-2 times as MD Graeme 6 needed Compression Stockings knee high 2units I80.02 [place] Misc stockings 20 - 30 Varn, N.P. 6 mm Cetirizine HCL 1 by mouth every 30tabs J30.9 [place] 10mg Tablets day Varn, N.P. 6 Ramipril Take One Capsule 30caps I10 [place] 5mg Capsules By Mouth Every Varn, N.P. 5 Day Fluticasone Propionate [place] One [place]bury 16units [place] In Each Nostril Varn, N.P. 4 50mcg/Act Suspension Every Day as Needed Nebulizer J45.909 Cristina Garcia, Compressor/Dualfilter/7' M.D. 3 Tubing/Aerosol T/Mthpiece Kit Methocarbamol 1 by mouth twice Unknown 0000/000 Tablets a day as needed 0 for spasm History Medications Benzonatate one by mouth 30caps J06.9 Tuyet Varn, 12/13/2018 - 200mg three times N.P. 12/27/2018 Capsules daily as needed for cough Diclofenac Sodium apply 4 gms to 100gm M25.562 Tuyet Castrejonn, 10/10/2018 - both knees every N.P. 10/11/2018 1% Gel 6 hours as needed pain Tramadol [...] 120caps G62.9 Felice Oconnell 09/17/2018 - 25mg night at bedtime Bereket Billingsley 09/17/2018 Capsules for 1 week then 1 twice a day for 1 week then 2 twice a day mdd 4 Ibuprofen 1 by mouth every 90tabs M54.5 Tuyet Alvarado, 08/17/2018 - 600mg 6 hours as N.P. 12/18/2018 Tablets needed for pain Humulin 70/30 50 units Am, 30 30ml E11.65 Luis Murdock MD 08/02/2018 - Kwikpen units PM, MDD 08/07/2018 100 (70-30)100Unit/ML Supn Pen [place] 1/2" use 1 pen needle 100units E11.65 Luis Murdock MD 2018 - 3 times daily 08/07/2018 29G X 12mm Misc with insulin and Ozempic Ozempic inject 0.25mg 1.500ml E11.40 Luis Murdock MD 07/09/2018 - 0.25or 0.5 weekly for 2 08/02/2018 mg/Dose Solution weeks, then Pen-Inject increase to 0.5mg weekly Medications Administered in Office Medication SIG Qnty Indications Ordering Provider Date Depomedrol 40MG Alfonso Torres MD 11/22/2018 Injection Depomedrol 40MG SHAMIKA Villarreal 11/21/2018 Injection Depomedrol 40MG Nhi Hamilton M.D. 10/17/2018 Injection Records Fee Tuyet Alvarado N.P. 08/29/2018 Injection Immunizations CPT Code Status Date Vaccine Lot # [id number] Given 10/04/2016 Tdap - Tetanus/Diptheria/Acellular Pertussis [id number] Given 01/20/2015 Flu Vaccine Split Virus Preservative Free For [id number] Indiv [id number] Older [id number] Given 05/21/2012 Pneumonia Vaccine [id number] Vital Signs Date Vital Result Comment 12/27/2018 9:10am Height 63 inches 5'3" Weight 291.00 lb Heart Rate 72 /min BP Systolic 138 mmHg BP Diastolic 82 mmHg Respiratory Rate 18 /min Body Temperature 97.0 F Pain Level 0 BMI (Body Mass Index) 51.5 kg/m2 12/26/2018 8:44am Height 63 inches 5'3" Weight 291.00 lb with shoes Heart Rate 68 /min BP Systolic Sitting 110 mmHg lue large cuff BP Diastolic Sitting 70 mmHg lue large cuff BP Systolic Standing 94 mmHg lue large cuff BP Diastolic Standing 60 mmHg lue large cuff Respiratory Rate 14 /min BMI (Body Mass Index) 51.5 kg/m2 Ejection Fraction 55-60% echo. 12/17/18 Results Test Date Facility Test Result H/L Range Note Laboratory test 12/18/2018 [facility] Point of Care 112 mg/dL High 70-[address] [place] [address] [phone] Laboratory test 12/17/2018 [facility] Point of Care 124 mg/dL High 70-100 [address] [place] [address] [phone] CBC Auto Diff 12/17/2018 [facility] White Blood 15.9 10^3/uL High 3.5-10.[address] [place] [address] [phone] Red Blood Count 5.10 10^6/uL High 3.70-4.87 Hemoglobin 14.2 g/dL Normal 12.0-16.0 Hematocrit 43 % Normal 35-47 Mean Corpuscular Volume 84 fL Normal 80-97 Mean Corpuscular Hemoglobin 28 pg Normal 27-31 Mean Corpuscular HGB Conc 33 g/dL Normal 31-36 Red Cell Distribution Width 15 % Normal 10-15 Platelet Count 405 10^3/uL Normal 150-450 Mean Platelet Volume 7.6 fL Normal 7.4-10.4 Abs Neutrophils 10.7 10^3/uL High 1.5-7.7 Abs Lymphocytes 4.1 10^3/uL Normal 1.0-4.8 Abs Monocytes 0.8 10^3/uL Normal 0-0.8 Abs Eosinophils 0.3 10^3/uL Normal 0-0.6 Abs Basophils 0.0 10^3/uL Normal 0-0.2 Abs Nucleated RBC 0.0 10^3/uL Granulocyte % 66.9 % Lymphocyte % 25.7 % Monocyte % 5.1 % Eosinophil % 2.1 % Basophil % 0.2 % Nucleated Red Blood Cells % 0.0 Inr/Protime 12/17/2018 [facility] Inr 1.33 High 0.82-1.[address] [place], [place] [phone] Laboratory test 12/17/2018 [facility] Partial 41.7 High 26.0- 38.[address] [place] [address] Time PTT [phone] Basic Metabolic 12/17/2018 [facility] Sodium 141 mmol/L Normal 135-[address] [place] [address] [phone] Potassium 3.2 mmol/L Low 3.5-5.0 Chloride 106 mmol/L Normal 101-111 Co2 Carbon Dioxide 30 mmol/L Normal 22-32 Anion Gap 5 mmol/L Normal 2-11 Blood Urea Nitrogen 18 mg/dL Normal 6-24 Creatinine 0.81 mg/dL Normal 0.51-0.95 BUN/Creatinine Ratio 22.2 High 8-20 Calcium 9.1 mg/dL Normal 8.6-10.3 Egfr Non- 78.7 >60 Egfr 95.2 >60 4 Glucose 48 mg/dL Critical low 70-100 5 Liver Function 12/17/2018 [facility] Total Protein 7.0 g/dL Normal 6.4-8.[address] [place] [address] [phone] Albumin 3.9 g/dL Normal 3.2-5.2 Globulin 3.1 g/dL Normal 2-4 Albumin/Globulin Ratio 1.3 Normal 1-3 Total Bilirubin 0.30 mg/dL Normal 0.2-1.0 Direct Bilirubin 0.00 mg/dL Low 0.03-0.18 Alkaline Phosphatase 83 U/L Normal 34-104 Alt 12 U/L Normal 7-52 Ast 13 U/L Normal 13-39 Laboratory test 12/17/2018 [facility] Magnesium 1.9 mg/dL Normal 1.9-2.[address] [place] [address] [phone] Lipase 18 U/L Normal 11.0-82.0 Troponin-I (TnI) 0.00 ng/mL <0.04 6 HCG < 0.60 mIU/mL 7 Urine Culture And 11/28/2018 [facility] Urine Culture SEE RESULT 8, [address] [place] [address] [phone] Ua Routine 11/28/2018 [facility] House Ua Specific 1.020 [place] Ua PH 5 Ua Color dark yellow Ua Appera cloudy Ua WBC trace Ua Protein trace Ua Glucose normal Ua Ketones negative Ua Bilirubin + Ua Urobilinogen normal Ua Nitrite + Ua Occult Blood negative Urinalysis Profile 11/22/2018 [facility] Urine Color Yellow [address] [place] [address] [phone] Urine Appearance Cloudy Urine Specific [place] 1.022 Normal 1.010-1.030 Urine pH 5.0 Normal 5-9 Urine Urobilinogen Negative Negative Urine Ketones Negative Negative Urine Protein Negative Negative Urine Leukocytes Negative Negative Urine Blood Negative Negative Urine Nitrite Negative Negative Urine Bilirubin Negative Negative Urine Glucose 3+(>=500 mg/dL) Abnormal Negative Inr/Protime 11/22/2018 [facility] Inr 0.95 Normal 0.82-1.[address] [place] [address] [phone] Laboratory test 11/22/2018 [facility] Partial 31.5 Normal 26.0 -38.[address] [place] [address] Time PTT [phone] CBC Auto Diff 11/22/2018 [facility] White Blood 15.3 High 3.5- 10.[address] Count 10^3/[place] [address] [phone] Red Blood Count 5.06 10^6/uL High 3.70-4.87 [...] % Nucleated Red Blood Cells % 0.0 GC/Chlamydia 11/22/2018 [facility] Chlamydia Negative Negative Amplified Rna [address] [place] [address] [phone] Neisseria gonorrhoeae (GC) Abby Negative Negative Laboratory 11/22/2018 [facility] Syphillis Negative Negative test finding [address] Igg W/[place] [address] RPR [phone] HIV 1&2 p24 11/22/2018 [facility] HIV 4th Nonreactive Nonreactive Screen [address] [place] [address] [phone] Laboratory 11/20/2018 [facility] Hemoglobin 7.3 % High 4.0- 5.6 11 test finding [address] A1c ([place] [address] HGB) [phone] Comp 11/20/2018 [facility] Sodium 139 mmol/L Normal 135-[address] [place] [address] [phone] Potassium 4.1 mmol/L Normal 3.5-5.0 Chloride 106 [...] >60 Egfr 82.2 >60 12 Laboratory test 10/09/2018 [facility] Surgical SEE RESULT [address] [place] [address] [phone] Laboratory test 10/09/2018 [facility] Clotest SEE RESULT [address] [place] [address] [phone] Laboratory test 10/09/2018 [facility] Point of Care 119 mg/dL High 70-10 [address] Glucose 0 [place] [address] [phone] Laboratory test 09/30/2018 [facility] Point of Care 93 mg/dL Normal 70-10 [address] Glucose 0 [place] [address] [phone] Laboratory test 09/30/2018 [facility] Point of Care 60 mg/dL Low 70-10 [address] Glucose 0 [place], [place] [address] [phone] Laboratory test 09/30/2018 [facility] Point of Care 60 mg/dL Low 70-10 [address] Glucose 0 [place], [place] [address] [phone] CBC Auto Diff 09/30/2018 [facility] White Blood 15.1 High 3.5- [address] Count 10^3/uL 0.8 [place], [place] [address] [phone] Red Blood Count 5.13 10^6/uL High 3.70-4.87 [...] Blood Cells % 0.0 Comp Metabolic 09/30/2018 [facility] Sodium 139 mmol/L Normal 135-[address] [place] [address] [phone] Potassium 3.9 mmol/L Normal 3.5-5.0 Chloride 104 [...] Egfr Non- 68.0 >60 Egfr 82.2 >60 19 Laboratory test 09/30/2018 [facility] C Reactive 13.99 mg/L High <8.[address] [place] [address] [phone] HCG < 0.60 mIU/mL 20 Inr/Protime 09/30/2018 [facility] Inr 0.97 Normal 0.82-1.[address] [place] [address] [phone] Lipid Profile 09/17/2018 [facility] Triglycerides 173 22 (Trig/Chol/HDL) [address] mg/[place] [address] [phone] Cholesterol 128 mg/dL 23 HDL Cholesterol 34.8 mg/dL 24 LDL Cholesterol 59 mg/dL 25 Protein 09/17/2018 [facility] Total 6.5 g/dL 6.3 - Electrophoresis [address] Protein(Pep) 7.9 [place] [address] [phone] Albumin 3.0 g/dL Abnormal 3.4-4.7 Alpha-1 Globulin 0.3 g/dL 0.1-0.3 Alpha-2 Globulin 1.2 g/dL Abnormal 0.6-1.0 Beta Globulin 1.2 g/dL 0.7-1.2 Gamma Globulin 0.9 g/dL 0.6-1.6 Albumin/Globulin Ratio 0.85 Impression See Comment 26 Laboratory test 09/17/2018 [facility] Folic Acid 11.94 ng/mL >3.99 27 finding 101 (Folate) [place] [address] [phone] Vitamin B12 398 pg/mL Normal 180-914 28 Lyme Screen W/ Reflex To WB Negative Negative 29 Methylmalonic Acid Mma 0.20 nmol/mL <=0.40 30 Liver Function 09/17/2018 [facility] Total Protein 6.5 g/dL Normal 6.4-8.[address] [place] [address] [phone] Albumin 3.8 g/dL Normal 3.2-5.2 Globulin 2.7 g/dL Normal 2-4 Albumin/Globulin Ratio 1.4 Normal 1-3 Total Bilirubin 0.50 mg/dL Normal 0.2-1.0 Direct Bilirubin 0.10 mg/dL Normal 0.03-0.18 Indirect Bilirubin 0.4 mg/dL Normal 0.3-1.0 Alkaline Phosphatase 91 U/L Normal 34-104 Alt 14 U/L Normal 7-52 Ast 14 U/L Normal 13-39 Liver 08/17/2018 [facility] Direct Bilirubin 0.00 Low 0.03- 0.[address] mg/[place] [address] [phone] Lipid Profile 08/17/2018 [facility] Triglycerides 180 mg/dL 31 (Trig/Chol/HD [address] L) [place] [address] [phone] Cholesterol 209 mg/dL 32 HDL Cholesterol 42.0 mg/dL 33 LDL Cholesterol 131 mg/dL 34 Comp Metabolic 08/17/2018 [facility] Sodium 138 mmol/L Normal 135-[address] [place] [address] [phone] Potassium 4.5 mmol/L Normal 3.5-5.0 Chloride 103 [...] Egfr Non- 83.5 >60 Egfr 101.0 >60 35 Lipid Panel 08/17/2018 [facility] Creatine 172 U/L Normal 10- 223 - JFM [address] Kinase(CK) [place], [place] [address] [phone] Lipid 08/02/2018 [facility] Triglycerides [address] mg/dL (Trig/Chol/[place] [address] DL) [phone] Cholesterol 200 mg/dL 37 HDL Cholesterol 38.1 mg/dL 38 LDL Cholesterol 120 mg/dL 39 Comp Metabolic 08/02/2018 [facility] Sodium 136 mmol/L Normal 135-[address] [place] [address] [phone] Potassium 4.4 mmol/L Normal 3.5-5.0 Chloride 103 [...] Egfr Non- 73.8 >60 Egfr 89.4 >60 40 Laboratory test 08/02/2018 [facility] Hemoglobin A1c 9.0 % High 4.0-5.[address] (Glyco HGB) [place] [address] [phone] 1 Stove Carriage Operator: [id number] Stove Carriage Operator: [id number] 3 Standard intensity warfarin therapeutic range: 2.0-3.0 High intensity warfarin therapeutic range: 2.5-3.5 4 Because ethnic data is not always readily [...] 15-29 5 Kidney failure <15 (or dialysis) 5 Critical Result GLU:48 Called to [id number] at: 16:02:31 by:[id number] Read back by:[id number] 6 Troponin-I testing on Plasma Separator Tubes (PST) has a known false positive rate of 0.20-0.40%. All positive troponins reflex immediately to secondary confirmatory testing. Using the [employer] DxI 800 Access Immunoassay systems, the 99th percentile upper reference limit was demonstrated to be < 0.03 ng/mL. 7 <5.0 Negative 5.0 - 25.0 Indeterminate (Repeat testing recommended after 72 hours) >25.0 Positive Perimenopausal women can display HCG levels of up to 20 mIU/mL 8 [id number] 9 SEE RESULT BELOW Name: MARYA PINA Jana : [address]: Kaylah Villanueva NP Acct: [id number] Unit: [id number] AGE: 38 Location: [facility] Re11/28/18 SEX: F Status: REG REF SPEC: [id number] LAMBERTO: 11/28/18-[address]: Kaylah Villanueva NP REQ: [id number] RECD: 11/28/18 STATUS: COMP _ SOURCE: URINE SPDESC: ORDERED: Urine Culture COMMENTS: [id number] Urine Source: Random Procedure Result Reported Site Urine Culture Final 11/29/18- 1609 ML No growth of clinically significant organisms * ML - Main Lab . END OF REPORT DEPARTMENT OF PATHOLOGY, [address] [place] [address] Reese Fu M.D. Director [facility] # [id number] 10 Standard intensity warfarin therapeutic range: 2.0-3.0 High intensity warfarin therapeutic range: 2.5-3.5 11 Therapeutic target for the treatment of diabetes mellitus patients is <7% HBA1C, and in selective patients <6.0%. Please refer to [place] [employer] diabetic care guidelines for further [...] 5 Kidney failure <15 (or dialysis) 13 SEE RESULT BELOW Name: MARYA PINA : [address]: Joshua Arita MD Acct: [id number] Unit: [id number] AGE: 38 Location: ENDO Re10/09/18 SEX: F Status: DEP REF SPEC: [id number] LAMBEROT: 10/09/18- [facility] DR: Joshua Arita MD REQ: [id number] RECD: 10/09/18 STATUS: MARYLOU LANGFORD DR: Tuyet Alvarado [employer] _ ORDERED: LEVEL 4 FINAL DIAGNOSIS Stomach, [...] 1120 END OF REPORT DEPARTMENT OF PATHOLOGY, [address] [place] [address] Reese Fu M.D. Director [facility] # [id number] 14 SEE RESULT BELOW Name: SILVANAMARYA Jana : [address]: Joshua Arita MD Acct: [id number] Unit: [id number] AGE: 38 Location: ENDO Re10/09/18 SEX: F Status: DEP REF SPEC: [id number] LAMBERTO: 10/09/18-09[address] [facility] [address]: Joshua Arita MD REQ: [id number] RECD: 10/09/18 STATUS: EDUARDO LANGFORD DR: Tuyet Alvarado [employer] _ SOURCE: [facility]AS [facility]: ORDERED: Clotest Procedure Result Reported Site Clotest Final 10/10/18- 845 ML Clotest Negative * ML - Main Lab . END OF REPORT DEPARTMENT OF PATHOLOGY, [address] [place] [address] Reese Fu M.D. Director [facility] # [id number] 15 Stove Carriage Operator: [id number] Stove Carriage Operator: [id number] Stove Carriage Operator: [id number] 18 Stove Carriage Operator: [id number] 19 Because ethnic data is not always [...] 5 Kidney failure <15 (or dialysis) 20 <5.0 Negative 5.0 - 25.0 Indeterminate (Repeat testing recommended after 72 hours) >25.0 Positive Perimenopausal women can display HCG levels of up to 20 mIU/mL 21 Standard intensity warfarin therapeutic range: 2.0-3.0 High intensity warfarin therapeutic range: 2.5-3.5 22 Desirable: <150 Borderline High: 150-199 High: 200-499 Very High: >500 23 Desirable: <200 Borderline High: 200-239 High: >239 24 Low: <40 Desirable: 40-60 High: >60 25 Desirable: <100 Near Optimal: 100-129 Borderline High: 130-159 High: 160-189 Very High: >189 26 RESULT: No apparent monoclonal protein on serum electrophoresis. Test Performed by: [facility] [address] [place] [address] 27 accidently received on batch 18. but specimen was not sent with batch 18. 28 Normal Range 180 to 914 Indeterminate Range 145 to 180 Deficient Range <145 29 accidently received on batch 18. but specimen was not sent with batch 18. 30 ADDITIONAL INFORMATION This test was developed and its performance characteristics determined by [facility] in a manner consistent with CLIA requirements. This test has not been cleared or approved by the U.S. Food and Drug Administration. Test Performed by: [facility] - [address] [address] 31 Desirable: <150 Borderline High: 150-199 High: [...] 5 Kidney failure <15 (or dialysis) 36 Desirable: <150 Borderline High: 150-199 High: 200-499 Very High: >500 37 Desirable: <200 Borderline High: 200-239 High: >239 38 Low: <40 Desirable: 40-60 High: >60 39 Desirable: <100 Near Optimal: 100-129 Borderline High: 130-159 High: 160-189 Very High: >189 40 Because ethnic data is not always readily [...] 15-29 5 Kidney failure <15 (or dialysis) 41 Therapeutic target for the treatment of diabetes mellitus patients is <7% HBA1C, and in selective patients <6.0%. Please refer to [employer] [employer] diabetic care guidelines for further information. Procedures Date Code Description Status 12/18/2018 67164 Color Flow Doppler/Interp & Reprt Completed 12/18/2018 51546 Pulse Wave/Continuous-Interp.RPT Completed 12/18/2018 41659 Echocardiography, Transesophageal, Real Time W/Image Completed 2D W/W/O M-M 12/17/2018 97353 ECHO Transthorasic Realtime 2D W Doppler & Color Flow Completed Hosp 11/30/2018 54885 EKG Tracing & Interpretation Completed 11/22/2018 72755 EKG Tracing & Interpretation Completed 11/22/2018 15088 Inject/Drain Joint/Bursa Major W/O US Completed 11/21/2018 12948 Inject Tendon Sheath Or Ligament Aponeurosis Eg Completed Plantar Fascia 11/13/2018 68763 Polysomnography Sleep Staging 4+ Parameters Completed 10/17/2018 77097 Inject/Drain Joint/Bursa Major W/O US Completed 10/09/2018 19400 Endoscopy Upper GI Biopsy Completed 08/10/2017 [id number] Diabetic Retinal Eye Exam Completed 04/25/2016 [id number] Diabetic Retinal Eye Exam Completed 01/21/2015 [id number] Diabetic Retinal Eye Exam Completed Medical Devices Description No Information Available Encounters Type Date Location Provider Dx Diagnosis Office Visit 12/27/2018 [facility] Alfonso F S46.011D Strain of 9:45a at Matheus Torres MD musc/tend the rotator cuff of right shoulder, subs M75.51 Bursitis of right shoulder Office Visit 12/19/2018 2:15p [facility] D15.1 [facility] 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, not elsewhere classified Z72.0 Tobacco use E11.69 Type 2 diabetes mellitus with other specified complication E66.8 Other obesity Office Visit 12/13/2018 9:40a [facility] Tuyet Alvarado, J06.9 Acute upper Medicine - N.P. respiratory Ccmob infection, unspecified M17.0 Bilateral primary osteoarthritis of knee E11.65 Type 2 diabetes mellitus with hyperglycemia E66.01 Morbid (severe) obesity due to excess calories Office Visit 11/30/2018 [place] Ronald Oconnell Z01.810 [facility] FAC cardiovascular examination M17.10 Unilateral primary osteoarthritis, unspecified knee R06.02 Shortness of breath R94.31 Abnormal electrocardiogram [ECG] [EKG] Z72.0 Tobacco use Z68.43 Body mass index (BMI) 50.0-59.9, adult E66.8 Other obesity E11.9 Type 2 diabetes mellitus without complications I10 Essential (primary) hypertension E78.5 Hyperlipidemia, unspecified Office Visit 11/28/2018 11:40a [facility] Kaylah Villanueva, R35.0 Frequency of Medicine - Ccmob [employer] micturition E11.65 Type 2 diabetes mellitus with hyperglycemia Office Visit 11/22/2018 1:30p [facility] Alfonso Smith S46.011A Strain of Orthopedics at [facility] Brian musc/tend the [place] rotator cuff of right shoulder, init M75.51 Bursitis of right shoulder Office Visit 11/22/2018 10:40a [facility] Tuyet Alvarado, Z01.818 Encounter for other Medicine - N.P. 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 knee M25.462 Effusion, left knee E66.01 Morbid (severe) obesity due to excess calories M17.0 Bilateral primary osteoarthritis of knee S83.242A Oth tear of medial meniscus, current injury, left knee, init Office Visit 10/24/2018 9:45a [facility] Nhi Alfonso, M25.562 Pain in left at [place] M.D. knee M25.561 Pain in right knee M25.462 Effusion, left knee M25.461 Effusion, right knee E66.01 Morbid (severe) obesity due to excess calories M17.0 Bilateral primary osteoarthritis of knee M23.8x2 Other internal derangements of left knee Office Visit 10/23/2018 2:30p [facility] Pawan Oconnell E66.01 Morbid ( severe) Services Of Chalino Billingsley M.D. obesity due to excess calories E11.42 Type 2 diabetes mellitus with diabetic polyneuropathy G43.009 Migraine w/o aura, not intractable, w/o status migrainosus Office Visit 10/17/2018 11:15a [facility] Nhi Hamilton, M25.562 Pain in left at [place] M.D. knee M25.462 Effusion, left knee M17.12 Unilateral primary osteoarthritis, left knee Z68.43 Body mass index (BMI) 50.0-59.9, adult E66.01 Morbid (severe) obesity due to excess calories Office Visit 10/10/2018 10:00a [facility] Tuyet Alvarado, M25.562 Pain in left Medicine - Ccmob N.P. knee Office Visit 09/21/2018 9:15a Pulmonology And Noemy Bedolla, R06.83 Snoring Sleep Services Of [facility] Allred J45.909 Unspecified asthma, uncomplicated F17.210 Nicotine dependence, cigarettes, uncomplicated Office Visit 09/17/2018 [facility] E11.42 Type 2 diabetes 10:00a Neurologic Bereket Billingsley mellitus with Services Of [facility] diabetic polyneuropathy G43.009 Migraine w/o aura, not intractable, w/o status migrainosus Office Visit 09/13/2018 [facility] Gastroenterology Joshua Aguayo E66.01 Morbid 2:45p [facility] Juan J (severe) obesity due to excess calories E11.65 Type 2 diabetes mellitus with hyperglycemia Office 08/17/2018 [facility] Tuyet E78.00 Pure hypercholesterolemia, Visit 10:20a Medicine - Varn, N.P. unspecified Ccmob E11.65 Type 2 diabetes mellitus with hyperglycemia M25.569 Pain in unspecified knee M54.5 Low back pain J45.41 Moderate persistent asthma with (acute) exacerbation F17.210 Nicotine dependence, cigarettes, uncomplicated Office Visit 08/02/2018 8:40a [facility] Smith Coch, Z79.4 care home Endocrinology of [facility] (current) use of insulin E11.65 Type 2 diabetes mellitus with hyperglycemia Assessments Date Code Description Provider 12/27/2018 S46.011D Strain of muscle(s) and tendon(s) of the Alfonso Torres MD rotator cuff of right shoulder, subsequent encounter 12/27/2018 M75.51 Bursitis of right shoulder Alfonso Torres MD 12/26/2018 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 Ronald Funez, DO FACC 12/26/2018 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, not elsewhere Ronald Funez, DO FACC classified 12/26/2018 E11.69 Type 2 diabetes mellitus with other Ronald Funez, DO FACC specified complication 12/26/2018 Z72.0 Tobacco use Ronald Funez, DO FACC 12/26/2018 E66.8 Other obesity Ronald Funez, DO FACC 12/19/2018 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 unspecified 12/13/2018 M17.0 Bilateral primary osteoarthritis of knee Tuyet Varn, N.P. 12/13/2018 E11.65 Type 2 diabetes mellitus with Tuyet Varn, N.P. hyperglycemia 12/13/2018 E66.01 Morbid (severe) obesity due to excess Tuyet Varn, N.P. calories 12/12/2018 M17.10 Unilateral primary osteoarthritis, Nhi Hmailton M.D. unspecified knee 12/12/2018 M25.562 Pain in left knee Nhi Hamilton M.D. 12/12/2018 M23.8x2 Other internal derangements of left knee Nhi Hamilton M.D. 11/30/2018 Z01.810 Encounter for preprocedural Ronald Funez, DO [facility] cardiovascular examination 11/30/2018 M17.10 Unilateral primary osteoarthritis, Ronald Funez, DO [facility] unspecified knee 11/30/2018 R06.02 Shortness of breath Ronald Funez, DO [facility] 11/30/2018 R94.31 Abnormal electrocardiogram [ECG] [EKG] Ronald Funez, DO [facility] 11/30/2018 Z72.0 Tobacco use Ronald Funez, DO [facility] 11/30/2018 Z68.43 Body mass index (BMI) 50.0-59.9, adult Ronald Funez, DO [facility] 11/30/2018 E66.8 Other obesity Ronald Funez, DO [facility] 11/30/2018 E11.9 Type 2 diabetes mellitus without Ronald Funez, [facility] complications 11/30/2018 I10 Essential (primary) hypertension Ronald Funez, DO [facility] 11/30/2018 E78.5 Hyperlipidemia, unspecified Ronald Funez, DO [facility] 11/28/2018 R35.0 Frequency of micturition Johanofia Rich, [employer] 11/28/2018 E11.65 Type 2 diabetes mellitus with Zsofia Rich, [employer] hyperglycemia 11/22/2018 R94.31 Abnormal electrocardiogram [ECG] [EKG] Christina Dunlap MD 11/22/2018 S46.011A Strain of muscle(s) and tendon(s) of the Alfonso Torres MD rotator cuff of right shoulder, initial encounter 11/22/2018 Z01.818 Encounter for other preprocedural Tuyet Alvarado, N.P. examination 11/22/2018 M75.51 Bursitis of right shoulder Alfonso Torres MD 11/22/2018 S83.242A Other tear of medial meniscus, current Tuyet Varn, N.P. injury, left knee, initial encounter 11/22/2018 E11.42 Type 2 diabetes mellitus with diabetic Tuyet Alvarado, N.P. polyneuropathy 11/22/2018 Z68.43 Body mass index (BMI) 50.0-59.9, adult Tuyet Castrejonn, N.P. 11/22/2018 E78.5 Hyperlipidemia, unspecified Tuyet Varn, N.P. 11/22/2018 J45.40 Moderate persistent asthma, Tuyet Varn, N.P. uncomplicated 11/22/2018 R94.31 Abnormal electrocardiogram [ECG] [EKG] Tuyet Castrejonn, N.P. 11/22/2018 Z11.3 Encounter for screening for infections Tuyet Alvarado, N.P. with a predominantly sexual mode of transmission 11/22/2018 D68.9 Coagulation defect, unspecified Tuyet Varn, N.P. 11/21/2018 G56.03 Carpal tunnel syndrome, bilateral upper Gabrielle Bitting, RPA-C limbs 11/21/2018 M65.311 Trigger thumb, right thumb Gabrielle Bitting, RPA-C 11/20/2018 E11.42 Type 2 diabetes mellitus with diabetic Luis Murdock MD polyneuropathy 11/20/2018 M25.562 Pain in left knee Luis Murdock MD 11/20/2018 Z79.4 care home (current) use of insulin Luis Murdock MD 11/20/2018 E78.5 Hyperlipidemia, unspecified Luis Murdock MD 11/14/2018 M25.562 Pain in left knee Nhi Hamilton M.D. 11/14/2018 M25.462 Effusion, left knee hNi Hamilton M.D. 11/14/2018 E66.01 Morbid (severe) obesity due to excess Nhi Hamilton M.D. calories 11/14/2018 M17.0 Bilateral primary osteoarthritis of knee Nhi Hamilton M.D. 11/14/2018 S83.242A Other tear of medial meniscus, current Nhi Hamilton M.D. injury, left knee, initial encounter 11/13/2018 G47.33 Obstructive sleep apnea (adult) Noemy Bedolla MD (pediatric) 10/24/2018 M25.562 Pain in left knee Nhiedwar Hamilton M.DJessica 10/24/2018 M25.561 Pain in right knee Nhi Hamilton M.D. 10/24/2018 M25.462 Effusion, left knee Nhiedwar Hamilton M.DJessica 10/24/2018 M25.461 Effusion, left knee Nhi Hamilton M.D. 10/24/2018 E66.01 Morbid (severe) obesity due to excess Nhi Hamilton M.D. calories 10/24/2018 M17.0 Bilateral primary osteoarthritis of knee Parvin Oliver.DJessica 10/24/2018 M23.8x2 Other internal derangements of left knee Nhi Hmailton M.D. 10/23/2018 E66.01 Morbid (severe) obesity due to excess Felice Billingsley M.D. calories 10/23/2018 E11.42 Type 2 diabetes mellitus with diabetic Felice Billingsley M.D. polyneuropathy 10/23/2018 G43.009 Migraine without aura, not intractable, Felice Billingsley M.D. without status migrainosus 10/17/2018 M25.562 Pain in left knee Parvin Oliver.DJessica 10/17/2018 M25.462 Effusion, left knee Nhi Hamilton M.D. 10/17/2018 M17.12 Unilateral primary osteoarthritis, left Nhi Hamilton M.D. knee 10/17/2018 Z68.43 Body mass index (BMI) 50.0-59.9, adult Nhi Hamilton M.D. 10/17/2018 E66.01 Morbid (severe) obesity due to excess Nhi Hamilton M.D. calories 10/10/2018 M25.562 Pain in left knee Tuyet Alvarado N.P. 10/09/2018 Z01.818 Encounter for other preprocedural [...] N.P. exacerbation 08/17/2018 F17.210 Nicotine dependence, cigarettes, Tuyte Varn, N.P. uncomplicated 08/02/2018 Z79.4 care home (current) use of insulin Luis Murdock MD 08/02/2018 E11.65 Type 2 diabetes mellitus with Luis Murdock MD hyperglycemia Plan of Treatment Future Appointment(s):02/07/2019 8:45 am - Alfonso Torres MD at [facility] at Lzguxf0001/08/2019 8:40 am - Ronald Funez DO FACC at [place] [facility]01/01/2019 3:00 pm - Yennifer Painting NP at [facility]02/20/2019 9:00 am - Luis Murdock MD at [facility]01/29/2019 11:45 am - Felice Billingsley M.D. at [facility]02/21/2019 11:00 am - Tuyet Alvarado N.P. at [facility] Internal Medicine - [facility]12/27/2018 - Alfonso Torres, MDS46.011D Strain of muscle(s) and tendon(s) of the rotator cuff of right shoulder, subsequent encounterFollow up:Follow up: 6 weeks Please print out again her PT prescription for the lbhauwpsR67.51 Bursitis of right shoulder Functional Status Description No Information Available Mental Status Description No Information Available Referrals Refer to Dr Reason for Referral Status Appt Date Ronald Funez DO, [facility] Patient is a 38 year old morbidly obese [place] woman with diabetes, hypertension, and asthma. Her EKG is abnormal. I have referred her for cardiac evaluation. Thank you for seeing this complex patient. [address] [place] [address] [phone] Irving Quiroga MD diabetic neuropathy [place] [address] [place] [address] [phone] Yennifer Naylor M.D. bilateral CTS [place] [address] [place] [address] [phone] Nhi Hamilton MD Patient with bilateral knee pain, particularly [place] 2018 left, referred for evaluation and treatment. Thank you for seeing this very pleasant patient. [address] [place] [address] [phone]
--- OUTSIDE RECORDS SUMMARY | 2019-01-02 12:39 | XMS REPORT | Continuity of Care Document ---
:1980 External Reference #:[id number] Author Name Ronald Funez DO FAC (transmitted by agent of provider Harini Gaston) Address [address] [place] [address] Care Team Providers Name Role Phone Galo Fritz MD - Ophthalmology Care Team Information Slot Editor [phone] Ronald Nunez MD - Surgery Care Team Information Slot Editor [phone] Karla Rich MD - Internal Care Team Information Slot Editor [facility] Lili Herrera FNP-Cde - Family Care Team Information Slot Editor [facility] - Care Team Information Slot Editor Commercial Instructor Supervisor Yennifer Naylor M.D. - Surgery of Care Team Information Slot Editor the Hand Problems Active Problems Provider Date [...] Use Regularly uses Marijuana Smoking Status Reviewed: 12/26/18 Heavy tobacco smoker (more than 10 cigarettes/day) Exercise Type/Frequency Exercises sporadically Allergies, Adverse Reactions, Alerts Active Allergies Reaction Severity Comments Date Hydrocodone Pt states she itch all over. 05/21/2012 Latex itchy and rash 08/17/2015 Inactive Allergies NKDA 05/12/2011 Medications Active Medications SIG Qnty Indications Ordering Date Provider Nicorette 1 piece of gum 220units Tuyet 4mg Gum every 2 - 4 Varn, N.P. 9 hours. not more than 24 per day Xarelto 1 by mouth twice 42tabs Ronald S. 15mg Tablets daily DO Armin 9 FACC Benzonatate one by mouth 30caps J06.9 Tuyet 200mg Capsules three times daily Varn, N.P. 9 as needed for cough Adjust Bath/Shower Seat 62" 307lbs dx: 1units Nhi Hamilton, Misc left knee M.D. 9 meniscus tear, left knee pain Vitamin D Take 1 Tablet By 4caps [place] (Ergocalciferol) Mouth Once A Week Varn, N.P. 9 [id number] For 8 Weeks Capsules Tylenol With Codeine #3 1 tablet by mouth 21tabs M25.562 [place] every 8 hours as Varn, N.P. 9 300-30mg Tablets needed cough Topiramate 1 po qhs 30tabs G43.009 Felice S. 100mg Tablets Bereket Billingsley 9 Lyrica take two caps by 120caps G62.9 Felice Oconnell 50mg Capsules mouth twice a Bereket Billingsley 9 day. brand name necessary. code c Atorvastatin Calcium take 1 tablet by 90tabs E78.00 [place] 20mg mouth at bedtime Varn, N.P. 9 Tablets Advair Diskus inhale 1 dose by 60units J45.41 [place] 500-50mcg/Dose mouth twice daily Varn, N.P. 9 Aerosol (not taking) Humulin N 35 units QHS or 20ml E11.65 Smith [facility], 100Unit/ML Suspension as directed, ANASTASIA Blake 60 Humulin R 30 units tid-ac 50ml Smith [facility], 100Unit/ML Solution or as directed, MD Blake MDD 180 Ozempic Hold On File, 1mg 3ml E1165 Smith [place], 1mg/Dose Solution injection once MD [...] Syringe/0.5ML/30G 4 times daily for 150units E11.40 [facility] Mathieu, X 1/2" insulin MD Blake 30G X 1/2" 0.5 ML [facility] Blood Glucose Monitoring test blood sugars 1units E11.65 [place] System once fasting and Varn, N.P. 9 W/Device Kit 2 hours after dinner meal Blood Glucose Test test blood sugar 100units E11.65 [place] Strips fasting in in the Varn, N.P. 9 morning and 2 hours after dinner meal Lancet Device use when testing 100units E11.65 [place] Misc blood gluose Varn, N.P. 9 Pantoprazole Sodium Take One Tablet 30tabs Tuyet 20mg By Mouth Every Varn, N.P. [address] Day Mucinex twice a day as 20tabs J20.9 [place] 600mg Tablets ER 12HR needed Varn, N.P. 8 Ranitidine HCL Take One Tablet 60tabs Shane Monica, 150mg Tablets By Mouth Twice A SPARK PLUG TESTER 8 Day Hydrochlorothiazide take 1/2 by mouth 30tabs Ronald S. 25mg daily Funez DO 8 Tablets FACC Glucose Meter Test Strips for use 3-4 times 100units [place] Advanced daily Varn, N.P. 8 Strips Nebulizer use three times a 1units [place] Kit/Tubing/Mouthpiece day as needed Varn, N.P. 8 Kit Fluoxetine HCL Take One Capsule 30caps F43.23 [place] 20mg Capsules By Mouth Every Varn, N.P. 8 Day Montelukast Sodium Take One Tablet 30tabs J45.41 [place] 10mg Tablets By Mouth Every Varn, N.P. 7 Day Freestyle Lancets test up to 2 300units [place] Misc times a day or as Varn, N.P. 7 needed Metformin HCL ER Take 4 Tablets By 120tabs E11.65 [place] 500mg Tablets Mouth With Dinner Varn, N.P. 7 ER 24HR Fluconazole Take 1 Tablet By 2tabs [place] 150mg Tablets Mouth Then May Varn, N.P. 7 Repeat In 3 Days as Needed Simethicone 1 by mouth after 30caps R19.7 [place] 180mg Capsules each meal as Varn, N.P. 7 needed Ventolin HFA Inhale Two Puffs 18units [place] 108(90Base) By Mouth Four Varn, N.P. 6 mcg/Act Aerosol Times A Day as Needed Freestyle Lite Blood check fingerstick 1units E11.65 [place] Glucose Monitoring System three times daily Varn, N.P. 6 or as needed, DX Device - E11.65 Nebulizer use three times a 1units J20.9 [place] Device day as needed Varn, N.P. 6 Ipratropium inhale the 180units J20.9 [place]/Albuterol Sulfate contents of one Varn, N.P. 6 vial via 0.5-2.5(3)mg/3ML Solution nebulizer three times a day as needed for asthma Senna Laxative 1 tab by mouth 15tabs K59.00 Noemy 25mg Tablets 1-2 times as MD Graeme 6 needed Cetirizine HCL 1 by mouth every 30tabs J30.9 [place] 10mg Tablets day Varn, N.P. 6 Compression Stockings knee high 2units I80.02 [place] Misc stockings 20 - 30 Varn, N.P. 6 mm Ramipril Take One Capsule 30caps I10 [place] 5mg Capsules By Mouth Every Varn, N.P. 5 Day Fluticasone Propionate [place] One [place] 16units [place] In Each Nostril Varn, N.P. 4 50mcg/Act Suspension Every Day as Needed Nebulizer J45.909 Cristina Garcia, Compressor/Dualfilter/7' M.D. 3 Tubing/Aerosol T/Mthpiece Kit Methocarbamol 1 by mouth twice Unknown 00/00/000 Tablets a day as needed 0 for spasm History Medications Diclofenac Sodium apply 4 gms to 100gm M25.562 Tuyet Varn, 10/10/2018 - both knees every N.P. 10/11/2018 [...] PM, MDD 08/07/2018 100 (70-30)100Unit/ML Supn Pen Hamilton /2" use 1 pen needle 100units E11.65 Luis Murdock MD 2018 - 3 times daily 08/07/2018 29G X 12mm Misc with insulin and Ozempic Ozempic inject 0.25mg 1.500ml E11.40 Luis Murdock MD 07/09/2018 - 0.25or weekly for 2 08/02/2018 0.5 mg/Dose weeks, then Solution increase to Pen-Inject 0.5mg weekly Medications Administered in Office Medication SIG Qnty Indications Ordering Provider Date Depomedrol 40MG Alfonso Torres MD 11/22/2018 Injection Depomedrol 40MG SHAMIKA Villarreal 11/21/2018 Injection Depomedrol 40MG Nhi Hamilton M.D. 10/17/2018 Injection Records Fee Tuyet Alvarado N.P. 08/29/2018 Injection Immunizations CPT Code Status Date Vaccine Lot # [id number] Given 10/04/2016 Tdap - Tetanus/Diptheria/Acellular Pertussis [id number] Given 01/20/2015 Flu Vaccine Split Virus Preservative Free For [id number] Indiv [id number] Older 16468 Given 05/21/2012 Pneumonia Vaccine [id number] Vital Signs Date Vital Result Comment 12/26/2018 8:44am Height 63 inches 5'3" Weight 291.00 lb with shoes Heart Rate 68 /min BP Systolic Sitting 110 mmHg lue large cuff BP Diastolic Sitting 70 mmHg lue large cuff BP Systolic Standing 94 mmHg lue large cuff BP Diastolic Standing 60 mmHg lue large cuff Respiratory Rate 14 /min BMI (Body Mass Index) 51.5 kg/m2 Ejection Fraction 55-60% echo. 12/17/18 12/19/2018 1:26pm Height 63 inches 5'3" Weight 289.00 lb with shoes Heart Rate 70 /min BP Systolic Sitting 94 mmHg Lue lg cuff BP Diastolic Sitting 50 mmHg Lue lg cuff BP Systolic Standing 100 mmHg Lue lg cuff BP Diastolic Standing 70 mmHg Lue lg cuff Respiratory Rate 16 /min BMI (Body Mass Index) 51.2 kg/m2 Ejection Fraction 55-60% date 12/17/18 ECHO Results Test Date Facility Test Result H/L Range Note Laboratory test 12/18/2018 [facility] Point of Care 112 mg/dL High 70-100 [address] [place] [address] [phone] Laboratory test 12/17/2018 [facility] Point of Care 124 mg/dL High 70-100 [address] [place] [address] [phone] CBC Auto Diff 12/17/2018 [facility] White Blood 15.9 10^3/uL High 3.5-10.[address] [place] [address] [phone] Red Blood Count 5.10 10^6/uL High 3.70-4.87 [...] Red Blood Cells % 0.0 Inr/Protime 12/17/2018 [facility] Inr 1.33 High 0.82-1.[address] [place] [address] [phone] Laboratory test 12/17/2018 [facility] Partial 41.7 High 26.0- 38.[address] [place] [address] Time PTT [phone] Basic Metabolic 12/17/2018 [facility] Sodium 141 mmol/L Normal 135-[address] [place] [address] [phone] Potassium 3.2 mmol/L Low 3.5-5.0 Chloride 106 mmol/L Normal 101-111 Co2 Carbon Dioxide 30 mmol/L Normal 22-32 Anion Gap 5 mmol/L Normal 2-11 Blood Urea Nitrogen 18 mg/dL Normal 6-24 Creatinine 0.81 mg/dL Normal 0.51-0.95 BUN/Creatinine Ratio 22.2 High 8-20 Calcium 9.1 mg/dL Normal 8.6-10.3 Egfr Non- 78.7 >60 Egfr 95.2 >60 4 Glucose 48 mg/dL Critical low 70-100 5 Liver Function 12/17/2018 [facility] Total Protein 7.0 g/dL Normal 6.4-8.9 Panel [address] [place] [address] [phone] Albumin 3.9 g/dL Normal 3.2-5.2 Globulin 3.1 g/dL Normal 2-4 Albumin/Globulin Ratio 1.3 Normal 1-3 Total Bilirubin 0.30 mg/dL Normal 0.2-1.0 Direct Bilirubin 0.00 mg/dL Low 0.03-0.18 Alkaline Phosphatase 83 U/L Normal 34-104 Alt 12 U/L Normal 7-52 Ast 13 U/L Normal 13-39 Laboratory test 12/17/2018 [facility] Magnesium 1.9 mg/dL Normal 1.9-2.7 finding [address] [place] [address] [phone] Lipase 18 U/L Normal 11.0-82.0 Troponin-I (TnI) 0.00 ng/mL <0.04 6 HCG < 0.60 mIU/mL 7 Urine Culture And 11/28/2018 [facility] Urine Culture SEE RESULT 8, [address] [place] [address] [phone] Ua Routine 11/28/2018 [facility] House Ua Specific 1.020 [place] Ua PH 5 Ua Color dark yellow Ua Appera cloudy Ua WBC trace Ua Protein trace Ua Glucose normal Ua Ketones negative Ua Bilirubin + Ua Urobilinogen normal Ua Nitrite + Ua Occult Blood negative Urinalysis Profile 11/22/2018 [facility] Urine Color Yellow [address] [place], [place] [id number] [phone] Urine Appearance Cloudy Urine Specific [place] 1.022 Normal 1.010-1.030 Urine pH 5.0 Normal 5-9 Urine Urobilinogen Negative Negative Urine Ketones Negative Negative Urine Protein Negative Negative Urine Leukocytes Negative Negative Urine Blood Negative Negative Urine Nitrite Negative Negative Urine Bilirubin Negative Negative Urine Glucose 3+(>=500 mg/dL) Abnormal Negative Inr/Protime 11/22/2018 [facility] Inr 0.95 Normal 0.82-1.[address] [place], [place] [address] [phone] Laboratory test 11/22/2018 [facility] Partial 31.5 Normal 26.0 -38.[address] [place] [address] Time PTT [phone] CBC Auto Diff 11/22/2018 [facility] White Blood 15.3 High 3.5- 10.[address] Count 10^3/uL [place], [place] [address] [phone] Red Blood Count 5.06 10^6/uL High 3.70-4.87 [...] Red Blood Cells % 0.0 GC/Chlamydia 11/22/2018 [facility] Chlamydia Negative Negative Amplified Rna [address] trachomatis Abby [place], [place] [address] [phone] Neisseria gonorrhoeae (GC) Abby Negative Negative Laboratory 11/22/2018 [facility] Syphillis Negative Negative test finding [address] Igg W/[place] [address] RPR [phone] HIV 1&2 p24 11/22/2018 [facility] HIV 4th Nonreactive Nonreactive Screen [address] [place] [address] [phone] Laboratory 11/20/2018 [facility] Hemoglobin 7.3 % High 4.0- 5.6 11 test finding [address] A1c ([place] [address] HGB) [phone] Comp 11/20/2018 [facility] Sodium 139 mmol/L Normal 135-[address] [place] [address] [phone] Potassium 4.1 mmol/L Normal 3.5-5.0 Chloride 106 [...] Egfr 82.2 >60 12 Laboratory test 10/09/2018 [facility] Surgical SEE RESULT [address] [place] [address] [phone] Laboratory test 10/09/2018 [facility] Clotest SEE RESULT [address] [place] [address] [phone] Laboratory test 10/09/2018 [facility] Point of Care 119 mg/dL High 70-10 [address] Glucose 0 [place] [address] [phone] Laboratory test 09/30/2018 [facility] Point of Care 93 mg/dL Normal 70-10 [address] Glucose 0 [place] [address] [phone] Laboratory test 09/30/2018 [facility] Point of Care 60 mg/dL Low 70-10 [address] Glucose 0 [place] [address] [phone] Laboratory test 09/30/2018 [facility] Point of Care 60 mg/dL Low 70-10 [address] Glucose 0 [place] [address] [phone] CBC Auto Diff 09/30/2018 [facility] White Blood 15.1 High 3.5- [address] Count 10^3/uL 0.8 [place], [place] [address] [phone] Red Blood Count 5.13 10^6/uL High 3.70-4.87 [...] Blood Cells % 0.0 Comp Metabolic 09/30/2018 [facility] Sodium 139 mmol/L Normal 135-[address] [place] [address] [phone] Potassium 3.9 mmol/L Normal 3.5-5.0 Chloride 104 [...] Egfr 82.2 >60 19 Laboratory test 09/30/2018 [facility] C Reactive 13.99 mg/L High <8.[address] [place] [address] [phone] HCG < 0.60 mIU/mL 20 Inr/Protime 09/30/2018 [facility] Inr 0.97 Normal 0.82-1.[address] [place] [address] [phone] Lipid Profile 09/17/2018 [facility] Triglycerides 173 22 (Trig/Chol/HDL) [address] mg/[place] [address] [phone] Cholesterol 128 mg/dL 23 HDL Cholesterol 34.8 mg/dL 24 LDL Cholesterol 59 mg/dL 25 Protein 09/17/2018 [facility] Total 6.5 g/dL 6.3 - Electrophoresis [address] Protein(Pep) 7.9 [place] [address] [phone] Albumin 3.0 g/dL Abnormal 3.4-4.7 Alpha-1 Globulin 0.3 g/dL 0.1-0.3 Alpha-2 Globulin 1.2 g/dL Abnormal 0.6-1.0 Beta Globulin 1.2 g/dL 0.7-1.2 Gamma Globulin 0.9 g/dL 0.6-1.6 Albumin/Globulin Ratio 0.85 Impression See Comment 26 Laboratory test 09/17/2018 [facility] Folic Acid 11.94 ng/mL >3.[address] (Folate) [place] [address] [phone] Vitamin B12 398 pg/mL Normal 180-914 28 Lyme Screen W/ Reflex To WB Negative Negative 29 Methylmalonic Acid Mma 0.20 nmol/mL <=0.40 30 Liver Function 09/17/2018 [facility] Total Protein 6.5 g/dL Normal 6.4-8.[address] [place] [address] [phone] Albumin 3.8 g/dL Normal 3.2-5.2 Globulin 2.7 g/dL Normal 2-4 Albumin/Globulin Ratio 1.4 Normal 1-3 Total Bilirubin 0.50 mg/dL Normal 0.2-1.0 Direct Bilirubin 0.10 mg/dL Normal 0.03-0.18 Indirect Bilirubin 0.4 mg/dL Normal 0.3-1.0 Alkaline Phosphatase 91 U/L Normal 34-104 Alt 14 U/L Normal 7-52 Ast 14 U/L Normal 13-39 Liver 08/17/2018 [facility] Direct Bilirubin 0.00 Low 0.03- 0.[address] mg/[place] [address] [phone] Lipid Profile 08/17/2018 [facility] Triglycerides 180 mg/dL 31 (Trig/Chol/HD [address] L) [place] [address] [phone] Cholesterol 209 mg/dL 32 HDL Cholesterol 42.0 mg/dL 33 LDL Cholesterol 131 mg/dL 34 Comp Metabolic 08/17/2018 [facility] Sodium 138 mmol/L Normal 135-[address] [place] [address] [phone] Potassium 4.5 mmol/L Normal 3.5-5.0 Chloride 103 [...] Egfr 101.0 >60 35 Lipid Panel 08/17/2018 [facility] Creatine 172 U/L Normal 10- 223 - JFM [address] Kinase(CK) [place] [address] [phone] Lipid 08/02/2018 [facility] Triglycerides [address] mg/dL (Trig/Chol/[place] [address] DL) [phone] Cholesterol 200 mg/dL 37 HDL Cholesterol 38.1 mg/dL 38 LDL Cholesterol 120 mg/dL 39 Comp Metabolic 08/02/2018 [facility] Sodium 136 mmol/L Normal 135-[address] [place] [address] [phone] Potassium 4.4 mmol/L Normal 3.5-5.0 Chloride 103 [...] Egfr 89.4 >60 40 Laboratory test 08/02/2018 [facility] Hemoglobin A1c 9.0 % High 4.0-5.6 [address] (Glyco HGB) [place] [address] [phone] 1 Senior Gamemaster: [id number] 2 Senior Gamemaster: [id number] 3 Standard intensity warfarin therapeutic range: 2.0-3.0 [...] dialysis) 5 Critical Result GLU:48 Called to [id number] at: 16:02:31 by:[id number] Read back by:NII 6 Troponin-I testing on Plasma Separator Tubes (PST) has a known false positive rate of 0.20-0.40%. All positive troponins reflex immediately to secondary confirmatory testing. Using the [employer] 800 Access Immunoassay systems, the 99th percentile upper reference limit was demonstrated to be < 0.03 ng/mL. 7 <5.0 Negative 5.0 - 25.0 Indeterminate (Repeat testing recommended after 72 hours) >25.0 Positive Perimenopausal women can display HCG levels of up to 20 mIU/mL 8 [id number] SEE RESULT BELOW Name: MARYA PINA : [address]: Kaylah Villanueva NP Acct: [id number] Unit: [id number] AGE: 38 Location: [facility] Re11/28/18 SEX: F Status: REG REF SPEC: [id number] LAMBERTO: 11/28/[address]: Kaylah Villanueva NP REQ: [id number] RECD: 11/28/18 STATUS: COMP _ SOURCE: URINE SPDESC: ORDERED: Urine Culture COMMENTS: [id number] Urine Source: Random Procedure Result Reported Site Urine Culture Final 11/29/18- 1609 ML No growth of clinically significant organisms * ML - Main Lab . END OF REPORT DEPARTMENT OF PATHOLOGY, [address] [place] [address] Reese Fu M.D. Director [facility] # [id number] 10 Standard intensity warfarin therapeutic range: 2.0-3.0 High intensity warfarin therapeutic range: 2.5-3.5 11 Therapeutic target for the treatment of diabetes mellitus patients is <7% HBA1C, and in selective patients <6.0%. Please refer to [place] [employer] diabetic care guidelines for further [...] [address]: Joshua Arita MD Acct: [id number] Unit: [id number] AGE: 38 Location: ENDO Re10/09/18 SEX: F Status: DEP REF SPEC: [id number] LAMBERTO: 10/09/18- [facility] DR: Joshua Ariat MD REQ: [id number] RECD: 10/09/18 STATUS: MARYLOU LANGFORD DR: Tuyet Alvarado SPARK PLUG TESTER _ ORDERED: LEVEL 4 FINAL DIAGNOSIS Stomach, [...] 1120 END OF REPORT DEPARTMENT OF PATHOLOGY, [address] [place] [address] Reese Fu M.D. Director [facility] # [id number] 14 SEE RESULT BELOW Name: MARYA PINA : [address]: Joshua Arita MD Acct: [id number] Unit: [id number] AGE: 38 Location: ENDO Re10/09/18 SEX: F Status: DEP REF SPEC: [id number] LAMBERTO: [address]: Joshua Arita MD REQ: [id number] RECD: 10/09/18 STATUS: EDUARDO LANGFORD DR: Tuyet Alvarado SPARK PLUG TESTER _ SOURCE: [facility]: ORDERED: Clotest Procedure Result Reported Site Clotest Final 10/10/18- 845 ML Clotest Negative * ML - Main Lab . END OF REPORT DEPARTMENT OF PATHOLOGY, [address] [place] [address] Reese Fu M.D. Director [facility] # [id number] 15 Senior Gamemaster: [id number] 16 Senior Gamemaster: [id number] 17 Senior Gamemaster: [id number] 18 Senior Gamemaster: [id number] 19 Because ethnic data is not always [...] protein on serum electrophoresis. Test Performed by: [facility] [address] [place] [address] 27 accidently received on batch 18. but specimen was not sent with batch 18. 28 Normal Range 180 to 914 Indeterminate Range 145 to 180 Deficient Range <145 29 accidently received on batch 18. but specimen was not sent with batch 18. 30 ADDITIONAL INFORMATION This test was developed and its performance characteristics determined by [facility] in a manner consistent with CLIA requirements. This test has not been cleared or approved by the U.S. Food and Drug Administration. Test Performed by: [facility] [address] [place] [address] 31 Desirable: <150 Borderline High: 150-199 High: [...] in selective patients <6.0%. Please refer to [place] [employer] diabetic care guidelines for further information. Procedures Date Code Description Status 12/18/2018 23437 Color Flow Doppler/Interp & Reprt Completed 12/18/2018 00955 Pulse Wave/Continuous-Interp.RPT Completed 12/18/2018 41334 Echocardiography, Transesophageal, Real Time W/Image Completed 2D W/W/O M-M 12/17/2018 93270 ECHO Transthorasic Realtime 2D W Doppler & Color Flow Completed Hosp 11/30/2018 77999 EKG Tracing & Interpretation Completed 11/22/2018 34141 EKG Tracing & Interpretation Completed 11/22/2018 09877 Inject/Drain Joint/Bursa Major W/O US Completed 11/21/2018 81045 Inject Tendon Sheath Or Ligament Aponeurosis Eg Completed Plantar Fascia 11/13/2018 55572 Polysomnography Sleep Staging 4+ Parameters Completed 10/17/2018 53741 Inject/Drain Joint/Bursa Major W/O US Completed 10/09/2018 19002 Endoscopy Upper GI Biopsy Completed 08/10/2017 [id number] Diabetic Retinal Eye Exam Completed 04/25/2016 [id number] Diabetic Retinal Eye Exam Completed 01/21/2015 388148008 Diabetic Retinal Eye Exam Completed Medical Devices Description No Information Available Encounters Type Date Location Provider Dx Diagnosis Office Visit 12/19/2018 [facility] Ronald Funez, 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 respiratory Ccmob infection, unspecified M17.0 Bilateral primary osteoarthritis of knee E11.65 Type 2 diabetes mellitus with hyperglycemia E66.01 Morbid (severe) obesity due to excess calories Office Visit 11/30/2018 [place] [place] Z01.810 Encounter for 8:20a Cardiology Mamta uFnez DO preprocedural [facility] FACC cardiovascular examination M17.10 Unilateral primary osteoarthritis, unspecified knee R06.02 Shortness of breath R94.31 Abnormal electrocardiogram [ECG] [EKG] Z72.0 Tobacco use Z68.43 Body mass index (BMI) 50.0-59.9, adult E66.8 Other obesity E11.9 Type 2 diabetes mellitus without complications I10 Essential (primary) hypertension E78.5 Hyperlipidemia, unspecified Office Visit 11/28/2018 11:40a [facility] Internal Kaylah Rich, R35.0 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 E11.65 Type 2 diabetes mellitus with hyperglycemia Office Visit 11/22/2018 1:30p [facility] Alfonso Smith S46.011A Strain of Orthopedics at [facility] Brian musc/tend the [place] rotator cuff of right shoulder, init M75.51 Bursitis of right shoulder Office Visit 11/22/2018 10:40a [facility] Internal Tuyet Alvarado, Z01.818 Encounter for other [...] Coagulation defect, unspecified Office Visit 11/21/2018 1:45p [facility] Gabrielle Main, 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 knee M25.462 Effusion, left knee E66.01 Morbid (severe) obesity due to excess calories M17.0 Bilateral primary osteoarthritis of knee S83.242A Oth tear of medial meniscus, current injury, left knee, init Office Visit 10/24/2018 9:45a [facility] Nhiedwar Hamilton, M25.562 Pain in left at [place] M.D. knee M25.561 Pain in right knee M25.462 Effusion, left knee M25.461 Effusion, right knee E66.01 Morbid (severe) obesity due to excess calories M17.0 Bilateral primary osteoarthritis of knee M23.8x2 Other internal derangements of left knee Office Visit 10/23/2018 2:30p [facility] Pawan Oconnell E66.01 Morbid ( severe) [facility] Billingsley M.D. obesity due to excess calories E11.42 Type 2 diabetes mellitus with diabetic polyneuropathy G43.009 Migraine w/o aura, not intractable, w/o status migrainosus Office Visit 10/17/2018 11:15a [facility] Nhi Hamilton, M25.562 Pain in left at [place] M.D. knee M25.462 Effusion, left knee M17.12 Unilateral primary osteoarthritis, left knee Z68.43 Body mass index (BMI) 50.0-59.9, adult E66.01 Morbid (severe) obesity due to excess calories Office Visit 10/10/2018 10:00a [facility] Tuyet Alvarado, M25.562 Pain in left Medicine - Ccmob N.P. knee Office Visit 09/21/2018 9:15a [facility] Noemy Bedolla, R06.83 [facility] MD Allred J45.909 Unspecified asthma, uncomplicated F17.210 Nicotine dependence, cigarettes, uncomplicated Office Visit 09/17/2018 [facility]ice Oconnell E11.42 Type 2 diabetes 10:00a Neurologic Bereket Billingsley mellitus with [facility] diabetic polyneuropathy G43.009 Migraine w/o aura, not intractable, w/o status migrainosus Office Visit 09/13/2018 [facility] Joshua Aguayo E66.01 Morbid 2:45p MD Juan J (severe) obesity due to excess calories E11.65 Type 2 diabetes mellitus with hyperglycemia Office 08/17/2018 [facility] Tuyet E78.00 Pure hypercholesterolemia, Visit 10:20a Medicine - Varn, N.P. 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 unspecified knee 12/12/2018 M25.562 Pain in left knee Nhi Hamilton M.D. 12/12/2018 M23.8x2 Other internal derangements of left knee Nhi Hamilton M.D. 11/30/2018 Z01.810 Encounter for preprocedural Ronald Funez, [facility] cardiovascular examination 11/30/2018 M17.10 Unilateral primary osteoarthritis, Ronald Funez, [facility] unspecified knee 11/30/2018 R06.02 Shortness of breath Ronald Funez, [facility] 11/30/2018 R94.31 Abnormal electrocardiogram [ECG] [EKG] Ronald Funez, [facility] 11/30/2018 Z72.0 Tobacco use Ronald Funez, [facility] 11/30/2018 Z68.43 Body mass index (BMI) 50.0-59.9, adult Ronald Funez, [facility] 11/30/2018 E66.8 Other obesity Ronald Funez, [facility] 11/30/2018 E11.9 Type 2 diabetes mellitus without Ronald Funez [facility] complications 11/30/2018 I10 Essential (primary) hypertension Ronald Funez [facility] 11/30/2018 E78.5 Hyperlipidemia, unspecified Ronald Funez, [facility] 11/28/2018 R35.0 Frequency of micturition Zsofia Rich, [employer] 11/28/2018 E11.65 Type 2 diabetes mellitus with Zsofia Rich, [employer] hyperglycemia 11/22/2018 R94.31 Abnormal electrocardiogram [ECG] [EKG] Christina Dunlap MD 11/22/2018 S46.011A Strain of muscle(s) and tendon(s) of the Alfonso Torres MD rotator cuff of right shoulder, initial encounter 11/22/2018 Z01.818 Encounter for other preprocedural Tuyet Varn, N.P. examination 11/22/2018 M75.51 Bursitis of right shoulder Alfonso Torres MD 11/22/2018 S83.242A Other tear of medial meniscus, current Tuyet Christiano, N.P. injury, left knee, initial encounter 11/22/2018 E11.42 Type 2 diabetes mellitus with diabetic Tuyet Alvarado, N.P. polyneuropathy 11/22/2018 Z68.43 Body mass index (BMI) 50.0-59.9, adult Tuyet Alvarado, N.P. 11/22/2018 E78.5 Hyperlipidemia, unspecified Tuyet Varn, N.P. 11/22/2018 J45.40 Moderate persistent asthma, Tuyet Varn, N.P. uncomplicated 11/22/2018 R94.31 Abnormal electrocardiogram [ECG] [EKG] Tuyet Alvarado, N.P. 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 uncomplicated 08/02/2018 Z79.4 custodial (current) use of insulin Luis Murdock MD 08/02/2018 E11.65 Type 2 diabetes mellitus with Luis Murdock MD hyperglycemia Plan of Treatment Future Appointment(s):01/08/2019 8:40 am - Ronald Funez DO FACDunia at [place] [facility]01/01/2019 3:00 pm - Yennifer Painting NP at [facility]12/27/2018 9:45 am - Alfonso Torres MD at [facility] at [id number]/20/2019 9:00 am - Luis Murdock MD at [facility]01/29/2019 11:45 am - Felice Billingsley M.D. at [facility]02/21/2019 11:00 am - Tuyet Alvarado N.P. at [facility] - [facility]12/26/2018 - Ronald Funez DO FACC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Comments:Cut the hydrochlorothiazide in 03/07 to take 12.5 mg once a day.Follow up:f/u 01/08/2019 at 8:40 AM my time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, not elsewhere fqpchwuvmkY37.69 Type 2 diabetes mellitus with other specified vpxhuhkrvmoeX57.0 Tobacco use Functional Status Description No Information Available Mental Status Description No Information Available Referrals Refer to Reason for Referral Status Appt Date Ronald Funez DO, [facility] Patient is a 38 year old morbidly obese [place] woman with diabetes, hypertension, and asthma. Her EKG is abnormal. I have referred her for cardiac evaluation. Thank you for seeing this complex patient. [address] [place] [address] [phone] Irving Quiroga MD diabetic neuropathy Sent [address] [place] [address] [phone] Yennifer Naylor M.D. bilateral CTS Sent [address] [place] [address] [phone] Nhi Hamilton MD Patient with bilateral knee pain, particularly Sent 2018 left, referred for evaluation and treatment. Thank you for seeing this very pleasant patient. [address] [place] [address] [phone]
[2019-01-02 14:23] LABS: ABS Basophils 0.2 10^3/ul (0-0.2); ABS Eosinophils 0.2 10^3/ul (0-0.6); ABS Lymphocytes 3.2 10^3/ul (1.0-4.8); ABS Monocytes 0.7 10^3/ul (0-0.8); ABS Neutrophils 9.4 10^3/ul (1.5-7.7); Eosinophil % 1.3 %; Hematocrit 43 % (35-47); Hemoglobin 14.1 g/dL (12.0-16.0); Lymphocyte % 23.6 %; Mean Corpuscular HGB Conc 33 g/dL (31-36); Mean Corpuscular Hemoglobin 28 pg (27-31); Mean Corpuscular Volume 84 fL (80-97); Mean Platelet Volume 7.7 fL (7.4-10.4); Nucleated Red Blood Cells % 0.1; Platelet Count 384 10^3/uL (150-450); Red Blood Count 5.09 10^6 /uL (3.70-4.87); Red Cell Distribution Width 15 % (10-15); White Blood Count 13.7 10^3/uL (3.5-10.8)
[2019-01-02 14:41] LABS: ALT 15 U/L (7-52); AST 14 U/L (13-39); Albumin/Globulin Ratio 1.2 (1-3); Alkaline Phosphatase 87 U/L (34-104); Anion Gap 8 mmol/L (2-11); BUN/Creatinine Ratio 19.4 (8-20); Blood Urea Nitrogen 18 mg/dL (6-24); CO2 Carbon Dioxide 27 mmol/L (22-32); Calcium 9.3 mg/dL (8.6-10.3); Chloride 105 mmol/L (101-111); EGFR African American 81.2 (>60); EGFR Non-African American 67.1 (>60); Globulin 3.4 g/dL (2-4); Glucose 151 mg/dL (70-100); Potassium 3.6 mmol/L (3.5-5.0); Sodium 140 mmol/L (135-145); Total Protein 7.4 g/dL (6.4-8.9)
[2019-01-02 14:48] LABS: HCG Pregnancy < 0.60 mIU/mL
[2019-01-02] MEDS ORDERED: Ondansetron INJ* 2 MG/ML VIAL IV ONE (15:38)
[2019-01-02] MEDS ORDERED: NS 0.9% 1000 ML** 1,000 ML IV ONE (15:38)
--- NOTE | 2019-01-02 15:38 | ED ---
Abdominal Pain/Female - HPI Summary HPI Summary: Patient is a 38 y/o F presenting to the ED for a chief complaint of diffuse abdominal pain, mostly near the umbilicus, nausea, and vomiting for the last 4 days. Patient describes the vomiting as mostly phlegm with a yellow color that occasionally michael while vomiting. Patient admits diarrhea, generalized weakness , and headache. Pt reports the diarrhea has a dark brown color. On 01/01/19, patient took Tylenol and Pepto-Bismol without relief, and took TUMS with some relief. Patient denies any positive sick contact. Patient has an appointment with Dr. Funez on 01/17/19 for an echocardiogram. Pt watches her 2yo grandchild - not sick. Pt is a diabetic -states sugars have been 200s, Allergies noted. Patients medications reviewed this visit. - History of Current Complaint Chief Complaint: EDNauseaVomitDiarrh Stated Complaint: THINKS DEHYDRATED PER PT Time Seen by Provider: 01/02/19 14:19 Hx Obtained From: Patient Hx Last Menstrual Period: one week ago ?: No Onset/Duration: Sudden Onset, Lasting Days - 4 days, Still Present Timing: Days - 4 days Severity Initially: Moderate Severity Currently: Moderate Pain Intensity: 4 Pain Scale Used: 0-10 Numeric Location: Diffuse, Umbilical - Mostly near the umbilicus Radiates: No Aggravating Factor(s): Nothing Alleviating Factor(s): Antacids - TUMS with some relief, Other: - No relief with Tylenol and Pepto-Bismol Associated Signs and Symptoms: Positive: Nausea, Vomiting - Mostly phlegm with a yellow color and burning, Diarrhea, Other: - Positive generalized weakness and BOSE Allergies/Adverse Reactions: Allergies Allergy/AdvReac Type Severity Reaction Status Date / Time hydrocodone Allergy Intermediate Rash And Verified 12/17/18 13:17 Itching latex Allergy Intermediate Rash And Verified 12/17/18 13:17 Itching Home Medications: Home Medications Aspirin EC TAB* [Ecotrin EC Low Dose 81 MG*] 81 mg PO BEDTIME 01/02/19 [History Confirmed 01/02/19] FLUoxetine CAP* [PROzac CAP*] 20 mg PO QAM 01/02/19 [History Confirmed 01/02/19] Ipratropium 0.5MG/2.5ML NEB* [Atrovent 0.5 MG NEB.NENO*] 0.5 mg INH TID PRN 01/02 [History Confirmed 01/02/19] Pantoprazole TAB (NF) [Protonix TAB (NF)] 20 mg PO DAILY 01/02/19 [History Confirmed 01/02/19] Pregabalin CAP(*) [Lyrica CAP(*)] 100 mg PO BID 01/02/19 [History Confirmed ] PMH/Surg Hx/FS Hx/Imm Hx Previously Healthy: Yes Endocrine/Hematology History: Reports: Hx Diabetes - type 2 Denies: Hx Anticoagulant Therapy - DVT and VIII (von willebrand), Hx Thyroid Disease Cardiovascular History: Reports: Hx Hypertension Denies: Hx Angina, Hx Pacemaker/ICD Respiratory History: Reports: Hx Asthma - uses nebulizer treatments PRN, Other Respiratory Problems/Disorders - allergic rhinits, smoker Denies: Hx Chronic Obstructive Pulmonary Disease (COPD) GI History: Reports: Hx Gall Bladder Disease - s/p cholecystectomy 2004 History: Denies: Hx Renal Disease Musculoskeletal History: Reports: Other Musculoskeletal History - H/o rib fx - no residual Sensory History: Denies: Hx Contacts or Glasses, Hx Legally Blind, Hx Deafness, Hx Hearing Aid Opthamlomology History: Denies: Hx Contacts or Glasses, Hx Legally Blind EENT History: Denies: Hx Deafness Neurological History: Denies: Hx Dementia, Hx Seizures Psychiatric History: Reports: Hx Depression Denies: Hx Panic Disorder, Hx Substance Abuse - Surgical History Surgical History: Yes Surgery Procedure, Year, and Place: 1993 tonsils, 2003 , 2004 cholecystectomy, 2012 complete tooth extraction (uppers & lowers). 05/31/17 vein Infectious Disease History: No Infectious Disease History: Denies: Hx Clostridium Difficile, Hx Hepatitis, Hx Human Immunodeficiency Virus (HIV), Hx of Known/Suspected MRSA, Hx Shingles, Hx Tuberculosis, Hx Known/ Suspected VRE, Hx Known/Suspected VRSA, History Other Infectious Disease, Traveled Outside the [place] in Last 30 Days - Family History Known Family History: Positive: Cardiac Disease, Other - Positive FMHx for URI, Non-Contributory Negative: Hypertension, Diabetes - Social History Occupation: Unemployed Alcohol Use: None Hx Substance Use: Yes Substance Use Type: Reports: Marijuana Hx Tobacco Use: Yes Smoking Status (MU): Light Every Day Tobacco Smoker Amount Used/How Often: 1 pack /day Have You Smoked in the Last Year: Yes Review of Systems Positive: Abdominal Pain - Diffuse, mostly near the umbilicus, Vomiting - With yellow color and burning, Diarrhea - With brown stool, Nausea Positive: Weakness - Generalized All Other Systems Reviewed And Are Negative: Yes Physical Exam - Summary Physical Exam Summary: Vital Signs Reviewed: Yes A+Ox3, no distress, speaking full,e asy sentences Eyes: Conjunctiva Clear, JANY. 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 Skin: Positive: no rash, no ecchymosis Triage Information Reviewed: Yes Vital Signs On Initial Exam: Initial Vitals Temp Pulse Resp BP Pulse Ox 97.8 F 76 16 154/89 100 01/02/19 12:30 01/02/19 12:30 01/02/19 12:30 01/02/19 12:30 01/02/19 12:30 Vital Signs Reviewed: Yes Procedures - Sedation Patient Received Moderate/Deep Sedation with Procedure: No Diagnostics - Vital Signs Vital Signs Temp Pulse Resp BP Pulse Ox 01/02/19 15:01 75 136/68 97 01/02/19 15:00 75 99 01/02/19 14:31 76 135/114 100 01/02/19 14:30 71 97 01/02/19 13:51 97.3 F 80 16 157/91 100 01/02/19 12:30 97.8 F 76 16 154/89 100 - Laboratory Lab Results: Lab Results 01/02/19 01/02/19 01/02/19 Range/Units 14:16 14:16 14:16 WBC 13.7 H (3.5-10.8) 10^3/uL RBC 5.09 H (3.70-4.87) 10^6 /uL Hgb 14.1 (12.0-16.0) g/dL Hct 43 (35-47) % MCV 84 (80-97) fL MCH 28 (27-31) pg MCHC 33 (31-36) g/dL RDW 15 (10-15) % Plt Count 384 (150-450) 10^3/uL MPV 7.7 (7.4-10.4) fL Neut % (Auto) 68.5 % Lymph % (Auto) 23.6 % [place] % (Auto) 5.5 % Eos % (Auto) 1.3 % Baso % (Auto) 1.1 % Absolute Neuts (auto) 9.4 H (1.5-7.7) 10^3/ul Absolute Lymphs (auto) 3.2 (1.0-4.8) 10^3/ul Absolute Monos (auto) 0.7 (0-0.8) 10^3/ul Absolute Eos (auto) 0.2 (0-0.6) 10^3/ul Absolute Basos (auto) 0.2 (0-0.2) 10^3/ul Absolute Nucleated RBC 0.0 10^3/ul Nucleated RBC % 0.1 Sodium 140 (135-145) mmol/L Potassium 3.6 (3.5-5.0) mmol/L Chloride 105 (101-111) mmol/L Carbon Dioxide 27 (22-32) mmol/L Anion Gap 8 (2-11) mmol/L BUN 18 (6-24) mg/dL Creatinine 0.93 (0.51-0.95) mg/dL Est GFR ( Amer) 81.2 (>60) Est GFR (Non-Af Amer) 67.1 (>60) BUN/Creatinine Ratio 19.4 (8-20) Glucose 151 H (70-100) mg/dL Lactic Acid 1.6 (0.5-2.0) mmol/L Calcium 9.3 (8.6-10.3) mg/dL Total Bilirubin 0.50 (0.2-1.0) mg/dL AST 14 (13-39) U/L ALT 15 (7-52) U/L Alkaline Phosphatase 87 (34-104) U/L Total Protein 7.4 (6.4-8.9) g/dL Albumin 4.0 (3.2-5.2) g/dL Globulin 3.4 (2-4) g/dL Albumin/Globulin Ratio 1.2 (1-3) Beta HCG, Quant < 0.60 mIU/mL Result Diagrams: 01/02/19 14:16 01/02/19 14:16 Lab Statement: Any lab studies that have been ordered have been reviewed, and results considered in the medical decision making process. - Radiology Chest X-ray Radiology Interpretation Completed By: Radiologist Summary of Radiographic Findings: Chest X-ray IMPRESSION: NO ACTIVE CARDIOPULMONARY DISEASE. Reviewed by ED physician. - CT Abdomen/Pelvis CT CT Interpretation Completed By: Radiologist Summary of CT Findings: Abdomen/Pelvis CT IMPRESSION: No abnormal masses or fluid collections are noted. No obstructive uropathy is noted. Fat containing lesion in the lower pole of left kidney likely represents angiomyolipoma measuring up to 3.4 x 1.8 cm. A surgical clip is noted between the uterus and urinary bladder for which clinical correlation with surgical history is suggested. Small anterior abdominal wall hernia containing omentum. Reviewed by ED physician. Re-Evaluation - Re-Evaluation First Re-Evaluation Time: 17:10 Change: Improved Comment: pain and nausea better. awaiting CT. labs reviewed Second Eval Re-Evaluation Time: 18:36 Comment: At 18:36, patient is feeling better, no vomiting. Abdominal Pain Fem Course/Dx - Course Course Of Treatment: Pt presents to ED with n/v/d and diffuse ab pain no fever , chills pt has taken tums with little relief. vss. pt with diffuse ad pain, increased in lower quads - no guarding, no rebound. will check labs, urine, IVF , analgesia, antiemtic and CT. Pt comfortable and in agreement. diff divertic , colitis, appendicitis - Diagnoses Provider Diagnoses: Nausea and vomiting Discharge ED - Sign-Out/Discharge Documenting (check all that apply): Patient Departure - Discharge - Discharge Plan Condition: Stable Disposition: HOME Prescriptions: Ondansetron ODT TAB* [Zofran 4 MG Odt TAB*] 4 mg PO Q4H PRN #10 tab.odt PRN Reason: Nausea Patient Education Materials: Acute Nausea and Vomiting (ED) Referrals: Tuyet Alvarado [employer] [Primary Care Provider] - Additional Instructions: - Stay well hydrated. Drink plenty of non-alcoholic, non-caffinated beverages - For the first 6 hours, eat and drink clears (water, zane justyn, soup broth, jello, popsicles, Gatorade). If you tolerate this okay, add bland foods such as dry toast, scrambled eggs, crackers. Wait until you are feeling better for 24 hours before eating spicy food, acidic food, tomato based food, fried food. - Okay to take medication as prescribed for nausea - contact your doctor or return with questions or concerns - Billing Disposition and Condition Condition: STABLE Disposition: Home - Attestation Statements Document Initiated by Viridianaibasif: Yes Documenting Scribe: Racheal Velasco Provider For Whom Roland is Documenting (Include Credential): Monica Garcia MD Scribe Attestation: IRacheal, scribed for Monica Garcia MD on 01/03/19 at 1944. Scribe Documentation Reviewed: Yes Provider Attestation: The documentation as recorded by the Racheal hensley accurately reflects the service I personally performed and the decisions made by me, Monica Garcia MD Status of Scribe Document: Viewed
[2019-01-02] MEDS ORDERED: Morphine 4 MG/ML VIAL (1 ml) 4 MG/ML VIAL IV ONE (15:41)
[2019-01-02] MEDS ORDERED: Famotidine IV* 10 MG/ML 2 ML (20 mg) IV SLOW PU ONE (15:42)
[2019-01-02 16:02] LABS: Urine Appearance Clear; Urine Bacteria 1+ (Absent); Urine Bilirubin Negative (Negative); Urine Blood 1+ (Negative); Urine Color Amber; Urine Glucose Negative (Negative); Urine Ketones 1+ (Negative); Urine Nitrite Negative (Negative); Urine Protein 1+(30 mg/dL) (Negative); Urine Red Blood Cell 1+(3-5/hpf) (Absent); Urine Squamous Epithelial Cell Present (Absent); Urine Urobilinogen Negative (Negative); Urine White Blood Cell Trace(0-5/hpf) (Absent)
[2019-01-02] MEDS ORDERED: Iodixanol* (CONTRAST) 320 MG/ML 100 ML SDV IV ONE (17:35)
[2019-01-02 19:05] VITALS: BP 104/67
== END 2019-01-02 19:05 | disposition home or self-care (01) ==
LOC: ED 11:46
DX: R11.2 Nausea with vomiting, unspecified (principal); E11.9 Type 2 diabetes mellitus without complications; I10 Essential (primary) hypertension; F17.200 Nicotine dependence, unspecified, uncomplicated; Z90.49 Acquired absence of other specified parts of digestive tract; Z79.82 Long term (current) use of aspirin; Z79.899 Other long term (current) drug therapy; Z88.5 Allergy status to narcotic agent; Z91.040 Latex allergy status
CPT/HCPCS: 36415; 71046; 74177; 80053; 81003; 81015; 83605; 84702; 85025; 87086; 96361; 96374; 96375; 99283; J2270; J2405; Q9967

== ENCOUNTER 2019-01-24 18:58 | Emergency (ER) | payer OTHER ==
--- OUTSIDE RECORDS SUMMARY | 2019-01-24 19:05 | XMS REPORT | Continuity of Care Document ---
:1980 External Reference #:[id number] Author Name Tuyet Alvarado N.P. (transmitted by agent of provider Jenniffer Washington) Address [address] [facility], [place] [address] Care Team Providers Name Role Phone Galo Fritz MD - Ophthalmology Care Team Information Research Group Director Ronald Nunez MD - Surgery Care Team Information Research Group Director [phone] Karla Rich MD - Internal Care Team Information Research Group Director [phone] [facility] Lili Herrera FNP-e - Family Care Team Information Research Group Director [facility] - Care Team Information Research Group Director Cooler Tender Yennifer Naylor M.D. - Surgery of Care Team Information Research Group Director the Hand Problems Active Problems Provider Date [...] Use Regularly uses Marijuana Smoking Status Reviewed: 01/08/19 Heavy tobacco smoker (more than 10 cigarettes/day) Exercise Type/Frequency Exercises sporadically Allergies, Adverse Reactions, Alerts Active Allergies Reaction Severity Comments Date Hydrocodone Pt states she itch all over. 05/21/2012 Latex itchy and rash 08/17/2015 Inactive Allergies NKDA 05/12/2011 Medications Active Medications SIG Qnty Indications Ordering Date Provider Xarelto 1 by mouth every Ronald S. 20mg Tablets day Funez, DO 9 FACC Omeprazole 1 by mouth every 30caps R11.2 [place] 20[address] prem Varn, N.P. 9 Nicorette 1 piece of gum 220un Tuyet 4mg Gum every 2 - 4 Varn, N.P. 9 hours. not more than 24 per day Adjust Bath/Shower Seat 62" 307lbs dx: 1units Nhi Hamilton, Misc left knee M.D. 9 meniscus tear, left knee pain Vitamin D Take 1 Tablet By 4caps [place] (Ergocalciferol) Mouth Once A Week Varn, N.P. 9 [id number] For 8 Weeks Capsules Tylenol With Codeine #3 1 tablet by mouth 21tabs M25.562 [place] every 8 hours as Varn, N.P. 9 300-30mg Tablets needed cough Topiramate 1 po qhs 30tabs G43.009 Felice S. 100mg Tablets Bereket Billingsley 9 Lyrica take two caps by 120caps G62.9 Felice Oconnell 50mg Capsules mouth twice a Bereket Billingsley 9 day. brand name necessary. code c Atorvastatin Calcium take 1 tablet by 90tabs E78.00 [place] 20mg mouth at bedtime Varn, N.P. 9 Tablets Advair Diskus inhale 1 dose by 60units J45.41 [place] 500-50mcg/Dose mouth twice daily Varn, N.P. 9 Aerosol (not taking) Humulin N 35 units QHS or 20ml E11.65 [facility], 100Unit/ML Suspension as directed, ANASTASIA Blake 60 Humulin R 30 units tid-ac 50ml [facility], 100Unit/ML Solution or as directed, MD Hayden OCONNOR 180 Ozempic Hold On File, 1mg 3ml E1165 [facility], 1mg/Dose Solution injection once MD Blake Pen-Inject weekly, hold on file for second month Onetouch Ultrasoft use to test blood 300units [facility], Lancets glucose three MD Blake Misc times a day and as needed Onetouch Verio test four times 150units [facility], Strips daily and as MD Blake needed Insulin Syringe/0.5ML/30G 4 times daily for 150units E11.40 [facility], X 1/2" insulin MD Blake 30G X 1/2" 0.5 ML [facility] Gl[facility] Monitoring test blood sugars 1units E11.65 [place] System once fasting and Varn, N.P. 9 W/Device Kit 2 hours after dinner meal Blood Glucose Test test blood sugar 100units E11.65 [place] Strips fasting in in the Varn, N.P. 9 morning and 2 hours after dinner meal Lancet Device use when testing 100units E11.65 [place] Misc blood gluose Varn, N.P. 9 Pantoprazole Sodium Take One Tablet 30tabs [place] 20mg By Mouth Every Varn, N.P. [address] Day Mucinex twice a day as 20tabs J20.9 [place] 600mg Tablets ER 12HR needed Varn, N.P. 8 Ranitidine HCL Take One Tablet 60tabs Shane Anderson, 150mg Tablets By Mouth Twice A MORTAR MAN 8 Day Hydrochlorothiazide take 1/2 by mouth 30tabs Ronald S. 25mg daily Funez, DO 8 Tablets FACC Glucose Meter Test Strips for use 3-4 times 100units [place] Advanced daily Varn, N.P. 8 Strips Nebulizer use three times a 1units [place] Kit/Tubing/Mouthpiece day as needed Varn, N.P. 8 Kit Fluoxetine HCL Take One Capsule 30caps F43.23 [place] 20mg Capsules By Mouth Every Varn, N.P. 8 Day Montelukast Sodium Take One Tablet 30tabs J45.41 [place] 10mg Tablets By Mouth Every Varn, N.P. 7 Day Freestyle Lancets test up to 2 300units [place] Misc times a day or as Varn, N.P. 7 needed Metformin HCL ER Take 4 Tablets By 120tabs E11.65 [place] 500mg Tablets Mouth With Dinner Varn, N.P. 7 ER 24HR Fluconazole Take 1 Tablet By 2tabs [place] 150mg Tablets Mouth Then May Varn, N.P. 7 Repeat In 3 Days as Needed Simethicone 1 by mouth after 30caps R19.7 [place] 180mg Capsules each meal as Varn, N.P. 7 needed Ventolin HFA Inhale Two Puffs 18units [place] 108(90Base) By Mouth Four Varn, N.P. 6 mcg/Act Aerosol Times A Day as Needed Freestyle Lite Blood check fingerstick 1units E11.65 [place] Glucose Monitoring System three times daily Varn, N.P. 6 or as needed, DX Device - E11.65 Nebulizer use three times a 1units J20.9 [place] Device day as needed Varn, N.P. 6 Ipratropium inhale the 180units J20.9 [place]/Albuterol Sulfate contents of one Varn, N.P. 6 vial via 0.5-2.5(3)mg/3ML Solution nebulizer three times a day as needed for asthma Compression Stockings knee high 2units I80.02 [place] Misc stockings 20 - 30 Varn, N.P. 6 mm Cetirizine HCL 1 by mouth every 30tabs J30.9 [place] 10mg Tablets day Varn, N.P. 6 Ramipril Take One Capsule 30caps I10 [place] 5mg Capsules By Mouth Every Varn, N.P. 5 Day Fluticasone Propionate [place] One [place] 16units [place] In Each Nostril Varn, N.P. 4 50mcg/Act Suspension Every Day as Needed Nebulizer J45.909 Cristina Garcia, Compressor/Dualfilter/7' M.D. 3 Tubing/Aerosol T/Mthpiece Kit Methocarbamol 1 by mouth twice Unknown 0000/000 Tablets a day as needed 0 for spasm History Medications Xarelto 1 by mouth twice 42tabs Ronald Funez, 12/17/2018 - 15mg daily DO [facility] 01/08/2019 Tablets Benzonatate one by mouth 30caps J06.9 Tuyet [...] PM, MDD 08/07/2018 100 (70-30)100Unit/ML Supn Pen [place] 1/2" use 1 pen needle 100units E11.65 [...] Hamilton M.D. 10/17/2018 Injection Records Fee Tuyet Alvarado, N.P. 08/29/2018 Injection Immunizations CPT Code Status Date Vaccine Lot # [id number] Given 10/04/2016 Tdap - Tetanus/Diptheria/Acellular Pertussis [id number] Given 01/20/2015 Flu Vaccine Split Virus Preservative Free For [id number] Indiv [id number] Older [id number] Given 05/21/2012 Pneumonia Vaccine [id number] Vital Signs Date Vital Result Comment 01/08/2019 11:07am Height 63 inches 5'3" Weight 278.00 lb Heart Rate 78 /min BP Systolic Sitting 117 mmHg BP Diastolic Sitting 79 mmHg Body Temperature 98.4 F O2 % BldC Oximetry 98 % BMI (Body Mass Index) 49.2 kg/m2 01/08/2019 8:24am Height 63 inches 5'3" Weight 277.00 lb with shoes Heart Rate 80 /min BP Systolic Sitting 112 mmHg Rue large cuff BP Diastolic Sitting 76 mmHg Rue large cuff BP Systolic Standing 106 mmHg Rue large cuff BP Diastolic Standing 70 mmHg Rue large cuff Respiratory Rate 13 /min BMI (Body Mass Index) 49.1 kg/m2 Ejection Fraction 55-60% ECHO 12/17/2018 Results Test Acquired Date Facility Test Result H/L Range Note CBC Auto 01/02/2019 [facility] White Blood 13.7 10^3/uL High 3.5-10.[address] [place] [address] [phone] Red Blood Count 5.09 10^6/uL High 3.70-4.87 Hemoglobin 14.1 g/dL Normal 12.0-16.0 Hematocrit 43 % Normal 35-47 Mean Corpuscular Volume 84 fL Normal 80-97 Mean Corpuscular Hemoglobin 28 pg Normal 27-31 Mean Corpuscular HGB Conc 33 g/dL Normal 31-36 Red Cell Distribution Width 15 % Normal 10-15 Platelet Count 384 10^3/uL Normal 150-450 Mean Platelet Volume 7.7 fL Normal 7.4-10.4 Abs Neutrophils 9.4 10^3/uL High 1.5-7.7 Abs Lymphocytes 3.2 10^3/uL Normal 1.0-4.8 Abs Monocytes 0.7 10^3/uL Normal 0-0.8 Abs Eosinophils 0.2 10^3/uL Normal 0-0.6 Abs Basophils 0.2 10^3/uL Normal 0-0.2 Abs Nucleated RBC 0.0 10^3/uL Granulocyte % 68.5 % Lymphocyte % 23.6 % Monocyte % 5.5 % Eosinophil % 1.3 % Basophil % 1.1 % Nucleated Red Blood Cells % 0.1 Laboratory test 01/02/2019 [facility] Lactic Acid 1.6 mmol/L Normal 0.5-2.0 [address] [place] [address] [phone] Comp Metabolic 01/02/2019 [facility] Sodium 140 mmol/L Normal 135-[address] [place] [address] [phone] Potassium 3.6 mmol/L Normal 3.5-5.0 Chloride 105 mmol/L Normal 101-111 Co2 Carbon Dioxide 27 mmol/L Normal 22-32 Anion Gap 8 mmol/L Normal 2-11 Glucose 151 mg/dL High 70-100 Blood Urea Nitrogen 18 mg/dL Normal 6-24 Creatinine 0.93 mg/dL Normal 0.51-0.95 BUN/Creatinine Ratio 19.4 Normal 8-20 Calcium 9.3 mg/dL Normal 8.6-10.3 Total Protein 7.4 g/dL Normal 6.4-8.9 Albumin 4.0 g/dL Normal 3.2-5.2 Globulin 3.4 g/dL Normal 2-4 Albumin/Globulin Ratio 1.2 Normal 1-3 Total Bilirubin 0.50 mg/dL Normal 0.2-1.0 Alkaline Phosphatase 87 U/L Normal 34-104 Alt 15 U/L Normal 7-52 Ast 14 U/L Normal 13-39 Egfr Non- 67.1 >60 Egfr 81.2 >60 2 Laboratory test 01/02/2019 [facility] HCG < 0.60 mIU/ mL [address] [place] [address] [phone] Urinalysis Profile 01/02/2019 [facility] Urine Color Negin [address] [place] [address] [phone] Urine Appearance Clear Urine Specific [place] 1.030 Normal 1.010-1.030 Urine pH 5.0 Normal 5-9 Urine Urobilinogen Negative Negative Urine Ketones 1+ Abnormal Negative Urine Protein 1+(30 mg/dL) Abnormal Negative Urine Leukocytes Negative Negative Urine Blood 1+ Abnormal Negative Urine Nitrite Negative Negative Urine Bilirubin Negative Negative Urine Glucose Negative Negative Urine White Blood Cell Trace(0-5/hpf) Absent Urine Red Blood Cell 1+(3-5/hpf) Abnormal Absent Urine Bacteria 1+ Abnormal Absent Urine Squamous Epithelial Cell Present Abnormal Absent Urine Hyaline Casts Present Abnormal Absent Urine Culture And 01/02/2019 [facility] Urine SEE RESULT [address] [place] [address] [phone] Laboratory test 12/18/2018 [facility] Point of 112 mg/dL High 70-10 [address] Care Glucose 0 [place] [address] [phone] Laboratory test 12/17/2018 [facility] Point of 124 mg/dL High 70-10 [address] Care Glucose 0 [place] [address] [phone] CBC Auto Diff 12/17/2018 [facility] White Blood 15.9 High 3.5- [address] Count 10^3/uL 0.8 [place] [address] [phone] Red Blood Count 5.10 10^6/uL High 3.70-4.87 [...] Red Blood Cells % 0.0 Inr/Protime 12/17/2018 [facility] Inr 1.33 High 0.82-1.[address] [place] [address] [phone] Laboratory test 12/17/2018 [facility] Partial 41.7 High 26.0- 38.[address] [place] [address] Time PTT [phone] Basic Metabolic 12/17/2018 [facility] Sodium 141 mmol/L Normal 135-[address] [place] [address] [phone] Potassium 3.2 mmol/L Low 3.5-5.0 Chloride 106 mmol/L Normal 101-111 Co2 Carbon Dioxide 30 mmol/L Normal 22-32 Anion Gap 5 mmol/L Normal 2-11 Blood Urea Nitrogen 18 mg/dL Normal 6-24 Creatinine 0.81 mg/dL Normal 0.51-0.95 BUN/Creatinine Ratio 22.2 High 8-20 Calcium 9.1 mg/dL Normal 8.6-10.3 Egfr Non- 78.7 >60 Egfr 95.2 >60 8 Glucose 48 mg/dL Critical low 70-100 9 Liver Function 12/17/2018 [facility] Total Protein 7.0 g/dL Normal 6.4-8.[address] [place] [address] [phone] Albumin 3.9 g/dL Normal 3.2-5.2 Globulin 3.1 g/dL Normal 2-4 Albumin/Globulin Ratio 1.3 Normal 1-3 Total Bilirubin 0.30 mg/dL Normal 0.2-1.0 Direct Bilirubin 0.00 mg/dL Low 0.03-0.18 Alkaline Phosphatase 83 U/L Normal 34-104 Alt 12 U/L Normal 7-52 Ast 13 U/L Normal 13-39 Laboratory test 12/17/2018 [facility] Magnesium 1.9 mg/dL Normal 1.9-2.[address] [place] [address] [phone] Lipase 18 U/L Normal 11.0-82.0 Troponin-I (TnI) 0.00 ng/mL <0.04 10 HCG < 0.60 mIU/mL 11 Ua Routine 11/28/2018 [facility] Ua Specific [place] 1.020 Ua PH 5 Ua Color dark yellow Ua Appera cloudy Ua WBC trace Ua Protein trace Ua Glucose normal Ua Ketones negative Ua Bilirubin + Ua Urobilinogen normal Ua Nitrite + Ua Occult Blood negative Urine Culture 11/28/2018 [facility] Urine Culture SEE RESULT 12, And [address] BELOW 13 [place] [address] [phone] HIV 1&2 p24 11/22/2018 [facility] HIV 4th Nonreactive Nonreactive Screen [address] [place] [address] [phone] Laboratory test 11/22/2018 [facility] Syphillis Igg Negative Negative finding [address] W/Reflex RPR [place], [place] [address] [phone] GC/Chlamydia 11/22/2018 [facility] Chlamydia Negative Negative Amplified Rna [address] [place] [address] Abby [phone] Neisseria gonorrhoeae (GC) Abby Negative Negative CBC Auto 11/22/2018 [facility] White Blood 15.3 10^3/uL High 3.5-10.[address] [place] [address] [phone] Red Blood Count 5.06 10^6/uL High 3.70-4.87 [...] Nucleated Red Blood Cells % 0.0 Laboratory 11/22/2018 [facility] Partial 31.5 Normal 26.0- 38.0 test finding [address] [place] [address] Time PTT [phone] Inr/Protime 11/22/2018 [facility] Inr 0.95 Normal 0.82-1.[address] [place] [address] [phone] Urinalysis 11/22/2018 [facility] Urine Color Yellow Profile [address] [place] [address] [phone] Urine Appearance Cloudy Urine Specific [place] 1.022 Normal 1.010-1.030 Urine pH 5.0 Normal 5-9 Urine Urobilinogen Negative Negative Urine Ketones Negative Negative Urine Protein Negative Negative Urine Leukocytes Negative Negative Urine Blood Negative Negative Urine Nitrite Negative Negative Urine Bilirubin Negative Negative Urine Glucose 3+(>=500 mg/dL) Abnormal Negative Laboratory test 11/20/2018 [facility] Hemoglobin A1c 7.3 % High 4.0-5.6 [address] (Glyco HGB) [place] [address] [phone] Comp Metabolic 11/20/2018 [facility] Sodium 139 Normal 135- [address] mmol/[place] [address] [phone] Potassium 4.1 mmol/L Normal 3.5-5.0 Chloride 106 [...] Egfr Non- 68.0 >60 Egfr 82.2 >60 16 Laboratory test 10/09/2018 [facility] Surgical SEE RESULT [address] [place] [address] [phone] Laboratory test 10/09/2018 [facility] Clotest SEE RESULT [address] [place] [address] [phone] Laboratory test 10/09/2018 [facility] Point of Care 119 mg/dL High 70-10 [address] Glucose 0 [place] [address] [phone] Laboratory test 09/30/2018 [facility] Point of Care 93 mg/dL Normal 70-10 [address] Glucose 0 [place] [address] [phone] Laboratory test 09/30/2018 [facility] Point of Care 60 mg/dL Low 70-10 [address] Glucose 0 [place] [address] [phone] Laboratory test 09/30/2018 [facility] Point of Care 60 mg/dL Low 70-10 [address] Glucose 0 [place] [address] [phone] CBC Auto Diff 09/30/2018 [facility] White Blood 15.1 High 3.5- [address] Count 10^3/uL 0.8 [place] [address] [phone] Red Blood Count 5.13 10^6/uL High 3.70-4.87 [...] Blood Cells % 0.0 Comp Metabolic 09/30/2018 [facility] Sodium 139 mmol/L Normal 135-[address] [place] [address] [phone] Potassium 3.9 mmol/L Normal 3.5-5.0 Chloride 104 [...] Egfr Non- 68.0 >60 Egfr 82.2 >60 23 Laboratory test 09/30/2018 [facility] C Reactive 13.99 mg/L High <8.[address] [place] [address] [phone] HCG < 0.60 mIU/mL 24 Inr/Protime 09/30/2018 [facility] Inr 0.97 Normal 0.82-1.[address] [place] [address] [phone] Lipid Profile 09/17/2018 [facility] Triglycerides 173 26 (Trig/Chol/HDL) [address] mg/[place] [address] [phone] Cholesterol 128 mg/dL 27 HDL Cholesterol 34.8 mg/dL 28 LDL Cholesterol 59 mg/dL 29 Protein 09/17/2018 [facility] Total 6.5 g/dL 6.3 - Electrophoresis [address] Protein(Pep) 7.9 [place] [address] [phone] Albumin 3.0 g/dL Abnormal 3.4-4.7 Alpha-1 Globulin 0.3 g/dL 0.1-0.3 Alpha-2 Globulin 1.2 g/dL Abnormal 0.6-1.0 Beta Globulin 1.2 g/dL 0.7-1.2 Gamma Globulin 0.9 g/dL 0.6-1.6 Albumin/Globulin Ratio 0.85 Impression See Comment 30 Laboratory test 09/17/2018 [facility] Folic Acid 11.94 ng/mL >3.99 31 finding 101 (Folate) [place] [address] [phone] Vitamin B12 398 pg/mL Normal 180-914 32 Lyme Screen W/ Reflex To WB Negative Negative 33 Methylmalonic Acid Mma 0.20 nmol/mL <=0.40 34 Liver Function 09/17/2018 [facility] Total Protein 6.5 g/dL Normal 6.4-8.9 Panel 101 [place] [address] [phone] Albumin 3.8 g/dL Normal 3.2-5.2 Globulin 2.7 g/dL Normal 2-4 Albumin/Globulin Ratio 1.4 Normal 1-3 Total Bilirubin 0.50 mg/dL Normal 0.2-1.0 Direct Bilirubin 0.10 mg/dL Normal 0.03-0.18 Indirect Bilirubin 0.4 mg/dL Normal 0.3-1.0 Alkaline Phosphatase 91 U/L Normal 34-104 Alt 14 U/L Normal 7-52 Ast 14 U/L Normal 13-39 Liver 08/17/2018 [facility] Direct Bilirubin 0.00 Low 0.03- 0.18 Function 101 mg/[place] [address] [phone] Lipid Profile 08/17/2018 [facility] Triglycerides 180 mg/dL 35 (Trig/Chol/HD 101 L) [place] [address] [phone] Cholesterol 209 mg/dL 36 HDL Cholesterol 42.0 mg/dL 37 LDL Cholesterol 131 mg/dL 38 Comp Metabolic 08/17/2018 [facility] Sodium 138 mmol/L Normal 135-145 Panel 101 [place] [address] [phone] Potassium 4.5 mmol/L Normal 3.5-5.0 Chloride 103 [...] Egfr Non- 83.5 >60 Egfr 101.0 >60 39 Lipid Panel 08/17/2018 [facility] Creatine 172 U/L Normal 10- 223 - JFM [address] Kinase(CK) [place], [place] [address] [phone] Lipid 08/02/2018 [facility] Triglycerides 208 [address] mg/dL (Trig/Chol/[place] [address] DL) [phone] Cholesterol 200 mg/dL 41 HDL Cholesterol 38.1 mg/dL 42 LDL Cholesterol 120 mg/dL 43 Comp Metabolic 08/02/2018 [facility] Sodium 136 mmol/L Normal 135-[address] [place] [address] [phone] Potassium 4.4 mmol/L Normal 3.5-5.0 Chloride 103 [...] Egfr Non- 73.8 >60 Egfr 89.4 >60 44 Laboratory test 08/02/2018 [facility] Hemoglobin A1c 9.0 % High 4.0-5.[address] (Glyco HGB) [place] [address] [phone] 1 [facility] Severe Sepsis and Septic Shock Management Bundle Measure requires all lactic acids initially measuring >2.0 mmol/L be repeated. 2 Because ethnic data is not always [...] 5 Kidney failure <15 (or dialysis) 3 <5.0 Negative 5.0 - 25.0 Indeterminate (Repeat testing recommended after 72 hours) >25.0 Positive Perimenopausal women can display HCG levels of up to 20 mIU/mL 4 SEE RESULT BELOW Name: MARYA PINA I : [address]: Monica Garcia MD Acct: [id number] Unit: [id number] AGE: 38 Location: ED Re01/02/19 SEX: F Status: DEP ER SPEC: [id number] LAMBERTO: 01/02/[address]: Monica Garcia MD REQ: [id number] RECD: 01/02/19 STATUS: COMP [facility] DR: [facility] Tuyet Alvarado MORTAR MAN _ SOURCE: URINE SPDESC: ORDERED: Urine Culture Procedure Result Reported Site Urine Culture Final 01/03/19- 1328 ML No Growth (<1,000 CFU/mL) * ML - Main Lab . END OF REPORT DEPARTMENT OF PATHOLOGY, [address] [place] [address] Reese Fu M.D. Director [facility] # [id number] 5 Fruit Picker: [id number] 6 Fruit Picker: [email or web address] 7 Standard intensity warfarin therapeutic range: 2.0-3.0 High intensity warfarin therapeutic range: 2.5-3.5 8 Because ethnic data is not always readily [...] 15-29 5 Kidney failure <15 (or dialysis) 9 Critical Result GLU:48 Called to [id number] at: 16:02:31 by:[id number] Read back by:[id number] 10 Troponin-I testing on Plasma Separator Tubes (PST) has a known false positive rate of 0.20-0.40%. All positive troponins reflex immediately to secondary confirmatory testing. Using the [employer] 800 Access Immunoassay systems, the 99th percentile upper reference limit was demonstrated to be < 0.03 ng/mL. 11 <5.0 Negative 5.0 - 25.0 Indeterminate (Repeat testing recommended after 72 hours) >25.0 Positive Perimenopausal women can display HCG levels of up to 20 mIU/mL 12 [id number] 13 SEE RESULT BELOW Name: MARYA PINA : [address]: Kaylah Villanueva NP Acct: [id number] Unit: [id number] AGE: 38 Location: [facility] Re11/28/18 SEX: F Status: REG REF SPEC: [id number] LAMBERTO: 11/28/18-[address] [facility] [address]: Kaylah Villanueva NP REQ: [id number] RECD: 11/28/18 STATUS: COMP _ SOURCE: URINE [facility]: ORDERED: Urine Culture COMMENTS: [id number] Urine Source: Random Procedure Result Reported Site Urine Culture Final 11/29/18- 1609 ML No growth of clinically significant organisms * ML - Main Lab . END OF REPORT DEPARTMENT OF PATHOLOGY, [address] [place] [address] Reese Fu M.D. Director [facility] # [id number] 14 Standard intensity warfarin therapeutic range: 2.0-3.0 High intensity warfarin therapeutic range: 2.5-3.5 15 Therapeutic target for the treatment of diabetes mellitus patients is <7% HBA1C, and in selective patients <6.0%. Please refer to [place] [employer] diabetic care guidelines for further information. 16 Because ethnic data is not always [...] 5 Kidney failure <15 (or dialysis) 17 SEE RESULT BELOW Name: SILVANANAVIOLEG Bates : [address]: Joshua Arita MD Acct: [id number] Unit: [id number] AGE: 38 Location: ENDO Re10/09/18 SEX: F Status: DEP REF SPEC: [id number] LAMBERTO: 10/09/18- SUBM DR: Joshua Arita MD REQ: [id number] RECD: 10/09/181054 STATUS: MARYLOU LANGFORD DR: Tuyet Alvarado MORTAR MAN _ ORDERED: LEVEL 4 FINAL DIAGNOSIS Stomach, [...] 1120 END OF REPORT DEPARTMENT OF PATHOLOGY, [address] [place] [address] Reese Fu M.D. Director [facility] # [id number] 18 SEE RESULT BELOW Name: MARYA PINA : [address]: Joshua Arita MD Acct: [id number] Unit: [id number] AGE: 38 Location: ENDO Re10/09/18 SEX: F Status: DEP REF SPEC: [id number] LAMBERTO: 10/09/[address]: Joshua Arita MD REQ: [id number] RECD: 10/09/18 STATUS: EDUARDO LANGFORD DR: Tuyet Alvarado MORTAR MAN _ SOURCE: GAS ANTRUM SPDESC: ORDERED: Clotest Procedure Result Reported Site Clotest Final 10/10/18- 845 ML Clotest Negative * ML - Main Lab . END OF REPORT DEPARTMENT OF PATHOLOGY, [address] [place] [address] Reese Fu M.D. Director [facility] # [id number] Fruit Picker: [email or web address] 20 Fruit Picker: [email or web address] 21 Fruit Picker: [email or web address] 22 Fruit Picker: [email or web address] 23 Because ethnic data is not always [...] 5 Kidney failure <15 (or dialysis) 24 <5.0 Negative 5.0 - 25.0 Indeterminate (Repeat testing recommended after 72 hours) >25.0 Positive Perimenopausal women can display HCG levels of up to 20 mIU/mL 25 Standard intensity warfarin therapeutic range: 2.0-3.0 High intensity warfarin therapeutic range: 2.5-3.5 26 Desirable: <150 Borderline High: 150-199 High: 200-499 Very High: >500 27 Desirable: <200 Borderline High: 200-239 High: >239 28 Low: <40 Desirable: 40-60 High: >60 29 Desirable: <100 Near Optimal: 100-129 Borderline High: 130-159 High: 160-189 Very High: >189 30 RESULT: No apparent monoclonal protein on serum electrophoresis. Test Performed by: [facility] [address] [place] [address] 31 accidently received on batch 18. but specimen was not sent with batch 18. 32 Normal Range 180 to 914 Indeterminate Range 145 to 180 Deficient Range <145 33 accidently received on batch 18. but specimen was not sent with batch 18. 34 ADDITIONAL INFORMATION This test was developed and its performance characteristics determined by [facility] in a manner consistent with CLIA requirements. This test has not been cleared or approved by the U.S. Food and Drug Administration. Test Performed by: [facility] - [address] [address] 35 Desirable: <150 Borderline High: 150-199 High: 200-499 Very High: >500 36 Desirable: <200 Borderline High: 200-239 High: >239 37 Low: <40 Desirable: 40-60 High: >60 38 Desirable: <100 Near Optimal: 100-129 Borderline High: 130-159 High: 160-189 Very High: >189 39 Because ethnic data is not always readily [...] 15-29 5 Kidney failure <15 (or dialysis) 40 Desirable: <150 Borderline High: 150-199 High: 200-499 Very High: >500 41 Desirable: <200 Borderline High: 200-239 High: >239 42 Low: <40 Desirable: 40-60 High: >60 43 Desirable: <100 Near Optimal: 100-129 Borderline High: 130-159 High: 160-189 Very High: >189 44 Because ethnic data is not always [...] 5 Kidney failure <15 (or dialysis) 45 Therapeutic target for the treatment of diabetes mellitus patients is <7% HBA1C, and in selective patients <6.0%. Please refer to [place] [employer] diabetic care guidelines for further information. Procedures Date Code Description Status 12/18/2018 34324 Moderate Sedation Services; Same Phys Intl 15 Mins; PT Completed >= 5 Years 12/18/2018 71389 Color Flow Doppler/Interp & Reprt Completed 12/18/2018 49450 Pulse Wave/Continuous-Interp.RPT Completed 12/18/2018 72525 Echocardiography, Transesophageal, Real Time W/Image Completed 2D W/W/O M-M 12/17/2018 98569 ECHO Transthorasic Realtime 2D W Doppler & Color Flow Completed Hosp 11/30/2018 85015 EKG Tracing & Interpretation Completed 11/22/2018 84501 EKG Tracing & Interpretation Completed 11/22/2018 79967 Inject/Drain Joint/Bursa Major W/O US Completed 11/21/2018 56505 Inject Tendon Sheath Or Ligament Aponeurosis Eg Completed Plantar Fascia 11/13/2018 90871 Polysomnography Sleep Staging 4+ Parameters Completed 10/17/2018 04760 Inject/Drain Joint/Bursa Major W/O US Completed 10/09/2018 12413 Endoscopy Upper GI Biopsy Completed 08/10/2017 574297890 Diabetic Retinal Eye Exam Completed 04/25/2016 [id number] Diabetic Retinal Eye Exam Completed 01/21/2015 [id number] Diabetic Retinal Eye Exam Completed Medical Devices Description No Information Available Encounters Type Date Location Provider Dx Diagnosis Office Visit 12/26/2018 [facility] Ronald Funez, 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 respiratory Ccmob infection, unspecified M17.0 Bilateral primary osteoarthritis of knee E11.65 Type 2 diabetes mellitus with hyperglycemia E66.01 Morbid (severe) obesity due to excess calories Office Visit 11/30/2018 [facility] Ronald Oconnell Z01.810 Encounter for 8:20a Cardiology Mamta Funez DO preprocedural [facility] cardiovascular examination M17.10 Unilateral primary osteoarthritis, unspecified knee R06.02 Shortness of breath R94.31 Abnormal electrocardiogram [ECG] [EKG] Z72.0 Tobacco use Z68.43 Body mass index (BMI) 50.0-59.9, adult E66.8 Other obesity E11.9 Type 2 diabetes mellitus without complications I10 Essential (primary) hypertension E78.5 Hyperlipidemia, unspecified Office Visit 11/28/2018 11:40a [facility] Internal Kaylah Villanueva, 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 E11.65 Type 2 diabetes mellitus with hyperglycemia Office Visit 11/22/2018 1:30p Damon Smith S46.011A Strain of Orthopedics at [facility] Brian musc/tend the [facility] rotator cuff of right shoulder, init M75.51 Bursitis of right shoulder Office Visit 11/22/2018 10:40a [facility] Internal Tuyet Alvarado, Z01.818 Encounter for other [...] Coagulation defect, unspecified Office Visit 11/21/2018 1:45p [facility] Gabrielle Main, 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 knee M25.462 Effusion, left knee E66.01 Morbid (severe) obesity due to excess calories M17.0 Bilateral primary osteoarthritis of knee S83.242A Oth tear of medial meniscus, current injury, left knee, init Office Visit 10/24/2018 9:45a [facility] Nhi aHmilton, M25.562 Pain in left at [facility].D. knee M25.561 Pain in right knee M25.462 Effusion, left knee M25.461 Effusion, right knee E66.01 Morbid (severe) obesity due to excess calories M17.0 Bilateral primary osteoarthritis of knee M23.8x2 Other internal derangements of left knee Office Visit 10/23/2018 2:30p [facility] Felice SJessica E66.01 Morbid ( severe) Services Of Chalino Billingsley M.D. obesity due to excess calories E11.42 Type 2 diabetes mellitus with diabetic polyneuropathy G43.009 Migraine w/o aura, not intractable, w/o status migrainosus Office Visit 10/17/2018 11:15a [facility] Nhi Hamilton M25.562 [facility] M[facility]462 Effusion, left knee M17.12 Unilateral primary osteoarthritis, left knee Z68.43 Body mass index (BMI) 50.0-59.9, adult E66.01 Morbid (severe) obesity due to excess calories Office Visit 10/10/2018 10:00a [facility] Internal Tuyet Alvarado, M25.562 Pain in left Medicine - Ccmob N.P. knee Office Visit 09/21/2018 9:15a [facility] And Noemy Bedolla, R06.83 Snoring Sleep Services Of [facility] Allred J45.909 Unspecified asthma, uncomplicated F17.210 Nicotine dependence, cigarettes, uncomplicated Office Visit 09/17/2018 Dam[facility] Oconnell E11.42 Type 2 diabetes 10:00a Neurologic Bereket Billingsley mellitus with Services Of [facility] diabetic polyneuropathy G43.009 Migraine w/o aura, not intractable, w/o status migrainosus Office Visit 09/13/2018 [facility] Gastroenterology Joshua Aguayo E66.01 Morbid 2:45p [facility] Juan J (severe) obesity due to excess calories E11.65 Type 2 diabetes mellitus with hyperglycemia Office 08/17/2018 [facility] Internal Tuyet E78.00 Pure hypercholesterolemia, Visit 10:20a Medicine - Varn, N.P. unspecified Ccmob E11.65 Type 2 diabetes mellitus with hyperglycemia M25.569 Pain in unspecified knee M54.5 Low back pain J45.41 Moderate persistent asthma with (acute) exacerbation F17.210 Nicotine dependence, cigarettes, uncomplicated Office Visit 08/02/2018 8:40a [facility] Luis Murdock, Z79.4 senior care Endocrinology of [facility] (current) use of insulin E11.65 Type 2 diabetes mellitus with hyperglycemia Assessments Date Code Description Provider 01/08/2019 R11.2 Nausea with vomiting, unspecified Tuyet Varn, N.P. 01/08/2019 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, not elsewhere Ronald Funez DO FAC classified 01/08/2019 R19.7 Diarrhea, unspecified Tuyet Varn, N.P. 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 Funez, DO FACC specified complication 01/08/2019 E66.8 Other obesity Ronald Funez, DO FACC 12/27/2018 S46.011D Strain of muscle(s) and tendon(s) [...] specified complication 12/19/2018 E66.8 Other obesity Ronald Funez, DO FACC 12/18/2018 R93.1 Abnormal findings on diagnostic imaging Ronald SJessica Funez, DO FACC of heart and coronary circulation 12/18/2018 I51.89 Other ill-defined heart diseases Ronald Funez, DO FACC 12/17/2018 R06.02 Shortness of breath Ronald Funez, DO FACC 12/13/2018 J06.9 Acute upper respiratory infection, Tuyet Cashn, N.P. unspecified 12/13/2018 M17.0 Bilateral primary osteoarthritis [...] Z01.810 Encounter for preprocedural Ronald Funez, DO [facility] cardiovascular examination 11/30/2018 M17.10 Unilateral primary osteoarthritis, Ronald Funez, DO [facility] unspecified knee 11/30/2018 R06.02 Shortness of breath Ronald Funez, DO [facility] 11/30/2018 R94.31 Abnormal electrocardiogram [ECG] [EKG] Ronald uFnez, [facility] 11/30/2018 Z72.0 Tobacco use Ronald Funez, [facility] 11/30/2018 Z68.43 Body mass index (BMI) 50.0-59.9, adult Ronald Funez, [facility] 11/30/2018 E66.8 Other obesity Ronaldteresa Funez, DO 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 10/24/2018 M25.462 Effusion, left knee Nhi Hamilton, M.D. 10/24/2018 M25.461 Effusion, left knee Nhi Ferreirake, M.D. 10/24/2018 E66.01 Morbid (severe) obesity due to excess Nhi Hamilton M.D. calories 10/24/2018 M17.0 Bilateral primary osteoarthritis of knee Nhi Alfonso, M.D. 10/24/2018 M23.8x2 Other internal derangements of left knee Nhi Parvin Hamilton.D. 10/23/2018 E66.01 Morbid (severe) obesity due to excess Felice Billingsley M.D. calories 10/23/2018 E11.42 Type 2 diabetes mellitus with diabetic Felice Billingsley M.D. polyneuropathy 10/23/2018 G43.009 Migraine without aura, not intractable, Felice Billingsley M.D. without status migrainosus 10/17/2018 M25.562 Pain in left knee Nhi Ferreiramanas M.D. 10/17/2018 M25.462 Effusion, left knee Nhi Ferreiramanas M.D. 10/17/2018 M17.12 Unilateral primary osteoarthritis, left Nhi Alfonso M.D. knee 10/17/2018 Z68.43 Body mass index [...] cigarettes, Tuyet Varn, N.P. 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 at [facility]02/21/2019 11:00 am - Tuyet Alvarado NElliott. at [facility] Internal Medicine - [facility]01/08/2019 - Tuyet Alvarado NElliott.R11.2 Nausea with vomiting, unspecifiedNew Medication:Omeprazole 20 mg - 1 by mouth every dayComments:Continue to stay hydrated with sips of fluids. Start taking the nausea medication, Zofran. As you feel better slowly introduce solids like dry toast or crackers, thin soups. I have prescribed Omeprazole 20 mg. Take 1 capsule daily.Referral:Aida Vila NP, Family/NPR19.7 Diarrhea, unspecifiedComments:For your diarrhea I would like you to follow a BRAT diet once your stomach feels better.B - BananasR- RiceA - ApplesauceT - Tea and toastAvoid dairy products, spicy, greasy, and gassy foods. I have ordered stool cultures to be sure you do not have a bacterial infection of your intestines. I will contact you with al of your test results. Functional Status Description No Information Available Mental Status Description No Information Available Referrals Refer to Reason for Referral Status Appt Date Aida Vila NP Patient with nausea and vomiting with diarrhea Created for 2 weeks. Has been to the ER for IV hydration, is on Ranitidine 150 mg bid. Has not started Zofran but will today. I prescribed Omeprazole 20 mg. Referred for evaluation and treatment. [address] [place] [address] [phone] Ronald Funez DO, FACC Patient is a 38 year old morbidly obese [place] woman with diabetes, hypertension, and asthma. Her EKG is abnormal. I have referred her for cardiac evaluation. Thank you for seeing this complex patient. [address] [place] [address] [phone] Irving Quiroga MD diabetic neuropathy [facility] [address] [place] [address] [phone] Yennifer Naylor M.D. bilateral CTS [facility] [address] [place] [address] [phone] Nhi Hamilton MD Patient with bilateral knee pain, particularly Sent 2018 left, referred for evaluation and treatment. Thank you for seeing this very pleasant patient. [address] [place] [address] [phone]
--- OUTSIDE RECORDS SUMMARY | 2019-01-24 19:05 | XMS REPORT | Continuity of Care Document ---
:1980 External Reference #:[id number] Author Name Shane Anderson NP (transmitted by agent of provider Jenniffer Washington) Address [address] [facility], [place] [address] Care Team Providers Name Role Phone Galo Fritz MD - Ophthalmology Care Team Information Grocery Store Manager [phone] Ronald Nunez MD - Surgery Care Team Information Grocery Store Manager [phone] Karla Rich MD - Internal Care Team Information Grocery Store Manager [facility] Lili Herrera FNP-e - Family Care Team Information Grocery Store Manager [facility] - Care Team Information Grocery Store Manager [phone] Product Safety Tester Yennifer Naylor M.D. - Surgery of Care Team Information Grocery Store Manager [phone] the Hand Problems Active Problems Provider Date [...] Rich M.D. Onset: 02/21/2017 Lymphedema Tuyet Alvarado N.Lori Onset: 09/04/2017 Allergic rhinitis Constance Larkin [...] Use Regularly uses Marijuana Smoking Status Reviewed: 01/11/19 Heavy tobacco smoker (more than 10 cigarettes/day) Exercise Type/Frequency Exercises sporadically Allergies, Adverse Reactions, Alerts Active Allergies Reaction Severity Comments Date Hydrocodone Pt states she itch all over. 05/21/2012 Latex itchy and rash 08/17/2015 Inactive Allergies NKDA 05/12/2011 Medications Active Medications SIG Qnty Indications Ordering Date Provider Xarelto 1 by mouth Ronald Oconnell 01/08/2019 20mg Tablets every day DO SIXTO Funez Omeprazole 1 by mouth 30caps R11.2 Tuyet Alvarado, 01/08/[address] every day N.P. Nicorette 1 piece of gum 220units Tuyet Alvarado, 12/24/2018 4mg Gum every 2 - 4 N.P. hours. not more than 24 per day Vitamin D Take 1 Tablet 4caps Tuyet Alvarado, 11/18/2018 (Ergocalciferol) By Mouth Once A N.P. [id number] Week For 8 Capsules Weeks Tylenol With Codeine #3 1 tablet by 21tabs M25.562 Tuyet Christiano, 2018 mouth every 8 N.P. 300-30mg Tablets hours as needed cough Topiramate 1 po qhs 30tabs G43.009 Felice Oconnell 10/23/2018 100mg Tablets Bereket Billingsley Lyrica take two caps 120caps G62.9 Felice Oconnell 09/17/2018 50mg Capsules by mouth twice Bereket Billingsley a day. brand name necessary. code c Atorvastatin Calcium take 1 tablet 90tabs E78.00 Tuyet Alvarado, 08/17/2018 20mg by mouth at N.P. Tablets bedtime Advair Diskus inhale 1 dose 60units J45.41 Tuyet Christiano, 08/17/2018 500-50mcg/Dose by mouth twice N.P. Aerosol daily (not taking) Humulin R 30 units tid-ac 50ml Luis Murdock, 08/07/2018 100Unit/ML Solution or as directed, MD OCONNOR 180 Humulin N 35 units QHS or 20ml E11.65 [facility], 08/07/2018 100Unit/ML Suspension as directed, MD OCONNOR 60 Ozempic Hold On File, 3ml E11.65 [facility], 08/02/2018 1mg/Dose Solution 1mg injection Pen-Inject once weekly, hold on file for second month Insulin Syringe/0.5ML/30G 4 times daily 150units E11.40 Luis Murdock, 06/21 X 1/2" for insulin MD 30G X 1/2" 0.5 ML Misc Blood Glucose Monitoring test blood 1units E11.65 Tuyet Christiano, 2018 System sugars once N.P. W/Device Kit fasting and 2 hours after dinner meal Blood Glucose Test test blood 100units E11.65 Tuyet Christiano, 05/03/2018 Strips sugar fasting N.P. in in the morning and 2 hours after dinner meal Mucinex twice a day as 20tabs J20.9 Tuyet Christiano, 11/02/2017 600mg Tablets ER 12HR needed N.P. Ranitidine HCL Take One Tablet 60tabs Shane Anderson NP 09/04/2017 150mg Tablets By Mouth Twice A Day Hydrochlorothiazide take 1/2 by 30tabs Ronald Oconnell 08/10/2017 25mg mouth daily DO Armin Tablets FACC Fluoxetine HCL Take One 30caps F43.23 Tuyet Alvarado, 05/23/2017 20mg Capsules Capsule By N.P. Mouth Every Day Montelukast Sodium Take One Tablet 30tabs J45.41 Tuyet Alvarado, 11/29/2016 10mg Tablets By Mouth Every N.P. Day Metformin HCL ER Take 4 Tablets 120tabs E11.65 Tuyet Alvarado, 07/14/2016 500mg Tablets By Mouth With N.P. ER 24HR Dinner Fluconazole Take 1 Tablet 2tabs Tuyet Castrejonn, 05/27/2016 150mg Tablets By Mouth Then N.P. May Repeat In 3 Days as Needed Simethicone 1 by mouth 30caps R19.7 Tuyet Castrejonn, 04/29/2016 180mg Capsules after each meal N.P. as needed Ventolin HFA Inhale Two 18units Tuyet Castrejoncarlin, 02/15/2016 108(90Base) Puffs By Mouth N.P. mcg/Act Aerosol Four Times A Day as Needed Ipratropium inhale the 180units J20.9 Tuyet Castrejonn, 08/17/2015 [place]/Albuterol Sulfate contents of one N.P. vial via 0.5-2.5(3)mg/3ML Solution nebulizer three times a day as needed for asthma Cetirizine HCL 1 by mouth 30tabs J30.9 Tuyet Castrejonn, 04/22/2015 10mg Tablets every day N.P. Ramipril Take One 30caps I10 Tuyet Castrejoncarlin, 12/17/2014 5mg Capsules Capsule By N.P. Mouth Every Day Fluticasone Propionate [place] One [place] 16units Tuyet Castrejoncarlin, 04/25/2013 In Each Nostril N.P. 50mcg/Act Suspension Every Day as Needed Methocarbamol 1 by mouth Unknown Tablets twice a day as needed for spasm History Medications Xarelto 1 by mouth twice 42tabs Ronald Funez, 12/17/2018 - 15mg daily DO FACC 01/08/2019 Tablets Benzonatate one by mouth 30caps J06.9 Tuyet Castrejoncarlin, 12/13/2018 - 200mg three times N.P. 12/27/2018 Capsules daily as needed for cough Adjust Bath/Shower 62" 307lbs dx: 1unhal Hamilton, 12/12/2018 - Seat left knee M.D. 01/10/2019 Misc meniscus tear, left knee pain Diclofenac Sodium apply 4 gms to 100gm M25.562 Tuyet Christiano, 10/10/2018 - both knees every N.P. 10/11/2018 1% Gel 6 hours as needed pain Tramadol HCL 1 tablet three 21tabs M25.562 Tuyet Alvarado, 10/10/2018 - 50mg times daily as N.P. 10/26/2018 Tablets needed Topiramate 1 qhs for 1 week 120tabs G43.009 Felice S. 09/17/2018 - 25mg then 2 qhs for 1 Bereket Billingsley 10/23/2018 Tablets week then 3 qhs for 1 week then 4 qhs Lyrica 1 by mouth every 120caps G62.9 Felice S. 09/17/2018 - 25mg night at bedtime Bereket Billingsley 09/17/2018 Capsules for 1 week then 1 twice a day for 1 week then 2 twice a day mdd 4 Ibuprofen 1 by mouth every 90tabs M54.5 Tuyet Alvarado, 08/17/2018 - 600mg 6 hours as N.P. 12/18/2018 Tablets needed for pain Onetouch Verio test four times 150units Luis Murdock MD 08/02/2018 - daily and as 01/10/2019 Strips needed Onetouch Ultrasoft use to test 300units Luis Murdock MD 08/02/2018 - Lancets blood glucose 01/10/2019 Misc three times a day and as needed Humulin 70/30 50 units Am, 30 30ml E11.65 Luis Murdock MD 08/02/2018 - Kwikpen units PM, MDD 08/07/2018 100 (70-30)100Unit/ML Supn Pen [place] 1/2" use 1 pen needle 100units E11.65 Luis Murdock MD 2018 - 3 times daily 08/07/2018 29G X 12mm Misc with insulin and Ozempic Medications Administered in Office Medication SIG Qnty Indications Ordering Provider Date Depomedrol 40MG Alfonso Torres MD 11/22/2018 Injection Depomedrol 40MG SHAMIKA Villarreal 11/21/2018 Injection Depomedrol 40MG Nhi Hamilton M.D. 10/17/2018 Injection Records Fee Tuyet Alvarado, N.P. 08/29/2018 Injection Immunizations CPT Code Status Date Vaccine Lot # [id number] Given 10/04/2016 Tdap - Tetanus/Diptheria/Acellular Pertussis [id number] Given 01/20/2015 Flu Vaccine Split Virus Preservative Free For [id number] Indiv [id number] Older [id number] Given 05/21/2012 Pneumonia Vaccine [id number] Vital Signs Date Vital Result Comment 01/11/2019 11:38am Height 63 inches 5'3" Weight 279.00 lb Heart Rate 76 /min BP Systolic 116 mmHg BP Diastolic 82 mmHg Body Temperature 97.8 F O2 % BldC Oximetry 99 % BMI (Body Mass Index) 49.4 kg/m2 01/08/2019 11:07am Height 63 inches 5'3" Weight 278.00 lb Heart Rate 78 /min BP Systolic Sitting 117 mmHg BP Diastolic Sitting 79 mmHg Body Temperature 98.4 F O2 % BldC Oximetry 98 % BMI (Body Mass Index) 49.2 kg/m2 Results Test Acquired Date Facility Test Result H/L Range Note CBC Auto 01/08/2019 [facility] White Blood 12.5 10^3/uL High 3.5-10.[address] [place] [address] [phone] Red Blood Count 5.20 10^6/uL High 3.70-4.87 Hemoglobin 14.3 g/dL Normal 12.0-16.0 Hematocrit 44 % Normal 35-47 Mean Corpuscular Volume 84 fL Normal 80-97 Mean Corpuscular Hemoglobin 28 pg Normal 27-31 Mean Corpuscular HGB Conc 33 g/dL Normal 31-36 Red Cell Distribution Width 15 % Normal 10-15 Platelet Count 398 10^3/uL Normal 150-450 Mean Platelet Volume 8.7 fL Normal 7.4-10.4 Abs Neutrophils 8.0 10^3/uL High 1.5-7.7 Abs Lymphocytes 3.4 10^3/uL Normal 1.0-4.8 Abs Monocytes 0.9 10^3/uL High 0-0.8 Abs Eosinophils 0.2 10^3/uL Normal 0-0.6 Abs Basophils 0.1 10^3/uL Normal 0-0.2 Abs Nucleated RBC 0.0 10^3/uL Granulocyte % 63.5 % Lymphocyte % 27.3 % Monocyte % 6.8 % Eosinophil % 1.6 % Basophil % 0.8 % Nucleated Red Blood Cells % 0.1 Basic Metabolic 01/08/2019 [facility] Sodium 142 mmol/L Normal 135-[address] [place] [address] [phone] Potassium 3.5 mmol/L Normal 3.5-5.0 Chloride 104 mmol/L Normal 101-111 Co2 Carbon Dioxide 28 mmol/L Normal 22-32 Anion Gap 10 mmol/L Normal 2-11 Glucose 149 mg/dL High 70-100 Blood Urea Nitrogen 14 mg/dL Normal 6-24 Creatinine 0.93 mg/dL Normal 0.51-0.95 BUN/Creatinine Ratio 15.1 Normal 8-20 Calcium 9.4 mg/dL Normal 8.6-10.3 Egfr Non- 67.1 >60 Egfr 81.2 >60 1 Laboratory 01/08/2019 [facility] TSH (Thyroid 1.81 Normal 0.34 -5.[address] Stim Horm) mcIU/[place] [address] [phone] CBC Auto Diff 01/02/2019 [facility] White Blood 13.7 High 3.5- 10.[address] Count 10^3/[place] [address] [phone] Red Blood Count 5.09 10^6/uL High 3.70-4.87 [...] Blood Cells % 0.1 Laboratory test 01/02/2019 [facility] Lactic Acid 1.6 mmol/L Normal 0.5-2.0 2 finding [address] [place] [address] [phone] Comp Metabolic 01/02/2019 [facility] Sodium 140 mmol/L Normal 135-145 Panel [address] [place] [address] [phone] Potassium 3.6 mmol/L Normal 3.5-5.0 Chloride 105 [...] Egfr Non- 67.1 >60 Egfr 81.2 >60 3 Laboratory test 01/02/2019 [facility] HCG < 0.60 mIU/ mL 4 finding [address] [place] [address] [phone] Urinalysis Profile 01/02/2019 [facility] Urine Color Negin [address] [place] [address] [phone] Urine Appearance Clear Urine Specific [place] 1.030 Normal 1.010-1.030 Urine pH 5.0 Normal [...] Present Abnormal Absent Urine Culture And 01/02/2019 [facility] Urine Culture SEE RESULT [address] [place] [address] [phone] Laboratory test 12/18/2018 [facility] Point of Care 112 mg/dL High 70-[address] Glucose 00 [place] [address] [phone] Laboratory test 12/17/2018 [facility] Magnesium 1.9 mg/dL Normal 1.9- finding [address] 2.7 [place] [address] [phone] Lipase 18 U/L Normal 11.0-82.0 Troponin-I (TnI) 0.00 ng/mL <0.04 7 HCG < 0.60 mIU/mL 8 Liver Function 12/17/2018 [facility] Total Protein 7.0 g/dL Normal 6.4-8.[address] [place] [address] [phone] Albumin 3.9 g/dL Normal 3.2-5.2 Globulin 3.1 g/dL Normal 2-4 Albumin/Globulin Ratio 1.3 Normal 1-3 Total Bilirubin 0.30 mg/dL Normal 0.2-1.0 Direct Bilirubin 0.00 mg/dL Low 0.03-0.18 Alkaline Phosphatase 83 U/L Normal 34-104 Alt 12 U/L Normal 7-52 Ast 13 U/L Normal 13-39 Basic Metabolic 12/17/2018 [facility] Sodium 141 mmol/L Normal 135-[address] [place] [address] [phone] Potassium 3.2 mmol/L Low 3.5-5.0 Chloride 106 mmol/L Normal 101-111 Co2 Carbon Dioxide 30 mmol/L Normal 22-32 Anion Gap 5 mmol/L Normal 2-11 Blood Urea Nitrogen 18 mg/dL Normal 6-24 Creatinine 0.81 mg/dL Normal 0.51-0.95 BUN/Creatinine Ratio 22.2 High 8-20 Calcium 9.1 mg/dL Normal 8.6-10.3 Egfr Non- 78.7 >60 Egfr 95.2 >60 9 Glucose 48 mg/dL Critical low 70-100 10 Laboratory test 12/17/2018 [facility] Partial 41.7 High 26.0- 38.[address] [place] [address] Time PTT [phone] Inr/Protime 12/17/2018 [facility] Inr 1.33 High 0.82-1.[address] [place] [address] [phone] CBC Auto Diff 12/17/2018 [facility] White Blood 15.9 High 3.5- 10.[address] Count 10^3/[place] [address] [phone] Red Blood Count 5.10 10^6/uL High 3.70-4.87 [...] Red Blood Cells % 0.0 Laboratory test 12/17/2018 [facility] Point of 124 mg/dL High 70-100 [address] [place] [address] [phone] Urine Culture And 11/28/2018 [facility] Urine SEE RESULT 13 , Sensitivities [address] Culture BELOW 14 [place] [address] [phone] Ua Routine 11/28/2018 [employer] [facility] House Ua Specific 1.020 [place] Ua PH 5 Ua Color dark yellow Ua Appera cloudy Ua WBC trace Ua Protein trace Ua Glucose normal Ua Ketones negative Ua Bilirubin + Ua Urobilinogen normal Ua Nitrite + Ua Occult Blood negative HIV 1&2 p24 11/22/2018 [facility] HIV 4th Nonreactive Nonreactive Screen [address] [place] [address] [phone] Laboratory 11/22/2018 [facility] Syphillis Igg Negative Negative test finding [address] W/Reflex RPR [place], [place] [phone] GC/Chlamydia 11/22/2018 [facility] Chlamydia Negative Negative Amplified Rna [address] [place] [address] Abby [phone] Neisseria gonorrhoeae (GC) Abby Negative Negative CBC Auto 11/22/2018 [facility] White Blood 15.3 10^3/uL High 3.5-10.[address] [place] [address] [phone] Red Blood Count 5.06 10^6/uL High 3.70-4.87 [...] Red Blood Cells % 0.0 Laboratory 11/22/2018 [facility] Partial 31.5 Normal 26.0- 38.0 test finding [address] [place] [address] Time PTT [phone] Inr/Protime 11/22/2018 [facility] Inr 0.95 Normal 0.82-1.[address] [place] [address] [phone] Urinalysis 11/22/2018 [facility] Urine Color Yellow [place] [address] [place] [address] [phone] Urine Appearance Cloudy Urine Specific [place] 1.022 Normal 1.010-1.030 Urine pH 5.0 Normal 5-9 Urine Urobilinogen Negative Negative Urine Ketones Negative Negative Urine Protein Negative Negative Urine Leukocytes Negative Negative Urine Blood Negative Negative Urine Nitrite Negative Negative Urine Bilirubin Negative Negative Urine Glucose 3+(>=500 mg/dL) Abnormal Negative Laboratory test 11/20/2018 [facility] Hemoglobin A1c 7.3 % High 4.0-5.[address] (Glyco HGB) [place] [address] [phone] Comp Metabolic 11/20/2018 [facility] Sodium 139 Normal 135- [address] mmol/[place] [address] [phone] Potassium 4.1 mmol/L Normal 3.5-5.0 Chloride 106 [...] Egfr Non- 68.0 >60 Egfr 82.2 >60 17 Laboratory test 10/09/2018 [facility] Surgical SEE RESULT [address] [place] [address] [phone] Laboratory test 10/09/2018 [facility] Clotest SEE RESULT [address] BEL[address] [place], [place] [address] [phone] Laboratory test 10/09/2018 [facility] Point of Care 119 mg/dL High 70-10 [address] Glucose 0 [place], [place] [address] [phone] Laboratory test 09/30/2018 [facility] Point of Care 93 mg/dL Normal 70-10 [address] Glucose 0 [place] [address] [phone] Laboratory test 09/30/2018 [facility] Point of Care 60 mg/dL Low 70-10 [address] Glucose 0 [place] [address] [phone] Laboratory test 09/30/2018 [facility] Point of Care 60 mg/dL Low 70-10 [address] Glucose 0 [place] [address] [phone] CBC Auto Diff 09/30/2018 [facility] White Blood 15.1 High 3.5- [address] Count 10^3/uL 0.8 [place] [address] [phone] Red Blood Count 5.13 10^6/uL High 3.70-4.87 [...] Blood Cells % 0.0 Comp Metabolic 09/30/2018 [facility] Sodium 139 mmol/L Normal 135-[address] [place] [address] [phone] Potassium 3.9 mmol/L Normal 3.5-5.0 Chloride 104 [...] Egfr Non- 68.0 >60 Egfr 82.2 >60 24 Inr/Protime 09/30/2018 [facility] Inr 0.97 Normal 0.82-1.[address] [place] [address] [phone] Laboratory test 09/30/2018 [facility] C Reactive 13.99 High < 8.[address] Protein mg/[place] [address] [phone] HCG < 0.60 mIU/mL 26 Protein 09/17/2018 [facility] Total 6.5 g/dL 6.3 - Electrophoresis [address] Protein(Pep) 7.9 [place] [address] [phone] Albumin 3.0 g/dL Abnormal 3.4-4.7 Alpha-1 Globulin 0.3 g/dL 0.1-0.3 Alpha-2 Globulin 1.2 g/dL Abnormal 0.6-1.0 Beta Globulin 1.2 g/dL 0.7-1.2 Gamma Globulin 0.9 g/dL 0.6-1.6 Albumin/Globulin Ratio 0.85 Impression See Comment 27 Laboratory test 09/17/2018 [facility] Folic Acid 11.94 ng/mL >3.99 28 finding 101 (Folate) [place] [address] [phone] Vitamin B12 398 pg/mL Normal 180-914 29 Lyme Screen W/ Reflex To WB Negative Negative 30 Methylmalonic Acid Mma 0.20 nmol/mL <=0.40 31 Liver Function 09/17/2018 [facility] Total Protein 6.5 g/dL Normal 6.4-8.[address] [place] [address] [phone] Albumin 3.8 g/dL Normal 3.2-5.2 Globulin 2.7 g/dL Normal 2-4 Albumin/Globulin Ratio 1.4 Normal 1-3 Total Bilirubin 0.50 mg/dL Normal 0.2-1.0 Direct Bilirubin 0.10 mg/dL Normal 0.03-0.18 Indirect Bilirubin 0.4 mg/dL Normal 0.3-1.0 Alkaline Phosphatase 91 U/L Normal 34-104 Alt 14 U/L Normal 7-52 Ast 14 U/L Normal 13-39 Lipid Profile 09/17/2018 [facility] Triglycerides 173 mg/dL 32 (Trig/Chol/HDL) [address] [place] [address] [phone] Cholesterol 128 mg/dL 33 HDL Cholesterol 34.8 mg/dL 34 LDL Cholesterol 59 mg/dL 35 Lipid Panel - 08/17/2018 [facility] Creatine 172 U/L Normal 10 -223 JFM 101 Kinase(CK) [place] [address] [phone] Comp Metabolic 08/17/2018 [facility] Sodium 138 Normal 135- [address] mmol/[place] [address] [phone] Potassium 4.5 mmol/L Normal 3.5-5.0 Chloride 103 [...] Egfr Non- 83.5 >60 Egfr 101.0 >60 36 Lipid Profile 08/17/2018 [facility] Triglycerides 180 mg/dL 37 (Trig/Chol/HDL) [address] [place], [place] [address] [phone] Cholesterol 209 mg/dL 38 HDL Cholesterol 42.0 mg/dL 39 LDL Cholesterol 131 mg/dL 40 Liver 08/17/2018 [facility] Direct Bilirubin 0.00 Low 0.03- 0.[address] mg/[place] [address] [phone] Lipid Profile 08/02/2018 [facility] Triglycerides 208 mg/dL 41 (Trig/Chol/HD [address] L) [place], [place] [address] [phone] Cholesterol 200 mg/dL 42 HDL Cholesterol 38.1 mg/dL 43 LDL Cholesterol 120 mg/dL 44 Comp Metabolic 08/02/2018 [facility] Sodium 136 mmol/L Normal 135-[address] [place] [address] [phone] Potassium 4.4 mmol/L Normal 3.5-5.0 Chloride 103 [...] Egfr Non- 73.8 >60 Egfr 89.4 >60 45 Laboratory test 08/02/2018 [facility] Hemoglobin A1c 9.0 % High 4.0-5.6 [address] (Glyco HGB) [place] [address] [phone] 1 Because ethnic data is not always [...] 5 Kidney failure <15 (or dialysis) 2 [facility] Severe Sepsis and Septic Shock Management Bundle Measure requires all lactic acids initially measuring >2.0 mmol/L be repeated. 3 Because ethnic data is not always [...] 5 Kidney failure <15 (or dialysis) 4 <5.0 Negative 5.0 - 25.0 Indeterminate (Repeat testing recommended after 72 hours) >25.0 Positive Perimenopausal women can display HCG levels of up to 20 mIU/mL 5 SEE RESULT BELOW Name: MARYA PINA I : [address]: Monica Garcia MD Acct: [id number] Unit: [id number] AGE: 38 Location: ED Re01/02/19 SEX: F Status: DEP ER SPEC: [id number] LAMBERTO: 01/02/[address]: Monica Garcia MD REQ: [id number] RECD: 01/02/19 STATUS: EDUARDO LANGFORD DR: [facility] Tuyet Alvarado MUFFLER HAND _ SOURCE: URINE SPDESC: ORDERED: Urine Culture Procedure Result Reported Site Urine Culture Final 01/03/19- 1328 ML No Growth (<1,000 CFU/mL) * ML - Main Lab . END OF REPORT DEPARTMENT OF PATHOLOGY, [address] [place] [address] Reese Fu M.D. Director [facility] # [id number] 6 Stretcher Drier Operator: [id number] 7 Troponin-I testing on Plasma Separator Tubes (PST) has a known false positive rate of 0.20-0.40%. All positive troponins reflex immediately to secondary confirmatory testing. Using the BlueSnapI 800 Access Immunoassay systems, the 99th percentile upper reference limit was demonstrated to be < 0.03 ng/mL. 8 <5.0 Negative 5.0 - 25.0 Indeterminate (Repeat testing recommended after 72 hours) >25.0 Positive Perimenopausal women can display HCG levels of up to 20 mIU/mL 9 Because ethnic data is not always readily [...] 15-29 5 Kidney failure <15 (or dialysis) 10 Critical Result GLU:48 Called to [id number] at: 16:02:31 by:[id number] Read back by:[id number] 11 Standard intensity warfarin therapeutic range: 2.0-3.0 High intensity warfarin therapeutic range: 2.5-3.5 12 Stretcher Drier Operator: [id number] 14 SEE RESULT BELOW Name: MARYA PINA Jana : [address]: Kaylah Villanueva NP Acct: [id number] Unit: [id number] AGE: 38 Location: [facility] Re11/28/18 SEX: F Status: REG REF SPEC: [id number] LAMBERTO: 11/28/18-[address]: Kaylah Villanueva NP REQ: [id number] RECD: 11/28/18 STATUS: COMP _ SOURCE: URINE SPDESC: ORDERED: Urine Culture COMMENTS: [id number] Urine Source: Random Procedure Result Reported Site Urine Culture Final 11/29/18- 1609 ML No growth of clinically significant organisms * ML - Main Lab . END OF REPORT DEPARTMENT OF PATHOLOGY, [address] [place] [address] Reese Fu M.D. Director [facility] # [id number] 15 Standard intensity warfarin therapeutic range: 2.0-3.0 High intensity warfarin therapeutic range: 2.5-3.5 16 Therapeutic target for the treatment of diabetes mellitus patients is <7% HBA1C, and in selective patients <6.0%. Please refer to [employer] diabetic care guidelines for further information. 17 Because ethnic data is not always readily [...] 15-29 5 Kidney failure <15 (or dialysis) 18 SEE RESULT BELOW Name: MARYA PINA : [address]: Joshua Arita MD Acct: [id number] Unit: [id number] AGE: 38 Location: ENDO Re10/09/18 SEX: F Status: DEP REF SPEC: [id number] LAMBERTO: 10/09/18- SUBM DR: Joshua Arita MD REQ: [id number] RECD: 10/09/18 STATUS: MARYLOU LANGFORD DR: Tuyet Alvarado MUFFLER HAND _ ORDERED: LEVEL 4 FINAL DIAGNOSIS Stomach, [...] 1120 END OF REPORT DEPARTMENT OF PATHOLOGY, [address] [place] [address] Reese Fu M.D. Director [facility] # [id number] 19 SEE RESULT BELOW Name: SILVANAANNYFN Bates : [address]: Joshua Arita MD Acct: [id number] Unit: [id number] AGE: 38 Location: ENDO Re10/09/18 SEX: F Status: DEP REF SPEC: [id number] LAMBERTO: 10/09/18-[address] [facility] [address]: Joshua Arita MD REQ: [id number] RECD: 10/09/18 STATUS: COMP ANASTASIYA DR: Tuyet Alvarado MUFFLER HAND _ SOURCE: GAS ANTRUM SPDESC: ORDERED: Clotest Procedure Result Reported Site Clotest Final 10/10/18- 845 ML Clotest Negative * ML - Main Lab . END OF REPORT DEPARTMENT OF PATHOLOGY, [address] [place] [address] Reese Fu M.D. Director [facility] # [id number] 20 Stretcher Drier Operator: [id number] Stretcher Drier Operator: [id number] 22 Stretcher Drier Operator: [id number] 23 Stretcher Drier Operator: [id number] 24 Because ethnic data is not always [...] 5 Kidney failure <15 (or dialysis) 25 Standard intensity warfarin therapeutic range: 2.0-3.0 High intensity warfarin therapeutic range: 2.5-3.5 26 <5.0 Negative 5.0 - 25.0 Indeterminate (Repeat testing recommended after 72 hours) >25.0 Positive Perimenopausal women can display HCG levels of up to 20 mIU/mL 27 RESULT: No apparent monoclonal protein on serum electrophoresis. Test Performed by: [facility] [address] [place] [address] 28 accidently received on batch 18. but specimen was not sent with batch 18. 29 Normal Range 180 to 914 Indeterminate Range 145 to 180 Deficient Range <145 30 accidently received on batch 18. but specimen was not sent with batch 18. 31 ADDITIONAL INFORMATION This test was developed and its performance characteristics determined by [facility] in a manner consistent with CLIA requirements. This test has not been cleared or approved by the U.S. Food and Drug Administration. Test Performed by: [facility] [place] - [address] [address] 32 Desirable: <150 Borderline High: 150-199 High: 200-499 Very High: >500 33 Desirable: <200 Borderline High: 200-239 High: >239 34 Low: <40 Desirable: 40-60 High: >60 35 Desirable: <100 Near Optimal: 100-129 Borderline High: 130-159 High: 160-189 Very High: >189 36 Because ethnic data is not always [...] 5 Kidney failure <15 (or dialysis) 37 Desirable: <150 Borderline High: 150-199 High: 200-499 Very High: >500 38 Desirable: <200 Borderline High: 200-239 High: >239 39 Low: <40 Desirable: 40-60 High: >60 40 Desirable: <100 Near Optimal: 100-129 Borderline High: 130-159 High: 160-189 Very High: >189 41 Desirable: <150 Borderline High: 150-199 High: 200-499 Very High: >500 42 Desirable: <200 Borderline High: 200-239 High: >239 43 Low: <40 Desirable: 40-60 High: >60 44 Desirable: <100 Near Optimal: 100-129 Borderline High: 130-159 High: 160-189 Very High: >189 45 Because ethnic data is not always readily [...] 15-29 5 Kidney failure <15 (or dialysis) 46 Therapeutic target for the treatment of diabetes mellitus patients is <7% HBA1C, and in selective patients <6.0%. Please refer to [employer] diabetic care guidelines for further information. Procedures Date Code Description Status 12/18/2018 88676 Moderate Sedation Services; Same Phys Intl 15 Mins; PT Completed >= 5 Years 12/18/2018 61497 Color Flow Doppler/Interp & Reprt Completed 12/18/2018 23466 Pulse Wave/Continuous-Interp.RPT Completed 12/18/2018 25420 Echocardiography, Transesophageal, Real Time W/Image Completed 2D W/W/O M-M 12/17/2018 19222 ECHO Transthorasic Realtime 2D W Doppler & Color Flow Completed Hosp 11/30/2018 00300 EKG Tracing & Interpretation Completed 11/22/2018 96655 EKG Tracing & Interpretation Completed 11/22/2018 85804 Inject/Drain Joint/Bursa Major W/O US Completed 11/21/2018 74982 Inject Tendon Sheath Or Ligament Aponeurosis Eg Completed Plantar Fascia 11/13/2018 72438 Polysomnography Sleep Staging 4+ Parameters Completed 10/17/2018 09863 Inject/Drain Joint/Bursa Major W/O US Completed 10/09/2018 61933 Endoscopy Upper GI Biopsy Completed 08/10/2017 [id number] Diabetic Retinal Eye Exam Completed 04/25/2016 [id number] Diabetic Retinal Eye Exam Completed 01/21/2015 [id number] Diabetic Retinal Eye Exam Completed Medical Devices Description No Information Available Encounters Type Date Location Provider Dx Diagnosis Office Visit 01/08/2019 [facility] Tuyet Varn, R11.2 Nausea with 11:00a Medicine - [facility] N.P. vomiting, unspecified R19.7 Diarrhea, unspecified Office Visit 01/08/2019 8:40a [facility] Ronald S. 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 respiratory [facility] infection, unspecified M17.0 Bilateral primary osteoarthritis of knee E11.65 Type 2 diabetes mellitus with hyperglycemia E66.01 Morbid (severe) obesity due to excess calories Office Visit 11/30/2018 [place] Ronald Oconnell Z01.810 Encounter for 8:20[facility] cardiovascular examination M17.10 Unilateral primary osteoarthritis, unspecified knee R06.02 Shortness of breath R94.31 Abnormal electrocardiogram [ECG] [EKG] Z72.0 Tobacco use Z68.43 Body mass index (BMI) 50.0-59.9, adult E66.8 Other obesity E11.9 Type 2 diabetes mellitus without complications I10 Essential (primary) hypertension E78.5 Hyperlipidemia, unspecified Office Visit 11/28/2018 11:40a [facility] Kaylah Villanueva, R35.0 Frequency of Medicine - [facility] AEROSOL SUPERVISOR micturition E11.65 Type 2 diabetes mellitus with hyperglycemia Office Visit 11/22/2018 1:30p Damon Smith S46.011A Strain of Orthopedics at [facility] Brian musc/tend the [place] rotator cuff of right shoulder, init M75.51 Bursitis of right shoulder Office Visit 11/22/2018 10:40a [facility] Tuyet Alvarado, Z01.818 Encounter for other [...] Coagulation defect, unspecified Office Visit 11/21/2018 1:45p [facility] Gabrielle Main, 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 knee M25.462 Effusion, left knee E66.01 Morbid (severe) obesity due to excess calories M17.0 Bilateral primary osteoarthritis of knee S83.242A Oth tear of medial meniscus, current injury, left knee, init Office Visit 10/24/2018 9:45a [facility] Nhi Hamilton, M25.562 Pain in left at [facility].D. knee M25.561 Pain in right knee M25.462 Effusion, left knee M25.461 Effusion, right knee E66.01 Morbid (severe) obesity due to excess calories M17.0 Bilateral primary osteoarthritis of knee M23.8x2 Other internal derangements of left knee Office Visit 10/23/2018 2:30p [facility] Felice Oconnell E66.01 Morbid ( severe) [facility] Bereket Billingsley obesity due to excess calories E11.42 Type 2 diabetes mellitus with diabetic polyneuropathy G43.009 Migraine w/o aura, not intractable, w/o status migrainosus Office Visit 10/17/2018 11:15a [facility] Nhi Hamilton, M25.562 Pain in left at [facility].D. knee M25.462 Effusion, left knee M17.12 Unilateral primary osteoarthritis, left knee Z68.43 Body mass index (BMI) 50.0-59.9, adult E66.01 Morbid (severe) obesity due to excess calories Office Visit 10/10/2018 10:00a [facility] Tuyet Alvarado, M25.562 Pain in left Medicine - [facility] N.P. knee Office Visit 09/21/2018 9:15a Pulmonology And Noemy Bedolla, R06.83 Snoring Sleep Services Of [facility] Allred J45.909 Unspecified asthma, uncomplicated F17.210 Nicotine dependence, cigarettes, uncomplicated Office Visit 09/17/2018 Damon Viveros SalomeJessica E11.42 Type 2 diabetes 10:00a Neurologic Bereket Billingsley mellitus with [facility] diabetic polyneuropathy G43.009 Migraine w/o aura, not intractable, w/o status migrainosus Office Visit 09/13/2018 [facility] Joshua Aguayo E66.01 Morbid 2:45p MD Juan J (severe) obesity due to excess calories E11.65 Type 2 diabetes mellitus with hyperglycemia Office 08/17/2018 [facility] Tuyet E78.00 Pure hypercholesterolemia, Visit 10:20a Medicine - Varn, N.P. 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 01/08/2019 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, not elsewhere Ronald Funez DO FAC classified 01/08/2019 R19.7 Diarrhea, unspecified Tuyet Varn, N.P. 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 Ronaldteresa Funez, DO FACC 12/26/2018 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, not elsewhere Ronaldteresa Barthno, DO FACC classified 12/26/2018 E11.69 Type 2 diabetes mellitus with other Ronaldteresa Barthno, DO FACC specified complication 12/26/2018 Z72.0 Tobacco use Ronaldteresa Barthno, DO FACC 12/26/2018 E66.8 Other obesity Ronald SJessica Funez, DO FACC 12/19/2018 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 Ronald SJessica Funez, DO FACC 12/19/2018 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, not elsewhere Ronaldteresa Barthno, DO FACC classified 12/19/2018 Z72.0 Tobacco use Ronaldteresa Barthno, DO FACC 12/19/2018 E11.69 Type 2 diabetes mellitus with other Ronaldteresa Funez, DO FACC specified complication 12/19/2018 E66.8 Other obesity Ronald SJessica Funez, DO FACC 12/18/2018 R93.1 Abnormal findings on diagnostic imaging Ronald Funez, DO FAC of heart and coronary circulation 12/18/2018 I51.89 Other ill-defined heart diseases Ronald SalomeJessica Funez DO FACC 12/17/2018 R06.02 Shortness of [...] 11/30/2018 Z01.810 Encounter for preprocedural Ronald Funez, [facility] cardiovascular examination 11/30/2018 M17.10 Unilateral primary osteoarthritis, Ronald Funez, DO [facility] unspecified knee 11/30/2018 R06.02 Shortness of breath Ronaldteresa Funez, [facility] 11/30/2018 R94.31 Abnormal electrocardiogram [ECG] [EKG] Ronald Funez, [facility] 11/30/2018 Z72.0 Tobacco use Ronald Funez, [facility] 11/30/2018 Z68.43 Body mass index (BMI) 50.0-59.9, adult Ronald Funez, [facility] 11/30/2018 E66.8 Other obesity Ronaldteresa Funez [facility] 11/30/2018 E11.9 Type 2 diabetes mellitus without Ronald Funez, [facility] complications 11/30/2018 I10 Essential (primary) hypertension Ronaldteresa Funez, [facility] 11/30/2018 E78.5 Hyperlipidemia, unspecified Ronald Funez, [facility] 11/28/2018 R35.0 Frequency of micturition Kaylah Villanueva, AEROSOL SUPERVISOR 11/28/2018 E11.65 Type 2 diabetes mellitus with Zsofia Rich, AEROSOL SUPERVISOR hyperglycemia 11/22/2018 R94.31 Abnormal electrocardiogram [ECG] [EKG] Christina Dunlap MD 11/22/2018 S46.011A Strain of muscle(s) and tendon(s) of the Alfonso Torres MD rotator cuff of right shoulder, initial encounter 11/22/2018 Z01.818 Encounter for other preprocedural Tuyet Alvarado, N.P. examination 11/22/2018 M75.51 Bursitis of right shoulder Alfonso Torres MD 11/22/2018 S83.242A Other tear of medial meniscus, current Tuyet Alvarado, N.P. injury, left knee, initial encounter 11/22/2018 E11.42 Type 2 diabetes mellitus with diabetic Tuyet Alvarado, N.P. polyneuropathy 11/22/2018 Z68.43 Body mass index (BMI) 50.0-59.9, adult Tuyet Alvarado, N.P. 11/22/2018 E78.5 Hyperlipidemia, unspecified Tuyet Alvarado, N.P. 11/22/2018 J45.40 Moderate persistent asthma, Tuyet Alvarado, N.P. uncomplicated 11/22/2018 R94.31 Abnormal electrocardiogram [ECG] [...] left knee Luis Murdock MD 11/20/2018 Z79.4 nursing home (current) use of insulin Luis Murdock [...] Hamilton M.D. 10/24/2018 M25.461 Effusion, left knee NhiAyana ParisiDJessica 10/24/2018 E66.01 Morbid (severe) obesity due to excess Nhi Hamilton M.D. calories 10/24/2018 M17.0 Bilateral primary osteoarthritis of knee Ayana OliverDJessica 10/24/2018 M23.8x2 Other internal derangements of left [...] cigarettes, Tuyet Varn, N.P. uncomplicated 08/02/2018 Z79.4 nursing home (current) use of insulin Luis Murdock MD 08/02/2018 E11.65 Type 2 diabetes mellitus with Luis Murdock MD hyperglycemia Plan of Treatment Future Appointment(s):01/21/2019 8:00 am - Ronald Funez DO FACC at [facility] AT [facility]02/06/2019 8:30 am - Yennifer Painting NP at [facility]02/07/2019 8:45 am - Alfonso Torres MD at [facility] at [id number]/20/2019 9:00 am - Luis Murdock MD at [facility]01/29/2019 11:45 am - Felice Billingsley M.D. at [facility]02/21/2019 11:00 am - Tuyet Alvarado N.P. at [facility] - [facility]01/11/2019 - Shane Anderson, NPR19.7 Diarrhea, unspecifiedComments:I recommend a BRAT diet. Bananas, Rice, Applesauce, and [place].Avoid dairy, greasy, spicy, or gassy foods.You can try an over the counter probiotic such as Align.Make sure you drink plenty of fluids to stay hydrated.You can try taking imodium AD per package instructions.R11.2 Nausea with vomiting, unspecifiedComments:I recommend starting the Omeprazole and Zofran as directed.We will notify you of the results of the stool tests. Functional Status Description No Information Available Mental Status Description No Information Available Referrals Refer to Reason for Referral Status Appt Date Aida Vila NP Patient with nausea and vomiting with diarrhea Scheduled 01/15/2019 for 2 weeks. Has been to the ER for IV hydration, is on Ranitidine 150 mg bid. Has not started Zofran but will today. I prescribed Omeprazole 20 mg. Referred for evaluation and treatment. [address] [id number] [phone] Ronald Funez DO, FACC Patient is a 38 year old morbidly obese [place] woman with diabetes, hypertension, and asthma. Her EKG is abnormal. I have referred her for cardiac evaluation. Thank you for seeing this complex patient. [address] [place] [address] [phone] Irving Quiroga MD diabetic neuropathy [address] [place] [address] [phone] Yennifer Naylor M.D. bilateral CTS [place] [address] [place] [place] [address] [phone] Nhi Hamilton MD Patient with bilateral knee pain, particularly [place] 2018 left, referred for evaluation and treatment. Thank you for seeing this very pleasant patient. [address] [place] [id number] [phone]
--- OUTSIDE RECORDS SUMMARY | 2019-01-24 19:05 | XMS REPORT | Continuity of Care Document ---
:1980 External Reference #:[id number] Author Name Ronald Funez DO FAC (transmitted by agent of provider Triny Espinal) Address [address] [place] [address] Care Team Providers Name Role Phone Galo Fritz MD - Ophthalmology Care Team Information Network Relations Consultant Ronald Nunez MD - Surgery Care Team Information Network Relations Consultant [phone] Karla Rich MD - Internal Care Team Information Network Relations Consultant [facility] Lili Herrera FNP-Cde - Family Care Team Information Network Relations Consultant [facility] - Care Team Information Network Relations Consultant Breastfeeding Program Coordinator Yennifer Naylor M.D. - Surgery of Care Team Information Network Relations Consultant [phone] the Hand Problems Active Problems Provider Date [...] 20mg Tablets day Funez, DO 9 FACC Nicorette 1 piece of gum 220units [place] 4mg Gum every 2 - 4 Varn, N.P. 9 hours. not more than 24 per day Adjust Bath/Shower Seat 62" 307lbs dx: 1units Nhi Hamilton, Misc left knee M.D. 9 meniscus tear, left knee pain Vitamin D Take 1 Tablet By 4caps Tuyet (Ergocalciferol) Mouth Once A Week Varn, N.P. 9 60086Ehpe For 8 Weeks Capsules Tylenol With Codeine #3 1 tablet by mouth 21tabs M25.562 Tuyet every 8 hours as Varn, N.P. 9 300-30mg Tablets needed cough Topiramate 1 po qhs 30tabs G43.009 [facility] Bereket Billingsley 9 Lyrica take two caps by 120caps G62.9 Felice SJessica 50mg Capsules mouth twice a Jose Cruz, M.D. 9 day. brand name necessary. code c Atorvastatin Calcium take 1 tablet by 90tabs E78.00 [place] 20mg mouth at bedtime Varn, N.P. 9 Tablets Advair Diskus inhale 1 dose by 60units J45.41 [place] 500-50mcg/Dose mouth twice daily Varn, N.P. 9 Aerosol (not taking) Humulin N 35 units QHS or 20ml E11.65 [facility], 100Unit/ML Suspension as directed, MDD MD Blake 60 Humulin R 30 units tid-ac 50ml [facility], 100Unit/ML Solution or as directed, MD Hayden OCONNOR 180 Ozempic Hold On File, 1mg 3ml 65 [facility], 1mg/Dose Solution injection once MD Blake Pen-Inject weekly, hold on file for second month Onetouch Ultrasoft use to test blood 300units [facility], Lancets glucose three MD Blake Misc times a day and as needed Onetouch Verio test four times 150units [facility], Strips daily and as MD Blake needed Insulin Syringe/0.5ML/30G 4 times daily for 150units E11.40 [facility], X 1/2" insulin MD Blake 30G X 1/2" 0.5 ML [facility] Blood Glucose Monitoring test blood sugars 1units E11.65 [place] System once fasting and Varn, N.P. 9 W/Device Kit 2 hours after dinner meal Blood Glucose Test test blood sugar 100units E11.65 [place] Strips fasting in in the Varn, N.P. 9 morning and 2 hours after dinner meal Lancet Device use when testing 100units E11.65 [place] [facility] blood gluose Varn, N.P. 9 Pantoprazole Sodium Take One Tablet 30tabs [place] 20mg By Mouth Every Varn, N.P. [address] Day Mucinex twice a day as 20tabs J20.9 [place] 600mg Tablets ER 12HR needed Varn, N.P. 8 Ranitidine HCL Take One Tablet 60tabs Shane Anderson, 150mg Tablets By Mouth Twice A CLUBHOUSE ATTENDANT 8 Day Hydrochlorothiazide take 1/2 by mouth 30tabs Ronald Kourtney 25mg daily Funez, DO 8 Tablets FACC Glucose Meter Test Strips for use 3-4 times 100units [place] Advanced daily Varn, N.P. 8 Strips Nebulizer use three times a 1units [place] Kit/Tubing/Mouthpiece day as needed Varn, N.P. 8 Kit Fluoxetine HCL Take One Capsule 30caps F43.23 [place] 20mg Capsules By Mouth Every Varn, N.P. 8 Day Montelukast Sodium Take One Tablet 30tabs J45.41 [place] 10mg Tablets By Mouth Every Varn, N.P. 7 Day Freestyle Lancets test up to 2 300units [place] Misc times a day or as Varn, N.P. 7 needed Metformin HCL ER Take 4 Tablets By 120tabs E11.65 [place] 500mg Tablets Mouth With Dinner Varn, N.P. 7 ER 24HR Fluconazole Take 1 Tablet By 2tabs [place] 150mg Tablets Mouth Then May Varn, N.P. 7 Repeat In 3 Days as Needed Simethicone 1 by mouth after 30caps R19.7 [place] 180mg Capsules each meal as Varn, N.P. 7 needed Ventolin HFA Inhale Two Puffs 18units [place] 108(90Base) By Mouth Four Varn, N.P. 6 mcg/Act Aerosol Times A Day as Needed Freestyle Lite Blood check fingerstick 1units E11.65 [place] Glucose Monitoring System three times daily Varn, N.P. 6 or as needed, DX Device - E11.65 Nebulizer use three times a 1units J20.9 [place] Device day as needed Varn, N.P. 6 Ipratropium inhale the 180units J20.9 [place] Odin/Albuterol Sulfate contents of one Varn, N.P. 6 vial via 0.5-2.5(3)mg/3ML Solution nebulizer three times a day as needed for asthma Senna Laxative 1 tab by mouth 15tabs K59.00 Noemy 25mg Tablets 1-2 times as MD Graeme 6 needed Compression Stockings knee high 2units I80.02 [place] Misc stockings 20 - 30 Varn, N.P. 6 mm Cetirizine HCL 1 by mouth every 30tabs J30.9 [place] 10mg Tablets day Varn, N.P. 6 Ramipril Take One Capsule 30caps I10 [place] 5mg Capsules By Mouth Every Varn, N.P. 5 Day Fluticasone Propionate [place] One [place] 16units [place] In Each Nostril Varn, N.P. 4 50mcg/Act Suspension Every Day as Needed Nebulizer J45.909 Cristina Garcia, Compressor/Dualfilter/7' M.D. 3 Tubing/Aerosol T/Mthpiece Kit Methocarbamol 1 by mouth twice Unknown 0000/000 Tablets a day as needed 0 for spasm History Medications Xarelto 1 by mouth twice 42tabs Ronald Funez, 12/17/2018 - 15mg daily DO [facility] 01/08/2019 Tablets Benzonatate one by mouth 30caps [...] PM, MDD 08/07/2018 100 (70-30)100Unit/ML Supn Pen [place] 1/2" use 1 pen needle 100units E11.65 [...] CPT Code Status Date Vaccine Lot # [id number] Given 10/04/2016 Tdap - Tetanus/Diptheria/Acellular Pertussis [id number] Given 01/20/2015 Flu Vaccine Split Virus Preservative Free For [id number] Indiv [id number] Older [id number] Given 05/21/2012 Pneumonia Vaccine [id number] Vital Signs Date Vital Result Comment 01/08/2019 8:24am Height 63 inches 5'3" Weight 277.00 lb with shoes Heart Rate 80 /min BP Systolic Sitting 112 mmHg Rue large cuff BP Diastolic Sitting 76 mmHg Rue large cuff BP Systolic Standing 106 mmHg Rue large cuff BP Diastolic Standing 70 mmHg Rue large cuff Respiratory Rate 13 /min BMI (Body Mass Index) 49.1 kg/m2 Ejection Fraction 55-60% ECHO 12/17/2018 12/27/2018 9:10am Height 63 inches 5'3" Weight 291.00 lb Heart Rate 72 /min BP Systolic 138 mmHg BP Diastolic 82 mmHg Respiratory Rate 18 /min Body Temperature 97.0 F Pain Level 0 BMI (Body Mass Index) 51.5 kg/m2 Results Test Acquired Date Facility Test Result H/L Range Note CBC Auto 01/02/2019 [facility] White Blood 13.7 10^3/uL High 3.5-10.[address] [place] [address] [phone] Red Blood Count 5.09 10^6/uL High 3.70-4.87 [...] Blood Cells % 0.1 Laboratory test 01/02/2019 [facility] Lactic Acid 1.6 mmol/L Normal 0.5-2.0 [address] [place] [address] [phone] Comp Metabolic 01/02/2019 [facility] Sodium 140 mmol/L Normal 135-[address] [place] [address] [phone] Potassium 3.6 mmol/L Normal 3.5-5.0 Chloride 105 [...] Egfr 81.2 >60 2 Laboratory test 01/02/2019 [facility] HCG < 0.60 mIU/ mL [address] [place] [address] [phone] Urinalysis Profile 01/02/2019 [facility] Urine Color Negin [address] [place] [address] [phone] Urine Appearance Clear Urine Specific [place] 1.030 Normal 1.010-1.030 Urine pH 5.0 Normal [...] Present Abnormal Absent Urine Culture And 01/02/2019 [facility] Urine SEE RESULT [address] [place] [place] [address] [phone] Laboratory test 12/18/2018 [facility] Point of 112 mg/dL High 70-10 [address] Care Glucose 0 [place] [address] [phone] Laboratory test 12/17/2018 [facility] Point of 124 mg/dL High 70-10 [address] Care Glucose 0 [place] [address] [phone] CBC Auto Diff 12/17/2018 [facility] White Blood 15.9 High 3.5- [address] Count 10^3/uL 0.8 [place] [address] [phone] Red Blood Count 5.10 10^6/uL High 3.70-4.87 [...] Red Blood Cells % 0.0 Inr/Protime 12/17/2018 [facility] Inr 1.33 High 0.82-1.[address] [place] [address] [phone] Laboratory test 12/17/2018 [facility] Partial 41.7 High 26.0- 38.[address] [place] [address] Time PTT [phone] Basic Metabolic 12/17/2018 [facility] Sodium 141 mmol/L Normal 135-[address] [place] [address] [phone] Potassium 3.2 mmol/L Low 3.5-5.0 Chloride 106 mmol/L Normal 101-111 Co2 Carbon Dioxide 30 mmol/L Normal 22-32 Anion Gap 5 mmol/L Normal 2-11 Blood Urea Nitrogen 18 mg/dL Normal 6-24 Creatinine 0.81 mg/dL Normal 0.51-0.95 BUN/Creatinine Ratio 22.2 High 8-20 Calcium 9.1 mg/dL Normal 8.6-10.3 Egfr Non- 78.7 >60 Egfr 95.2 >60 8 Glucose 48 mg/dL Critical low 70-100 9 Liver Function 12/17/2018 [facility] Total Protein 7.0 g/dL Normal 6.4-8.[address] [place] [address] [phone] Albumin 3.9 g/dL Normal 3.2-5.2 Globulin 3.1 g/dL Normal 2-4 Albumin/Globulin Ratio 1.3 Normal 1-3 Total Bilirubin 0.30 mg/dL Normal 0.2-1.0 Direct Bilirubin 0.00 mg/dL Low 0.03-0.18 Alkaline Phosphatase 83 U/L Normal 34-104 Alt 12 U/L Normal 7-52 Ast 13 U/L Normal 13-39 Laboratory test 12/17/2018 [facility] Magnesium 1.9 mg/dL Normal 1.9-2.[address] [place] [address] [phone] Lipase 18 U/L Normal 11.0-82.0 Troponin-I (TnI) 0.00 ng/mL <0.04 10 HCG < 0.60 mIU/mL 11 Ua Routine 11/28/2018 [employer] Ua Specific [place] 1.020 Ua PH 5 Ua Color dark yellow Ua Appera cloudy Ua WBC trace Ua Protein trace Ua Glucose normal Ua Ketones negative Ua Bilirubin + Ua Urobilinogen normal Ua Nitrite + Ua Occult Blood negative Urine Culture 11/28/2018 [facility] Urine Culture SEE RESULT 12, And [address] BELOW 13 [place] [address] [phone] HIV 1&2 p24 11/22/2018 [facility] HIV 4th Nonreactive Nonreactive Screen [address] [place] [address] [phone] Laboratory test 11/22/2018 [facility] Syphillis Igg Negative Negative finding [address] W/[place] [address] [phone] GC/Chlamydia 11/22/2018 [facility] Chlamydia Negative Negative Amplified Rna [address] [place] [address] Abby [phone] Neisseria gonorrhoeae (GC) Abby Negative Negative CBC Auto 11/22/2018 [facility] White Blood 15.3 10^3/uL High 3.5-10.8 Diff [address] [place] [address] [phone] Red Blood Count 5.06 10^6/uL High 3.70-4.87 [...] Red Blood Cells % 0.0 Laboratory 11/22/2018 [facility] Partial 31.5 Normal 26.0- 38.[address] [place] [address] Time PTT [phone] Inr/Protime 11/22/2018 [facility] Inr 0.95 Normal 0.82-1.[address] [place] [address] [phone] Urinalysis 11/22/2018 [facility] Urine Color Yellow [place] [address] [place] [address] [phone] Urine Appearance Cloudy Urine Specific [place] 1.022 Normal 1.010-1.030 Urine pH 5.0 Normal 5-9 Urine Urobilinogen Negative Negative Urine Ketones Negative Negative Urine Protein Negative Negative Urine Leukocytes Negative Negative Urine Blood Negative Negative Urine Nitrite Negative Negative Urine Bilirubin Negative Negative Urine Glucose 3+(>=500 mg/dL) Abnormal Negative Laboratory test 11/20/2018 [facility] Hemoglobin A1c 7.3 % High 4.0-5.6 [address] (Glyco HGB) [place] [address] [phone] Comp Metabolic 11/20/2018 [facility] Sodium 139 Normal 135- [address] mmol/[place] [address] [phone] Potassium 4.1 mmol/L Normal 3.5-5.0 Chloride 106 [...] Egfr 82.2 >60 16 Laboratory test 10/09/2018 [facility] Surgical SEE RESULT [address] [place] [address] [phone] Laboratory test 10/09/2018 [facility] Clotest SEE RESULT [address] [place] [address] [phone] Laboratory test 10/09/2018 [facility] Point of Care 119 mg/dL High 70-10 [address] Glucose 0 [place] [address] [phone] Laboratory test 09/30/2018 [facility] Point of Care 93 mg/dL Normal 70-10 [address] Glucose 0 [place] [address] [phone] Laboratory test 09/30/2018 [facility] Point of Care 60 mg/dL Low 70-10 [address] Glucose 0 [place] [address] [phone] Laboratory test 09/30/2018 [facility] Point of Care 60 mg/dL Low 70-10 [address] Glucose 0 [place] [address] [phone] CBC Auto Diff 09/30/2018 [facility] White Blood 15.1 High 3.5- [address] Count 10^3/uL 0.8 [place] [address] [phone] Red Blood Count 5.13 10^6/uL High 3.70-4.87 [...] Blood Cells % 0.0 Comp Metabolic 09/30/2018 [facility] Sodium 139 mmol/L Normal 135-[address] [place] [address] [phone] Potassium 3.9 mmol/L Normal 3.5-5.0 Chloride 104 [...] Egfr 82.2 >60 23 Laboratory test 09/30/2018 [facility] C Reactive 13.99 mg/L High <8.[address] [place] [address] [phone] HCG < 0.60 mIU/mL 24 Inr/Protime 09/30/2018 [facility] Inr 0.97 Normal 0.82-1.[address] [place] [address] [phone] Lipid Profile 09/17/2018 [facility] Triglycerides 173 26 (Trig/Chol/HDL) [address] mg/[place] [address] [phone] Cholesterol 128 mg/dL 27 HDL Cholesterol 34.8 mg/dL 28 LDL Cholesterol 59 mg/dL 29 Protein 09/17/2018 [facility] Total 6.5 g/dL 6.3 - Electrophoresis [address] Protein(Pep) 7.9 [place] [address] [phone] Albumin 3.0 g/dL Abnormal 3.4-4.7 Alpha-1 Globulin 0.3 g/dL 0.1-0.3 Alpha-2 Globulin 1.2 g/dL Abnormal 0.6-1.0 Beta Globulin 1.2 g/dL 0.7-1.2 Gamma Globulin 0.9 g/dL 0.6-1.6 Albumin/Globulin Ratio 0.85 Impression See Comment 30 Laboratory test 09/17/2018 [facility] Folic Acid 11.94 ng/mL >3.99 31 finding 101 (Folate) [place] [address] [phone] Vitamin B12 398 pg/mL Normal 180-914 32 Lyme Screen W/ Reflex To WB Negative Negative 33 Methylmalonic Acid Mma 0.20 nmol/mL <=0.40 34 Liver Function 09/17/2018 [facility] Total Protein 6.5 g/dL Normal 6.4-8.9 [place] [address] [phone] Albumin 3.8 g/dL Normal 3.2-5.2 Globulin 2.7 g/dL Normal 2-4 Albumin/Globulin Ratio 1.4 Normal 1-3 Total Bilirubin 0.50 mg/dL Normal 0.2-1.0 Direct Bilirubin 0.10 mg/dL Normal 0.03-0.18 Indirect Bilirubin 0.4 mg/dL Normal 0.3-1.0 Alkaline Phosphatase 91 U/L Normal 34-104 Alt 14 U/L Normal 7-52 Ast 14 U/L Normal 13-39 Liver 08/17/2018 [facility] Direct Bilirubin 0.00 Low 0.03- 0.18 Function mg/[place] [address] [phone] Lipid Profile 08/17/2018 [facility] Triglycerides 180 mg/dL 35 (Trig/Chol/HD L) [place] [address] [phone] Cholesterol 209 mg/dL 36 HDL Cholesterol 42.0 mg/dL 37 LDL Cholesterol 131 mg/dL 38 Comp Metabolic 08/17/2018 [facility] Sodium 138 mmol/L Normal 135-145 [place] [address] [phone] Potassium 4.5 mmol/L Normal 3.5-5.0 Chloride 103 [...] Egfr 101.0 >60 39 Lipid Panel 08/17/2018 [facility] Creatine 172 U/L Normal 10- 223 - JFM [address] Kinase(CK) [place], [place] [phone] Lipid 08/02/2018 [facility] Triglycerides 208 [address] mg/dL (Trig/Chol/[place] [address] DL) [phone] Cholesterol 200 mg/dL 41 HDL Cholesterol 38.1 mg/dL 42 LDL Cholesterol 120 mg/dL 43 Comp Metabolic 08/02/2018 [facility] Sodium 136 mmol/L Normal 135-[address] [place] [address] [phone] Potassium 4.4 mmol/L Normal 3.5-5.0 Chloride 103 [...] Egfr 89.4 >60 44 Laboratory test 08/02/2018 [facility] Hemoglobin A1c 9.0 % High 4.0-5.[address] (Glyco HGB) [place] [address] [phone] 1 [facility] Severe Sepsis and Septic Shock Management Bundle [...] [address]: Monica Garcia MD Acct: [id number] Unit: [id number] AGE: 38 Location: ED Re01/02/19 SEX: F Status: DEP ER SPEC: [id number] LAMBERTO: 01/02/[address]: Monica Garcia MD REQ: [id number] RECD: 01/02/19 STATUS: COMP [facility] [address]: [facility] Tuyet Alvarado CLUBHOUSE ATTENDANT _ SOURCE: URINE SPDESC: ORDERED: Urine Culture Procedure Result Reported Site Urine Culture Final 01/03/19- 1328 ML No Growth (<1,000 CFU/mL) * ML - Main Lab . END OF REPORT DEPARTMENT OF PATHOLOGY, [address] [place] [address] Reese Fu M.D. Director [facility] # [id number] 5 Focusing Machine Operator: [id number] Focusing Machine Operator: [id number] 7 Standard intensity warfarin therapeutic range: 2.0-3.0 [...] dialysis) 9 Critical Result GLU:48 Called to [id number] at: 16:02:31 by:[id number] Read back by:[id number] 10 Troponin-I testing on Plasma Separator Tubes (PST) has a known false positive rate of 0.20-0.40%. All positive troponins reflex immediately to secondary confirmatory testing. Using the Vendigi 800 Access Immunoassay systems, the 99th percentile upper reference limit was demonstrated to be < 0.03 ng/mL. 11 <5.0 Negative 5.0 - 25.0 Indeterminate (Repeat testing recommended after 72 hours) >25.0 Positive Perimenopausal women can display HCG levels of up to 20 mIU/mL 12 [id number] 13 SEE RESULT BELOW Name: MARYA PINA : [address]: Kaylah Villanueva NP Acct: [id number] Unit: [id number] AGE: 38 Location: [facility] Re11/28/18 SEX: F Status: REG REF SPEC: [id number] LAMBERTO: 11/28/18-[address] [facility] [address]: Kaylah Villanueva NP REQ: [id number] RECD: 11/28/18 STATUS: COMP _ SOURCE: URINE SPDES: ORDERED: Urine Culture COMMENTS: [id number] Urine Source: Random Procedure Result Reported Site Urine Culture Final 11/29/18- 1609 ML No growth of clinically significant organisms * ML - Main Lab . END OF REPORT DEPARTMENT OF PATHOLOGY, [address] [place] [address] Reese Fu M.D. Director [facility] # [id number] 14 Standard intensity warfarin therapeutic range: 2.0-3.0 High intensity warfarin therapeutic range: 2.5-3.5 15 Therapeutic target for the treatment of diabetes mellitus patients is <7% HBA1C, and in selective patients <6.0%. Please refer to [place] [employer] diabetic care guidelines for further [...] (or dialysis) 17 SEE RESULT BELOW Name: SILVANAMARYA Jana : [address]: Joshua Arita MD Acct: [id number] Unit: [id number] AGE: 38 Location: ENDO Re10/09/18 SEX: F Status: DEP REF SPEC: [id number] LAMBERTO: 10/09/18- SUBM DR: Joshua Arita MD REQ: [id number] RECD: 10/09/181054 STATUS: MARYLOU LANGFORD DR: Tuyet Alvarado CLUBHOUSE ATTENDANT _ ORDERED: LEVEL 4 FINAL DIAGNOSIS Stomach, [...] 1120 END OF REPORT DEPARTMENT OF PATHOLOGY, [address] [place] [address] Reese Fu M.D. Director [facility] # [id number] 18 SEE RESULT BELOW Name: MARYA PINA : [address]: Joshua Arita MD Acct: [id number] Unit: [id number] AGE: 38 Location: ENDO Re10/09/18 SEX: F Status: DEP REF SPEC: [id number] LAMBERTO: 10/09/18 [facility] [address]: Joshua Arita MD REQ: [id number] RECD: 10/09/18 STATUS: COMP TAMMIEHR DR: Tuyet Alvarado CLUBHOUSE ATTENDANT _ SOURCE: GAS ANTRUM SPDESC: ORDERED: Clotest Procedure Result Reported Site Clotest Final 10/10/18845 ML Clotest Negative * ML - Main Lab . END OF REPORT DEPARTMENT OF PATHOLOGY, [address] [place] [address] Reese Fu M.D. Director [facility] # [id number] 19 Focusing Machine Operator: [id number] 20 Focusing Machine Operator: [id number] 21 Focusing Machine Operator: [id number] 22 Focusing Machine Operator: [id number] 23 Because ethnic data is not always [...] protein on serum electrophoresis. Test Performed by: [facility] [address] [place] [address] 31 accidently received on batch 18. but specimen was not sent with batch 18. 32 Normal Range 180 to 914 Indeterminate Range 145 to 180 Deficient Range <145 33 accidently received on batch 18. but specimen was not sent with batch 18. 34 ADDITIONAL INFORMATION This test was developed and its performance characteristics determined by [facility] in a manner consistent with CLIA requirements. This test has not been cleared or approved by the U.S. Food and Drug Administration. Test Performed by: [facility] - [address] [address] 35 Desirable: <150 Borderline High: 150-199 High: [...] in selective patients <6.0%. Please refer to [place] [employer] diabetic care guidelines for further information. Procedures Date Code Description Status 12/18/2018 82728 Moderate Sedation Services; Same Phys Intl 15 Mins; PT Completed >= 5 Years 12/18/2018 72887 Color Flow Doppler/Interp & Reprt Completed 12/18/2018 80895 Pulse Wave/Continuous-Interp.RPT Completed 12/18/2018 75925 Echocardiography, Transesophageal, Real Time W/Image Completed 2D W/W/O M-M 12/17/2018 39990 ECHO Transthorasic Realtime 2D W Doppler & Color Flow Completed Hosp 11/30/2018 24335 EKG Tracing & Interpretation Completed 11/22/2018 62700 EKG Tracing & Interpretation Completed 11/22/2018 94887 Inject/Drain Joint/Bursa Major W/O US Completed 11/21/2018 03050 Inject Tendon Sheath Or Ligament Aponeurosis Eg Completed Plantar Fascia 11/13/2018 22002 Polysomnography Sleep Staging 4+ Parameters Completed 10/17/2018 20422 Inject/Drain Joint/Bursa Major W/O US Completed 10/09/2018 25758 Endoscopy Upper GI Biopsy Completed 08/10/2017 518244734 Diabetic Retinal Eye Exam Completed 04/25/2016 [id number] Diabetic Retinal Eye Exam Completed 01/21/2015 643573244 Diabetic Retinal Eye Exam Completed Medical Devices Description No Information Available Encounters Type Date Location Provider Dx Diagnosis Office Visit 12/26/2018 [facility] Ronald Funez, 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 respiratory Ccmob infection, unspecified M17.0 Bilateral primary osteoarthritis of knee E11.65 Type 2 diabetes mellitus with hyperglycemia E66.01 Morbid (severe) obesity due to excess calories Office Visit 11/30/2018 [facility] Oconnell Z01.810 Encounter for 8:20a Cardiology Mamta Funez DO preprocedural [facility] cardiovascular examination M17.10 Unilateral primary osteoarthritis, unspecified knee R06.02 Shortness of breath R94.31 Abnormal electrocardiogram [ECG] [EKG] Z72.0 Tobacco use Z68.43 Body mass index (BMI) 50.0-59.9, adult E66.8 Other obesity E11.9 Type 2 diabetes mellitus without complications I10 Essential (primary) hypertension E78.5 Hyperlipidemia, unspecified Office Visit 11/28/2018 11:40a [facility] [facility] Internal Kaylah Villanueva, R35.0 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 E11.65 Type 2 diabetes mellitus with hyperglycemia Office Visit 11/22/2018 1:30p Damon Smith S46.011A Strain of Orthopedics at [facility] Brian musc/tend the [place] rotator cuff of right shoulder, init M75.51 Bursitis of right shoulder Office Visit 11/22/2018 10:40a [facility] Internal Tuyet Alvarado, Z01.818 Encounter for other [...] Coagulation defect, unspecified Office Visit 11/21/2018 1:45p [facility] Gabrielle Main, 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 knee M25.462 Effusion, left knee E66.01 Morbid (severe) obesity due to excess calories M17.0 Bilateral primary osteoarthritis of knee S83.242A Oth tear of medial meniscus, current injury, left knee, init Office Visit 10/24/2018 9:45a [facility] Nhi Hamilton, M25.562 Pain in left at [facility].D. knee M25.561 Pain in right knee M25.462 Effusion, left knee M25.461 Effusion, right knee E66.01 Morbid (severe) obesity due to excess calories M17.0 Bilateral primary osteoarthritis of knee M23.8x2 Other internal derangements of left knee Office Visit 10/23/2018 2:30p [facility] Felice Oconnell E66.01 Morbid ( severe) Services Of Chalino Billingsley M.D. obesity due to excess calories E11.42 Type 2 diabetes mellitus with diabetic polyneuropathy G43.009 Migraine w/o aura, not intractable, w/o status migrainosus Office Visit 10/17/2018 11:15a [facility] Nhi Hamilton M25.562 [facility]462 Effusion, left knee M17.12 Unilateral primary osteoarthritis, left knee Z68.43 Body mass index (BMI) 50.0-59.9, adult E66.01 Morbid (severe) obesity due to excess calories Office Visit 10/10/2018 10:00a [facility] Internal Tuyet Alvarado, M25.562 Pain in left Medicine - Ccmob N.P. knee Office Visit 09/21/2018 9:15a Pulmonology And Noemy Bedolla, R06.83 [facility] Services Of [facility] Allred J45.909 Unspecified asthma, uncomplicated F17.210 Nicotine dependence, cigarettes, uncomplicated Office Visit 09/17/2018 [facility] Felice Oconnell E11.42 Type 2 diabetes 10:00a Neurologic Bereket Billingsley mellitus with Services Of [facility] diabetic polyneuropathy G43.009 Migraine w/o aura, not intractable, w/o status migrainosus Office Visit 09/13/2018 [facility] Gastroenterology Joshua Aguayo E66.01 Morbid 2:45p MD Juan J (severe) obesity due to excess calories E11.65 Type 2 diabetes mellitus with hyperglycemia Office 08/17/2018 [facility] Internal Tuyet E78.00 Pure hypercholesterolemia, Visit 10:20a Medicine - Varn, N.P. 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, not elsewhere Rnoald Funez DO FACC classified 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 Ronald Funez DO FACC 01/08/2019 Z72.0 Tobacco use Ronald Funez DO FACC 01/08/2019 E11.69 Type 2 diabetes mellitus with other Ronald Funez DO FACC specified complication 01/08/2019 E66.8 Other obesity Ronald Funez DO FACC 12/27/2018 S46.011D Strain of muscle(s) and tendon(s) of the Alfonso Torres MD rotator cuff of right shoulder, subsequent encounter 12/27/2018 M75.51 Bursitis of right shoulder Alfonso Torres MD 12/26/2018 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 Ronald Funez, DO FACC 12/26/2018 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, not elsewhere Ronaldteresa Funez, DO FACC classified 12/26/2018 E11.69 Type 2 diabetes mellitus with other Ronald Funez, DO FACC specified complication 12/26/2018 Z72.0 Tobacco use Ronaldteresa Funez, DO FACC 12/26/2018 E66.8 Other obesity Ronald Funez, DO FACC 12/19/2018 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 Ronaldteresa Funez, DO FACC 12/19/2018 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, not elsewhere Ronaldteresa Funez, DO FACC classified 12/19/2018 Z72.0 Tobacco use Ronaldteresa Funez, DO FACC 12/19/2018 E11.69 Type 2 diabetes mellitus with other Ronaldteresa Funez, DO FACC specified complication 12/19/2018 E66.8 Other obesity Ronaldteresa Barthno, DO FACC 12/18/2018 R93.1 Abnormal findings on diagnostic imaging Ronald Funez DO FAC of heart and coronary circulation 12/18/2018 I51.89 Other ill-defined heart diseases Ronaldteresa Barthno, DO FACC 12/17/2018 R06.02 Shortness of breath Ronald SJessica Funez, DO FACC 12/13/2018 J06.9 Acute upper [...] 11/30/2018 Z01.810 Encounter for preprocedural Ronald Funez, [facility] cardiovascular examination 11/30/2018 M17.10 Unilateral primary osteoarthritis, Ronald Funez, DO [facility] unspecified knee 11/30/2018 R06.02 Shortness of breath Ronald Funez, DO [facility] 11/30/2018 R94.31 Abnormal electrocardiogram [ECG] [EKG] Ronald Funez, DO [facility] 11/30/2018 Z72.0 Tobacco use Ronald Funez, [facility] 11/30/2018 Z68.43 Body mass index (BMI) 50.0-59.9, adult Ronald Funez, [facility] 11/30/2018 E66.8 Other obesity Ronald Funez, [facility] 11/30/2018 E11.9 Type 2 diabetes mellitus without Ronald Funez, [facility] complications 11/30/2018 I10 Essential (primary) hypertension Ronald Funez, [facility] 11/30/2018 E78.5 Hyperlipidemia, unspecified Ronald Funez, [facility] 11/28/2018 R35.0 Frequency of micturition Zsofia Rich, WAITER/WAITRESS CAPTAIN 11/28/2018 E11.65 Type 2 diabetes mellitus with Zsofia Rich, WAITER/WAITRESS CAPTAIN hyperglycemia 11/22/2018 R94.31 Abnormal electrocardiogram [ECG] [EKG] Christina Dunlap MD 11/22/2018 S46.011A Strain of muscle(s) and tendon(s) of the Alfonso Torres MD rotator cuff of right shoulder, initial encounter 11/22/2018 Z01.818 Encounter for other preprocedural Tuyet lAvarado, N.P. examination 11/22/2018 M75.51 Bursitis of right shoulder Alfonso Torres MD 11/22/2018 S83.242A Other tear of medial meniscus, current Tuyet Christiano, N.P. injury, left knee, initial encounter 11/22/2018 E11.42 Type 2 diabetes mellitus with diabetic Tuyet Alvarado, N.P. polyneuropathy 11/22/2018 Z68.43 Body mass index (BMI) 50.0-59.9, adult Tuyet Alvarado, N.P. 11/22/2018 E78.5 Hyperlipidemia, unspecified Tuyet Alvarado, N.P. 11/22/2018 J45.40 Moderate persistent asthma, Tuyet Christiano, N.P. uncomplicated 11/22/2018 R94.31 Abnormal electrocardiogram [ECG] [...] left knee Luis Murdock MD 11/20/2018 Z79.4 [facility] (current) use of insulin Luis [...] 10/24/2018 M25.462 Effusion, left knee Nhiedwar Hamilton M.D. 10/24/2018 M25.461 Effusion, left knee NhiAyana EspinoDJessica 10/24/2018 E66.01 Morbid (severe) obesity due to excess Nhi Hamilton M.D. calories 10/24/2018 M17.0 Bilateral primary osteoarthritis of knee NhiAyana ParisiDJessica 10/24/2018 M23.8x2 Other internal derangements of left knee Nhikatherine Hamilton M.D. 10/23/2018 E66.01 Morbid (severe) obesity due to excess Felice Billingsley M.D. calories 10/23/2018 E11.42 Type 2 diabetes mellitus with diabetic Felice Billingsley M.D. polyneuropathy 10/23/2018 G43.009 Migraine without aura, not intractable, Felice Billingsley M.D. without status migrainosus 10/17/2018 M25.562 Pain in left knee Parvin Oliver.DJessica 10/17/2018 M25.462 Effusion, left knee Nhikatherine Hamilton M.D. 10/17/2018 M17.12 Unilateral primary osteoarthritis, left Nhikatherine Hamilton M.D. knee 10/17/2018 Z68.43 Body mass [...] N.P. 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 Luis Murdock MD 08/02/2018 E11.65 Type 2 diabetes mellitus with Luis Murdock MD hyperglycemia Plan of Treatment Future Appointment(s):01/14/2019 8:00 am - Ronald Funez DO FAC at [facility]02/06/2019 8:30 am - Yennifer Painting NP at [facility]02/07/2019 8:45 am - Alfonso Torres MD at [facility] at Lvkzku3302/20/2019 9:00 am - Luis Murdock MD at [facility]01/29/2019 11:45 am - Felice Billingsley M.D. at [facility]02/21/2019 11:00 am - Tuyet Alvarado N.P. at [facility] Internal Medicine - [facility]01/08/2019 - Ronald Funez DO FACC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, not elsewhere classifiedComments:- Do not take any more xarelto 15 mg today- Tomorrow start taking xarelto 20 mg ONCE A DAYFollow up:Please schedule LISA Monday01/21/2019, will arrange f/u pending results of this test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New Orders:Echocardiogram, Transesophageal, Ordered: 01/08/19Z72.0 Tobacco useE11.69 Type 2 diabetes mellitus with other specified qgeuewnfcymiV95.8 Other obesity Functional Status Description No Information Available Mental Status Description No Information Available Referrals Refer to Reason for Referral Status Appt Date Ronald Funez DO, [facility] Patient is a 38 year old morbidly obese [place] woman with diabetes, hypertension, and asthma. Her EKG is abnormal. I have referred her for cardiac evaluation. Thank you for seeing this complex patient. [facility] [place] [address] [phone] Irving Qurioga MD diabetic neuropathy [address] [place] [address] [phone] Yennifer Naylor M.D. bilateral CTS [facility] [address] [place] [address] [phone] Nhi Hamilton MD Patient with bilateral knee pain, particularly Sent 2018 left, referred for evaluation and treatment. Thank you for seeing this very pleasant patient. [address] [place] [id number] [phone]
[2019-01-24 19:20] VITALS: BP 127/69
[2019-01-24] MEDS ORDERED: predniSONE TAB* 20 MG PO ONE (19:40)
[2019-01-24] MEDS ORDERED: DOXYcycline CAP(*) 100 MG PO ONE ×2 (19:40→20:53)
[2019-01-24] MEDS ORDERED: Albuterol 2.5 MG/3 ML NEB.SOL* (0.083%) INH ONE (19:40)
--- NOTE | 2019-01-24 20:53 | UC ---
Respiratory Complaint HPI - HPI Summary HPI Summary: 38-year-old female comes in with a chief complaint of cough chest congestion and chills for several days. She's been wheezing she does have a history of asthma. Her nebulizer machine is not working. She does have rhinorrhea and sputum production. - History of Current Complaint Chief Complaint: UCRespiratory Stated Complaint: URI Time Seen by Provider: 01/24/19 19:33 Hx Last Menstrual Period: beginning January Pain Intensity: 9 - Allergies/Home Medications Allergies/Adverse Reactions: Allergies Allergy/AdvReac Type Severity Reaction Status Date / Time hydrocodone Allergy Intermediate Rash And Verified 01/24/19 19:20 Itching latex Allergy Intermediate Rash And Verified 01/24/19 19:20 Itching PMH/Surg Hx/FS Hx/Imm Hx Previously Healthy: Yes - HEART TUMOR Respiratory History: Asthma Other History Of: Negative For: Anticoagulant Therapy - DVT and VIII (von willebrand) - Surgical History Surgical History: Yes Surgery Procedure, Year, and Place: 1993 tonsils, 2003 , 2004 cholecystectomy, 2012 complete tooth extraction (uppers & lowers). 05/31/17 vein - Family History Known Family History: Positive: Cardiac Disease, Other - Positive FMHx for URI, Non-Contributory Negative: Hypertension, Diabetes - Social History Alcohol Use: None Substance Use Type: Marijuana Substance Use Comment - Amount & Last Used: MARIJUANA Smoking Status (MU): Current Every Day Smoker Type: Cigarettes Amount Used/How Often: 1 pack /day Have You Smoked in the Last Year: Yes Household Exposure Type: Cigarettes - Immunization History Vaccination Up to Date: No Review of Systems All Other Systems Reviewed And Are Negative: Yes Constitutional: Positive: Chills, Other - SEE HPI Skin: Positive: Negative Eyes: Positive: Negative ENT: Positive: Nasal Discharge, Sinus Congestion Respiratory: Positive: Shortness Of Breath, Cough, Other - SEE HPI Cardiovascular: Positive: Negative Gastrointestinal: Positive: Negative Motor: Positive: Negative Neurovascular: Positive: Negative Musculoskeletal: Positive: Negative Neurological: Positive: Negative Psychological: Positive: Negative Is Patient Immunocompromised?: No Physical Exam Triage Information Reviewed: Yes Appearance: No Pain Distress, Well-Nourished, Ill-Appearing - MILD Vital Signs: Initial Vital Signs Temp 97.6 F 01/24/19 19:14 Pulse 92 01/24/19 19:14 Resp 24 01/24/19 19:14 BP 127/69 01/24/19 19:14 Pulse Ox 100 01/24/19 19:14 Vital Signs Reviewed: Yes Eye Exam: Normal Eyes: Positive: Conjunctiva Clear ENT: Positive: Pharyngeal erythema, Nasal congestion, Nasal drainage, TMs normal Neck: Positive: Supple Respiratory: Positive: No respiratory distress, Wheezing Cardiovascular: Positive: RRR Musculoskeletal: Positive: Strength Intact, ROM Intact Neurological: Positive: Alert, Muscle Tone Normal Psychological: Positive: Age Appropriate Behavior Skin Exam: Normal Respiratory Course/Dx - Course Course Of Treatment: Patient wheezing did improve somewhat with nebulizer in clinic. Given the patient's comorbidities we'll be treating with an antibiotic doxycycline. Also treating with prednisone. Patient reports that her nebulizer machine is not working. Sent home with a prescription to get a new nebulizer machine. Discussed with the patient that if she worsened or did not improve she needed to go to the Emergency department for further evaluation and care - Differential Dx/Diagnosis Provider Diagnosis: Bronchitis, Asthma Discharge ED - Sign-Out/Discharge Documenting (check all that apply): Patient Departure All imaging exams completed and their final reports reviewed: No - Discharge Plan Condition: Stable Disposition: HOME Prescriptions: Albuterol 2.5MG/3ML (0.083%)* [Ventolin 2.5 MG/3 ML NEB.NENO*] 2.5 mg INH Q4H PRN #30 neb.neno PRN Reason: Wheezing DOXYcycline CAP(*) [DOXYcycline 100MG CAP(*)] 100 mg PO BID #18 cap predniSONE TAB* [Deltasone 20 MG TAB*] 40 mg PO DAILY #8 tab Patient Education Materials: Asthma (ED), Acute Bronchitis (ED) Referrals: Tuyet Alvarado NP [Primary Care Provider] - Additional Instructions: FOLLOW UP WITH YOUR DOCTOR. GO TO THE EMERGENCY DEPARTMENT IF NOT IMPROVED OR WORSE; CHEST PAIN, SHORTNESS OF BREATH, YOU FEEL ILL OR ANY QUESTIONS OR CONCERNS. - Billing Disposition and Condition Condition: STABLE Disposition: Home
--- NOTE | 2019-01-25 08:39 | UC ---
- Progress Note Progress Note: wet read correct Course/Dx - Diagnoses Provider Diagnoses: Bronchitis, Asthma Discharge ED - Sign-Out/Discharge Documenting (check all that apply): Post-Discharge Follow Up All imaging exams completed and their final reports reviewed: Yes - Discharge Plan Condition: Stable Disposition: HOME Prescriptions: Albuterol 2.5MG/3ML (0.083%)* [Ventolin 2.5 MG/3 ML NEB.NENO*] 2.5 mg INH Q4H PRN #30 neb.neno PRN Reason: Wheezing DOXYcycline CAP(*) [DOXYcycline 100MG CAP(*)] 100 mg PO BID #18 cap predniSONE TAB* [Deltasone 20 MG TAB*] 40 mg PO DAILY #8 tab Patient Education Materials: Asthma (ED), Acute Bronchitis (ED) Referrals: Tuyet Alvarado NP [Primary Care Provider] - Additional Instructions: FOLLOW UP WITH YOUR DOCTOR. GO TO THE EMERGENCY DEPARTMENT IF NOT IMPROVED OR WORSE; CHEST PAIN, SHORTNESS OF BREATH, YOU FEEL ILL OR ANY QUESTIONS OR CONCERNS. - Billing Disposition and Condition Condition: STABLE Disposition: Home
== END 2019-01-24 21:30 | disposition home or self-care (01) ==
LOC: UCEAST 18:58
DX: J45.909 Unspecified asthma, uncomplicated (principal); F17.210 Nicotine dependence, cigarettes, uncomplicated; R09.81 Nasal congestion; Z88.5 Allergy status to narcotic agent; Z91.040 Latex allergy status
CPT/HCPCS: 71046; 99213; A9270-GY; G0463; J7512

== ENCOUNTER → 2019-01-28 11:14 | Day surgery (SDC) | payer OTHER ==
[~2019-01-28 11:14] MED LIST: Acetaminophen TAB* 325 MG PO PRN; Diazepam TAB(*) 5 MG ONE; Heparin 2 UNITS/ML IVPREMIX* 2,000 ML IV ONE; Heparin(*) 1000 UNIT/ML 10 ML VIAL CATH LAB IV ONE; Iohexol 350 (CONTRAST) 200 ML MDV IV ONE; Lidocaine 1% INJ* 10 MG/ML 30 ML SDV ONE; Midazolam* 1 MG/ML 5 ML VIAL (5 MG) ONE; NS 0.9% 1000 ML** 1,000 ML IV SCH; VERAPAMIL 2.5 MG/ML 2 ML VIAL ** 5 mg/2 ml ONE; diPHENhydraMINE PO* 25 MG ONE; fentaNYL* 50 MCG/ML 2 ML VIAL (100 MCG VIAL) ONE; nitroGLYCERIN DRIP* 25,000 MCG/250 ML BTL ONE
--- NOTE | 2019-01-28 12:52 | CATH ---
"*[facility]* [place] [address] Main: [phone] [email or web address] Cardiac Catheterization Patient: Valerie Owen I : 1980 Study Date: 01/28/2019 Age: 38 Gender: F HR: Height: 63 in /160 cm BSA: 2.44 m^2 Weight: 277 lb /125.9 kg BMI: 49.2 kg/m^2 Food Analyst: Thomas Manzo MD Ordering Physician: Thomas Manzo MD Referring Physician: Thomas Manzo MD, - Left coronary angiography. - Right coronary angiography. Summary: Normal Coronary Arteries. Recommendations: Refer to CT surgeon for right atrium mass. History: Risk factors: Current tobacco use. Hypertension. Diabetes mellitus; on therapy with insulin. Dyslipidemia. Labs, prior tests, procedures, and surgery: Blood tests: Serum potassium (K) of 3.5 mEq/l. Serum sodium (Na) of 142 mEq/l. Serum creatinine (current admission) of 0.93 mg/dl. Blood urea nitrogen of 14 mg/dl. Glucose of 149 mg/dl. Platelet count of 398 th/ul. White blood cell count (WBC) of 0.01 th/ul. Red blood cell count (RBC) of 5200 th/ul. Hematocrit of 44 %. Hemoglobin (pre-procedure) of 14.3 g/dl. Study data: Study status: Cardiac cath: elective. Location: Catheterization laboratory. Consent: The risks, benefits, and alternatives to the procedure were explained to the patient and/or their healthcare sales promotion representative and written informed consent was obtained. All available pre-procedure labs were reviewed. Height: 160 cm. 63 in. Weight: 125.9 kg. 277 lb. Body surface area: 2.44 m^2. Body mass index: 49.2 kg/m^2. Procedure: 1. Initial setup. The patient was brought to the laboratory. Surface ECG leads, blood pressure measurements, and pulse oximetric signals were monitored. A baseline seven lead ECG was recorded. A time out was observed per protocol. 2. Skin preparation. The planned puncture sites were prepped and draped in the usual sterile manner. 3. Local anesthesia. 1% lidocaine was administered. 4. Sedation. was administered. 5. Local anesthesia. 1% lidocaine (1 ml) was administered. 6. Right radial artery access. A 6F Glidesheath Slender sheath was advanced into the vessel. 7. Selective left coronary angiography. A 5F TIG 4.0 catheter was advanced into the left coronary vessel ostium under fluoroscopic guidance. Contrast was injected. Images were obtained in multiple projections. 8. Selective right coronary angiography. A 5F TIG 4.0 catheter was advanced into the right coronary vessel ostium under fluoroscopic guidance. Contrast was injected. Images were obtained in multiple projections. 9. Right radial artery hemostasis. Vessel closure was achieved with a Regular Vasc Band device. Study completion: Minimal estimated blood loss. All catheters inserted during the procedure were removed. There were no apparent complications. Administered medications: VALIUM (Diazepam), 5mg, PO. BENADRYL (Diphenhydramine), 25mg, PO. Fentanyl, 25mcg, IV. (Radial) Nitroglycerin, 300mcg, intra-arterially. (Radial) Verapamil, 3mg, intra-arterially. (Radial) Heparin, 3,000units, intra-arterially. VERSED (Midazolam), for a total dose of 2mg, IV. NaCl 0.9% , infusion , at a rate of 15 ml/hr. NaCl 0.9% , 250 ml , bolus. Contrast: Omnipaque 350 50 ml (total dose). Omnipaque 350 150 ml (wasted). Radiation: Fluoroscopy dose: 92.3 cGy. Discharge: The patient tolerated the procedure well and was discharged from the lab in stable condition. Findings Coronary arteries: The coronary circulation is co-dominant. Left main: Normal, 0% stenosis. LAD: Normal, 0% stenosis. Left circumflex: Normal, 0% stenosis. Right coronary: Normal, 0% stenosis. Hemodynamics: + + + |Stage description |Condition 1 -| + + + |Arterial pressure s/d (m)|84/56 (67) | + + + Prepared and electronically signed by Thomas Manzo MD 01/28/2019 12:51"
[2019-01-28 14:19] VITALS: BP 135/97
== END | disposition home or self-care (01) ==
LOC: CHICATH 11:14
PROVIDERS: ATTEND Specialist
DX: 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, not elsewhere classified (principal); I10 Essential (primary) hypertension; E11.69 Type 2 diabetes mellitus with other specified complication; Z79.4 Long term (current) use of insulin; E78.5 Hyperlipidemia, unspecified; G47.33 Obstructive sleep apnea (adult) (pediatric); F17.210 Nicotine dependence, cigarettes, uncomplicated; E66.9 Obesity, unspecified; Z79.84 Long term (current) use of oral hypoglycemic drugs
CPT/HCPCS: 93454; 99156; A9270-GY; J1644; J2250; J3010